=== PATIENT | female | born 1960 | race Caucasian/White ===

== ENCOUNTER 2016-09-15 13:14 | Inpatient (IN) ==
[2016-09-15] MEDS ORDERED: Ipratropium/Albuterol Neb 3 ML IH ONE (13:19)
[2016-09-15] MEDS ORDERED: predniSONE 20 MG TABLET PO ONE (13:19)
--- NOTE | 2016-09-15 13:26 | Emergency Department Note ---
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 Patient reports she started having shortness of breath last night. She reports a productive cough with yellow sputum. EMS reports when they arrived this morning she was 82% on 4 L nasal cannula. They gave her one DuoNeb in route with improvement in the high 90s. She reports getting pneumonia frequently. No fevers at home. Chest pain just with coughing. She is on multiple medications for her COPD but is unable to tell me which. No recent illnesses or antibiotic use. No other complaints. Pt Subjective Complaint: shortness of breath, cough Onset (ago): hour(s) Context: other (History of COPD) Severity: moderate Consistency/Duration: constant Improves with: nothing Worsens with: nothing Known history of: COPD Associated symptoms: Reports: chest pain (With coughing), cough, wheezing, sputum production. Denies: fever, orthopnea, lower extremity pain, nausea/ vomiting Treatment prior to arrival: oxygen, bronchodilator Cough present: Yes Cough Description: Involuntary Cough Frequency: Intermittent Sputum production: Yes Sputum Amount: Small Sputum Color: Yellow - Related Data Home oxygen amount: 3 liters Home Medications Medication Instructions Recorded Confirmed Albuterol Sulfate [Albuterol 2 puff IH Q6HR PRN #0 12/13/14 07/03/15 Inhaler] Aspirin Enteric Coated [Aspirin EC] 81 mg PO DAILY #0 12/13/14 07/03/15 Budesonide/Formoterol 160/4.5 2 puff IH BIDR #0 12/13/14 07/03/15 [Symbicort] Butalb/Acetaminophen/Caffeine 1 each PO Q6H #0 12/13/14 07/03/15 [Fioricet 50-300-40 mg Capsule] Ferrous Sulfate 325 mg PO TID #0 12/13/14 07/03/15 Folic Acid 1 mg PO DAILY #0 12/13/14 07/03/15 Furosemide [Lasix] 20 mg PO DAILY #0 12/13/14 07/03/15 GuaiFENesin/Pseudophedrine 1 each PO BID #0 12/13/14 07/03/15 [Mucinex D] Guaifenesin [Tussin] 10 ml PO Q4H #0 12/13/14 07/03/15 Ipratropium/Albuterol Neb [Duoneb] 3 ml IH Q6HR PRN #0 12/13/14 07/03/15 Isosorbide MONOnitrate (24 HR) 60 mg PO DAILY #0 12/13/14 07/03/15 [Imdur] Nitroglycerin 0.4 mg SL AD PRN #0 12/13/14 07/03/15 Omeprazole [PriLOSEC] 20 mg PO BID #0 12/13/14 07/03/15 Simvastatin [Zocor] 40 mg PO DAILY #0 12/13/14 07/03/15 Thiamine (B-1) [Vitamin B-1] 100 mg PO DAILY #0 12/13/14 07/03/15 Tiotropium [Spiriva] 18 mcg IH DAILY #0 12/13/14 07/03/15 Aclidinium [place] [Tudorza 400 mcg IH BID 01/17/15 07/03/15 Pressair] Fluticasone/Salmeterol [Advair 1 each IH BID 01/17/15 07/03/15 250-50 Diskus] Lisinopril [Zestril] 10 mg PO DAILY 01/17/15 07/03/15 Metoprolol XL (24 HR) Succ [Toprol 12.5 mg PO DAILY 01/17/15 07/03/15 XL] Multivitamin/Iron/Folic Acid 1 each PO DAILY 01/17/15 07/03/15 [Centrum Complete Multivit Tab] Roflumilast [Daliresp] 500 mcg PO DAILY 01/17/15 07/03/15 Previous Rx's Medication Instructions Recorded OxyCODONE/APAP 5/325 [Percocet 1 each PO Q6HR PRN #28 tablet 12/20/14 5/325] Levofloxacin [Levaquin] 500 mg PO DAILY #5 tablet 01/20/15 OxyCODONE Immed Rel [Roxicodone 5 5 mg PO Q6H PRN #28 tablet 01/20/15 MG] PredniSONE 10 mg PO DAILY #73 tablet 01/20/15 Levofloxacin [Levaquin] 750 mg PO DAILY #7 tablet 03/09/15 Alprazolam [Xanax] 0.5 mg PO TID 14 Days 03/10/15 Oxycodone HCl/Acetaminophen 1 each PO Q6H 7 Days 03/10/15 [Percocet 5-325 mg Tablet] predniSONE [PredniSONE] 60 mg PO DAILY 5 Days 07/30/15 Allergies Allergy/AdvReac Type Severity Reaction Status Date / Time No Known Allergies Allergy Verified 07/03/15 01:59 All systems ED: reviewed and negative except as stated. Constitutional: Denies: fever Cardiovascular: Reports: chest pain (With coughing) Respiratory: Reports: cough, dyspnea, wheezes Gastrointestinal: Denies: abdominal pain, nausea, vomiting, diarrhea Past Medical History - Past Medical History Attestation: Yes The following information was validated with the patient. Source: patient Medical history: Reports: CHF, COPD, hyperlipidemia, hypertension, myocardial infarction Surgical history: Reports: appendectomy, coronary bypass (CABG) Psychiatric history: Reports: anxiety - Social History Smoking Status: Current some day smoker Smokeless Tobacco Status: No Alcohol use: Reports: none Drug use: Reports: none Physical Exam - General Limitations: no limitations General appearance: alert, in no apparent distress - Head Head exam: atraumatic, normocephalic, normal inspection - Eye Eye exam: Present: normal appearance, EOMI - Neck Neck exam: Present: normal inspection - Chest Chest inspection: Present: normal inspection, symmetric chest wall rise - Respiratory Respiratory exam: Present: wheezes (Diffuse wheezing with diminished breath sounds in the left lower lung field.), accessory muscle use, prolonged expiratory phase - Cardiovascular Cardiovascular exam: Present: regular rate, normal rhythm, normal heart sounds - Abdominal Exam Abdominal exam: Present: soft, Non-Tender. Absent: tenderness - Extremities Exam Extremities exam: Present: normal inspection, full ROM - Expanded Upper Extremity Exam Shoulder exam: Present: normal inspection, full ROM Arm exam: Present: normal inspection, full ROM Elbow exam: Present: normal inspection, full ROM Forearm/Wrist exam: Present: normal inspection, full ROM Hand exam: Present: normal inspection, full ROM - Expanded Lower Extremity Exam Hip/Pelvis exam: Present: normal inspection, full ROM Upper leg exam: Present: normal inspection, full ROM Knee exam: Present: normal inspection, full ROM Lower leg exam: Present: normal inspection, full ROM Ankle exam: Present: normal inspection, full ROM Foot/toe exam: Present: normal inspection, full ROM - Neurological Exam Neurological exam: Present: alert - Psychiatric Psychiatric exam: Present: normal affect, normal mood - Skin Skin exam: Present: warm, dry, intact, normal color Course Course Narrative: Patient seen and examined at time of arrival. Vital signs reviewed. We will get an EKG, chest x-ray as well as labs including troponin. We will continue breathing treatments here and steroids. Disposition pending. - Reevaluation(s) Reevaluation #1: Discussed results of imaging and lab work with the patient. Vital Signs Temperature 98 F 09/15/16 13:18 Pulse Rate 114 09/15/16 13:18 Respiratory Rate 28 09/15/16 13:18 Blood Pressure 97/45 09/15/16 13:18 O2 Sat by Pulse Oximetry 86 09/15/16 13:18 Temperature 98 F 09/15/16 13:18 Pulse Rate 112 09/15/16 16:00 Respiratory Rate 24 09/15/16 16:00 Blood Pressure 120/62 09/15/16 16:00 O2 Sat by Pulse Oximetry 94 09/15/16 16:00 Oxygen Delivery Oxygen Delivery Nasal Cannula Shortness of Breath/Dyspnea - [facility] Narrative Medical decision making narrative: 56-year-old female presents to the ER via EMS due to shortness of breath and cough one day duration. Afebrile here with diffuse wheezing. EKG is sinus without ischemic changes. Chest x-ray with right lower lobe infiltrate. We pursued a CTA of the chest with no PE however patchy infiltrates of the right middle and lower lobe. Blood cultures obtained and patient will be started on Levaquin for community-acquired pneumonia and admitted to the hospitalist service for community-acquired pneumonia, hypoxia and COPD exacerbation. - Lab Data Lab results reviewed: Yes I reviewed the patient's lab results. Result diagrams: 09/15/16 13:54 09/15/16 13:54 Lab Results 09/15/16 09/15/16 09/15/16 Range/Units 13:54 13:54 13:54 WBC 12.1 H (4.3-11.1) K/mcL RBC 3.91 (3.82-4.97) M/mcL Hgb 10.7 L (11.5-15.4) g/dL Hct 36.8 (35.3-44.9) % MCV 94.1 (83.0-100.0) fL MCH 27.4 L (28.0-33.3) pg MCHC 29.1 L (31.6-35.5) g/dL RDW 13.6 (11.5-14.5) % Plt Count 380 (140-400) K/mcL MPV 10.7 (9.4-12.4) fL Immature Gran % 0.6 (0-4) % Seg Neutrophils % 82.0 % Lymphocytes % 10.0 % Monocytes % 5.4 % Eosinophils % 1.5 % Basophils % 0.5 % Neutrophils # 9.9 H (1.6-8.9) K/mcL Lymphocytes # 1.2 (0.6-4.6) K/mcL Monocytes # 0.7 (0.0-1.3) K/mcL Eosinophils # 0.2 (0.0-0.6) K/mcL Basophils # 0.1 (0.0-0.2) K/mcL Platelet Estimate Normal (Normal) Immature Plt Fraction 8.1 H (1.1-6.1) % Anisocytosis 2+ A (Not Present) Microcytosis Present A (Not Present) Sodium 141 (136-145) mEq/L Potassium 3.9 (3.5-4.5) mEq/L Chloride 98 (98-109) mEq/L Carbon Dioxide 31 H (19-29) mEq/L BUN 9 (7-20) mg/dL Creatinine 0.87 (0.57-1.11) mg/dL Est GFR ( Amer) > 60 (> 60) Est GFR (Non-Af Amer) > 60 (> 60) BUN/Creatinine Ratio 10 (6-26) Glucose 120 H (70-99) mg/dL Calculated Osmolality 292 (280-300) Calcium 10.5 (8.6-10.8) mg/dL Troponin I 0.00 (0-0.03) ng/mL B-Natriuretic Peptide (0-100) pg/mL 09/15/16 Range/Units 13:54 WBC (4.3-11.1) K/mcL RBC (3.82-4.97) M/mcL Hgb (11.5-15.4) g/dL Hct (35.3-44.9) % MCV (83.0-100.0) fL MCH (28.0-33.3) pg MCHC (31.6-35.5) g/dL RDW (11.5-14.5) % Plt Count (140-400) K/mcL MPV (9.4-12.4) fL Immature Gran % (0-4) % Seg Neutrophils % % Lymphocytes % % Monocytes % % Eosinophils % % Basophils % % Neutrophils # (1.6-8.9) K/mcL Lymphocytes # (0.6-4.6) K/mcL Monocytes # (0.0-1.3) K/mcL Eosinophils # (0.0-0.6) K/mcL Basophils # (0.0-0.2) K/mcL Platelet Estimate (Normal) Immature Plt Fraction (1.1-6.1) % Anisocytosis (Not Present) Microcytosis (Not Present) Sodium (136-145) mEq/L Potassium (3.5-4.5) mEq/L Chloride (98-109) mEq/L Carbon Dioxide (19-29) mEq/L BUN (7-20) mg/dL Creatinine (0.57-1.11) mg/dL Est GFR ( Amer) (> 60) Est GFR (Non-Af Amer) (> 60) BUN/Creatinine Ratio (6-26) Glucose (70-99) mg/dL Calculated Osmolality (280-300) Calcium (8.6-10.8) mg/dL Troponin I (0-0.03) ng/mL B-Natriuretic Peptide 106 H (0-100) pg/mL - Radiology Data Radiology results reviewed: Yes I reviewed the patient's radiology results. Chest X-Ray 09/15/16 13:19 IMPRESSION: 1. Findings consistent with COPD. 2. New patchy bilateral pulmonary nodular opacities. Given the interval change since the 08/22/2015 exam this likely represents acute pneumonia or possible septic emboli. Metastatic disease is less likely. D/ / 09/15/2016 13:42:35 John Phan MD / osmar Interpreting Provider: John Phan MD Chest CTA 09/15/16 14:18 IMPRESSION: No acute pulmonary embolus is identified Extensive right lower lobe airspace disease. Patchy airspace disease right middle lobe. Severe emphysema re- demonstrated with scarring changes within the posterior aspect of the right upper lung. D/ / Harshad Lin MD / Harshad Lin MD Interpreting Provider: Harshad Lin MD - EKG Data EKG attestation: Yes I reviewed and interpreted this EKG. EKG results narrative: EKG demonstrates normal sinus rhythm with a rate of 88 bpm. Normal axis. WI interval 139 QRS duration [address] elevations or depressions. No acute ischemic findings. Changes from previous EKG included improvement in rate. S.B.A.R. - S.B.A.RShawna Situation: Demographics, MOA Background: Presenting Complaint, Relevant PMH, Meds, & Allergies Assessment: Vital Signs, Course and respsone to treatment, Exam Concerns, Patient/Family Expectation, Pertinant Lab Results, Outstanding Labs Recommendation: Barrier(s) to disposition, Recommendation based on pending studies, treatments, or consults S.B.A.RShawna Report Given to: Dr. Benito Otto Repor Time: 16:28 Attestation Statement - Attestation Attestation: I examined this patient and my medical decision-making was reviewed with the SYNTHETIC CHEMIST/PA/Advanced Practice Nurse/Resident Physician. I agree with the documented findings, disposition and treatment plan as described except to the extent set forth below.
[2016-09-15 14:02] LABS: Basophils # 0.1 K/mcL (0.0-0.2); Basophils % 0.5 %; Eosinophils # 0.2 K/mcL (0.0-0.6); Eosinophils % 1.5 %; Hematocrit 36.8 % (35.3-44.9); Hemoglobin 10.7 g/dL (11.5-15.4); Immature Granulocytes % 0.6 % (0-4); Immature Platelets 8.1 % (1.1-6.1); Lymphocytes # 1.2 K/mcL (0.6-4.6); Mean Corpuscular HGB Conc 29.1 g/dL (31.6-35.5); Mean Corpuscular Hemoglobin 27.4 pg (28.0-33.3); Mean Corpuscular Volume 94.1 fL (83.0-100.0); Mean Platelet Volume 10.7 fL (9.4-12.4); Monocytes # 0.7 K/mcL (0.0-1.3); Monocytes % 5.4 %; Neutrophils # 9.9 K/mcL (1.6-8.9); Platelet Count 380 K/mcL (140-400); Red Blood Count 3.91 M/mcL (3.82-4.97); Red Cell Distribution Width 13.6 % (11.5-14.5)
[2016-09-15 14:13] LABS: BUN/Creatinine Ratio 10 (6-26); Blood Urea Nitrogen 9 mg/dL (7-20); Calcium 10.5 mg/dL (8.6-10.8); Carbon Dioxide 31 mEq/L (19-29); Chloride 98 mEq/L (98-109); Glucose 120 mg/dL (70-99); Osmolality,Calculated 292 (280-300); Potassium 3.9 mEq/L (3.5-4.5); Sodium 141 mEq/L (136-145); eGFR For African Americans > 60 (> 60); eGFR For Non-African Americans > 60 (> 60)
[2016-09-15 14:20] LABS: Anisocytosis 2+ (Not Present); Microcytosis Present (Not Present); Platelet Estimate Normal (Normal)
[2016-09-15] MEDS ORDERED: 0.9 % Sodium Chloride 500 ML IVC ONE (14:34)
[2016-09-15] MEDS ORDERED: Levofloxacin 750 MG/150 ML 750 MG/150 ML BAG IVPB ONE (16:09)
[2016-09-15] MEDS ORDERED: Sennosides/Docusate Sodium TABLET PO PRN (17:54)
--- NOTE | 2016-09-15 17:57 | Internal Med History&Physical ---
Date of Encounter: 09/15/16 Time of Encounter: 17:56 Assessment and Plan (1) COPD exacerbation Current visit: Yes Status: Acute We will keep the patient today on steroids and nebulizer treatment. (2) Community acquired pneumonia Current visit: Yes Status: Acute I will start the patient on levofloxacin intravenously. Because of hypotension on presentation with systolic running between 90 and 100 I will broaden coverage empirically to cover for Pseudomonas with Zosyn until cultures are back. (3) Acute respiratory failure with hypoxia Current visit: Yes Status: Acute Patient was saturating early 80s on our evidence to the emergency room. She has been requiring 4 L of oxygen to maintain her saturation above 90%. She is usually on 2.5 to 3 L of oxygen at home. Internal Medicine - H&P: HPI Chief complaint: sob History of present illness: Ms. Vaughn is a 56 year old female with history of COPD on 2.5-3 L of oxygen 25/11 presents to the emergency room today with the main complain of shortness of breath. For the past day or so patient started noticing progressive shortness of breath to the point where she is unable to breathe at rest associated with productive cough all yellowish and greenish sputum, chills, chest wheezing. She had called the paramedics and she was found to be saturating the early 80s. She denies any recent hospitalization within the past 3 months. No recent antibiotic use. She denies any concerns for aspiration. She has some chest pain only when she coughs or takes a deep breath. She denies any lower extremity swelling, orthopnea, paroxysmal nocturnal dyspnea. Past Med Surg Social Fam HX - Past Medical History Medical history: CHF, COPD, hyperlipidemia, hypertension, myocardial infarction Psychiatric history: anxiety - Past Surgical History Surgical History: appendectomy, coronary bypass (CABG) - Social History Smoking Status: Current some day smoker Smokeless Tobacco Status: No Alcohol use: none Drug use: none - Family History Father Living Status: Hx Family Cardiac Disorders: Yes (Father of ID) Internal Medicine - H&P: Meds Albuterol Sulfate [Albuterol Inhaler] 2 puff IH Q6HR PRN #0 12/13/14 [History] Aspirin Enteric Coated [Aspirin EC] 81 mg PO DAILY #0 12/13/14 [History] Ferrous Sulfate 325 mg PO TID #0 12/13/14 [History] Folic Acid 1 mg PO DAILY #0 12/13/14 [History] Nitroglycerin 0.4 mg SL AD PRN #0 12/13/14 [History] Omeprazole [PriLOSEC] 20 mg PO BID #0 12/13/14 [History] Thiamine (B-1) [Vitamin B-1] 100 mg PO DAILY #0 12/13/14 [History] Lisinopril [Zestril] 10 mg PO DAILY 01/17/15 [History] Metoprolol XL (24 HR) Succ [Toprol XL] 25 mg PO DAILY 01/17/15 [History] Multivitamin/Iron/Folic Acid [Centrum Complete Multivit Tab] 1 each PO DAILY [History] Cetirizine HCl [All Day Allergy] 10 mg PO DAILY PRN 09/15/16 [History] Fluticasone Propionate [Flovent Hfa] 1 puff IH BID PRN 09/15/16 [History] Ipratropium/Albuterol Sulfate [Combivent Respimat Inhal [place]] 1 puff IH QID PRN 09/15/16 [History] Sennosides/Docusate Sodium [Senna-S Tablet] 1 each PO DAILY PRN 09/15/16 [ History] Simvastatin [Zocor] 10 mg PO HS 09/15/16 [History] Zolpidem [Ambien] 10 mg PO HS PRN 09/15/16 [History] Allergies No Known Allergies Allergy (Verified 09/15/16 17:19) All Systems PM: A 10-system review of systems was performed and is negative for pertinent findings except as documented above in the HPI. Review of systems: 10 point review of systems is negative except for HPI - Constitutional Vitals: Temp Pulse Resp BP Pulse Ox 98 F 95 18 102/58 100 09/15/16 13:18 09/15/16 17:03 09/15/16 17:03 09/15/16 17:03 09/15/16 17:03 Exam: Gen.: patient is alert oriented times 3 not in distress. Cardiac: normal S1 S2 no additional sounds chest: Diminished air entry in the right base abdomen: soft nontender nondistended lower extremity: lax calf muscles. Neuro: No focal deficits. Internal Med - H&P Results - Labs CBC & Chem 7: 09/15/16 13:54 09/15/16 13:54 Labs: Short CBC 09/15/16 Range/Units 13:54 WBC 12.1 H (4.3-11.1) K/mcL Hgb 10.7 L (11.5-15.4) g/dL Hct 36.8 (35.3-44.9) % Plt Count 380 (140-400) K/mcL Neutrophils # 9.9 H (1.6-8.9) K/mcL BMP 09/15/16 13:54 Sodium 141 Potassium 3.9 Chloride 98 Carbon Dioxide 31 H BUN 9 Creatinine 0.87 Glucose 120 H Calcium 10.5 Cardiac Enzymes 09/15/16 Range/Units 13:54 Troponin I 0.00 (0-0.03) ng/mL - Impressions ITS Impressions Chest X-Ray 09/15/16 13:19 IMPRESSION: 1. Findings consistent with COPD. 2. New patchy bilateral pulmonary nodular opacities. Given the interval change since the 08/22/2015 exam this likely represents acute pneumonia or possible septic emboli. Metastatic disease is less likely. D/ / 09/15/2016 13:42:35 John Phan MD / osmar Interpreting Provider: John Phan MD Chest CTA 09/15/16 14:18 IMPRESSION: No acute pulmonary embolus is identified Extensive right lower lobe airspace disease. Patchy airspace disease right middle lobe. Severe emphysema re- demonstrated with scarring changes within the posterior aspect of the right upper lung. D/ / Harshad Lin MD / Harshad Lin MD Interpreting Provider: Harshad Lin MD
[2016-09-15] MEDS: Piperacillin/Tazobactam 3.375 GM in D5% in Water (Mini-Bag+) 100 ML IVPB SCH (18:48)
[2016-09-15] MEDS: MethylPREDNISolone 40 MG/ML VIAL IVP SCH ×2 (18:48→23:55)
[2016-09-15] MEDS ORDERED: Albuterol 2.5 MG/3 ML NEBULIZER IH PRN (19:52)
[2016-09-15] MEDS ORDERED: Ipratropium/Albuterol Neb 3 ML ONE (19:55)
[2016-09-15] MEDS: Ipratropium/Albuterol Neb 3 ML IH SCH (19:58)
[2016-09-15] MEDS ORDERED: Fluticasone Propionate Nasal 50 MCG/SPRAY BOTTLE NS PRN (22:00)
[2016-09-16] MEDS: Ipratropium/Albuterol Neb 3 ML IH SCH ×6 (00:01→20:00)
[2016-09-16] MEDS: Acetaminophen 325 MG TABLET PO PRN ×3 (00:20→19:29)
[2016-09-16] MEDS: Piperacillin/Tazobactam 3.375 GM in D5% in Water (Mini-Bag+) 100 ML IVPB SCH ×3 (02:15→17:08)
[2016-09-16] MEDS: MethylPREDNISolone 40 MG/ML VIAL IVP SCH ×3 (04:38→17:08)
[2016-09-16 08:26] LABS: Hematocrit 29.5 % (35.3-44.9); Hemoglobin 8.9 g/dL (11.5-15.4); Immature Granulocytes % 2.2 % (0-4); Lymphocytes # 0.4 K/mcL (0.6-4.6); Lymphocytes % 9.7 %; Mean Corpuscular HGB Conc 30.2 g/dL (31.6-35.5); Mean Corpuscular Hemoglobin 27.2 pg (28.0-33.3); Mean Corpuscular Volume 90.2 fL (83.0-100.0); Mean Platelet Volume 11.1 fL (9.4-12.4); Monocytes # 0.1 K/mcL (0.0-1.3); Monocytes % 1.7 %; Neutrophils # 3.5 K/mcL (1.6-8.9); Platelet Count 270 K/mcL (140-400); Red Blood Count 3.27 M/mcL (3.82-4.97); Red Cell Distribution Width 13.2 % (11.5-14.5); Segmented Neutrophils % 86.4 %
[2016-09-16] MEDS: Folic Acid 1 MG TABLET PO SCH (08:32)
[2016-09-16] MEDS: Aspirin Enteric Coated 81 MG Tablet PO SCH (08:32)
[2016-09-16] MEDS: Thiamine (B-1) 100 MG TABLET PO SCH (08:32)
[2016-09-16 08:37] LABS: BUN/Creatinine Ratio 13 (6-26); Blood Urea Nitrogen 11 mg/dL (7-20); Calcium 9.4 mg/dL (8.6-10.8); Carbon Dioxide 28 mEq/L (19-29); Chloride 97 mEq/L (98-109); Glucose 159 mg/dL (70-99); Osmolality,Calculated 291 (280-300); Potassium 3.8 mEq/L (3.5-4.5); Sodium 139 mEq/L (136-145); eGFR For African Americans > 60 (> 60); eGFR For Non-African Americans > 60 (> 60)
[2016-09-16] MEDS: ALPRAZolam 0.5 MG TABLET PO PRN ×2 (10:30→19:29)
--- NOTE | 2016-09-16 11:32 | Electrocardiograph Report ---
[place] [id number] Test Date: 2016-09-15 Pat Name: Amy Vaughn Department: 102 Room: 2A Gender: F Voice Teacher: : 1960 Requested By: Hira Tom Order Number: [id number] Reading MD: Dunia Gomez Measurements Intervals [place] Rate: 88 P: 85 MN: 139 QRS: 54 QRSD: 85 T: 75 QT: 358 QTc: 404 Interpretive Statements SINUS RHYTHM NONSPECIFIC ST ABNORMALITIES Electronically Signed On 09-16-2016 11:30:36 EDT by Dunia Gomez
--- NOTE | 2016-09-16 11:53 | Internal Med Progress Note ---
Date of Encounter: 09/16/16 Time of Encounter: 11:51 - Assessment and plan (1) Acute exacerbation of chronic obstructive airways disease Current Visit: No Status: Resolved Assessment and plan: clinically better, will taper the steroids, continue duonebs saturating well on 3l, at home she is on 2.5 l (2) CAD (coronary artery disease) Current Visit: No Status: Chronic Qualifiers: Coronary Disease-Associated Artery/Lesion type: redding artery [place] vs. transplanted heart: redding heart Associated angina: without angina Qualified Code(s): I25.10 - Atherosclerotic heart disease of redding coronary artery without angina pectoris (3) Hx of CABG Current Visit: No Status: Chronic (4) HTN (hypertension) Current Visit: No Status: Chronic Qualifiers: Hypertension type: essential hypertension Qualified Code(s): I10 - Essential (primary) hypertension (5) Community acquired pneumonia Current Visit: Yes Status: Acute Assessment and plan: CT shows extensive rt. lower airspace disease, started on zosyn and levaquin will continue IV antibiotics,send sputum for gram stain. will de escalate once cx results are back and once clinically imporving. (6) Acute respiratory failure with hypoxia Current Visit: Yes Status: Acute Assessment and plan: improved with breathing tx and IV antibiotics and steroids most likely 2/2 pneumonia and COPD exacerbation currently at 2 l and saturating 99%. - Subjective Interval history: patient admitted for COPD exacerbation and pneumonia, reports that the breathing is better than yesterday. c/o cough with productive sputum, denies chest pain or sob at this time. - Constitutional Vitals: Temp Pulse Resp BP Pulse Ox 98.0 F 99 16 98/61 99 09/16/16 11:33 09/16/16 11:33 09/16/16 11:33 09/16/16 11:33 09/16/16 11:33 General appearance: Present: A&O X 3 Exam: Gen.: patient is alert oriented times 3 not in distress. Cardiac: normal S1 S2 no additional sounds chest: b/l clear, no wheezing or creptns abdomen: soft nontender nondistended lower extremity: lax calf muscles. Neuro: No focal deficits. Internal Medicine: Result - Labs CBC & Chem 7: 09/16/16 08:19 09/16/16 08:19 Labs: Short CBC 09/16/16 Range/Units 08:19 WBC 4.1 L D (4.3-11.1) K/mcL Hgb 8.9 L D (11.5-15.4) g/dL Hct 29.5 L (35.3-44.9) % Plt Count 270 (140-400) K/mcL Neutrophils # 3.5 (1.6-8.9) K/mcL BMP 09/16/16 08:19 Sodium 139 Potassium 3.8 Chloride 97 L Carbon Dioxide 28 BUN 11 Creatinine 0.83 Glucose 159 H Calcium 9.4 Consult Discharge Plan - Plan Referrals: NO,PCP [Primary Care Provider] -
[2016-09-16] MEDS ORDERED: *HR* OxyCODONE/APAP 5/325 TABLET PO ONE (17:14)
[2016-09-17] MEDS: MethylPREDNISolone 40 MG/ML VIAL IVP SCH ×2 (00:07→05:11)
[2016-09-17] MEDS: Ipratropium/Albuterol Neb 3 ML IH SCH ×7 (00:10→23:14)
[2016-09-17] MEDS: Piperacillin/Tazobactam 3.375 GM in D5% in Water (Mini-Bag+) 100 ML IVPB SCH ×2 (02:39→10:19)
[2016-09-17] MEDS: Acetaminophen 325 MG TABLET PO PRN ×2 (05:10→16:31)
[2016-09-17] MEDS: Aspirin Enteric Coated 81 MG Tablet PO SCH (08:40)
[2016-09-17] MEDS: Folic Acid 1 MG TABLET PO SCH (08:40)
[2016-09-17] MEDS: Thiamine (B-1) 100 MG TABLET PO SCH (08:40)
[2016-09-17] MEDS ORDERED: Levofloxacin 750 MG/150 ML 750 MG/150 ML BAG IVPB SCH (09:00)
[2016-09-17 09:28] LABS: Hematocrit 28.2 % (35.3-44.9); Hemoglobin 8.5 g/dL (11.5-15.4); Immature Granulocytes % 1.5 % (0-4); Immature Platelets 9.3 % (1.1-6.1); Lymphocytes # 0.3 K/mcL (0.6-4.6); Lymphocytes % 4.4 %; Mean Corpuscular HGB Conc 30.1 g/dL (31.6-35.5); Mean Corpuscular Hemoglobin 27.8 pg (28.0-33.3); Mean Corpuscular Volume 92.2 fL (83.0-100.0); Mean Platelet Volume 11.2 fL (9.4-12.4); Monocytes # 0.1 K/mcL (0.0-1.3); Monocytes % 1.5 %; Neutrophils # 6.4 K/mcL (1.6-8.9); Platelet Count 266 K/mcL (140-400); Red Blood Count 3.06 M/mcL (3.82-4.97); Red Cell Distribution Width 13.4 % (11.5-14.5); Segmented Neutrophils % 92.6 %
[2016-09-17] MEDS: ALPRAZolam 0.5 MG TABLET PO PRN (09:33)
[2016-09-17 09:48] LABS: BUN/Creatinine Ratio 22 (6-26); Blood Urea Nitrogen 20 mg/dL (7-20); Calcium 9.1 mg/dL (8.6-10.8); Carbon Dioxide 34 mEq/L (19-29); Chloride 92 mEq/L (98-109); Glucose 235 mg/dL (70-99); Osmolality,Calculated 294 (280-300); Sodium 137 mEq/L (136-145); eGFR For African Americans > 60 (> 60); eGFR For Non-African Americans > 60 (> 60)
[2016-09-17] MEDS ORDERED: methylPREDNISolone 125 MG/2 ML VIAL IVP SCH (13:45)
--- NOTE | 2016-09-17 13:59 | Internal Med Progress Note ---
Date of Encounter: 09/17/16 Time of Encounter: 13:58 - Assessment and plan (1) Acute exacerbation of chronic obstructive airways disease Current Visit: No Status: Resolved Assessment and plan: clinically better, will taper the steroids, continue duonebs saturating well on 3l, at home she is on 2.5 l (2) CAD (coronary artery disease) Current Visit: No Status: Chronic Qualifiers: Coronary Disease-Associated Artery/Lesion type: eek artery [place] vs. transplanted heart: eek heart Associated angina: without angina Qualified Code(s): I25.10 - Atherosclerotic heart disease of eek coronary artery without angina pectoris (3) Hx of CABG Current Visit: No Status: Chronic (4) HTN (hypertension) Current Visit: No Status: Chronic Qualifiers: Hypertension type: essential hypertension Qualified Code(s): I10 - Essential (primary) hypertension (5) Community acquired pneumonia Current Visit: Yes Status: Acute Assessment and plan: CT shows extensive rt. lower airspace disease, started on zosyn and levaquin sputum for gram stain shows gram positive cocci. no leukocytosis or fever at this time. We will stop the Zosyn and continue levofloxacin for now. Possible discharge tomorrow if stable overnight. (6) Acute respiratory failure with hypoxia Current Visit: Yes Status: Acute Assessment and plan: improved with breathing tx and IV antibiotics and steroids most likely 2/2 pneumonia and COPD exacerbation currently at 2 l and saturating 99%. - Subjective Interval history: patient admitted for COPD exacerbation and pneumonia, reports that the breathing is better than yesterday. c/o cough with productive sputum, denies chest pain or sob at this time. - Constitutional Vitals: Temp Pulse Resp BP Pulse Ox 98.0 F 109 16 107/64 95 09/17/16 10:38 09/17/16 10:38 09/17/16 10:59 09/17/16 10:38 09/17/16 10:59 General appearance: Present: A&O X 3 Exam: Gen.: patient is alert oriented times 3 not in distress. Cardiac: normal S1 S2 no additional sounds chest: b/l clear, no wheezing or creptns abdomen: soft nontender nondistended lower extremity: lax calf muscles. Neuro: No focal deficits. Internal Medicine: Result - Labs CBC & Chem 7: 09/17/16 09:11 09/17/16 09:11 Labs: Short CBC 05/16/17 Range/Units 09:11 WBC 6.9 D (4.3-11.1) K/mcL Hgb 8.5 L (11.5-15.4) g/dL Hct 28.2 L (35.3-44.9) % Plt Count 266 (140-400) K/mcL Neutrophils # 6.4 (1.6-8.9) K/mcL BMP 09/17/16 09:11 Sodium 137 Potassium 4.0 Chloride 92 L Carbon Dioxide 34 H BUN 20 Creatinine 0.89 Glucose 235 H Calcium 9.1 Consult Discharge Plan - Plan Referrals: NO,PCP [Primary Care Provider] - (patient is unsure to have a PCP, stated she has no transportation)
[2016-09-17] MEDS ORDERED: Levalbuterol Neb 1.25 MG/3 ML IH PRN (20:06)
[2016-09-17] MEDS ORDERED: 0.9 % Sodium Chloride 250 ML IVC ONE (20:08)
[2016-09-17] MEDS ORDERED: Nitroglycerin 0.4 MG TAB.SUBL SL STA (21:52)
[2016-09-17] MEDS: Nitroglycerin 0.4 MG TAB.SUBL SL PRN (22:08)
[2016-09-17] MEDS ORDERED: *HR* Morphine 2 MG/ML SYRINGE IVP ONE (22:29)
[2016-09-17] MEDS ORDERED: 0.9 % Sodium Chloride 500 ML IVC ONE (22:31)
[2016-09-18] MEDS ORDERED: *HR* HYDROmorphone (PF) 1 MG/ML SYRINGE IVP ONE (00:03)
[2016-09-18] MEDS ORDERED: 0.9 % Sodium Chloride 500 ML IVC ONE (00:03)
[2016-09-18 00:47] LABS: Chol/HDL Ratio 3.5 (0-4.9)
[2016-09-18] MEDS ORDERED: *HR* OxyCODONE/APAP 5/325 TABLET PO ONE (01:26)
[2016-09-18] MEDS ORDERED: *HR* OxyCODONE Immed Rel 5 MG TABLET PO ONE (03:42)
[2016-09-18] MEDS: Ipratropium/Albuterol Neb 3 ML IH SCH ×6 (03:45→23:06)
[2016-09-18] MEDS: Acetaminophen 325 MG TABLET PO PRN ×2 (05:18→16:05)
[2016-09-18] MEDS: ALPRAZolam 0.5 MG TABLET PO PRN ×2 (05:18→16:05)
[2016-09-18 08:14] LABS: BUN/Creatinine Ratio 19 (6-26); Blood Urea Nitrogen 17 mg/dL (7-20); Calcium 8.7 mg/dL (8.6-10.8); Carbon Dioxide 32 mEq/L (19-29); Chloride 99 mEq/L (98-109); Glucose 106 mg/dL (70-99); Osmolality,Calculated 300 (280-300); Potassium 3.3 mEq/L (3.5-4.5); Sodium 144 mEq/L (136-145); eGFR For African Americans > 60 (> 60); eGFR For Non-African Americans > 60 (> 60)
[2016-09-18] MEDS: Aspirin Enteric Coated 81 MG Tablet PO SCH (08:39)
[2016-09-18] MEDS: Thiamine (B-1) 100 MG TABLET PO SCH (08:39)
[2016-09-18] MEDS: Folic Acid 1 MG TABLET PO SCH (08:39)
[2016-09-18] MEDS: predniSONE 20 MG TABLET PO SCH (08:39)
[2016-09-18] MEDS: Levofloxacin 750 MG/150 ML 750 MG/150 ML BAG IVPB SCH (08:40)
[2016-09-18 08:52] LABS: Basophils % 0.2 %; Eosinophils % 0.1 %; Hematocrit 28.7 % (35.3-44.9); Hemoglobin 8.5 g/dL (11.5-15.4); Immature Granulocytes % 2.8 % (0-4); Lymphocytes # 1.6 K/mcL (0.6-4.6); Mean Corpuscular HGB Conc 29.6 g/dL (31.6-35.5); Mean Corpuscular Volume 94.4 fL (83.0-100.0); Mean Platelet Volume 11.7 fL (9.4-12.4); Monocytes # 0.7 K/mcL (0.0-1.3); Monocytes % 8.6 %; Neutrophils # 6.1 K/mcL (1.6-8.9); Nucleated Red Blood Cells 0.2 /100 WBC (0); Platelet Count 274 K/mcL (140-400); Red Blood Count 3.04 M/mcL (3.82-4.97); Red Cell Distribution Width 13.7 % (11.5-14.5); Segmented Neutrophils % 70.3 %
[2016-09-18] MEDS ORDERED: Ondansetron 4 MG/2 ML VIAL IVP PRN (11:07)
--- NOTE | 2016-09-18 11:57 | Internal Med Progress Note ---
Date of Encounter: 09/18/16 Time of Encounter: 11:51 - Assessment and plan (1) Acute respiratory failure with hypoxia Current Visit: Yes Status: Acute Assessment and plan: improved with breathing tx and IV antibiotics and steroids most likely 2/2 pneumonia and COPD exacerbation currently at 2 l and saturating 99%. (2) Community acquired pneumonia Current Visit: Yes Status: Acute Assessment and plan: CT shows extensive rt. lower airspace disease, started on zosyn and levaquin initially sputum for gram stain shows gram positive cocci. no leukocytosis or fever at this time. continue levofloxacin for now. discharge tomorrow if stable overnight. (3) Acute exacerbation of chronic obstructive airways disease Current Visit: No Status: Resolved Assessment and plan: clinically better, steroids has been tapered and changed to oral/ saturating well on2l, at home she is on 2.5 l dc tomm am (4) CAD (coronary artery disease) Current Visit: No Status: Chronic Qualifiers: Coronary Disease-Associated Artery/Lesion type: [place] artery [place] vs. transplanted heart: [place] heart Associated angina: without angina Qualified Code(s): I25.10 - Atherosclerotic heart disease of [place] coronary artery without angina pectoris (5) Hx of CABG Current Visit: No Status: Chronic (6) HTN (hypertension) Current Visit: No Status: Chronic Qualifiers: Hypertension type: essential hypertension Qualified Code(s): I10 - Essential (primary) hypertension - Subjective Interval history: patient admitted for COPD exacerbation and pneumonia, reports that keke feels nauseated today and says that she is not ready to be discharged yet. c/o cough with productive sputum, denies chest pain or sob at this time. - Constitutional Vitals: Temp Pulse Resp BP Pulse Ox 98.3 F 110 16 97/63 100 09/18/16 07:24 09/18/16 07:24 09/18/16 11:14 09/18/16 07:24 09/18/16 11:14 General appearance: Present: A&O X 3 Exam: Gen.: patient is alert oriented times 3 not in distress. Cardiac: normal S1 S2 no additional sounds chest: b/l clear, no wheezing or creptns abdomen: soft nontender nondistended lower extremity: lax calf muscles. Neuro: No focal deficits. Internal Medicine: Result - Labs CBC & Chem 7: 09/18/16 05:14 09/18/16 05:14 Labs: Short CBC 09/18/16 Range/Units 05:14 WBC 8.6 (4.3-11.1) K/mcL Hgb 8.5 L (11.5-15.4) g/dL Hct 28.7 L (35.3-44.9) % Plt Count 274 (140-400) K/mcL Neutrophils # 6.1 (1.6-8.9) K/mcL BMP 09/18/16 05:14 Sodium 144 D Potassium 3.3 L Chloride 99 Carbon Dioxide 32 H BUN 17 Creatinine 0.90 Glucose 106 H Calcium 8.7 Cardiac Enzymes 09/18/16 09/18/16 09/18/16 Range/Units 00:18 05:14 10:33 Troponin I 0.01 0.02 0.01 (0-0.03) ng/mL Consult Discharge Plan - Plan Referrals: NO,PCP [Primary Care Provider] - (patient is unsure to have a PCP, stated she has no transportation)
--- NOTE | 2016-09-18 20:38 | Electrocardiograph Report ---
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
--- NOTE | 2016-09-18 20:42 | Electrocardiograph Report ---
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
[2016-09-18] MEDS: Nitroglycerin 0.4 MG TAB.SUBL SL PRN ×3 (21:23→21:37)
[2016-09-18] MEDS: *HR* OxyCODONE Immed Rel 5 MG TABLET PO PRN (22:04)
[2016-09-18] MEDS ORDERED: *HR* Morphine 2 MG/ML SYRINGE IVP ONE (22:59)
[2016-09-19] MEDS: ALPRAZolam 0.5 MG TABLET PO PRN (02:05)
[2016-09-19] MEDS: Ipratropium/Albuterol Neb 3 ML IH SCH ×4 (03:52→15:04)
[2016-09-19] MEDS: *HR* OxyCODONE Immed Rel 5 MG TABLET PO PRN (06:20)
[2016-09-19] MEDS: Aspirin Enteric Coated 81 MG Tablet PO SCH (08:43)
[2016-09-19] MEDS: Thiamine (B-1) 100 MG TABLET PO SCH (08:43)
[2016-09-19] MEDS: predniSONE 20 MG TABLET PO SCH (08:44)
[2016-09-19] MEDS: Levofloxacin 750 MG/150 ML 750 MG/150 ML BAG IVPB SCH (08:44)
[2016-09-19] MEDS: Folic Acid 1 MG TABLET PO SCH (08:44)
--- NOTE | 2016-09-19 08:45 | Discharge Summary ---
Date of Encounter: 09/19/16 Time of Encounter: 08:34 - Discharge Diagnosis (1) Acute respiratory failure with hypoxia Priority: Primary Status: Acute (2) Community acquired pneumonia Priority: Primary Status: Acute (3) Acute exacerbation of chronic obstructive airways disease Priority: Primary Status: Resolved (4) CAD (coronary artery disease) Priority: Secondary Status: Chronic Qualifiers: Coronary Disease-Associated Artery/Lesion type: [place] artery [place] vs. transplanted heart: [place] heart Associated angina: without angina Qualified Code(s): I25.10 - Atherosclerotic heart disease of [place] coronary artery without angina pectoris (5) Hx of CABG Priority: Secondary Status: Chronic (6) HTN (hypertension) Priority: Secondary Status: Chronic Qualifiers: Hypertension type: essential hypertension Qualified Code(s): I10 - Essential (primary) hypertension - Discharge Medications Prescriptions: Albuterol Sulfate [Albuterol Inhaler] 1 puff IH Q4H PRN #3 inhaler PRN Reason: sob GuaiFENesin ER [Mucinex] 600 mg PO BID 10 Days Levofloxacin [Levaquin] 750 mg PO DAILY #5 tablet predniSONE [PredniSONE] See Taper PO DAILY #65 tablet Home Medications: Albuterol Sulfate [Albuterol Inhaler] 2 puff IH Q6HR PRN #0 12/13/14 [History] Aspirin Enteric Coated [Aspirin EC] 81 mg PO DAILY #0 12/13/14 [History] Ferrous Sulfate 325 mg PO TID #0 12/13/14 [History] Folic Acid 1 mg PO DAILY #0 12/13/14 [History] Nitroglycerin 0.4 mg SL AD PRN #0 12/13/14 [History] Omeprazole [PriLOSEC] 20 mg PO BID #0 12/13/14 [History] Thiamine (B-1) [Vitamin B-1] 100 mg PO DAILY #0 12/13/14 [History] Lisinopril [Zestril] 10 mg PO DAILY 01/17/15 [History] Metoprolol XL (24 HR) Succ [Toprol XL] 25 mg PO DAILY 01/17/15 [History] Multivitamin/Iron/Folic Acid [Centrum Complete Multivit Tab] 1 each PO DAILY [History] Cetirizine HCl [All Day Allergy] 10 mg PO DAILY PRN 09/15/16 [History] Fluticasone Propionate [Flovent Hfa] 1 puff IH BID PRN 09/15/16 [History] Ipratropium/Albuterol Sulfate [Combivent Respimat Inhal [place]] 1 puff IH QID PRN 09/15/16 [History] Sennosides/Docusate Sodium [Senna-S Tablet] 1 each PO DAILY PRN 09/15/16 [ History] Simvastatin [Zocor] 10 mg PO HS 09/15/16 [History] Amlodipine Besylate 10 mg PO DAILY 09/16/16 [History] Magnesium Oxide [Mgo] 400 mg PO DAILY 09/16/16 [History] Albuterol Sulfate [Albuterol Inhaler] 1 puff IH Q4H PRN #3 inhaler 09/19/16 [Rx] GuaiFENesin ER [Mucinex] 600 mg PO BID 10 Days 09/19/16 [Rx] Levofloxacin [Levaquin] 750 mg PO DAILY #5 tablet 09/19/16 [Rx] predniSONE [PredniSONE] See Taper PO DAILY #65 tablet 09/19/16 [Rx] Allergies/Adverse Reactions: Allergies No Known Allergies Allergy (Verified 09/15/16 17:19) Procedures/tests Complete & Pending: Procedures Performed prior 72 hours Category Date Time Status ECG 12 lead ECG [ECG] Routine Y 09/17/16 19:05 Completed EKG [ECG 12 lead ECG] [ECG] Stat Y 09/17/16 21:46 Completed Date of admission: 09/15/16 17:57 Primary care physician: PCP NO Consults: 09/15/16 18:38 Consult to Car Body Designer [CONS] Routine Reason for SW Consult: Discharge planning Discharging clinician: Leeann Alberts Anticipated date of discharge: 09/19/16 - Patient Status Disposition: Home Health Service Condition: Fair Functional capacity at discharge: uses cane/walker Overall status at discharge: patient is back to baseline - Discharge Instructions Instructions: Heart Failure (DC), Chronic Obstructive Pulmonary Disease (DC), Pneumonia (DC) Follow Up With: NO,PCP [Primary Care Provider] - (Once you have obtained a home address where Ms. Vaughn will be residing please call [phone] to arrange a follow up appointment or call the [facility] So they can help arrange home health. If needs transportation to and from these appointments please call the number on the back of your insurance card with days in advance and they will provide you a way.) Additional Instructions: Once you have obtained a home address where Ms. Vaughn will be residing please call [phone] to arrange a follow up appointment or call the [facility] So they can help arrange home health. If needs transportation to and from these appointments please call the number on the back of your insurance card with days in advance and they will provide you a way. - Diet and Activity Activity: resume usual activities as tolerated Diet: advance to your usual diet Interval History: Ms. Vaughn is a 56 year old female with history of COPD on 2.5-3 L of oxygen 25/11 presents to the emergency room with the main complain of shortness of breath. she is unable to breathe at rest associated with productive cough all yellowish and greenish sputum, chills, chest wheezing. She had called the paramedics and she was found to be saturating the early 80s. She denies any recent hospitalization within the past 3 months. No recent antibiotic use. She denies any concerns for aspiration. CT shows extensive rt. lower airspace disease, started on zosyn and levaquin initially. She improved clinically, no fever and the leukocytosis resolved. She was also treated with IV steroids and DuoNeb nebs for concomitant COPD exacerbation, steroids were gradually tapered. At this time she is saturating 96% on 2 L, at her baseline, stable to be discharged. Bedside PT OT was consulted, recommended home health. She is being discharged to home with home health. Hospital course: Ms. Vaughn is a 56 year old female - Time Spent with Patient Total time spent providing and/or coordinating discharge services: - Constitutional Vitals: Temp Pulse Resp BP Pulse Ox 97.8 F 93 16 121/87 100 09/19/16 07:30 09/19/16 07:30 09/19/16 07:30 09/19/16 07:30 09/19/16 07:30 General appearance: Present: A&O X 3 Exam: Gen.: patient is alert oriented times 3 not in distress. Cardiac: normal S1 S2 no additional sounds chest: b/l clear, no wheezing or creptns abdomen: soft nontender nondistended lower extremity: lax calf muscles. Neuro: No focal deficits. - VTE Documentation of Mechanical Device: Intermittent pneumatic compression device
[2016-09-19] MEDS: Acetaminophen 325 MG TABLET PO PRN ×2 (08:49→15:51)
[2016-09-19 11:55] VITALS: BP 105/68
--- NOTE | 2016-09-19 18:43 | Electrocardiograph Report ---
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
[2016-09-20] MEDS ORDERED: levoFLOXacin 500 MG TABLET PO SCH (09:00)
== END 2016-09-19 16:28 | disposition home health service (06) | DRG 140 ==
LOC: EMEROO 13:14 → 2ANU 17:57
PROVIDERS: ADMIT Hospitalist; ATTEND Internal Medicine

== ENCOUNTER 2016-09-22 23:34 | Observation (INO) ==
--- NOTE | 2016-09-22 23:38 | Emergency Department Note ---
Disposition Clinical Impression: Pneumonia, Dyspnea Disposition: Admitted As Inpatient Condition: Good General Adult HPI - General Chief complaint: ED Chest Pain Stated complaint: CP/REA Time Seen by Provider: 09/22/16 23:36 - Related Data Home Medications Medication Instructions Recorded Confirmed Albuterol Sulfate [Albuterol 2 puff IH Q6HR PRN #0 12/13/14 09/23/16 Inhaler] Aspirin Enteric Coated [Aspirin EC] 81 mg PO DAILY #0 12/13/14 09/23/16 Ferrous Sulfate 325 mg PO TID #0 12/13/14 09/23/16 Folic Acid 1 mg PO DAILY #0 12/13/14 09/23/16 Nitroglycerin 0.4 mg SL AD PRN #0 12/13/14 09/23/16 Omeprazole [PriLOSEC] 20 mg PO BID #0 12/13/14 09/23/16 Thiamine (B-1) [Vitamin B-1] 100 mg PO DAILY #0 12/13/14 09/23/16 Lisinopril [Zestril] 10 mg PO DAILY 01/17/15 09/23/16 Metoprolol XL (24 HR) Succ [Toprol 25 mg PO DAILY 01/17/15 09/23/16 XL] Multivitamin/Iron/Folic Acid 1 each PO DAILY 01/17/15 09/23/16 [Centrum Complete Multivit Tab] Cetirizine HCl [All Day Allergy] 10 mg PO DAILY PRN 09/15/16 09/23/16 Fluticasone Propionate [Flovent 1 puff IH BID PRN 09/15/16 09/23/16 Hfa] Ipratropium/Albuterol Sulfate 1 puff IH QID PRN 09/15/16 09/23/16 [Combivent Respimat Inhal [place]] Sennosides/Docusate Sodium 1 each PO DAILY PRN 09/15/16 09/23/16 [Senna-S Tablet] Simvastatin [Zocor] 10 mg PO HS 09/15/16 09/23/16 Amlodipine Besylate 10 mg PO DAILY 09/16/16 09/23/16 Magnesium Oxide [Mgo] 400 mg PO DAILY 09/16/16 09/23/16 Previous Rx's Medication Instructions Recorded Albuterol Sulfate [Albuterol 1 puff IH Q4H PRN #3 inhaler 09/19/16 Inhaler] GuaiFENesin ER [Mucinex] 600 mg PO BID 10 Days 09/19/16 Levofloxacin [Levaquin] 750 mg PO DAILY #5 tablet 09/19/16 Allergies Allergy/AdvReac Type Severity Reaction Status Date / Time No Known Allergies Allergy Verified 09/15/16 17:19 Past Medical History - Past Medical History Medical history: Reports: CHF, COPD, hyperlipidemia, hypertension, myocardial infarction Surgical history: Reports: appendectomy, coronary bypass (CABG) Psychiatric history: Reports: anxiety - Social History Smoking Status: Former smoker Smokeless Tobacco Status: No Alcohol use: Reports: none Drug use: Reports: none Course Vital Signs Temperature 98.6 F 09/22/16 23:36 Pulse Rate 109 09/22/16 23:36 Respiratory Rate 22 09/22/16 23:36 Blood Pressure 97/79 09/22/16 23:36 O2 Sat by Pulse Oximetry 98 09/22/16 23:36 Temperature 98.3 F 09/23/16 02:37 Pulse Rate 105 09/23/16 02:37 Respiratory Rate 22 09/23/16 02:37 Blood Pressure 98/54 09/23/16 02:37 O2 Sat by Pulse Oximetry 94 09/23/16 02:37 Oxygen Delivery Oxygen Delivery Nasal Cannula Medical Decision Making - Lab Data Result diagrams: 09/23/16 04:03 09/23/16 04:03 Lab Results 09/22/16 09/22/16 09/22/16 Range/Units 23:42 23:42 23:42 WBC 12.9 H (4.3-11.1) K/mcL RBC 3.36 L (3.82-4.97) M/mcL Hgb 9.1 L (11.5-15.4) g/dL Hct 31.3 L (35.3-44.9) % MCV 93.2 (83.0-100.0) fL MCH 27.1 L (28.0-33.3) pg MCHC 29.1 L (31.6-35.5) g/dL RDW 14.6 H (11.5-14.5) % Plt Count 275 (140-400) K/mcL MPV 11.2 (9.4-12.4) fL Immature Gran % 4.1 H (0-4) % Seg Neutrophils % 63.8 % Lymphocytes % 18.1 % Monocytes % 11.0 % Eosinophils % 2.7 % Basophils % 0.3 % Neutrophils # 8.2 (1.6-8.9) K/mcL Lymphocytes # 2.3 (0.6-4.6) K/mcL Monocytes # 1.4 H (0.0-1.3) K/mcL Eosinophils # 0.4 (0.0-0.6) K/mcL Basophils # 0.0 (0.0-0.2) K/mcL Immature Plt Fraction 9.4 H (1.1-6.1) % Sodium 142 (136-145) mEq/L Potassium 5.4 H (3.5-4.5) mEq/L Chloride 96 L (98-109) mEq/L Carbon Dioxide 36 H (19-29) mEq/L BUN 26 H (7-20) mg/dL Creatinine 0.86 (0.57-1.11) mg/dL Est GFR ( Amer) > 60 (> 60) Est GFR (Non-Af Amer) > 60 (> 60) BUN/Creatinine Ratio 30 H (6-26) Glucose 98 (70-99) mg/dL Calculated Osmolality 299 (280-300) Lactic Acid (0.5-2.2) mmol/L Calcium 9.1 (8.6-10.8) mg/dL Troponin I 0.00 (0-0.03) ng/mL B-Natriuretic Peptide (0-100) pg/mL 09/22/16 09/23/16 Range/Units 23:42 01:08 WBC (4.3-11.1) K/mcL RBC (3.82-4.97) M/mcL Hgb (11.5-15.4) g/dL Hct (35.3-44.9) % MCV (83.0-100.0) fL MCH (28.0-33.3) pg MCHC (31.6-35.5) g/dL RDW (11.5-14.5) % Plt Count (140-400) K/mcL MPV (9.4-12.4) fL Immature Gran % (0-4) % Seg Neutrophils % % Lymphocytes % % Monocytes % % Eosinophils % % Basophils % % Neutrophils # (1.6-8.9) K/mcL Lymphocytes # (0.6-4.6) K/mcL Monocytes # (0.0-1.3) K/mcL Eosinophils # (0.0-0.6) K/mcL Basophils # (0.0-0.2) K/mcL Immature Plt Fraction (1.1-6.1) % Sodium (136-145) mEq/L Potassium (3.5-4.5) mEq/L Chloride (98-109) mEq/L Carbon Dioxide (19-29) mEq/L BUN (7-20) mg/dL Creatinine (0.57-1.11) mg/dL Est GFR ( Amer) (> 60) Est GFR (Non-Af Amer) (> 60) BUN/Creatinine Ratio (6-26) Glucose (70-99) mg/dL Calculated Osmolality (280-300) Lactic Acid 0.9 (0.5-2.2) mmol/L Calcium (8.6-10.8) mg/dL Troponin I (0-0.03) ng/mL B-Natriuretic Peptide 85 (0-100) pg/mL Attestation Statement - Attestation Attestation: I examined this patient and my medical decision-making was reviewed with the WATER QUALITY TESTER/PA/Advanced Practice Nurse/Resident Physician. I agree with the documented findings, disposition and treatment plan as described except to the extent set forth below. [id number] time provided Patient presents via EMS from home with complaints of chest pain and dyspnea. She has a history of oxygen-dependent COPD. She is tachypneic and dyspneic on exam but in no acute distress otherwise. Patient seen and evaluated in conjunction with the resident physician Dr. Lind
[2016-09-22] MEDS ORDERED: Ipratropium/Albuterol Neb 3 ML IH ONE (23:45)
[2016-09-23 00:08] LABS: Basophils % 0.3 %; Eosinophils # 0.4 K/mcL (0.0-0.6); Eosinophils % 2.7 %; Hematocrit 31.3 % (35.3-44.9); Hemoglobin 9.1 g/dL (11.5-15.4); Immature Granulocytes % 4.1 % (0-4); Immature Platelets 9.4 % (1.1-6.1); Lymphocytes # 2.3 K/mcL (0.6-4.6); Lymphocytes % 18.1 %; Mean Corpuscular HGB Conc 29.1 g/dL (31.6-35.5); Mean Corpuscular Hemoglobin 27.1 pg (28.0-33.3); Mean Corpuscular Volume 93.2 fL (83.0-100.0); Mean Platelet Volume 11.2 fL (9.4-12.4); Monocytes # 1.4 K/mcL (0.0-1.3); Neutrophils # 8.2 K/mcL (1.6-8.9); Platelet Count 275 K/mcL (140-400); Red Blood Count 3.36 M/mcL (3.82-4.97); Red Cell Distribution Width 14.6 % (11.5-14.5); Segmented Neutrophils % 63.8 %
--- NOTE | 2016-09-23 00:09 | Emergency Department Note ---
Disposition Clinical Impression: Pneumonia Qualifiers: Pneumonia type: due to unspecified organism Laterality: right Lung location: lower lobe of lung Qualified Code(s): J18.1 - Lobar pneumonia, unspecified organism Dyspnea Qualifiers: Dyspnea type: shortness of breath Qualified Code(s): R06.02 - Shortness of breath Disposition: Admitted As Inpatient Condition: Good SOB HPI - General Chief Complaint: ED Chest Pain Stated Complaint: CP/REA Time Seen by Provider: 09/22/16 23:36 Nursing Notes Reviewed: Yes Vital Signs Reviewed: Yes - History of Present Illness 56-year-old female with a history of oxygen-dependent COPD and previous bypass surgery presents to the emergency department with the chief complaint of shortness of breath. She reports over the last 24 hours her breathing has worsened. She was recently in the hospital due to pneumonia and thinks that she is still on antibiotics. She states this has been progressive and not abrupt in onset. She denies any history of DVT or PE and takes no anticoagulants. Denies any lower extremities swelling or pain in the calves. She denies any chest pain or pressure. She denies any nausea or vomiting. She has not had fevers or chills. Denies any lightheadedness or syncope. She reports exertional dyspnea. - Related Data Home Medications Medication Instructions Recorded Confirmed Albuterol Sulfate [Albuterol 2 puff IH Q6HR PRN #0 12/13/14 09/15/16 Inhaler] Aspirin Enteric Coated [Aspirin EC] 81 mg PO DAILY #0 12/13/14 09/15/16 Ferrous Sulfate 325 mg PO TID #0 12/13/14 09/15/16 Folic Acid 1 mg PO DAILY #0 12/13/14 09/15/16 Nitroglycerin 0.4 mg SL AD PRN #0 12/13/14 09/15/16 Omeprazole [PriLOSEC] 20 mg PO BID #0 12/13/14 09/15/16 Thiamine (B-1) [Vitamin B-1] 100 mg PO DAILY #0 12/13/14 09/15/16 Lisinopril [Zestril] 10 mg PO DAILY 01/17/15 09/15/16 Metoprolol XL (24 HR) Succ [Toprol 25 mg PO DAILY 01/17/15 09/15/16 XL] Multivitamin/Iron/Folic Acid 1 each PO DAILY 01/17/15 09/15/16 [Centrum Complete Multivit Tab] Cetirizine HCl [All Day Allergy] 10 mg PO DAILY PRN 09/15/16 09/15/16 Fluticasone Propionate [Flovent 1 puff IH BID PRN 09/15/16 09/15/16 Hfa] Ipratropium/Albuterol Sulfate 1 puff IH QID PRN 09/15/16 09/15/16 [Combivent Respimat Inhal [place]] Sennosides/Docusate Sodium 1 each PO DAILY PRN 09/15/16 09/15/16 [Senna-S Tablet] Simvastatin [Zocor] 10 mg PO HS 09/15/16 09/15/16 Amlodipine Besylate 10 mg PO DAILY 09/16/16 09/16/16 Magnesium Oxide [Mgo] 400 mg PO DAILY 09/16/16 09/16/16 Previous Rx's Medication Instructions Recorded Albuterol Sulfate [Albuterol 1 puff IH Q4H PRN #3 inhaler 09/19/16 Inhaler] GuaiFENesin ER [Mucinex] 600 mg PO BID 10 Days 09/19/16 Levofloxacin [Levaquin] 750 mg PO DAILY #5 tablet 09/19/16 predniSONE [PredniSONE] See Taper PO DAILY #65 tablet 09/19/16 Allergies Allergy/AdvReac Type Severity Reaction Status Date / Time No Known Allergies Allergy Verified 09/15/16 17:19 All systems ED: reviewed and negative except as stated. Constitutional: Denies: fever Cardiovascular: Reports: dyspnea on exertion. Denies: chest pain Respiratory: Reports: cough, dyspnea. Denies: hemoptysis Gastrointestinal: Denies: abdominal pain, nausea, vomiting Musculoskeletal: Denies: back pain, neck pain Integumentary: Denies: rash Neurological: Denies: headache, weakness, numbness Past Medical History - Past Medical History Medical history: Reports: CHF, COPD, hyperlipidemia, hypertension, myocardial infarction Surgical history: Reports: appendectomy, coronary bypass (CABG) Psychiatric history: Reports: anxiety - Social History Smoking Status: Former smoker Smokeless Tobacco Status: No Alcohol use: Reports: none Drug use: Reports: none Physical Exam General: Appears older than stated age, she is talkative and appropriate, alert and oriented Cardiovascular: Borderline tachycardia but regular S1, S2. No murmurs, rubs or gallops. No JVD Respiratory: Expiratory breath sounds bilaterally, diminished air movement bilaterally. Abdomen: Soft, nontender. No guarding, rebound or rigidity. Eyes: Conjunctiva clear HENT: Normocephalic, no signs of head injury. No oral mucosal lesions. Moist mucous membranes Neuro: Alert and oriented 3, no motor or sensory deficits Musculoskeletal: No joint tenderness or swelling. No lower extremity swelling or edema, no calf pain, no asymmetry. Skin: No lesions. No diaphoresis. Normal turgor. Normal color Psych: Appropriate - General General appearance: alert, in no apparent distress Course Course Narrative: Presents with progressive dyspnea. Patient recently admitted for cough. Chest x-ray shows ongoing right lower lobe pneumonia. She is developed white count without shift. She is afebrile. Patient states she does not feel comfortable going home and I feel that admission is important. She did have one blood pressure that was hypotensive so the septic workup was ordered. Clinically patient does not appear septic or acutely ill. She has a chronic anemia which is unchanged. Mild elevated potassium which might be homolysis. No EKG changes. Plan to admit for ongoing pneumonia and dyspnea. Vital Signs Temperature 98.6 F 09/22/16 23:36 Pulse Rate 109 09/22/16 23:36 Respiratory Rate 22 09/22/16 23:36 Blood Pressure 97/79 09/22/16 23:36 O2 Sat by Pulse Oximetry 98 09/22/16 23:36 Temperature 98.6 F 09/22/16 23:36 Pulse Rate 93 09/23/16 01:35 Respiratory Rate 24 09/23/16 01:35 Blood Pressure 90/53 09/23/16 01:35 O2 Sat by Pulse Oximetry 100 09/23/16 01:35 Oxygen Delivery Oxygen Delivery Nasal Cannula Shortness of Breath/Dyspnea - Lab Data Result diagrams: 09/22/16 23:42 09/22/16 23:42 Lab Results 09/22/16 09/22/16 09/22/16 Range/Units 23:42 23:42 23:42 WBC 12.9 H (4.3-11.1) K/mcL RBC 3.36 L (3.82-4.97) M/mcL Hgb 9.1 L (11.5-15.4) g/dL Hct 31.3 L (35.3-44.9) % MCV 93.2 (83.0-100.0) fL MCH 27.1 L (28.0-33.3) pg MCHC 29.1 L (31.6-35.5) g/dL RDW 14.6 H (11.5-14.5) % Plt Count 275 (140-400) K/mcL MPV 11.2 (9.4-12.4) fL Immature Gran % 4.1 H (0-4) % Seg Neutrophils % 63.8 % Lymphocytes % 18.1 % Monocytes % 11.0 % Eosinophils % 2.7 % Basophils % 0.3 % Neutrophils # 8.2 (1.6-8.9) K/mcL Lymphocytes # 2.3 (0.6-4.6) K/mcL Monocytes # 1.4 H (0.0-1.3) K/mcL Eosinophils # 0.4 (0.0-0.6) K/mcL Basophils # 0.0 (0.0-0.2) K/mcL Immature Plt Fraction 9.4 H (1.1-6.1) % Sodium 142 (136-145) mEq/L Potassium 5.4 H (3.5-4.5) mEq/L Chloride 96 L (98-109) mEq/L Carbon Dioxide 36 H (19-29) mEq/L BUN 26 H (7-20) mg/dL Creatinine 0.86 (0.57-1.11) mg/dL Est GFR ( Amer) > 60 (> 60) Est GFR (Non-Af Amer) > 60 (> 60) BUN/Creatinine Ratio 30 H (6-26) Glucose 98 (70-99) mg/dL Calculated Osmolality 299 (280-300) Lactic Acid (0.5-2.2) mmol/L Calcium 9.1 (8.6-10.8) mg/dL Troponin I 0.00 (0-0.03) ng/mL B-Natriuretic Peptide (0-100) pg/mL 09/22/16 09/23/16 Range/Units 23:42 01:08 WBC (4.3-11.1) K/mcL RBC (3.82-4.97) M/mcL Hgb (11.5-15.4) g/dL Hct (35.3-44.9) % MCV (83.0-100.0) fL MCH (28.0-33.3) pg MCHC (31.6-35.5) g/dL RDW (11.5-14.5) % Plt Count (140-400) K/mcL MPV (9.4-12.4) fL Immature Gran % (0-4) % Seg Neutrophils % % Lymphocytes % % Monocytes % % Eosinophils % % Basophils % % Neutrophils # (1.6-8.9) K/mcL Lymphocytes # (0.6-4.6) K/mcL Monocytes # (0.0-1.3) K/mcL Eosinophils # (0.0-0.6) K/mcL Basophils # (0.0-0.2) K/mcL Immature Plt Fraction (1.1-6.1) % Sodium (136-145) mEq/L Potassium (3.5-4.5) mEq/L Chloride (98-109) mEq/L Carbon Dioxide (19-29) mEq/L BUN (7-20) mg/dL Creatinine (0.57-1.11) mg/dL Est GFR ( Amer) (> 60) Est GFR (Non-Af Amer) (> 60) BUN/Creatinine Ratio (6-26) Glucose (70-99) mg/dL Calculated Osmolality (280-300) Lactic Acid 0.9 (0.5-2.2) mmol/L Calcium (8.6-10.8) mg/dL Troponin I (0-0.03) ng/mL B-Natriuretic Peptide 85 (0-100) pg/mL - EKG Data EKG results narrative: EKG shows a rate of 74 bpm without clearly defined P waves. There is some irregularity but not clear atrial fibrillation. No ST changes. No acute ischemic T-wave changes. Previous EKG on 09/18/16 shows a more regular rhythm with clearly defined P waves. Her EKG today may be limited due to artifact or might be a first-degree heart block or junctional rhythm.
[2016-09-23 00:23] LABS: BUN/Creatinine Ratio 30 (6-26); Blood Urea Nitrogen 26 mg/dL (7-20); Calcium 9.1 mg/dL (8.6-10.8); Carbon Dioxide 36 mEq/L (19-29); Chloride 96 mEq/L (98-109); Glucose 98 mg/dL (70-99); Osmolality,Calculated 299 (280-300); Potassium 5.4 mEq/L (3.5-4.5); Sodium 142 mEq/L (136-145); eGFR For African Americans > 60 (> 60); eGFR For Non-African Americans > 60 (> 60)
[2016-09-23] MEDS: 0.9 % Sodium Chloride 1,000 ML IVC SCH ×2 (01:00→01:48)
[2016-09-23] MEDS ORDERED: Azithromycin 500 MG in D5% in Water 250 ML IVPB ONE (01:47)
[2016-09-23] MEDS ORDERED: Ondansetron 4 MG/2 ML VIAL IVP PRN (05:21)
[2016-09-23] MEDS ORDERED: Naloxone 0.4 MG/ML INJ IVP PRN (05:21)
[2016-09-23] MEDS ORDERED: Acetaminophen 325 MG TABLET PO PRN (05:21)
[2016-09-23] MEDS ORDERED: *HR* Morphine 2 MG/ML SYRINGE IVP PRN (05:21)
[2016-09-23] MEDS ORDERED: Loratadine 10 MG TABLET PO PRN (05:25)
--- NOTE | 2016-09-23 05:40 | Internal Med History&Physical ---
Date of Encounter: 09/23/16 Time of Encounter: 04:40 Assessment and Plan (1) Chest pain Current visit: Yes Status: Acute Atypical chest pain, with h/o CABG; continue ASA, beta-braulio and statin. Telemetry monitoring, serial Troponin trending. PRN Nitroglycerine and Morphine for pain control. Nuclear stress test in am. Patient will need outpatient Cardiology f/up. Chest XRay shows right lower lobe infiltrates, which is from her recent admission; she did complete 5-day oral antibiotic course with Levaquin in addition to IV antibiotics during her previous hospitalization, and her blood cultures remained negative; will hold off on further antibiotics at this time. Qualifiers: Chest pain type: precordial pain Qualified Code(s): R07.2 - Precordial pain (2) Abdominal pain Current visit: Yes Status: Acute Did not mention this complaint as she is concerned about her chest pain, but noted to have tenderness on exam, with h/o- nausea/vomiting/diarrhea.; will obtain CT abdomen/pelvis with PO contrast; supportive care; PRN Zofran; Qualifiers: Abdominal location: left lower quadrant Qualified Code(s): R10.32 - Left lower quadrant pain (3) CAD (coronary artery disease) Current visit: Yes Status: Chronic Qualifiers: Coronary Disease-Associated Artery/Lesion type: bypass graft [place] vs. transplanted heart: [place] heart Associated angina: without angina Qualified Code(s): I25.810 - Atherosclerosis of coronary artery bypass graft(s) without angina pectoris (4) HTN (hypertension) Current visit: Yes Status: Chronic Qualifiers: Hypertension type: essential hypertension Qualified Code(s): I10 - Essential (primary) hypertension (5) COPD (chronic obstructive pulmonary disease) Current visit: Yes Status: Chronic continue PRN bronchodilators and supplemental O2; Qualifiers: COPD type: unspecified COPD Qualified Code(s): J44.9 - Chronic obstructive pulmonary disease, unspecified Internal Medicine - H&P: HPI Chief complaint: Chest pain, dyspnea Admitted From: Emergency Dept Plans for Post Hospital Care: Home History of present illness: Ms. Vaughn is a 56 year old female with h/o- COPD, CAD/CABG, presents with c/o- retrosternal chest pain and dyspnea. Patient was discharged from our hospital 4 days ago, after being treated for acute exacerbation of COPD and right lower lobe Pneumonia, on a 5-day course of Levaquin and tapering steroids. She repors completing her antibiotic course today, and initially felt better. She was watching TV this evening, when she developed a sudden onset of sharp 10/10 retrosternal chest pain, that was intermittent, lasting 6-10 minutes, each time , and she got scared as this pain is similar to her chest pain when she had [place] and CABG 15years ago. Her son called EMS. She reports associated shortness of breath and lingering cough from her recent Pneumonia. No fever/chills, palpitations, dizziness, diaphoresis or syncope. Past Med Surg Social Fam HX - Past Medical History Medical history: CHF, COPD, hyperlipidemia, hypertension, myocardial infarction Psychiatric history: anxiety - Past Surgical History Surgical History: appendectomy, coronary bypass (CABG) - Social History Smoking Status: Former smoker (quit smoking 5 months ago, has 40 pack years smoking history) Smokeless Tobacco Status: No Alcohol use: none Drug use: none Current living situation: Home, With Family Activity Level: Independent ambulation Recent Out of Country Travel Within the Last 8 Weeks: No - Family History Father Living Status: Hx Family Cardiac Disorders: Yes (Father of [place]) Internal Medicine - H&P: Meds Aspirin Enteric Coated [Aspirin EC] 81 mg PO DAILY #0 12/13/14 [History] Ferrous Sulfate 325 mg PO DAILY #0 12/13/14 [History] Folic Acid 1 mg PO DAILY #0 12/13/14 [History] Nitroglycerin 0.4 mg SL Q5M PRN #0 12/13/14 [History] Omeprazole [PriLOSEC] 20 mg PO BID #0 12/13/14 [History] Thiamine (B-1) [Vitamin B-1] 100 mg PO DAILY #0 12/13/14 [History] Lisinopril [Zestril] 10 mg PO DAILY 01/17/15 [History] Metoprolol XL (24 HR) Succ [Toprol XL] 25 mg PO DAILY 01/17/15 [History] Multivitamin/Iron/Folic Acid [Centrum Complete Multivit Tab] 1 each PO DAILY [History] Cetirizine HCl [All Day Allergy] 10 mg PO DAILY PRN 09/15/16 [History] Fluticasone Propionate [Flovent Hfa] 1 puff IH BID PRN 09/15/16 [History] Ipratropium/Albuterol Sulfate [Combivent Respimat Inhal [place]] 1 puff IH QID PRN 09/15/16 [History] Sennosides/Docusate Sodium [Senna-S Tablet] 1 each PO BID PRN 09/15/16 [History] Simvastatin [Zocor] 10 mg PO HS 09/15/16 [History] Amlodipine Besylate 10 mg PO DAILY 09/16/16 [History] Magnesium Oxide [Mgo] 400 mg PO DAILY 09/16/16 [History] Albuterol Sulfate [Albuterol Inhaler] 1 puff IH Q4H PRN #3 inhaler 09/19/16 [Rx] GuaiFENesin ER [Mucinex] 600 mg PO BID 10 Days 09/19/16 [Rx] Levofloxacin [Levaquin] 750 mg PO DAILY #5 tablet 09/19/16 [Rx] Allergies No Known Allergies Allergy (Verified 09/15/16 17:19) All Systems PM: A 10-system review of systems was performed and is negative for pertinent findings except as documented above in the HPI. - Constitutional Constitutional: no chills, no fever(s), no night sweats - EENT Eyes: no change in vision, no discharge, no pain, no photophobia Ears: no ear discharge, no ear pain, no tinnitus Nose, mouth and throat: no dysphagia, no nasal discharge, no neck pain, no sore throat - Cardiovascular Cardiovascular ROS IM: chest pain, dyspnea, dyspnea on exertion - Respiratory Respiratory: cough, no dyspnea, no wheezing, no excessive phlegm production - Gastrointestinal Gastrointestinal: abdominal pain, loose stools, nausea, vomiting - Genitourinary Genitourinary: no change in urinary stream, no dysuria, no flank pain, no hematuria - Musculoskeletal Musculoskeletal ROS IM: no numbness, no tingling - Integumentary Integumentary IM: no rash, no unusual bruising - Neurological Neurological ROS: no confusion, no convulsions, no focal weakness, no numbness, no tingling, no tremor(s) - Hematologic/Lymphatic Hematologic/Lymphatic: no easy bruising - Constitutional Vitals: Temp Pulse Resp BP Pulse Ox 98.3 F 105 22 98/54 94 09/23/16 02:37 09/23/16 02:37 09/23/16 02:37 09/23/16 02:37 09/23/16 02:37 General appearance: Present: mild distress, A&O X 3 - Respiratory Respiratory exam: Present: rales (crackles at right base). Absent: accessory muscle use, rhonchi, wheezes - Cardiovascular Cardiovascular exam: Present: RRR, +S1, +S2. Absent: diastolic murmur, gallop, rubs, systolic murmur - GI/Abdominal GI/Abdominal exam: Present: normal bowel sounds, soft (diffuse tenderness, most prominent in LLQ), no peritoneal signs. Absent: distended, tenderness - Extremities Exam Extremities exam: Present: full ROM, warm, radial pulses palpable and symetrical. Absent: calf tenderness, cyanotic, pedal edema - Neurological Exam Neurological exam: Present: CN II-XII intact, oriented X3, no focal deficits. Absent: pronater drift, facial droop, speech deficit - Skin Skin exam: Present: dry, intact Internal Med - H&P Results - Labs CBC & Chem 7: 09/23/16 04:03 09/23/16 04:03 - EKG Data -: EKG Interpreted by Myself EKG shows normal: sinus rhythm Rate: normal
[2016-09-23 05:48] LABS: BUN/Creatinine Ratio 30 (6-26); Blood Urea Nitrogen 24 mg/dL (7-20); Calcium 8.4 mg/dL (8.6-10.8); Carbon Dioxide 30 mEq/L (19-29); Chloride 101 mEq/L (98-109); Glucose 98 mg/dL (70-99); Osmolality,Calculated 292 (280-300); Potassium 4.9 mEq/L (3.5-4.5); Sodium 139 mEq/L (136-145); eGFR For African Americans > 60 (> 60); eGFR For Non-African Americans > 60 (> 60)
[2016-09-23 05:52] LABS: Basophils % 0.1 %; Eosinophils # 0.3 K/mcL (0.0-0.6); Eosinophils % 3.6 %; Hematocrit 24.6 % (35.3-44.9); Immature Granulocytes % 3.6 % (0-4); Lymphocytes # 1.9 K/mcL (0.6-4.6); Lymphocytes % 20.8 %; Mean Corpuscular HGB Conc 30.5 g/dL (31.6-35.5); Mean Corpuscular Hemoglobin 28.3 pg (28.0-33.3); Mean Corpuscular Volume 92.8 fL (83.0-100.0); Monocytes % 10.6 %; Neutrophils # 5.6 K/mcL (1.6-8.9); Platelet Count 187 K/mcL (140-400); Red Blood Count 2.65 M/mcL (3.82-4.97); Red Cell Distribution Width 14.7 % (11.5-14.5); Segmented Neutrophils % 61.3 %
[2016-09-23 05:56] LABS: Hemoglobin 7.5 g/dL (11.5-15.4)
[2016-09-23] MEDS ORDERED: *HR* Enoxaparin 40 MG/0.4 ML SYRINGE SQ ONE (08:05)
[2016-09-23] MEDS: Folic Acid 1 MG TABLET PO SCH (08:09)
[2016-09-23] MEDS: Aspirin Enteric Coated 81 MG Tablet PO SCH (08:09)
[2016-09-23] MEDS: Magnesium Oxide 400 MG TABLET PO SCH (08:09)
[2016-09-23] MEDS ORDERED: Regadenoson 0.4 MG/5 ML SYRINGE IVP ONE (08:09)
[2016-09-23] MEDS: amLODIPine 5 MG TABLET PO SCH (08:10)
[2016-09-23] MEDS: Metoprolol XL (24 HR) Succ 25 MG TAB.ER.24H PO SCH (08:10)
[2016-09-23] MEDS: Thiamine (B-1) 100 MG TABLET PO SCH (08:10)
[2016-09-23] MEDS: Multivit/Ca/Min/Fe/FA 1 TAB TABLET PO SCH (08:10)
[2016-09-23] MEDS ORDERED: Beclomethasone 80mcg MDI IH PRN (10:00)
--- NOTE | 2016-09-23 10:57 | Nuclear Medicine Stress Report ---
Regadenoson Nuclear Stress Name: Amy Vaughn Date of Study: 09/23/2016 Date: 1960 Ht: 57.0 in Medical Record#: [id number] Age: 56 Wt: 98.0 lb Gender: Female Order #: [id number] Location: [facility] OP Room: [facility] Supervising Provider: Senia Hernandez CNP Reading Physician: Dunia Gomez DO Ordering Physician: Blane Marroquin MD Primary Care Physician: None Stress Technologist: [place] MAIL CLERK, CCT Bilingual Interpreter: Bentley Moe Indications: Chest Pain Impression: Perfusion imaging was negative for ischemia or infarct. Pharmacologic ECG was negative for ischemia at the level of heart rate achieved. Patient had 7/10 chest pain prior to and during testing without change. Gated EF >70%. Recommend clinical correlation. History: Hypercholesteremia History of Smoking Stress Test Summary: Stress Test Type: Pharmacologic Regadenoson 0.4mg/5ml given IV Baseline Information: Initial Heart Rate: 97 Blood Pressure: 96/52 Stress Information: Test Terminated Due to (primary): As per protocol Maximum Blood Pressure: 90/54 Maximum Heart Rate: 108 Percent Maximum Heart Rate Achieved: 67 Double Product: 9720 METS Reached: 10 Symptoms: Chest pain, Shortness of breath Nuclear Summary: SPECT myocardial perfusion imaging using Tc99m Sestamibi given intravenously was performed at rest and following cardiac stress testing. The resting images were obtained following initial dose of 10.5 mCi. Following stress an additional dose of 31.3 mCi was given at peak exercise or 30 seconds post regadenoson infusion. Medication Given: Time Medication Dose Units Route Findings: Stress Note * Resting ECG demonstrated normal sinus rhythm/sinus tachycardia (HR 100's). * Pharmacologic stress ECG is negative for ischemia at level of heart rate achieved. * No arrhythmias were noted during stress. * Patient had 7/10 chest pain prior to start of study. Chest pain did not change during the study. Hemodynamic responses * Normal hemodynamic responses to pharmacologic stress. Study Quality * Study quality was fair. Gated EF > 70% * Gated EF > 70%. Left Ventricle * The left ventricle is not dilated. TID * No evidence of transient ischemic dilatation. Lung Uptake * There is no evidence of increase lung uptake. NORMALS * Normal wall motion. PERFUSION * There is a small sized, mild intensity fixed perfusion defect involving the distal anterior wall and apex. Wall motion is normal. Findings represent artifact. * Other segments demonstrate normal rest and stress perfusion. Updated by Dunia Gomez on 09/23/2016 10:51:08 AM electronically signed on 09/23/2016 10:52:41 AM with status of Final
[2016-09-23 11:07] LABS: Hematocrit 27.6 % (35.3-44.9); Hemoglobin 8.2 g/dL (11.5-15.4); Immature Reticulocyte % 21.3 % (11.0-38.0); Retculocyte # 0.08 M/mcL (0.05-0.10); Reticulocyte % 2.7 % (1.6-2.8)
[2016-09-23 11:34] LABS: % Iron Saturation 9 % (15-50); Iron 30 mcg/dL (50-170); Lactate Dehydrogenase 176 Units/L (159-327); Transferrin 246 mg/dL (180-382)
[2016-09-23 12:13] LABS: Folate 16.3 ng/mL (7.0-31.4)
--- NOTE | 2016-09-23 12:13 | Internal Med Progress Note ---
Date of Encounter: 09/23/16 Time of Encounter: 09:00 - Assessment and plan (1) Chest pain Current Visit: Yes Status: Acute Assessment and plan: Negative troponins, negative stress test for ischemia. The patient has tenderness upon palpation of the anterior thorax. She also has tenderness upon palpation of her interphalangeal and metacarpophalangeal joints. Multiple points of tenderness in lower back as well. I have requested and both ESR and CRP, the patient denies history of rheumatoid arthritis. We will follow clinically. She is also complaining of cough, she was discharged recently due to pneumonia. She did not complete the course of antibiotics recommended for her pneumonia. There is no leukocytosis, no fever, no evidence of worsening pneumonia in the chest x-ray, I will go ahead and give her broad-spectrum antibiotics and follow cultures. We will de-escalate according to clinical response. For her diffuse pain, could be a case of polymyalgia rheumatica, follow ESR and CRP, might not be unreasonable to start her on steroids. Qualifiers: Chest pain type: precordial pain Qualified Code(s): R07.2 - Precordial pain (2) Abdominal pain Current Visit: Yes Status: Acute Assessment and plan: The patient is complaining of right upper quadrant pain, a CT scan of the abdomen was done, essentially unremarkable, however there was evidence of gallstones. Will obtain a right upper quadrant ultrasound to look for any sonographic findings consistent with cholecystitis. Qualifiers: Abdominal location: right upper quadrant Qualified Code(s): R10.11 - Right upper quadrant pain (3) CAD (coronary artery disease) Current Visit: Yes Status: Chronic Qualifiers: Coronary Disease-Associated Artery/Lesion type: bypass graft [place] vs. transplanted heart: [place] heart Associated angina: without angina Qualified Code(s): I25.810 - Atherosclerosis of coronary artery bypass graft(s) without angina pectoris (4) Anemia Current Visit: No Status: Chronic Assessment and plan: Iron panel requested, follow results. B12 and folate requested as well. The patient was already on iron pills. Her initial hemoglobin was 9.1. Then upon repeat hemoglobin was 7.5. No explanation for drop in hemoglobin, I ordered a new hemoglobin which was 8.2, which was close to her baseline or at least when she was discharged a few days ago which was 8.5. We will continue monitoring her hemoglobin closely. Qualifiers: Anemia type: iron deficiency Qualified Code(s): D50.8 - Other iron deficiency anemias (5) Community acquired pneumonia Current Visit: No Status: Acute Assessment and plan: Patient recently discharged with diagnoses of pneumonia, initially on Rocephin and azithromycin. She did not finish the antibiotic course, she was discharged on by mouth Levaquin. We will broach than the antibiotic coverage, will treat as a failure of treatment of her pneumonia. Follow cultures, might de-escalate based on clinical response and culture results. (6) Abdominal pain Current Visit: Yes Status: Acute Assessment and plan: see above Qualifiers: Abdominal location: right upper quadrant Qualified Code(s): R10.11 - Right upper quadrant pain (7) DVT prophylaxis Current Visit: No Status: Acute Assessment and plan: lovenox - Subjective Interval history: The patient was seen and examined in rounds. She is states that he was complaining of severe chest pain, the pain was worse upon palpation of the ribs. She still has persistent cough, she was recently discharged after she had pneumonia. No fever. She is also complaining of right upper quadrant abdominal pain. - Constitutional Vitals: Temp Pulse Resp BP Pulse Ox 97.7 F 84 18 86/54 98 09/23/16 11:42 09/23/16 11:42 09/23/16 11:42 09/23/16 11:42 09/23/16 11:42 General appearance: Present: mild distress, A&O X 3 - Head Head exam: Present: atraumatic, normocephalic - Eye Eye exam: Present: PERRL, conjuntiva pink, sclera anicteric Pupils: Present: PERRL - Neck Neck exam general surgery: Present: supple, trachea midline. Absent: lymphadenopathy - Respiratory Respiratory exam: Present: CTAB. Absent: accessory muscle use, rales, rhonchi, wheezes - Cardiovascular Cardiovascular exam: Present: RRR, +S1, +S2. Absent: diastolic murmur, gallop, rubs, systolic murmur Additional comments: Pain upon palpation of ribs. - GI/Abdominal GI/Abdominal exam: Present: normal bowel sounds, soft. Absent: distended, tenderness Additional comments: Right upper quadrant tenderness. - Extremities Exam Extremities exam: Present: warm, radial pulses palpable and symetrical. Absent : calf tenderness, cyanotic, pedal edema - Neurological Exam Neurological exam: Present: CN II-XII intact, oriented X3, no focal deficits. Absent: pronater drift, facial droop, speech deficit - Skin Skin exam: Present: dry, intact Internal Medicine: Result - Labs CBC & Chem 7: 09/23/16 10:59 09/23/16 04:03 Labs: Short CBC 09/23/16 09/23/16 Range/Units 04:03 10:59 WBC 9.1 (4.3-11.1) K/mcL Hgb 7.5 L D 8.2 L (11.5-15.4) g/dL Hct 24.6 L 27.6 L (35.3-44.9) % Plt Count 187 (140-400) K/mcL Neutrophils # 5.6 (1.6-8.9) K/mcL BMP 09/23/16 04:03 Sodium 139 Potassium 4.9 H Chloride 101 Carbon Dioxide 30 H BUN 24 H Creatinine 0.80 Glucose 98 Calcium 8.4 L Cardiac Enzymes 09/23/16 Range/Units 04:03 Troponin I 0.00 (0-0.03) ng/mL - Impressions Impressions Abdomen/Pelvis CT 09/23/16 09:30 IMPRESSION: No acute abnormality in the abdomen or pelvis. Cholelithiasis. Right lower lobe consolidation, atelectasis versus pneumonia. D/ / Mitch Kessler MD / Mitch Kessler MD Interpreting Provider: Mitch Kessler MD Consult Discharge Plan - Plan Referrals: NO,PCP [Primary Care Provider] -
[2016-09-23 12:31] LABS: C-Reactive Protein 52 mg/L (Less than 5)
[2016-09-23] MEDS: Vancomycin 750 MG in D5% in Water 250 ML IVPB SCH (13:26)
[2016-09-23] MEDS: Cefepime HCl 1,000 MG in D5% in Water (Mini-Bag+) 100 ML IVPB SCH (13:26)
[2016-09-23] MEDS: Ipratropium/Albuterol Neb 3 ML IH PRN ×2 (14:05→20:56)
--- NOTE | 2016-09-23 17:01 | Electrocardiograph Report ---
[place] [id number] Test Date: 2016-09-21 Pat Name: Amy Vaughn Department: 105 Room: 2A12 Gender: F Insurance Follow Up Specialist: VIV : 1960 Requested By: Evan iMlton Order Number: [id number] Reading MD: Micheal Suarez Measurements Intervals [place] Rate: 74 P: 65 [place]: 331 QRS: 15 QRSD: 77 T: 32 QT: 385 QTc: 412 Interpretive Statements SINUS RHYTHM WITH MARKED SINUS ARRHYTHMIA WITH FIRST DEGREE AV BLOCK NONSPECIFIC T-WAVE ABNORMALITY Electronically Signed On 09-23-2016 16:59:28 EDT by Micheal Suarez
[2016-09-23] MEDS: *HR* OxyCODONE Immed Rel 5 MG TABLET PO PRN (17:24)
[2016-09-23] MEDS: Beclomethasone 80mcg MDI IH SCH (20:56)
[2016-09-24] MEDS: *HR* OxyCODONE Immed Rel 5 MG TABLET PO PRN ×3 (00:48→18:58)
[2016-09-24] MEDS: Vancomycin 750 MG in D5% in Water 250 ML IVPB SCH ×2 (00:49→12:39)
[2016-09-24] MEDS: Cefepime HCl 1,000 MG in D5% in Water (Mini-Bag+) 100 ML IVPB SCH ×3 (00:50→23:38)
[2016-09-24] MEDS: Ipratropium/Albuterol Neb 3 ML IH PRN ×4 (02:30→21:26)
[2016-09-24 05:44] LABS: Basophils % 0.3 %; Eosinophils # 0.6 K/mcL (0.0-0.6); Eosinophils % 5.9 %; Hematocrit 27.1 % (35.3-44.9); Hemoglobin 7.9 g/dL (11.5-15.4); Immature Granulocytes % 2.4 % (0-4); Lymphocytes # 1.5 K/mcL (0.6-4.6); Lymphocytes % 15.6 %; Mean Corpuscular HGB Conc 29.2 g/dL (31.6-35.5); Mean Corpuscular Volume 92.5 fL (83.0-100.0); Mean Platelet Volume 11.7 fL (9.4-12.4); Monocytes # 1.2 K/mcL (0.0-1.3); Monocytes % 12.6 %; Neutrophils # 5.9 K/mcL (1.6-8.9); Platelet Count 189 K/mcL (140-400); Red Blood Count 2.93 M/mcL (3.82-4.97); Red Cell Distribution Width 14.6 % (11.5-14.5); Segmented Neutrophils % 63.2 %
[2016-09-24] MEDS: *HR* Enoxaparin 40 MG/0.4 ML SYRINGE SQ SCH (05:47)
[2016-09-24 06:01] LABS: BUN/Creatinine Ratio 20 (6-26); Blood Urea Nitrogen 16 mg/dL (7-20); Calcium 8.9 mg/dL (8.6-10.8); Carbon Dioxide 33 mEq/L (19-29); Chloride 95 mEq/L (98-109); Glucose 109 mg/dL (70-99); Osmolality,Calculated 280 (280-300); Potassium 4.7 mEq/L (3.5-4.5); Sodium 134 mEq/L (136-145); eGFR For African Americans > 60 (> 60); eGFR For Non-African Americans > 60 (> 60)
[2016-09-24] MEDS: Beclomethasone 80mcg MDI IH SCH ×2 (07:53→21:27)
[2016-09-24] MEDS: amLODIPine 5 MG TABLET PO SCH (09:39)
[2016-09-24] MEDS: Metoprolol XL (24 HR) Succ 25 MG TAB.ER.24H PO SCH (09:39)
[2016-09-24] MEDS: Aspirin Enteric Coated 81 MG Tablet PO SCH (09:58)
[2016-09-24] MEDS: Artificial Tears SOLN 15 ML BOTTLE BOTH EYES SCH ×4 (09:58→21:01)
[2016-09-24] MEDS: Folic Acid 1 MG TABLET PO SCH (09:58)
[2016-09-24] MEDS: Thiamine (B-1) 100 MG TABLET PO SCH (09:59)
[2016-09-24] MEDS: Magnesium Oxide 400 MG TABLET PO SCH (09:59)
[2016-09-24] MEDS: predniSONE 20 MG TABLET PO SCH (09:59)
[2016-09-24] MEDS: Multivit/Ca/Min/Fe/FA 1 TAB TABLET PO SCH (09:59)
--- NOTE | 2016-09-24 10:16 | Internal Med Progress Note ---
Date of Encounter: 09/24/16 Time of Encounter: 09:00 - Assessment and plan (1) Community acquired pneumonia Current Visit: No Status: Acute Assessment and plan: Failed outpatient therapy, likely secondary to noncompliance will continue broad spectrum abx and de-escalate as per culture results Guaifenesin prn cough (2) COPD (chronic obstructive pulmonary disease) Current Visit: Yes Status: Chronic Assessment and plan: given clinical exam findings will start PO prednisone bronchodilator support as needed monitor O2 saturation O2 sat goal: 88-92% O2 supplementation as needed Qualifiers: COPD type: unspecified COPD Qualified Code(s): J44.9 - Chronic obstructive pulmonary disease, unspecified (3) Anemia Current Visit: No Status: Chronic Assessment and plan: Iron deficiency anemia will continue iron supplementation will obtain occult stool to rule any GI causes of anemia H&H low but acceptable no acute bleeding reported at this time Will continue to closely monitor and transfer as needed Qualifiers: Anemia type: iron deficiency Qualified Code(s): D50.8 - Other iron deficiency anemias (4) Chest pain Current Visit: Yes Status: Acute Assessment and plan: Cardiac work up negative for ischemia Diffuse tenderness persists and given elevated ESR and CRP and clinically presentation of her pain sites (enderness upon palpation of her interphalangeal and metacarpophalangeal joints. Multiple points of tenderness in lower back as well) Will start PO steroids and patient will benefit from outpatient follow up with rheumatology Qualifiers: Chest pain type: precordial pain Qualified Code(s): R07.2 - Precordial pain (5) Generalized weakness Current Visit: No Status: Chronic Assessment and plan: plan as listed above PT eval (6) HTN (hypertension) Current Visit: Yes Status: Chronic Assessment and plan: Noted to be hypotensive this morning will hold BP meds at this time closely monitor BP and will readjust medications as needed Qualifiers: Hypertension type: essential hypertension Qualified Code(s): I10 - Essential (primary) hypertension (7) CAD (coronary artery disease) Current Visit: Yes Status: Chronic Assessment and plan: no signs of angina present at this time continue home medications Qualifiers: Coronary Disease-Associated Artery/Lesion type: bypass graft [place] vs. transplanted heart: [place] heart Associated angina: without angina Qualified Code(s): I25.810 - Atherosclerosis of coronary artery bypass graft(s) without angina pectoris (8) DVT prophylaxis Current Visit: No Status: Acute Assessment and plan: Lovenox SQ - Subjective Interval history: Patient seen and examined at bedside. Resting in bed. Reports of diffuse shoulder and back pain. Reports of having extensive smoking history (smoking 1ppd x 30+years, quit 5 months ago) and is on home oxygen. Reports of persistent cough but denies any chest pain at this time. - Constitutional Vitals: Temp Pulse Resp BP Pulse Ox 98.2 F 83 18 96/64 95 09/24/16 08:47 09/24/16 08:47 09/24/16 08:47 09/24/16 08:47 09/24/16 08:47 General appearance: Present: A&O X 3, no acute distress - Head Head exam: Present: atraumatic, normocephalic - Eye Eye exam: Present: normal appearance, conjuntiva pink, sclera anicteric - Respiratory Respiratory exam: Absent: chest wall tenderness Additional comments: bilateral expiratory wheezing - Cardiovascular Cardiovascular exam: Present: RRR, +S1, +S2. Absent: diastolic murmur, gallop, rubs, systolic murmur - GI/Abdominal GI/Abdominal exam: Present: normal bowel sounds, soft, no peritoneal signs. Absent: distended, tenderness - Extremities Exam Extremities exam: Present: warm, radial pulses palpable and symetrical. Absent : calf tenderness, cyanotic, pedal edema - Neurological Exam Neurological exam: Present: alert, oriented X3 - Psychiatric Psychiatric exam: Present: normal affect, normal mood Internal Medicine: Result - Labs CBC & Chem 7: 09/24/16 05:20 09/24/16 05:20 Labs: Short CBC 09/23/16 09/24/16 Range/Units 10:59 05:20 WBC 9.3 (4.3-11.1) K/mcL Hgb 8.2 L 7.9 L (11.5-15.4) g/dL Hct 27.6 L 27.1 L (35.3-44.9) % Plt Count 189 (140-400) K/mcL Neutrophils # 5.9 (1.6-8.9) K/mcL BMP 09/24/16 05:20 Sodium 134 L Potassium 4.7 H Chloride 95 L Carbon Dioxide 33 H BUN 16 Creatinine 0.79 Glucose 109 H Calcium 8.9 - Impressions Impressions Abdomen/Pelvis CT 09/23/16 09:30 IMPRESSION: No acute abnormality in the abdomen or pelvis. Cholelithiasis. Right lower lobe consolidation, atelectasis versus pneumonia. D/ / Mitch Kessler MD / Mitch Kessler MD Interpreting Provider: Mitch Kessler MD Gallbladder Ultrasound 09/23/16 13:00 IMPRESSION: 1. Cholelithiasis without evidence of acute cholecystitis. 2. Hepatic cyst with thin septations. D/ / Markie Perkins MD / Markie Perkins MD Interpreting Provider: Markie Perkins MD Consult Discharge Plan - Plan Referrals: NO,PCP [Primary Care Provider] - (staff called [facility] and [facility]. due to patient no call no show, they will not accept the patient...)
[2016-09-24] MEDS ORDERED: GuaiFENesin Liq 200 MG/10 ML UDC PO PRN (10:20)
[2016-09-24 18:14] LABS: Adenovirus Not Detected (Not Detect); Bordetella Pertussis Not Detected (Not Detect); Chlamydophila pneumoniae Not Detected (Not Detect); Coronavirus 229E Not Detected (Not Detect); Coronavirus HKU1 Not Detected (Not Detect); Coronavirus NL63 Not Detected (Not Detect); Coronavirus OC43 Not Detected (Not Detect); Human Metapneumovirus Not Detected (Not Detect); Human Rhinovirus/Enterovirus Not Detected (Not Detect); Influenza A Subtype 2009 H1 Not Detected (Not Detect); Influenza A Untypeable Not Detected (Not Detect); Influenza B Not Detected (Not Detect); Mycoplasma pneumoniae Not Detected (Not Detect); Parainfluenza Virus 1 Not Detected (Not Detect); Parainfluenza Virus 2 Not Detected (Not Detect); Parainfluenza Virus 3 Not Detected (Not Detect); Parainfluenza Virus 4 Not Detected (Not Detect); Respiratory Syncytial Virus Not Detected (Not Detect)
[2016-09-25] MEDS: Vancomycin 750 MG in D5% in Water 250 ML IVPB SCH ×2 (00:26→12:14)
[2016-09-25] MEDS: *HR* OxyCODONE Immed Rel 5 MG TABLET PO PRN ×2 (01:01→22:05)
[2016-09-25] MEDS: Ipratropium/Albuterol Neb 3 ML IH PRN ×2 (02:07→08:24)
[2016-09-25 05:26] LABS: Basophils % 0.4 %; Eosinophils % 0.7 %; Hematocrit 25.8 % (35.3-44.9); Hemoglobin 7.8 g/dL (11.5-15.4); Immature Granulocytes % 4.6 % (0-4); Lymphocytes # 0.8 K/mcL (0.6-4.6); Lymphocytes % 15.6 %; Mean Corpuscular HGB Conc 30.2 g/dL (31.6-35.5); Mean Corpuscular Hemoglobin 27.7 pg (28.0-33.3); Mean Corpuscular Volume 91.5 fL (83.0-100.0); Mean Platelet Volume 11.7 fL (9.4-12.4); Monocytes # 0.7 K/mcL (0.0-1.3); Monocytes % 12.4 %; Neutrophils # 3.6 K/mcL (1.6-8.9); Platelet Count 145 K/mcL (140-400); Red Blood Count 2.82 M/mcL (3.82-4.97); Segmented Neutrophils % 66.3 %
[2016-09-25 05:38] LABS: BUN/Creatinine Ratio 22 (6-26); Blood Urea Nitrogen 15 mg/dL (7-20); Calcium 9.3 mg/dL (8.6-10.8); Carbon Dioxide 36 mEq/L (19-29); Chloride 95 mEq/L (98-109); Glucose 107 mg/dL (70-99); Magnesium 1.7 mg/dL (1.6-2.6); Osmolality,Calculated 285 (280-300); Phosphorous 2.8 mg/dL (2.3-4.7); Potassium 4.6 mEq/L (3.5-4.5); Sodium 137 mEq/L (136-145); eGFR For African Americans > 60 (> 60); eGFR For Non-African Americans > 60 (> 60)
[2016-09-25] MEDS: *HR* Enoxaparin 40 MG/0.4 ML SYRINGE SQ SCH (05:38)
[2016-09-25] MEDS ORDERED: Aminoglycoside Consult 1 EACH MC ONE (08:10)
[2016-09-25] MEDS: Beclomethasone 80mcg MDI IH SCH ×2 (08:23→20:15)
[2016-09-25] MEDS: Metoprolol XL (24 HR) Succ 25 MG TAB.ER.24H PO SCH (08:32)
[2016-09-25] MEDS: Magnesium Oxide 400 MG TABLET PO SCH (08:32)
[2016-09-25] MEDS: amLODIPine 5 MG TABLET PO SCH (08:32)
[2016-09-25] MEDS: Multivit/Ca/Min/Fe/FA 1 TAB TABLET PO SCH (08:32)
[2016-09-25] MEDS: Thiamine (B-1) 100 MG TABLET PO SCH (08:32)
[2016-09-25] MEDS: Folic Acid 1 MG TABLET PO SCH (08:33)
[2016-09-25] MEDS: Aspirin Enteric Coated 81 MG Tablet PO SCH (08:33)
[2016-09-25] MEDS: predniSONE 20 MG TABLET PO SCH (08:33)
[2016-09-25] MEDS: Artificial Tears SOLN 15 ML BOTTLE BOTH EYES SCH ×4 (08:34→21:19)
[2016-09-25] MEDS ORDERED: Metoprolol XL (24 HR) Succ 25 MG TAB.ER.24H PO SCH (09:28)
[2016-09-25] MEDS ORDERED: amLODIPine 5 MG TABLET PO SCH (09:28)
--- NOTE | 2016-09-25 09:29 | Internal Med Progress Note ---
Date of Encounter: 09/25/16 Time of Encounter: 09:25 - Assessment and plan (1) Community acquired pneumonia Current Visit: No Status: Acute Assessment and plan: Failed outpatient therapy, likely secondary to noncompliance will continue broad spectrum abx and de-escalate as per culture results Guaifenesin/Dextromorphan prn cough (2) COPD (chronic obstructive pulmonary disease) Current Visit: Yes Status: Chronic Assessment and plan: Pt clinically improving continue Prednisone for total of 7 days (Day 2/7) Bronchodilator support (LILIANA and PRN) monitor O2 saturation O2 sat goal: 88-92% O2 supplementation as needed Qualifiers: COPD type: unspecified COPD Qualified Code(s): J44.9 - Chronic obstructive pulmonary disease, unspecified (3) Anemia Current Visit: No Status: Chronic Assessment and plan: Iron deficiency anemia will continue iron supplementation Stool Occult Negative H&H low but acceptable no acute bleeding reported at this time Will continue to closely monitor and transfuse as needed Qualifiers: Anemia type: iron deficiency Qualified Code(s): D50.8 - Other iron deficiency anemias (4) Chest pain Current Visit: Yes Status: Acute Assessment and plan: Cardiac work up negative for ischemia Diffuse tenderness persists and given elevated ESR and CRP and clinically presentation of her pain sites (enderness upon palpation of her interphalangeal and metacarpophalangeal joints. Multiple points of tenderness in lower back as well): pt responding well to PO steroids. Will benefit from outpatient follow up with rheumatology Qualifiers: Chest pain type: precordial pain Qualified Code(s): R07.2 - Precordial pain (5) Generalized weakness Current Visit: No Status: Chronic Assessment and plan: plan as listed above PT eval recommended SNF placement Will obtain psychiatric social worker supervisor eval for placement (6) HTN (hypertension) Current Visit: Yes Status: Chronic Assessment and plan: BP within acceptable range will hold antihypertensive medications given current BP readings (hold antihypertensive meds if SBP<120 closely monitor BP and will readjust medications as needed Qualifiers: Hypertension type: essential hypertension Qualified Code(s): I10 - Essential (primary) hypertension (7) CAD (coronary artery disease) Current Visit: Yes Status: Chronic Assessment and plan: no signs of angina present at this time continue home medications Qualifiers: Coronary Disease-Associated Artery/Lesion type: bypass graft [place] vs. transplanted heart: [place] heart Associated angina: without angina Qualified Code(s): I25.810 - Atherosclerosis of coronary artery bypass graft(s) without angina pectoris (8) DVT prophylaxis Current Visit: No Status: Acute Assessment and plan: Lovenox SQ - Subjective Interval history: Patient seen and examined at bedside. Reports of improvement in pain but cough and difficulty with breathing persists. She is however noted to have decrease in O2 demand. Also reports of getting appropriate relief with the bronchodilator support, and requests to increase it's frequency. No overnight issues were reported. extensive smoking history (smoking 1ppd x 30+years, quit 5 months ago) and is on home oxygen. - Constitutional Vitals: Temp Pulse Resp BP Pulse Ox 97.7 F 85 16 106/63 99 09/25/16 06:44 09/25/16 06:44 09/25/16 08:24 09/25/16 06:44 09/25/16 08:24 General appearance: Present: A&O X 3, no acute distress - Head Head exam: Present: atraumatic, normocephalic - Eye Eye exam: Present: normal appearance, conjuntiva pink, sclera anicteric - Respiratory Respiratory exam: Present: decreased breath sounds. Absent: respiratory distress, wheezes - Cardiovascular Cardiovascular exam: Present: RRR, +S1, +S2. Absent: diastolic murmur, gallop, rubs, systolic murmur - GI/Abdominal GI/Abdominal exam: Present: normal bowel sounds, soft, no peritoneal signs. Absent: distended, tenderness - Extremities Exam Extremities exam: Present: warm, radial pulses palpable and symetrical. Absent : calf tenderness, cyanotic, pedal edema - Neurological Exam Neurological exam: Present: alert, oriented X3 - Psychiatric Psychiatric exam: Present: normal mood Internal Medicine: Result - Labs CBC & Chem 7: 09/25/16 04:29 09/25/16 04:29 Labs: Short CBC 09/25/16 Range/Units 04:29 WBC 5.4 (4.3-11.1) K/mcL Hgb 7.8 L (11.5-15.4) g/dL Hct 25.8 L (35.3-44.9) % Plt Count 145 (140-400) K/mcL Neutrophils # 3.6 (1.6-8.9) K/mcL BMP 09/25/16 04:29 Sodium 137 Potassium 4.6 H Chloride 95 L Carbon Dioxide 36 H BUN 15 Creatinine 0.69 Glucose 107 H Calcium 9.3 Consult Discharge Plan - Plan Referrals: NO,PCP [Primary Care Provider] - (staff called [facility] and [facility]. due to patient no call no show, they will not accept the patient... SW talked to pt. Son and patient has an appt. at [facility] in two months.)
[2016-09-25] MEDS: Ipratropium/Albuterol Neb 3 ML IH SCH ×4 (11:22→23:59)
[2016-09-25] MEDS: Cefepime HCl 1,000 MG in D5% in Water (Mini-Bag+) 100 ML IVPB SCH (12:09)
[2016-09-26] MEDS: Cefepime HCl 1,000 MG in D5% in Water (Mini-Bag+) 100 ML IVPB SCH (00:26)
[2016-09-26] MEDS: Vancomycin 750 MG in D5% in Water 250 ML IVPB SCH (00:29)
[2016-09-26] MEDS: Ipratropium/Albuterol Neb 3 ML IH SCH ×6 (04:10→23:27)
[2016-09-26] MEDS: *HR* OxyCODONE Immed Rel 5 MG TABLET PO PRN ×2 (04:14→22:03)
[2016-09-26 05:09] LABS: Basophils % 0.3 %; Eosinophils # 0.1 K/mcL (0.0-0.6); Eosinophils % 1.2 %; Hematocrit 26.7 % (35.3-44.9); Hemoglobin 7.8 g/dL (11.5-15.4); Immature Granulocytes % 3.3 % (0-4); Lymphocytes # 1.5 K/mcL (0.6-4.6); Lymphocytes % 20.1 %; Mean Corpuscular HGB Conc 29.2 g/dL (31.6-35.5); Mean Corpuscular Hemoglobin 26.6 pg (28.0-33.3); Mean Corpuscular Volume 91.1 fL (83.0-100.0); Mean Platelet Volume 11.9 fL (9.4-12.4); Monocytes # 0.9 K/mcL (0.0-1.3); Monocytes % 12.3 %; Neutrophils # 4.8 K/mcL (1.6-8.9); Platelet Count 177 K/mcL (140-400); Red Blood Count 2.93 M/mcL (3.82-4.97); Red Cell Distribution Width 14.1 % (11.5-14.5); Segmented Neutrophils % 62.8 %
[2016-09-26 05:18] LABS: BUN/Creatinine Ratio 30 (6-26); Blood Urea Nitrogen 20 mg/dL (7-20); Calcium 9.2 mg/dL (8.6-10.8); Carbon Dioxide 37 mEq/L (19-29); Chloride 96 mEq/L (98-109); Glucose 61 mg/dL (70-99); Magnesium 1.6 mg/dL (1.6-2.6); Osmolality,Calculated 289 (280-300); Phosphorous 1.8 mg/dL (2.3-4.7); Potassium 4.1 mEq/L (3.5-4.5); Sodium 139 mEq/L (136-145); eGFR For African Americans > 60 (> 60); eGFR For Non-African Americans > 60 (> 60)
[2016-09-26] MEDS: *HR* Enoxaparin 40 MG/0.4 ML SYRINGE SQ SCH (05:57)
[2016-09-26] MEDS: Beclomethasone 80mcg MDI IH SCH ×2 (07:38→20:20)
[2016-09-26] MEDS: Folic Acid 1 MG TABLET PO SCH (09:42)
[2016-09-26] MEDS: Magnesium Oxide 400 MG TABLET PO SCH (09:42)
[2016-09-26] MEDS: Aspirin Enteric Coated 81 MG Tablet PO SCH (09:42)
[2016-09-26] MEDS: levoFLOXacin 750 MG TABLET PO SCH (09:42)
[2016-09-26] MEDS: predniSONE 20 MG TABLET PO SCH (09:42)
[2016-09-26] MEDS: Thiamine (B-1) 100 MG TABLET PO SCH (09:43)
[2016-09-26] MEDS: Artificial Tears SOLN 15 ML BOTTLE BOTH EYES SCH ×4 (09:43→22:04)
[2016-09-26] MEDS: Multivit/Ca/Min/Fe/FA 1 TAB TABLET PO SCH (09:43)
--- NOTE | 2016-09-26 10:11 | Internal Med Progress Note ---
Date of Encounter: 09/26/16 Time of Encounter: 10:08 - Assessment and plan (1) Community acquired pneumonia Current Visit: No Status: Acute Assessment and plan: Failed outpatient therapy, likely secondary to noncompliance clinically improving Will switch to PO abx today to finish treatment for 7 days. Guaifenesin/Dextromorphan prn cough (2) COPD (chronic obstructive pulmonary disease) Current Visit: Yes Status: Chronic Assessment and plan: Pt clinically improving continue Prednisone for total of 7 days (Day 3/7) Bronchodilator support (LILIANA and PRN) monitor O2 saturation O2 sat goal: 88-92% O2 supplementation as needed Qualifiers: COPD type: unspecified COPD Qualified Code(s): J44.9 - Chronic obstructive pulmonary disease, unspecified (3) Anemia Current Visit: No Status: Chronic Assessment and plan: Iron deficiency anemia will continue iron supplementation Stool Occult Negative H&H low but acceptable no acute bleeding reported at this time Will continue to closely monitor and transfuse as needed Qualifiers: Anemia type: iron deficiency Qualified Code(s): D50.8 - Other iron deficiency anemias (4) Chest pain Current Visit: Yes Status: Acute Assessment and plan: Cardiac work up negative for ischemia Diffuse tenderness persists and given elevated ESR and CRP and clinically presentation of her pain sites (enderness upon palpation of her interphalangeal and metacarpophalangeal joints. Multiple points of tenderness in lower back as well): pt responding well to PO steroids. Will benefit from outpatient follow up with rheumatology Qualifiers: Chest pain type: precordial pain Qualified Code(s): R07.2 - Precordial pain (5) Generalized weakness Current Visit: No Status: Chronic Assessment and plan: plan as listed above PT eval recommended SNF placement funeral workers on board, awaiting SNF placement (6) HTN (hypertension) Current Visit: Yes Status: Chronic Assessment and plan: Noted to be hypotensive Will hold antihypertensive medications Decrease Lisinopril to 5mg PO qd, Amlodipine 5mg PO qd, and Metoprolol 12.5mg PO qd closely monitor BP and will readjust medications as needed Qualifiers: Hypertension type: essential hypertension Qualified Code(s): I10 - Essential (primary) hypertension (7) CAD (coronary artery disease) Current Visit: Yes Status: Chronic Assessment and plan: no signs of angina present at this time continue home medications Qualifiers: Coronary Disease-Associated Artery/Lesion type: bypass graft [place] vs. transplanted heart: [place] heart Associated angina: without angina Qualified Code(s): I25.810 - Atherosclerosis of coronary artery bypass graft(s) without angina pectoris (8) DVT prophylaxis Current Visit: No Status: Acute Assessment and plan: Lovenox SQ - Subjective Interval history: Patient seen and examined at bedside. Reports of feeling better compared to the previous day. Improvement in cough reported. No overnight issues reported. Pt eval recommended ENF placement funeral workers consultation on board for discharge Discharge pending ECF placement - Constitutional Vitals: Temp Pulse Resp BP Pulse Ox 98.5 F 69 16 90/57 92 09/26/16 08:49 09/26/16 08:49 09/26/16 08:49 09/26/16 08:49 09/26/16 09:53 General appearance: Present: cooperative, A&O X 3, no acute distress - Head Head exam: Present: atraumatic, normocephalic - Eye Eye exam: Present: normal appearance, conjuntiva pink, sclera anicteric - Respiratory Respiratory exam: Present: wheezes. Absent: respiratory distress - Cardiovascular Cardiovascular exam: Present: RRR, +S1, +S2. Absent: diastolic murmur, gallop, rubs, systolic murmur - GI/Abdominal GI/Abdominal exam: Present: normal bowel sounds, soft, no peritoneal signs. Absent: distended, tenderness - Extremities Exam Extremities exam: Present: warm, radial pulses palpable and symetrical. Absent : calf tenderness, cyanotic, pedal edema - Neurological Exam Neurological exam: Present: alert, oriented X3 - Psychiatric Psychiatric exam: Present: normal affect, normal mood Internal Medicine: Result - Labs CBC & Chem 7: 09/26/16 04:20 09/26/16 04:20 Labs: Short CBC 09/26/16 Range/Units 04:20 WBC 7.6 (4.3-11.1) K/mcL Hgb 7.8 L (11.5-15.4) g/dL Hct 26.7 L (35.3-44.9) % Plt Count 177 (140-400) K/mcL Neutrophils # 4.8 (1.6-8.9) K/mcL BMP 09/26/16 04:20 Sodium 139 Potassium 4.1 Chloride 96 L Carbon Dioxide 37 H BUN 20 Creatinine 0.66 Glucose 61 L Calcium 9.2 - VTE Documentation of Mechanical Device: Intermittent pneumatic compression device Consult Discharge Plan - Plan Referrals: NO,PCP [Primary Care Provider] - (staff called [facility] and [facility]. due to patient no call no show, they will not accept the patient... SW talked to pt. Son and patient has an appt. at [facility] in two months.)
[2016-09-26] MEDS ORDERED: Ipratropium/Albuterol Neb 3 ML IH ONE (17:03)
[2016-09-27] MEDS ORDERED: *HR* Morphine 2 MG/ML SYRINGE IVP STA (00:34)
[2016-09-27] MEDS ORDERED: *HR* Morphine 2 MG/ML SYRINGE IVP ONE (00:43)
[2016-09-27] MEDS ORDERED: *HR* HYDROmorphone (PF) 1 MG/ML SYRINGE IM ONE (01:43)
[2016-09-27] MEDS ORDERED: *HR* HYDROmorphone (PF) 1 MG/ML SYRINGE IVP STA (01:53)
[2016-09-27] MEDS: Ipratropium/Albuterol Neb 3 ML IH SCH ×6 (03:32→23:18)
[2016-09-27 04:31] LABS: Hematocrit 27.6 % (35.3-44.9); Hemoglobin 8.3 g/dL (11.5-15.4); Mean Corpuscular HGB Conc 30.1 g/dL (31.6-35.5); Mean Corpuscular Hemoglobin 27.4 pg (28.0-33.3); Mean Corpuscular Volume 91.1 fL (83.0-100.0); Mean Platelet Volume 11.8 fL (9.4-12.4); Platelet Count 197 K/mcL (140-400); Red Blood Count 3.03 M/mcL (3.82-4.97); Red Cell Distribution Width 14.4 % (11.5-14.5)
[2016-09-27] MEDS: *HR* OxyCODONE Immed Rel 5 MG TABLET PO PRN (04:39)
[2016-09-27] MEDS: *HR* Enoxaparin 40 MG/0.4 ML SYRINGE SQ SCH (04:39)
[2016-09-27 04:41] LABS: BUN/Creatinine Ratio 23 (6-26); Blood Urea Nitrogen 19 mg/dL (7-20); Calcium 9.5 mg/dL (8.6-10.8); Chloride 95 mEq/L (98-109); Glucose 84 mg/dL (70-99); Magnesium 1.7 mg/dL (1.6-2.6); Osmolality,Calculated 293 (280-300); Potassium 4.4 mEq/L (3.5-4.5); Sodium 141 mEq/L (136-145); eGFR For African Americans > 60 (> 60); eGFR For Non-African Americans > 60 (> 60)
[2016-09-27 04:42] LABS: Phosphorous 3.3 mg/dL (2.3-4.7)
[2016-09-27 04:45] LABS: Carbon Dioxide 40 mEq/L (19-29)
[2016-09-27 04:56] LABS: Lymphocytes # 1.5 K/mcL (0.6-4.6); Monocytes # 0.6 K/mcL (0.0-1.3); Neutrophils # 5.3 K/mcL (1.6-8.9); Platelet Estimate Normal (Normal)
[2016-09-27] MEDS: Beclomethasone 80mcg MDI IH SCH ×2 (07:36→20:14)
[2016-09-27 07:55] LABS: ABG Base Excess 16.4 mEq/L (-2.0 to 3.0); ABG HCO3 44.7 mEQ/L (21-27); ABG Oxygen Saturation 98 % (95-98); ABG PH 7.35 pH Units (7.32-7.45); ABG PO2 101 mmHg (85-104); ABG TCO2 47.2 mEq/L (20-26)
[2016-09-27 07:56] LABS: Blood Gas FiO2 30 %; Blood Gas Liter Flow 2.5 L/MIN
[2016-09-27 07:58] LABS: ABG PCO2 81 mmHg (35-45)
--- NOTE | 2016-09-27 08:19 | Internal Med Progress Note ---
Date of Encounter: 09/27/16 Time of Encounter: 08:16 - Assessment and plan (1) Acute and chronic respiratory failure with hypercapnia Current Visit: Yes Status: Acute Assessment and plan: Pt has chronic history of hypercapnia and reports of not using her bipap at home Noted to have worsening hypercapnia this morning ABG noted will continue bipap support today with breaks for meals continue systemic steroids bronchodilator support repeat ABG later today and serial ABGs as needed monitor O2 sat goal O2 sat: 89-92% continue abx for a total of 7 days (2) Community acquired pneumonia Current Visit: No Status: Acute Assessment and plan: Failed outpatient therapy, likely secondary to noncompliance clinically improving plan as listed above (3) COPD (chronic obstructive pulmonary disease) Current Visit: Yes Status: Chronic Assessment and plan: as listed above Qualifiers: COPD type: unspecified COPD Qualified Code(s): J44.9 - Chronic obstructive pulmonary disease, unspecified (4) Anemia Current Visit: No Status: Chronic Assessment and plan: Iron deficiency anemia will continue iron supplementation Stool Occult Negative H&H low but acceptable no acute bleeding reported at this time Will continue to closely monitor and transfuse as needed Qualifiers: Anemia type: iron deficiency Qualified Code(s): D50.8 - Other iron deficiency anemias (5) Chest pain Current Visit: Yes Status: Acute Assessment and plan: Cardiac work up negative for ischemia Diffuse tenderness persists and given elevated ESR and CRP and clinically presentation of her pain sites (tenderness upon palpation of her interphalangeal and metacarpophalangeal joints. Multiple points of tenderness in lower back as well): pt responding well to PO steroids. Will benefit from outpatient follow up with rheumatology Will use Oxycodone 7.5/325 PO q6h prn moderate to severe pain Qualifiers: Chest pain type: precordial pain Qualified Code(s): R07.2 - Precordial pain (6) Generalized weakness Current Visit: No Status: Chronic Assessment and plan: plan as listed above PT eval recommended SNF placement dust box worker on board, awaiting SNF placement (7) HTN (hypertension) Current Visit: Yes Status: Chronic Assessment and plan: BP within acceptable range continue current management Will closely monitor BP and hold antihypertensives if SBP<120 Qualifiers: Hypertension type: essential hypertension Qualified Code(s): I10 - Essential (primary) hypertension (8) CAD (coronary artery disease) Current Visit: Yes Status: Chronic Assessment and plan: no signs of angina present at this time continue home medications Qualifiers: Coronary Disease-Associated Artery/Lesion type: bypass graft [place] vs. 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 Pt reported of diffuse body pain (b/l shoulders, back) overnight and received Dilaudid and morphine and was noted to be hypercapneic this morning. She reports of having bipap at home but does not use it often. Currently saturating well on room air but states she is having difficulty breathing. Noted to have diffuse wheezing on auscultation. Pt's chronic pain may be related to an underlying rheumatological illness. At this time, denies any pain. Will place on bipap support today Discharge planning initiated and pending placement to ECF. - Constitutional Vitals: Temp Pulse Resp BP Pulse Ox 98.0 F 84 19 121/54 100 09/27/16 04:26 09/27/16 04:26 09/27/16 04:26 09/27/16 04:26 09/27/16 04:26 General appearance: Present: cooperative, A&O X 3, no acute distress - Head Head exam: Present: atraumatic, normocephalic - Eye Eye exam: Present: normal appearance, conjuntiva pink, sclera anicteric - Respiratory Respiratory exam: Present: wheezes. Absent: respiratory distress, rhonchi - Cardiovascular Cardiovascular exam: Present: RRR, +S1, +S2. Absent: diastolic murmur, gallop, rubs, systolic murmur - GI/Abdominal GI/Abdominal exam: Present: normal bowel sounds, soft, no peritoneal signs. Absent: distended, tenderness - Extremities Exam Extremities exam: Present: warm, radial pulses palpable and symetrical. Absent : calf tenderness, cyanotic, pedal edema - Neurological Exam Neurological exam: Present: alert, oriented X3 - Psychiatric Psychiatric exam: Present: normal affect, normal mood Internal Medicine: Result - Labs CBC & Chem 7: 09/27/16 04:14 09/27/16 04:14 Labs: Short CBC 09/27/16 Range/Units 04:14 WBC 7.3 (4.3-11.1) K/mcL Hgb 8.3 L (11.5-15.4) g/dL Hct 27.6 L (35.3-44.9) % Plt Count 197 (140-400) K/mcL Neutrophils # 5.3 (1.6-8.9) K/mcL BMP 09/27/16 04:14 Sodium 141 Potassium 4.4 Chloride 95 L Carbon Dioxide 40 H* BUN 19 Creatinine 0.83 Glucose 84 Calcium 9.5 - ABG Interpretation ABG results: ABG ABG pH 7.35 pH Units (7.32-7.45) 09/27/16 07:47 ABG pCO2 81 mmHg (35-45) H* 09/27/16 07:47 ABG pO2 101 mmHg (85-104) 09/27/16 07:47 ABG O2 Saturation 98 % (95-98) 09/27/16 07:47 - VTE Documentation of Mechanical Device: Intermittent pneumatic compression device Consult Discharge Plan - Plan Referrals: NO,PCP [Primary Care Provider] - (staff called [facility] and [facility]. due to patient no call no show, they will not accept the patient... SW talked to pt. Son and patient has an appt. at [facility] in two months.)
[2016-09-27] MEDS ORDERED: *HR* OxyCODONE/APAP 7.5/325 TABLET PO PRN (08:20)
[2016-09-27] MEDS: amLODIPine 5 MG TABLET PO SCH (09:18)
[2016-09-27] MEDS: Metoprolol XL (24 HR) Succ 25 MG TAB.ER.24H PO SCH (09:19)
[2016-09-27] MEDS: Magnesium Oxide 400 MG TABLET PO SCH (09:22)
[2016-09-27] MEDS: Aspirin Enteric Coated 81 MG Tablet PO SCH (09:22)
[2016-09-27] MEDS: Multivit/Ca/Min/Fe/FA 1 TAB TABLET PO SCH (09:22)
[2016-09-27] MEDS: predniSONE 20 MG TABLET PO SCH (09:22)
[2016-09-27] MEDS: Folic Acid 1 MG TABLET PO SCH (09:23)
[2016-09-27] MEDS: Thiamine (B-1) 100 MG TABLET PO SCH (09:23)
[2016-09-27] MEDS: Artificial Tears SOLN 15 ML BOTTLE BOTH EYES SCH ×4 (09:23→21:14)
[2016-09-27] MEDS: levoFLOXacin 750 MG TABLET PO SCH (09:23)
[2016-09-27] MEDS ORDERED: Ketorolac 30 MG/ML VIAL IVP ONE (15:03)
[2016-09-28] MEDS: Ipratropium/Albuterol Neb 3 ML IH SCH ×3 (04:32→10:51)
[2016-09-28 04:49] LABS: Basophils % 0.5 %; Eosinophils % 0.5 %; Hematocrit 29.7 % (35.3-44.9); Hemoglobin 8.8 g/dL (11.5-15.4); Immature Granulocytes % 3.8 % (0-4); Lymphocytes # 1.7 K/mcL (0.6-4.6); Lymphocytes % 19.2 %; Mean Corpuscular HGB Conc 29.6 g/dL (31.6-35.5); Mean Corpuscular Hemoglobin 27.1 pg (28.0-33.3); Mean Corpuscular Volume 91.4 fL (83.0-100.0); Mean Platelet Volume 11.4 fL (9.4-12.4); Monocytes # 0.9 K/mcL (0.0-1.3); Neutrophils # 5.7 K/mcL (1.6-8.9); Nucleated Red Blood Cells 0.2 /100 WBC (0); Platelet Count 211 K/mcL (140-400); Red Blood Count 3.25 M/mcL (3.82-4.97); Red Cell Distribution Width 14.4 % (11.5-14.5)
[2016-09-28 05:16] LABS: BUN/Creatinine Ratio 26 (6-26); Blood Urea Nitrogen 21 mg/dL (7-20); Calcium 9.7 mg/dL (8.6-10.8); Carbon Dioxide 36 mEq/L (19-29); Chloride 96 mEq/L (98-109); Glucose 87 mg/dL (70-99); Osmolality,Calculated 288 (280-300); Phosphorous 2.6 mg/dL (2.3-4.7); Potassium 4.6 mEq/L (3.5-4.5); Sodium 138 mEq/L (136-145); eGFR For African Americans > 60 (> 60); eGFR For Non-African Americans > 60 (> 60)
[2016-09-28] MEDS: *HR* Enoxaparin 40 MG/0.4 ML SYRINGE SQ SCH (06:15)
[2016-09-28 06:39] VITALS: BP 124/70
[2016-09-28] MEDS: Beclomethasone 80mcg MDI IH SCH (07:49)
[2016-09-28] MEDS: predniSONE 20 MG TABLET PO SCH (09:21)
[2016-09-28] MEDS: levoFLOXacin 750 MG TABLET PO SCH (09:21)
[2016-09-28] MEDS: Aspirin Enteric Coated 81 MG Tablet PO SCH (09:21)
[2016-09-28] MEDS: Multivit/Ca/Min/Fe/FA 1 TAB TABLET PO SCH (09:21)
[2016-09-28] MEDS: Folic Acid 1 MG TABLET PO SCH (09:23)
[2016-09-28] MEDS: Thiamine (B-1) 100 MG TABLET PO SCH (09:23)
[2016-09-28] MEDS: Metoprolol XL (24 HR) Succ 25 MG TAB.ER.24H PO SCH (09:23)
[2016-09-28] MEDS: amLODIPine 5 MG TABLET PO SCH (09:24)
[2016-09-28] MEDS: Magnesium Oxide 400 MG TABLET PO SCH (09:24)
[2016-09-28] MEDS: Artificial Tears SOLN 15 ML BOTTLE BOTH EYES SCH ×2 (09:24→12:38)
--- NOTE | 2016-09-28 10:18 | Discharge Summary ---
Date of Encounter: 09/28/16 Time of Encounter: 09:55 - Discharge Diagnosis (1) Acute and chronic respiratory failure with hypercapnia Priority: Secondary Status: Chronic (2) Community acquired pneumonia Priority: Primary Status: Acute (3) COPD (chronic obstructive pulmonary disease) Priority: Primary Status: Chronic Qualifiers: COPD type: unspecified COPD Qualified Code(s): J44.9 - Chronic obstructive pulmonary disease, unspecified (4) Anemia Priority: Secondary Status: Chronic Qualifiers: Anemia type: iron deficiency Qualified Code(s): D50.8 - Other iron deficiency anemias (5) Chest pain Priority: Secondary Status: Resolved Qualifiers: Chest pain type: precordial pain Qualified Code(s): R07.2 - Precordial pain (6) Generalized weakness Priority: Secondary Status: Chronic (7) HTN (hypertension) Priority: Secondary Status: Chronic Qualifiers: Hypertension type: essential hypertension Qualified Code(s): I10 - Essential (primary) hypertension (8) CAD (coronary artery disease) Priority: Secondary Status: Chronic Qualifiers: Coronary Disease-Associated Artery/Lesion type: bypass graft [place] vs. transplanted heart: [place] heart Associated angina: without angina Qualified Code(s): I25.810 - Atherosclerosis of coronary artery bypass graft(s) without angina pectoris (9) DVT prophylaxis Priority: Secondary Status: Acute - Discharge Medications Prescriptions: OxyCODONE/APAP 7.5/325 [Percocet 7.5/325 MG] 1 each PO Q6HR PRN #20 tablet PRN Reason: moderate to severe pain Levofloxacin [Levaquin] 750 mg PO DAILY #4 tablet predniSONE [PredniSONE] 40 mg PO DAILY #2 tablet Home Medications: Aspirin Enteric Coated [Aspirin EC] 81 mg PO DAILY #0 12/13/14 [History] Ferrous Sulfate 325 mg PO DAILY #0 12/13/14 [History] Folic Acid 1 mg PO DAILY #0 12/13/14 [History] Nitroglycerin 0.4 mg SL Q5M PRN #0 12/13/14 [History] Omeprazole [PriLOSEC] 20 mg PO BID #0 12/13/14 [History] Thiamine (B-1) [Vitamin B-1] 100 mg PO DAILY #0 12/13/14 [History] Metoprolol XL (24 HR) Succ [Toprol XL] 25 mg PO DAILY 01/17/15 [History] Multivitamin/Iron/Folic Acid [Centrum Complete Multivit Tab] 1 each PO DAILY [History] Cetirizine HCl [All Day Allergy] 10 mg PO DAILY PRN 09/15/16 [History] Fluticasone Propionate [Flovent Hfa] 1 puff IH BID PRN 09/15/16 [History] Ipratropium/Albuterol Sulfate [Combivent Respimat Inhal [place]] 1 puff IH QID PRN 09/15/16 [History] Sennosides/Docusate Sodium [Senna-S Tablet] 1 each PO BID PRN 09/15/16 [History] Simvastatin [Zocor] 10 mg PO HS 09/15/16 [History] Magnesium Oxide [Mgo] 400 mg PO DAILY 09/16/16 [History] Albuterol Sulfate [Albuterol Inhaler] 1 puff IH Q4H PRN #3 inhaler 09/19/16 [Rx] GuaiFENesin ER [Mucinex] 600 mg PO BID 10 Days 09/19/16 [Rx] Ferrous Sulfate 325 mg PO TIDWM tablet 09/28/16 [Rx] Ipratropium/Albuterol Neb [Duoneb] 3 ml IH [id number] PRN #0 inhsol 09/28/16 [Rx] Levofloxacin [Levaquin] 750 mg PO DAILY #4 tablet 09/28/16 [Rx] Lisinopril [Zestril] 5 mg PO DAILY tablet 09/28/16 [Rx] OxyCODONE/APAP 7.5/325 [Percocet 7.5/325 MG] 1 each PO Q6HR PRN #20 tablet 09/28 [Rx] amLODIPine [Norvasc] 5 mg PO DAILY tablet 09/28/16 [Rx] predniSONE [PredniSONE] 40 mg PO DAILY #2 tablet 09/28/16 [Rx] Allergies/Adverse Reactions: Allergies No Known Allergies Allergy (Verified 09/15/16 17:19) Date of admission: 09/23/16 01:44 Primary care physician: PCP NO Consults: 09/23/16 05:27 Consult to High Pressure Boiler Operator [CONS] Routine Reason for SW Consult: No medical f/up, no PCP 09/24/16 08:56 Consult to Occupational Therapy [CONS] Routine Comment: Evaluate, develop and implement POC Reason for Consult: needs eval for ecf Consult to Physical Therapy [CONS] Routine Comment: Evaluate, develop and implement POC Reason for Consult: needs eval for ecf Discharging clinician: Kathy Browne Anticipated date of discharge: 09/28/16 - Patient Status Disposition: Transfer SNF Condition: Good Functional capacity at discharge: uses cane/walker Overall status at discharge: patient is back to baseline - Discharge Instructions Follow Up With: NO,PCP [Primary Care Provider] - (staff called [facility] and [facility] clinic. due to patient no call no show, they will not accept the patient... SW talked to pt. Son and patient has an appt. at [facility] in two months.) Additional Instructions: Please follow-up with your primary care physician within one week after discharge from the hospital. Please ask your primary care physician about a referral to a filter tank tender helper head. Please continue your oral antibiotics and steroids as prescribed. Please continue BiPAP support at bedtime. Please resume all your other home medications as prescribed by her primary care physician. Please closely monitor blood pressure as you were noted to have low blood pressure readings during your hospitalization. Your home dose of lisinopril, amlodipine have been reduced. Please take these medications as prescribed. Closely monitor blood pressure and hold your blood pressure medication if your systolic blood pressures is less than 120. - Diet and Activity Activity: as per physical therapy, wear oxygen at all times Diet: low salt diet Hospital course: Ms. Vaughn is a 56 year old female with past medical history of COPD on long-term oxygen therapy, CAD, hyperlipidemia, hypertension, anxiety who was admitted for management of chest pain and pneumonia. Patient underwent cardiac workup including stress test which was all negative for any cardiac etiology in her chest pain was secondary to the pneumonia. Patient was started on IV antibiotics. She also had multiple joint pain concerning for a rheumatological illness along with worsening of shortness of breath secondary to COPD exacerbation. Patient was started on systemic steroids to which she responded appropriately. Patient also reports of being noncompliant with her BiPAP support contributing to her chronic respiratory failure with hypercapnia. She continued to refuse BiPAP support throughout the course of her hospitalization. She continued to also explicit drug-seeking behavior. She was evaluated by physical therapy and short-term rehabilitation was recommended. At this time patient is hemodynamically stable, saturating well on her home oxygen level. She continues to refuse BiPAP support. She will be discharged to rehabilitation with follow-up with primary care physician and filter tank tender helper head. She is to continue oral antibiotics and steroids at the rehabilitation facility. Patient demonstrates understanding of her diagnosis and agrees with the discharge plan. - Time Spent with Patient Total time spent providing and/or coordinating discharge services: Less than 30 minutes - Constitutional Vitals: Temp Pulse Resp BP Pulse Ox 98.7 F 84 16 124/70 93 09/28/16 06:38 09/28/16 06:38 09/28/16 07:49 09/28/16 06:38 09/28/16 09:33 General appearance: Present: cooperative, A&O X 3, no acute distress - Head Head exam: Present: atraumatic, normocephalic - Eye Eye exam: Present: normal appearance, conjuntiva pink, sclera anicteric - Respiratory Respiratory exam: Present: CTAB. Absent: accessory muscle use, rales, rhonchi, wheezes - Cardiovascular Cardiovascular exam: Present: RRR, +S1, +S2. Absent: diastolic murmur, gallop, rubs, systolic murmur - GI/Abdominal GI/Abdominal exam: Present: normal bowel sounds, soft, no peritoneal signs. Absent: distended, tenderness - Extremities Exam Extremities exam: Present: warm, radial pulses palpable and symetrical. Absent : calf tenderness, cyanotic, pedal edema - Neurological Exam Neurological exam: Present: alert, oriented X3 - Psychiatric Psychiatric exam: Present: normal affect, normal mood - VTE Documentation of Mechanical Device: Intermittent pneumatic compression device
--- NOTE | 2016-09-28 10:24 | Physician Discharge Referral ---
ExtendedCare Referral Info Transfer To: [facility] Provider in Charge after Transfer: PCP - Diagnosis (1) Acute and chronic respiratory failure with hypercapnia Priority: Secondary Status: Chronic (2) Community acquired pneumonia Priority: Primary Status: Acute (3) COPD (chronic obstructive pulmonary disease) Priority: Secondary Status: Chronic (4) Anemia Priority: Secondary Status: Chronic (5) Chest pain Priority: Primary Status: Resolved (6) Generalized weakness Priority: Secondary Status: Chronic (7) HTN (hypertension) Priority: Secondary Status: Chronic (8) CAD (coronary artery disease) Priority: Secondary Status: Chronic (9) DVT prophylaxis Priority: Secondary Status: Acute - Transfer Medications Prescriptions: OxyCODONE/APAP 7.5/325 [Percocet 7.5/325 MG] 1 each PO Q6HR PRN #20 tablet PRN Reason: moderate to severe pain Levofloxacin [Levaquin] 750 mg PO DAILY #4 tablet predniSONE [PredniSONE] 40 mg PO DAILY #2 tablet Home Medications: Aspirin Enteric Coated [Aspirin EC] 81 mg PO DAILY #0 12/13/14 [History] Ferrous Sulfate 325 mg PO DAILY #0 12/13/14 [History] Folic Acid 1 mg PO DAILY #0 12/13/14 [History] Nitroglycerin 0.4 mg SL Q5M PRN #0 12/13/14 [History] Omeprazole [PriLOSEC] 20 mg PO BID #0 12/13/14 [History] Thiamine (B-1) [Vitamin B-1] 100 mg PO DAILY #0 12/13/14 [History] Metoprolol XL (24 HR) Succ [Toprol XL] 25 mg PO DAILY 01/17/15 [History] Multivitamin/Iron/Folic Acid [Centrum Complete Multivit Tab] 1 each PO DAILY [History] Cetirizine HCl [All Day Allergy] 10 mg PO DAILY PRN 09/15/16 [History] Fluticasone Propionate [Flovent Hfa] 1 puff IH BID PRN 09/15/16 [History] Ipratropium/Albuterol Sulfate [Combivent Respimat Inhal [place]] 1 puff IH QID PRN 09/15/16 [History] Sennosides/Docusate Sodium [Senna-S Tablet] 1 each PO BID PRN 09/15/16 [History] Simvastatin [Zocor] 10 mg PO HS 09/15/16 [History] Magnesium Oxide [Mgo] 400 mg PO DAILY 09/16/16 [History] Albuterol Sulfate [Albuterol Inhaler] 1 puff IH Q4H PRN #3 inhaler 09/19/16 [Rx] GuaiFENesin ER [Mucinex] 600 mg PO BID 10 Days 09/19/16 [Rx] Ferrous Sulfate 325 mg PO TIDWM tablet 09/28/16 [Rx] Ipratropium/Albuterol Neb [Duoneb] 3 ml IH [id number] PRN #0 inhsol 09/28/16 [Rx] Levofloxacin [Levaquin] 750 mg PO DAILY #4 tablet 09/28/16 [Rx] Lisinopril [Zestril] 5 mg PO DAILY tablet 09/28/16 [Rx] OxyCODONE/APAP 7.5/325 [Percocet 7.5/325 MG] 1 each PO Q6HR PRN #20 tablet 09/28 [Rx] amLODIPine [Norvasc] 5 mg PO DAILY tablet 09/28/16 [Rx] predniSONE [PredniSONE] 40 mg PO DAILY #2 tablet 09/28/16 [Rx] Allergies/Adverse Reactions: Allergies No Known Allergies Allergy (Verified 09/15/16 17:19) - Respiratory Orders Smoking Cessation: Smoking cessation has been advised. For more information, call the [place] Tobacco Quit Line at 9-340-OWAK-NOW. - Rehabiliation Orders Other: Please follow-up with your primary care physician within one week after discharge from the hospital. Please ask your primary care physician about a referral to a classification and treatment director. Please continue your oral antibiotics and steroids as prescribed. Please continue BiPAP support at bedtime. Please resume all your other home medications as prescribed by her primary care physician. Please closely monitor blood pressure as you were noted to have low blood pressure readings during your hospitalization. Your home dose of lisinopril, amlodipine have been reduced. Please take these medications as prescribed. Closely monitor blood pressure and hold your blood pressure medication if your systolic blood pressures is less than 120. CERTIFICATION: I certify that the transfer of the above named patient to an Extended Care Facility is necessary for the continuing treatment of the diagnosis listed. The above information is true and accurate reflection of patient's current condition. Confidential - Redisclosure prohibited without a patient's written consent.
== END 2016-09-28 13:29 ==
LOC: EMEROO 23:34 → 2ANU 23:34 → SUATTDRO 09-23 01:44 → 2ANU 09-23 02:08
PROVIDERS: ADMIT Internal Medicine; ATTEND Internal Medicine

== ENCOUNTER 2017-02-21 16:41 | Inpatient (IN) ==
[2017-02-21] MEDS ORDERED: Ipratropium/Albuterol Neb 3 ML IH ONE (16:42)
[2017-02-21] MEDS ORDERED: methylPREDNISolone 125 MG/2 ML VIAL IVP ONE (16:43)
[2017-02-21] MEDS ORDERED: Levofloxacin 750 MG/150 ML 750 MG/150 ML BAG IVPB ONE (16:49)
[2017-02-21] MEDS ORDERED: 0.9 % Sodium Chloride 1,000 ML IVC ONE (16:50)
--- NOTE | 2017-02-21 16:53 | Emergency Department Note ---
Disposition Clinical Impression: Acute exacerbation of chronic obstructive airways disease, Acute respiratory failure with hypoxia and hypercapnia Disposition: Admitted As Inpatient Condition: Critical Time of Disposition: 18:59 General Adult HPI - General Chief complaint: ED Shortness of Breath/Dyspnea Stated complaint: REA Time Seen by Provider: 02/21/17 16:44 Nursing Notes Reviewed: Yes Vital Signs Reviewed: Yes - History of Present Illness HPI Narrative: 57-year-old female presents to the emergency department with what she feels like is a COPD exacerbation. She was said by her son to have just passed out in the car. He called EMS to the scene. Patient's respiration was in the 60s and 70s on the ambulance. They placed CPAP on the patient. Got her saturation into the 80s. Patient says that she is currently feeling like she is improved a lot as far as her breathing status from where she was before she arrived. And is having shortness of breath. Patient denies any chest pain. - Related Data Home Medications Medication Instructions Recorded Confirmed Aspirin Enteric Coated [Aspirin EC] 81 mg PO DAILY #0 12/13/14 09/23/16 Ferrous Sulfate 325 mg PO DAILY #0 12/13/14 09/23/16 Folic Acid 1 mg PO DAILY #0 12/13/14 09/23/16 Nitroglycerin 0.4 mg SL Q5M PRN #0 12/13/14 09/23/16 Omeprazole [PriLOSEC] 20 mg PO BID #0 12/13/14 09/23/16 Thiamine (B-1) [Vitamin B-1] 100 mg PO DAILY #0 12/13/14 09/23/16 Metoprolol XL (24 HR) Succ [Toprol 25 mg PO DAILY 01/17/15 09/23/16 XL] Multivitamin/Iron/Folic Acid 1 each PO DAILY 01/17/15 09/23/16 [Centrum Complete Multivit Tab] Cetirizine HCl [All Day Allergy] 10 mg PO DAILY PRN 09/15/16 09/23/16 Fluticasone Propionate [Flovent 1 puff IH BID PRN 09/15/16 09/23/16 Hfa] Ipratropium/Albuterol Sulfate 1 puff IH QID PRN 09/15/16 09/23/16 [Combivent Respimat Inhal [place]] Sennosides/Docusate Sodium 1 each PO BID PRN 09/15/16 09/23/16 [Senna-S Tablet] Simvastatin [Zocor] 10 mg PO HS 09/15/16 09/23/16 Magnesium Oxide [Mgo] 400 mg PO DAILY 09/16/16 09/23/16 Previous Rx's Medication Instructions Recorded Albuterol Sulfate [Albuterol 1 puff IH Q4H PRN #3 inhaler 09/19/16 Inhaler] GuaiFENesin ER [Mucinex] 600 mg PO BID 10 Days tbbp.12hr 09/19/16 Ferrous Sulfate 325 mg PO TIDWM tablet 09/28/16 Ipratropium/Albuterol Neb [Duoneb] 3 ml IH [id number] PRN #0 inhsol 09/28/16 Levofloxacin [Levaquin] 750 mg PO DAILY #4 tablet 09/28/16 Lisinopril [Zestril] 5 mg PO DAILY tablet 09/28/16 OxyCODONE/APAP 7.5/325 [Percocet 1 each PO Q6HR PRN #20 tablet 09/28/16 7.5/325 MG] amLODIPine [Norvasc] 5 mg PO DAILY tablet 09/28/16 predniSONE [PredniSONE] 40 mg PO DAILY #2 tablet 09/28/16 Allergies Allergy/AdvReac Type Severity Reaction Status Date / Time No Known Allergies Allergy Verified 09/15/16 17:19 All systems ED: reviewed and negative except as stated. Review of Systems: As Per HPI Constitutional: Denies: fever, chills Cardiovascular: Denies: chest pain Respiratory: Reports: cough, dyspnea, wheezes Gastrointestinal: Denies: abdominal pain, nausea, vomiting Genitourinary: Denies: urgency Musculoskeletal: Denies: back pain Integumentary: Denies: rash Neurological: Denies: headache Endocrine: Reports: fatigue Past Medical History - Past Medical History Medical history: Reports: CHF, COPD, hyperlipidemia, hypertension, myocardial infarction Surgical history: Reports: appendectomy, coronary bypass (CABG) Psychiatric history: Reports: anxiety - Social History Smoking Status: Former smoker (quit smoking 5 months ago, has 40 pack years smoking history) Smokeless Tobacco Status: No Alcohol use: Reports: none Drug use: Reports: none Physical Exam General: 57-year-old female appearing to be in acute respiratory distress, CPAP mask on, leaning forward Head: autraumatic, EOMI, no conjuncitval pallor, no scleral icterus, Mouth: oral mucous membranes moist Neck: neck soft, trachea midline Chest:: Equal chest wall rise Lungs: Respiratory distress, accessory muscle use, wheezes throughout bilaterally Heart: normal heart sounds, tachycardic and normal rhythm, Abdomen: soft, non-tender, no rigidity, no guarding, no rebdound tenderness Lower Extremities: no pedal edema, calves non-tender Integumentary: Skin warm, dry, and intact Neuro: Alert Psych: Anxious Course Vital Signs Respiratory Rate 26 02/21/17 16:41 O2 Sat by Pulse Oximetry 88 02/21/17 16:41 Temperature 97.9 F 02/21/17 16:42 Pulse Rate 130 02/21/17 17:28 Respiratory Rate 16 02/21/17 17:28 Blood Pressure 98/50 02/21/17 17:28 O2 Sat by Pulse Oximetry 96 02/21/17 17:28 Oxygen Delivery Oxygen Delivery Bipap Medical Decision Making - [facility] Narrative Medical decision making narrative: 57-year-old female presented to the emergency department via EMS with respiratory distress and concern for COPD exacerbation. Patient was satting in the low 80s on CPAP. Patient was immediately placed on BiPAP, and appeared to be resting a lot more comfort with. Chest x-ray reveals a known right opacity in the right upper lobe of the lung. Patient's initial ABG showed a pH of 7.08. And a PCO2 of 135. Due to the patient appears if she is responding well on the BiPAP, I do not think it is necessary to intubate this patient this time. The patient had a pulse of 130 and a blood pressure of 98/50. I have given this patient 1 L of fluids to address this. Repeat ABG revealed improving respiratory status as for the pH is 7.13 and PCO2 is now 113. Currently on BiPAP at time of admission. We have given her duonebs, Solu-Medrol , we have also given her antimicrobial treatment with Levaquin. I discussed this with the patient and she was in agreement as well. I spoke to the hospitalist and he agreed to accept her. Chest X-Ray 02/21/17 16:42 IMPRESSION: No radiographic evidence of acute cardiopulmonary disease. Unchanged right upper lobe opacity. Please see previous chest CT report from 09/15/2016. D/ / Roberto Daugherty MD / Roberto Daugherty MD Interpreting Provider: Roberto Daugherty MD Vital Signs Respiratory Rate 26 02/21/17 16:41 O2 Sat by Pulse Oximetry 88 02/21/17 16:41 Temperature 97.9 F 02/21/17 16:42 Pulse Rate 130 02/21/17 17:28 Respiratory Rate 16 02/21/17 17:28 Blood Pressure 98/50 02/21/17 17:28 O2 Sat by Pulse Oximetry 96 02/21/17 17:28 Oxygen Delivery Oxygen Delivery Bipap - Medical Records Medical records reviewed: Yes I reviewed the patient's medical records. - Lab Data Lab results reviewed: Yes I reviewed the patient's lab results. Result diagrams: 02/21/17 17:13 02/21/17 17:13 Lab Results 02/21/17 02/21/17 02/21/17 Range/Units 17:11 17:13 17:13 WBC 17.6 H (4.3-11.1) K/mcL RBC 3.74 L (3.82-4.97) M/mcL Hgb 10.8 L (11.5-15.4) g/dL Hct 36.1 (35.3-44.9) % MCV 96.5 (83.0-100.0) fL MCH 28.9 (28.0-33.3) pg MCHC 29.9 L (31.6-35.5) g/dL RDW 12.7 (11.5-14.5) % Plt Count 186 (140-400) K/mcL MPV 11.6 (9.4-12.4) fL Immature Gran % 0.7 (0-4) % Seg Neutrophils % 82.6 % Lymphocytes % 6.3 % Monocytes % 8.2 % Eosinophils % 1.9 % Basophils % 0.3 % Neutrophils # 14.6 H (1.6-8.9) K/mcL Lymphocytes # 1.1 (0.6-4.6) K/mcL Monocytes # 1.4 H (0.0-1.3) K/mcL Eosinophils # 0.3 (0.0-0.6) K/mcL Basophils # 0.1 (0.0-0.2) K/mcL Sample Site R Radial ABG pH 7.08 L* (7.32-7.45) pH Units ABG pCO2 135 H* (35-45) mmHg ABG pO2 202 H (85-104) mmHg ABG HCO3 40 H (21-27) mEq/L ABG Total CO2 44 H (20-26) mEq/L ABG O2 Saturation 99 H (95-98) % ABG Base Excess 5 H (-2 to 3) mEq/L David Test Positive O2 Delivery Device BiPAP Blood Gas Modality PS Inspired O2 50.0 (1-15=lpm [id number]=%) PEEP 6 cm H2O Pressure Support 12 cm H2O Sodium 137 (136-145) mEq/L Potassium 3.8 (3.5-4.5) mEq/L Chloride 92 L (98-109) mEq/L Carbon Dioxide 36 H (19-29) mEq/L BUN 10 (7-20) mg/dL Creatinine 0.93 (0.57-1.11) mg/dL Est GFR ( Amer) > 60 (> 60) Est GFR (Non-Af Amer) > 60 (> 60) BUN/Creatinine Ratio 11 (6-26) Glucose 186 H (70-99) mg/dL Calculated Osmolality 288 (280-300) Lactic Acid (0.5-2.2) mmol/L Calcium 9.9 (8.6-10.8) mg/dL Troponin I (0-0.03) ng/mL B-Natriuretic Peptide (0-100) pg/mL Urine Color (Yellow) Urine Clarity (Clear) Urine pH (5.0-8.0) pH Units Ur Specific [place] (1.010-1.025) Urine Protein (Neg-Trace) mg/dL Urine Glucose (UA) (Normal) mg/dL Urine Ketones (Negative) mg/dL Urine Blood (Negative) Urine Nitrite (Negative) Urine Bilirubin (Negative) Urine Urobilinogen (Normal) mg/dL Ur Leukocyte Esterase (Negative) Urine Microscopic RBC (0-3) per hpf Urine Microscopic WBC (0-3) per hpf Ur Squamous Epith Cells (None-Few) per lpf Urine Bacteria (None-Few) per hpf Ur Culture Indicated? (NO) 02/21/17 02/21/17 02/21/17 Range/Units 17:13 17:13 17:24 WBC (4.3-11.1) K/mcL RBC (3.82-4.97) M/mcL Hgb (11.5-15.4) g/dL Hct (35.3-44.9) % MCV (83.0-100.0) fL MCH (28.0-33.3) pg MCHC (31.6-35.5) g/dL RDW (11.5-14.5) % Plt Count (140-400) K/mcL MPV (9.4-12.4) fL Immature Gran % (0-4) % Seg Neutrophils % % Lymphocytes % % Monocytes % % Eosinophils % % Basophils % % Neutrophils # (1.6-8.9) K/mcL Lymphocytes # (0.6-4.6) K/mcL Monocytes # (0.0-1.3) K/mcL Eosinophils # (0.0-0.6) K/mcL Basophils # (0.0-0.2) K/mcL Sample Site ABG pH (7.32-7.45) pH Units ABG pCO2 (35-45) mmHg ABG pO2 (85-104) mmHg ABG HCO3 (21-27) mEq/L ABG Total CO2 (20-26) mEq/L ABG O2 Saturation (95-98) % ABG Base Excess (-2 to 3) mEq/L David Test O2 Delivery Device Blood Gas Modality Inspired O2 (1-15=lpm [id number]=%) PEEP cm H2O Pressure Support cm H2O Sodium (136-145) mEq/L Potassium (3.5-4.5) mEq/L Chloride (98-109) mEq/L Carbon Dioxide (19-29) mEq/L BUN (7-20) mg/dL Creatinine (0.57-1.11) mg/dL Est GFR ( Amer) (> 60) Est GFR (Non-Af Amer) (> 60) BUN/Creatinine Ratio (6-26) Glucose (70-99) mg/dL Calculated Osmolality (280-300) Lactic Acid (0.5-2.2) mmol/L Calcium (8.6-10.8) mg/dL Troponin I 0.00 (0-0.03) ng/mL B-Natriuretic Peptide 327 H (0-100) pg/mL Urine Color Yellow (Yellow) Urine Clarity Cloudy A (Clear) Urine pH 6.5 (5.0-8.0) pH Units Ur Specific [place] 1.017 (1.010-1.025) Urine Protein 100 H (Neg-Trace) mg/dL Urine Glucose (UA) 250 H (Normal) mg/dL Urine Ketones Negative (Negative) mg/dL Urine Blood Trace H (Negative) Urine Nitrite Negative (Negative) Urine Bilirubin Negative (Negative) Urine Urobilinogen Normal (Normal) mg/dL Ur Leukocyte Esterase Negative (Negative) Urine Microscopic RBC 3-5 H (0-3) per hpf Urine Microscopic WBC 3-5 H (0-3) per hpf Ur Squamous Epith Cells Many H (None-Few) per lpf Urine Bacteria None Seen (None-Few) per hpf Ur Culture Indicated? NO (NO) 02/21/17 Range/Units 17:42 WBC (4.3-11.1) K/mcL RBC (3.82-4.97) M/mcL Hgb (11.5-15.4) g/dL Hct (35.3-44.9) % MCV (83.0-100.0) fL MCH (28.0-33.3) pg MCHC (31.6-35.5) g/dL RDW (11.5-14.5) % Plt Count (140-400) K/mcL MPV (9.4-12.4) fL Immature Gran % (0-4) % Seg Neutrophils % % Lymphocytes % % Monocytes % % Eosinophils % % Basophils % % Neutrophils # (1.6-8.9) K/mcL Lymphocytes # (0.6-4.6) K/mcL Monocytes # (0.0-1.3) K/mcL Eosinophils # (0.0-0.6) K/mcL Basophils # (0.0-0.2) K/mcL Sample Site ABG pH (7.32-7.45) pH Units ABG pCO2 (35-45) mmHg ABG pO2 (85-104) mmHg ABG HCO3 (21-27) mEq/L ABG Total CO2 (20-26) mEq/L ABG O2 Saturation (95-98) % ABG Base Excess (-2 to 3) mEq/L David Test O2 Delivery Device Blood Gas Modality Inspired O2 (1-15=lpm [id number]=%) PEEP cm H2O Pressure Support cm H2O Sodium (136-145) mEq/L Potassium (3.5-4.5) mEq/L Chloride (98-109) mEq/L Carbon Dioxide (19-29) mEq/L BUN (7-20) mg/dL Creatinine (0.57-1.11) mg/dL Est GFR ( Amer) (> 60) Est GFR (Non-Af Amer) (> 60) BUN/Creatinine Ratio (6-26) Glucose (70-99) mg/dL Calculated Osmolality (280-300) Lactic Acid 1.0 (0.5-2.2) mmol/L Calcium (8.6-10.8) mg/dL Troponin I (0-0.03) ng/mL B-Natriuretic Peptide (0-100) pg/mL Urine Color (Yellow) Urine Clarity (Clear) Urine pH (5.0-8.0) pH Units Ur Specific [place] (1.010-1.025) Urine Protein (Neg-Trace) mg/dL Urine Glucose (UA) (Normal) mg/dL Urine Ketones (Negative) mg/dL Urine Blood (Negative) Urine Nitrite (Negative) Urine Bilirubin (Negative) Urine Urobilinogen (Normal) mg/dL Ur Leukocyte Esterase (Negative) Urine Microscopic RBC (0-3) per hpf Urine Microscopic WBC (0-3) per hpf Ur Squamous Epith Cells (None-Few) per lpf Urine Bacteria (None-Few) per hpf Ur Culture Indicated? (NO) - Radiology Data Radiology results reviewed: Yes I reviewed the patient's radiology results. - EKG Data EKG #1 EKG attestation: Yes I reviewed and interpreted this EKG. EKG results narrative: 17:13 Ventricular rate 119 bpm, MI interval 141 ms, QRS duration 99 ms, QT 338 seconds , QTC 409 ms, normal axis. Sinus tachycardia with a ventricular rate of 119 bpm. There are no new ischemic ST changes noted on this electrocardiogram. This EKG is compared to a previous one performed on 09/21/2016. Critical Care Time Critical Care Time: Yes Total Critical Care Time: 35 Attestation: Critical care performed: Time is exclusive of separately billable procedures. Time includes: direct patient care, patient reassessment, coordination of patient care, interpretation of data (laboratory data, radiology data, and respiratory data), review of patient's medical records, medical consultation and documentation of patient care. Procedures included in critical care time: Procedures excluded from critical care time: Attestation Statement - Attestation Attestation: I, Tanner Romero DO, examined this patient [id number] and my medical decision-making was reviewed with Dr. Tarik Justice, Resident Physician. I agree with the documented findings, disposition and treatment plan as described except to the extent set forth below. Please see my progress notes for details. 57-year-old female very well-known to EMS as well as ourselves presents to emergency room for shortness of breath. She has long-standing COPD emphysema and hypoxia. She is oxygen dependent. She saw that a pulse ox of 60% immediately placed on CPAP. EMS transported with difficulty getting a pulse ox greater than 80. Patient was mentating on arrival. She is able answer questions. She is still acutely short of breath with very diminished breath sounds bilaterally. Heart is tachycardic. Abdomen is soft nontender distended no signs of pitting edema or swelling. Patient will have breathing treatments steroids antibiotic regimen CBC chemistry troponin BNP and then most of admission for what appears to be outpatient failure treatment and COPD exacerbation. See detailed documentation of the physical exam, medical intervention, medical decision-making and disposition. Critical-care vital this patient. ABG is resolving with medications. Antibiotic regimen started on here. Patient admitted to hospitals. No other concerns or issues this time mentation and vital signs stabilizing.
[2017-02-21 17:15] LABS: ABG Base Excess 5 mEq/L (-2 to 3); ABG HCO3 40 mEq/L (21-27); ABG Oxygen Saturation 99 % (95-98); ABG PCO2 135 mmHg (35-45); ABG PH 7.08 pH Units (7.32-7.45); ABG PO2 202 mmHg (85-104); ABG TCO2 44 mEq/L (20-26); Blood Gas Modality PS; Blood Gas PEEP 6 cm H2O; Blood Gas Pressure Support 12 cm H2O
[2017-02-21 17:23] LABS: Basophils # 0.1 K/mcL (0.0-0.2); Basophils % 0.3 %; Eosinophils # 0.3 K/mcL (0.0-0.6); Eosinophils % 1.9 %; Hematocrit 36.1 % (35.3-44.9); Hemoglobin 10.8 g/dL (11.5-15.4); Immature Granulocytes % 0.7 % (0-4); Lymphocytes # 1.1 K/mcL (0.6-4.6); Lymphocytes % 6.3 %; Mean Corpuscular HGB Conc 29.9 g/dL (31.6-35.5); Mean Corpuscular Hemoglobin 28.9 pg (28.0-33.3); Mean Corpuscular Volume 96.5 fL (83.0-100.0); Mean Platelet Volume 11.6 fL (9.4-12.4); Monocytes # 1.4 K/mcL (0.0-1.3); Monocytes % 8.2 %; Neutrophils # 14.6 K/mcL (1.6-8.9); Platelet Count 186 K/mcL (140-400); Red Blood Count 3.74 M/mcL (3.82-4.97); Red Cell Distribution Width 12.7 % (11.5-14.5); Segmented Neutrophils % 82.6 %
[2017-02-21 17:39] LABS: BUN/Creatinine Ratio 11 (6-26); Blood Urea Nitrogen 10 mg/dL (7-20); Calcium 9.9 mg/dL (8.6-10.8); Carbon Dioxide 36 mEq/L (19-29); Chloride 92 mEq/L (98-109); Glucose 186 mg/dL (70-99); Osmolality,Calculated 288 (280-300); Potassium 3.8 mEq/L (3.5-4.5); Sodium 137 mEq/L (136-145); eGFR For African Americans > 60 (> 60); eGFR For Non-African Americans > 60 (> 60)
[2017-02-21 17:55] LABS: Bilirubin,Urine Negative (Negative); Blood,Urine Trace (Negative); Clarity,Urine Cloudy (Clear); Color,Urine Yellow (Yellow); Glucose,Urine (UA) 250 mg/dL (Normal); Ketones,Urine Negative (Negative); Leukocyte Esterase,Urine Negative (Negative); Nitrite,Urine Negative (Negative); PH,Urine 6.5 pH Units (5.0-8.0); Protein,Urine 100 mg/dL (Neg-Trace); Specific Gravity,Urine 1.017 (1.010-1.025); Urobilinogen,Urine Normal (Normal)
[2017-02-21 17:56] LABS: Bacteria,Urine None Seen per hpf (None-Few); Squamous Epithelial Cell,Urine Many per lpf (None-Few)
[2017-02-21 18:53] LABS: ABG Base Excess 6 mEq/L (-2 to 3); ABG HCO3 39 mEq/L (21-27); ABG Oxygen Saturation 96 % (95-98); ABG PCO2 115 mmHg (35-45); ABG PH 7.13 pH Units (7.32-7.45); ABG PO2 110 mmHg (85-104); ABG TCO2 42 mEq/L (20-26); Blood Gas PEEP 4 cm H2O; Blood Gas Pressure Support 18 cm H2O; Blood Gas Respiration Rate 8
[2017-02-21] MEDS ORDERED: Sennosides/Docusate Sodium TABLET PO PRN (20:43)
[2017-02-21] MEDS ORDERED: Loratadine 10 MG TABLET PO PRN (20:43)
[2017-02-21] MEDS ORDERED: NON-FORMULARY MEDICATION 1 EACH EACH (Fluticasone Propionate [Flovent Hfa] 1 PUFF) IH PRN (20:43)
[2017-02-21 20:57] LABS: Creatine Kinase 55 Units/L (29-168)
--- NOTE | 2017-02-21 21:29 | Internal Med History&Physical ---
Date of Encounter: 02/21/17 Time of Encounter: 21:26 Assessment and Plan (1) Acute respiratory failure with hypoxia and hypercapnia Current visit: Yes Status: Acute h/o chronic respiratory failure with hypoxia and hypercapnia. Non-compliant with bipap at home. Extremely hypercapneic upon admission with a CO2 135. Transfer to higher acuity floor 2N Continue bipap support redraw ABG at 1000 start solumedrol 60mg IV Q6hrs bronchodilator support; duonebs q4hr tory, albuterol q1hr prn Monitor spo2, goal for spo2 greater than 90%, continuous tele Start levaquin 750mg QD CBC, BMP in the morning. (2) COPD exacerbation Current visit: Yes Status: Acute see plan above (3) HTN (hypertension) Current visit: Yes Status: Chronic h/o HTN, continue norvasc, lisinopril, and BB. Hemodynamically stable at this time. Qualifiers: Hypertension type: essential hypertension Qualified Code(s): I10 - Essential (primary) hypertension (4) Hyperlipemia Current visit: Yes Status: Chronic H/o, continue statin Qualifiers: Hyperlipidemia type: unspecified Qualified Code(s): E78.5 - Hyperlipidemia , unspecified (5) Anemia Current visit: Yes Status: Chronic H/O chronic anemia, improved from prior admission. Continue Home dose of iron, b vitamin and folate. CBC in the morning Qualifiers: Anemia type: iron deficiency Iron deficiency anemia type: unspecified iron deficiency Qualified Code(s): D50.9 - Iron deficiency anemia, unspecified (6) Altered mental status Current visit: Yes Status: Acute AMS in the setting of hypercapnia, and hypoxia, alert to self, situation and place. Continue to monitor mental status. Mental status should improve with correction of acidosis, hypoxia, and hypercapnia. Qualifiers: Coma depth: unspecified coma depth Coma timing: unspecified coma timing Qualified Code(s): R40.20 - Unspecified coma (7) CHF (congestive heart failure) Current visit: Yes Status: Acute h/o chf, does not appear to be fluid overloaded at this time. Qualifiers: Congestive heart failure type: unspecified congestive heart failure type Congestive heart failure chronicity: chronic Qualified Code(s): I50.9 - Heart failure, unspecified (8) DVT prophylaxis Current visit: Yes Status: Acute lovenox 40mg SC DAILY Internal Medicine - H&P: HPI Chief complaint: RESPIRATORY FAILURE Admitted From: Home Plans for Post Hospital Care: Home History of present illness: Ms. Vaughn is a 57 year old female with a PMH of [facility] today and respiratory failure. Son mentions that the patient was having difficulty breathing and just passed out of the car. He called EMS and upon arrival to the scene the patients as PO2. Patient was immediately placed on BiPAP where saturations improved to the 80s. She has had multiple admissions for acute on chronic respiratory failure with hypercapnia and was also being treated for pneumonia during her last admission. Patient has leukocytosis and respiratory acidosis. Chest x-ray reveals right upper lobe opacity which is seen on prior imaging that is somewhat improved. Past Med Surg Social Fam HX - Past Medical History Medical history: CHF, COPD, hyperlipidemia, hypertension, myocardial infarction Psychiatric history: anxiety - Past Surgical History Surgical History: appendectomy, coronary bypass (CABG) - Social History Smoking Status: Former smoker Smokeless Tobacco Status: No Alcohol use: none Drug use: none - Family History Father Living Status: Hx Family Cardiac Disorders: Yes (Father of ID) Internal Medicine - H&P: Meds Aspirin Enteric Coated [Aspirin EC] 81 mg PO DAILY #0 12/13/14 [History] Ferrous Sulfate 325 mg PO DAILY #0 12/13/14 [History] Folic Acid 1 mg PO DAILY #0 12/13/14 [History] Nitroglycerin 0.4 mg SL Q5M PRN #0 12/13/14 [History] Omeprazole [PriLOSEC] 20 mg PO BID #0 12/13/14 [History] Thiamine (B-1) [Vitamin B-1] 100 mg PO DAILY #0 12/13/14 [History] Metoprolol XL (24 HR) Succ [Toprol XL] 25 mg PO DAILY 01/17/15 [History] Multivitamin/Iron/Folic Acid [Centrum Complete Multivit Tab] 1 each PO DAILY [History] Cetirizine HCl [All Day Allergy] 10 mg PO DAILY PRN 09/15/16 [History] Fluticasone Propionate [Flovent Hfa] 1 puff IH BID PRN 09/15/16 [History] Ipratropium/Albuterol Sulfate [Combivent Respimat Inhal [place]] 1 puff IH QID PRN 05/14/17 [History] Sennosides/Docusate Sodium [Senna-S Tablet] 1 each PO BID PRN 09/15/16 [History] Simvastatin [Zocor] 10 mg PO HS 09/15/16 [History] Magnesium Oxide [Mgo] 400 mg PO DAILY 09/16/16 [History] Albuterol Sulfate [Albuterol Inhaler] 1 puff IH Q4H PRN #3 inhaler 09/19/16 [Rx] GuaiFENesin ER [Mucinex] 600 mg PO BID 10 Days tbbp.12hr 09/19/16 [Rx] Ferrous Sulfate 325 mg PO TIDWM tablet 09/28/16 [Rx] Ipratropium/Albuterol Neb [Duoneb] 3 ml IH [id number] PRN #0 inhsol 09/28/16 [Rx] Levofloxacin [Levaquin] 750 mg PO DAILY #4 tablet 09/28/16 [Rx] Lisinopril [Zestril] 5 mg PO DAILY tablet 09/28/16 [Rx] OxyCODONE/APAP 7.5/325 [Percocet 7.5/325 MG] 1 each PO Q6HR PRN #20 tablet 09/28 [Rx] amLODIPine [Norvasc] 5 mg PO DAILY tablet 09/28/16 [Rx] predniSONE [PredniSONE] 40 mg PO DAILY #2 tablet 09/28/16 [Rx] 3 Allergy/AdvReac Type Severity Reaction Status Date / Time No Known Allergies Allergy Verified 09/15/16 17:19 ROS unobtainable: due to mental status All Systems PM: A 10-system review of systems was performed and is negative for pertinent findings except as documented above in the HPI. - Constitutional Vitals: Temp Pulse Resp BP Pulse Ox 98.3 F 114 24 111/77 95 02/21/17 20:27 02/21/17 20:27 02/21/17 20:27 02/21/17 20:27 02/21/17 20:27 General appearance: Present: A&O X 2 Exam: The patient is alert to verbal stimuli, oriented to self and place and situation but unable to answer any additional questions. She remains fairly lethargic arousable for only a minute or so at a time, is on BiPAP - Head Head exam: Present: atraumatic, normocephalic - Neck Neck exam general surgery: Present: supple, trachea midline. Absent: lymphadenopathy - Respiratory Respiratory exam: Present: decreased breath sounds, respiratory distress, wheezes (Bilateral posterior bases), tachypnea. Absent: chest wall tenderness, rales, rhonchi - Cardiovascular Cardiovascular exam: Present: RRR, +S1, +S2, tachycardia. Absent: diastolic murmur, gallop, rubs, systolic murmur - GI/Abdominal GI/Abdominal exam: Present: normal bowel sounds, soft, no peritoneal signs. Absent: distended, tenderness - Extremities Exam Extremities exam: Present: warm, radial pulses palpable and symmetrical. Absent : calf tenderness, cyanotic, pedal edema - Neurological Exam Neurological exam: Present: altered - Psychiatric Additional comments: confused, and lethargic Internal Med - H&P Results - Labs CBC & Chem 7: 02/21/17 17:13 02/21/17 17:13 - ABG Interpretation ABG results: 02/21/17 18:51 ABG pH 7.13 L* ABG pCO2 115 H* D ABG pO2 110 H D ABG HCO3 39 H ABG Total CO2 42 H ABG O2 Saturation 96 ABG Base Excess 6 H - Diagnostic Studies Chest x-ray Status: image reviewed by me Additional comments: No radiographic evidence of acute cardiopulmonary disease. Unchanged right upper lobe opacity. Please see previous chest CT report from
[2017-02-21] MEDS ORDERED: Naloxone 0.4 MG/ML INJ IVP PRN ×2 (21:53→22:39)
[2017-02-21] MEDS: Ipratropium/Albuterol Neb 3 ML IH SCH (22:48)
[2017-02-21 23:09] LABS: ABG Base Excess 5 mEq/L (-2 to 3); ABG HCO3 36 mEq/L (21-27); ABG Oxygen Saturation 99 % (95-98); ABG PCO2 95 mmHg (35-45); ABG PH 7.19 pH Units (7.32-7.45); ABG PO2 177 mmHg (85-104); ABG TCO2 39 mEq/L (20-26)
[2017-02-21] MEDS: Piperacillin/Tazobactam 3.375 GM in D5% in Water (Mini-Bag+) 100 ML IVPB SCH (23:33)
[2017-02-21] MEDS: methylPREDNISolone 125 MG/2 ML VIAL IVP SCH (23:33)
[2017-02-22] MEDS ORDERED: Ipratropium/Albuterol Neb 3 ML IH SCH
[2017-02-22] MEDS ORDERED: *HR* LORazepam 2 MG/ML VIAL IVP ONE (00:17)
[2017-02-22] MEDS: Ipratropium/Albuterol Neb 3 ML IH SCH ×7 (00:50→20:21)
[2017-02-22] MEDS: Acetaminophen 325 MG TABLET PO PRN ×2 (01:15→08:33)
--- NOTE | 2017-02-22 04:22 | Event Note ---
Date of Encounter: 02/22/17 Time of Encounter: 04:21 Patient seen and examined with nurse practitioner. Hyper Respiratory failure and acute COPD exacerbation. Repeat blood gas. continue BiPAP support. This encounter occurred on 02/21/2017
[2017-02-22] MEDS: methylPREDNISolone 125 MG/2 ML VIAL IVP SCH ×4 (06:27→23:32)
[2017-02-22] MEDS: *HR* Enoxaparin 40 MG/0.4 ML SYRINGE SQ SCH (06:27)
[2017-02-22 06:28] LABS: Basophils % 0.2 %; Hematocrit 29.1 % (35.3-44.9); Immature Granulocytes % 0.8 % (0-4); Lymphocytes # 0.4 K/mcL (0.6-4.6); Lymphocytes % 8.5 %; Mean Corpuscular HGB Conc 30.2 g/dL (31.6-35.5); Mean Corpuscular Hemoglobin 28.7 pg (28.0-33.3); Mean Corpuscular Volume 94.8 fL (83.0-100.0); Mean Platelet Volume 12.1 fL (9.4-12.4); Monocytes # 0.1 K/mcL (0.0-1.3); Monocytes % 1.8 %; Neutrophils # 4.4 K/mcL (1.6-8.9); Platelet Count 130 K/mcL (140-400); Red Blood Count 3.07 M/mcL (3.82-4.97); Red Cell Distribution Width 12.6 % (11.5-14.5); Segmented Neutrophils % 88.7 %
[2017-02-22 06:29] LABS: Hemoglobin 8.8 g/dL (11.5-15.4)
[2017-02-22 06:46] LABS: BUN/Creatinine Ratio 15 (6-26); Blood Urea Nitrogen 11 mg/dL (7-20); Calcium 9.3 mg/dL (8.6-10.8); Carbon Dioxide 33 mEq/L (19-29); Chloride 96 mEq/L (98-109); Glucose 112 mg/dL (70-99); Magnesium 1.4 mg/dL (1.6-2.6); Osmolality,Calculated 284 (280-300); Potassium 4.3 mEq/L (3.5-4.5); Sodium 137 mEq/L (136-145); eGFR For African Americans > 60 (> 60); eGFR For Non-African Americans > 60 (> 60)
[2017-02-22] MEDS: Beclomethasone 80mcg MDI IH SCH ×2 (07:48→20:21)
[2017-02-22] MEDS ORDERED: Magnesium Sulfate 2 GM in D5% in Water 100 ML IVPB ONE (08:13)
[2017-02-22] MEDS: Aspirin Enteric Coated 81 MG Tablet PO SCH (08:21)
[2017-02-22] MEDS: Folic Acid 1 MG TABLET PO SCH (08:21)
[2017-02-22] MEDS: Thiamine (B-1) 100 MG TABLET PO SCH (08:21)
[2017-02-22] MEDS: amLODIPine 5 MG TABLET PO SCH (08:21)
[2017-02-22] MEDS: Magnesium Oxide 400 MG TABLET PO SCH (08:21)
[2017-02-22] MEDS: Piperacillin/Tazobactam 3.375 GM in D5% in Water (Mini-Bag+) 100 ML IVPB SCH ×3 (08:23→23:32)
[2017-02-22] MEDS ORDERED: predniSONE 20 MG TABLET PO SCH (09:00)
[2017-02-22] MEDS ORDERED: Metoprolol XL (24 HR) Succ 25 MG TAB.ER.24H PO SCH (09:00)
--- NOTE | 2017-02-22 10:27 | Internal Med Progress Note ---
Date of Encounter: 02/22/17 Time of Encounter: 10:23 - Assessment and plan (1) Acute respiratory failure with hypoxia and hypercapnia Current Visit: Yes Status: Acute Assessment and plan: h/o chronic respiratory failure with hypoxia and hypercapnia. Non-compliant with bipap at home. Extremely hypercapneic upon admission with a CO2 135. ABG done at 1000 this a., showed improvement, PCO2 now 73. PH 7.3 patient is clinically improved and chest is clear Continue solumedrol for the next 24 hrs Change to prednisone po from a.m Continue zosyn for the next 24 hrs and switch to doxycycline a.m, patient was taking levquin at home Educated about complaince Patient may be fed (2) Acute exacerbation of chronic obstructive airways disease Current Visit: Yes Status: Acute Assessment and plan: As above (3) Encephalopathy Current Visit: Yes Status: Resolved Assessment and plan: Awake, alert, and oriented X2 Possibly secondary to CO2 narcosis (4) HTN (hypertension) Current Visit: Yes Status: Chronic Assessment and plan: Continue home meds Qualifiers: Hypertension type: essential hypertension Qualified Code(s): I10 - Essential (primary) hypertension (5) Hyperlipemia Current Visit: Yes Status: Chronic Assessment and plan: Continue home meds Qualifiers: Hyperlipidemia type: unspecified Qualified Code(s): E78.5 - Hyperlipidemia , unspecified (6) CHF (congestive heart failure) Current Visit: Yes Status: Chronic Assessment and plan: Stress test from 09/2016 showed EF of 70% Euvolemic at this time Qualifiers: Congestive heart failure type: diastolic Congestive heart failure chronicity: chronic Qualified Code(s): I50.32 - Chronic diastolic (congestive ) heart failure (7) Hypomagnesemia Current Visit: Yes Status: Acute Assessment and plan: Replaced, repeat Mag level with a.m labs (8) Metabolic alkalosis with respiratory acidosis Current Visit: Yes Status: Chronic Assessment and plan: Chronic, secodnary to resp acidosis (9) Anemia Current Visit: Yes Status: Chronic Assessment and plan: H/O chronic anemia, improved from prior admission. Continue Home dose of iron, b vitamin and folate Qualifiers: Anemia type: iron deficiency Iron deficiency anemia type: unspecified iron deficiency Qualified Code(s): D50.9 - Iron deficiency anemia, unspecified - Subjective Interval history: Seen and evaluated at bedside 57 YO F with COPD, O2 and BIPAP dependent, admitted for altered mental status possibly secondary to acute on chronic hyperapneic respiratory failure and respiratory acidosis She is full code Her chief complain is pain in her R foot which she sprained - Constitutional Vitals: Temp Pulse Resp BP Pulse Ox 98.0 F 85 18 129/83 94 02/22/17 07:33 02/22/17 07:33 02/22/17 07:45 02/22/17 07:45 02/22/17 07:45 General appearance: Present: disheveled, A&O X 2 - Head Head exam: Present: atraumatic, normocephalic - Eye Eye exam: Present: PERRL, conjuntiva pink, sclera anicteric Pupils: Present: PERRL - Neck Neck exam general surgery: Present: supple, trachea midline. Absent: lymphadenopathy - Respiratory Respiratory exam: Present: CTAB. Absent: accessory muscle use, rales, rhonchi, wheezes - Cardiovascular Cardiovascular exam: Present: RRR, +S1, +S2. Absent: diastolic murmur, gallop, rubs, systolic murmur - GI/Abdominal GI/Abdominal exam: Present: normal bowel sounds, soft, no peritoneal signs. Absent: distended, tenderness - Extremities Exam Extremities exam: Present: warm, radial pulses palpable and symmetrical. Absent : calf tenderness, cyanotic, pedal edema Additional comments: R foot swollen and tender, with some bruising, distal circulation on toes is intact - Neurological Exam Neurological exam: Present: alert, CN II-XII intact, no focal deficits. Absent : oriented X3, pronater drift, facial droop, speech deficit - Skin Skin exam: Present: dry, intact Internal Medicine: Result - Labs CBC & Chem 7: 02/22/17 06:01 02/22/17 06:01 Labs: Short CBC 02/22/17 Range/Units 06:01 WBC 5.0 D (4.3-11.1) K/mcL Hgb 8.8 L D (11.5-15.4) g/dL Hct 29.1 L (35.3-44.9) % Plt Count 130 L (140-400) K/mcL Neutrophils # 4.4 (1.6-8.9) K/mcL BMP 02/22/17 06:01 Sodium 137 Potassium 4.3 Chloride 96 L Carbon Dioxide 33 H BUN 11 Creatinine 0.71 Glucose 112 H Calcium 9.3 - ABG Interpretation ABG results: ABG ABG pH 7.19 pH Units (7.32-7.45) L* 02/21/17 23:03 ABG pCO2 95 mmHg (35-45) H* D 02/21/17 23:03 ABG pO2 177 mmHg (85-104) H D 02/21/17 23:03 ABG O2 Saturation 99 % (95-98) H 02/21/17 23:03 Consult Discharge Plan - Plan Referrals: NONE,PCP [Primary Care Provider] -
[2017-02-22 10:59] LABS: ABG Base Excess 9 mEq/L (-2 to 3); ABG HCO3 37 mEq/L (21-27); ABG Oxygen Saturation 100 % (95-98); ABG PCO2 73 mmHg (35-45); ABG PH 7.32 pH Units (7.32-7.45); ABG PO2 194 mmHg (85-104); ABG TCO2 39 mEq/L (20-26); Blood Gas Modality NCPAP
[2017-02-22] MEDS ORDERED: Acetaminophen 325 MG TABLET PO PRN (11:24)
[2017-02-22] MEDS: *HR* OxyCODONE/APAP 5/325 TABLET PO PRN ×2 (12:24→21:01)
[2017-02-23] MEDS: Ipratropium/Albuterol Neb 3 ML IH SCH ×7 (00:09→23:28)
[2017-02-23] MEDS: *HR* OxyCODONE/APAP 5/325 TABLET PO PRN ×3 (05:01→21:15)
[2017-02-23] MEDS: *HR* Enoxaparin 40 MG/0.4 ML SYRINGE SQ SCH (05:02)
[2017-02-23 06:13] LABS: Hematocrit 27.8 % (35.3-44.9); Hemoglobin 8.7 g/dL (11.5-15.4); Immature Granulocytes % 0.4 % (0-4); Lymphocytes # 0.3 K/mcL (0.6-4.6); Lymphocytes % 5.7 %; Mean Corpuscular HGB Conc 31.3 g/dL (31.6-35.5); Mean Corpuscular Hemoglobin 29.2 pg (28.0-33.3); Mean Corpuscular Volume 93.3 fL (83.0-100.0); Mean Platelet Volume 12.3 fL (9.4-12.4); Monocytes # 0.2 K/mcL (0.0-1.3); Monocytes % 4.5 %; Neutrophils # 4.7 K/mcL (1.6-8.9); Platelet Count 142 K/mcL (140-400); Red Blood Count 2.98 M/mcL (3.82-4.97); Red Cell Distribution Width 12.4 % (11.5-14.5); Segmented Neutrophils % 89.4 %
[2017-02-23 06:18] LABS: VBG HCO3 43 mEq/L (21-27); VBG PCO2 69 mmHg (41-51); VBG PH 7.41 pH Units (7.32-7.42); VBG PO2 198 mmHg (25-50)
[2017-02-23 06:25] LABS: BUN/Creatinine Ratio 20 (6-26); Blood Urea Nitrogen 16 mg/dL (7-20); Calcium 9.3 mg/dL (8.6-10.8); Chloride 90 mEq/L (98-109); Glucose 155 mg/dL (70-99); Magnesium 1.9 mg/dL (1.6-2.6); Osmolality,Calculated 290 (280-300); Potassium 3.6 mEq/L (3.5-4.5); Sodium 138 mEq/L (136-145); eGFR For African Americans > 60 (> 60); eGFR For Non-African Americans > 60 (> 60)
[2017-02-23 06:31] LABS: Carbon Dioxide 40 mEq/L (19-29)
[2017-02-23] MEDS: Beclomethasone 80mcg MDI IH SCH ×2 (07:43→20:11)
[2017-02-23] MEDS: predniSONE 20 MG TABLET PO SCH (08:17)
[2017-02-23] MEDS: Doxycycline 100 MG CAPSULE PO SCH ×2 (08:17→21:16)
[2017-02-23] MEDS: Thiamine (B-1) 100 MG TABLET PO SCH (08:18)
[2017-02-23] MEDS: Folic Acid 1 MG TABLET PO SCH (08:18)
[2017-02-23] MEDS: Magnesium Oxide 400 MG TABLET PO SCH (08:18)
[2017-02-23] MEDS: Aspirin Enteric Coated 81 MG Tablet PO SCH (08:18)
[2017-02-23] MEDS: amLODIPine 5 MG TABLET PO SCH (08:18)
--- NOTE | 2017-02-23 08:35 | Internal Med Progress Note ---
Date of Encounter: 02/23/17 Time of Encounter: 08:34 - Assessment and plan (1) Acute respiratory failure with hypoxia and hypercapnia Current Visit: Yes Status: Acute Assessment and plan: h/o chronic respiratory failure with hypoxia and hypercapnia. Non-compliant with bipap at home. Extremely hypercapneic upon admission with a CO2 135. ABG and VBG shows improvement patient is clinically improved and chest is clear Continue prednsione, nebs, docycycline (2) Acute exacerbation of chronic obstructive airways disease Current Visit: Yes Status: Acute Assessment and plan: As above (3) Encephalopathy Current Visit: Yes Status: Resolved Assessment and plan: Awake, alert, and oriented X2 Possibly secondary to CO2 narcosis (4) HTN (hypertension) Current Visit: Yes Status: Chronic Assessment and plan: Continue home meds Qualifiers: Hypertension type: essential hypertension Qualified Code(s): I10 - Essential (primary) hypertension (5) Hyperlipemia Current Visit: Yes Status: Chronic Assessment and plan: Continue home meds Qualifiers: Hyperlipidemia type: unspecified Qualified Code(s): E78.5 - Hyperlipidemia , unspecified (6) CHF (congestive heart failure) Current Visit: Yes Status: Chronic Assessment and plan: Stress test from 09/2016 showed EF of 70% Euvolemic at this time Qualifiers: Congestive heart failure type: diastolic Congestive heart failure chronicity: chronic Qualified Code(s): I50.32 - Chronic diastolic (congestive ) heart failure (7) Hypomagnesemia Current Visit: Yes Status: Resolved Assessment and plan: Replaced, Mag WNL this am (8) Metabolic alkalosis with respiratory acidosis Current Visit: Yes Status: Chronic Assessment and plan: Chronic, secodnary to resp acidosis (9) Anemia Current Visit: Yes Status: Chronic Assessment and plan: H/O chronic anemia, improved from prior admission. Continue Home dose of iron, b vitamin and folate Qualifiers: Anemia type: iron deficiency Iron deficiency anemia type: unspecified iron deficiency Qualified Code(s): D50.9 - Iron deficiency anemia, unspecified (10) Foot pain, right Current Visit: Yes Status: Acute Assessment and plan: trauma related R foot with some echymoses and swelling Xray showed no fractures, continue NSAIDS/Tylenol - Subjective Interval history: Seen and evaluated at bedside 57 YO F with COPD, O2 and BIPAP dependent, admitted for altered mental status possibly secondary to acute on chronic hyperapneic respiratory failure and respiratory acidosis Today she denies new complains, she is improving on BIPAP HS - Constitutional Vitals: Temp Pulse Resp BP Pulse Ox 98.4 F 96 16 125/73 100 02/23/17 06:48 02/23/17 06:48 02/23/17 07:46 02/23/17 06:48 02/23/17 07:46 General appearance: Present: A&O X 2, pleasant, no acute distress - Head Head exam: Present: atraumatic, normocephalic - Eye Eye exam: Present: PERRL, conjuntiva pink, sclera anicteric Pupils: Present: PERRL - Neck Neck exam general surgery: Present: supple, trachea midline. Absent: lymphadenopathy - Respiratory Respiratory exam: Present: CTAB. Absent: accessory muscle use, rales, rhonchi, wheezes - Cardiovascular Cardiovascular exam: Present: RRR, +S1, +S2. Absent: diastolic murmur, gallop, rubs, systolic murmur - GI/Abdominal GI/Abdominal exam: Present: normal bowel sounds, soft, no peritoneal signs. Absent: distended, tenderness - Extremities Exam Extremities exam: Present: warm, radial pulses palpable and symmetrical. Absent : calf tenderness, cyanotic, pedal edema Additional comments: R foot swollen and tender, with some bruising, distal circulation on toes is intact - Neurological Exam Neurological exam: Present: alert, CN II-XII intact, no focal deficits. Absent : oriented X3, pronater drift, facial droop, speech deficit - Skin Skin exam: Present: dry, intact Internal Medicine: Result - Labs CBC & Chem 7: 02/23/17 05:26 02/23/17 05:26 Labs: Short CBC 02/23/17 Range/Units 05:26 WBC 5.3 (4.3-11.1) K/mcL Hgb 8.7 L (11.5-15.4) g/dL Hct 27.8 L (35.3-44.9) % Plt Count 142 (140-400) K/mcL Neutrophils # 4.7 (1.6-8.9) K/mcL BMP 02/23/17 05:26 Sodium 138 Potassium 3.6 Chloride 90 L Carbon Dioxide 40 H* BUN 16 Creatinine 0.80 Glucose 155 H Calcium 9.3 - ABG Interpretation ABG results: ABG ABG pH 7.32 pH Units (7.32-7.45) 02/22/17 10:48 ABG pCO2 73 mmHg (35-45) H* 02/22/17 10:48 ABG pO2 194 mmHg (85-104) H 02/22/17 10:48 ABG O2 Saturation 100 % (95-98) H 02/22/17 10:48 Consult Discharge Plan - Plan Referrals: NONE,PCP [Primary Care Provider] -
[2017-02-23] MEDS: Ibuprofen 400 MG TABLET PO PRN ×2 (09:12→17:42)
[2017-02-23] MEDS ORDERED: Levofloxacin 750 MG/150 ML 750 MG/150 ML BAG IVPB SCH (17:00)
--- NOTE | 2017-02-23 18:24 | Electrocardiograph Report ---
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
[2017-02-24 01:30] LABS: Hematocrit 29.4 % (35.3-44.9); Hemoglobin 9.2 g/dL (11.5-15.4); Immature Granulocytes % 0.1 % (0-4); Lymphocytes # 0.9 K/mcL (0.6-4.6); Lymphocytes % 12.2 %; Mean Corpuscular HGB Conc 31.3 g/dL (31.6-35.5); Mean Corpuscular Hemoglobin 29.2 pg (28.0-33.3); Mean Corpuscular Volume 93.3 fL (83.0-100.0); Mean Platelet Volume 11.5 fL (9.4-12.4); Monocytes # 0.7 K/mcL (0.0-1.3); Neutrophils # 5.7 K/mcL (1.6-8.9); Platelet Count 167 K/mcL (140-400); Red Blood Count 3.15 M/mcL (3.82-4.97); Red Cell Distribution Width 12.6 % (11.5-14.5); Segmented Neutrophils % 78.7 %
[2017-02-24 01:41] LABS: BUN/Creatinine Ratio 22 (6-26); Blood Urea Nitrogen 21 mg/dL (7-20); Calcium 9.2 mg/dL (8.6-10.8); Carbon Dioxide 38 mEq/L (19-29); Chloride 93 mEq/L (98-109); Glucose 170 mg/dL (70-99); Osmolality,Calculated 297 (280-300); Potassium 3.2 mEq/L (3.5-4.5); Sodium 140 mEq/L (136-145); eGFR For African Americans > 60 (> 60); eGFR For Non-African Americans > 60 (> 60)
[2017-02-24] MEDS: Ipratropium/Albuterol Neb 3 ML IH SCH ×4 (04:20→16:03)
[2017-02-24] MEDS: *HR* OxyCODONE/APAP 5/325 TABLET PO PRN ×2 (05:17→13:31)
[2017-02-24] MEDS: *HR* Enoxaparin 40 MG/0.4 ML SYRINGE SQ SCH (05:18)
[2017-02-24] MEDS: Beclomethasone 80mcg MDI IH SCH (07:42)
[2017-02-24] MEDS: Aspirin Enteric Coated 81 MG Tablet PO SCH (09:21)
[2017-02-24] MEDS: Magnesium Oxide 400 MG TABLET PO SCH (09:21)
[2017-02-24] MEDS: predniSONE 20 MG TABLET PO SCH (09:21)
[2017-02-24] MEDS: Thiamine (B-1) 100 MG TABLET PO SCH (09:21)
[2017-02-24] MEDS: Doxycycline 100 MG CAPSULE PO SCH (09:21)
[2017-02-24] MEDS: amLODIPine 5 MG TABLET PO SCH (09:21)
[2017-02-24] MEDS: Ibuprofen 400 MG TABLET PO PRN (09:22)
[2017-02-24] MEDS: Folic Acid 1 MG TABLET PO SCH (09:22)
--- NOTE | 2017-02-24 09:36 | Internal Med Progress Note ---
Date of Encounter: 02/24/17 Time of Encounter: 09:36 - Assessment and plan (1) Acute respiratory failure with hypoxia and hypercapnia Current Visit: Yes Status: Acute (2) Acute exacerbation of chronic obstructive airways disease Current Visit: Yes Status: Acute (3) Encephalopathy Current Visit: Yes Status: Resolved (4) HTN (hypertension) Current Visit: Yes Status: Chronic Qualifiers: Hypertension type: essential hypertension Qualified Code(s): I10 - Essential (primary) hypertension (5) Hyperlipemia Current Visit: Yes Status: Chronic Qualifiers: Hyperlipidemia type: unspecified Qualified Code(s): E78.5 - Hyperlipidemia , unspecified (6) CHF (congestive heart failure) Current Visit: Yes Status: Chronic Qualifiers: Congestive heart failure type: diastolic Congestive heart failure chronicity: chronic Qualified Code(s): I50.32 - Chronic diastolic (congestive ) heart failure (7) Hypomagnesemia Current Visit: Yes Status: Resolved (8) Metabolic alkalosis with respiratory acidosis Current Visit: Yes Status: Chronic (9) Anemia Current Visit: Yes Status: Chronic Qualifiers: Anemia type: iron deficiency Iron deficiency anemia type: unspecified iron deficiency Qualified Code(s): D50.9 - Iron deficiency anemia, unspecified (10) Foot pain, right Current Visit: Yes Status: Acute Assessment and plan: trauma related R foot with some echymoses and swelling Initial Xray showed no fractures patient continues to complain of pain and is unable to bear weight on that limb D.C Motrin, continue tylenol repeat Foot Xray, 2 views (11) Hypokalemia Current Visit: Yes Status: Acute Assessment and plan: Replaced, continue to monitor - Subjective Interval history: Seen and evaluated at bedside 57 YO F with COPD, O2 and BIPAP dependent, admitted for altered mental status possibly secondary to acute on chronic hyperapneic respiratory failure and respiratory acidosis In the early hours of the day, she had an episode of tachycardia with chest pain , HR said to be in the 140s, responded to lopressor IV. Initial troponin negative, repeat is pending EKG reviewed this a.m, done during thr episode, VR was 98/min, no ST segment or T wave changes Patient seen at bedside this morning, continue to complain of chest soreness, denies pressure like pain. She is on telemetry - Constitutional Vitals: Temp Pulse Resp BP Pulse Ox 97.9 F 81 16 109/73 100 02/24/17 07:42 02/24/17 07:42 02/24/17 07:44 02/24/17 07:42 02/24/17 07:44 General appearance: Present: A&O X 2, pleasant, no acute distress - Head Head exam: Present: atraumatic, normocephalic - Eye Eye exam: Present: PERRL, conjuntiva pink, sclera anicteric Pupils: Present: PERRL - Neck Neck exam general surgery: Present: supple, trachea midline. Absent: lymphadenopathy - Respiratory Respiratory exam: Present: CTAB. Absent: accessory muscle use, rales, rhonchi, wheezes - Cardiovascular Cardiovascular exam: Present: RRR, +S1, +S2. Absent: diastolic murmur, gallop, rubs, systolic murmur - GI/Abdominal GI/Abdominal exam: Present: normal bowel sounds, soft, no peritoneal signs. Absent: distended, tenderness - Extremities Exam Extremities exam: Present: warm, radial pulses palpable and symmetrical. Absent : calf tenderness, cyanotic, pedal edema - Neurological Exam Neurological exam: Present: alert, CN II-XII intact, oriented X3, no focal deficits. Absent: pronater drift, facial droop, speech deficit - Skin Skin exam: Present: dry, intact Internal Medicine: Result - Labs CBC & Chem 7: 02/24/17 01:21 02/24/17 01:21 Labs: Short CBC 02/24/17 Range/Units 01:21 WBC 7.2 (4.3-11.1) K/mcL Hgb 9.2 L (11.5-15.4) g/dL Hct 29.4 L (35.3-44.9) % Plt Count 167 (140-400) K/mcL Neutrophils # 5.7 (1.6-8.9) K/mcL BMP 02/24/17 01:21 Sodium 140 Potassium 3.2 L Chloride 93 L Carbon Dioxide 38 H BUN 21 H Creatinine 0.94 Glucose 170 H Calcium 9.2 Cardiac Enzymes 02/24/17 02/24/17 Range/Units 01:21 06:58 Troponin I 0.02 0.01 (0-0.03) ng/mL - ABG Interpretation ABG results: ABG ABG pH 7.32 pH Units (7.32-7.45) 02/22/17 10:48 ABG pCO2 73 mmHg (35-45) H* 02/22/17 10:48 ABG pO2 194 mmHg (85-104) H 02/22/17 10:48 ABG O2 Saturation 100 % (95-98) H 02/22/17 10:48 Consult Discharge Plan - Plan Referrals: NONE,PCP [Primary Care Provider] -
[2017-02-24] MEDS ORDERED: Acetaminophen 325 MG TABLET PO PRN (09:37)
--- NOTE | 2017-02-24 12:53 | Discharge Summary ---
Date of Encounter: 02/24/17 Time of Encounter: 09:36 - Discharge Diagnosis (1) Acute respiratory failure with hypoxia and hypercapnia Priority: Primary Status: Resolved (2) Acute exacerbation of chronic obstructive airways disease Priority: Primary Status: Acute (3) Encephalopathy Priority: Primary Status: Resolved (4) HTN (hypertension) Priority: Secondary Status: Chronic Qualifiers: Hypertension type: essential hypertension Qualified Code(s): I10 - Essential (primary) hypertension (5) Hyperlipemia Priority: Secondary Status: Chronic Qualifiers: Hyperlipidemia type: unspecified Qualified Code(s): E78.5 - Hyperlipidemia , unspecified (6) CHF (congestive heart failure) Priority: Secondary Status: Chronic Qualifiers: Congestive heart failure type: diastolic Congestive heart failure chronicity: chronic Qualified Code(s): I50.32 - Chronic diastolic (congestive ) heart failure (7) Hypomagnesemia Priority: Primary Status: Resolved (8) Metabolic alkalosis with respiratory acidosis Priority: Secondary Status: Chronic (9) Anemia Priority: Secondary Status: Chronic Qualifiers: Anemia type: iron deficiency Iron deficiency anemia type: unspecified iron deficiency Qualified Code(s): D50.9 - Iron deficiency anemia, unspecified (10) Foot pain, right Priority: Primary Status: Acute (11) Hypokalemia Priority: Primary Status: Acute - Discharge Medications Home Medications: Aspirin Enteric Coated [Aspirin EC] 81 mg PO DAILY #0 12/13/14 [History] Folic Acid 1 mg PO DAILY #0 12/13/14 [History] Nitroglycerin 0.4 mg SL Q5M PRN #0 12/13/14 [History] Omeprazole [PriLOSEC] 20 mg PO BID #0 12/13/14 [History] Thiamine (B-1) [Vitamin B-1] 100 mg PO DAILY #0 12/13/14 [History] Multivitamin/Iron/Folic Acid [Centrum Complete Multivit Tab] 1 each PO DAILY [History] Cetirizine HCl [All Day Allergy] 10 mg PO DAILY PRN 09/15/16 [History] Fluticasone Propionate [Flovent Hfa] 1 puff IH BID PRN 09/15/16 [History] Ipratropium/Albuterol Sulfate [Combivent Respimat Inhal [place]] 1 puff IH QID PRN 09/15/16 [History] Sennosides/Docusate Sodium [Senna-S Tablet] 1 tab PO BID PRN 09/15/16 [History] Simvastatin [Zocor] 10 mg PO HS 09/15/16 [History] Magnesium Oxide [Mgo] 400 mg PO DAILY 09/16/16 [History] Albuterol Sulfate [Albuterol Inhaler] 1 puff IH Q4H PRN #3 inhaler 09/19/16 [Rx] Ferrous Sulfate 325 mg PO TIDWM tablet 09/28/16 [Rx] Ipratropium/Albuterol Neb [Duoneb] 3 ml IH [id number] PRN #0 inhsol 09/28/16 [Rx] Lisinopril [Zestril] 5 mg PO DAILY tablet 09/28/16 [Rx] amLODIPine [Norvasc] 5 mg PO DAILY tablet 09/28/16 [Rx] Budesonide/Formoterol 160/4.5 [Symbicort 160/4.5] 1 puff IH BIDR 02/22/17 [ History] Buspirone HCl [Buspar] 5 mg PO TID 02/22/17 [History] Umeclidinium [place] [Incruse Ellipta] 62.5 mcg IH DAILY 02/22/17 [History] Doxycycline 100 mg PO BID capsule 02/24/17 [Rx] Ipratropium/Albuterol Neb [Duoneb] 3 ml IH [id number] inhsol 02/24/17 [Rx] Metoprolol [Lopressor] 25 mg PO BID tablet 02/24/17 [Rx] predniSONE [PredniSONE] 40 mg PO DAILY tablet 02/24/17 [Rx] Allergies/Adverse Reactions: 3 Allergy/AdvReac Type Severity Reaction Status Date / Time No Known Allergies Allergy Verified 09/15/16 17:19 Procedures/tests Complete & Pending: Procedures Performed prior 72 hours Category Date Time Status EKG [ECG 12 lead ECG] [ECG] Stat Y 02/24/17 00:59 Completed Date of admission: 02/21/17 22:00 Primary care physician: PCP NONE Consults: 02/24/17 12:06 Consult to Classroom Instructional Aide [CONS] Routine Reason for SW Consult: rtn wmp Discharging clinician: Seamus Padilla Anticipated date of discharge: 02/24/17 - Patient Status Disposition: Transfer SNF Condition: Good Functional capacity at discharge: independent ambulation Overall status at discharge: patient is progressing back to baseline - Discharge Instructions Instructions: Heart Failure (DC), Chronic Obstructive Pulmonary Disease (DC) Follow Up With: NONE,PCP [Primary Care Provider] - (patient will follow up with PCP at the [facility]) - Diet and Activity Activity: resume usual activities as tolerated, wear oxygen at all times, other (WEAR BIPAP AT ALL TIMES DURING NAPS AND WHEN ASLEEP) Diet: low fat, low cholesterol, low salt diet Interval History: See below Hospital course: Ms. Vaughn is a 57 year old female admitted from the SNF that they found with altered mental status in the setting of hypercapnia, and hypoxia. Evaluation on admission reveals acute on chronic hypercapnic and hypoxic respiratory failure. The patient has no significant improvement with BiPAP,nebs and steroids. She also received antibiotics. She has a past medical history of COPD, hypertension, CHF. Patient did report a history of right foot trauma, and continues to requests pain medications for same. X-ray done 2 years reveals no acute distress abnormality. Had a stress test in September 2016 that showed an ejection fraction of 70%. She remained euvolemic throughout admission. Is clinically stable to be strands. After the nursing facility to complete at least 7 days of doxycycline already. Home medications have been resumed, except for periods due to the fact that the patient had CO2 narcosis. Plan of care discussed, verbalized understanding. - Time Spent with Patient Total time spent providing and/or coordinating discharge services: Greater than 30 minutes - Constitutional Vitals: Temp Pulse Resp BP Pulse Ox 98.3 F 94 18 106/65 98 02/24/17 11:04 02/24/17 11:04 02/24/17 11:16 02/24/17 11:04 02/24/17 11:16 General appearance: Present: A&O X 2, pleasant, no acute distress - Head Head exam: Present: atraumatic, normocephalic - Eye Eye exam: Present: PERRL, conjuntiva pink, sclera anicteric Pupils: Present: PERRL - Neck Neck exam general surgery: Present: supple, trachea midline. Absent: lymphadenopathy - Respiratory Respiratory exam: Present: CTAB. Absent: accessory muscle use, rales, rhonchi, wheezes - Cardiovascular Cardiovascular exam: Present: RRR, +S1, +S2. Absent: diastolic murmur, gallop, rubs, systolic murmur - GI/Abdominal GI/Abdominal exam: Present: normal bowel sounds, soft, no peritoneal signs. Absent: distended, tenderness - Extremities Exam Extremities exam: Present: warm, radial pulses palpable and symmetrical. Absent : calf tenderness, cyanotic, pedal edema - Neurological Exam Neurological exam: Present: alert, CN II-XII intact, no focal deficits. Absent : pronater drift, facial droop, speech deficit - Skin Skin exam: Present: dry, intact
--- NOTE | 2017-02-24 12:54 | Physician Discharge Referral ---
ExtendedCare Referral Info Transfer To: SNF Provider in Charge: Valerie Provider in Charge after Transfer: PCP Institutional Level of Care: Skilled - Diagnosis (1) Acute respiratory failure with hypoxia and hypercapnia Priority: Primary Status: Resolved (2) Acute exacerbation of chronic obstructive airways disease Priority: Primary Status: Acute (3) Encephalopathy Priority: Primary Status: Resolved (4) HTN (hypertension) Priority: Secondary Status: Chronic (5) Hyperlipemia Priority: Secondary Status: Chronic (6) CHF (congestive heart failure) Priority: Secondary Status: Chronic (7) Hypomagnesemia Priority: Primary Status: Resolved (8) Metabolic alkalosis with respiratory acidosis Priority: Secondary Status: Chronic (9) Anemia Priority: Secondary Status: Chronic (10) Foot pain, right Priority: Secondary Status: Acute (11) Hypokalemia Priority: Secondary Status: Acute Prognosis: Fair Aware of Diagnosis: Patient Aware of Prognosis: Patient - Transfer Medications Home Medications: Aspirin Enteric Coated [Aspirin EC] 81 mg PO DAILY #0 12/13/14 [History] Folic Acid 1 mg PO DAILY #0 12/13/14 [History] Nitroglycerin 0.4 mg SL Q5M PRN #0 12/13/14 [History] Omeprazole [PriLOSEC] 20 mg PO BID #0 12/13/14 [History] Thiamine (B-1) [Vitamin B-1] 100 mg PO DAILY #0 12/13/14 [History] Metoprolol XL (24 HR) Succ [Toprol XL] 25 mg PO DAILY 01/17/15 [History] Multivitamin/Iron/Folic Acid [Centrum Complete Multivit Tab] 1 each PO DAILY [History] Cetirizine HCl [All Day Allergy] 10 mg PO DAILY PRN 09/15/16 [History] Fluticasone Propionate [Flovent Hfa] 1 puff IH BID PRN 09/15/16 [History] Ipratropium/Albuterol Sulfate [Combivent Respimat Inhal [place]] 1 puff IH QID PRN 09/15/16 [History] Sennosides/Docusate Sodium [Senna-S Tablet] 1 tab PO BID PRN 09/15/16 [History] Simvastatin [Zocor] 10 mg PO HS 09/15/16 [History] Magnesium Oxide [Mgo] 400 mg PO DAILY 09/16/16 [History] Albuterol Sulfate [Albuterol Inhaler] 1 puff IH Q4H PRN #3 inhaler 09/19/16 [Rx] Ferrous Sulfate 325 mg PO TIDWM tablet 09/28/16 [Rx] Ipratropium/Albuterol Neb [Duoneb] 3 ml IH [id number] PRN #0 inhsol 09/28/16 [Rx] Lisinopril [Zestril] 5 mg PO DAILY tablet 09/28/16 [Rx] OxyCODONE/APAP 7.5/325 [Percocet 7.5/325 MG] 1 each PO Q6HR PRN #20 tablet 09/28 [Rx] amLODIPine [Norvasc] 5 mg PO DAILY tablet 09/28/16 [Rx] Budesonide/Formoterol 160/4.5 [Symbicort 160/4.5] 1 puff IH BIDR 02/22/17 [ History] Buspirone HCl [Buspar] 5 mg PO TID 02/22/17 [History] Umeclidinium [place] [Incruse Ellipta] 62.5 mcg IH DAILY 02/22/17 [History] Allergies/Adverse Reactions: 3 Allergy/AdvReac Type Severity Reaction Status Date / Time No Known Allergies Allergy Verified 09/15/16 17:19 - Respiratory Orders Oxygen / L per min (2-3L per minute) Smoking Cessation: Smoking cessation has been advised. For more information, call the [place] Tobacco Quit Line at 9-962-PNRP-NOW. - Advance Directives Code Status: Full Code - Diet Orders No Added Salt (RAYMON), Renal, Cardiac CERTIFICATION: I certify that the transfer of the above named patient to an Extended Care Facility is necessary for the continuing treatment of the diagnosis listed. The above information is true and accurate reflection of patient's current condition. Confidential - Redisclosure prohibited without a patient's written consent.
--- NOTE | 2017-02-24 13:53 | Electrocardiograph Report ---
[place] [id number] Test Date: 2017-02-24 Pat Name: Amy Vaughn Department: 112 Room: 2A26 Gender: F Marble Helper: MELISSA : 1960 Requested By: Pasquale Garcia Order Number: [id number] Reading MD: Dunia Gomez Measurements Intervals [place] Rate: 98 P: 80 WV: 173 QRS: 61 QRSD: 106 T: 72 QT: 354 QTc: 409 Interpretive Statements SINUS RHYTHM LEFT ATRIAL ENLARGEMENT Electronically Signed On 02-24-2017 13:52:18 EDT by Dunia Gomez
[2017-02-24 14:43] VITALS: BP 125/75
[2017-02-24] MEDS ORDERED: FLUARIX QUAD 2017-18 36MOS UP/PF 0.5 ML SYRINGE IM ONE (15:37)
--- NOTE | 2017-02-25 16:03 | Electrocardiograph Report ---
[place] [id number] Test Date: 2017-02-24 Pat Name: Amy Vaughn Department: 112 Room: 2A26 Gender: F Division Director: JOMAR : 1960 Requested By: Seamus Padilla Order Number: [id number] Reading MD: Micheal Suarez Measurements Intervals [place] Rate: 96 P: 84 TN: 121 QRS: 56 QRSD: 100 T: 71 QT: 324 QTc: 377 Interpretive Statements SINUS RHYTHM Electronically Signed On 02-25-2017 16:01:57 EDT by Micheal Suarez
== END 2017-02-24 16:12 | DRG 190 ==
LOC: EMEROO 16:41 → 2ANU 16:41 → 2NNU 21:59 → SUATTDRO 22:00 → 2ANU 02-23 13:31
PROVIDERS: ADMIT Internal Medicine; ATTEND Internal Medicine

== ENCOUNTER 2017-03-08 01:44 | Observation (INO) ==
[2017-03-08] MEDS ORDERED: methylPREDNISolone 125 MG/2 ML VIAL IVP ONE (02:06)
[2017-03-08] MEDS ORDERED: Ipratropium/Albuterol Neb 3 ML IH ONE (02:06)
[2017-03-08] MEDS ORDERED: Aspirin 81 MG TAB.CHEW PO ONE (02:11)
--- NOTE | 2017-03-08 02:17 | Emergency Department Note ---
Disposition Clinical Impression: Acute exacerbation of chronic obstructive airways disease Disposition: Admitted As Inpatient Time of Disposition: 03:40 General Adult HPI - General Chief complaint: ED Shortness of Breath/Dyspnea Stated complaint: REA Time Seen by Provider: 03/08/17 01:47 Source: patient, EMS Mode of arrival: EMS Limitations: no limitations Nursing Notes Reviewed: Yes Vital Signs Reviewed: Yes - History of Present Illness HPI Narrative: 57-year-old female presented to the ED complaining of chest pain and difficulty in breathing. She does have a history of cardiac bypass as well as COPD she is on 3 L nasal cannula all the time at home. She does not have a CPAP machine. She said the difficulty in breathing began this morning and has progressed to now where she is having chest pain that began approximately 4-5 hours ago. She says the chest pain is located just in her chest nonradiating. She has had no nausea or vomiting. No abdominal pain, no pain with urination or changes in bowel movements. She is having no pain or tingling going down the arms or legs. She is never had this kind of pain before. She states is a new chest pain. She feels like she is having a hard time catching her breath. She has no other complaints at this time. She states that she has had be intubated one time before. Pain Scale: 10 - Related Data Home Medications Medication Instructions Recorded Confirmed Aspirin Enteric Coated [Aspirin EC] 81 mg PO DAILY #0 12/13/14 02/22/17 Folic Acid 1 mg PO DAILY #0 12/13/14 02/22/17 Nitroglycerin 0.4 mg SL Q5M PRN #0 12/13/14 02/22/17 Omeprazole [PriLOSEC] 20 mg PO BID #0 12/13/14 02/22/17 Thiamine (B-1) [Vitamin B-1] 100 mg PO DAILY #0 12/13/14 02/22/17 Multivitamin/Iron/Folic Acid 1 each PO DAILY 01/17/15 02/22/17 [Centrum Complete Multivit Tab] Cetirizine HCl [All Day Allergy] 10 mg PO DAILY PRN 09/15/16 02/22/17 Fluticasone Propionate [Flovent 1 puff IH BID PRN 09/15/16 02/22/17 Hfa] Ipratropium/Albuterol Sulfate 1 puff IH QID PRN 09/15/16 02/22/17 [Combivent Respimat Inhal [place]] Sennosides/Docusate Sodium 1 tab PO BID PRN 09/15/16 02/22/17 [Senna-S Tablet] Simvastatin [Zocor] 10 mg PO HS 09/15/16 02/22/17 Magnesium Oxide [Mgo] 400 mg PO DAILY 09/16/16 02/22/17 Budesonide/Formoterol 160/4.5 1 puff IH BIDR 02/22/17 02/22/17 [Symbicort 160/4.5] Buspirone HCl [Buspar] 5 mg PO TID 02/22/17 02/22/17 Umeclidinium [place] [Incruse 62.5 mcg IH DAILY 02/22/17 02/22/17 Ellipta] Previous Rx's Medication Instructions Recorded Albuterol Sulfate [Albuterol 1 puff IH Q4H PRN #3 inhaler 09/19/16 Inhaler] Ferrous Sulfate 325 mg PO TIDWM tablet 09/28/16 Ipratropium/Albuterol Neb [Duoneb] 3 ml IH [id number] PRN #0 inhsol 09/28/16 Lisinopril [Zestril] 5 mg PO DAILY tablet 09/28/16 amLODIPine [Norvasc] 5 mg PO DAILY tablet 09/28/16 Doxycycline 100 mg PO BID capsule 02/24/17 Ipratropium/Albuterol Neb [Duoneb] 3 ml IH [id number] inhsol 02/24/17 Metoprolol [Lopressor] 25 mg PO BID tablet 02/24/17 predniSONE [PredniSONE] 40 mg PO DAILY tablet 02/24/17 Allergies Allergy/AdvReac Type Severity Reaction Status Date / Time No Known Allergies Allergy Verified 03/08/17 01:46 Review of Systems: 10 point review of systems done and negative unless otherwise stated in history of present illness. All systems ED: reviewed and negative except as stated. Review of Systems: As Per HPI Past Medical History - Past Medical History Medical history: Reports: CHF, COPD, hyperlipidemia, hypertension, myocardial infarction Surgical history: Reports: appendectomy, coronary bypass (CABG) Psychiatric history: Reports: anxiety [employer] ATTENDANT history: Reports: non-contributory - Social History Smoking Status: Former smoker Smokeless Tobacco Status: No Alcohol use: Reports: none Drug use: Reports: none Physical Exam - General Limitations: no limitations General appearance: alert, in no apparent distress - Head Head exam: atraumatic, normocephalic, normal inspection - Eye Eye exam: Present: normal appearance, PERRL, EOMI - ENT ENT exam: normal exam, normal oropharynx, mucous membranes moist - Neck Neck exam: Present: normal inspection, full ROM, trachea midline - Chest Chest inspection: Present: normal inspection, symmetric chest wall rise - Respiratory Respiratory exam: Present: accessory muscle use, prolonged expiratory phase. Absent: respiratory distress, wheezes, stridor - Cardiovascular Cardiovascular exam: Present: regular rate, normal rhythm, normal heart sounds - Abdominal Exam Abdominal exam: Present: soft, normal bowel sounds. Absent: Non-Tender, distention, guarding, rebound, rigidity - Extremities Exam Extremities exam: Present: normal inspection, full ROM. Absent: tenderness, pedal edema - Back Exam Back exam: Present: normal inspection, full ROM. Absent: tenderness, CVA tenderness (R), CVA tenderness (L) - Neurological Exam Neurological exam: Present: alert, oriented X3 - Skin Skin exam: Present: warm, dry, intact, normal color Course Course Narrative: Treatment erythema or difficult in breathing and chest pain. We will treat this as difficulty breathing also check for ACS. We will do chest x-ray, EKG, CBC, lactate, CMP. We will also give her triple DuoNeb treatment as well as Solu-Medrol. We will give her aspirin. Patient is still on oxygen. Patient's okay with this plan. We will start her on Levaquin. We will also start her on Levaquin. Patient is most likely to be admitted. Vital Signs Temperature 97.9 F 03/08/17 01:46 Pulse Rate 94 03/08/17 01:46 Respiratory Rate 26 03/08/17 01:46 Blood Pressure 97/75 03/08/17 01:46 O2 Sat by Pulse Oximetry 97 03/08/17 01:46 Temperature 97.9 F 03/08/17 01:46 Pulse Rate 99 03/08/17 03:36 Respiratory Rate 24 03/08/17 03:36 Blood Pressure 112/79 03/08/17 03:36 O2 Sat by Pulse Oximetry 97 03/08/17 03:36 Oxygen Delivery Oxygen Delivery Nasal Cannula Medical Decision Making - MDM Narrative Medical decision making narrative: 57-year-old female presents the ED with history of COPD and ACS issues. She came with chest pain and shortness of breath occurring today. She on examination had very little air movement in her lungs bilaterally. We started giving her trouble tonight treatment and Solu-Medrol. She did have pleural effusions. On chest x-ray her EKG was normal. Due to COPD exacerbation she was started on Levaquin. Blood cultures were drawn. She had an elevated BNP but this is normal for her. All other labs were normal she has slight leukocytosis. Troponin was negative. At this time most likely is a COPD exacerbation. She is always on oxygen. She is still on action. She seems to be doing better after the DuoNeb treatment was given. Patient is admitted to the hospitalist service for a telemetry bed. Spoke with Dr. Carpio the hospitalist who agreed to accept the patient. Patient is admitted in stable condition Chest X-Ray 03/08/17 02:06 IMPRESSION: Changes of COPD. Small bilateral pleural effusions, new. D/ / Mirian Marie MD / Mirian Marie MD Interpreting Provider: Mirian Marie MD - Medical Records Medical records reviewed: Yes I reviewed the patient's medical records. - Lab Data Lab results reviewed: Yes I reviewed the patient's lab results. Result diagrams: 03/08/17 02:00 03/08/17 02:00 Lab Results 03/08/17 03/08/17 03/08/17 Range/Units 02:00 02:00 02:00 WBC 15.8 H (4.3-11.1) K/mcL RBC 3.39 L (3.82-4.97) M/mcL Hgb 10.0 L (11.5-15.4) g/dL Hct 32.6 L (35.3-44.9) % MCV 96.2 (83.0-100.0) fL MCH 29.5 (28.0-33.3) pg MCHC 30.7 L (31.6-35.5) g/dL RDW 13.3 (11.5-14.5) % Plt Count 265 (140-400) K/mcL MPV 11.6 (9.4-12.4) fL Immature Gran % 0.4 (0-4) % Seg Neutrophils % 82.9 % Lymphocytes % 7.2 % Monocytes % 8.6 % Eosinophils % 0.6 % Basophils % 0.3 % Neutrophils # 13.1 H (1.6-8.9) K/mcL Lymphocytes # 1.1 (0.6-4.6) K/mcL Monocytes # 1.4 H (0.0-1.3) K/mcL Eosinophils # 0.1 (0.0-0.6) K/mcL Basophils # 0.0 (0.0-0.2) K/mcL Sodium 139 (136-145) mEq/L Potassium 4.8 H (3.5-4.5) mEq/L Chloride 99 (98-109) mEq/L Carbon Dioxide 27 (19-29) mEq/L BUN 24 H (7-20) mg/dL Creatinine 0.86 (0.57-1.11) mg/dL Est GFR ( Amer) > 60 (> 60) Est GFR (Non-Af Amer) > 60 (> 60) BUN/Creatinine Ratio 28 H (6-26) Glucose 114 H (70-99) mg/dL Calculated Osmolality 293 (280-300) Lactic Acid 0.5 (0.5-2.2) mmol/L Calcium 10.4 (8.6-10.8) mg/dL Troponin I (0-0.03) ng/mL B-Natriuretic Peptide (0-100) pg/mL 03/08/17 03/08/17 Range/Units 02:00 02:00 WBC (4.3-11.1) K/mcL RBC (3.82-4.97) M/mcL Hgb (11.5-15.4) g/dL Hct (35.3-44.9) % MCV (83.0-100.0) fL MCH (28.0-33.3) pg MCHC (31.6-35.5) g/dL RDW (11.5-14.5) % Plt Count (140-400) K/mcL MPV (9.4-12.4) fL Immature Gran % (0-4) % Seg Neutrophils % % Lymphocytes % % Monocytes % % Eosinophils % % Basophils % % Neutrophils # (1.6-8.9) K/mcL Lymphocytes # (0.6-4.6) K/mcL Monocytes # (0.0-1.3) K/mcL Eosinophils # (0.0-0.6) K/mcL Basophils # (0.0-0.2) K/mcL Sodium (136-145) mEq/L Potassium (3.5-4.5) mEq/L Chloride (98-109) mEq/L Carbon Dioxide (19-29) mEq/L BUN (7-20) mg/dL Creatinine (0.57-1.11) mg/dL Est GFR ( Amer) (> 60) Est GFR (Non-Af Amer) (> 60) BUN/Creatinine Ratio (6-26) Glucose (70-99) mg/dL Calculated Osmolality (280-300) Lactic Acid (0.5-2.2) mmol/L Calcium (8.6-10.8) mg/dL Troponin I 0.01 (0-0.03) ng/mL B-Natriuretic Peptide 388 H (0-100) pg/mL - Radiology Data Radiology results reviewed: Yes I reviewed the patient's radiology results. - EKG Data EKG #1 EKG attestation: Yes I reviewed and interpreted this EKG. EKG results narrative: EKG done at 0202 review by myself and the attending shows normal sinus rhythm with no acute changes at a rate of 94, MO interval 122, QRS 89, QTc 398 with a normal axis. No acute ST changes. No acute T-wave changes. No signs of any heart strain or hypertrophy. No heart blocks. No signs of WPW/Brugada syndrome. Compared with old EKG done 02/24/17 shows normal sinus rhythm with no acute changes. Critical Care Time Critical Care Time: Yes Total Critical Care Time: 35 Attestation: Critical care performed: Time is exclusive of separately billable procedures. Time includes: direct patient care, patient reassessment, coordination of patient care, interpretation of data (laboratory data, radiology data, and respiratory data), review of patient's medical records, medical consultation and documentation of patient care. Procedures included in critical care time: Procedures excluded from critical care time: Attestation Statement - Attestation Attestation: I, Tanner Romero DO, examined this patient [id number] and my medical decision-making was reviewed with Dr. Donato Kim, Resident Physician. I agree with the documented findings, disposition and treatment plan as described except to the extent set forth below. Please see my progress notes for details. 57-year-old female well known to our facility for COPD exacerbations presents here today with similar. She denies any chest pain fevers chills nausea vomiting or diarrhea. She has had a productive cough with sputum as well as increased work of breathing and shortness of breath. Patient denies any other complaints or issues. No new medications or medication changes. She has not traveled outside the country and denies any trauma or injury. Vital signs reviewed and she is to Borderline hypoxic on her home oxygen. She has diminished breath sounds diffusely throughout the lung [place]. She was started on steroids with breathing treatments here in the emergency room chest x-ray labs including BNP and troponin ordered. Patient will most likely need admission for what appears to be clinical evaluation for COPD exacerbation along with possible bronchitis. Patient is comfortable with this plan. See detailed documentation of physical exam, medical intervention, medical decision- making and disposition in the resident physician's note. 0300 Patient found to have clinical COPD with bilateral pleural effusions. BNP is chronically elevated at this point. No other concerning findings at this time. Patient will be admitted to the hospital for definitive evaluation treatment
[2017-03-08 02:18] LABS: Basophils % 0.3 %; Eosinophils # 0.1 K/mcL (0.0-0.6); Eosinophils % 0.6 %; Hematocrit 32.6 % (35.3-44.9); Immature Granulocytes % 0.4 % (0-4); Lymphocytes # 1.1 K/mcL (0.6-4.6); Lymphocytes % 7.2 %; Mean Corpuscular HGB Conc 30.7 g/dL (31.6-35.5); Mean Corpuscular Hemoglobin 29.5 pg (28.0-33.3); Mean Corpuscular Volume 96.2 fL (83.0-100.0); Mean Platelet Volume 11.6 fL (9.4-12.4); Monocytes # 1.4 K/mcL (0.0-1.3); Monocytes % 8.6 %; Neutrophils # 13.1 K/mcL (1.6-8.9); Platelet Count 265 K/mcL (140-400); Red Blood Count 3.39 M/mcL (3.82-4.97); Red Cell Distribution Width 13.3 % (11.5-14.5); Segmented Neutrophils % 82.9 %
[2017-03-08] MEDS ORDERED: Levofloxacin 750 MG/150 ML 750 MG/150 ML BAG IVPB ONE (02:20)
[2017-03-08] MEDS ORDERED: 0.9 % Sodium Chloride 1,000 ML IVC ONE (02:21)
[2017-03-08 02:29] LABS: BUN/Creatinine Ratio 28 (6-26); Blood Urea Nitrogen 24 mg/dL (7-20); Calcium 10.4 mg/dL (8.6-10.8); Carbon Dioxide 27 mEq/L (19-29); Chloride 99 mEq/L (98-109); Glucose 114 mg/dL (70-99); Osmolality,Calculated 293 (280-300); Potassium 4.8 mEq/L (3.5-4.5); Sodium 139 mEq/L (136-145); eGFR For African Americans > 60 (> 60); eGFR For Non-African Americans > 60 (> 60)
[2017-03-08] MEDS ORDERED: Furosemide 20 MG/2 ML VIAL IVP SCH (04:30)
[2017-03-08] MEDS ORDERED: Ondansetron 4 MG/2 ML VIAL IVP PRN (04:34)
[2017-03-08] MEDS ORDERED: *HR* Morphine 2 MG/ML SYRINGE IVP PRN (04:34)
[2017-03-08] MEDS ORDERED: Naloxone 0.4 MG/ML INJ IVP PRN (04:34)
--- NOTE | 2017-03-08 04:41 | Internal Med History&Physical ---
Date of Encounter: 03/08/17 Time of Encounter: 04:39 Assessment and Plan (1) Acute respiratory failure with hypoxia Current visit: No Status: Acute Acute on chronic hypoxic respiratory failure secondary to acute diastolic CHF exacerbation with bilateral pleural effusions Strict I's and O's, daily weight Start Lasix, fluid restriction Omeprazole for GI prophylaxis and subcutaneous heparin for DVT prophylaxis. The patient will be admitted for observation. Full code. Time spent on this admission 40 minutes (2) CHF (congestive heart failure) Current visit: No Status: Chronic Qualifiers: Congestive heart failure type: diastolic Congestive heart failure chronicity: acute on chronic Qualified Code(s): I50.33 - Acute on chronic diastolic (congestive) heart failure (3) COPD exacerbation Current visit: No Status: Acute Mild acute COPD exacerbation secondary to acute bronchitis, likely bacterial Continue Solu-Medrol, may switch to prednisone Continue Levaquin, DuoNeb nebs and oxygen therapy (4) Hyperkalemia Current visit: No Status: Acute Monitor potassium (5) SIRS (systemic inflammatory response syndrome) Current visit: No Status: Acute Possible sepsis secondary to acute bacterial bronchitis Continue Levaquin (6) Anxiety Current visit: No Status: Chronic (7) CAD (coronary artery disease) Current visit: No Status: Chronic Continue aspirin and metoprolol Qualifiers: Coronary Disease-Associated Artery/Lesion type: bypass graft [place] vs. transplanted heart: [place] heart Associated angina: without angina Qualified Code(s): I25.810 - Atherosclerosis of coronary artery bypass graft(s) without angina pectoris Internal Medicine - H&P: HPI Chief complaint: Shortness of breath Admitted From: Emergency Dept History of present illness: Ms. Vaughn is a 57 year old female with a past medical history of COPD oxygen dependent, hyperlipidemia, hypertension, diastolic CHF was recently discharged from this hospital on 04/26/2017 where she was treated for COPD exacerbation. Patient was transferred to the emergency room she has become more short of breath for the past couple of days having severe difficulty breathing. Cannot lay flat, chest x-ray shows bilateral pleural effusions more on the right than the left, BNP is 388, white blood cell count is 15.8, potassium 4.8. Has been bringing up yellowish phlegm, heart rate was 99 blood pressure 97/75. Complaining of some chest discomfort mainly when she coughs. Past Med Surg Social Fam HX - Past Medical History Medical history: CHF (Diastolic), COPD (Oxygen dependent on 3 L continuously), coronary artery disease, hyperlipidemia, hypertension, myocardial infarction, other (Intubated in the past, depression, chronic respiratory failure) Psychiatric history: anxiety - Past Surgical History Surgical History: appendectomy, coronary bypass (CABG) - Social History Smoking Status: Former smoker Smokeless Tobacco Status: No Alcohol use: none Drug use: none - Family History Father Living Status: Hx Family Cardiac Disorders: Yes (Father of OR) - Additional Family History Additional family history: Father with myocardial infarction Internal Medicine - H&P: Meds Aspirin Enteric Coated [Aspirin EC] 81 mg PO DAILY #0 12/13/14 [History] Folic Acid 1 mg PO DAILY #0 12/13/14 [History] Nitroglycerin 0.4 mg SL Q5M PRN #0 12/13/14 [History] Omeprazole [PriLOSEC] 20 mg PO BID #0 12/13/14 [History] Thiamine (B-1) [Vitamin B-1] 100 mg PO DAILY #0 12/13/14 [History] Multivitamin/Iron/Folic Acid [Centrum Complete Multivit Tab] 1 each PO DAILY [History] Cetirizine HCl [All Day Allergy] 10 mg PO DAILY PRN 09/15/16 [History] Fluticasone Propionate [Flovent [place]fa] 1 puff IH BID PRN 09/15/16 [History] Ipratropium/Albuterol Sulfate [Combivent Respimat Inhal [place]] 1 puff IH QID PRN 09/15/16 [History] Sennosides/Docusate Sodium [Senna-S Tablet] 1 tab PO BID PRN 09/15/16 [History] Simvastatin [Zocor] 10 mg PO HS 09/15/16 [History] Magnesium Oxide [Mgo] 400 mg PO DAILY 09/16/16 [History] Albuterol Sulfate [Albuterol Inhaler] 1 puff IH Q4H PRN #3 inhaler 09/19/16 [Rx] Ferrous Sulfate 325 mg PO TIDWM tablet 09/28/16 [Rx] Ipratropium/Albuterol Neb [Duoneb] 3 ml IH [id number] PRN #0 inhsol 09/28/16 [Rx] Lisinopril [Zestril] 5 mg PO DAILY tablet 09/28/16 [Rx] amLODIPine [Norvasc] 5 mg PO DAILY tablet 09/28/16 [Rx] Budesonide/Formoterol 160/4.5 [Symbicort 160/4.5] 1 puff IH BIDR 02/22/17 [ History] Buspirone HCl [Buspar] 5 mg PO TID 02/22/17 [History] Umeclidinium [place] [Incruse [place]] 62.5 mcg IH DAILY 02/22/17 [History] Doxycycline 100 mg PO BID capsule 02/24/17 [Rx] Ipratropium/Albuterol Neb [Duoneb] 3 ml IH [id number] inhsol 02/24/17 [Rx] Metoprolol [Lopressor] 25 mg PO BID tablet 02/24/17 [Rx] predniSONE [PredniSONE] 40 mg PO DAILY tablet 02/24/17 [Rx] 3 Allergy/AdvReac Type Severity Reaction Status Date / Time No Known Allergies Allergy Verified 03/08/17 01:46 All Systems PM: A 10-system review of systems was performed and is negative for pertinent findings except as documented above in the HPI. Review of systems: No fevers, no abdominal pain, no dysuria. Other systems out of the 10 reviewed were negative - Constitutional Vitals: Temp Pulse Resp BP Pulse Ox 98.1 F 73 16 126/89 98 03/08/17 04:15 03/08/17 04:15 03/08/17 04:15 03/08/17 04:15 03/08/17 04:15 General appearance: Present: A&O X 3 - Head Head exam: Present: atraumatic, normocephalic - Eye Eye exam: Present: PERRL, conjuntiva pink, sclera anicteric Pupils: Present: PERRL - Neck Neck exam general surgery: Present: supple, trachea midline. Absent: lymphadenopathy - Respiratory Respiratory exam: Present: decreased breath sounds (Bilateral blunted breath sounds, minimal wheezing), CTAB. Absent: accessory muscle use, rales, rhonchi, wheezes - Cardiovascular Cardiovascular exam: Present: RRR, +S1, +S2. Absent: diastolic murmur, gallop, rubs, systolic murmur - GI/Abdominal GI/Abdominal exam: Present: normal bowel sounds, soft, no peritoneal signs. Absent: distended, tenderness - Extremities Exam Extremities exam: Present: warm, radial pulses palpable and symmetrical. Absent : calf tenderness, cyanotic, pedal edema - Neurological Exam Neurological exam: Present: CN II-XII intact, oriented X3, no focal deficits. Absent: pronater drift, facial droop, speech deficit - Skin Skin exam: Present: dry, intact Internal Med - H&P Results - Labs CBC & Chem 7: 03/08/17 02:00 03/08/17 02:00
[2017-03-08] MEDS: Ipratropium/Albuterol Neb 3 ML IH SCH ×7 (04:52→21:52)
[2017-03-08] MEDS: Furosemide 20 MG/2 ML VIAL IVP SCH ×3 (05:10→16:48)
[2017-03-08] MEDS: *HR* Heparin 5,000 UNIT/ML VIAL SQ SCH ×3 (05:10→21:26)
[2017-03-08] MEDS ORDERED: Albuterol 2.5 MG/3 ML NEBULIZER IH PRN (07:49)
[2017-03-08] MEDS: amLODIPine 5 MG TABLET PO SCH (08:42)
[2017-03-08] MEDS: Aspirin Enteric Coated 81 MG Tablet PO SCH (08:43)
[2017-03-08] MEDS: MethylPREDNISolone 40 MG/ML VIAL IVP SCH ×3 (08:43→23:26)
[2017-03-08] MEDS ORDERED: Furosemide 40 MG/4 ML VIAL IVP ONE (12:36)
--- NOTE | 2017-03-08 12:39 | Event Note ---
Date of Encounter: 03/08/17 Time of Encounter: 12:39 Seen and evaluated at bedside On admission for acute on chronic hypoxic resp failure, CHFE, COPDE She is complaining of shortness of breath during my evaluation She is tachypneic and has widespread crackles IV lasix 40mg push given Increase duonebs to q2h BiPAP prn Continue to monitor closely
[2017-03-08] MEDS: Benzonatate 100 MG CAPSULE PO PRN (21:25)
[2017-03-09] MEDS: *HR* LORazepam 0.5 MG TABLET PO PRN ×3 (00:52→19:51)
[2017-03-09 03:37] LABS: Hematocrit 32.6 % (35.3-44.9); Hemoglobin 9.8 g/dL (11.5-15.4); Mean Corpuscular HGB Conc 30.1 g/dL (31.6-35.5); Mean Corpuscular Hemoglobin 28.3 pg (28.0-33.3); Mean Corpuscular Volume 94.2 fL (83.0-100.0); Mean Platelet Volume 11.5 fL (9.4-12.4); Platelet Count 249 K/mcL (140-400); Red Blood Count 3.46 M/mcL (3.82-4.97)
[2017-03-09] MEDS: Ipratropium/Albuterol Neb 3 ML IH SCH ×7 (03:41→23:55)
[2017-03-09 03:48] LABS: BUN/Creatinine Ratio 29 (6-26); Blood Urea Nitrogen 33 mg/dL (7-20); Calcium 10.6 mg/dL (8.6-10.8); Carbon Dioxide 35 mEq/L (19-29); Chloride 91 mEq/L (98-109); Glucose 145 mg/dL (70-99); Osmolality,Calculated 294 (280-300); Potassium 4.1 mEq/L (3.5-4.5); Sodium 137 mEq/L (136-145); eGFR For African Americans > 60 (> 60); eGFR For Non-African Americans 50 (> 60)
[2017-03-09] MEDS ORDERED: Levofloxacin 750 MG/150 ML 750 MG/150 ML BAG IVPB SCH (05:00)
[2017-03-09] MEDS: *HR* Heparin 5,000 UNIT/ML VIAL SQ SCH ×3 (05:41→21:08)
[2017-03-09] MEDS: Furosemide 20 MG/2 ML VIAL IVP SCH (08:27)
[2017-03-09] MEDS: MethylPREDNISolone 40 MG/ML VIAL IVP SCH ×3 (08:27→23:44)
[2017-03-09] MEDS: amLODIPine 5 MG TABLET PO SCH (08:30)
[2017-03-09] MEDS: Aspirin Enteric Coated 81 MG Tablet PO SCH (08:30)
--- NOTE | 2017-03-09 08:49 | Internal Med Progress Note ---
Date of Encounter: 03/09/17 Time of Encounter: 08:47 - Assessment and plan (1) Acute respiratory failure with hypoxia Current Visit: Yes Status: Acute Assessment and plan: Acute on chronic, secondary to CHFE and COPDE Improving clinically Continue O2 supplements Improved with BIpap 03/08 Continue prn (2) CHF (congestive heart failure) Current Visit: Yes Status: Acute Assessment and plan: Acute on Chronic I/O -340 Continue daily I/Os Weight check Fluid restriction Hold lasix for today, creatinine is elevated Qualifiers: Congestive heart failure type: diastolic Congestive heart failure chronicity: acute on chronic Qualified Code(s): I50.33 - Acute on chronic diastolic (congestive) heart failure (3) Acute exacerbation of chronic obstructive airways disease Current Visit: Yes Status: Acute Assessment and plan: Continue duonebs, prednisone and levaquin Change to prednisone a.m (4) CAD (coronary artery disease) Current Visit: Yes Status: Chronic Assessment and plan: continue home meds Qualifiers: Coronary Disease-Associated Artery/Lesion type: bypass graft [place] vs. transplanted heart: [place] heart Associated angina: without angina Qualified Code(s): I25.810 - Atherosclerosis of coronary artery bypass graft(s) without angina pectoris (5) HTN (hypertension) Current Visit: Yes Status: Chronic Assessment and plan: Continue home meds Qualifiers: Hypertension type: essential hypertension Qualified Code(s): I10 - Essential (primary) hypertension (6) Hyperlipemia Current Visit: Yes Status: Chronic Assessment and plan: Continue home meds Qualifiers: Hyperlipidemia type: unspecified Qualified Code(s): E78.5 - Hyperlipidemia , unspecified (7) Hyperkalemia Current Visit: Yes Status: Resolved Assessment and plan: Resolved (8) SIRS (systemic inflammatory response syndrome) Current Visit: Yes Status: Acute Assessment and plan: Multifactorial: Stress, steroids, bronchitis No sepsis evidence WBC normalized, no fever - Subjective Interval history: Seen and evaluated at bedside Patient reports that her shortness of breath has improved She however continues to complain of cough that is productive Her O2 sat is improving Her chest exam this morning revealed resolution of the crackles, she is still wheezing diffusely Cr slighlty elevated tody due to lasix Will hold lasix for today and repeat chem tomorrow - Constitutional Vitals: Temp Pulse Resp BP Pulse Ox 98.6 F 84 16 139/85 96 03/09/17 07:11 03/09/17 07:11 03/09/17 07:11 03/09/17 07:11 03/09/17 08:33 General appearance: Present: cachectic, disheveled, A&O X 3, pleasant - Head Head exam: Present: atraumatic, normocephalic - Eye Eye exam: Present: PERRL, conjuntiva pink, sclera anicteric Pupils: Present: PERRL - Neck Neck exam general surgery: Present: supple, trachea midline. Absent: lymphadenopathy - Respiratory Respiratory exam: Present: wheezes. Absent: rales, rhonchi, stridor - Cardiovascular Cardiovascular exam: Present: RRR, +S1, +S2. Absent: diastolic murmur, gallop, rubs, systolic murmur - GI/Abdominal GI/Abdominal exam: Present: normal bowel sounds, soft, no peritoneal signs. Absent: distended, tenderness - Extremities Exam Extremities exam: Present: warm, radial pulses palpable and symmetrical. Absent : calf tenderness, cyanotic, pedal edema - Neurological Exam Neurological exam: Present: alert, CN II-XII intact, oriented X3, no focal deficits. Absent: pronater drift, facial droop, speech deficit - Skin Skin exam: Present: dry, intact Internal Medicine: Result - Labs CBC & Chem 7: 03/09/17 03:22 03/09/17 03:22 Labs: Short CBC 03/09/17 Range/Units 03:22 WBC 6.2 D (4.3-11.1) K/mcL Hgb 9.8 L (11.5-15.4) g/dL Hct 32.6 L (35.3-44.9) % Plt Count 249 (140-400) K/mcL BMP 03/09/17 03:22 Sodium 137 Potassium 4.1 Chloride 91 L Carbon Dioxide 35 H BUN 33 H Creatinine 1.12 H Glucose 145 H Calcium 10.6 - VTE Documentation of Mechanical Device: Intermittent pneumatic compression device Consult Discharge Plan - Plan Referrals: NONE,PCP [Primary Care Provider] -
[2017-03-09] MEDS: Acetaminophen 325 MG TABLET PO PRN (18:27)
[2017-03-09] MEDS: Benzonatate 100 MG CAPSULE PO PRN (21:58)
[2017-03-10 04:04] LABS: Basophils % 0.1 %; Hematocrit 34.8 % (35.3-44.9); Hemoglobin 10.7 g/dL (11.5-15.4); Immature Granulocytes % 1.8 % (0-4); Lymphocytes # 0.7 K/mcL (0.6-4.6); Lymphocytes % 9.4 %; Mean Corpuscular HGB Conc 30.7 g/dL (31.6-35.5); Mean Corpuscular Hemoglobin 28.5 pg (28.0-33.3); Mean Corpuscular Volume 92.6 fL (83.0-100.0); Monocytes # 0.2 K/mcL (0.0-1.3); Neutrophils # 6.7 K/mcL (1.6-8.9); Nucleated Red Blood Cells 0.3 /100 WBC (0); Platelet Count 298 K/mcL (140-400); Red Blood Count 3.76 M/mcL (3.82-4.97); Red Cell Distribution Width 12.8 % (11.5-14.5); Segmented Neutrophils % 85.7 %
[2017-03-10 04:21] LABS: BUN/Creatinine Ratio 37 (6-26); Blood Urea Nitrogen 39 mg/dL (7-20); Calcium 10.3 mg/dL (8.6-10.8); Carbon Dioxide 34 mEq/L (19-29); Chloride 89 mEq/L (98-109); Glucose 150 mg/dL (70-99); Osmolality,Calculated 292 (280-300); Potassium 4.1 mEq/L (3.5-4.5); Sodium 135 mEq/L (136-145); eGFR For African Americans > 60 (> 60); eGFR For Non-African Americans 53 (> 60)
[2017-03-10] MEDS ORDERED: Levofloxacin 750 MG/150 ML 750 MG/150 ML BAG IVPB SCH (05:00)
[2017-03-10] MEDS: *HR* Heparin 5,000 UNIT/ML VIAL SQ SCH ×3 (05:53→21:10)
[2017-03-10] MEDS: Ipratropium/Albuterol Neb 3 ML IH SCH ×6 (05:53→23:49)
--- NOTE | 2017-03-10 07:12 | Electrocardiograph Report ---
[place] [id number] Test Date: 2017-03-08 Pat Name: Amy Vaughn Department: 103 Room: 3B Gender: F [employer] Production: VIV : 1960 Requested By: Donato Kim Order Number: [id number] Reading MD: Tenzin Deal DO Measurements Intervals [place] Rate: 94 P: 86 GA: 122 QRS: 57 QRSD: 89 T: 77 QT: 346 QTc: 398 Interpretive Statements SINUS RHYTHM WITH OCCASIONAL SUPRAVENTRICULAR PREMATURE COMPLEXES Electronically Signed On 03-10-2017 7:10:10 EST by Tenzin Deal DO
[2017-03-10] MEDS: Aspirin Enteric Coated 81 MG Tablet PO SCH (08:28)
[2017-03-10] MEDS: predniSONE 20 MG TABLET PO SCH (08:28)
[2017-03-10] MEDS: amLODIPine 5 MG TABLET PO SCH (08:28)
[2017-03-10] MEDS: Furosemide 20 MG TABLET PO SCH (08:28)
--- NOTE | 2017-03-10 09:25 | Internal Med Progress Note ---
Date of Encounter: 03/10/17 Time of Encounter: 09:24 - Assessment and plan (1) Acute respiratory failure with hypoxia Current Visit: Yes Status: Acute Assessment and plan: Acute on chronic, secondary to CHFE and COPDE Improving clinically Continue O2 supplements Improved with BIpap 03/08 Continue prn (2) CHF (congestive heart failure) Current Visit: Yes Status: Acute Assessment and plan: Acute on Chronic I/O -1140 Continue daily I/Os Weight check Fluid restriction LAsix po. Qualifiers: Congestive heart failure type: diastolic Congestive heart failure chronicity: acute on chronic Qualified Code(s): I50.33 - Acute on chronic diastolic (congestive) heart failure (3) Acute exacerbation of chronic obstructive airways disease Current Visit: Yes Status: Acute Assessment and plan: Continue duonebs, prednisone and levaquin (4) CAD (coronary artery disease) Current Visit: Yes Status: Chronic Assessment and plan: continue home meds Qualifiers: Coronary Disease-Associated Artery/Lesion type: bypass graft [place] vs. transplanted heart: [place] heart Associated angina: without angina Qualified Code(s): I25.810 - Atherosclerosis of coronary artery bypass graft(s) without angina pectoris (5) HTN (hypertension) Current Visit: Yes Status: Chronic Assessment and plan: Continue home meds Qualifiers: Hypertension type: essential hypertension Qualified Code(s): I10 - Essential (primary) hypertension (6) Hyperlipemia Current Visit: Yes Status: Chronic Assessment and plan: Continue home meds Qualifiers: Hyperlipidemia type: unspecified Qualified Code(s): E78.5 - Hyperlipidemia , unspecified (7) Hyperkalemia Current Visit: Yes Status: Resolved (8) SIRS (systemic inflammatory response syndrome) Current Visit: Yes Status: Acute Assessment and plan: Multifactorial: Stress, steroids, bronchitis No sepsis evidence WBC normalized, no fever - Subjective Interval history: Seen and evaluated at bedside Patient reports that her shortness of breath and cough has improved She has a headache this morning, otherwise denies any symptoms - Constitutional Vitals: Temp Pulse Resp BP Pulse Ox 98.1 F 93 18 117/75 100 03/10/17 06:58 03/10/17 06:58 03/10/17 08:19 03/10/17 06:58 03/10/17 08:19 General appearance: Present: cachectic, disheveled, A&O X 3, pleasant - Head Head exam: Present: atraumatic, normocephalic - Eye Eye exam: Present: PERRL, conjuntiva pink, sclera anicteric Pupils: Present: PERRL - Neck Neck exam general surgery: Present: supple, trachea midline. Absent: lymphadenopathy - Respiratory Respiratory exam: Present: CTAB. Absent: accessory muscle use, rales, rhonchi, wheezes - Cardiovascular Cardiovascular exam: Present: RRR, +S1, +S2. Absent: diastolic murmur, gallop, rubs, systolic murmur - GI/Abdominal GI/Abdominal exam: Present: normal bowel sounds, soft, no peritoneal signs. Absent: distended, tenderness - Extremities Exam Extremities exam: Present: warm, radial pulses palpable and symmetrical. Absent : calf tenderness, cyanotic, pedal edema - Neurological Exam Neurological exam: Present: alert, CN II-XII intact, oriented X3, no focal deficits. Absent: pronater drift, facial droop, speech deficit - Skin Skin exam: Present: dry, intact Internal Medicine: Result - Labs CBC & Chem 7: 03/10/17 03:29 03/10/17 03:29 Labs: Short CBC 03/10/17 Range/Units 03:29 WBC 7.8 (4.3-11.1) K/mcL Hgb 10.7 L (11.5-15.4) g/dL Hct 34.8 L (35.3-44.9) % Plt Count 298 (140-400) K/mcL Neutrophils # 6.7 (1.6-8.9) K/mcL BMP 03/10/17 03:29 Sodium 135 L Potassium 4.1 Chloride 89 L Carbon Dioxide 34 H BUN 39 H Creatinine 1.06 Glucose 150 H Calcium 10.3 - VTE Documentation of Mechanical Device: Intermittent pneumatic compression device Consult Discharge Plan - Plan Referrals: NONE,PCP [Primary Care Provider] -
[2017-03-10] MEDS: *HR* OxyCODONE/APAP 5/325 TABLET PO PRN ×2 (11:35→21:09)
[2017-03-10] MEDS: Acetaminophen 325 MG TABLET PO PRN (16:37)
[2017-03-10] MEDS: *HR* LORazepam 0.5 MG TABLET PO PRN (19:16)
[2017-03-11] MEDS: Ipratropium/Albuterol Neb 3 ML IH SCH ×4 (03:55→16:13)
[2017-03-11] MEDS: Benzonatate 100 MG CAPSULE PO PRN (04:10)
[2017-03-11] MEDS: *HR* Heparin 5,000 UNIT/ML VIAL SQ SCH ×2 (05:44→13:31)
[2017-03-11] MEDS: *HR* OxyCODONE/APAP 5/325 TABLET PO PRN ×2 (05:47→11:51)
[2017-03-11] MEDS: Aspirin Enteric Coated 81 MG Tablet PO SCH (08:55)
[2017-03-11] MEDS: predniSONE 20 MG TABLET PO SCH (08:56)
[2017-03-11] MEDS: Furosemide 20 MG TABLET PO SCH (08:56)
[2017-03-11] MEDS: amLODIPine 5 MG TABLET PO SCH (08:56)
[2017-03-11] MEDS ORDERED: *HR* OxyCODONE/APAP 5/325 TABLET PO PRN (12:12)
--- NOTE | 2017-03-11 12:35 | Discharge Summary ---
Date of Encounter: 03/11/17 Time of Encounter: 12:32 - Discharge Diagnosis (1) Acute respiratory failure with hypoxia Priority: Primary Status: Acute (2) Diastolic heart failure Priority: Secondary Status: Acute Qualifiers: Heart failure chronicity: acute on chronic Qualified Code(s): I50.33 - Acute on chronic diastolic (congestive) heart failure (3) CAD (coronary artery disease) Priority: Secondary Status: Chronic Qualifiers: Coronary Disease-Associated Artery/Lesion type: bypass graft [place] vs. transplanted heart: [place] heart Associated angina: without angina Qualified Code(s): I25.810 - Atherosclerosis of coronary artery bypass graft(s) without angina pectoris (4) COPD exacerbation Priority: Secondary Status: Acute (5) Hypokalemia Priority: Secondary Status: Resolved - Discharge Medications Prescriptions: Albuterol Neb [Proventil Neb] 2.5 mg IH [id number] PRN #120 vial PRN Reason: Shortness Of Breath/Wheezing levoFLOXacin [Levaquin] 750 mg PO Q48H #7 tablet Home Medications: Aspirin Enteric Coated [Aspirin EC] 81 mg PO DAILY #0 12/13/14 [History] Folic Acid 1 mg PO DAILY #0 12/13/14 [History] Nitroglycerin 0.4 mg SL Q5M PRN #0 12/13/14 [History] Omeprazole [PriLOSEC] 20 mg PO BID #0 12/13/14 [History] Thiamine (B-1) [Vitamin B-1] 100 mg PO DAILY #0 12/13/14 [History] Multivitamin/Iron/Folic Acid [Centrum Complete Multivit Tab] 1 tab PO DAILY [History] Cetirizine HCl [All Day Allergy] 10 mg PO DAILY PRN 09/15/16 [History] Fluticasone Propionate [Flovent Hfa] 1 puff IH BID PRN 09/15/16 [History] Ipratropium/Albuterol Sulfate [Combivent Respimat Inhal [place]] 1 puff IH QID PRN 09/15/16 [History] Sennosides/Docusate Sodium [Senna-S Tablet] 1 tab PO BID PRN 09/15/16 [History] Simvastatin [Zocor] 10 mg PO HS 09/15/16 [History] Magnesium Oxide [[place]] 400 mg PO DAILY 09/16/16 [History] Albuterol Sulfate [Albuterol Inhaler] 1 puff IH Q4H PRN #3 inhaler 09/19/16 [Rx] Ferrous Sulfate 325 mg PO TIDWM tablet 09/28/16 [Rx] Ipratropium/Albuterol Neb [Duoneb] 3 ml IH [id number] PRN #0 inhsol 09/28/16 [Rx] Lisinopril [Zestril] 5 mg PO DAILY tablet 09/28/16 [Rx] amLODIPine [Norvasc] 5 mg PO DAILY tablet 09/28/16 [Rx] Budesonide/Formoterol 160/4.5 [Symbicort 160/4.5] 1 puff IH BIDR 02/22/17 [ History] Umeclidinium [place] [Incruse Ellipta] 62.5 mcg IH DAILY 02/22/17 [History] Guaifenesin [Mucus Relief] 400 mg PO BID 03/08/17 [History] Metoprolol [Lopressor] 25 mg PO DAILY 03/08/17 [History] Paroxetine [Paxil] 30 mg PO DAILY 03/08/17 [History] Albuterol Neb [Proventil Neb] 2.5 mg IH [id number] PRN #120 vial 03/11/17 [Rx] Furosemide [Lasix] 40 mg PO DAILY #30 tablet 03/11/17 [Rx] levoFLOXacin [Levaquin] 750 mg PO Q48H #7 tablet 03/11/17 [Rx] Allergies/Adverse Reactions: 3 Allergy/AdvReac Type Severity Reaction Status Date / Time No Known Allergies Allergy Verified 03/08/17 01:46 Date of admission: 03/08/17 03:34 Primary care physician: PCP NONE Consults: 03/09/17 08:33 Consult to Paid Search Manager [CONS] Routine Reason for SW Consult: came from [facility] Discharging clinician: Shelia Samuels - Patient Status Disposition: Transfer SNF Condition: Fair Functional capacity at discharge: independent ambulation - Discharge Instructions Follow Up With: NONE,PCP [Primary Care Provider] - - Diet and Activity Activity: increase activity as tolerated Diet: low fat, low cholesterol, low salt diet Hospital course: Ms. Vaughn is a 57 year old female with a past medical history of COPD oxygen dependent, hyperlipidemia, hypertension, diastolic CHF was recently discharged from this hospital on 02/24/2017 where she was treated for COPD exacerbation. Patient was transferred to the emergency room she has become more short of breath for the past couple of days having severe difficulty breathing. Cannot lay flat, chest x-ray shows bilateral pleural effusions more on the right than the left, BNP is 388, white blood cell count is 15.8, potassium 4.8. Has been bringing up yellowish phlegm, heart rate was 99 blood pressure 97/75. Placed on strict I's and O's started on Lasix and fluid restricted. She appeared to have a acute COPD exacerbation as well and so Solu-Medrol was given and switched to prednisone. She was started on Levaquin and DuoNeb therapy was given. Patient respiratory-barker improved significantly. He was discharged home with prescription for Levaquin and prednisone. She also needs a refill on albuterol nebulizer solution she takes at home and that was refilled for her as well. She was discharged home in stable condition at her baseline respiratory status. - Time Spent with Patient Total time spent providing and/or coordinating discharge services: - Constitutional Vitals: Temp Pulse Resp BP Pulse Ox 97.8 F 92 18 115/72 94 03/11/17 10:32 03/11/17 10:32 03/11/17 11:07 03/11/17 10:32 03/11/17 11:07 General appearance: Present: cachectic, disheveled, A&O X 3, pleasant Exam: - Head Head exam: Present: atraumatic, normocephalic - Eye Eye exam: Present: PERRL, conjuntiva pink, sclera anicteric Pupils: Present: PERRL - Neck Neck exam general surgery: Present: supple, trachea midline. Absent: lymphadenopathy - Respiratory Respiratory exam: Present: CTAB. Absent: accessory muscle use, rales, rhonchi, wheezes - Cardiovascular Cardiovascular exam: Present: RRR, +S1, +S2. Absent: diastolic murmur, gallop, rubs, systolic murmur - GI/Abdominal GI/Abdominal exam: Present: normal bowel sounds, soft, no peritoneal signs. Absent: distended, tenderness - Extremities Exam Extremities exam: Present: warm, radial pulses palpable and symmetrical. Absent : calf tenderness, cyanotic, pedal edema - Neurological Exam Neurological exam: Present: alert, CN II-XII intact, oriented X3, no focal deficits. Absent: pronater drift, facial droop, speech deficit - Skin Skin exam: Present: dry, intact - VTE Documentation of Mechanical Device: Intermittent pneumatic compression device
--- NOTE | 2017-03-11 13:00 | Physician Discharge Referral ---
ExtendedCare Referral Info Transfer To: F Provider in Charge after Transfer: PCP Institutional Level of Care: Skilled - Diagnosis (1) Acute respiratory failure with hypoxia Priority: Primary Status: Acute (2) Diastolic heart failure Priority: Secondary Status: Acute (3) CAD (coronary artery disease) Priority: Secondary Status: Chronic (4) COPD exacerbation Priority: Secondary Status: Acute (5) Hypokalemia Priority: Secondary Status: Resolved Prognosis: Fair - Transfer Medications Prescriptions: Albuterol Neb [Proventil Neb] 2.5 mg IH [id number] PRN #120 vial PRN Reason: Shortness Of Breath/Wheezing Furosemide [Lasix] 40 mg PO DAILY #30 tablet levoFLOXacin [Levaquin] 750 mg PO Q48H #7 tablet Home Medications: Aspirin Enteric Coated [Aspirin EC] 81 mg PO DAILY #0 12/13/14 [History] Folic Acid 1 mg PO DAILY #0 12/13/14 [History] Nitroglycerin 0.4 mg SL Q5M PRN #0 12/13/14 [History] Omeprazole [PriLOSEC] 20 mg PO BID #0 12/13/14 [History] Thiamine (B-1) [Vitamin B-1] 100 mg PO DAILY #0 12/13/14 [History] Multivitamin/Iron/Folic Acid [Centrum Complete Multivit Tab] 1 tab PO DAILY [History] Cetirizine HCl [All Day Allergy] 10 mg PO DAILY PRN 09/15/16 [History] Fluticasone Propionate [Flovent Hfa] 1 puff IH BID PRN 09/15/16 [History] Ipratropium/Albuterol Sulfate [Combivent Respimat Inhal [place]] 1 puff IH QID PRN 09/15/16 [History] Sennosides/Docusate Sodium [Senna-S Tablet] 1 tab PO BID PRN 09/15/16 [History] Simvastatin [Zocor] 10 mg PO HS 09/15/16 [History] Magnesium Oxide [[place]] 400 mg PO DAILY 09/16/16 [History] Albuterol Sulfate [Albuterol Inhaler] 1 puff IH Q4H PRN #3 inhaler 09/19/16 [Rx] Ferrous Sulfate 325 mg PO TIDWM tablet 09/28/16 [Rx] Ipratropium/Albuterol Neb [Duoneb] 3 ml IH [id number] PRN #0 inhsol 09/28/16 [Rx] Lisinopril [Zestril] 5 mg PO DAILY tablet 09/28/16 [Rx] amLODIPine [Norvasc] 5 mg PO DAILY tablet 09/28/16 [Rx] Budesonide/Formoterol 160/4.5 [Symbicort 160/4.5] 1 puff IH BIDR 02/22/17 [ History] Umeclidinium [place] [Incruse Ellipta] 62.5 mcg IH DAILY 02/22/17 [History] Guaifenesin [Mucus Relief] 400 mg PO BID 03/08/17 [History] Metoprolol [Lopressor] 25 mg PO DAILY 03/08/17 [History] Paroxetine [Paxil] 30 mg PO DAILY 03/08/17 [History] Albuterol Neb [Proventil Neb] 2.5 mg IH [id number] PRN #120 vial 03/11/17 [Rx] Furosemide [Lasix] 40 mg PO DAILY #30 tablet 03/11/17 [Rx] levoFLOXacin [Levaquin] 750 mg PO Q48H #7 tablet 03/11/17 [Rx] Allergies/Adverse Reactions: 3 Allergy/AdvReac Type Severity Reaction Status Date / Time No Known Allergies Allergy Verified 03/08/17 01:46 - Respiratory Orders Oxygen / L per min (3 L) Smoking Cessation: Smoking cessation has been advised. For more information, call the [place] Tobacco Quit Line at 8-358-DAQC-NOW. - Mobility Orders Ambulate - Diet Orders No Added Salt (RAYMON), Cardiac CERTIFICATION: I certify that the transfer of the above named patient to an Extended Care Facility is necessary for the continuing treatment of the diagnosis listed. The above information is true and accurate reflection of patient's current condition. Confidential - Redisclosure prohibited without a patient's written consent.
[2017-03-11 15:45] VITALS: BP 108/74
[2017-03-12] MEDS ORDERED: levoFLOXacin 750 MG TABLET PO SCH (09:00)
== END 2017-03-11 16:11 ==
LOC: EMEROO 01:44 → 3BNU 01:44 → SUATTDRO 03:34 → 3BNU 03:46 → 3ANU 03-10 23:58
PROVIDERS: ADMIT Internal Medicine; ATTEND Student in an Organized Health Care Education/Training Program

== ENCOUNTER 2017-07-17 03:19 | Inpatient (IN) ==
--- NOTE | 2017-07-17 03:27 | Emergency Department Note ---
Disposition Clinical Impression: COPD exacerbation, Respiratory acidosis Respiratory failure Qualifiers: Chronicity: acute Respiratory failure complication: hypercapnia Qualified Code( s): J96.02 - Acute respiratory failure with hypercapnia Chest pain Qualifiers: Chest pain type: unspecified Qualified Code(s): R07.9 - Chest pain, unspecified Disposition: Admitted As Inpatient Condition: Critical Time of Disposition: 07:10 Chest Pain HPI - General Chief Complaint: ED Chest Pain Stated Complaint: Chest Pain Time Seen by Provider: 07/17/17 03:26 Source: patient, EMS Mode of arrival: EMS Limitations: no limitations Vital Signs Reviewed: Yes Nursing Notes Reviewed: Yes - History of Present Illness HPI Narrative: Patient is a 57 yo F with PMHX of COPD, quadruple bypass., HTN. She presents via EMS from nursing facility due to chest pain, dyspnea. Patient states that she has been having chest discomfort and increased work of breathing, increased O2 requirement over the past 2 weeks. She usually wears 2 L NC but has increased recently to 4L NC. She also reports cough above baselines. She uses daily albuterol and steroid inhalers. She says that she is having centered chest discomfort, described as a dull ache, no radiation to extremities or jaw, comes and goes, worse with exertion. She Reports being given nitroglycerin multiple times a day over the past 2 weeks. Currently, she feel short of breath with mild chest discomfort. Denies nausea, vomiting, diarrhea, abdominal pain, light headedness, dizziness, dysuria, hematuria. - Related Data Home Medications Medication Instructions Recorded Confirmed Aspirin Enteric Coated [Aspirin EC] 81 mg PO DAILY #0 12/13/14 07/17/17 Nitroglycerin 0.4 mg SL Q5M PRN #0 12/13/14 07/17/17 Omeprazole [PriLOSEC] 20 mg PO BID #0 12/13/14 07/17/17 Thiamine (B-1) [Vitamin B-1] 100 mg PO DAILY #0 12/13/14 07/17/17 Multivitamin/Iron/Folic Acid 1 tab PO DAILY 01/17/15 07/17/17 [Centrum Complete Multivit Tab] Cetirizine HCl [All Day Allergy] 10 mg PO DAILY PRN 09/15/16 07/17/17 Sennosides/Docusate Sodium 1 tab PO BID PRN 09/15/16 07/17/17 [Senna-S Tablet] Simvastatin [Zocor] 10 mg PO HS 09/15/16 07/17/17 Magnesium Oxide [Mgo] 400 mg PO DAILY 09/16/16 07/17/17 Budesonide/Formoterol 160/4.5 1 puff IH BIDR 02/22/17 07/17/17 [Symbicort 160/4.5] Umeclidinium [place] [Incruse 62.5 mcg IH DAILY 02/22/17 07/17/17 Ellipta] Guaifenesin [Mucus Relief] 400 mg PO BID 03/08/17 07/17/17 Metoprolol [Lopressor] 25 mg PO DAILY 03/08/17 07/17/17 Acetaminophen [Non-Aspirin] 1 - 2 tab PO Q4H PRN 07/17/17 07/17/17 Furosemide [Lasix] 20 mg PO DAILY 07/17/17 07/17/17 Melatonin [Melatin] 3 mg PO HS 07/17/17 07/17/17 PARoxetine HCl [Paroxetine HCl] 40 mg PO DAILY 07/17/17 07/17/17 acetaZOLAMIDE [Diamox] 250 mg PO DAILY 07/17/17 07/17/17 Previous Rx's Medication Instructions Recorded Albuterol Sulfate [Albuterol 1 puff IH Q4H PRN #3 inhaler 09/19/16 Inhaler] Ferrous Sulfate 325 mg PO TIDWM tablet 09/28/16 amLODIPine [Norvasc] 5 mg PO DAILY tablet 09/28/16 Albuterol Neb [Proventil Neb] 2.5 mg IH [id number] PRN #120 vial 03/11/17 Allergies Allergy/AdvReac Type Severity Reaction Status Date / Time No Known Allergies Allergy Verified 03/08/17 01:46 All systems ED: reviewed and negative except as stated. Constitutional: Denies: fever Cardiovascular: Reports: chest pain, dyspnea on exertion Respiratory: Reports: cough, dyspnea, wheezes Gastrointestinal: Denies: abdominal pain, nausea, vomiting, diarrhea Genitourinary: Denies: urgency, dysuria, frequency Neurological: Denies: headache, weakness, numbness Chest Pain PMH - Past Medical History Medical history: Reports: CHF (Diastolic), COPD (Oxygen dependent on 3 L continuously), coronary artery disease, hyperlipidemia, hypertension, myocardial infarction, other (Intubated in the past, depression, chronic respiratory failure) Surgical history: Reports: appendectomy, coronary bypass (CABG) Psychiatric history: Reports: anxiety [employer]IDENT [employer] history: Reports: non-contributory - Social History Smoking Status: Former smoker Alcohol use: Reports: none Drug use: Reports: none Physical Exam - General Limitations: no limitations General appearance: alert, in no apparent distress - Head Head exam: atraumatic, normocephalic, normal inspection - Eye Eye exam: Present: PERRL, EOMI - ENT ENT exam: normal exam, normal oropharynx, mucous membranes moist - Neck Neck exam: Present: normal inspection, full ROM, trachea midline - Chest Chest inspection: Present: normal inspection, symmetric chest wall rise - Respiratory Respiratory exam: Present: other (decreased aeration throughout, tight sounding ; no major wheeze or rhonchi) - Cardiovascular Cardiovascular exam: Present: normal rhythm, tachycardia, normal heart sounds - Abdominal Exam Abdominal exam: Present: soft, Non-Tender. Absent: tenderness, distention, guarding, rebound, rigidity - Extremities Exam Extremities exam: Present: normal inspection, full ROM. Absent: tenderness, pedal edema - Neurological Exam Neurological exam: Present: alert, oriented X3 - Psychiatric Psychiatric exam: Present: normal affect, normal mood - Skin Skin exam: Present: warm, dry, intact, normal color. Absent: cyanosis, diaphoresis Course Course Narrative: Patient was tachycardic and febrile on presentation. Otherwise, she had saturation in mid 90s on 4L NC O2. She had increased work of breathing, mild tripoding, decreased breath sounds throughout. The rest of her exam was fairly benign. patien was given 3 duoneb and solumedrol. She had improvement in subjective dyspnea and in wheezing on exam after treatments. CBC showed no elevation in WBC, BMP showed no major abnormalities, troponin negative. Initial EKG showed sinus tach with some acute ST depression in V4-V6. No other acute ST elevations. D-dimer was ordered and elevated, CTA ordered and negative for PE. It did show some mucous plugging and bronchial wall thickening. Upon return from CT, patient had return of chest pain, increased work of breathing, and went into resp distress. She then went into SVT in 150s to 160s. Blood pressures became soft. Adenosine 6mg and then 12mg was pushed with brief change and then return to 150s. Patient continued to decompensate resp barker with sats dropping to 80s. Patient was subsequently intubated using monse 70mg and etomidate 20mg. After intubation, patient was given lopressor 5mg and HR dropped to 100s, blood pressure dropped to 70-80s systolic with a MAP of 65. Patient was given 2L NS bolus and pressures ana to 100s systolic. She was started empirically on levaquin 500mg. Aspirin 325 mg given on initial presentation, and tylenol ordered rectally for increased temp. Patient placed on Precedex drip for sedation (did not use propofol or versed due to fear of dropping pressures). Patient presented to [facility] including presentation, vitals, workup, and patient was accepted to ICU. pH after intubation was 7.18 and CO 2 in 80s. Peanut Vendor recommended increasing tidal volume to compensate for this change. Stable prior to admission. Vital Signs Temperature 101.4 F H 07/17/17 03:21 Pulse Rate 124 07/17/17 03:21 Respiratory Rate 28 07/17/17 03:21 Blood Pressure 145/80 07/17/17 03:21 O2 Sat by Pulse Oximetry 98 07/17/17 03:21 Temperature 101.4 F H 07/17/17 03:21 Pulse Rate 102 07/17/17 07:01 Respiratory Rate 10 07/17/17 07:39 Blood Pressure 83/67 07/17/17 07:39 O2 Sat by Pulse Oximetry 100 07/17/17 07:35 Oxygen Delivery Oxygen Delivery Ventilator Procedures - Intubation Time out performed: Yes sedative: Etomidate Mg Given: 20 paralytic: Rocuronium Mg Given: 70 Laryngoscope: Ricarda ET Tube Size: 7.5 ET Tube Uncuffed: Yes Tube Secured Depth (cm): 24 Tube Secured Location: lips Tube Placement Confirmation: visualized tube passing through cords, equal breath sounds bilaterally, no breath sounds over epigastrium, confirmation by capnometry Patient Tolerated Procedure: well Intubation Complications: none Chest Pain - MDM Narrative Medical decision making narrative: Patient was tachycardic and febrile on presentation. Otherwise, she had saturation in mid 90s on 4L NC O2. She had increased work of breathing, mild tripoding, decreased breath sounds throughout. The rest of her exam was fairly benign. patien was given 3 duoneb and solumedrol. She had improvement in subjective dyspnea and in wheezing on exam after treatments. CBC showed no elevation in WBC, BMP showed no major abnormalities, troponin negative. Initial EKG showed sinus tach with some acute ST depression in V4-V6. No other acute ST elevations. D-dimer was ordered and elevated, CTA ordered and negative for PE. It did show some mucous plugging and bronchial wall thickening. Upon return from CT, patient had return of chest pain, increased work of breathing, and went into resp distress. She then went into SVT in 150s to 160s. Blood pressures became soft. Adenosine 6mg and then 12mg was pushed with brief change and then return to 150s. Patient continued to decompensate resp barker with sats dropping to 80s. Patient was subsequently intubated using monse 70mg and etomidate 20mg. After intubation, patient was given lopressor 5mg and HR dropped to 100s, blood pressure dropped to 70-80s systolic with a MAP of 65. Patient was given 2L NS bolus and pressures ana to 100s systolic. She was started empirically on levaquin 500mg. Aspirin 325 mg given on initial presentation, and tylenol ordered rectally for increased temp. Patient placed on Precedex drip for sedation (did not use propofol or versed due to fear of dropping pressures). Patient presented to [facility] including presentation, vitals, workup, and patient was accepted to ICU. pH after intubation was 7.18 and CO 2 in 80s. Peanut Vendor recommended increasing tidal volume to compensate for this change. Stable prior to admission. - Medical Records Medical records reviewed: Yes I reviewed the patient's medical records. - Lab Data Lab results reviewed: Yes I reviewed the patient's lab results. Result diagrams: 07/17/17 03:46 07/17/17 03:46 Lab Results 07/17/17 07/17/17 07/17/17 Range/Units 03:46 03:46 03:46 WBC 8.7 (4.3-11.1) K/mcL RBC 4.35 (3.82-4.97) M/mcL Hgb 11.9 (11.5-15.4) g/dL Hct 38.8 (35.3-44.9) % MCV 89.2 (83.0-100.0) fL MCH 27.4 L (28.0-33.3) pg MCHC 30.7 L (31.6-35.5) g/dL RDW 13.4 (11.5-14.5) % Plt Count 159 (140-400) K/mcL MPV 12.1 (9.4-12.4) fL Immature Gran % 0.3 (0-4) % Seg Neutrophils % 82.8 % Lymphocytes % 7.5 % Monocytes % 8.6 % Eosinophils % 0.7 % Basophils % 0.1 % Neutrophils # 7.2 (1.6-8.9) K/mcL Lymphocytes # 0.7 (0.6-4.6) K/mcL Monocytes # 0.8 (0.0-1.3) K/mcL Eosinophils # 0.1 (0.0-0.6) K/mcL Basophils # 0.0 (0.0-0.2) K/mcL PT 11.9 (9.4-12.1) Seconds INR 1.1 APTT 32.8 (26.0-36.0) Seconds D-Dimer 565 H (0-500) ng/mLFEU Sample Site ABG pH (7.32-7.45) pH Units ABG pCO2 (35-45) mmHg ABG pO2 (85-104) mmHg ABG HCO3 (21-27) mEq/L ABG Total CO2 (20-26) mEq/L ABG O2 Saturation (95-98) % ABG Base Excess (-2 to 3) mEq/L David Test Respiration Rate O2 Delivery Device Blood Gas Modality Inspired O2 (1-15=lpm [id number]=%) Tidal Volume cc PEEP cm H2O Sodium 133 L (136-145) mEq/L Potassium 4.0 (3.5-5.1) mEq/L Chloride 95 L (98-107) mEq/L Carbon Dioxide 31 H (23-29) mEq/L BUN 21 H (6-20) mg/dL Creatinine 0.62 (0.60-1.20) mg/dL Est GFR ( Amer) > 60 (> 60) Est GFR (Non-Af Amer) > 60 (> 60) BUN/Creatinine Ratio 34 H (6-26) Glucose 126 H (70-105) mg/dL Calculated Osmolality 281 (280-300) Lactic Acid (0.5-2.2) mmol/L Calcium 9.2 (8.6-10.3) mg/dL Troponin I < 0.03 (< 0.04) ng/mL 07/17/17 07/17/17 Range/Units 03:46 06:23 WBC (4.3-11.1) K/mcL RBC (3.82-4.97) M/mcL Hgb (11.5-15.4) g/dL Hct (35.3-44.9) % MCV (83.0-100.0) fL MCH (28.0-33.3) pg MCHC (31.6-35.5) g/dL RDW (11.5-14.5) % Plt Count (140-400) K/mcL MPV (9.4-12.4) fL Immature Gran % (0-4) % Seg Neutrophils % % Lymphocytes % % Monocytes % % Eosinophils % % Basophils % % Neutrophils # (1.6-8.9) K/mcL Lymphocytes # (0.6-4.6) K/mcL Monocytes # (0.0-1.3) K/mcL Eosinophils # (0.0-0.6) K/mcL Basophils # (0.0-0.2) K/mcL PT (9.4-12.1) Seconds INR APTT (26.0-36.0) Seconds D-Dimer (0-500) ng/mLFEU Sample Site R Radial ABG pH 7.18 L* (7.32-7.45) pH Units ABG pCO2 82 H* (35-45) mmHg ABG pO2 115 H (85-104) mmHg ABG HCO3 31 H (21-27) mEq/L ABG Total CO2 33 H (20-26) mEq/L ABG O2 Saturation 97 (95-98) % ABG Base Excess 0 (-2 to 3) mEq/L David Test N/A Respiration Rate 14 O2 Delivery Device Adult Vent Blood Gas Modality PRVC Inspired O2 60.0 (1-15=lpm [id number]=%) Tidal Volume 350 cc PEEP 5 cm H2O Sodium (136-145) mEq/L Potassium (3.5-5.1) mEq/L Chloride (98-107) mEq/L Carbon Dioxide (23-29) mEq/L BUN (6-20) mg/dL Creatinine (0.60-1.20) mg/dL Est GFR ( Amer) (> 60) Est GFR (Non-Af Amer) (> 60) BUN/Creatinine Ratio (6-26) Glucose (70-105) mg/dL Calculated Osmolality (280-300) Lactic Acid 0.3 L (0.5-2.2) mmol/L Calcium (8.6-10.3) mg/dL Troponin I (< 0.04) ng/mL - Radiology Data Radiology results reviewed: Yes I reviewed the patient's radiology results. Chest CTA 07/17/17 04:38 IMPRESSION: No evidence of acute pulmonary embolism. Bronchial wall thickening and mucous plugging, possibly related to bronchitis. Severe emphysema and scarring in the posterior aspect of the right upper lobe, unchanged. D/ / Noe Casanova MD / Noe Casanova MD Interpreting Provider: Noe Casanova MD Chest X-Ray 07/17/17 05:50 IMPRESSION: Endotracheal tube tip is low lying, terminating approximately 1.5 cm above the maryam. D/ / Noe Casanova MD / Noe Casanova MD Interpreting Provider: Noe Casanova MD - EKG Data EKG attestation: Yes I reviewed and interpreted this EKG. EKG results narrative: 07/17/2017 at 03:24. Sinus tachycardia. Rate 122. [place] 133. QRS 98. QTC 410. Normal axis. ST depression in V4 through V6 that is new from previous EKG. Critical Care Time Critical Care Time: Yes Total Critical Care Time: 90 Attestation: Critical care performed: Time is exclusive of separately billable procedures. Time includes: direct patient care, patient reassessment, coordination of patient care, interpretation of data (laboratory data, radiology data, and respiratory data), review of patient's medical records, medical consultation and documentation of patient care. Procedures included in critical care time: Procedures excluded from critical care time: Endotracheal intubation S.B.A.R. - S.B.A.R. Situation: Demographics, MOA Background: Presenting Complaint, Relevant PMH, Meds, & Allergies Assessment: Vital Signs, Course and respsone to treatment, Exam Concerns, Patient/Family Expectation, Pertinant Lab Results, Outstanding Labs Recommendation: Barrier(s) to disposition, Recommendation based on pending studies, treatments, or consults Clarita Report Given to: Dr. Michelle Otto Repor Time: 07:00 Attestation Statement - Attestation Attestation: I, Tahir Barrett MD, personally evaluated this patient and discussed their management with the resident physician. I reviewed the resident's note and agree with the documented findings, medical decision making, and plan of care. 57-year-old female presents to the emergency department from a local retirement for complaint of chest pain and shortness of breath. Patient has been having intermittent chest pains for the past 2 weeks. They have been giving her nitroglycerin frequently at the retirement. A complaint tonight there was increased shortness of breath. She states that for several weeks she has had increased shortness of breath with increased cough. Some sputum production which is usually clear but occasionally green. She has not noticed any fever. She has required increasing her oxygen. On examination patient is a well-developed thin small female in mild respiratory distress. She is alert and oriented 3. There is no cyanosis or diaphoresis. Breath sounds are decreased bilaterally. There are a few rales in the right mid to lower lung. Some scattered expiratory wheezes. Heart regular with a mild tachycardia. Abdomen soft and nontender with normal bowel sounds. No pedal edema. Labs reviewed. Mildly elevated d-dimer. Chest x-ray negative. EKG showed a sinus tachycardia with some ST segment depressions in V4 and V5 and V6. CTA of the chest was obtained and showed: No evidence of acute pulmonary embolism. Bronchial wall thickening and mucus plugging, possibly related to bronchitis. Severe emphysema and scarring in the posterior aspect of the right upper lobe, unchanged. After patient returned from her CTA she began complaining of some increased pain in her upper chest and increased shortness of breath. She then developed SVT with a heart rate up into the 150-160 range. She became markedly more short of breath with tight diffuse bilateral inspiratory and expiratory wheezes. She became lethargic and mottled. Patient received adenosine 6 mg followed by 12 mg with no conversion and her SVT. She was then intubated orally by Dr. Segura due to her rapidly decreasing respiratory status. She was placed on a ventilator and received a DuoNeb treatment with improvement in her respiratory status. She also received Lopressor 5 mg for her tachycardia. This did improve her heart rate down to the about 100-110 range however it also dropped her blood pressure. Blood pressure improved with IV fluids. The [facility] infrastructure architect, Dr. Martinez, was consulted and accepted admission of the patient to ICU.
[2017-07-17] MEDS ORDERED: methylPREDNISolone 125 MG/2 ML VIAL IVP ONE (03:28)
[2017-07-17] MEDS ORDERED: Ipratropium/Albuterol Neb 3 ML IH ONE ×2 (03:28→06:38)
[2017-07-17 03:57] LABS: Basophils % 0.1 %; Eosinophils # 0.1 K/mcL (0.0-0.6); Eosinophils % 0.7 %; Hematocrit 38.8 % (35.3-44.9); Hemoglobin 11.9 g/dL (11.5-15.4); Immature Granulocytes % 0.3 % (0-4); Lymphocytes # 0.7 K/mcL (0.6-4.6); Lymphocytes % 7.5 %; Mean Corpuscular HGB Conc 30.7 g/dL (31.6-35.5); Mean Corpuscular Hemoglobin 27.4 pg (28.0-33.3); Mean Corpuscular Volume 89.2 fL (83.0-100.0); Mean Platelet Volume 12.1 fL (9.4-12.4); Monocytes # 0.8 K/mcL (0.0-1.3); Monocytes % 8.6 %; Neutrophils # 7.2 K/mcL (1.6-8.9); Platelet Count 159 K/mcL (140-400); Red Blood Count 4.35 M/mcL (3.82-4.97); Red Cell Distribution Width 13.4 % (11.5-14.5); Segmented Neutrophils % 82.8 %
[2017-07-17 04:10] LABS: INR 1.1; Prothrombin Time 11.9 Seconds (9.4-12.1)
[2017-07-17 04:13] LABS: Activated Partial Thrombo Time 32.8 Seconds (26.0-36.0)
[2017-07-17 04:21] LABS: BUN/Creatinine Ratio 34 (6-26); Blood Urea Nitrogen 21 mg/dL (6-20); Calcium 9.2 mg/dL (8.6-10.3); Carbon Dioxide 31 mEq/L (23-29); Chloride 95 mEq/L (98-107); Glucose 126 mg/dL (70-105); Osmolality,Calculated 281 (280-300); Sodium 133 mEq/L (136-145); eGFR For African Americans > 60 (> 60); eGFR For Non-African Americans > 60 (> 60)
[2017-07-17 04:22] LABS: Troponin I < 0.03 ng/mL (< 0.04)
[2017-07-17] MEDS ORDERED: Acetaminophen 325 MG TABLET PO ONE (04:35)
[2017-07-17] MEDS ORDERED: Aspirin 325 MG TABLET PO ONE ×2 (05:08→13:18)
[2017-07-17] MEDS ORDERED: *HR* FentaNYL (PF) 100 MCG/2 ML VIAL IVP ONE (05:08)
[2017-07-17] MEDS ORDERED: *HR* Adenosine 6 MG/2 ML VIAL IVP ONE ×2 (05:20→05:39)
[2017-07-17] MEDS ORDERED: *HR* Adenosine 6 MG/2 ML SYRINGE IVP ONE ×2 (05:21→12:29)
[2017-07-17] MEDS ORDERED: 0.9 % Sodium Chloride 1,000 ML ONE (05:22)
[2017-07-17] MEDS ORDERED: *HR* Metoprolol 5 MG/5 ML VIAL IVP ONE ×2 (05:39→05:47)
[2017-07-17] MEDS ORDERED: *HR* Rocuronium Bromide 50 MG/5 ML VIAL IVP ONE (05:39)
[2017-07-17] MEDS ORDERED: *HR* Etomidate 40 MG/20 ML VIAL IVP ONE (05:39)
[2017-07-17] MEDS ORDERED: Lacri-Lube 3.5 GM TUBE BOTH EYES PRN (05:51)
[2017-07-17] MEDS ORDERED: 0.9 % Sodium Chloride 1,000 ML IVC ONE ×2 (05:59→06:36)
[2017-07-17] MEDS: Dexmedetomidine HCl 400 MCG/100 ML MLS IVC SCH (06:10)
[2017-07-17 06:28] LABS: ABG Base Excess 0 mEq/L (-2 to 3); ABG HCO3 31 mEq/L (21-27); ABG Oxygen Saturation 97 % (95-98); ABG PCO2 82 mmHg (35-45); ABG PH 7.18 pH Units (7.32-7.45); ABG PO2 115 mmHg (85-104); ABG TCO2 33 mEq/L (20-26); Blood Gas Modality PRVC; Blood Gas PEEP 5 cm H2O; Blood Gas Respiration Rate 14; Blood Gas VT 350 cc
[2017-07-17] MEDS ORDERED: Ipratropium/Albuterol Neb 3 ML ONE (06:35)
[2017-07-17] MEDS ORDERED: Levofloxacin 500 MG/100 ML 500 MG/100 ML BAG IVPB ONE (06:49)
[2017-07-17] MEDS ORDERED: Acetaminophen 650 MG RECTAL SUPP RC ONE (07:30)
[2017-07-17 08:08] LABS: ABG Base Excess -1 mEq/L (-2 to 3); ABG HCO3 24 mEq/L (21-27); ABG Oxygen Saturation 99 % (95-98); ABG PCO2 43 mmHg (35-45); ABG PH 7.37 pH Units (7.32-7.45); ABG PO2 159 mmHg (85-104); ABG TCO2 26 mEq/L (20-26); Blood Gas Modality VC; Blood Gas PEEP 5 cm H2O; Blood Gas Respiration Rate 10; Blood Gas VT 550 cc
--- NOTE | 2017-07-17 08:13 | Pulmonology History & Physical ---
<Mann Martinez M - Last Filed: 07/17/17 10:29> Date of Encounter: 07/17/17 History of Present Illness HPI: Ms. Vaughn is a 57 year old female Medications and Allergies Aspirin Enteric Coated [Aspirin EC] 81 mg PO DAILY #0 12/13/14 [History] Nitroglycerin 0.4 mg SL Q5M PRN #0 12/13/14 [History] Omeprazole [PriLOSEC] 20 mg PO BID #0 12/13/14 [History] Thiamine (B-1) [Vitamin B-1] 100 mg PO DAILY #0 12/13/14 [History] Multivitamin/Iron/Folic Acid [Centrum Complete Multivit Tab] 1 tab PO DAILY [History] Cetirizine HCl [All Day Allergy] 10 mg PO DAILY PRN 09/15/16 [History] Sennosides/Docusate Sodium [Senna-S Tablet] 1 tab PO BID PRN 09/15/16 [History] Simvastatin [Zocor] 10 mg PO HS 09/15/16 [History] Magnesium Oxide [Mgo] 400 mg PO DAILY 09/16/16 [History] Albuterol Sulfate [Albuterol Inhaler] 1 puff IH Q4H PRN #3 inhaler 09/19/16 [Rx] Ferrous Sulfate 325 mg PO TIDWM tablet 09/28/16 [Rx] amLODIPine [Norvasc] 5 mg PO DAILY tablet 09/28/16 [Rx] Budesonide/Formoterol 160/4.5 [Symbicort 160/4.5] 1 puff IH BIDR 02/22/17 [ History] Umeclidinium [place] [Incruse Ellipta] 62.5 mcg IH DAILY 02/22/17 [History] Guaifenesin [Mucus Relief] 400 mg PO BID 03/08/17 [History] Metoprolol [Lopressor] 25 mg PO DAILY 03/08/17 [History] Albuterol Neb [Proventil Neb] 2.5 mg IH [id number] PRN #120 vial 03/11/17 [Rx] Acetaminophen [Non-Aspirin] 1 - 2 tab PO Q4H PRN 07/17/17 [History] Furosemide [Lasix] 20 mg PO DAILY 07/17/17 [History] Melatonin [Melatin] 3 mg PO HS 07/17/17 [History] PARoxetine HCl [Paroxetine HCl] 40 mg PO DAILY 07/17/17 [History] acetaZOLAMIDE [Diamox] 250 mg PO DAILY 07/17/17 [History] 3 Allergy/AdvReac Type Severity Reaction Status Date / Time No Known Allergies Allergy Verified 03/08/17 01:46 All Systems: The remainder of the systems were reviewed and are negative Physical Examination Vital Signs: Vital Signs, Last 4 Hours Temp Pulse Resp BP Pulse Ox 07/17/17 10:00 90 10 79/62 100 07/17/17 08:45 98 F 105 10 79/55 100 07/17/17 08:22 10 90/64 100 07/17/17 08:15 98 F 105 10 90/64 100 07/17/17 07:39 10 83/67 07/17/17 07:35 10 83/67 100 Results - Laboratory Findings CBC and BMP: 07/17/17 03:46 07/17/17 03:46 ABG ABG pH 7.37 pH Units (7.32-7.45) D 07/17/17 08:05 ABG pCO2 43 mmHg (35-45) D 07/17/17 08:05 ABG pO2 159 mmHg (85-104) H D 07/17/17 08:05 ABG O2 Saturation 99 % (95-98) H 07/17/17 08:05 PT/INR, D-dimer PT 11.9 Seconds (9.4-12.1) 07/17/17 03:46 D-Dimer 565 ng/mLFEU (0-500) H 07/17/17 03:46 Abnormal lab findings: Abnormal lab results MCH 27.4 pg (28.0-33.3) L 07/17/17 03:46 MCHC 30.7 g/dL (31.6-35.5) L 07/17/17 03:46 D-Dimer 565 ng/mLFEU (0-500) H 07/17/17 03:46 ABG pO2 159 mmHg (85-104) H D 07/17/17 08:05 ABG O2 Saturation 99 % (95-98) H 07/17/17 08:05 Sodium 133 mEq/L (136-145) L 07/17/17 03:46 Chloride 95 mEq/L (98-107) L 07/17/17 03:46 Carbon Dioxide 31 mEq/L (23-29) H 07/17/17 03:46 BUN 21 mg/dL (6-20) H 07/17/17 03:46 BUN/Creatinine Ratio 34 (6-26) H 07/17/17 03:46 Glucose 126 mg/dL (70-105) H 07/17/17 03:46 POC Glucose 185 (58-89) H 07/17/17 08:32 Lactic Acid 0.3 mmol/L (0.5-2.2) L 07/17/17 03:46 - Attending Attestation I examined this patient and my medical decision-making was reviewed with the Resident Physician. I agree with the documented findings, disposition and treatment plan as described except to the extent set forth below. Patient seen and examined. I was called by the emergency room physician to see this patient for the acute on chronic respiratory failure and presenting with COPD exacerbation. I've personally examined patient in the emergency room and in the ICU. Labs, radiology, chart personally reviewed. Agree with resident's history and physical, assessment, plan with following comments: CLEANER AND PRESSER: Patient does not follows commands, this could be from post intubation medications Pulmonary: Patient has been hospitalized multiple times and her CODE STATUS needs to be clarified from the longterm. I have made changes on the ventilator due to significant intrinsic PEEP and changed her respiratory rate so she can exhale for longer period of time and also increased her tidal volume with partial respond to that maneuver. Overall prognosis is very poor for this patient. Cardiovascular: Borderline hypertensive to treat her with fluid. GI: Nutrition per dietary and GI prophylaxis per routine Heme: DVT prophylaxis per routine ID: Continue antibiotics and plan to de-escalation Renal; urine out put and renal funtion reviewed Endorcine: blood glucose is monitored Lines: all lines checked and no evidence of infections Skin: skin care to prevent pressure ulcers per nursing routine care I spent 40 min of Critical Care time with this patient. It involved decision making of high complexity to assess, manipulate, and support vital organ system failure and/or to prevent further life threatening deterioration of the patient' s condition. The time involved in the performance of separately reportable procedures was not counted toward critical care time. <Herlinda Yee - Last Filed: 07/17/17 14:18> Date of Encounter: 07/17/17 Time of Encounter: 07:45 Assessment and Plan (1) Acute respiratory failure with hypoxia Current visit: No Status: Acute Patient began satting in the 80s while in SVT. Patient intubated on 07/17/17 and sedated. CXR negative. CTA negative for PE but did show bronchial wall thickening and mucous plugging with severe emphysematous changes. Troponin negative x1. plan: - Solumedrol 40mg IV Q8hrs - Duonebs scheduled Q4hrs, prn Q2hrs - Symbicort - antibiotics: Levoquin (day 1) - sedation: Precedex and Fentanyl - BNP in AM - BC pending - sputum culture ordered (2) NSTEMI (non-ST elevated myocardial infarction) Current visit: Yes Status: Acute Patient's initial troponin negative with an initial EKG showing ST depression in V3-V6. Patient went into SVT resolved with adenosine and lopressor. Patient' s repeat Troponin = 0.56. Repeat EKG showed inversion of T-waves in V2-V5. Cardiology was consulted, echo ordered, and low dose heparin drip started. Last nuclear stress test 2016, showed EF 70%, no ischemia. No echo found in [facility]. Plan: - Heparin drip - echo ordered - trend troponins - cardiology consulted (3) Acute exacerbation of chronic obstructive airways disease Current visit: No Status: Acute Hx of COPD with home meds of Incruse Ellipta, Symbicort, albuterol. Patient initially did have fever of 101.4F upon arrival. See plan above. (4) Hypotension Current visit: Yes Status: Acute Possibly 2/2 to cardiogenic shock. Currently responding to fluid bolus. Pt has powerglider. Will consider getting central line soon if BP doesn't continue to trend in the right direction with fluid boluses. Qualifiers: Hypotension type: unspecified hypotension type Qualified Code(s): I95.9 - Hypotension, unspecified (5) Diastolic heart failure Current visit: No Status: Acute Hx of diastolic CHF. Nuclear stress 09/23/16 showed EF>70%, negative for ischemia. Plan: - BNP in the AM - echo today - cardiology following Qualifiers: Heart failure chronicity: acute on chronic Qualified Code(s): I50.33 - Acute on chronic diastolic (congestive) heart failure History of Present Illness Chief complaint: SOB and CP HPI: Ms. Vaughn is a 57 year old female with a pmh of COPD on 2L, CAD s/p CABG, HTN and diastolic CHF presented to the ED from an ECF with CP and SOB worsening over the last 2 weeks. Per ED note, patient has increased oxygen requirement from 2 L nasal cannula to 4 L. Before intubation, patient was describing chest pain as dull achy, not radiating into the extremities or jaw, intermittent and worse with exertion. Patient was initially placed on 4 L nasal cannula while in the ED. EKG showed ST depression in V4-V6. CTA showed no PE. After CTA went into SVT and respiratory sats decreased to 80%. Patient was intubated and heart rate dropped into the 100s after adenosine and Lopressor were given. Patient was admitted to the ICU and placed on a precedex drip and Fentanyl for sedation. Past Med Surg Social Fam HX - Past Medical History Medical history: CHF (Diastolic), COPD (Oxygen dependent on 3 L continuously), coronary artery disease, hyperlipidemia, hypertension, myocardial infarction, other (Intubated in the past, depression, chronic respiratory failure) Psychiatric history: anxiety - Past Surgical History Surgical History: appendectomy, coronary bypass (CABG) - Social History Smoking Status: Former smoker Smokeless Tobacco Status: No Alcohol use: none Drug use: none - Family History Mother Living Status: Still Living Father Living Status: Hx Family Cardiac Disorders: Yes (Father of [place]) ROS unobtainable: due to endotracheal tube All Systems: The remainder of the systems were reviewed and are negative Physical Examination Vital Signs: Vital Signs, Last 4 Hours Resp BP Pulse Ox 07/17/17 07:39 10 83/67 07/17/17 07:35 10 83/ 100 Constitutional: intubated, OG tube present, comfortably sleeping arousable when pressing on abdomen Head: Normocephalic, atraumatic Heart: Normal, regular rate and rhythm, no murmurs Lungs: + wheezing Abdomen: Soft, nondistended, nontender, and no masses palpable, bowel sounds present and normal Extremities: No clubbing, cyanosis, or edema, capillary refill <2sec. Skin: Skin warm and dry, no lesions, no rashes, no jaundice Neurologic: GCS= 10 lines: powerglide, without signs of infeciton Results - Laboratory Findings CBC and BMP: 07/17/17 03:46 07/17/17 03:46 ABG ABG pH 7.37 pH Units (7.32-7.45) D 07/17/17 08:05 ABG pCO2 43 mmHg (35-45) D 07/17/17 08:05 ABG pO2 159 mmHg (85-104) H D 07/17/17 08:05 ABG O2 Saturation 99 % (95-98) H 07/17/17 08:05 PT/INR, D-dimer PT 11.9 Seconds (9.4-12.1) 07/17/17 03:46 D-Dimer 565 ng/mLFEU (0-500) H 07/17/17 03:46 Abnormal lab findings: Abnormal lab results MCH 27.4 pg (28.0-33.3) L 07/17/17 03:46 MCHC 30.7 g/dL (31.6-35.5) L 07/17/17 03:46 D-Dimer 565 ng/mLFEU (0-500) H 07/17/17 03:46 ABG pO2 159 mmHg (85-104) H D 07/17/17 08:05 ABG O2 Saturation 99 % (95-98) H 07/17/17 08:05 Sodium 133 mEq/L (136-145) L 07/17/17 03:46 Chloride 95 mEq/L (98-107) L 07/17/17 03:46 Carbon Dioxide 31 mEq/L (23-29) H 07/17/17 03:46 BUN 21 mg/dL (6-20) H 07/17/17 03:46 BUN/Creatinine Ratio 34 (6-26) H 07/17/17 03:46 Glucose 126 mg/dL (70-105) H 07/17/17 03:46 Lactic Acid 0.3 mmol/L (0.5-2.2) L 07/17/17 03:46
[2017-07-17] MEDS: Ipratropium/Albuterol Neb 3 ML IH SCH ×5 (08:22→23:44)
[2017-07-17] MEDS ORDERED: Ipratropium/Albuterol Neb 3 ML IH PRN (08:29)
[2017-07-17] MEDS ORDERED: Naloxone 0.4 MG/ML INJ IVP PRN (08:38)
[2017-07-17] MEDS ORDERED: Potassium Phosphate 44 MEQ in 0.9 % Sodium Chloride 250 ML IVPB PRN (09:01)
[2017-07-17] MEDS: Levofloxacin 750 MG/150 ML 750 MG/150 ML BAG IVPB SCH (09:03)
[2017-07-17] MEDS: Lacri-Lube 3.5 GM TUBE BOTH EYES SCH ×4 (09:05→21:33)
[2017-07-17] MEDS: Pantoprazole 40 MG VIAL IVP SCH (09:10)
[2017-07-17] MEDS: Chlorhexidine Rinse 15 ML MOUTHWASH MM SCH ×2 (09:10→21:33)
[2017-07-17] MEDS ORDERED: *HR* Rocuronium Bromide 100 MG/10 ML VIAL IVC ONE (09:44)
[2017-07-17] MEDS ORDERED: *HR* Etomidate 20 MG/10 ML AMPUL IVP ONE (09:44)
[2017-07-17] MEDS: FentaNYL (PF) 1,000 MCG in 0.9 % Sodium Chloride 80 ML IVC SCH (09:44)
[2017-07-17] MEDS ORDERED: D5% in Water 1,000 ML IVC PRN (10:41)
[2017-07-17] MEDS ORDERED: *HR* Dextrose 50 % in Water (Syg) 50 ML SYRINGE IVP PRN (10:41)
[2017-07-17] MEDS ORDERED: Dextrose Gel 15 GM/37.5 ML TUBE PO PRN ×2 (10:41)
[2017-07-17] MEDS ORDERED: *HR* Heparin 5,000 UNIT/ML VIAL SQ SCH (10:45)
[2017-07-17] MEDS: Budesonide/Formoterol 160/4.5 MDI IH SCH ×2 (11:06→19:48)
[2017-07-17 11:17] LABS: Bilirubin,Urine Negative (Negative); Blood,Urine Negative (Negative); Clarity,Urine Clear (Clear); Color,Urine Yellow (Yellow); Glucose,Urine (UA) Normal (Normal); Ketones,Urine Negative (Negative); Leukocyte Esterase,Urine Negative (Negative); Nitrite,Urine Negative (Negative); PH,Urine 6.5 pH Units (5.0-8.0); Protein,Urine Trace mg/dL (Neg-Trace); Specific Gravity,Urine 1.029 (1.010-1.025); Urobilinogen,Urine Normal (Normal)
[2017-07-17 11:19] LABS: Bacteria,Urine None Seen per hpf (None-Few); Hyaline Casts,Urine None Seen per lpf (None-Few); RBC,Urine 0-3 per hpf (0-3); Squamous Epithelial Cell,Urine None Seen per lpf (None-Few); WBC,Urine 0-3 per hpf (0-3)
[2017-07-17] MEDS: Insulin LISPRO 300 UNITS/3 ML VIAL SQ SCH ×3 (11:29→21:33)
--- NOTE | 2017-07-17 12:09 | Palliative - Consult Note ---
Date of Encounter: 07/17/17 Time of Encounter: 12:00 - Assessment and Plan (1) Generalized pain Current Visit: Yes Status: Acute Assessment and plan: Continues with Fentanyl drip per ICU protocol. MOnitor. She denies pain at this time. (2) Anxiety Current Visit: No Status: Chronic Assessment and plan: Currently on Precedex. Appears calm - awake and alert. Indicating she wants ET tube out soon (3) Goals of care, counseling/discussion Current Visit: Yes Status: Acute Assessment and plan: Patient is awake and alert, nods head yes/no. Palliative team familiar with this pt from years past visits, but the last time we had consult was in October 2014. Patient at one time had completed a DNR form, BUT RESCINDED THIS and after reviewing records over several recent admissions, she has maintained FULL CODE status. 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 She has 2 sons - I believe one is incarcerated, other son Kiet is her medical power of silver service waiter, the last we knew. I printed a copy of this from [employer] and placed in his record in ICU. Phone numbers on this no longer are accurate and numbers for Kiet now listed are [phone] and [phone]. Patient at this time is nodding head "yes" when asked if she is still full code. She has consistently stated that she was ok with short term intubation, but if it decision needed made regarding trach, she would want to decide with her sons. Palliative will continue to follow - hopefully have a conversation with the patient once extubated. (4) Acute exacerbation of chronic obstructive airways disease Current Visit: No Status: Acute (5) Acute and chronic respiratory failure with hypercapnia Current Visit: No Status: Resolved Palliative-CN HPI - Data of Consult Consult date: 07/17/17 Requesting Physician: Pasquale Garcia MD Primary Care Provider: PCP NONE - Consult Narrative History of present illness: Ms. Vaughn is a 57 year old female with a long standing history of COPD, known to the palliative care team from past visits, although it appears we have not seen her since 10/24/2014. Other past medical history includes: CAD s/p CABG. HTN, CHF. She was brought to ER from [facility], where she is resident, with increasing shortness of breath that had worsened over the past 2 weeks. Patient is intubated and there is no family at the bedside, HPI pulled mostly from chart review. Patient was in the ED on 4L nasal cannula, and after CTA performed, became further hypoxic with sats in 80's and went into SVT. She was intubated and gives Adenosine and lopressor. CO2 was 82 on admission. She was admitted to ICU. Currently being treated with IV steroid/atb therapy/ bronchodilators/vent support. She is quite hypotensive today as well. Upon my visit, no family is present. She is awake and alert, and can nod head Yes/No appropriately. Indicates wants ET tube out soon. Denies any pain. Follows commands - remains restrained but can squeeze hands, moves bilateral lower extremities on command. CC: Pasquale Garcia MD Past Med Surg Social Fam HX - Past Medical History Medical history: CHF (Diastolic), COPD (Oxygen dependent on 3 L continuously), coronary artery disease, hyperlipidemia, hypertension, myocardial infarction, other (Intubated in the past, depression, chronic respiratory failure) Psychiatric history: anxiety - Past Surgical History Surgical History: appendectomy, coronary bypass (CABG) - Social History Smoking Status: Former smoker Smokeless Tobacco Status: No Alcohol use: none Drug use: none - Family History Mother History Unknown: Yes Living Status: Still Living Father History Unknown: Yes Living Status: Hx Family Cardiac Disorders: Yes (Father of [place]) Medications and Allergies Aspirin Enteric Coated [Aspirin EC] 81 mg PO DAILY #0 12/13/14 [History] Nitroglycerin 0.4 mg SL Q5M PRN #0 12/13/14 [History] Omeprazole [PriLOSEC] 20 mg PO BID #0 12/13/14 [History] Thiamine (B-1) [Vitamin B-1] 100 mg PO DAILY #0 12/13/14 [History] Multivitamin/Iron/Folic Acid [Centrum Complete Multivit Tab] 1 tab PO DAILY [History] Cetirizine HCl [All Day Allergy] 10 mg PO DAILY PRN 09/15/16 [History] Sennosides/Docusate Sodium [Senna-S Tablet] 1 tab PO BID PRN 09/15/16 [History] Simvastatin [Zocor] 10 mg PO HS 09/15/16 [History] Magnesium Oxide [Mgo] 400 mg PO DAILY 09/16/16 [History] Albuterol Sulfate [Albuterol Inhaler] 1 puff IH Q4H PRN #3 inhaler 09/19/16 [Rx] Ferrous Sulfate 325 mg PO TIDWM tablet 09/28/16 [Rx] amLODIPine [Norvasc] 5 mg PO DAILY tablet 09/28/16 [Rx] Budesonide/Formoterol 160/4.5 [Symbicort 160/4.5] 1 puff IH BIDR 02/22/17 [ History] Umeclidinium [place] [Incruse Ellipta] 62.5 mcg IH DAILY 02/22/17 [History] Guaifenesin [Mucus Relief] 400 mg PO BID 03/08/17 [History] Metoprolol [Lopressor] 25 mg PO DAILY 03/08/17 [History] Albuterol Neb [Proventil Neb] 2.5 mg IH [id number] PRN #120 vial 03/11/17 [Rx] Acetaminophen [Non-Aspirin] 1 - 2 tab PO Q4H PRN 07/17/17 [History] Furosemide [Lasix] 20 mg PO DAILY 07/17/17 [History] Melatonin [Melatin] 3 mg PO HS 07/17/17 [History] PARoxetine HCl [Paroxetine HCl] 40 mg PO DAILY 07/17/17 [History] acetaZOLAMIDE [Diamox] 250 mg PO DAILY 07/17/17 [History] 3 Allergy/AdvReac Type Severity Reaction Status Date / Time No Known Allergies Allergy Verified 03/08/17 01:46 ROS unobtainable: due to endotracheal tube Palliative Care-Exam - Constitutional Vitals: Temp Pulse Resp BP Pulse Ox 97.9 F 85 10 99/60 93 07/17/17 11:00 07/17/17 11:00 07/17/17 11:01 07/17/17 11:01 07/17/17 11:01 General appearance: Present: no acute distress - Head Head Exam: Present: normal inspection, normocephalic - Eye Eye exam: Present: normal appearance, PERRL - Respiratory Additional comments: Course wheezes throughout all lung troncoso. Remains intubated FIO2-40%, PEEP 5 - Cardiovascular Cardiovascular exam: Present: +S1 - GI/Abdominal Exam GI/Abdominal exam: Present: distended, soft - Extremities Exam Extremities exam: Present: normal capillary refill, normal inspection - Neurological Exam Neurological exam: Present: alert Additional comments: Can nod head appropriately to questions. Follows commands. FIGUEROA - Skin Skin exam: Present: dry, pallor, warm Internal Medicine - CN: Reslt - Labs CBC & Chem 7: 07/17/17 03:46 07/17/17 03:46 - ABG Interpretation ABG results: ABG ABG pH 7.37 pH Units (7.32-7.45) D 07/17/17 08:05 ABG pCO2 43 mmHg (35-45) D 07/17/17 08:05 ABG pO2 159 mmHg (85-104) H D 07/17/17 08:05 ABG O2 Saturation 99 % (95-98) H 07/17/17 08:05 PT/INR, D-dimer PT 11.9 Seconds (9.4-12.1) 07/17/17 03:46 D-Dimer 565 ng/mLFEU (0-500) H 07/17/17 03:46 - Impressions Impressions KUB X-Ray 07/17/17 08:38 IMPRESSION: OG tube tip projects over the body of the stomach. The side hole is near the expected location of the esophagogastric junction. Consider advancing by at least 6 cm. D/ / Markie Perkins MD / Markie Perkins MD Interpreting Provider: Markie Perkins MD X-Ray 07/17/17 10:21 IMPRESSION: OG tube tip projects over the distal stomach. D/ / Markie Perkins MD / Markie Perkins MD Interpreting Provider: Markie Perkins MD X-Ray 07/17/17 10:31 IMPRESSION: OG tube tip projects over the distal body of the stomach. D/ / Markie Perkins MD / Markie Perkins MD Interpreting Provider: Markie Perkins MD Consult Discharge Plan - Plan Referrals: NONE,PCP [Primary Care Provider] - Palliative Quality Palliative Quality: Screen for Code Status: Yes, Screen for Goals of Care: NA, Screen for Pain: Yes, If Pain Regimen Started, Initiate Bowel Regimen: NA, Screen for Nausea/Vomitting: NA Code Status: 07/17/17 11:52 FULL [Resuscitation Status: Active] [RES] Routine Comment: Resuscitation Status: Full Code
[2017-07-17] MEDS ORDERED: *HR* Adenosine 12 MG/4 ML VIAL IV ONE (12:29)
[2017-07-17] MEDS ORDERED: 0.9 % Sodium Chloride 500 ML ONE (12:42)
[2017-07-17] MEDS ORDERED: 0.9 % Sodium Chloride 500 ML IVC ONE (12:45)
[2017-07-17] MEDS ORDERED: Aspirin 81 MG TAB.CHEW ONE (13:20)
[2017-07-17] MEDS ORDERED: *HR* Heparin 5,000 UNIT/ML VIAL IVP ONE (13:50)
[2017-07-17] MEDS ORDERED: *HR* Heparin 5,000 UNIT/ML VIAL IVP PRN ×2 (13:50)
--- NOTE | 2017-07-17 13:57 | Cardiology Consult Note ---
<Leyda Guerra - Last Filed: 07/17/17 15:14> Date of Encounter: 07/17/17 Time of Encounter: 13:56 Assessment and Plan (1) Elevated troponin Current Visit: Yes Status: Acute Most likely demand ischemia. -troponin initially negative. Now 0.56 -Initial EKG prior to SVT was sinus tachycardia, ST depression in leads V3-V6. -Repeat EKG: NSR with non specific ST changes with T wave inversions. -LHC 01/2014: CABG 3 of 4 patent bypass grafts (SIMS LAD occluded but LAD filled from diagonal), severe [place] coronary artery disease. -Echo 09/2014: EF 55-60%, normal left ventricle structure and function plan: Echo pending, trend troponin, order BNP, continue heparin (2) Chest pain Current Visit: Yes Status: Acute Intermittent dull achy chest pain without radiation and relieved with nitro. Nuclear stress 09/23/16 showed EF>70%, negative for ischemia. CTA demonstrated severe emphysema and scarring, bronchial wall thickening and mucus plugging. No PE. EKG: NSR with non specific ST changes with T wave inversions. see plan above Qualifiers: Chest pain type: unspecified Qualified Code(s): R07.9 - Chest pain, unspecified (3) SVT (supraventricular tachycardia) Current Visit: Yes Status: Acute Acute SVT that converted back to NSR after adenosine and labetolol. (4) Diastolic heart failure Current Visit: No Status: Acute Hx of diastolic CHF Qualifiers: Heart failure chronicity: acute on chronic Qualified Code(s): I50.33 - Acute on chronic diastolic (congestive) heart failure Discussion w patient/family: The assessment and plan as outlined above was discussed with the patient and/or family members who expressed understanding and agreement. All questions were answered. Thank you for involving us in the care of your patient. Please call with any questions. History of Present Illness Consult date: 07/17/17 Requesting physician: Herlinda Yee Consult reason: SVT, possible NSTEMI Chief complaint: chest pain History of present illness: Ms. Vaughn is a 57 year old female with PMH COPD on 2L, CAD s/p CABG, HTN and diastolic CHF who presented to the ED from an ECF complaining of chest pain and shortness of breath for 2 weeks. Upon my examination the patient is intubated so history is taken from progress notes. She was given multiple doses of nitroglycerin at [facility]. In ED she was taken for a CTA and afterwards she developed increased shortness of breath and went into SVT and was given adenosine and lopressor and was converted back to NSR. Her SPO2 went to 80s and was in respiratory distress so she was intubated and then transfered to the ICU. Per ED note, prior to intubation she reported chest pain that was dull achy , not radiating into the extremities or jaw, intermittent and worse with exertion. Initial troponins were negative however after SVT they were 0.56. Initial EKG prior to SVT was sinus tachycardia, ST depression in leads V3-V6. She was started on heparin drip and and echo was ordered. Past Med Surg Social Fam HX - Past Medical History Medical history: CHF (Diastolic), COPD (Oxygen dependent on 3 L continuously), coronary artery disease, hyperlipidemia, hypertension, myocardial infarction, other (Intubated in the past, depression, chronic respiratory failure) Psychiatric history: anxiety - Past Surgical History Surgical History: appendectomy, coronary bypass (CABG) - Social History Smoking Status: Former smoker Smokeless Tobacco Status: No Alcohol use: none Drug use: none - Family History Mother History Unknown: Yes Living Status: Still Living Father History Unknown: Yes Living Status: Hx Family Cardiac Disorders: Yes (Father of [place]) Medications and Allergies Aspirin Enteric Coated [Aspirin EC] 81 mg PO DAILY #0 12/13/14 [History] Nitroglycerin 0.4 mg SL Q5M PRN #0 12/13/14 [History] Omeprazole [PriLOSEC] 20 mg PO BID #0 12/13/14 [History] Thiamine (B-1) [Vitamin B-1] 100 mg PO DAILY #0 12/13/14 [History] Multivitamin/Iron/Folic Acid [Centrum Complete Multivit Tab] 1 tab PO DAILY [History] Cetirizine HCl [All Day Allergy] 10 mg PO DAILY PRN 09/15/16 [History] Sennosides/Docusate Sodium [Senna-S Tablet] 1 tab PO BID PRN 09/15/16 [History] Simvastatin [Zocor] 10 mg PO HS 09/15/16 [History] Magnesium Oxide [Mgo] 400 mg PO DAILY 09/16/16 [History] Albuterol Sulfate [Albuterol Inhaler] 1 puff IH Q4H PRN #3 inhaler 09/19/16 [Rx] Ferrous Sulfate 325 mg PO TIDWM tablet 09/28/16 [Rx] amLODIPine [Norvasc] 5 mg PO DAILY tablet 09/28/16 [Rx] Budesonide/Formoterol 160/4.5 [Symbicort 160/4.5] 1 puff IH BIDR 02/22/17 [ History] Umeclidinium [place] [Incruse Ellipta] 62.5 mcg IH DAILY 02/22/17 [History] Guaifenesin [Mucus Relief] 400 mg PO BID 03/08/17 [History] Metoprolol [Lopressor] 25 mg PO DAILY 03/08/17 [History] Albuterol Neb [Proventil Neb] 2.5 mg IH [id number] PRN #120 vial 03/11/17 [Rx] Acetaminophen [Non-Aspirin] 1 - 2 tab PO Q4H PRN 07/17/17 [History] Furosemide [Lasix] 20 mg PO DAILY 07/17/17 [History] Melatonin [Melatin] 3 mg PO HS 07/17/17 [History] PARoxetine HCl [Paroxetine HCl] 40 mg PO DAILY 07/17/17 [History] acetaZOLAMIDE [Diamox] 250 mg PO DAILY 07/17/17 [History] 3 Allergy/AdvReac Type Severity Reaction Status Date / Time No Known Allergies Allergy Verified 03/08/17 01:46 ROS unobtainable: due to endotracheal tube All Systems Review: The remainder of the systems were reviewed and are negative Physical Examination Vital Signs, Last 4 Hours Temp Pulse Resp BP Pulse Ox 07/17/17 13:28 10 89/65 99 07/17/17 13:00 75 10 93/76 99 07/17/17 12:00 84 10 66/50 98 07/17/17 11:01 10 99/60 93 07/17/17 11:00 97.9 F 85 10 99/60 99 07/17/17 10:00 90 10 79/62 100 General: No Apparent Distress, Other (intubated) HEENT: Atraumatic Neck: No JVD Cardiac: Reg Rate and Rhythm, Normal S1 and S2 Lungs: Other (wheezing) Neuro: Other (intubated) Abdomen: Soft Skin: No rashes noted on visualized skin Extremities: No Edema Results 07/17/17 03:46 07/17/17 03:46 Lab Results 07/17/17 12:30 Troponin I 0.56 H* Consult Discharge Plan - Plan Referrals: NONE,PCP [Primary Care Provider] - <Ryan Rothman - Last Filed: 07/18/17 12:10> Date of Encounter: 07/18/17 - Attending Attestation I examined this patient and my medical decision-making was reviewed with the Resident Physician. I agree with the documented findings, disposition and treatment plan as described except to the extent set forth below. 57 YOF with COPD exacerbation, SVT, resp failure s/p intubation with elevated trops. Previous LHC occluded SIMS to LAD filling from DIAG. Recent stress test negative 09/2016. ECHO preserved EF also with down trending CE's. Continue medical management with IV heparin until extubated. No current plans for ischemic work up at this time. This likely is demand ischemia with a known occluded SIMS. Assessment and Plan Discussion w patient/family: The assessment and plan as outlined above was discussed with the patient and/or family members who expressed understanding and agreement. All questions were answered. Thank you for involving us in the care of your patient. Please call with any questions. History of Present Illness History of present illness: Ms. Vaughn is a 57 year old female All Systems Review: The remainder of the systems were reviewed and are negative Physical Examination Vital Signs, Last 4 Hours Pulse Resp BP Pulse Ox 07/18/17 11:56 95 10 77/62 98 07/18/17 11:52 99 07/18/17 11:34 10 100 07/18/17 11:00 102 10 88/71 99 07/18/17 10:45 103 10 97/84 100 07/18/17 09:00 113 25 118/78 97 Results 07/18/17 04:00 07/18/17 04:00 Lab Results 07/17/17 07/17/17 07/17/17 12:30 15:27 15:27 WBC Hgb Hct Plt Count APTT Sodium Potassium Chloride Carbon Dioxide BUN Creatinine Glucose Calcium Magnesium Troponin I 0.56 H* 0.80 H* B-Natriuretic Peptide 207 H 07/17/17 07/17/17 07/17/17 18:20 21:30 22:20 WBC Hgb Hct Plt Count APTT 230.7 H* D Sodium Potassium Chloride Carbon Dioxide BUN Creatinine Glucose Calcium Magnesium Troponin I 1.06 H* 1.03 H* B-Natriuretic Peptide 07/18/17 07/18/17 07/18/17 04:00 04:00 04:00 WBC 6.8 Hgb 9.5 L D Hct 31.5 L Plt Count 115 L APTT Sodium 138 Potassium 4.1 Chloride 107 Carbon Dioxide 26 BUN 24 H Creatinine 0.68 Glucose 211 H Calcium 8.6 Magnesium 1.8 Troponin I 0.69 H* B-Natriuretic Peptide 07/18/17 06:00 WBC Hgb Hct Plt Count APTT 111.9 H* D Sodium Potassium Chloride Carbon Dioxide BUN Creatinine Glucose Calcium Magnesium Troponin I B-Natriuretic Peptide
[2017-07-17] MEDS: Heparin 25,000 UNIT/500 ML D5W 25,000 UNIT/500 ML BAG IVC SCH (14:23)
[2017-07-17] MEDS: MethylPREDNISolone 40 MG/ML VIAL IVP SCH (15:39)
[2017-07-17] MEDS ORDERED: Perflutren Lipid Microsphere 1.3 ML in 0.9 % Sodium Chloride 8.7 ML IVP ONE (15:40)
[2017-07-17 22:53] LABS: Activated Partial Thrombo Time 230.7 Seconds (26.0-36.0)
[2017-07-17 23:32] LABS: Heparin anti-factor XA UFH 1.36 IU/mL (0.30-0.70)
[2017-07-18] MEDS: MethylPREDNISolone 40 MG/ML VIAL IVP SCH ×3 (00:02→15:04)
[2017-07-18] MEDS: Lacri-Lube 3.5 GM TUBE BOTH EYES SCH ×6 (00:02→19:32)
[2017-07-18] MEDS: Insulin LISPRO 300 UNITS/3 ML VIAL SQ SCH ×6 (00:03→19:33)
[2017-07-18] MEDS: FentaNYL (PF) 1,000 MCG in 0.9 % Sodium Chloride 80 ML IVC SCH ×2 (01:59→21:50)
[2017-07-18] MEDS ORDERED: Permethrin Cream Rinse 60 ML LIQUID TP ONE (02:37)
[2017-07-18] MEDS: Ipratropium/Albuterol Neb 3 ML IH SCH ×5 (03:31→20:07)
[2017-07-18 05:20] LABS: Hematocrit 31.5 % (35.3-44.9); Hemoglobin 9.5 g/dL (11.5-15.4); Immature Granulocytes % 0.3 % (0-4); Lymphocytes # 0.3 K/mcL (0.6-4.6); Lymphocytes % 4.6 %; Mean Corpuscular HGB Conc 30.2 g/dL (31.6-35.5); Mean Corpuscular Hemoglobin 27.1 pg (28.0-33.3); Mean Platelet Volume 12.5 fL (9.4-12.4); Monocytes # 0.4 K/mcL (0.0-1.3); Monocytes % 5.8 %; Neutrophils # 6.1 K/mcL (1.6-8.9); Nucleated Red Blood Cells 0.3 /100 WBC (0); Platelet Count 115 K/mcL (140-400); Segmented Neutrophils % 89.3 %
[2017-07-18 05:21] LABS: BUN/Creatinine Ratio 35 (6-26); Blood Urea Nitrogen 24 mg/dL (6-20); Calcium 8.6 mg/dL (8.6-10.3); Carbon Dioxide 26 mEq/L (23-29); Chloride 107 mEq/L (98-107); Glucose 211 mg/dL (70-105); Magnesium 1.8 mg/dL (1.6-2.6); Osmolality,Calculated 296 (280-300); Potassium 4.1 mEq/L (3.5-5.1); Sodium 138 mEq/L (136-145); eGFR For African Americans > 60 (> 60); eGFR For Non-African Americans > 60 (> 60)
[2017-07-18 05:36] LABS: ABG Base Excess 0 mEq/L (-2 to 3); ABG HCO3 27 mEq/L (21-27); ABG Oxygen Saturation 97 % (95-98); ABG PCO2 55 mmHg (35-45); ABG PH 7.31 pH Units (7.32-7.45); ABG PO2 98 mmHg (85-104); ABG TCO2 29 mEq/L (20-26); Blood Gas Modality PRVC; Blood Gas PEEP 5 cm H2O; Blood Gas Respiration Rate 10; Blood Gas VT 550 cc
[2017-07-18 06:19] LABS: Phosphorous 1.6 mg/dL (2.7-4.5)
[2017-07-18 06:26] LABS: VBG HCO3 27 mEq/L (21-27); VBG PCO2 60 mmHg (41-51); VBG PH 7.27 pH Units (7.32-7.42); VBG PO2 126 mmHg (25-50)
[2017-07-18 06:32] LABS: VBG HCO3 26 mEq/L (21-27); VBG Ionized Calcium 1.15 mmol/L (1.15-1.35); VBG PCO2 54 mmHg (41-51); VBG PH 7.29 pH Units (7.32-7.42); VBG PO2 164 mmHg (25-50)
[2017-07-18 07:01] LABS: Activated Partial Thrombo Time 111.9 Seconds (26.0-36.0)
[2017-07-18] MEDS: Budesonide/Formoterol 160/4.5 MDI IH SCH ×2 (07:33→20:06)
[2017-07-18 07:40] LABS: Heparin anti-factor XA UFH 0.99 IU/mL (0.30-0.70)
[2017-07-18] MEDS: Levofloxacin 750 MG/150 ML 750 MG/150 ML BAG IVPB SCH (08:38)
[2017-07-18] MEDS: Pantoprazole 40 MG VIAL IVP SCH (08:38)
[2017-07-18] MEDS: Chlorhexidine Rinse 15 ML MOUTHWASH MM SCH ×2 (08:38→19:36)
--- NOTE | 2017-07-18 09:16 | Pulmonology Progress Note ---
<Herlinda Yee - Last Filed: 07/18/17 11:52> Date of Encounter: 07/18/17 Time of Encounter: 08:30 Assessment and Plan (1) Acute respiratory failure with hypoxia Current Visit: No Status: Acute Patient began satting in the 80s while in SVT. Patient intubated on 07/17/17 and sedated. CXR negative. CTA negative for PE but did show bronchial wall thickening and mucous plugging with severe emphysematous changes. Troponin negative x1 then increased to a max of 1.06 but now trending down to 0.69. Patient extubated this morning and was on BIPAP FiO2 35%. Update: Patient reintubated at 10:15AM as patient went into SVT and worsening respiratory failure. See event note for details. plan: - Solumedrol 40mg IV Q8hrs - Duonebs scheduled Q4hrs, prn Q2hrs - Symbicort - antibiotics: Levoquin (day 2) - sedation: Precedex, Fentyanl - BNP= 207 - BC prelim no growth - sputum culture few gram + cocci (2) NSTEMI (non-ST elevated myocardial infarction) Current Visit: Yes Status: Acute Patient's initial troponin negative with an initial EKG showing ST depression in V3-V6. Patient went into SVT resolved with adenosine and lopressor. Patient' s repeat Troponin = 0.56. Repeat EKG showed inversion of T-waves in V2-V5. Cardiology was consulted, echo ordered, and low dose heparin drip started. Last nuclear stress test 2017, showed EF 70%, no ischemia. No echo found in [facility]. Plan: - Heparin drip - echo pending - cardiology consulted and believe possibly due to demand ischemia but recommend continuing heparin drip for now (3) Acute exacerbation of chronic obstructive airways disease Current Visit: No Status: Acute Hx of COPD with home meds of Incruse Ellipta, Symbicort, albuterol. Patient initially did have fever of 101.4F upon arrival but temp wnl since. See plan above. (4) Hypotension Current Visit: Yes Status: Acute Possibly 2/2 to cardiogenic shock. Pt has powerglider. Will give fluid bolus if needed. Qualifiers: Hypotension type: unspecified hypotension type Qualified Code(s): I95.9 - Hypotension, unspecified (5) Diastolic heart failure Current Visit: No Status: Acute Hx of diastolic CHF. Nuclear stress 09/23/16 showed EF>70%, negative for ischemia. Echo is pending. BNP= 207. Patient is on Lasix at home but due to low normal BP and no rales will hold Lasix for now. Plan: - echo pending - cardiology following, awaiting recommendations Qualifiers: Heart failure chronicity: acute on chronic Qualified Code(s): I50.33 - Acute on chronic diastolic (congestive) heart failure Subjective Principal diagnosis: acute respiratory failure with hypoxia Interval history: Ms. Scott is a 57-year-old female past medical history of COPD on 2 L, CAD status post CABG, and diastolic congestive heart failure found have acute respiratory failure secondary to COPD versus end STEMI. Overnight no acute events. This morning patient was extubated and is on BiPAP FiO2 35% and satting in the 90s. Patient states that this morning she is having a headache that she states that she takes Percocet for but Percocet was not found on her med list. Patient denies chest pain, dizziness, abdominal pain, nausea. Patient states that she is not hungry this morning. Patient does admit to thirst. Last BM was yesterday. Update: After extubation, patient had moderate respiratory distress with tachycardia and tachypnea on BiPAP FiO2 35%. Patient proceeded to go into SVT and was given Cardizem 5 mg. Patient had short run of V. tach and was given another 5 mg of Cardizem IVP. Patient's heart rate began to respond but patient continued increase work of breathing and decision was made to reintubate. Patient was given Etomidate 20 mg and Versed 5 mg for sedation and 7.5 tube was placed without complications. Patient's HR returned to normal range. Objective PUL Vital signs: Last Vital Signs Temp 98.1 F 07/18/17 08:00 Pulse 87 07/18/17 08:00 Resp 23 07/18/17 08:00 BP 97/65 07/18/17 08:00 Pulse Ox 97 07/18/17 08:00 Constitutional: Alert, moderate respiratory failure, well nourished, well developed. Head: Normocephalic, atraumatic Heart: Normal, regular rate and rhythm, no murmurs Lungs: + wheezing on BIPAP at 35%, tachypneic, Abdomen: Soft, mild distended, nontender, no guarding or rigidity. Extremities: No clubbing, cyanosis, or edema, radial pulse +2/4, capillary refill <2sec. Skin: Skin warm and dry, no lesions, no rashes, no jaundice Neurologic: Cranial nerves II through XII grossly intact, no focal deficits, strength 5/5 in all extremitites Psych: Cooperative with exam, answering questions appropriately Ventilator Settings Ventilator Settings: Ventilator Settings, Last 8 Hours Ventilator Mode CPAP Ventilator Mode VC+ Ventilator Mode VC+ Ventilator Mode VC+ Ventilator Mode VC+ Ventilator Mode VC+ Ventilator Mode VC+ Ventilator Mode VC+ Ventilator Mode VC+ Ventilator Mode VC+ Ventilator Tidal Volume 550 Setting Ventilator Tidal Volume 550 Setting Ventilator Tidal Volume 550 Setting Ventilator Tidal Volume 550 Setting Ventilator Tidal Volume 550 Setting Ventilator Tidal Volume 550 Setting Ventilator Tidal Volume 550 Setting Ventilator Tidal Volume 550 Setting Ventilator Tidal Volume 550 Setting Ventilator Respiratory Rate 10 Setting Ventilator Respiratory Rate 10 Setting Ventilator Respiratory Rate 10 Setting Ventilator Respiratory Rate 10 Setting Ventilator Respiratory Rate 10 Setting Ventilator Respiratory Rate 10 Setting Ventilator Respiratory Rate 10 Setting Ventilator Respiratory Rate 10 Setting Ventilator Respiratory Rate 10 Setting Actual Respiratory Rate 14 Actual Respiratory Rate 14 Actual Respiratory Rate 11 Actual Respiratory Rate 10 Actual Respiratory Rate 12 Actual Respiratory Rate 11 Actual Respiratory Rate 12 Actual Respiratory Rate 10 Actual Respiratory Rate 11 Positive End Expiratory 5 Pressure Positive End Expiratory 5 Pressure Positive End Expiratory 5 Pressure Positive End Expiratory 5 Pressure Positive End Expiratory 5 Pressure Positive End Expiratory 5 Pressure Positive End Expiratory 5 Pressure Positive End Expiratory 5 Pressure Positive End Expiratory 5 Pressure Positive End Expiratory 5 Pressure Peak Inspiratory Airway 17 Pressure Peak Inspiratory Airway 38 Pressure Peak Inspiratory Airway 35 Pressure Peak Inspiratory Airway 37 Pressure Peak Inspiratory Airway 36 Pressure Peak Inspiratory Airway 39 Pressure Peak Inspiratory Airway 38 Pressure Peak Inspiratory Airway 37 Pressure Peak Inspiratory Airway 33 Pressure Results - Laboratory Findings CBC and BMP: 07/18/17 04:00 07/18/17 04:00 ABG ABG pH 7.31 pH Units (7.32-7.45) L 07/18/17 05:33 ABG pCO2 55 mmHg (35-45) H 07/18/17 05:33 ABG pO2 98 mmHg (85-104) 07/18/17 05:33 ABG O2 Saturation 97 % (95-98) 07/18/17 05:33 PT/INR, D-dimer PT 11.9 Seconds (9.4-12.1) 07/17/17 03:46 D-Dimer 565 ng/mLFEU (0-500) H 07/17/17 03:46 Abnormal lab findings: Abnormal lab results RBC 3.50 M/mcL (3.82-4.97) L 07/18/17 04:00 Hgb 9.5 g/dL (11.5-15.4) L D 07/18/17 04:00 Hct 31.5 % (35.3-44.9) L 07/18/17 04:00 MCH 27.1 pg (28.0-33.3) L 07/18/17 04:00 MCHC 30.2 g/dL (31.6-35.5) L 07/18/17 04:00 Plt Count 115 K/mcL (140-400) L 07/18/17 04:00 MPV 12.5 fL (9.4-12.4) H 07/18/17 04:00 Lymphocytes # 0.3 K/mcL (0.6-4.6) L 07/18/17 04:00 Nucleated RBCs/100 WBC 0.3 /100 WBC (0) H 07/18/17 04:00 APTT 111.9 Seconds (26.0-36.0) H* D 07/18/17 06:00 D-Dimer 565 ng/mLFEU (0-500) H 07/17/17 03:46 Heparin Anti-Xa, Unfract 0.99 IU/mL (0.30-0.70) H 07/18/17 06:00 ABG pH 7.31 pH Units (7.32-7.45) L 07/18/17 05:33 ABG pCO2 55 mmHg (35-45) H 07/18/17 05:33 ABG Total CO2 29 mEq/L (20-26) H 07/18/17 05:33 VBG pH 7.29 pH Units (7.32-7.42) L 07/18/17 06:29 VBG pCO2 54 mmHg (41-51) H 07/18/17 06:29 VBG pO2 164 mmHg (25-50) H 07/18/17 06:29 BUN 24 mg/dL (6-20) H 07/18/17 04:00 BUN/Creatinine Ratio 35 (6-26) H 07/18/17 04:00 Glucose 211 mg/dL (70-105) H 07/18/17 04:00 POC Glucose 123 (58-89) H 07/18/17 08:24 Phosphorus 1.6 mg/dL (2.7-4.5) L 07/18/17 04:00 Troponin I 0.69 ng/mL (< 0.04) H* 07/18/17 04:00 B-Natriuretic Peptide 207 pg/mL (Less than 100) H 07/17/17 15:27 Ur Specific [place] 1.029 (1.010-1.025) H 07/17/17 05:45 - Microbiology Findings Microbiology Findings: Microbiology, Last 48 Hours 07/17/17 15:27 Sputum Culture - Preliminary Sputum - Clinical Findings Intake & Output: Intake & Output 07/17/17 07/18/17 07/18/17 23:59 07:59 15:59 Intake Total 327 / 327 630 / 630 0 / 0 Output Total 375 / 375 425 / 425 180 / 180 Balance -48 / -48 205 / 205 -180 / -180 Pulmonary Procedures - Intubation Time out performed: Yes Sedative: Versed (5mg) Mg given: 20 Laryngoscope: video scope ET tube size: 7.5 ET tube uncuffed: No Tube secured depth (cm): 22 Tube secured location: lips Tube placement confirmation: visualized tube passing through cords, equal breath sounds bilaterally, no breath sounds over epigastrium, confirmation by capnometry Patient tolerated procedure: well Intubation complications: none - VTE Documentation of Mechanical Device: Intermittent pneumatic compression device Consult Discharge Plan - Plan Referrals: NONE,PCP [Primary Care Provider] - <Mann Martinez - Last Filed: 07/18/17 11:59> Date of Encounter: 07/18/17 Objective PUL Vital signs: Last Vital Signs Temp 98.1 F 07/18/17 08:00 Pulse 102 07/18/17 11:00 Resp 10 07/18/17 11:34 BP 88/71 07/18/17 11:00 Pulse Ox 100 07/18/17 11:34 Ventilator Settings Ventilator Settings: Ventilator Settings, Last 8 Hours Ventilator Mode VC+ Ventilator Mode VC+ Ventilator Mode CPAP Ventilator Mode VC+ Ventilator Mode VC+ Ventilator Mode VC+ Ventilator Mode VC+ Ventilator Mode VC+ Ventilator Tidal Volume 550 Setting Ventilator Tidal Volume 550 Setting Ventilator Tidal Volume 550 Setting Ventilator Tidal Volume 550 Setting Ventilator Tidal Volume 550 Setting Ventilator Tidal Volume 550 Setting Ventilator Tidal Volume 550 Setting Ventilator Respiratory Rate 10 Setting Ventilator Respiratory Rate 10 Setting Ventilator Respiratory Rate 10 Setting Ventilator Respiratory Rate 10 Setting Ventilator Respiratory Rate 10 Setting Ventilator Respiratory Rate 10 Setting Ventilator Respiratory Rate 10 Setting Actual Respiratory Rate 10 Actual Respiratory Rate 10 Actual Respiratory Rate 14 Actual Respiratory Rate 14 Actual Respiratory Rate 11 Actual Respiratory Rate 10 Actual Respiratory Rate 12 Positive End Expiratory 5 Pressure Positive End Expiratory 5 Pressure Positive End Expiratory 5 Pressure Positive End Expiratory 5 Pressure Positive End Expiratory 5 Pressure Positive End Expiratory 5 Pressure Positive End Expiratory 5 Pressure Positive End Expiratory 5 Pressure Peak Inspiratory Airway 48 Pressure Peak Inspiratory Airway 46 Pressure Peak Inspiratory Airway 17 Pressure Peak Inspiratory Airway 38 Pressure Peak Inspiratory Airway 35 Pressure Peak Inspiratory Airway 37 Pressure Peak Inspiratory Airway 36 Pressure Results - Laboratory Findings CBC and BMP: 07/18/17 04:00 07/18/17 04:00 ABG ABG pH 7.31 pH Units (7.32-7.45) L 07/18/17 05:33 ABG pCO2 55 mmHg (35-45) H 07/18/17 05:33 ABG pO2 98 mmHg (85-104) 07/18/17 05:33 ABG O2 Saturation 97 % (95-98) 07/18/17 05:33 PT/INR, D-dimer PT 11.9 Seconds (9.4-12.1) 07/17/17 03:46 D-Dimer 565 ng/mLFEU (0-500) H 07/17/17 03:46 Abnormal lab findings: Abnormal lab results RBC 3.50 M/mcL (3.82-4.97) L 07/18/17 04:00 Hgb 9.5 g/dL (11.5-15.4) L D 07/18/17 04:00 Hct 31.5 % (35.3-44.9) L 07/18/17 04:00 MCH 27.1 pg (28.0-33.3) L 07/18/17 04:00 MCHC 30.2 g/dL (31.6-35.5) L 07/18/17 04:00 Plt Count 115 K/mcL (140-400) L 07/18/17 04:00 MPV 12.5 fL (9.4-12.4) H 07/18/17 04:00 Lymphocytes # 0.3 K/mcL (0.6-4.6) L 07/18/17 04:00 Nucleated RBCs/100 WBC 0.3 /100 WBC (0) H 07/18/17 04:00 APTT 111.9 Seconds (26.0-36.0) H* D 07/18/17 06:00 D-Dimer 565 ng/mLFEU (0-500) H 07/17/17 03:46 Heparin Anti-Xa, Unfract 0.99 IU/mL (0.30-0.70) H 07/18/17 06:00 ABG pH 7.31 pH Units (7.32-7.45) L 07/18/17 05:33 ABG pCO2 55 mmHg (35-45) H 07/18/17 05:33 ABG Total CO2 29 mEq/L (20-26) H 07/18/17 05:33 VBG pH 7.29 pH Units (7.32-7.42) L 07/18/17 06:29 VBG pCO2 54 mmHg (41-51) H 07/18/17 06:29 VBG pO2 164 mmHg (25-50) H 07/18/17 06:29 BUN 24 mg/dL (6-20) H 07/18/17 04:00 BUN/Creatinine Ratio 35 (6-26) H 07/18/17 04:00 Glucose 211 mg/dL (70-105) H 07/18/17 04:00 POC Glucose 123 (58-89) H 07/18/17 08:24 Phosphorus 1.6 mg/dL (2.7-4.5) L 07/18/17 04:00 Troponin I 0.69 ng/mL (< 0.04) H* 07/18/17 04:00 B-Natriuretic Peptide 207 pg/mL (Less than 100) H 07/17/17 15:27 Ur Specific [place] 1.029 (1.010-1.025) H 07/17/17 05:45 - Microbiology Findings Microbiology Findings: Microbiology, Last 48 Hours 07/17/17 15:27 Sputum Culture - Preliminary Sputum - Clinical Findings Intake & Output: Intake & Output 07/17/17 07/18/17 07/18/17 23:59 07:59 15:59 Intake Total 327 / 327 665 / 665 171 / 171 Output Total 375 / 375 425 / 425 360 / 360 Balance -48 / -48 240 / 240 -189 / -189 - Attending Attestation I examined this patient and my medical decision-making was reviewed with the Resident Physician. I agree with the documented findings, disposition and treatment plan as described except to the extent set forth below. Patient seen and examined. Labs, radiology, chart personally reviewed. Agree with resident's history and physical, assessment, plan with following comments: PERFORMANCE REPORTER: Patient follows commands before extubation and after that, however when her condition deteriorated and she was not oriented, however she has expressed she wanted to be full code, Pulmonary: Acceptable oxygenation and ventilation on a spontaneous breathing trial, however after extubation she was relatively stable and fortunately her condition suddenly deteriorated from the cardiopulmonary standpoint and she was very tachypneic with a small tidal volume on that noninvasive ventilation which was a failure for that reason she was placed on invasive mechanical ventilation after that. Patient has poor prognosis and it might be difficult to get her off the ventilator. Cardiovascular: Patient become hemodynamically unstable with SVT and also wide complex tachycardia and she was treated with Cardizem and most importantly she needed to be reintubated urgently which relatively stabilized her condition. Cardiology to see patient. GI: Nutrition per dietary and GI prophylaxis per routine Heme: DVT prophylaxis per routine ID: Continue antibiotics and plan to de-escalation Renal; urine out put and renal funtion reviewed Endorcine: blood glucose is monitored Lines: all lines checked and no evidence of infections Skin: skin care to prevent pressure ulcers per nursing routine care I spent 40 min of Critical Care time with this patient. It involved decision making of high complexity to assess, manipulate, and support vital organ system failure and/or to prevent further life threatening deterioration of the patient' s condition. The time involved in the performance of separately reportable procedures was not counted toward critical care time.
[2017-07-18] MEDS ORDERED: *HR* Etomidate 20 MG/10 ML AMPUL IVP ONE ×2 (09:48→10:39)
[2017-07-18] MEDS ORDERED: *HR* Midazolam HCl 5 MG/5 ML VIAL IVP ONE ×2 (09:48→10:39)
--- NOTE | 2017-07-18 09:58 | Cardiology Progress Note ---
<Leyda Guerra - Last Filed: 07/18/17 10:41> Date of Encounter: 07/18/17 Time of Encounter: 09:30 Assessment and Plan (1) Elevated troponin Current Visit: Yes Status: Acute Most likely demand ischemia. -troponins 0.56, 0.80, 1.06, 1.03, 0.69 BNP 207 -Initial EKG prior to SVT was sinus tachycardia, ST depression in leads V3-V6. -Repeat EKG: NSR with non specific ST changes with T wave inversions. -C 01/2014: CABG 3 of 4 patent bypass grafts (SIMS LAD occluded but LAD filled from diagonal), severe [place] coronary artery disease. -Echo 09/2014: EF 55-60%, normal left ventricle structure and function plan: Awaiting Echo results, continue heparin and amlodipine (2) Chest pain Current Visit: Yes Status: Acute Denies chest pain at this time. Upon admission had intermittent dull achy chest pain without radiation and relieved with nitro. Nuclear stress 09/23/16 showed EF>70%, negative for ischemia. CTA demonstrated severe emphysema and scarring, bronchial wall thickening and mucus plugging. No PE. EKG: NSR with non specific ST changes with T wave inversions. see plan above Qualifiers: Chest pain type: unspecified Qualified Code(s): R07.9 - Chest pain, unspecified (3) SVT (supraventricular tachycardia) Current Visit: Yes Status: Acute Acute SVT that converted back to NSR after adenosine and labetolol. -continue cardizem drip (4) Diastolic heart failure Current Visit: No Status: Acute Hx of diastolic CHF Qualifiers: Heart failure chronicity: acute on chronic Qualified Code(s): I50.33 - Acute on chronic diastolic (congestive) heart failure Discussion w patient/family: The assessment and plan as outlined above was discussed with the patient and/or family members who expressed understanding and agreement. All questions were answered. Thank you for involving us in the care of your patient. Please call with any questions. Subjective Principal diagnosis: acute respiratory failure with hypoxia Interval history: Patient denies chest pain or palpitations. Troponin trending (0.56, 0.8, 1.03, 0.69) Awaiting Echo results. Objective Vital Signs, Last 4 Hours Temp Pulse Resp BP Pulse Ox 07/18/17 09:00 113 25 118/78 97 07/18/17 08:00 98.1 F 90 23 97/65 97 07/18/17 07:30 23 99 07/18/17 07:27 21 99 07/18/17 07:00 105 14 110/67 97 07/18/17 06:00 85 11 106/72 97 General: Conversant, No Apparent Distress HEENT: Mucus Membranes Moist Neck: No JVD Cardiac: Normal S1 and S2, No Murmur Lungs: Normal Breath Sounds, Other (wheezing) Neuro: Alert and responsive Abdomen: Soft Skin: No rashes noted on visualized skin Musculoskeletal: No Chest Wall Tenderness Extremities: No Edema Results 07/18/17 04:00 07/18/17 04:00 Lab Results 07/17/17 07/17/17 07/17/17 12:30 15:27 15:27 WBC Hgb Hct Plt Count APTT Sodium Potassium Chloride Carbon Dioxide BUN Creatinine Glucose Calcium Magnesium Troponin I 0.56 H* 0.80 H* B-Natriuretic Peptide 207 H 07/17/17 07/17/17 07/17/17 18:20 21:30 22:20 WBC Hgb Hct Plt Count APTT 230.7 H* D Sodium Potassium Chloride Carbon Dioxide BUN Creatinine Glucose Calcium Magnesium Troponin I 1.06 H* 1.03 H* B-Natriuretic Peptide 07/18/17 07/18/17 07/18/17 04:00 04:00 04:00 WBC 6.8 Hgb 9.5 L D Hct 31.5 L Plt Count 115 L APTT Sodium 138 Potassium 4.1 Chloride 107 Carbon Dioxide 26 BUN 24 H Creatinine 0.68 Glucose 211 H Calcium 8.6 Magnesium 1.8 Troponin I 0.69 H* B-Natriuretic Peptide 07/18/17 06:00 WBC Hgb Hct Plt Count APTT 111.9 H* D Sodium Potassium Chloride Carbon Dioxide BUN Creatinine Glucose Calcium Magnesium Troponin I B-Natriuretic Peptide - VTE Documentation of Mechanical Device: Intermittent pneumatic compression device Consult Discharge Plan - Plan Referrals: NONE,PCP [Primary Care Provider] - <Ryan Rothman - Last Filed: 07/18/17 12:17> Date of Encounter: 07/18/17 Assessment and Plan (1) NSTEMI (non-ST elevated myocardial infarction) Current Visit: Yes Status: Acute I examined this patient and my medical decision-making was reviewed with the Resident Physician. I agree with the documented findings, disposition and treatment plan as described except to the extent set forth below. 57 YOF reintubated after worsening resp distress this am. Run of NSVT, with known hx of CAD. Will continue to trend CE's likely will bump. ECHO pending to help risk stratify Discussion w patient/family: The assessment and plan as outlined above was discussed with the patient and/or family members who expressed understanding and agreement. All questions were answered. Thank you for involving us in the care of your patient. Please call with any questions. Objective Vital Signs, Last 4 Hours Temp Pulse Resp BP Pulse Ox 07/18/17 12:00 98.2 F 92 10 79/65 98 07/18/17 11:56 95 10 77/62 98 07/18/17 11:52 99 07/18/17 11:34 10 100 07/18/17 11:00 102 10 88/71 99 07/18/17 10:45 103 10 97/84 100 07/18/17 09:00 113 25 118/78 97 Results 07/18/17 04:00 07/18/17 04:00 Lab Results 07/17/17 07/17/17 07/17/17 12:30 15:27 15:27 WBC Hgb Hct Plt Count APTT Sodium Potassium Chloride Carbon Dioxide BUN Creatinine Glucose Calcium Magnesium Troponin I 0.56 H* 0.80 H* B-Natriuretic Peptide 207 H 07/17/17 07/17/17 07/17/17 18:20 21:30 22:20 WBC Hgb Hct Plt Count APTT 230.7 H* D Sodium Potassium Chloride Carbon Dioxide BUN Creatinine Glucose Calcium Magnesium Troponin I 1.06 H* 1.03 H* B-Natriuretic Peptide 07/18/17 07/18/17 07/18/17 04:00 04:00 04:00 WBC 6.8 Hgb 9.5 L D Hct 31.5 L Plt Count 115 L APTT Sodium 138 Potassium 4.1 Chloride 107 Carbon Dioxide 26 BUN 24 H Creatinine 0.68 Glucose 211 H Calcium 8.6 Magnesium 1.8 Troponin I 0.69 H* B-Natriuretic Peptide 07/18/17 06:00 WBC Hgb Hct Plt Count APTT 111.9 H* D Sodium Potassium Chloride Carbon Dioxide BUN Creatinine Glucose Calcium Magnesium Troponin I B-Natriuretic Peptide
--- NOTE | 2017-07-18 10:40 | Event Note ---
<Yousuf Raza - Last Filed: 07/18/17 10:52> Date of Encounter: 07/18/17 Time of Encounter: 10:00 Prior to morning ICU rounds notified by RN elevated heart rate 150s. On the monitor it appeared to be SVT. Patient had a pulse and was alert and oriented. Her blood pressure was stable systolic 110. 5 mg Cardizem ordered and given. Patient's heart rate came down to 130s and appeared sinus tachycardia. She denied any chest pain or increase shortness of breath during this time. She remained on the BiPAP. On the monitor she had multiple intermittent runs of monomorphic ventricular tachycardia. Immediately alert team was called to the room with code cart at bedside. Pads were placed on the patient. Patient continued to have a palpable radial pulse. She was stable tachycardia. Patient given additional 5 mg Cardizem. She remained in sinus tachycardia. She appeared in more respiratory distress on the BiPAP with some belly breathing. Her oxygen saturation however remained 100%. At this time a Cardizem drip was ordered. Given her respiratory distress and tachypnea we elected to emergently intubate. Please see procedure note for further details on into patient. <Mann Martinez - Last Filed: 07/18/17 11:08> Date of Encounter: 07/18/17 I examined this patient and my medical decision-making was reviewed with the Resident Physician. I agree with the documented findings, disposition and treatment plan as described except to the extent set forth below. This was discussed with the resident and I was present during this time.
--- NOTE | 2017-07-18 10:49 | Procedure Note ---
<Herlinda Yee - Last Filed: 07/18/17 10:47> Date of procedure: 07/18/17 Pre-op diagnosis: acute respiratory failure Post-op diagnosis: same Procedure: Patient was in respiratory failure requiring intubation. This was an emergency proceedure. Palliative care and ICU team discussed with patient prior to intubation and patient agreed that she understood the possibility of reintubation and desired to still be intubated. Time out performed: Yes Sedative: Etomidate 20 mg IVP, Versed 5 mg IVP Laryngoscope: video scope ET tube size: 7.5 ET tube uncuffed: No Tube secured depth (cm): 22 cm Tube secured location: lips Tube placement confirmation: visualized tube passing through cords, equal breath sounds bilaterally, no breath sounds over epigastrium, confirmation by capnometry Patient tolerated procedure: well Intubation complications: none Resident physician: Herlinda Yee DO Attending physician: Mann Martinez DO Anesthesia: IV sedation (Etomidate 20mg IVP and Versed 5mg IVP) Was there an bookkeeping assistant present: No Estimated blood loss (cc): 0 Specimen: none Condition: critical Disposition: ICU <Mann Martinez M - Last Filed: 07/18/17 11:07> Procedure: I examined this patient and my medical decision-making was reviewed with the Resident Physician. I agree with the documented findings, disposition and treatment plan as described except to the extent set forth below. I have personally supervised the resident intubating this patient without immediate complications.
[2017-07-18 12:20] LABS: ABG Base Excess -1 mEq/L (-2 to 3); ABG HCO3 25 mEq/L (21-27); ABG Oxygen Saturation 95 % (95-98); ABG PCO2 49 mmHg (35-45); ABG PH 7.32 pH Units (7.32-7.45); ABG PO2 84 mmHg (85-104); ABG TCO2 27 mEq/L (20-26); Blood Gas Modality ASSIST CONTROL; Blood Gas PEEP 5 cm H2O; Blood Gas Respiration Rate 10; Blood Gas VT 550 cc
[2017-07-18] MEDS: amLODIPine 5 MG TABLET PO SCH (13:33)
--- NOTE | 2017-07-18 14:25 | Event Note ---
Date of Encounter: 07/18/17 Time of Encounter: 12:30 Patient was extubated this am and placed on bipap, but went into Vtach and was re-intubated within a few hours. According to primary nurse, pt did state she desired reintubation if necessary, which appears to be in alignment with her previous known wish. From past conversations, patient wanted full code, but was uncertain if she would desire tracheostomy and would want sons involved in this discussion. Palliative will f/u with pt clinical course on Friday.
[2017-07-18] MEDS: Dexmedetomidine HCl 400 MCG/100 ML MLS IVC SCH ×2 (14:47)
--- NOTE | 2017-07-18 15:19 | Event Note ---
Date of Encounter: 07/18/17 Time of Encounter: 15:20 - Cardiology Event Note Echo showed EF preserved at 60-65%, mild diastolic dysfunction, no significant valvular dysfunction, NSWMA. Per discussion with Dr. Rothman, cardiology will sign off, no further ischemic evaluation warranted, re-consult as needed, follow -up arranged. Palliative care following patient.
[2017-07-18] MEDS: Heparin 25,000 UNIT/500 ML D5W 25,000 UNIT/500 ML BAG IVC SCH (15:48)
[2017-07-19] MEDS: Ipratropium/Albuterol Neb 3 ML IH SCH ×6 (00:10→20:14)
[2017-07-19] MEDS: Insulin LISPRO 300 UNITS/3 ML VIAL SQ SCH ×7 (00:35→23:59)
[2017-07-19] MEDS: MethylPREDNISolone 40 MG/ML VIAL IVP SCH ×3 (00:35→15:58)
[2017-07-19] MEDS: Lacri-Lube 3.5 GM TUBE BOTH EYES SCH ×7 (00:35→23:55)
[2017-07-19] MEDS: Dexmedetomidine HCl 400 MCG/100 ML MLS IVC SCH ×2 (03:03→15:57)
[2017-07-19 04:55] LABS: VBG Ionized Calcium 1.08 mmol/L (1.15-1.35)
[2017-07-19 04:56] LABS: Hemoglobin 9.4 g/dL (11.5-15.4); Mean Corpuscular HGB Conc 30.3 g/dL (31.6-35.5); Mean Corpuscular Hemoglobin 27.3 pg (28.0-33.3); Mean Corpuscular Volume 90.1 fL (83.0-100.0); Mean Platelet Volume 12.9 fL (9.4-12.4); Platelet Count 106 K/mcL (140-400); Red Blood Count 3.44 M/mcL (3.82-4.97); Red Cell Distribution Width 14.3 % (11.5-14.5)
[2017-07-19 05:17] LABS: BUN/Creatinine Ratio 32 (6-26); Blood Urea Nitrogen 21 mg/dL (6-20); Calcium 8.8 mg/dL (8.6-10.3); Carbon Dioxide 27 mEq/L (23-29); Chloride 105 mEq/L (98-107); Glucose 135 mg/dL (70-105); Magnesium 2.1 mg/dL (1.6-2.6); Osmolality,Calculated 295 (280-300); Phosphorous 2.3 mg/dL (2.7-4.5); Potassium 4.6 mEq/L (3.5-5.1); Sodium 140 mEq/L (136-145); eGFR For African Americans > 60 (> 60); eGFR For Non-African Americans > 60 (> 60)
[2017-07-19 05:19] LABS: ABG Base Excess 6 mEq/L (-2 to 3); ABG HCO3 31 mEq/L (21-27); ABG Oxygen Saturation 98 % (95-98); ABG PCO2 44 mmHg (35-45); ABG PH 7.45 pH Units (7.32-7.45); ABG PO2 100 mmHg (85-104); ABG TCO2 32 mEq/L (20-26); Blood Gas Modality PRVC; Blood Gas PEEP 5 cm H2O; Blood Gas Respiration Rate 10; Blood Gas VT 550 cc
[2017-07-19] MEDS: FentaNYL (PF) 1,000 MCG in 0.9 % Sodium Chloride 80 ML IVC SCH ×3 (05:24→20:39)
[2017-07-19] MEDS: Budesonide/Formoterol 160/4.5 MDI IH SCH ×2 (07:17→20:13)
[2017-07-19] MEDS: Chlorhexidine Rinse 15 ML MOUTHWASH MM SCH ×2 (07:53→20:34)
[2017-07-19] MEDS: Pantoprazole 40 MG VIAL IVP SCH (07:54)
[2017-07-19] MEDS: Levofloxacin 750 MG/150 ML 750 MG/150 ML BAG IVPB SCH (07:59)
[2017-07-19] MEDS: *HR* Midazolam HCl 2 MG/2 ML VIAL IVP PRN ×2 (08:54→13:07)
--- NOTE | 2017-07-19 09:30 | Pulmonology Progress Note ---
Date of Encounter: 07/19/17 Time of Encounter: 07:50 Assessment and Plan (1) Acute exacerbation of chronic obstructive airways disease Current Visit: No Status: Acute Patient with advanced lung disease and she failed her spontaneous breathing trial which is most likely due to her underlying COPD exacerbation and poor prognosis. Continue vent support and bronchodilators with empiric antibiotics and steroid and hoping she will respond to the treatment. I suspect her condition may not improve and she asked her CODE STATUS to remain full and she may need tracheostomy. (2) Acute and chronic respiratory failure with hypercapnia Current Visit: No Status: Resolved Subjective Principal diagnosis: acute respiratory failure with hypoxia Interval history: Patient failed her spontaneous breathing trial and she still having tremor. Objective PUL Vital signs: Last Vital Signs Temp 98.5 F 07/19/17 08:15 Pulse 84 07/19/17 09:00 Resp 10 07/19/17 09:00 BP 121/90 07/19/17 09:00 Pulse Ox 96 07/19/17 09:00 General appearance: appears uncomfortable Eyes: nonicteric Neck: supple Effort: mildly labored Auscultation: bilateral: diminished breath sounds Percussion: bilateral: not dull Cardiovascular: irregular rhythm Gastrointestinal: normoactive bowel sounds, non-distended Extremities: no cyanosis unable to assess due to mental status Ventilator Settings Ventilator Settings: Ventilator Settings, Last 8 Hours Ventilator Mode VC+ Ventilator Mode VC+ Ventilator Mode VC+ Ventilator Mode VC+ Ventilator Mode VC+ Ventilator Mode VC+ Ventilator Mode VC+ Ventilator Mode VC+ Ventilator Mode VC+ Ventilator Mode VC+ Ventilator Mode VC+ Ventilator Mode VC+ Ventilator Mode VC+ Ventilator Tidal Volume 500 Setting Ventilator Tidal Volume 550 Setting Ventilator Tidal Volume 550 Setting Ventilator Tidal Volume 550 Setting Ventilator Tidal Volume 550 Setting Ventilator Tidal Volume 550 Setting Ventilator Tidal Volume 550 Setting Ventilator Tidal Volume 550 Setting Ventilator Tidal Volume 550 Setting Ventilator Tidal Volume 550 Setting Ventilator Tidal Volume 550 Setting Ventilator Tidal Volume 550 Setting Ventilator Tidal Volume 550 Setting Ventilator Respiratory Rate 10 Setting Ventilator Respiratory Rate 10 Setting Ventilator Respiratory Rate 10 Setting Ventilator Respiratory Rate 10 Setting Ventilator Respiratory Rate 10 Setting Ventilator Respiratory Rate 10 Setting Ventilator Respiratory Rate 10 Setting Ventilator Respiratory Rate 10 Setting Ventilator Respiratory Rate 10 Setting Ventilator Respiratory Rate 10 Setting Ventilator Respiratory Rate 10 Setting Ventilator Respiratory Rate 10 Setting Ventilator Respiratory Rate 10 Setting Actual Respiratory Rate 10 Actual Respiratory Rate 10 Actual Respiratory Rate 10 Actual Respiratory Rate 10 Actual Respiratory Rate 10 Actual Respiratory Rate 10 Actual Respiratory Rate 10 Actual Respiratory Rate 10 Actual Respiratory Rate 10 Actual Respiratory Rate 10 Actual Respiratory Rate 10 Actual Respiratory Rate 10 Positive End Expiratory 5 Pressure Positive End Expiratory 5 Pressure Positive End Expiratory 5 Pressure Positive End Expiratory 5 Pressure Positive End Expiratory 5 Pressure Positive End Expiratory 5 Pressure Positive End Expiratory 5 Pressure Positive End Expiratory 5 Pressure Positive End Expiratory 5 Pressure Positive End Expiratory 5 Pressure Positive End Expiratory 5 Pressure Positive End Expiratory 5 Pressure Positive End Expiratory 5 Pressure Peak Inspiratory Airway 42 Pressure Peak Inspiratory Airway 47 Pressure Peak Inspiratory Airway 46 Pressure Peak Inspiratory Airway 49 Pressure Peak Inspiratory Airway 50 Pressure Peak Inspiratory Airway 50 Pressure Peak Inspiratory Airway 43 Pressure Peak Inspiratory Airway 44 Pressure Peak Inspiratory Airway 45 Pressure Peak Inspiratory Airway 51 Pressure Peak Inspiratory Airway 44 Pressure Peak Inspiratory Airway 46 Pressure Results - Laboratory Findings CBC and BMP: 07/19/17 04:25 07/19/17 04:25 ABG ABG pH 7.45 pH Units (7.32-7.45) 07/19/17 05:15 ABG pCO2 44 mmHg (35-45) 07/19/17 05:15 ABG pO2 100 mmHg (85-104) 07/19/17 05:15 ABG O2 Saturation 98 % (95-98) 07/19/17 05:15 PT/INR, D-dimer PT 11.9 Seconds (9.4-12.1) 07/17/17 03:46 D-Dimer 565 ng/mLFEU (0-500) H 07/17/17 03:46 Abnormal lab findings: Abnormal lab results RBC 3.44 M/mcL (3.82-4.97) L 07/19/17 04:25 Hgb 9.4 g/dL (11.5-15.4) L 07/19/17 04:25 Hct 31.0 % (35.3-44.9) L 07/19/17 04:25 MCH 27.3 pg (28.0-33.3) L 07/19/17 04:25 MCHC 30.3 g/dL (31.6-35.5) L 07/19/17 04:25 Plt Count 106 K/mcL (140-400) L 07/19/17 04:25 MPV 12.9 fL (9.4-12.4) H 07/19/17 04:25 Lymphocytes # 0.3 K/mcL (0.6-4.6) L 07/18/17 04:00 Nucleated RBCs/100 WBC 0.3 /100 WBC (0) H 07/18/17 04:00 APTT 54.7 Seconds (26.0-36.0) H 07/19/17 04:33 D-Dimer 565 ng/mLFEU (0-500) H 07/17/17 03:46 Heparin Anti-Xa, Unfract 0.99 IU/mL (0.30-0.70) H 07/18/17 06:00 ABG HCO3 31 mEq/L (21-27) H 07/19/17 05:15 ABG Total CO2 32 mEq/L (20-26) H 07/19/17 05:15 ABG Base Excess 6 mEq/L (-2 to 3) H 07/19/17 05:15 VBG pH 7.29 pH Units (7.32-7.42) L 07/18/17 06:29 VBG pCO2 54 mmHg (41-51) H 07/18/17 06:29 VBG pO2 164 mmHg (25-50) H 07/18/17 06:29 BUN 21 mg/dL (6-20) H 07/19/17 04:25 BUN/Creatinine Ratio 32 (6-26) H 07/19/17 04:25 Glucose 135 mg/dL (70-105) H 07/19/17 04:25 POC Glucose 131 (58-89) H 07/19/17 07:38 Venous Ioniz Calcium 1.08 mmol/L (1.15-1.35) L 07/19/17 04:39 Phosphorus 2.3 mg/dL (2.7-4.5) L 07/19/17 04:25 Troponin I 0.69 ng/mL (< 0.04) H* 07/18/17 04:00 B-Natriuretic Peptide 207 pg/mL (Less than 100) H 07/17/17 15:27 Ur Specific [place] 1.029 (1.010-1.025) H 07/17/17 05:45 - Microbiology Findings Microbiology Findings: Microbiology, Last 48 Hours 07/17/17 15:27 Sputum Culture - Preliminary Sputum - Clinical Findings Intake & Output: Intake & Output 07/18/17 07/19/17 07/19/17 23:59 07:59 15:59 Intake Total 83 / 83 709 / 709 Output Total 150 / 150 250 / 250 150 / 150 Balance -67 / -67 459 / 459 -150 / -150 - VTE Documentation of Mechanical Device: Intermittent pneumatic compression device Consult Discharge Plan - Plan Referrals: NONE,PCP [Primary Care Provider] -
[2017-07-19 12:08] LABS: VBG Ionized Calcium 1.14 mmol/L (1.15-1.35)
[2017-07-19] MEDS: Heparin 25,000 UNIT/500 ML D5W 25,000 UNIT/500 ML BAG IVC SCH (17:51)
[2017-07-20] MEDS: MethylPREDNISolone 40 MG/ML VIAL IVP SCH ×3 (00:01→15:33)
[2017-07-20] MEDS: Ipratropium/Albuterol Neb 3 ML IH SCH ×7 (00:26→23:45)
[2017-07-20 03:50] LABS: Hematocrit 31.1 % (35.3-44.9); Hemoglobin 9.3 g/dL (11.5-15.4); Mean Corpuscular HGB Conc 29.9 g/dL (31.6-35.5); Mean Corpuscular Volume 90.1 fL (83.0-100.0); Mean Platelet Volume 12.4 fL (9.4-12.4); Platelet Count 108 K/mcL (140-400); Red Blood Count 3.45 M/mcL (3.82-4.97); Red Cell Distribution Width 14.4 % (11.5-14.5)
[2017-07-20 04:07] LABS: BUN/Creatinine Ratio 38 (6-26); Blood Urea Nitrogen 26 mg/dL (6-20); Carbon Dioxide 29 mEq/L (23-29); Chloride 104 mEq/L (98-107); Glucose 123 mg/dL (70-105); Osmolality,Calculated 298 (280-300); Potassium 4.2 mEq/L (3.5-5.1); Sodium 141 mEq/L (136-145); eGFR For African Americans > 60 (> 60); eGFR For Non-African Americans > 60 (> 60)
[2017-07-20] MEDS: Insulin LISPRO 300 UNITS/3 ML VIAL SQ SCH ×5 (04:16→22:29)
[2017-07-20] MEDS: Lacri-Lube 3.5 GM TUBE BOTH EYES SCH ×5 (04:17→20:00)
[2017-07-20] MEDS: FentaNYL (PF) 1,000 MCG in 0.9 % Sodium Chloride 80 ML IVC SCH ×4 (04:22→22:31)
[2017-07-20 04:31] LABS: Magnesium 2.1 mg/dL (1.6-2.6); Phosphorous 3.5 mg/dL (2.7-4.5)
[2017-07-20 05:06] LABS: ABG Base Excess 6 mEq/L (-2 to 3); ABG HCO3 32 mEq/L (21-27); ABG Oxygen Saturation 96 % (95-98); ABG PCO2 52 mmHg (35-45); ABG PO2 87 mmHg (85-104); ABG TCO2 34 mEq/L (20-26); Blood Gas Modality VC; Blood Gas PEEP 5 cm H2O; Blood Gas Respiration Rate 10; Blood Gas VT 500 cc
[2017-07-20] MEDS: Budesonide/Formoterol 160/4.5 MDI IH SCH ×2 (07:10→19:52)
--- NOTE | 2017-07-20 08:08 | Pulmonology Progress Note ---
<Mann Martinez M - Last Filed: 07/20/17 09:01> Date of Encounter: 07/20/17 Assessment and Plan (1) Acute exacerbation of chronic obstructive airways disease Current Visit: No Status: Acute (2) Acute and chronic respiratory failure with hypercapnia Current Visit: No Status: Resolved Objective PUL Vital signs: Last Vital Signs Temp 97.9 F 07/20/17 08:25 Pulse 116 07/20/17 08:00 Resp 10 07/20/17 08:00 BP 116/86 07/20/17 08:00 Pulse Ox 94 07/20/17 08:00 Ventilator Settings Ventilator Settings: Ventilator Settings, Last 8 Hours Ventilator Mode VC+ Ventilator Mode VC+ Ventilator Mode VC+ Ventilator Mode VC+ Ventilator Mode VC+ Ventilator Mode VC+ Ventilator Mode VC+ Ventilator Mode VC+ Ventilator Mode VC+ Ventilator Mode VC+ Ventilator Mode VC+ Ventilator Tidal Volume 500 Setting Ventilator Tidal Volume 500 Setting Ventilator Tidal Volume 500 Setting Ventilator Tidal Volume 500 Setting Ventilator Tidal Volume 500 Setting Ventilator Tidal Volume 500 Setting Ventilator Tidal Volume 500 Setting Ventilator Tidal Volume 500 Setting Ventilator Tidal Volume 500 Setting Ventilator Tidal Volume 500 Setting Ventilator Tidal Volume 500 Setting Ventilator Respiratory Rate 10 Setting Ventilator Respiratory Rate 10 Setting Ventilator Respiratory Rate 10 Setting Ventilator Respiratory Rate 10 Setting Ventilator Respiratory Rate 10 Setting Ventilator Respiratory Rate 10 Setting Ventilator Respiratory Rate 10 Setting Ventilator Respiratory Rate 10 Setting Ventilator Respiratory Rate 10 Setting Ventilator Respiratory Rate 10 Setting Ventilator Respiratory Rate 10 Setting Actual Respiratory Rate 10 Actual Respiratory Rate 10 Actual Respiratory Rate 10 Actual Respiratory Rate 10 Actual Respiratory Rate 10 Actual Respiratory Rate 10 Actual Respiratory Rate 10 Actual Respiratory Rate 10 Actual Respiratory Rate 10 Actual Respiratory Rate 10 Positive End Expiratory 5 Pressure Positive End Expiratory 5 Pressure Positive End Expiratory 5 Pressure Positive End Expiratory 5 Pressure Positive End Expiratory 5 Pressure Positive End Expiratory 5 Pressure Positive End Expiratory 5 Pressure Positive End Expiratory 5 Pressure Positive End Expiratory 5 Pressure Positive End Expiratory 5 Pressure Positive End Expiratory 5 Pressure Peak Inspiratory Airway 55 Pressure Peak Inspiratory Airway 49 Pressure Peak Inspiratory Airway 51 Pressure Peak Inspiratory Airway 51 Pressure Peak Inspiratory Airway 57 Pressure Peak Inspiratory Airway 57 Pressure Peak Inspiratory Airway 53 Pressure Peak Inspiratory Airway 55 Pressure Peak Inspiratory Airway 53 Pressure Peak Inspiratory Airway 53 Pressure Results - Laboratory Findings CBC and BMP: 07/20/17 03:41 07/20/17 03:41 ABG ABG pH 7.40 pH Units (7.32-7.45) 07/20/17 05:01 ABG pCO2 52 mmHg (35-45) H 07/20/17 05:01 ABG pO2 87 mmHg (85-104) 07/20/17 05:01 ABG O2 Saturation 96 % (95-98) 07/20/17 05:01 PT/INR, D-dimer PT 11.9 Seconds (9.4-12.1) 07/17/17 03:46 D-Dimer 565 ng/mLFEU (0-500) H 07/17/17 03:46 Abnormal lab findings: Abnormal lab results RBC 3.45 M/mcL (3.82-4.97) L 07/20/17 03:41 Hgb 9.3 g/dL (11.5-15.4) L 07/20/17 03:41 Hct 31.1 % (35.3-44.9) L 07/20/17 03:41 MCH 27.0 pg (28.0-33.3) L 07/20/17 03:41 MCHC 29.9 g/dL (31.6-35.5) L 07/20/17 03:41 Plt Count 108 K/mcL (140-400) L 07/20/17 03:41 Lymphocytes # 0.3 K/mcL (0.6-4.6) L 07/18/17 04:00 Nucleated RBCs/100 WBC 0.3 /100 WBC (0) H 07/18/17 04:00 APTT 66.6 Seconds (26.0-36.0) H 07/20/17 03:41 D-Dimer 565 ng/mLFEU (0-500) H 07/17/17 03:46 Heparin Anti-Xa, Unfract 0.99 IU/mL (0.30-0.70) H 07/18/17 06:00 ABG pCO2 52 mmHg (35-45) H 07/20/17 05:01 ABG HCO3 32 mEq/L (21-27) H 07/20/17 05:01 ABG Total CO2 34 mEq/L (20-26) H 07/20/17 05:01 ABG Base Excess 6 mEq/L (-2 to 3) H 07/20/17 05:01 VBG pH 7.29 pH Units (7.32-7.42) L 07/18/17 06:29 VBG pCO2 54 mmHg (41-51) H 07/18/17 06:29 VBG pO2 164 mmHg (25-50) H 07/18/17 06:29 BUN 26 mg/dL (6-20) H 07/20/17 03:41 BUN/Creatinine Ratio 38 (6-26) H 07/20/17 03:41 Glucose 123 mg/dL (70-105) H 07/20/17 03:41 POC Glucose 107 (58-89) H 07/20/17 07:48 Venous Ioniz Calcium 1.14 mmol/L (1.15-1.35) L 07/19/17 12:01 Troponin I 0.69 ng/mL (< 0.04) H* 07/18/17 04:00 B-Natriuretic Peptide 207 pg/mL (Less than 100) H 07/17/17 15:27 Ur Specific [place] 1.029 (1.010-1.025) H 07/17/17 05:45 - Microbiology Findings Microbiology Findings: Microbiology, Last 48 Hours 07/17/17 15:27 Sputum Culture - Final Sputum 07/19/17 16:12 Sputum Culture - Preliminary Sputum - Clinical Findings Intake & Output: Intake & Output 07/19/17 07/20/17 07/20/17 23:59 07:59 15:59 Intake Total 253 / 253 292 / 292 Output Total 425 / 425 100 / 100 150 / 150 Balance -172 / -172 192 / 192 -150 / -150 Weight 49.5 kg Consult Discharge Plan - Plan Referrals: NONE,PCP [Primary Care Provider] - - Attending Attestation I examined this patient and my medical decision-making was reviewed with the Resident Physician. I agree with the documented findings, disposition and treatment plan as described except to the extent set forth below. Patient seen and examined. Labs, radiology, chart personally reviewed. Agree with resident's history and physical, assessment, plan with following comments: TEACHERS ASSISTANT: Patient does not follows commands, even though percent is not ideal for sedation in ICU, this one is working better for her. Pulmonary: Acceptable oxygenation and ventilation on the patient, unfortunately she is not tolerating spontaneous breathing trial and I have the feeling it will be difficult to get her off the vent and may need tracheostomy if she remained full code. Vent changes made mainly with lowering tidal volume based on her ABG result and also to keep her comfortable with the vent synchrony. There is some evidence of intrinsic PEEP, however it is not significant. Cardiovascular: stable and follow-up with cardiology regarding heparin drip GI: Nutrition per dietary and GI prophylaxis per routine Heme: DVT prophylaxis per routine ID: Continue antibiotics and plan to de-escalation Renal; urine out put and renal funtion reviewed Endorcine: blood glucose is monitored Lines: all lines checked and no evidence of infections Skin: skin care to prevent pressure ulcers per nursing routine care Overall prognosis is very poor I spent 32 min of Critical Care time with this patient. It involved decision making of high complexity to assess, manipulate, and support vital organ system failure and/or to prevent further life threatening deterioration of the patient' s condition. The time involved in the performance of separately reportable procedures was not counted toward critical care time. <Herlinda Yee - Last Filed: 07/20/17 14:58> Date of Encounter: 07/20/17 Time of Encounter: 08:50 Assessment and Plan (1) Acute respiratory failure with hypoxia Current Visit: No Status: Acute Patient began satting in the 80s while in SVT. Patient intubated on 07/17/17 and sedated. CXR negative. CTA negative for PE but did show bronchial wall thickening and mucous plugging with severe emphysematous changes. Troponin negative x1 then increased to a max of 1.06 but now trending down to 0.69. Patient extubated 07/18 and was on BIPAP FiO2 35%. Patient reintubated later that morning as patient went into SVT and worsening respiratory failure. See event note for details. Concern for her condition may not improve. She is still full code and may need tracheostomy. plan: - Solumedrol 40mg IV Q8hrs - Duonebs scheduled Q4hrs, prn Q2hrs - Symbicort - antibiotics: Levoquin (day 4) - sedation: Precedex, Fentanyl - BNP= 207 - BC prelim no growth - sputum culture 07/17 normal resp shefali. Sputum culture 07/19 few gram + cocci, + rods (2) Acute exacerbation of chronic obstructive airways disease Current Visit: No Status: Acute Hx of COPD with home meds of Incruse Ellipta, Symbicort, albuterol. Patient initially did have fever of 101.4F upon arrival but temp wnl since. See plan above. (3) Elevated troponin Current Visit: Yes Status: Acute Patient's initial troponin negative with an initial EKG showing ST depression in V3-V6. Patient went into SVT resolved with adenosine and lopressor. Patient' s repeat Troponin = 0.56. Repeat EKG showed inversion of T-waves in V2-V5. Cardiology was consulted, echo ordered, and low dose heparin drip started. Last nuclear stress test 2016, showed EF 70%, no ischemia. Echo 07/17/17: LVEF 60-65%, mild LV diastolic dysfunction, atypical septal motion consistent with post-op status. No valvular dysfunction. Plan: - Heparin drip stopped - cardiology consulted and believe due to demand ischemia no further cardiac work-up needed. signed off. (4) Hypotension Current Visit: Yes Status: Acute Pt has powerglider. Currently low range of normal BP. Will give fluid bolus if needed. Qualifiers: Hypotension type: unspecified hypotension type Qualified Code(s): I95.9 - Hypotension, unspecified (5) Diastolic heart failure Current Visit: No Status: Acute Hx of diastolic CHF. Nuclear stress 09/23/16 showed EF>70%, negative for ischemia. Echo is pending. BNP= 207. Patient is on Lasix at home but due to low normal BP and no rales will hold Lasix for now. Echo showed preserve EF mild LV diastolic dysfunction. Qualifiers: Heart failure chronicity: acute on chronic Qualified Code(s): I50.33 - Acute on chronic diastolic (congestive) heart failure Subjective Principal diagnosis: acute respiratory failure with hypoxia Interval history: Ms. Scott is a 57-year-old female past medical history of COPD on 2 L, CAD status post CABG, and diastolic congestive heart failure found have acute respiratory failure secondary to COPD. 07/18, patient was extubated and is on BiPAP FiO2 35% and satting in the 90s. After extubation, patient had moderate respiratory distress with tachycardia and tachypnea on BiPAP FiO2 35%. Patient proceeded to go into SVT and was given Cardizem 5 mg. Patient had short run of V. tach and was given another 5 mg of Cardizem IVP. Patient's heart rate began to respond but patient continued increase work of breathing and decision was made to reintubate. Patient's HR returned to normal range. Today, Patient has been tachycardic and failed trial CPAP satting in the 60s. Patient has been requiring increase levels of FiO2. Objective PUL Vital signs: Last Vital Signs Temp 99.5 F 07/20/17 04:00 Pulse 98 07/20/17 07:00 Resp 10 07/20/17 07:11 BP 118/83 07/20/17 07:11 Pulse Ox 97 07/20/17 07:11 Constitutional: intubated, resting with diffuse intermittent tremors Head: Normocephalic, atraumatic Heart: tachycardic regular rate, no murmurs Lungs: + wheezing on mech ventilator at 40%, Abdomen: Soft, mild distended, nontender, no guarding or rigidity. Extremities: No clubbing, cyanosis, or edema, radial pulse +2/4, capillary refill <2sec. Skin: Skin warm and dry, no lesions, no rashes, no jaundice Neurologic: Cranial nerves II through XII grossly intact, no focal deficits, strength 5/5 in all extremitites Psych: Cooperative with exam, answering questions appropriately line: powerglider Ventilator Settings Ventilator Settings: Ventilator Settings, Last 8 Hours Ventilator Mode VC+ Ventilator Mode VC+ Ventilator Mode VC+ Ventilator Mode VC+ Ventilator Mode VC+ Ventilator Mode VC+ Ventilator Mode VC+ Ventilator Mode VC+ Ventilator Mode VC+ Ventilator Mode VC+ Ventilator Mode VC+ Ventilator Mode VC+ Ventilator Tidal Volume 500 Setting Ventilator Tidal Volume 500 Setting Ventilator Tidal Volume 500 Setting Ventilator Tidal Volume 500 Setting Ventilator Tidal Volume 500 Setting Ventilator Tidal Volume 500 Setting Ventilator Tidal Volume 500 Setting Ventilator Tidal Volume 500 Setting Ventilator Tidal Volume 500 Setting Ventilator Tidal Volume 500 Setting Ventilator Tidal Volume 500 Setting Ventilator Tidal Volume 500 Setting Ventilator Respiratory Rate 10 Setting Ventilator Respiratory Rate 10 Setting Ventilator Respiratory Rate 10 Setting Ventilator Respiratory Rate 10 Setting Ventilator Respiratory Rate 10 Setting Ventilator Respiratory Rate 10 Setting Ventilator Respiratory Rate 10 Setting Ventilator Respiratory Rate 10 Setting Ventilator Respiratory Rate 10 Setting Ventilator Respiratory Rate 10 Setting Ventilator Respiratory Rate 10 Setting Ventilator Respiratory Rate 10 Setting Actual Respiratory Rate 10 Actual Respiratory Rate 10 Actual Respiratory Rate 10 Actual Respiratory Rate 10 Actual Respiratory Rate 10 Actual Respiratory Rate 10 Actual Respiratory Rate 10 Actual Respiratory Rate 10 Actual Respiratory Rate 10 Actual Respiratory Rate 10 Actual Respiratory Rate 10 Positive End Expiratory 5 Pressure Positive End Expiratory 5 Pressure Positive End Expiratory 5 Pressure Positive End Expiratory 5 Pressure Positive End Expiratory 5 Pressure Positive End Expiratory 5 Pressure Positive End Expiratory 5 Pressure Positive End Expiratory 5 Pressure Positive End Expiratory 5 Pressure Positive End Expiratory 5 Pressure Positive End Expiratory 5 Pressure Positive End Expiratory 5 Pressure Peak Inspiratory Airway 49 Pressure Peak Inspiratory Airway 51 Pressure Peak Inspiratory Airway 51 Pressure Peak Inspiratory Airway 57 Pressure Peak Inspiratory Airway 57 Pressure Peak Inspiratory Airway 53 Pressure Peak Inspiratory Airway 55 Pressure Peak Inspiratory Airway 53 Pressure Peak Inspiratory Airway 53 Pressure Peak Inspiratory Airway 52 Pressure Peak Inspiratory Airway 49 Pressure Results - Laboratory Findings CBC and BMP: 07/20/17 03:41 07/20/17 03:41 ABG ABG pH 7.40 pH Units (7.32-7.45) 07/20/17 05:01 ABG pCO2 52 mmHg (35-45) H 07/20/17 05:01 ABG pO2 87 mmHg (85-104) 07/20/17 05:01 ABG O2 Saturation 96 % (95-98) 07/20/17 05:01 PT/INR, D-dimer PT 11.9 Seconds (9.4-12.1) 07/17/17 03:46 D-Dimer 565 ng/mLFEU (0-500) H 07/17/17 03:46 Abnormal lab findings: Abnormal lab results RBC 3.45 M/mcL (3.82-4.97) L 07/20/17 03:41 Hgb 9.3 g/dL (11.5-15.4) L 07/20/17 03:41 Hct 31.1 % (35.3-44.9) L 07/20/17 03:41 MCH 27.0 pg (28.0-33.3) L 07/20/17 03:41 MCHC 29.9 g/dL (31.6-35.5) L 07/20/17 03:41 Plt Count 108 K/mcL (140-400) L 07/20/17 03:41 Lymphocytes # 0.3 K/mcL (0.6-4.6) L 07/18/17 04:00 Nucleated RBCs/100 WBC 0.3 /100 WBC (0) H 07/18/17 04:00 APTT 66.6 Seconds (26.0-36.0) H 07/20/17 03:41 D-Dimer 565 ng/mLFEU (0-500) H 07/17/17 03:46 Heparin Anti-Xa, Unfract 0.99 IU/mL (0.30-0.70) H 07/18/17 06:00 ABG pCO2 52 mmHg (35-45) H 07/20/17 05:01 ABG HCO3 32 mEq/L (21-27) H 07/20/17 05:01 ABG Total CO2 34 mEq/L (20-26) H 07/20/17 05:01 ABG Base Excess 6 mEq/L (-2 to 3) H 07/20/17 05:01 VBG pH 7.29 pH Units (7.32-7.42) L 07/18/17 06:29 VBG pCO2 54 mmHg (41-51) H 07/18/17 06:29 VBG pO2 164 mmHg (25-50) H 07/18/17 06:29 BUN 26 mg/dL (6-20) H 07/20/17 03:41 BUN/Creatinine Ratio 38 (6-26) H 07/20/17 03:41 Glucose 123 mg/dL (70-105) H 07/20/17 03:41 POC Glucose 107 (58-89) H 07/20/17 07:48 Venous Ioniz Calcium 1.14 mmol/L (1.15-1.35) L 07/19/17 12:01 Troponin I 0.69 ng/mL (< 0.04) H* 07/18/17 04:00 B-Natriuretic Peptide 207 pg/mL (Less than 100) H 07/17/17 15:27 Ur Specific [place] 1.029 (1.010-1.025) H 07/17/17 05:45 - Microbiology Findings Microbiology Findings: Microbiology, Last 48 Hours 07/17/17 15:27 Sputum Culture - Final Sputum 07/19/17 16:12 Sputum Culture - Preliminary Sputum - Clinical Findings Intake & Output: Intake & Output 07/19/17 07/20/17 07/20/17 23:59 07:59 15:59 Intake Total 253 / 253 292 / 292 Output Total 425 / 425 100 / 100 Balance -172 / -172 192 / 192 Weight 49.5 kg - VTE Documentation of Mechanical Device: Intermittent pneumatic compression device
[2017-07-20] MEDS: Levofloxacin 750 MG/150 ML 750 MG/150 ML BAG IVPB SCH (08:54)
[2017-07-20] MEDS: Pantoprazole 40 MG VIAL IVP SCH (08:54)
[2017-07-20] MEDS: Chlorhexidine Rinse 15 ML MOUTHWASH MM SCH ×2 (08:54→21:00)
[2017-07-20] MEDS ORDERED: 0.9 % Sodium Chloride 1,000 ML ONE (10:35)
[2017-07-20] MEDS ORDERED: 0.9 % Sodium Chloride 500 ML IVC ONE (14:09)
[2017-07-20] MEDS: *HR* Heparin 5,000 UNIT/ML VIAL SQ SCH (17:19)
[2017-07-20] MEDS ORDERED: Ringers Solution, Lactated 500 ML IVC ONE ×2 (17:33→18:00)
[2017-07-21] MEDS: Insulin LISPRO 300 UNITS/3 ML VIAL SQ SCH ×6 (01:11→20:23)
[2017-07-21] MEDS: Lacri-Lube 3.5 GM TUBE BOTH EYES SCH ×6 (01:11→20:24)
[2017-07-21] MEDS: MethylPREDNISolone 40 MG/ML VIAL IVP SCH ×3 (01:14→16:52)
[2017-07-21] MEDS: Ipratropium/Albuterol Neb 3 ML IH SCH ×6 (03:15→22:54)
[2017-07-21 03:58] LABS: Hematocrit 29.2 % (35.3-44.9); Hemoglobin 8.9 g/dL (11.5-15.4); Immature Platelets 15.4 % (1.1-6.1); Mean Corpuscular HGB Conc 30.5 g/dL (31.6-35.5); Mean Corpuscular Hemoglobin 27.6 pg (28.0-33.3); Mean Corpuscular Volume 90.7 fL (83.0-100.0); Mean Platelet Volume 12.5 fL (9.4-12.4); Red Blood Count 3.22 M/mcL (3.82-4.97); Red Cell Distribution Width 14.6 % (11.5-14.5)
[2017-07-21 04:06] LABS: VBG Ionized Calcium 1.09 mmol/L (1.15-1.35)
[2017-07-21 04:23] LABS: BUN/Creatinine Ratio 29 (6-26); Blood Urea Nitrogen 31 mg/dL (6-20); Calcium 8.9 mg/dL (8.6-10.3); Carbon Dioxide 27 mEq/L (23-29); Chloride 106 mEq/L (98-107); Glucose 116 mg/dL (70-105); Osmolality,Calculated 306 (280-300); Potassium 4.3 mEq/L (3.5-5.1); Sodium 144 mEq/L (136-145); eGFR For African Americans > 60 (> 60); eGFR For Non-African Americans 52 (> 60)
[2017-07-21 04:38] LABS: Magnesium 1.9 mg/dL (1.6-2.6); Phosphorous 3.6 mg/dL (2.7-4.5)
[2017-07-21 05:27] LABS: ABG Base Excess 3 mEq/L (-2 to 3); ABG HCO3 29 mEq/L (21-27); ABG Oxygen Saturation 98 % (95-98); ABG PCO2 51 mmHg (35-45); ABG PH 7.36 pH Units (7.32-7.45); ABG PO2 119 mmHg (85-104); ABG TCO2 30 mEq/L (20-26); Blood Gas Modality VC; Blood Gas PEEP 5 cm H2O; Blood Gas Respiration Rate 10; Blood Gas VT 450 cc
[2017-07-21] MEDS: *HR* Heparin 5,000 UNIT/ML VIAL SQ SCH ×2 (05:43→18:15)
[2017-07-21] MEDS: FentaNYL (PF) 1,000 MCG in 0.9 % Sodium Chloride 80 ML IVC SCH ×3 (05:43→19:20)
[2017-07-21] MEDS ORDERED: Aminoglycoside Consult 1 EACH MC ONE (07:30)
[2017-07-21] MEDS: Budesonide/Formoterol 160/4.5 MDI IH SCH ×2 (07:33→19:30)
[2017-07-21] MEDS: Chlorhexidine Rinse 15 ML MOUTHWASH MM SCH ×2 (08:26→20:24)
[2017-07-21] MEDS: Pantoprazole 40 MG VIAL IVP SCH (08:27)
[2017-07-21] MEDS ORDERED: Ringers Solution, Lactated 500 ML IVC ONE (08:57)
--- NOTE | 2017-07-21 09:26 | Pulmonology Progress Note ---
<EdilGolden W - Last Filed: 07/21/17 10:33> Date of Encounter: 07/21/17 Objective PUL Vital signs: Last Vital Signs Temp 98.0 F 07/21/17 08:00 Pulse 101 07/21/17 09:00 Resp 10 07/21/17 09:00 BP 100/65 07/21/17 09:00 Pulse Ox 98 07/21/17 09:00 Ventilator Settings Ventilator Settings: Ventilator Settings, Last 8 Hours Ventilator Mode VC+ Ventilator Mode VC+ Ventilator Mode VC+ Ventilator Mode VC+ Ventilator Mode VC+ Ventilator Mode VC+ Ventilator Mode VC+ Ventilator Mode VC+ Ventilator Mode VC+ Ventilator Mode VC+ Ventilator Mode VC+ Ventilator Mode VC+ Ventilator Tidal Volume 450 Setting Ventilator Tidal Volume 450 Setting Ventilator Tidal Volume 450 Setting Ventilator Tidal Volume 450 Setting Ventilator Tidal Volume 450 Setting Ventilator Tidal Volume 450 Setting Ventilator Tidal Volume 450 Setting Ventilator Tidal Volume 450 Setting Ventilator Tidal Volume 450 Setting Ventilator Tidal Volume 450 Setting Ventilator Tidal Volume 450 Setting Ventilator Tidal Volume 450 Setting Ventilator Respiratory Rate 10 Setting Ventilator Respiratory Rate 10 Setting Ventilator Respiratory Rate 10 Setting Ventilator Respiratory Rate 10 Setting Ventilator Respiratory Rate 10 Setting Ventilator Respiratory Rate 10 Setting Ventilator Respiratory Rate 10 Setting Ventilator Respiratory Rate 10 Setting Ventilator Respiratory Rate 10 Setting Ventilator Respiratory Rate 10 Setting Ventilator Respiratory Rate 10 Setting Ventilator Respiratory Rate 10 Setting Actual Respiratory Rate 10 Actual Respiratory Rate 10 Actual Respiratory Rate 10 Actual Respiratory Rate 10 Actual Respiratory Rate 10 Actual Respiratory Rate 10 Actual Respiratory Rate 10 Actual Respiratory Rate 10 Actual Respiratory Rate 10 Actual Respiratory Rate 10 Actual Respiratory Rate 10 Positive End Expiratory 5 Pressure Positive End Expiratory 5 Pressure Positive End Expiratory 5 Pressure Positive End Expiratory 5 Pressure Positive End Expiratory 5 Pressure Positive End Expiratory 5 Pressure Positive End Expiratory 5 Pressure Positive End Expiratory 5 Pressure Positive End Expiratory 5 Pressure Positive End Expiratory 5 Pressure Positive End Expiratory 5 Pressure Positive End Expiratory 5 Pressure Peak Inspiratory Airway 40 Pressure Peak Inspiratory Airway 42 Pressure Peak Inspiratory Airway 42 Pressure Peak Inspiratory Airway 42 Pressure Peak Inspiratory Airway 41 Pressure Peak Inspiratory Airway 42 Pressure Peak Inspiratory Airway 42 Pressure Peak Inspiratory Airway 42 Pressure Peak Inspiratory Airway 43 Pressure Peak Inspiratory Airway 40 Pressure Peak Inspiratory Airway 43 Pressure Results - Laboratory Findings CBC and BMP: 07/21/17 03:40 07/21/17 03:40 ABG ABG pH 7.36 pH Units (7.32-7.45) 07/21/17 05:23 ABG pCO2 51 mmHg (35-45) H 07/21/17 05:23 ABG pO2 119 mmHg (85-104) H 07/21/17 05:23 ABG O2 Saturation 98 % (95-98) 07/21/17 05:23 PT/INR, D-dimer PT 11.9 Seconds (9.4-12.1) 07/17/17 03:46 D-Dimer 565 ng/mLFEU (0-500) H 07/17/17 03:46 Abnormal lab findings: Abnormal lab results RBC 3.22 M/mcL (3.82-4.97) L 07/21/17 03:40 Hgb 8.9 g/dL (11.5-15.4) L 07/21/17 03:40 Hct 29.2 % (35.3-44.9) L 07/21/17 03:40 MCH 27.6 pg (28.0-33.3) L 07/21/17 03:40 MCHC 30.5 g/dL (31.6-35.5) L 07/21/17 03:40 RDW 14.6 % (11.5-14.5) H 07/21/17 03:40 Plt Count 104 K/mcL (140-400) L 07/21/17 03:40 MPV 12.5 fL (9.4-12.4) H 07/21/17 03:40 Lymphocytes # 0.3 K/mcL (0.6-4.6) L 07/18/17 04:00 Nucleated RBCs/100 WBC 0.3 /100 WBC (0) H 07/18/17 04:00 Immature Plt Fraction 15.4 % (1.1-6.1) H 07/21/17 03:40 APTT 66.6 Seconds (26.0-36.0) H 07/20/17 03:41 D-Dimer 565 ng/mLFEU (0-500) H 07/17/17 03:46 Heparin Anti-Xa, Unfract 0.99 IU/mL (0.30-0.70) H 07/18/17 06:00 ABG pCO2 51 mmHg (35-45) H 07/21/17 05:23 ABG pO2 119 mmHg (85-104) H 07/21/17 05:23 ABG HCO3 29 mEq/L (21-27) H 07/21/17 05:23 ABG Total CO2 30 mEq/L (20-26) H 07/21/17 05:23 VBG pH 7.29 pH Units (7.32-7.42) L 07/18/17 06:29 VBG pCO2 54 mmHg (41-51) H 07/18/17 06:29 VBG pO2 164 mmHg (25-50) H 07/18/17 06:29 BUN 31 mg/dL (6-20) H 07/21/17 03:40 Est GFR (Non-Af Amer) 52 (> 60) L 07/21/17 03:40 BUN/Creatinine Ratio 29 (6-26) H 07/21/17 03:40 Glucose 116 mg/dL (70-105) H 07/21/17 03:40 POC Glucose 107 (58-89) H 07/21/17 08:13 Calculated Osmolality 306 (280-300) H 07/21/17 03:40 Venous Ioniz Calcium 1.09 mmol/L (1.15-1.35) L 07/21/17 04:04 Troponin I 0.69 ng/mL (< 0.04) H* 07/18/17 04:00 B-Natriuretic Peptide 207 pg/mL (Less than 100) H 07/17/17 15:27 Ur Specific [place] 1.029 (1.010-1.025) H 07/17/17 05:45 - Microbiology Findings Microbiology Findings: Microbiology, Last 48 Hours 07/19/17 16:12 Sputum Culture - Preliminary Sputum Staphylococcus aureus 07/17/17 15:27 Sputum Culture - Final Sputum - Clinical Findings Intake & Output: Intake & Output 07/20/17 07/21/17 07/21/17 23:59 07:59 15:59 Intake Total 200 / 200 200 / 200 0 / 0 Output Total 50 / 50 300 / 300 25 / 25 Balance 150 / 150 -100 / -100 -25 / -25 Weight 52.2 kg Consult Discharge Plan - Plan Referrals: NONE,PCP [Primary Care Provider] - - Attending Attestation I examined this patient and my medical decision-making was reviewed with the Resident Physician. I agree with the documented findings, disposition and treatment plan as described except to the extent set forth below. We independently had [id number] contact with the patient Patient seen and examined at bedside Labs, radiology, chart personally reviewed. Management was reviewed during multidisciplinary critical care rounds. 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 Stable gas exchange on Vent.with satisfactory mechanics Cards:Tachy respnded to fluids cont to monitor FEN-GI:PPI prophylaxis given Renal: UOP monitored ID: MRSA PNA on ABx with plan to treat for 7-10 days based upon clinical course. Heme/Onc: DVT prophylaxis given Endo: Glucose Monitored Integ/MSK: Skin Care per routine ICU Nursing Protocol to prevent ulcers. Lines: All lines examined without evidence of infection : Dispo: Remain in ICU CODE: Full Code. Prognosis poor <Herlinda Yee - Last Filed: 07/21/17 13:40> Date of Encounter: 07/21/17 Time of Encounter: 08:30 Assessment and Plan (1) Acute respiratory failure with hypoxia Current Visit: No Status: Acute Patient began satting in the 80s while in SVT. Patient intubated on 07/17/17 and sedated. CXR negative. CTA negative for PE but did show bronchial wall thickening and mucous plugging with severe emphysematous changes. Troponin negative x1 then increased to a max of 1.06 but now trending down to 0.69. Patient extubated 07/18 and was on BIPAP FiO2 35%. Patient reintubated later that morning as patient went into SVT and worsening respiratory failure. See event note for details. Concern for her condition may not improve. She is still full code and may need tracheostomy. plan: - Solumedrol 40mg IV Q8hrs - Duonebs scheduled Q4hrs, prn Q2hrs - Symbicort - antibiotics: Added Vancomycin (day 1) Levoquin (day 5) - sedation: Precedex, Fentanyl - BNP= 207 - BC prelim no growth - sputum culture 07/19 growing MRSA<, / normal resp shefali. Sputum culture few gram + cocci, + rods - restarted tube feeds today (2) Acute exacerbation of chronic obstructive airways disease Current Visit: No Status: Acute Hx of COPD with home meds of Incruse Ellipta, Symbicort, albuterol. Patient initially did have fever of 101.4F upon arrival but temp wnl since. See plan above. (3) Elevated troponin Current Visit: Yes Status: Acute Patient's initial troponin negative with an initial EKG showing ST depression in V3-V6. Patient went into SVT resolved with adenosine and lopressor. Patient' s repeat Troponin = 0.56. Repeat EKG showed inversion of T-waves in V2-V5. Cardiology was consulted, echo ordered, and low dose heparin drip started. Last nuclear stress test 2016, showed EF 70%, no ischemia. Echo 07/17/17: LVEF 60-65%, mild LV diastolic dysfunction, atypical septal motion consistent with post-op status. No valvular dysfunction. Plan: - Heparin drip stopped - cardiology consulted and believe due to demand ischemia no further cardiac work-up needed. signed off. (4) Hypotension Current Visit: Yes Status: Acute Pt has powerglider. Currently low range of normal BP. Will give fluid bolus if needed as patient has been tachycardic also. Qualifiers: Hypotension type: unspecified hypotension type Qualified Code(s): I95.9 - Hypotension, unspecified (5) Diastolic heart failure Current Visit: No Status: Acute Hx of diastolic CHF. Nuclear stress 09/23/16 showed EF>70%, negative for ischemia. Echo is pending. BNP= 207. Patient is on Lasix at home but due to low normal BP and no rales will hold Lasix for now. Echo showed preserve EF mild LV diastolic dysfunction. Qualifiers: Heart failure chronicity: acute on chronic Qualified Code(s): I50.33 - Acute on chronic diastolic (congestive) heart failure Subjective Principal diagnosis: acute respiratory failure with hypoxia Interval history: Ms. Scott is a 57-year-old female past medical history of COPD on 2 L, CAD status post CABG, and diastolic congestive heart failure found have acute respiratory failure secondary to COPD. 07/18, patient was extubated and is on BiPAP FiO2 35% and satting in the 90s. After extubation, patient had moderate respiratory distress with tachycardia and tachypnea on BiPAP FiO2 35%. Patient proceeded to go into SVT and was given Cardizem 5 mg. Patient had short run of V. tach and was given another 5 mg of Cardizem IVP. Patient's heart rate began to respond but patient continued increase work of breathing and decision was made to reintubate. Patient's HR returned to normal range. No acute events overnight Today, Patient has been intermittently tachycardic but responding to fluid boluses. Patient currently responding only to pain stimuli with opening eyes. Patient currently sedated on fentanyl and Versed. Objective PUL Vital signs: Last Vital Signs Temp 98.0 F 07/21/17 08:00 Pulse 106 07/21/17 08:00 Resp 10 07/21/17 08:00 BP 103/78 07/21/17 08:00 Pulse Ox 97 07/21/17 08:00 Constitutional: intubated, resting Head: Normocephalic, atraumatic Heart: tachycardic regular rate, no murmurs Lungs: worsening wheezing compared to yesterday,[facility] ventilator at 40%, Abdomen: Soft, mild distended, nontender, no guarding or rigidity. Extremities: soft restraints present, no edema, No clubbing, no cyanosis radial pulse +2/4, capillary refill <2sec. Skin: Skin warm and dry, no lesions, no rashes, no jaundice Neurologic: patient opening eyes to painful stimuli line: [place] [address] Ventilator Settings Ventilator Settings: Ventilator Settings, Last 8 Hours Ventilator Mode VC+ Ventilator Mode VC+ Ventilator Mode VC+ Ventilator Mode VC+ Ventilator Mode VC+ Ventilator Mode VC+ Ventilator Mode VC+ Ventilator Mode VC+ Ventilator Mode VC+ Ventilator Mode VC+ Ventilator Mode VC+ Ventilator Tidal Volume 450 Setting Ventilator Tidal Volume 450 Setting Ventilator Tidal Volume 450 Setting Ventilator Tidal Volume 450 Setting Ventilator Tidal Volume 450 Setting Ventilator Tidal Volume 450 Setting Ventilator Tidal Volume 450 Setting Ventilator Tidal Volume 450 Setting Ventilator Tidal Volume 450 Setting Ventilator Tidal Volume 450 Setting Ventilator Tidal Volume 450 Setting Ventilator Respiratory Rate 10 Setting Ventilator Respiratory Rate 10 Setting Ventilator Respiratory Rate 10 Setting Ventilator Respiratory Rate 10 Setting Ventilator Respiratory Rate 10 Setting Ventilator Respiratory Rate 10 Setting Ventilator Respiratory Rate 10 Setting Ventilator Respiratory Rate 10 Setting Ventilator Respiratory Rate 10 Setting Ventilator Respiratory Rate 10 Setting Ventilator Respiratory Rate 10 Setting Actual Respiratory Rate 10 Actual Respiratory Rate 10 Actual Respiratory Rate 10 Actual Respiratory Rate 10 Actual Respiratory Rate 10 Actual Respiratory Rate 10 Actual Respiratory Rate 10 Actual Respiratory Rate 10 Actual Respiratory Rate 10 Actual Respiratory Rate 10 Positive End Expiratory 5 Pressure Positive End Expiratory 5 Pressure Positive End Expiratory 5 Pressure Positive End Expiratory 5 Pressure Positive End Expiratory 5 Pressure Positive End Expiratory 5 Pressure Positive End Expiratory 5 Pressure Positive End Expiratory 5 Pressure Positive End Expiratory 5 Pressure Positive End Expiratory 5 Pressure Positive End Expiratory 5 Pressure Peak Inspiratory Airway 42 Pressure Peak Inspiratory Airway 42 Pressure Peak Inspiratory Airway 42 Pressure Peak Inspiratory Airway 41 Pressure Peak Inspiratory Airway 42 Pressure Peak Inspiratory Airway 42 Pressure Peak Inspiratory Airway 42 Pressure Peak Inspiratory Airway 43 Pressure Peak Inspiratory Airway 40 Pressure Peak Inspiratory Airway 43 Pressure Results - Laboratory Findings CBC and BMP: 07/21/17 03:40 07/21/17 03:40 ABG ABG pH 7.36 pH Units (7.32-7.45) 07/21/17 05:23 ABG pCO2 51 mmHg (35-45) H 07/21/17 05:23 ABG pO2 119 mmHg (85-104) H 07/21/17 05:23 ABG O2 Saturation 98 % (95-98) 07/21/17 05:23 PT/INR, D-dimer PT 11.9 Seconds (9.4-12.1) 07/17/17 03:46 D-Dimer 565 ng/mLFEU (0-500) H 07/17/17 03:46 Abnormal lab findings: Abnormal lab results RBC 3.22 M/mcL (3.82-4.97) L 07/21/17 03:40 Hgb 8.9 g/dL (11.5-15.4) L 07/21/17 03:40 Hct 29.2 % (35.3-44.9) L 07/21/17 03:40 MCH 27.6 pg (28.0-33.3) L 07/21/17 03:40 MCHC 30.5 g/dL (31.6-35.5) L 07/21/17 03:40 RDW 14.6 % (11.5-14.5) H 07/21/17 03:40 Plt Count 104 K/mcL (140-400) L 07/21/17 03:40 MPV 12.5 fL (9.4-12.4) H 07/21/17 03:40 Lymphocytes # 0.3 K/mcL (0.6-4.6) L 07/18/17 04:00 Nucleated RBCs/100 WBC 0.3 /100 WBC (0) H 07/18/17 04:00 Immature Plt Fraction 15.4 % (1.1-6.1) H 07/21/17 03:40 APTT 66.6 Seconds (26.0-36.0) H 07/20/17 03:41 D-Dimer 565 ng/mLFEU (0-500) H 07/17/17 03:46 Heparin Anti-Xa, Unfract 0.99 IU/mL (0.30-0.70) H 07/18/17 06:00 ABG pCO2 51 mmHg (35-45) H 07/21/17 05:23 ABG pO2 119 mmHg (85-104) H 07/21/17 05:23 ABG HCO3 29 mEq/L (21-27) H 07/21/17 05:23 ABG Total CO2 30 mEq/L (20-26) H 07/21/17 05:23 VBG pH 7.29 pH Units (7.32-7.42) L 07/18/17 06:29 VBG pCO2 54 mmHg (41-51) H 07/18/17 06:29 VBG pO2 164 mmHg (25-50) H 07/18/17 06:29 BUN 31 mg/dL (6-20) H 07/21/17 03:40 Est GFR (Non-Af Amer) 52 (> 60) L 07/21/17 03:40 BUN/Creatinine Ratio 29 (6-26) H 07/21/17 03:40 Glucose 116 mg/dL (70-105) H 07/21/17 03:40 POC Glucose 107 (58-89) H 07/21/17 08:13 Calculated Osmolality 306 (280-300) H 07/21/17 03:40 Venous Ioniz Calcium 1.09 mmol/L (1.15-1.35) L 07/21/17 04:04 Troponin I 0.69 ng/mL (< 0.04) H* 07/18/17 04:00 B-Natriuretic Peptide 207 pg/mL (Less than 100) H 07/17/17 15:27 Ur Specific [place] 1.029 (1.010-1.025) H 07/17/17 05:45 - Microbiology Findings Microbiology Findings: Microbiology, Last 48 Hours 07/19/17 16:12 Sputum Culture - Preliminary Sputum Staphylococcus aureus 07/17/17 15:27 Sputum Culture - Final Sputum - Clinical Findings Intake & Output: Intake & Output 07/20/17 07/21/17 07/21/17 23:59 07:59 15:59 Intake Total 200 / 200 200 / 200 0 / 0 Output Total 50 / 50 300 / 300 25 / 25 Balance 150 / 150 -100 / -100 -25 / -25 Weight 52.2 kg - VTE Documentation of Mechanical Device: Intermittent pneumatic compression device
[2017-07-21] MEDS ORDERED: Ringers Solution, Lactated 1,000 ML IV SCH (09:45)
--- NOTE | 2017-07-21 11:27 | Event Note ---
Date of Encounter: 07/21/17 Time of Encounter: 11:20 Patient remains on ventilator, quite sedated this am. Has not tolerated CPAP trials. I did touch base with son Kiet and ensured he knew she was here and updated on clinical status. I have had several discussion with Kiet over the past few years. He will be visiting later this am. Discussed briefly that if she is ultimately unable to wean from vent, we may need decision regarding tracheostomy. He believes she would not want that, and states that he thinks that in time, she will improve and be able to be extubated. Will continue to follow clinical course at a distance and assist as needed.
[2017-07-21] MEDS: Nicotine 14 MG PATCH.TD24 TD SCH (12:38)
[2017-07-21] MEDS: Dexmedetomidine HCl 400 MCG/100 ML MLS IVC SCH (12:38)
[2017-07-21] MEDS: Bisacodyl 10 MG RECTAL SUPPOSITORY RC SCH (18:15)
[2017-07-22] MEDS: MethylPREDNISolone 40 MG/ML VIAL IVP SCH ×4 (00:27→23:53)
[2017-07-22] MEDS: Insulin LISPRO 300 UNITS/3 ML VIAL SQ SCH ×7 (00:27→23:53)
[2017-07-22] MEDS: Lacri-Lube 3.5 GM TUBE BOTH EYES SCH ×7 (00:27→23:53)
[2017-07-22] MEDS: Dexmedetomidine HCl 400 MCG/100 ML MLS IVC SCH ×2 (01:32→16:19)
[2017-07-22] MEDS: Ipratropium/Albuterol Neb 3 ML IH SCH ×6 (03:54→23:37)
[2017-07-22 04:21] LABS: ABG Base Excess 1 mEq/L (-2 to 3); ABG HCO3 29 mEq/L (21-27); ABG Oxygen Saturation 81 % (95-98); ABG PCO2 65 mmHg (35-45); ABG PH 7.26 pH Units (7.32-7.45); ABG PO2 53 mmHg (85-104); ABG TCO2 31 mEq/L (20-26); Blood Gas Modality VC; Blood Gas PEEP 5 cm H2O; Blood Gas Respiration Rate 10; Blood Gas VT 450 cc
[2017-07-22 04:56] LABS: Hemoglobin 9.3 g/dL (11.5-15.4); Mean Corpuscular Hemoglobin 27.3 pg (28.0-33.3); Mean Corpuscular Volume 90.9 fL (83.0-100.0); Mean Platelet Volume 13.3 fL (9.4-12.4); Platelet Count 127 K/mcL (140-400); Red Blood Count 3.41 M/mcL (3.82-4.97); Red Cell Distribution Width 14.7 % (11.5-14.5)
[2017-07-22 05:17] LABS: BUN/Creatinine Ratio 38 (6-26); Blood Urea Nitrogen 35 mg/dL (6-20); Calcium 9.1 mg/dL (8.6-10.3); Carbon Dioxide 28 mEq/L (23-29); Chloride 108 mEq/L (98-107); Glucose 183 mg/dL (70-105); Osmolality,Calculated 309 (280-300); Potassium 4.7 mEq/L (3.5-5.1); Sodium 143 mEq/L (136-145); eGFR For African Americans > 60 (> 60); eGFR For Non-African Americans > 60 (> 60)
[2017-07-22 05:49] LABS: Magnesium 2.4 mg/dL (1.6-2.6); Phosphorous 3.2 mg/dL (2.7-4.5)
[2017-07-22] MEDS: *HR* Heparin 5,000 UNIT/ML VIAL SQ SCH ×2 (06:29→17:27)
[2017-07-22] MEDS: FentaNYL (PF) 1,000 MCG in 0.9 % Sodium Chloride 80 ML IVC SCH ×3 (06:32→21:12)
[2017-07-22] MEDS ORDERED: Ringers Solution, Lactated 500 ML IVC ONE (06:36)
--- NOTE | 2017-07-22 07:10 | Pulmonology Progress Note ---
<Herlinda Yee - Last Filed: 07/22/17 11:04> Date of Encounter: 07/22/17 Time of Encounter: 09:00 Assessment and Plan (1) Acute respiratory failure with hypoxia Current Visit: No Status: Acute Patient began satting in the 80s while in SVT. Patient intubated on 07/17/17 and sedated. CXR negative. CTA negative for PE but did show bronchial wall thickening and mucous plugging with severe emphysematous changes. Troponin negative x1 then increased to a max of 1.06 but now trending down to 0.69. Patient extubated 07/18 and was on BIPAP FiO2 35%. Patient reintubated later that morning as patient went into SVT and worsening respiratory failure. See event note for details. This morning patient was having hypotension and with less sedation had decreased responsiveness. Chest x-ray, head CT, lactic acid and blood cultures ordered. Started Levophed. Began Vecuronium for lung rest. Concern for her condition may not improve. She is still full code and may need tracheostomy. plan: -Head CT without contrast - Chest x-ray - Lactic acid - central line placed - Solumedrol 40mg IV Q8hrs - Albuterol alternating with DuoNeb's for the next 8 hours then Duonebs scheduled Q4hrs, prn Q2hrs - Symbicort - antibiotics: initate Zyvox ( day 1), adding Zosyn (day 1). s/p Levoquin (5 days), Vanco (2 days) - sedation: Precedex, Fentanyl - BNP= 207 - repeat BC drawn 07/22/17, BC 07/17/17 prelim no growth - sputum culture 07/19 growing MRSA, 07/17 normal resp shefali. Sputum culture 07/19 few gram + cocci, + rods - restarted tube feeds today (2) Acute exacerbation of chronic obstructive airways disease Current Visit: No Status: Acute Hx of COPD with home meds of Incruse Ellipta, Symbicort, albuterol. Patient initially did have fever of 101.4F upon arrival but temp wnl since. See plan above. Albuterol alternating with DuoNeb nebs every 2 hours for the next 8 hours. (3) Elevated troponin Current Visit: Yes Status: Acute Patient's initial troponin negative with an initial EKG showing ST depression in V3-V6. Patient went into SVT resolved with adenosine and lopressor. Patient' s repeat Troponin = 0.56. Repeat EKG showed inversion of T-waves in V2-V5. Cardiology was consulted, echo ordered, and low dose heparin drip started. Last nuclear stress test 2016, showed EF 70%, no ischemia. Echo 07/17/17: LVEF 60-65%, mild LV diastolic dysfunction, atypical septal motion consistent with post-op status. No valvular dysfunction. Plan: - Heparin drip stopped - cardiology consulted and believe due to demand ischemia no further cardiac work-up needed. signed off. (4) Hypotension Current Visit: Yes Status: Acute Pt has powerglider and femoral central line. Will begin Levophed. (5) Diastolic heart failure Current Visit: No Status: Acute Hx of diastolic CHF. Nuclear stress 09/23/16 showed EF>70%, negative for ischemia. Echo is pending. BNP= 207. Patient is on Lasix at home but due to low normal BP and no rales will hold Lasix for now. Echo showed preserve EF mild LV diastolic dysfunction. Subjective Principal diagnosis: acute respiratory failure with hypoxia Interval history: Ms. Scott is a 57-year-old female past medical history of COPD on 2 L, CAD status post CABG, and diastolic congestive heart failure found have acute respiratory failure secondary to COPD. 07/18, patient was extubated and is on BiPAP FiO2 35% and satting in the 90s. After extubation, patient had moderate respiratory distress with tachycardia and tachypnea on BiPAP FiO2 35%. Patient proceeded to go into SVT and was given Cardizem 5 mg. Patient had short run of V. tach and was given another 5 mg of Cardizem IVP. Patient's heart rate began to respond but patient continued increase work of breathing and decision was made to reintubate. Patient's HR returned to normal range. No acute events overnight. Today, Patient has been hypotensive and less responsive even on decrease sedation. Patient currently responding only to pain stimuli with opening eyes. Patient currently sedated on fentanyl and precedex. Planning to initiate Levophed. Central line was placed. Plan to start Vecoronium. Objective PUL Vital signs: Last Vital Signs Temp 99.3 F 07/22/17 04:00 Pulse 89 07/22/17 06:00 Resp 12 07/22/17 06:00 BP 87/74 03/20/18 06:00 Pulse Ox 98 07/22/17 06:00 Constitutional: intubated, resting Head: Normocephalic, atraumatic Heart: tachycardic regular rate, no murmurs Lungs: worsening wheezing compared to yesterday, [facility]%, Abdomen: Soft, mild distended, nontender, no guarding or rigidity. Extremities: soft restraints present, no edema, No clubbing, no cyanosis radial pulse +2/4, capillary refill <2sec. Skin: Skin warm and dry, no lesions, no rashes, no jaundice Neurologic: patient opening eyes to painful stimuli line: powerglider, central femoral line Ventilator Settings Ventilator Settings: Ventilator Settings, Last 8 Hours Ventilator Mode VC+ Ventilator Mode VC+ Ventilator Mode VC+ Ventilator Mode VC+ Ventilator Mode VC+ Ventilator Mode VC+ Ventilator Mode VC+ Ventilator Mode VC+ Ventilator Mode VC+ Ventilator Mode VC+ Ventilator Tidal Volume 450 Setting Ventilator Tidal Volume 450 Setting Ventilator Tidal Volume 450 Setting Ventilator Tidal Volume 450 Setting Ventilator Tidal Volume 450 Setting Ventilator Tidal Volume 450 Setting Ventilator Tidal Volume 450 Setting Ventilator Tidal Volume 450 Setting Ventilator Tidal Volume 450 Setting Ventilator Tidal Volume 450 Setting Ventilator Respiratory Rate 12 Setting Ventilator Respiratory Rate 12 Setting Ventilator Respiratory Rate 12 Setting Ventilator Respiratory Rate 10 Setting Ventilator Respiratory Rate 10 Setting Ventilator Respiratory Rate 10 Setting Ventilator Respiratory Rate 10 Setting Ventilator Respiratory Rate 10 Setting Ventilator Respiratory Rate 10 Setting Ventilator Respiratory Rate 10 Setting Actual Respiratory Rate 12 Actual Respiratory Rate 12 Actual Respiratory Rate 12 Actual Respiratory Rate 10 Actual Respiratory Rate 10 Actual Respiratory Rate 10 Actual Respiratory Rate 10 Actual Respiratory Rate 10 Actual Respiratory Rate 10 Positive End Expiratory 5 Pressure Positive End Expiratory 5 Pressure Positive End Expiratory 5 Pressure Positive End Expiratory 5 Pressure Positive End Expiratory 5 Pressure Positive End Expiratory 5 Pressure Positive End Expiratory 5 Pressure Positive End Expiratory 5 Pressure Positive End Expiratory 5 Pressure Positive End Expiratory 5 Pressure Peak Inspiratory Airway 51 Pressure Peak Inspiratory Airway 45 Pressure Peak Inspiratory Airway 49 Pressure Peak Inspiratory Airway 47 Pressure Peak Inspiratory Airway 53 Pressure Results - Laboratory Findings CBC and BMP: 07/22/17 04:00 07/22/17 04:00 ABG ABG pH 7.26 pH Units (7.32-7.45) L 07/22/17 04:16 ABG pCO2 65 mmHg (35-45) H 07/22/17 04:16 ABG pO2 53 mmHg (85-104) L 07/22/17 04:16 ABG O2 Saturation 81 % (95-98) L 07/22/17 04:16 PT/INR, D-dimer PT 11.9 Seconds (9.4-12.1) 07/17/17 03:46 D-Dimer 565 ng/mLFEU (0-500) H 07/17/17 03:46 Abnormal lab findings: Abnormal lab results RBC 3.41 M/mcL (3.82-4.97) L 07/22/17 04:00 Hgb 9.3 g/dL (11.5-15.4) L 07/22/17 04:00 Hct 31.0 % (35.3-44.9) L 07/22/17 04:00 MCH 27.3 pg (28.0-33.3) L 07/22/17 04:00 MCHC 30.0 g/dL (31.6-35.5) L 07/22/17 04:00 RDW 14.7 % (11.5-14.5) H 07/22/17 04:00 Plt Count 127 K/mcL (140-400) L 07/22/17 04:00 MPV 13.3 fL (9.4-12.4) H 07/22/17 04:00 Lymphocytes # 0.3 K/mcL (0.6-4.6) L 07/18/17 04:00 Nucleated RBCs/100 WBC 0.3 /100 WBC (0) H 07/18/17 04:00 Immature Plt Fraction 15.4 % (1.1-6.1) H 07/21/17 03:40 APTT 66.6 Seconds (26.0-36.0) H 07/20/17 03:41 D-Dimer 565 ng/mLFEU (0-500) H 07/17/17 03:46 Heparin Anti-Xa, Unfract 0.99 IU/mL (0.30-0.70) H 07/18/17 06:00 ABG pH 7.26 pH Units (7.32-7.45) L 07/22/17 04:16 ABG pCO2 65 mmHg (35-45) H 07/22/17 04:16 ABG pO2 53 mmHg (85-104) L 07/22/17 04:16 ABG HCO3 29 mEq/L (21-27) H 07/22/17 04:16 ABG Total CO2 31 mEq/L (20-26) H 07/22/17 04:16 ABG O2 Saturation 81 % (95-98) L 07/22/17 04:16 VBG pH 7.29 pH Units (7.32-7.42) L 07/18/17 06:29 VBG pCO2 54 mmHg (41-51) H 07/18/17 06:29 VBG pO2 164 mmHg (25-50) H 07/18/17 06:29 Chloride 108 mEq/L (98-107) H 07/22/17 04:00 BUN 35 mg/dL (6-20) H 07/22/17 04:00 BUN/Creatinine Ratio 38 (6-26) H 07/22/17 04:00 Glucose 183 mg/dL (70-105) H 07/22/17 04:00 POC Glucose 180 (58-89) H 07/22/17 04:23 Calculated Osmolality 309 (280-300) H 07/22/17 04:00 Venous Ioniz Calcium 1.09 mmol/L (1.15-1.35) L 07/21/17 04:04 Troponin I 0.69 ng/mL (< 0.04) H* 07/18/17 04:00 B-Natriuretic Peptide 207 pg/mL (Less than 100) H 07/17/17 15:27 Ur Specific [place] 1.029 (1.010-1.025) H 07/17/17 05:45 - Microbiology Findings Microbiology Findings: Microbiology, Last 48 Hours 07/19/17 16:12 Sputum Culture - Final Sputum Methicillin Resistant S.aureus 07/17/17 15:27 Sputum Culture - Final Sputum - Clinical Findings Intake & Output: Intake & Output 07/21/17 07/21/17 07/22/17 15:59 23:59 07:59 Intake Total 932 / 932 513 / 513 724 / 724 Output Total 175 / 175 225 / 225 225 / 225 Balance 757 / 757 288 / 288 499 / 499 - VTE Documentation of Mechanical Device: Intermittent pneumatic compression device Consult Discharge Plan - Plan Referrals: NONE,PCP [Primary Care Provider] - <Golden Solo W - Last Filed: 07/22/17 12:31> Date of Encounter: 07/22/17 Objective PUL Vital signs: Last Vital Signs Temp 97.8 F 07/22/17 08:00 Pulse 92 07/22/17 08:00 Resp 12 07/22/17 08:00 BP 97/77 07/22/17 08:00 Pulse Ox 98 07/22/17 08:00 Ventilator Settings Ventilator Settings: Ventilator Settings, Last 8 Hours Ventilator Mode VC+ Ventilator Mode VC+ Ventilator Mode VC+ Ventilator Mode VC+ Ventilator Mode VC+ Ventilator Mode VC+ Ventilator Mode VC+ Ventilator Mode VC+ Ventilator Mode VC+ Ventilator Mode VC+ Ventilator Tidal Volume 450 Setting Ventilator Tidal Volume 450 Setting Ventilator Tidal Volume 450 Setting Ventilator Tidal Volume 450 Setting Ventilator Tidal Volume 450 Setting Ventilator Tidal Volume 450 Setting Ventilator Tidal Volume 450 Setting Ventilator Tidal Volume 450 Setting Ventilator Tidal Volume 450 Setting Ventilator Tidal Volume 450 Setting Ventilator Respiratory Rate 12 Setting Ventilator Respiratory Rate 12 Setting Ventilator Respiratory Rate 12 Setting Ventilator Respiratory Rate 12 Setting Ventilator Respiratory Rate 12 Setting Ventilator Respiratory Rate 10 Setting Ventilator Respiratory Rate 10 Setting Ventilator Respiratory Rate 10 Setting Ventilator Respiratory Rate 10 Setting Ventilator Respiratory Rate 10 Setting Actual Respiratory Rate 12 Actual Respiratory Rate 12 Actual Respiratory Rate 12 Actual Respiratory Rate 12 Actual Respiratory Rate 12 Actual Respiratory Rate 10 Actual Respiratory Rate 10 Actual Respiratory Rate 10 Actual Respiratory Rate 10 Positive End Expiratory 5 Pressure Positive End Expiratory 5 Pressure Positive End Expiratory 5 Pressure Positive End Expiratory 5 Pressure Positive End Expiratory 5 Pressure Positive End Expiratory 5 Pressure Positive End Expiratory 5 Pressure Positive End Expiratory 5 Pressure Positive End Expiratory 5 Pressure Positive End Expiratory 5 Pressure Peak Inspiratory Airway 55 Pressure Peak Inspiratory Airway 48 Pressure Peak Inspiratory Airway 51 Pressure Peak Inspiratory Airway 45 Pressure Peak Inspiratory Airway 49 Pressure Peak Inspiratory Airway 47 Pressure Peak Inspiratory Airway 53 Pressure Results - Laboratory Findings CBC and BMP: 07/22/17 04:00 07/22/17 04:00 ABG ABG pH 7.26 pH Units (7.32-7.45) L 07/22/17 04:16 ABG pCO2 65 mmHg (35-45) H 07/22/17 04:16 ABG pO2 53 mmHg (85-104) L 07/22/17 04:16 ABG O2 Saturation 81 % (95-98) L 07/22/17 04:16 PT/INR, D-dimer PT 11.9 Seconds (9.4-12.1) 07/17/17 03:46 D-Dimer 565 ng/mLFEU (0-500) H 07/17/17 03:46 Abnormal lab findings: Abnormal lab results RBC 3.41 M/mcL (3.82-4.97) L 07/22/17 04:00 Hgb 9.3 g/dL (11.5-15.4) L 07/22/17 04:00 Hct 31.0 % (35.3-44.9) L 07/22/17 04:00 MCH 27.3 pg (28.0-33.3) L 07/22/17 04:00 MCHC 30.0 g/dL (31.6-35.5) L 07/22/17 04:00 RDW 14.7 % (11.5-14.5) H 07/22/17 04:00 Plt Count 127 K/mcL (140-400) L 07/22/17 04:00 MPV 13.3 fL (9.4-12.4) H 07/22/17 04:00 Lymphocytes # 0.3 K/mcL (0.6-4.6) L 07/18/17 04:00 Nucleated RBCs/100 WBC 0.3 /100 WBC (0) H 07/18/17 04:00 Immature Plt Fraction 15.4 % (1.1-6.1) H 07/21/17 03:40 APTT 66.6 Seconds (26.0-36.0) H 07/20/17 03:41 D-Dimer 565 ng/mLFEU (0-500) H 07/17/17 03:46 Heparin Anti-Xa, Unfract 0.99 IU/mL (0.30-0.70) H 07/18/17 06:00 ABG pH 7.26 pH Units (7.32-7.45) L 07/22/17 04:16 ABG pCO2 65 mmHg (35-45) H 07/22/17 04:16 ABG pO2 53 mmHg (85-104) L 07/22/17 04:16 ABG HCO3 29 mEq/L (21-27) H 07/22/17 04:16 ABG Total CO2 31 mEq/L (20-26) H 07/22/17 04:16 ABG O2 Saturation 81 % (95-98) L 07/22/17 04:16 VBG pH 7.29 pH Units (7.32-7.42) L 07/18/17 06:29 VBG pCO2 54 mmHg (41-51) H 07/18/17 06:29 VBG pO2 164 mmHg (25-50) H 07/18/17 06:29 Chloride 108 mEq/L (98-107) H 07/22/17 04:00 BUN 35 mg/dL (6-20) H 07/22/17 04:00 BUN/Creatinine Ratio 38 (6-26) H 07/22/17 04:00 Glucose 183 mg/dL (70-105) H 07/22/17 04:00 POC Glucose 152 (58-89) H 07/22/17 07:28 Calculated Osmolality 309 (280-300) H 07/22/17 04:00 Venous Ioniz Calcium 1.09 mmol/L (1.15-1.35) L 07/21/17 04:04 Troponin I 0.69 ng/mL (< 0.04) H* 07/18/17 04:00 B-Natriuretic Peptide 207 pg/mL (Less than 100) H 07/17/17 15:27 Ur Specific [place] 1.029 (1.010-1.025) H 07/17/17 05:45 - Microbiology Findings Microbiology Findings: Microbiology, Last 48 Hours 07/19/17 16:12 Sputum Culture - Final Sputum Methicillin Resistant S.aureus - Clinical Findings Intake & Output: Intake & Output 07/21/17 07/22/17 07/22/17 23:59 07:59 15:59 Intake Total 513 / 513 874 / 874 Output Total 225 / 225 225 / 225 75 / 75 Balance 288 / 288 649 / 649 -75 / -75 - Attending Attestation I examined this patient and my medical decision-making was reviewed with the Resident Physician. I agree with the documented findings, disposition and treatment plan as described except to the extent set forth below. We independently had [id number] contact with the patient I spent 35min of Critical Care time with this patient. It involved decision making of high complexity to assess, manipulate, and support vital organ system failure and/or to prevent further life threatening deterioration of the patient' s condition. The time involved in the performance of separately reportable procedures was not counted toward critical care time. Patient seen and examined at bedside Labs, radiology, chart personally reviewed. Management was reviewed during multidisciplinary critical care rounds. DERRICK ENGINEER: Much more encephalopathic today and was not responsive even off sedation head CT ordered to evaluate for acute stroke. Pulm: Worsening hypoxic hypercarbic respiratory failure complicated by end- stage emphysema patient remains with elevated peak pressures related to her airways disease requiring deep sedation and paralysis. This is allowed increase in respiratory rate while avoiding breath stacking and auto PEEP. Repeat ABG after these changes reassuring. We have also increase her frequency of her bronchodilator therapies and will continue steroids for COPD exacerbation. She has evidence of worsening pneumonia though that is secondary to MRSA infection Cards: Hypotensive today which is likely a manifestation of sepsis and vasodilatory shock. She has had volume resuscitation but requires vasopressor support lactate within normal limits. A central venous catheter was inserted on an emergent basis FEN-GI: Enteral nutrition. Dietary services recommendations which we appreciate. GI prophylaxis given Renal: No evidence of a cat continue to monitor urine output ID: MRSA pneumonia with worsening sepsis switching from vancomycin to linezolid we will also add Zosyn for broad-spectrum coverage with planned to de-escalate next 48 hours/stop if repeat cultures negative. She will need at least 7 days coverage for MRSA pneumonia Heme/Onc: DVT prophylaxis given Endo: Glucose Monitored Integ/MSK: Skin Care per routine ICU Nursing Protocol to prevent ulcers. Lines: All lines examined without evidence of infection : Dispo: Remain in ICU CODE: Full code overall prognosis extremely poor palliative care following
[2017-07-22] MEDS: Budesonide/Formoterol 160/4.5 MDI IH SCH ×2 (07:34→19:22)
[2017-07-22] MEDS: Bisacodyl 10 MG RECTAL SUPPOSITORY RC SCH (08:31)
[2017-07-22] MEDS: Pantoprazole 40 MG VIAL IVP SCH (08:31)
[2017-07-22] MEDS: Nicotine 14 MG PATCH.TD24 TD SCH (08:31)
[2017-07-22] MEDS: Chlorhexidine Rinse 15 ML MOUTHWASH MM SCH ×2 (08:31→20:17)
--- NOTE | 2017-07-22 08:36 | Electrocardiograph Report ---
[place] [address] Test Date: 2017-07-17 Pat Name: Amy Vaughn Department: 103 Room: 11 Gender: F Cardiopulmonary Supervisor: : 1960 Requested By: Flo Segura Order Number: [id number] Reading MD: Dunia Gomez Measurements Intervals [place] Rate: 122 P: 87 CA: 133 QRS: 64 QRSD: 98 T: 95 QT: 338 QTc: 410 Interpretive Statements SINUS TACHYCARDIA WITH OCCASIONAL VENTRICULAR PREMATURE COMPLEXES NONSPECIFIC ST & T-WAVE ABNORMALITY ABNORMAL RHYTHM ECG ARTIFACT Electronically Signed On 07-22-2017 8:34:20 EDT by Dunia Gomez
[2017-07-22] MEDS ORDERED: Ringers Solution, Lactated 1,000 ML IVC ONE (08:42)
--- NOTE | 2017-07-22 08:58 | Electrocardiograph Report ---
[address] [place], [place] [address] Test Date: 2017-07-17 Pat Name: Amy Vaughn Department: 103 Room: 11 Gender: F Visitor Services Assistant: ALEXANDRA : 1960 Requested By: Pasquale Garcia Order Number: [id number] Reading MD: Dunia Gomez Measurements Intervals [place] Rate: 157 P: NV: 0 QRS: 75 QRSD: 91 T: 75 QT: 246 QTc: 334 Interpretive Statements ATRIAL FLUTTER/TACHYCARDIA WITH RAPID VENTRICULAR RESPONSE NONSPECIFIC ST & T-WAVE ABNORMALITY ABNORMAL RHYTHM ECG Electronically Signed On 07-22-2017 8:51:30 EDT by Dunia Gomez
--- NOTE | 2017-07-22 08:59 | Electrocardiograph Report ---
[address] [address] Test Date: 2017-07-17 Pat Name: Amy Vaughn Department: 103 Room: 11 Gender: F [place] Redevelopment Specialist: : 1960 Requested By: Pasquale Garcia Order Number: [id number] Reading MD: Dunia Gomez Measurements Intervals [place] Rate: 111 P: 86 MI: 130 QRS: 69 QRSD: 93 T: 91 QT: 361 QTc: 427 Interpretive Statements SINUS TACHYCARDIA POSSIBLE LEFT ATRIAL ENLARGEMENT [-0.1mV P WAVE IN V1/V2] NONSPECIFIC ST-T ABNORMALITIES ABNORMAL RHYTHM ECG Electronically Signed On 07-22-2017 8:52:44 EDT by Dunia Gomez
[2017-07-22] MEDS ORDERED: Levofloxacin 750 MG/150 ML 750 MG/150 ML BAG IVPB SCH (09:00)
[2017-07-22] MEDS ORDERED: *HR* Vecuronium 10 MG VIAL ONE (09:14)
[2017-07-22] MEDS ORDERED: *HR* Vecuronium 10 MG VIAL IVP ONE (09:15)
[2017-07-22] MEDS ORDERED: Albuterol 2.5 MG/3 ML NEBULIZER ONE (09:16)
--- NOTE | 2017-07-22 09:29 | Procedure Note ---
Date of procedure: 07/22/17 Pre-op diagnosis: hypotension Post-op diagnosis: same Procedure: CVC placement under U/S guidance Surgeon: Golden Solo Was there an graduate research assistant present: No Estimated blood loss (cc): 1 Specimen: none Pathology: none sent Condition: critical Disposition: no change Procedures: Internal Med - Central Line Placement Right Femoral Consent Obtained: consent not possible/implied Time out performed: No (emergent) Patient placed on monitor/pulse ox: Yes MD prep: mask, gown, gloves, other Central line prep: Chlorhexidine scrub Ultrasound used for placement: Yes Central line lumen inserted: triple Post Procedure: sutured in place, good blood return, all ports aspirated, flushed, capped, sterile dressing applied, dark venous blood, biodisk applied Patient tolerated procedure: well Complications: none
[2017-07-22] MEDS: Vecuronium 50 MG in 0.9 % Sodium Chloride 150 ML IVC SCH (09:57)
[2017-07-22] MEDS: Norepinephrine 4 MG in D5% in Water 250 ML IVC SCH (09:58)
--- NOTE | 2017-07-22 11:06 | Palliative Progress Note ---
Date of Encounter: 07/22/17 Time of Encounter: 11:00 - Assessment and plan (1) Generalized pain Current Visit: Yes Status: Acute (2) Anxiety Current Visit: No Status: Chronic Assessment and plan: Paralytic started this am. (3) Goals of care, counseling/discussion Current Visit: Yes Status: Acute Assessment and plan: D/W titi Santa via telephone. Son Catarino is in [facility]. Updated Kiet on deterioration in clinical condition. He did state he would be off the next couple of days, and for staff to call him with any changes. States "I'm glad they paralyzed her, she needs to rest and let the medications work to get her better". Again reiterated that she is critically ill. Son expressed appreciation of information. (4) Acute exacerbation of chronic obstructive airways disease Current Visit: No Status: Acute (5) Acute and chronic respiratory failure with hypercapnia Current Visit: No Status: Resolved - Time Spent With Patient Total time spent is greater than 50% in coordination of care (as documented) at patient's floor/unit and/or counseling patient: - Subjective Interval history: Patient clinically worse this am - developed hypotension and required central line placement with addition of vasopressors. Decreased responsiveness. Thick lee secretions. Antibiotics have been adjusted this am. - Constitutional Vitals: Abnormal lab results RBC 3.41 M/mcL (3.82-4.97) L 07/22/17 04:00 Hgb 9.3 g/dL (11.5-15.4) L 07/22/17 04:00 Hct 31.0 % (35.3-44.9) L 07/22/17 04:00 MCH 27.3 pg (28.0-33.3) L 07/22/17 04:00 MCHC 30.0 g/dL (31.6-35.5) L 07/22/17 04:00 RDW 14.7 % (11.5-14.5) H 07/22/17 04:00 Plt Count 127 K/mcL (140-400) L 07/22/17 04:00 MPV 13.3 fL (9.4-12.4) H 07/22/17 04:00 Lymphocytes # 0.3 K/mcL (0.6-4.6) L 07/18/17 04:00 Nucleated RBCs/100 WBC 0.3 /100 WBC (0) H 07/18/17 04:00 Immature Plt Fraction 15.4 % (1.1-6.1) H 07/21/17 03:40 APTT 66.6 Seconds (26.0-36.0) H 07/20/17 03:41 D-Dimer 565 ng/mLFEU (0-500) H 07/17/17 03:46 Heparin Anti-Xa, Unfract 0.99 IU/mL (0.30-0.70) H 07/18/17 06:00 ABG pH 7.26 pH Units (7.32-7.45) L 07/22/17 04:16 ABG pCO2 65 mmHg (35-45) H 07/22/17 04:16 ABG pO2 53 mmHg (85-104) L 07/22/17 04:16 ABG HCO3 29 mEq/L (21-27) H 07/22/17 04:16 ABG Total CO2 31 mEq/L (20-26) H 07/22/17 04:16 ABG O2 Saturation 81 % (95-98) L 07/22/17 04:16 VBG pH 7.29 pH Units (7.32-7.42) L 07/18/17 06:29 VBG pCO2 54 mmHg (41-51) H 07/18/17 06:29 VBG pO2 164 mmHg (25-50) H 07/18/17 06:29 Chloride 108 mEq/L (98-107) H 07/22/17 04:00 BUN 35 mg/dL (6-20) H 07/22/17 04:00 BUN/Creatinine Ratio 38 (6-26) H 07/22/17 04:00 Glucose 183 mg/dL (70-105) H 07/22/17 04:00 POC Glucose 152 (58-89) H 07/22/17 07:28 Calculated Osmolality 309 (280-300) H 07/22/17 04:00 Venous Ioniz Calcium 1.09 mmol/L (1.15-1.35) L 07/21/17 04:04 Troponin I 0.69 ng/mL (< 0.04) H* 07/18/17 04:00 B-Natriuretic Peptide 207 pg/mL (Less than 100) H 07/17/17 15:27 Ur Specific [place] 1.029 (1.010-1.025) H 07/17/17 05:45 General appearance: Present: no acute distress - Respiratory Additional comments: Rhonchi noted throughout all lung [place]. Thick lee secretions. Vent settings 40% FIO2/PEEP 5. - Cardiovascular Cardiovascular exam: Present: tachycardia - GI/Abdominal GI/Abdominal exam: Present: diminished bowel sounds, distended - Extremities Exam Extremities exam: Present: normal capillary refill, normal inspection - Neurological Exam Additional comments: On paralytic - Skin Skin exam: Present: dry, pallor, warm Palliative Quality Palliative Quality: Screen for Code Status: Yes, Screen for Goals of Care: NA, Screen for Pain: Yes, If Pain Regimen Started, Initiate Bowel Regimen: NA, Screen for Nausea/Vomitting: NA Code Status: 07/17/17 11:52 FULL [Resuscitation Status: Active] [RES] Routine Comment: Resuscitation Status: Full Code - Labs CBC & Chem 7: 07/22/17 04:00 07/22/17 04:00 Labs: Laboratory Results - last 24 hr 07/21/17 07/21/17 07/21/17 12:46 16:27 19:33 WBC RBC Hgb Hct MCV MCH MCHC RDW Plt Count MPV Sample Site ABG pH ABG pCO2 ABG pO2 ABG HCO3 ABG Total CO2 ABG O2 Saturation ABG Base Excess David Test Respiration Rate O2 Delivery Device Blood Gas Modality Inspired O2 Tidal Volume PEEP Sodium Potassium Chloride Carbon Dioxide BUN Creatinine Est GFR ( Amer) Est GFR (Non-Af Amer) BUN/Creatinine Ratio Glucose POC Glucose 107 H 122 H 140 H Calculated Osmolality Calcium Phosphorus Magnesium 07/22/17 07/22/17 07/22/17 00:21 04:00 04:00 WBC 9.2 RBC 3.41 L Hgb 9.3 L Hct 31.0 L MCV 90.9 MCH 27.3 L MCHC 30.0 L RDW 14.7 H Plt Count 127 L MPV 13.3 H Sample Site ABG pH ABG pCO2 ABG pO2 ABG HCO3 ABG Total CO2 ABG O2 Saturation ABG Base Excess David Test Respiration Rate O2 Delivery Device Blood Gas Modality Inspired O2 Tidal Volume PEEP Sodium 143 Potassium 4.7 Chloride 108 H Carbon Dioxide 28 BUN 35 H Creatinine 0.93 Est GFR ( Amer) > 60 Est GFR (Non-Af Amer) > 60 BUN/Creatinine Ratio 38 H Glucose 183 H POC Glucose 154 H Calculated Osmolality 309 H Calcium 9.1 Phosphorus 3.2 Magnesium 2.4 07/22/17 07/22/17 07/22/17 04:16 04:23 07:28 WBC RBC Hgb Hct MCV MCH MCHC RDW Plt Count MPV Sample Site R Radial ABG pH 7.26 L ABG pCO2 65 H ABG pO2 53 L ABG HCO3 29 H ABG Total CO2 31 H ABG O2 Saturation 81 L ABG Base Excess 1 David Test N/A Respiration Rate 10 O2 Delivery Device Adult Vent Blood Gas Modality VC Inspired O2 40.0 Tidal Volume 450 PEEP 5 Sodium Potassium Chloride Carbon Dioxide BUN Creatinine Est GFR ( Amer) Est GFR (Non-Af Amer) BUN/Creatinine Ratio Glucose POC Glucose 180 H 152 H Calculated Osmolality Calcium Phosphorus Magnesium - Impressions Impressions Chest X-Ray 07/22/17 07:57 IMPRESSION: 1. Trace bilateral pleural effusions. 2. Developing left lower lobe consolidative changes which may represent pneumonia. D/ / 07/22/2017 09:05:19 John Phan MD / Laxmi Mattehws Interpreting Provider: John Phan MD - ABG Interpretation ABG results: ABG ABG pH 7.26 pH Units (7.32-7.45) L 07/22/17 04:16 ABG pCO2 65 mmHg (35-45) H 07/22/17 04:16 ABG pO2 53 mmHg (85-104) L 07/22/17 04:16 ABG O2 Saturation 81 % (95-98) L 07/22/17 04:16 PT/INR, D-dimer PT 11.9 Seconds (9.4-12.1) 07/17/17 03:46 D-Dimer 565 ng/mLFEU (0-500) H 07/17/17 03:46 Consult Discharge Plan - Plan Referrals: NONE,PCP [Primary Care Provider] -
[2017-07-22] MEDS ORDERED: Albuterol 2.5 MG/3 ML NEBULIZER IH PRN (11:13)
[2017-07-22 12:02] LABS: ABG Base Excess 1 mEq/L (-2 to 3); ABG HCO3 28 mEq/L (21-27); ABG Oxygen Saturation 98 % (95-98); ABG PCO2 56 mmHg (35-45); ABG PH 7.31 pH Units (7.32-7.45); ABG PO2 109 mmHg (85-104); ABG TCO2 30 mEq/L (20-26); Blood Gas Modality PRVC; Blood Gas PEEP 5 cm H2O; Blood Gas Respiration Rate 14; Blood Gas VT 440 cc
[2017-07-22] MEDS: Piperacillin/Tazobactam 3.375 GM in 0.9 % Sodium Chloride Mini Bag 100 ML IVPB SCH ×2 (12:07→20:02)
--- NOTE | 2017-07-22 12:43 | Sepsis Event Note ---
Sepsis Reassessment Note - Evaluation Sepsis Screen: No Definite Risk Current Stage of Sepsis: septic shock Possible Source of Sepsis: pulmonary - Focused Exam Date of Encounter: 07/22/17 Time of Encounter: 12:42 Vital Signs: Vital Signs Temp Pulse Resp BP Pulse Ox 07/22/17 10:00 129 14 96/79 99 07/22/17 09:00 101 12 143/93 97 07/22/17 08:00 97.8 F 92 12 97/77 98 07/22/17 07:44 84 07/22/17 07:00 84 12 113/90 98 07/22/17 06:00 89 12 87/74 98 07/22/17 05:08 12 98 07/22/17 05:00 94 12 84/65 98 07/22/17 04:00 99.3 F 86 10 91/65 96 07/22/17 03:55 10 97 07/22/17 03:00 85 10 99/74 98 07/22/17 02:00 92 10 106/80 98 07/22/17 01:00 98 10 108/80 97 Respiratory Exam: Present: wheezes, crackles Cardiovascular Exam: Present: tachycardia Capillary Refill: > 2 seconds Peripheral Pulse Strength: 2+ slightly diminished Peripheral Pulse Location: Pedal Skin Exam: pallor (Patient has undergone fluid resuscitation lactate within normal limits but she remains on vasopressor)
--- NOTE | 2017-07-22 16:18 | Electrocardiograph Report ---
[address] [place], [place] [address] Test Date: 2017-07-17 Pat Name: Amy Vaughn Department: 109 Room: 11 Gender: F Marketing Underwriter: : [id number] Requested By: Herlinda Yee Order Number: [id number] Reading MD: Dunia Gomez Measurements Intervals [place] Rate: 76 P: 83 NE: 152 QRS: 65 QRSD: 87 T: 105 QT: 421 QTc: 452 Interpretive Statements SINUS RHYTHM NONSPECIFIC ST-T ABNORMALITIES - CONSIDER ISCHEMIA Electronically Signed On 07-22-2017 15:49:40 EDT by Dunia Gomez
[2017-07-23] MEDS: Vecuronium 50 MG in 0.9 % Sodium Chloride 150 ML IVC SCH ×3 (01:07→19:30)
[2017-07-23] MEDS: Ipratropium/Albuterol Neb 3 ML IH SCH ×6 (03:34→23:09)
[2017-07-23 03:38] LABS: Basophils # 0.1 K/mcL (0.0-0.2); Basophils % 0.4 %; Hematocrit 31.5 % (35.3-44.9); Hemoglobin 9.6 g/dL (11.5-15.4); Immature Granulocytes % 4.9 % (0-4); Lymphocytes # 0.7 K/mcL (0.6-4.6); Lymphocytes % 4.1 %; Mean Corpuscular HGB Conc 30.5 g/dL (31.6-35.5); Mean Corpuscular Hemoglobin 27.4 pg (28.0-33.3); Mean Corpuscular Volume 89.7 fL (83.0-100.0); Monocytes # 0.8 K/mcL (0.0-1.3); Monocytes % 4.9 %; Nucleated Red Blood Cells 0.6 /100 WBC (0); Platelet Count 152 K/mcL (140-400); Red Blood Count 3.51 M/mcL (3.82-4.97); Red Cell Distribution Width 14.9 % (11.5-14.5); Segmented Neutrophils % 85.7 %
[2017-07-23 03:40] LABS: VBG Ionized Calcium 1.13 mmol/L (1.15-1.35)
[2017-07-23 03:42] LABS: Neutrophils # 13.9 K/mcL (1.6-8.9)
[2017-07-23 03:56] LABS: Calcium 8.2 mg/dL (8.6-10.3); Potassium 5.2 mEq/L (3.5-5.1)
[2017-07-23 03:57] LABS: Phosphorous 2.6 mg/dL (2.7-4.5)
[2017-07-23 04:00] LABS: Hypochromasia Present (Not Present); Platelet Estimate Normal (Normal)
[2017-07-23] MEDS: Lacri-Lube 3.5 GM TUBE BOTH EYES SCH ×6 (04:44→23:45)
[2017-07-23] MEDS: *HR* Heparin 5,000 UNIT/ML VIAL SQ SCH ×2 (04:44→16:51)
[2017-07-23] MEDS: Insulin LISPRO 300 UNITS/3 ML VIAL SQ SCH ×6 (04:44→20:00)
[2017-07-23] MEDS: Piperacillin/Tazobactam 3.375 GM in 0.9 % Sodium Chloride Mini Bag 100 ML IVPB SCH ×3 (04:45→19:59)
[2017-07-23 05:04] LABS: ABG Base Excess 1 mEq/L (-2 to 3); ABG HCO3 28 mEq/L (21-27); ABG Oxygen Saturation 98 % (95-98); ABG PCO2 54 mmHg (35-45); ABG PH 7.32 pH Units (7.32-7.45); ABG PO2 109 mmHg (85-104); ABG TCO2 29 mEq/L (20-26); Blood Gas Modality VC; Blood Gas PEEP 5 cm H2O; Blood Gas Respiration Rate 145; Blood Gas VT 440 cc
[2017-07-23] MEDS: Budesonide/Formoterol 160/4.5 MDI IH SCH ×2 (07:49→19:35)
[2017-07-23] MEDS: MethylPREDNISolone 40 MG/ML VIAL IVP SCH ×3 (08:34→23:44)
[2017-07-23] MEDS: Nicotine 14 MG PATCH.TD24 TD SCH (08:34)
[2017-07-23] MEDS: Chlorhexidine Rinse 15 ML MOUTHWASH MM SCH ×2 (08:35→20:00)
[2017-07-23] MEDS: Norepinephrine 4 MG in D5% in Water 250 ML IVC SCH (08:35)
[2017-07-23] MEDS: Bisacodyl 10 MG RECTAL SUPPOSITORY RC SCH (08:35)
[2017-07-23] MEDS: Pantoprazole 40 MG VIAL IVP SCH (08:35)
--- NOTE | 2017-07-23 08:56 | Palliative Progress Note ---
Date of Encounter: 07/23/17 Time of Encounter: 12:30 - Assessment and plan (1) Generalized pain Current Visit: Yes Status: Acute (2) Anxiety Current Visit: No Status: Chronic Assessment and plan: She remains on Vecuronium. (3) Goals of care, counseling/discussion Current Visit: Yes Status: Acute Assessment and plan: Spoke with Kiet, son via telephone. Updated on pt condition, and Kiet is aware that ID and ENT consults have been ordered on pt, and I notified him that ICU staff will likely get in touch with him to schedule meeting to further discuss goals of care. Kiet verbalized understanding, and states he will be available and can be contacted by phone number listed in pt room on board. D/W Dr. Solo and Dr. Herlinda Yee. (4) Acute exacerbation of chronic obstructive airways disease Current Visit: No Status: Acute (5) Acute and chronic respiratory failure with hypercapnia Current Visit: No Status: Resolved - Time Spent With Patient Total time spent is greater than 50% in coordination of care (as documented) at patient's floor/unit and/or counseling patient: - Subjective Interval history: Patient with temp spike 102.4 yesterday. Remains on paralytic. Increased WBC 16.2 this am. Sputum culture + MRSA. ID consult has been placed. - Constitutional Vitals: Abnormal lab results WBC 16.2 K/mcL (4.3-11.1) H D 07/23/17 03:27 RBC 3.51 M/mcL (3.82-4.97) L 07/23/17 03:27 Hgb 9.6 g/dL (11.5-15.4) L 07/23/17 03:27 Hct 31.5 % (35.3-44.9) L 07/23/17 03:27 MCH 27.4 pg (28.0-33.3) L 07/23/17 03:27 MCHC 30.5 g/dL (31.6-35.5) L 07/23/17 03:27 RDW 14.9 % (11.5-14.5) H 07/23/17 03:27 MPV 13.0 fL (9.4-12.4) H 07/23/17 03:27 Immature Gran % 4.9 % (0-4) H 07/23/17 03:27 Neutrophils # 13.9 K/mcL (1.6-8.9) H 07/23/17 03:27 Nucleated RBCs/100 WBC 0.6 /100 WBC (0) H 07/23/17 03:27 Immature Plt Fraction 15.4 % (1.1-6.1) H 07/21/17 03:40 Hypochromasia Present (Not Present) A 07/23/17 03:27 APTT 66.6 Seconds (26.0-36.0) H 07/20/17 03:41 D-Dimer 565 ng/mLFEU (0-500) H 07/17/17 03:46 Heparin Anti-Xa, Unfract 0.99 IU/mL (0.30-0.70) H 07/18/17 06:00 ABG pCO2 54 mmHg (35-45) H 07/23/17 04:59 ABG pO2 109 mmHg (85-104) H 07/23/17 04:59 ABG HCO3 28 mEq/L (21-27) H 07/23/17 04:59 ABG Total CO2 29 mEq/L (20-26) H 07/23/17 04:59 VBG pH 7.29 pH Units (7.32-7.42) L 07/18/17 06:29 VBG pCO2 54 mmHg (41-51) H 07/18/17 06:29 VBG pO2 164 mmHg (25-50) H 07/18/17 06:29 Potassium 5.2 mEq/L (3.5-5.1) H 07/23/17 03:27 BUN 40 mg/dL (6-20) H 07/23/17 03:27 Est GFR (Non-Af Amer) 49 (> 60) L 07/23/17 03:27 BUN/Creatinine Ratio 35 (6-26) H 07/23/17 03:27 Glucose 134 mg/dL (70-105) H 07/23/17 03:27 POC Glucose 233 (58-89) H 07/23/17 07:50 Calcium 8.2 mg/dL (8.6-10.3) L 07/23/17 03:27 Venous Ioniz Calcium 1.13 mmol/L (1.15-1.35) L 07/23/17 03:37 Phosphorus 2.6 mg/dL (2.7-4.5) L 07/23/17 03:27 Troponin I 0.69 ng/mL (< 0.04) H* 07/18/17 04:00 B-Natriuretic Peptide 207 pg/mL (Less than 100) H 07/17/17 15:27 Ur Specific [place] 1.029 (1.010-1.025) H 07/17/17 05:45 General appearance: Present: no acute distress - Respiratory Additional comments: Lungs with rhonchi throughout. Remain on paralytic/vent support/steroids/ bronchodilators. + MRSA sputum culture. ID has been consulted - Cardiovascular Cardiovascular exam: Present: +S1, +S2 - GI/Abdominal GI/Abdominal exam: Present: diminished bowel sounds, distended - Extremities Exam Additional comments: Generalized edema to all extremities. Feet cool to touch - Neurological Exam Additional comments: Sedated on vent - Skin Skin exam: Present: dry, pallor Palliative Quality Palliative Quality: Screen for Code Status: Yes, Screen for Goals of Care: NA, Screen for Pain: Yes, If Pain Regimen Started, Initiate Bowel Regimen: NA, Screen for Nausea/Vomitting: NA Code Status: 07/17/17 11:52 FULL [Resuscitation Status: Active] [RES] Routine Comment: Resuscitation Status: Full Code - Labs CBC & Chem 7: 07/23/17 03:27 07/23/17 03:27 Labs: Laboratory Results - last 24 hr 07/22/17 07/22/17 07/22/17 10:37 11:56 12:10 WBC RBC Hgb Hct MCV MCH MCHC RDW Plt Count MPV Immature Gran % Seg Neutrophils % Lymphocytes % Monocytes % Eosinophils % Basophils % Neutrophils # Lymphocytes # Monocytes # Eosinophils # Basophils # Nucleated RBCs/100 WBC Platelet Estimate Hypochromasia Sample Site ABG pH 7.31 L ABG pCO2 56 H ABG pO2 109 H ABG HCO3 28 H ABG Total CO2 30 H ABG O2 Saturation 98 ABG Base Excess 1 Respiration Rate 14 O2 Delivery Device Adult Vent Blood Gas Modality PRVC Inspired O2 50.0 Tidal Volume 440 PEEP 5 Sodium Potassium Chloride Carbon Dioxide BUN Creatinine Est GFR ( Amer) Est GFR (Non-Af Amer) BUN/Creatinine Ratio Glucose POC Glucose 200 H Calculated Osmolality Lactic Acid 1.5 Calcium Venous Ioniz Calcium Phosphorus Magnesium 07/22/17 07/22/17 07/22/17 16:27 20:08 23:36 WBC RBC Hgb Hct MCV MCH MCHC RDW Plt Count MPV Immature Gran % Seg Neutrophils % Lymphocytes % Monocytes % Eosinophils % Basophils % Neutrophils # Lymphocytes # Monocytes # Eosinophils # Basophils # Nucleated RBCs/100 WBC Platelet Estimate Hypochromasia Sample Site ABG pH ABG pCO2 ABG pO2 ABG HCO3 ABG Total CO2 ABG O2 Saturation ABG Base Excess Respiration Rate O2 Delivery Device Blood Gas Modality Inspired O2 Tidal Volume PEEP Sodium Potassium Chloride Carbon Dioxide BUN Creatinine Est GFR ( Amer) Est GFR (Non-Af Amer) BUN/Creatinine Ratio Glucose POC Glucose 197 H 217 H 202 H Calculated Osmolality Lactic Acid Calcium Venous Ioniz Calcium Phosphorus Magnesium 07/23/17 07/23/17 07/23/17 03:27 03:27 03:27 WBC 16.2 H D RBC 3.51 L Hgb 9.6 L Hct 31.5 L MCV 89.7 MCH 27.4 L MCHC 30.5 L RDW 14.9 H Plt Count 152 MPV 13.0 H Immature Gran % 4.9 H Seg Neutrophils % 85.7 Lymphocytes % 4.1 Monocytes % 4.9 Eosinophils % 0.0 Basophils % 0.4 Neutrophils # 13.9 H Lymphocytes # 0.7 Monocytes # 0.8 Eosinophils # 0.0 Basophils # 0.1 Nucleated RBCs/100 WBC 0.6 H Platelet Estimate Normal Hypochromasia Present A Sample Site ABG pH ABG pCO2 ABG pO2 ABG HCO3 ABG Total CO2 ABG O2 Saturation ABG Base Excess Respiration Rate O2 Delivery Device Blood Gas Modality Inspired O2 Tidal Volume PEEP Sodium 139 Potassium 5.2 H Chloride 107 Carbon Dioxide 29 BUN 40 H Creatinine 1.13 Est GFR ( Amer) 60 Est GFR (Non-Af Amer) 49 L BUN/Creatinine Ratio 35 H Glucose 134 H POC Glucose Calculated Osmolality 300 Lactic Acid Calcium 8.2 L Venous Ioniz Calcium Phosphorus 2.6 L Magnesium 2.0 07/23/17 07/23/17 07/23/17 03:37 03:50 04:59 WBC RBC Hgb Hct MCV MCH MCHC RDW Plt Count MPV Immature Gran % Seg Neutrophils % Lymphocytes % Monocytes % Eosinophils % Basophils % Neutrophils # Lymphocytes # Monocytes # Eosinophils # Basophils # Nucleated RBCs/100 WBC Platelet Estimate Hypochromasia Sample Site R Brach ABG pH 7.32 ABG pCO2 54 H ABG pO2 109 H ABG HCO3 28 H ABG Total CO2 29 H ABG O2 Saturation 98 ABG Base Excess 1 Respiration Rate 145 O2 Delivery Device Adult Vent Blood Gas Modality VC Inspired O2 40.0 Tidal Volume 440 PEEP 5 Sodium Potassium Chloride Carbon Dioxide BUN Creatinine Est GFR ( Amer) Est GFR (Non-Af Amer) BUN/Creatinine Ratio Glucose POC Glucose 133 H Calculated Osmolality Lactic Acid Calcium Venous Ioniz Calcium 1.13 L Phosphorus Magnesium 07/23/17 07:50 WBC RBC Hgb Hct MCV MCH MCHC RDW Plt Count MPV Immature Gran % Seg Neutrophils % Lymphocytes % Monocytes % Eosinophils % Basophils % Neutrophils # Lymphocytes # Monocytes # Eosinophils # Basophils # Nucleated RBCs/100 WBC Platelet Estimate Hypochromasia Sample Site ABG pH ABG pCO2 ABG pO2 ABG HCO3 ABG Total CO2 ABG O2 Saturation ABG Base Excess Respiration Rate O2 Delivery Device Blood Gas Modality Inspired O2 Tidal Volume PEEP Sodium Potassium Chloride Carbon Dioxide BUN Creatinine Est GFR ( Amer) Est GFR (Non-Af Amer) BUN/Creatinine Ratio Glucose POC Glucose 233 H Calculated Osmolality Lactic Acid Calcium Venous Ioniz Calcium Phosphorus Magnesium - Impressions Impressions Chest X-Ray 07/22/17 07:57 IMPRESSION: 1. Trace bilateral pleural effusions. 2. Developing left lower lobe consolidative changes which may represent pneumonia. D/ / 07/22/2017 09:05:19 John Phan MD / Laxmi Matthews Interpreting Provider: John Phan MD Head CT 07/22/17 15:30 IMPRESSION: No acute intracranial abnormality. Patient has atrophy and chronic microvascular changes. Patient has pansinusitis with air-fluid levels in the right maxillary sinus. There are also fluid levels in the mastoid air cells consistent with mastoiditis. D/ / 07/22/2017 16:03:17 Sophie Torrez MD / Laxmi Matthews Interpreting Provider: Sophie Torrez MD - ABG Interpretation ABG results: ABG ABG pH 7.32 pH Units (7.32-7.45) 07/23/17 04:59 ABG pCO2 54 mmHg (35-45) H 07/23/17 04:59 ABG pO2 109 mmHg (85-104) H 07/23/17 04:59 ABG O2 Saturation 98 % (95-98) 07/23/17 04:59 PT/INR, D-dimer PT 11.9 Seconds (9.4-12.1) 07/17/17 03:46 D-Dimer 565 ng/mLFEU (0-500) H 07/17/17 03:46 Consult Discharge Plan - Plan Referrals: NONE,PCP [Primary Care Provider] -
--- NOTE | 2017-07-23 09:01 | Pulmonology Progress Note ---
<Herlinda Yee - Last Filed: 07/23/17 11:13> Date of Encounter: 07/23/17 Time of Encounter: 08:00 Assessment and Plan (1) Acute respiratory failure with hypoxia Current Visit: No Status: Acute Patient began satting in the 80s while in SVT. Patient intubated on 07/17/17 and sedated. CXR negative. CTA negative for PE but did show bronchial wall thickening and mucous plugging with severe emphysematous changes. Troponin negative x1 then increased to a max of 1.06 but now trending down to 0.69. Patient extubated 07/18 and was on BIPAP FiO2 35%. Patient reintubated later that morning as patient went into SVT and worsening respiratory failure. See event note for details. 07/21: patient was having hypotension and with less sedation had decreased responsiveness. Chest x-ray, head CT, lactic acid and blood cultures ordered. Started Levophed. Began Vecuronium for lung rest. Concern for her condition may not improve. She is still full code and may need tracheostomy. Palliative care on board and discussed with family who said that she did not want a trach. 07/22: Head CT showed pansinusitis and mastoiditis. 07/23: Overnight, febrile max 102.4F. Increase WBC = 16.2 (9.2) and found to be in septic shock requiring Levophed. This morning patient is off of Levophed with normal BPs and is afebrile. Consult ID and ENT. Due to patient being unstable did not perform MRI. plan: - consult to ID and ENT - central line placed - Solumedrol 40mg IV Q8hrs - Duonebs scheduled Q4hrs, prn Q2hrs - Symbicort - antibiotics: Zyvox ( day 2) and Zosyn (day 2). s/p Levoquin (5 days), Vanco ( 2 days) - sedation: Precedex, Fentanyl, Versed - paralytic: Vecuronium - repeat BC drawn 07/22/17 pending , BC 07/17/17 prelim no growth - sputum culture 07/19 growing MRSA, 07/17 normal resp shefali. Sputum culture 07/19 few gram + cocci, + rods - restarted tube feeds 07/21/17 (2) Acute exacerbation of chronic obstructive airways disease Current Visit: No Status: Acute Hx of COPD with home meds of Incruse Ellipta, Symbicort, albuterol. Patient initially did have fever of 101.4F upon arrival but temp wnl since. See plan above. (3) Elevated troponin Current Visit: Yes Status: Acute Patient's initial troponin negative with an initial EKG showing ST depression in V3-V6. Patient went into SVT resolved with adenosine and lopressor. Patient' s repeat Troponin = 0.56. Repeat EKG showed inversion of T-waves in V2-V5. Cardiology was consulted, echo ordered, and low dose heparin drip started. Last nuclear stress test 2016, showed EF 70%, no ischemia. Echo 07/17/17: LVEF 60-65%, mild LV diastolic dysfunction, atypical septal motion consistent with post-op status. No valvular dysfunction. Plan: - Heparin drip stopped - cardiology consulted and believe due to demand ischemia no further cardiac work-up needed. signed off. (4) Hypotension Current Visit: Yes Status: Acute Pt has powerglider and femoral central line. Currently not on Levophed. Qualifiers: Hypotension type: unspecified hypotension type Qualified Code(s): I95.9 - Hypotension, unspecified (5) Diastolic heart failure Current Visit: No Status: Acute Hx of diastolic CHF. Nuclear stress 09/23/16 showed EF>70%, negative for ischemia. Echo is pending. BNP= 207. Patient is on Lasix at home but due to low normal BP and no rales will hold Lasix for now. Echo showed preserve EF mild LV diastolic dysfunction. On physical exam today, patient looks fluid overloaded as new onset pitting edema in all extremities. We will continue to monitor. Qualifiers: Heart failure chronicity: acute on chronic Qualified Code(s): I50.33 - Acute on chronic diastolic (congestive) heart failure Subjective Principal diagnosis: acute respiratory failure with hypoxia Interval history: Ms. Scott is a 57-year-old female past medical history of COPD on 2 L, CAD status post CABG, and diastolic congestive heart failure found have acute respiratory failure secondary to COPD. 07/18, patient was extubated and is on BiPAP FiO2 35% and satting in the 90s. After extubation, patient had moderate respiratory distress with tachycardia and tachypnea on BiPAP FiO2 35%. Patient proceeded to go into SVT and was given Cardizem 5 mg. Patient had short run of V. tach and was given another 5 mg of Cardizem IVP. Patient's heart rate began to respond but patient continued increase work of breathing and decision was made to reintubate. Patient's HR returned to normal range. Overnight patient was febrile with a maximum temperature 102.4F. patient's WBCs increased from 9.2 to 16.2 and was found to be in septic shock. Patient required Levophed. This morning patient has been afebrile. He has been weaned off Levophed. Patient is currently sedated on fentanyl, Versed, and Precedex. Patient is paralyzed on vecuronium. Central line was placed 07/22/17. Objective PUL Vital signs: Last Vital Signs Temp 98.8 F 07/23/17 03:49 Pulse 86 07/23/17 08:00 Resp 15 07/23/17 07:51 BP 119/77 07/23/17 07:51 Pulse Ox 98 07/23/17 07:51 Constitutional: intubated, resting Head: Normocephalic, atraumatic Heart: regular rhythm and rate, no murmurs Lungs: + wheezing , mech ventilator at FiO2 40%, Abdomen: Soft, mild distended, nontender, no guarding or rigidity. Extremities: + 1 pitting edema lower extremities and upper extremities, No clubbing, radial pulse +2/4, capillary refill <2sec. Skin: Skin warm and dry, no jaundice Neurologic: patient is on Vecoronium therefore is not responding to painful stimuli line: powerglider, central femoral line Ventilator Settings Ventilator Settings: Ventilator Settings, Last 8 Hours Ventilator Mode VC+ Ventilator Mode VC+ Ventilator Mode VC+ Ventilator Mode VC+ Ventilator Mode VC+ Ventilator Mode VC+ Ventilator Mode VC+ Ventilator Mode VC+ Ventilator Mode VC+ Ventilator Mode VC+ Ventilator Mode VC+ Ventilator Tidal Volume 440 Setting Ventilator Tidal Volume 440 Setting Ventilator Tidal Volume 440 Setting Ventilator Tidal Volume 440 Setting Ventilator Tidal Volume 440 Setting Ventilator Tidal Volume 440 Setting Ventilator Tidal Volume 440 Setting Ventilator Tidal Volume 440 Setting Ventilator Tidal Volume 440 Setting Ventilator Tidal Volume 440 Setting Ventilator Tidal Volume 440 Setting Ventilator Respiratory Rate 14 Setting Ventilator Respiratory Rate 14 Setting Ventilator Respiratory Rate 14 Setting Ventilator Respiratory Rate 14 Setting Ventilator Respiratory Rate 14 Setting Ventilator Respiratory Rate 14 Setting Ventilator Respiratory Rate 14 Setting Ventilator Respiratory Rate 14 Setting Ventilator Respiratory Rate 14 Setting Ventilator Respiratory Rate 14 Setting Ventilator Respiratory Rate 14 Setting Actual Respiratory Rate 14 Actual Respiratory Rate 14 Actual Respiratory Rate 14 Actual Respiratory Rate 14 Actual Respiratory Rate 14 Actual Respiratory Rate 14 Actual Respiratory Rate 14 Actual Respiratory Rate 14 Actual Respiratory Rate 14 Actual Respiratory Rate 14 Positive End Expiratory 5 Pressure Positive End Expiratory 5 Pressure Positive End Expiratory 5 Pressure Positive End Expiratory 5 Pressure Positive End Expiratory 5 Pressure Positive End Expiratory 5 Pressure Positive End Expiratory 5 Pressure Positive End Expiratory 5 Pressure Positive End Expiratory 5 Pressure Positive End Expiratory 5 Pressure Positive End Expiratory 5 Pressure Peak Inspiratory Airway 46 Pressure Peak Inspiratory Airway 49 Pressure Peak Inspiratory Airway 44 Pressure Peak Inspiratory Airway 44 Pressure Peak Inspiratory Airway 44 Pressure Peak Inspiratory Airway 44 Pressure Peak Inspiratory Airway 43 Pressure Results - Laboratory Findings CBC and BMP: 07/23/17 03:27 07/23/17 03:27 ABG ABG pH 7.32 pH Units (7.32-7.45) 07/23/17 04:59 ABG pCO2 54 mmHg (35-45) H 07/23/17 04:59 ABG pO2 109 mmHg (85-104) H 07/23/17 04:59 ABG O2 Saturation 98 % (95-98) 07/23/17 04:59 PT/INR, D-dimer PT 11.9 Seconds (9.4-12.1) 07/17/17 03:46 D-Dimer 565 ng/mLFEU (0-500) H 07/17/17 03:46 Abnormal lab findings: Abnormal lab results WBC 16.2 K/mcL (4.3-11.1) H D 07/23/17 03:27 RBC 3.51 M/mcL (3.82-4.97) L 07/23/17 03:27 Hgb 9.6 g/dL (11.5-15.4) L 07/23/17 03:27 Hct 31.5 % (35.3-44.9) L 07/23/17 03:27 MCH 27.4 pg (28.0-33.3) L 07/23/17 03:27 MCHC 30.5 g/dL (31.6-35.5) L 07/23/17 03:27 RDW 14.9 % (11.5-14.5) H 07/23/17 03:27 MPV 13.0 fL (9.4-12.4) H 07/23/17 03:27 Immature Gran % 4.9 % (0-4) H 07/23/17 03:27 Neutrophils # 13.9 K/mcL (1.6-8.9) H 07/23/17 03:27 Nucleated RBCs/100 WBC 0.6 /100 WBC (0) H 07/23/17 03:27 Immature Plt Fraction 15.4 % (1.1-6.1) H 07/21/17 03:40 Hypochromasia Present (Not Present) A 07/23/17 03:27 APTT 66.6 Seconds (26.0-36.0) H 07/20/17 03:41 D-Dimer 565 ng/mLFEU (0-500) H 07/17/17 03:46 Heparin Anti-Xa, Unfract 0.99 IU/mL (0.30-0.70) H 07/18/17 06:00 ABG pCO2 54 mmHg (35-45) H 07/23/17 04:59 ABG pO2 109 mmHg (85-104) H 07/23/17 04:59 ABG HCO3 28 mEq/L (21-27) H 07/23/17 04:59 ABG Total CO2 29 mEq/L (20-26) H 07/23/17 04:59 VBG pH 7.29 pH Units (7.32-7.42) L 07/18/17 06:29 VBG pCO2 54 mmHg (41-51) H 07/18/17 06:29 VBG pO2 164 mmHg (25-50) H 07/18/17 06:29 Potassium 5.2 mEq/L (3.5-5.1) H 07/23/17 03:27 BUN 40 mg/dL (6-20) H 07/23/17 03:27 Est GFR (Non-Af Amer) 49 (> 60) L 07/23/17 03:27 BUN/Creatinine Ratio 35 (6-26) H 07/23/17 03:27 Glucose 134 mg/dL (70-105) H 07/23/17 03:27 POC Glucose 233 (58-89) H 07/23/17 07:50 Calcium 8.2 mg/dL (8.6-10.3) L 07/23/17 03:27 Venous Ioniz Calcium 1.13 mmol/L (1.15-1.35) L 07/23/17 03:37 Phosphorus 2.6 mg/dL (2.7-4.5) L 07/23/17 03:27 Troponin I 0.69 ng/mL (< 0.04) H* 07/18/17 04:00 B-Natriuretic Peptide 207 pg/mL (Less than 100) H 07/17/17 15:27 Ur Specific [place] 1.029 (1.010-1.025) H 07/17/17 05:45 - Microbiology Findings Microbiology Findings: Microbiology, Last 48 Hours 07/22/17 20:44 Sputum Culture - Preliminary Sputum 07/19/17 16:12 Sputum Culture - Final Sputum Methicillin Resistant S.aureus - Clinical Findings Intake & Output: Intake & Output 07/22/17 07/23/17 07/23/17 23:59 07:59 15:59 Intake Total 1051 / 1051 989 / 989 150 / 150 Output Total 275 / 275 375 / 375 Balance 776 / 776 614 / 614 150 / 150 Weight 57.6 kg - VTE Documentation of Mechanical Device: Intermittent pneumatic compression device Consult Discharge Plan - Plan Referrals: NONE,PCP [Primary Care Provider] - <Golden Solo - Last Filed: 07/23/17 12:50> Date of Encounter: 07/23/17 Objective PUL Vital signs: Last Vital Signs Temp 98.8 F 07/23/17 03:49 Pulse 86 07/23/17 08:00 Resp 15 07/23/17 07:51 BP 119/77 07/23/17 07:51 Pulse Ox 98 07/23/17 07:51 Ventilator Settings Ventilator Settings: Ventilator Settings, Last 8 Hours Ventilator Mode VC+ Ventilator Mode VC+ Ventilator Mode VC+ Ventilator Mode VC+ Ventilator Mode VC+ Ventilator Mode VC+ Ventilator Mode VC+ Ventilator Mode VC+ Ventilator Mode VC+ Ventilator Mode VC+ Ventilator Tidal Volume 440 Setting Ventilator Tidal Volume 440 Setting Ventilator Tidal Volume 440 Setting Ventilator Tidal Volume 440 Setting Ventilator Tidal Volume 440 Setting Ventilator Tidal Volume 440 Setting Ventilator Tidal Volume 440 Setting Ventilator Tidal Volume 440 Setting Ventilator Tidal Volume 440 Setting Ventilator Tidal Volume 440 Setting Ventilator Respiratory Rate 14 Setting Ventilator Respiratory Rate 14 Setting Ventilator Respiratory Rate 14 Setting Ventilator Respiratory Rate 14 Setting Ventilator Respiratory Rate 14 Setting Ventilator Respiratory Rate 14 Setting Ventilator Respiratory Rate 14 Setting Ventilator Respiratory Rate 14 Setting Ventilator Respiratory Rate 14 Setting Ventilator Respiratory Rate 14 Setting Actual Respiratory Rate 14 Actual Respiratory Rate 14 Actual Respiratory Rate 14 Actual Respiratory Rate 14 Actual Respiratory Rate 14 Actual Respiratory Rate 14 Actual Respiratory Rate 14 Actual Respiratory Rate 14 Actual Respiratory Rate 14 Positive End Expiratory 5 Pressure Positive End Expiratory 5 Pressure Positive End Expiratory 5 Pressure Positive End Expiratory 5 Pressure Positive End Expiratory 5 Pressure Positive End Expiratory 5 Pressure Positive End Expiratory 5 Pressure Positive End Expiratory 5 Pressure Positive End Expiratory 5 Pressure Positive End Expiratory 5 Pressure Peak Inspiratory Airway 46 Pressure Peak Inspiratory Airway 49 Pressure Peak Inspiratory Airway 44 Pressure Peak Inspiratory Airway 44 Pressure Peak Inspiratory Airway 44 Pressure Peak Inspiratory Airway 44 Pressure Results - Laboratory Findings CBC and BMP: 07/23/17 03:27 07/23/17 03:27 ABG ABG pH 7.32 pH Units (7.32-7.45) 07/23/17 04:59 ABG pCO2 54 mmHg (35-45) H 07/23/17 04:59 ABG pO2 109 mmHg (85-104) H 07/23/17 04:59 ABG O2 Saturation 98 % (95-98) 07/23/17 04:59 PT/INR, D-dimer PT 11.9 Seconds (9.4-12.1) 07/17/17 03:46 D-Dimer 565 ng/mLFEU (0-500) H 07/17/17 03:46 Abnormal lab findings: Abnormal lab results WBC 16.2 K/mcL (4.3-11.1) H D 07/23/17 03:27 RBC 3.51 M/mcL (3.82-4.97) L 07/23/17 03:27 Hgb 9.6 g/dL (11.5-15.4) L 07/23/17 03:27 Hct 31.5 % (35.3-44.9) L 07/23/17 03:27 MCH 27.4 pg (28.0-33.3) L 07/23/17 03:27 MCHC 30.5 g/dL (31.6-35.5) L 07/23/17 03:27 RDW 14.9 % (11.5-14.5) H 07/23/17 03:27 MPV 13.0 fL (9.4-12.4) H 07/23/17 03:27 Immature Gran % 4.9 % (0-4) H 07/23/17 03:27 Neutrophils # 13.9 K/mcL (1.6-8.9) H 07/23/17 03:27 Nucleated RBCs/100 WBC 0.6 /100 WBC (0) H 07/23/17 03:27 Immature Plt Fraction 15.4 % (1.1-6.1) H 07/21/17 03:40 Hypochromasia Present (Not Present) A 07/23/17 03:27 APTT 66.6 Seconds (26.0-36.0) H 07/20/17 03:41 D-Dimer 565 ng/mLFEU (0-500) H 07/17/17 03:46 Heparin Anti-Xa, Unfract 0.99 IU/mL (0.30-0.70) H 07/18/17 06:00 ABG pCO2 54 mmHg (35-45) H 07/23/17 04:59 ABG pO2 109 mmHg (85-104) H 07/23/17 04:59 ABG HCO3 28 mEq/L (21-27) H 07/23/17 04:59 ABG Total CO2 29 mEq/L (20-26) H 07/23/17 04:59 VBG pH 7.29 pH Units (7.32-7.42) L 07/18/17 06:29 VBG pCO2 54 mmHg (41-51) H 07/18/17 06:29 VBG pO2 164 mmHg (25-50) H 07/18/17 06:29 Potassium 5.2 mEq/L (3.5-5.1) H 07/23/17 03:27 BUN 40 mg/dL (6-20) H 07/23/17 03:27 Est GFR (Non-Af Amer) 49 (> 60) L 07/23/17 03:27 BUN/Creatinine Ratio 35 (6-26) H 07/23/17 03:27 Glucose 134 mg/dL (70-105) H 07/23/17 03:27 POC Glucose 233 (58-89) H 07/23/17 07:50 Calcium 8.2 mg/dL (8.6-10.3) L 07/23/17 03:27 Venous Ioniz Calcium 1.13 mmol/L (1.15-1.35) L 07/23/17 03:37 Phosphorus 2.6 mg/dL (2.7-4.5) L 07/23/17 03:27 Troponin I 0.69 ng/mL (< 0.04) H* 07/18/17 04:00 B-Natriuretic Peptide 207 pg/mL (Less than 100) H 07/17/17 15:27 Ur Specific [place] 1.029 (1.010-1.025) H 07/17/17 05:45 - Microbiology Findings Microbiology Findings: Microbiology, Last 48 Hours 07/22/17 20:44 Sputum Culture - Preliminary Sputum 07/19/17 16:12 Sputum Culture - Final Sputum Methicillin Resistant S.aureus - Clinical Findings Intake & Output: Intake & Output 07/22/17 07/23/17 07/23/17 23:59 07:59 15:59 Intake Total 1051 / 1051 989 / 989 150 / 150 Output Total 275 / 275 375 / 375 Balance 776 / 776 614 / 614 150 / 150 Weight 57.6 kg - Attending Attestation I examined this patient and my medical decision-making was reviewed with the Resident Physician. I agree with the documented findings, disposition and treatment plan as described except to the extent set forth below. We independently had [id number] contact with the patient I spent 32min of Critical Care time with this patient. It involved decision making of high complexity to assess, manipulate, and support vital organ system failure and/or to prevent further life threatening deterioration of the patient' s condition. The time involved in the performance of separately reportable procedures was not counted toward critical care time. Patient seen and examined at bedside Labs, radiology, chart personally reviewed. Management was reviewed during multidisciplinary critical care rounds. [employer]: Sedated and paralyzed on vent eyes reactive to light head CT yesterday without evidence of stroke she does have evidence of everett sinusitis and mastoiditis consulting ENT as possibility of cavernous vein thrombosis or [employer] infection that may have led to alteration in mental status possibility. She is currently too unstable to send to MRI Pulm: Acute on chronic hypoxic hypercarbic respiratory failure with terminal COPD remains with elevated peak and plateau pressures with evidence of auto PEEP which is improved after initiation of paralysis this is complicated by underlying pneumonia we have increased frequency of bronchodilators continue steroids and antimicrobials. Cards: Vasodilatory shock secondary to sepsis on infusion of vasopressors but we are able to come down. FEN-GI: Continue enteral nutrition for dietary recommendations continue proton pump inhibitor for GI prophylaxis Renal: Urine output monitored ID: Treating for MRSA pneumonia and pansinusitis/mastoiditis adversely patient had spiking fevers overnight after adjustment of antimicrobials and repeat cultures we will consult infectious disease for further recommendations Heme/Onc: DVT prophylaxis given Endo: Glucose Monitored Integ/MSK: Skin Care per routine ICU Nursing Protocol to prevent ulcers. Lines: All lines examined without evidence of infection : Dispo: Remain in ICU CODE: Full code prognosis extremely poor palliative care is following
--- NOTE | 2017-07-23 09:13 | Infectious Disease Consult ---
Date of Encounter: 07/23/17 Time of Encounter: 09:09 Assessment and Plan (1) Septic shock due to methicillin resistant Staphylococcus aureus Status: Acute Assessment and plan: Patient has WBC 16.9, hypotension, increased oxygen requirements on mechanical ventilation Organism: MRSA in sputum - Blood cultures collected, sputum culture re-collected - Current antibiotics Zyvox and IV Zosyn Plan: Switch antibiotic coverage to IV vancomycin renally dose, per pharmacy duration 14 days, Continue IV Zosyn at this time. - Discontinue IV Zyvox with patient's thrombocytopenia and potential for bacteremia. Blood culture collected 07/22/17 pending (2) Ventilator-associated bacterial pneumonia Status: Acute Assessment and plan: Patient required mechanical ventilation since 07/17/17, initial sputum culture negative, sputum culture from 07/19 positive for MRSA - Complicated risk factors include severe COPD, mechanical ventilation - Blood cultures pending CrCl: 49 - Antibiotics as discussed above -Respiratory infectious panel -Urine strep pneumo, Legionella urine antigen, peripheral smear. (3) Acute and chronic respiratory failure with hypercapnia Status: Chronic Assessment and plan: Acute on chronic respiratory failure initially likely secondary to COPD exacerbation now with superimposed MRSA pneumonia. - Continue mechanical ventilation management per ICU team - Continue breathing treatments and IV steroids for management. (4) Pansinusitis Status: Acute Assessment and plan: Pansinusitis and mastoiditis identified on head CT performed 07/22/17 - Organism unknown - Primary team consult to ENT for further evaluation and management. - Antibiotic coverage for MRSA as discussed above. Qualifiers: Chronicity: chronic Qualified Code(s): J32.4 - Chronic pansinusitis (5) Thrombocytopenia Status: Acute Assessment and plan: Patient has thrombocytopenia, Zyvox not recommended as for further risk of worsening of thrombocytopenia in an acutely ill patient. (6) Leukocytosis Status: Acute Assessment and plan: WBC 16.9 - Significant elevation septic shock and decompensation since admission - Suspect secondary to MRSA pneumonia. Qualifiers: Leukocytosis type: unspecified Qualified Code(s): D72.829 - Elevated white blood cell count, unspecified (7) Persistent fever Status: Acute Assessment and plan: Patient continues to have a persistent fever which fluctuates since admission. -Possible pneumonia versus abdominal pathology. MRSA positive sputum culture. - We will continue current antibiotic therapy and monitor for improvement over the next few days. (8) Abdominal distention Status: Acute Assessment and plan: with hypoactive bowel sounds no BM since admission (9) Constipation Status: Acute Qualifiers: Constipation type: unspecified constipation type Qualified Code(s): K59.00 - Constipation, unspecified Infectious Disease HPI - Data of Consult Consult date: 07/23/17 Requesting Physician: Pasquale Garcia MD Primary Care Provider: PCP NONE - Consult Narrative Reason for consult: Antibiotic recommendations for MRSA PNA History of present illness: 57-year-old female presents via EMS 07/17/2017 from nursing facility due to chest pain, dyspnea. Infectious disease consult placed 07/23/2017 for antibiotic recommendations for MRSA pneumonia and septic shock. Patient currently intubated and sedated with no family at bedside, medical history obtained from medical records. 57 yo F with PMHX of terminal COPD, quadruple bypass., HTN. She had been having chest discomfort and increased work of breathing, increased O2 requirement in the 2 weeks prior to presenting to the emergency department. She usually wears 2 L NC but had increased recently to 4L NC. She also reported cough above baselines. She uses daily albuterol and steroid inhalers. She had been having centered chest discomfort, described as a dull ache, no radiation to extremities or jaw, comes and goes, worse with exertion. She Reported taking given nitroglycerin multiple times a day daily for the two weeks prior to presentation. Denies nausea, vomiting, diarrhea, abdominal pain, light headedness, dizziness, dysuria, hematuria. Upon evaluation in emergency department she had oxygen saturations the mid 90s on 4 L nasal cane oxygen she demonstrated increased work of breathing mild tripoding, auscultation demonstrated diminished breath sounds throughout. She received duo nebs 3, Solu-Medrol with mild improvement of wheezing and tachypnea after treatment. Initial EKG showed sinus tach with some acute ST depression in V4-V6. Blood cultures and sputum culture collected at the time of admission demonstrated no growth. CTA ordered and negative for PE, Bronchial wall thickening and mucus plugging, possibly related to bronchitis. Severe emphysema and scarring in the posterior aspect of the right upper lobe, unchanged. After returning from her CTA she decompensated with increased chest pain hypoxia tachycardia requiring intubation. Tachycardia was addressed with Adenosine 6mg and then 12mg was pushed with brief change and then return to 150s. After intubation, patient was given lopressor 5mg and HR dropped to 100s, blood pressure dropped to 70-80s systolic with a MAP of 65. Patient was given 2L NS bolus and pressures ana to 100s systolic. She was started empirically on levaquin 500mg. patient was transferred to the ICU for continued care. In the ICU she was continued on IV Solu-Medrol, breathing treatments and IV Levaquin. She is continued on IV heparin drip with NSTEMI. Patient demonstrated respiratory improvements and was extubated on 07/18/2017 placed on BiPAP with an FiO2 of 35% and shortly after was reintubated due to further respiratory decompensation. However she continued to demonstrate hypotension which initially was thought to be cardiogenic shock and she underwent echocardiogram demonstrating mild left ventricular diastolic dysfunction with preserved ejection fraction at 60-65%. Sputum culture was collected on 2017 that grew MRSA. Levaquin was discontinued on 07/21 and patient was placed on vancomycin which she received for 2 days, her temperature elevated to 102.4, hypotension and with less sedation had decreased responsiveness. Patient underwent chest x-ray which was started developing left lower lobe consolidation changes concerning for pneumonia and trace bilateral pleural effusions. Head CT demonstrated pansinusitis with air fluid levels in the right maxillary sinus air-fluid levels in the mastoid region concerning for mastoiditis. Vancomycin was discontinued and she was placed on Zyvox and IV Zosyn 07/22/2017. Lactic acid 1.5. 07/23/2017 she demonstrated sharp increase in her WBCs to 16.2, segmented neutrophils at 85.7%, neutrophils at 13.9%, hyperkalemia, slight increase in creatinine and decrease in GFR, increase in FiO2 requirements on mechanical ventilation. CC: Pasquale Garcia MD Past Med Surg Social Fam HX - Past Medical History Medical history: CHF (Diastolic), COPD (Oxygen dependent on 3 L continuously), coronary artery disease, hyperlipidemia, hypertension, myocardial infarction, other (Intubated in the past, depression, chronic respiratory failure) Psychiatric history: anxiety - Past Surgical History Surgical History: appendectomy, coronary bypass (CABG) - Social History Smoking Status: Former smoker Smokeless Tobacco Status: No Alcohol use: none Drug use: none - Family History Mother History Unknown: Yes Living Status: Still Living Father History Unknown: Yes Living Status: Hx Family Cardiac Disorders: Yes (Father of [place]) Infectious Disease-CN:Meds Aspirin Enteric Coated [Aspirin EC] 81 mg PO DAILY #0 12/13/14 [History] Nitroglycerin 0.4 mg SL Q5M PRN #0 12/13/14 [History] Omeprazole [PriLOSEC] 20 mg PO BID #0 12/13/14 [History] Thiamine (B-1) [Vitamin B-1] 100 mg PO DAILY #0 12/13/14 [History] Multivitamin/Iron/Folic Acid [Centrum Complete Multivit Tab] 1 tab PO DAILY [History] Cetirizine HCl [All Day Allergy] 10 mg PO DAILY PRN 09/15/16 [History] Sennosides/Docusate Sodium [Senna-S Tablet] 1 tab PO BID PRN 09/15/16 [History] Simvastatin [Zocor] 10 mg PO HS 09/15/16 [History] Magnesium Oxide [Mgo] 400 mg PO DAILY 09/16/16 [History] Albuterol Sulfate [Albuterol Inhaler] 1 puff IH Q4H PRN #3 inhaler 09/19/16 [Rx] Ferrous Sulfate 325 mg PO TIDWM tablet 09/28/16 [Rx] amLODIPine [Norvasc] 5 mg PO DAILY tablet 09/28/16 [Rx] Budesonide/Formoterol 160/4.5 [Symbicort 160/4.5] 1 puff IH BIDR 02/22/17 [ History] Umeclidinium [place] [Incruse Ellipta] 62.5 mcg IH DAILY 02/22/17 [History] Guaifenesin [Mucus Relief] 400 mg PO BID 03/08/17 [History] Metoprolol [Lopressor] 25 mg PO DAILY 03/08/17 [History] Albuterol Neb [Proventil Neb] 2.5 mg IH [id number] PRN #120 vial 03/11/17 [Rx] Acetaminophen [Non-Aspirin] 1 - 2 tab PO Q4H PRN 07/17/17 [History] Furosemide [Lasix] 20 mg PO DAILY 07/17/17 [History] Melatonin [Melatin] 3 mg PO HS 07/17/17 [History] PARoxetine HCl [Paroxetine HCl] 40 mg PO DAILY 07/17/17 [History] acetaZOLAMIDE [Diamox] 250 mg PO DAILY 07/17/17 [History] 3 Allergy/AdvReac Type Severity Reaction Status Date / Time No Known Allergies Allergy Verified 03/08/17 01:46 ROS unobtainable: due to endotracheal tube, due to mental status Exam - Constitutional Vitals: Temp Pulse Resp BP Pulse Ox 98.8 F 86 15 119/77 98 07/23/17 03:49 07/23/17 08:00 07/23/17 07:51 07/23/17 07:51 07/23/17 07:51 - Head Head exam: Present: atraumatic, normocephalic - Eye Additional comments: Periorbital edema, pupils fixed patient is on sedation - ENT ENT exam: Present: mucous membranes moist - Neck Neck exam: Present: normal inspection - Respiratory Respiratory exam: Present: rhonchi (Diffusely), wheezes - Cardiovascular Cardiovascular exam: Present: RRR, +S1, +S2 - GI/Abdominal GI/Abdominal exam: Present: distended, hypoactive bowel sounds - Extremities Exam Extremities exam: Present: pedal edema Infectious Disease CN: Results - Labs CBC & Chem 7: 07/23/17 03:27 07/23/17 03:27 Cultures: Cultures 07/22/17 20:44 Sputum Culture - Preliminary Sputum 07/19/17 16:12 Sputum Culture - Final Sputum Methicillin Resistant S.aureus 07/17/17 15:27 Sputum Culture - Final Sputum - VTE Documentation of Mechanical Device: Intermittent pneumatic compression device Consult Discharge Plan - Plan Referrals: NONE,PCP [Primary Care Provider] - - Attending Attestation I examined this patient and my medical decision-making was reviewed with the Resident Physician. I agree with the documented findings, disposition and treatment plan as described except to the extent set forth below. This is an addendum to original Report dictated by resident physician. Please refer to residents note for full details. Patient is a 57-year-old woman who has an extensive past medical history including severe COPD who has been on hospice requiring home oxygen on 2-4 L nasal cannula who is a resident of longterm also has coronary artery disease with history of CABG, hypertension, chronic kidney disease who apparently came in to [place] on July 17 for worsening shortness of breath, cough , chest pain and deconditioning. Patient apparently per records described the chest pain as dull and aching nonradiating. There is no mention if the cough was productive. Patient in the emergency department was noted to be tachypneic , febrile with a temperature of 11.4 Fahrenheit, tachycardic. Patient presenting WBC was 8.7 with 83% neutrophils. Other labs revealed normal kidney function, elevated d-dimer and a troponin leak with a troponin of 1.03. A UA was obtained and it was negative for pyuria or signs of infection. Blood cultures were obtained 2 and they revealed no growth. Patient had an EKG which showed ST depression in the lateral leads. Patient also had a CT chest on July 17 which revealed no pneumonia and thickening of the bronchial wall possibly secondary to bronchitis and severe emphysema. I reviewed the CT myself and I do question if there is some interstitial lung issues in the bilateral lungs. I will review again with radiology. Patient initially was started on levofloxacin and she decompensated and was intubated. Patient was extubated a day later after this she did well on the CPAP trial but then decompensated again and required reintubation. Sputum culture was eventually obtained on the patient and it grew MRSA. This was started on vancomycin. Patient continued to be symptomatic and have persistent fever. Her WBC even went up to 16,000 today. Patient had also worsening mentation so a CT head was done on July 22 which revealed mastoiditis and pansinusitis with air fluid levels in the right maxillary sinus. Zosyn was added. Patient continued to have a fever and leukocytosis so patient was switched to Zyvox, vancomycin was stopped and Zosyn was continued. We were asked to evaluate the patient and make further recommendations. On physical exam patient is sedated, intubated and paralyzed. O2 requirements are 40% FiO2 and PEEP of 5. Patient also is on tube feeding at 40 mL per hour. Nursing tells me that in the morning she had no residuals at 1 PM she had 110 mL of residual and the most recent one with no residual. Physical exam is remarkable for very distended with hypoactive bowel sounds in the abdomen. Patient has not had a bowel movement since admission. She also has significant copious mucopurulent secretions from the trach. Patient also has a right femoral line and two power glides. Femoral line is 24 hours old and clinically it does not appear infected. A/P: 1 - septic shock - improved (currently not requiring pressors 2 - Acute respiratory failure secondary to #3 and #4 3 - VAP causitive organism MRSA 4 - Severe COPD/emphysema 5 - abdominal distention (etiology not clear) previous KUB's negative on 07/17; concern for ileus vs intra abdominal infection vs other; 6 - sinusitis/mastoiditis 7 - persistent Fevers - likely secondary to #3 and #6 but need to rule out bacteremia, and intra abdominal process as well 8 - ACS 9 - Encephalopathy (metabolic vs other?) will check RIP, urine legionella and pneumococcal Ag. get blood cultures from peripheral and central lines get peripheral smear check KUB, LFT's and Amylase and lipase d/c zyvox continue zosyn start vancomycin with goal trough around 15 monitor labs and for drug toxicity
[2017-07-23] MEDS: Dexmedetomidine HCl 400 MCG/100 ML MLS IVC SCH (10:15)
[2017-07-23] MEDS: FentaNYL (PF) 1,000 MCG in 0.9 % Sodium Chloride 80 ML IVC SCH ×2 (11:11→17:25)
--- NOTE | 2017-07-23 13:24 | ENT - Consult Note ---
Date of Encounter: 07/23/17 Time of Encounter: 11:30 Assessment and Plan (1) Pansinusitis Current Visit: Yes Status: Acute Review of CT scan reveals findings consistent with chronic mucosal disease scant amount of air fluid levels which should be adequately treated with the antibiotics that she is presently on. No indication for surgical intervention at this time. Qualifiers: Qualified Code(s): J32.4 - Chronic pansinusitis (2) Respiratory failure Current Visit: Yes Status: Acute Qualifiers: Chronicity: acute Respiratory failure complication: hypercapnia Qualified Code(s): J96.02 - Acute respiratory failure with hypercapnia (3) Septic shock due to methicillin resistant Staphylococcus aureus Current Visit: Yes Status: Acute (4) Ventilator-associated bacterial pneumonia Current Visit: Yes Status: Acute Patient is presently ventilator dependent and has been adequately intubated. Hopefully with ongoing medical therapy she will be able to be weaned off the ventilator and extubated. Continuation of the present medical therapy is adequate. No indication for tracheostomy at this time. Surgical intervention in this high risk patient not indicated at this time. Please reconsult if tracheostomy is considered in the future. (5) Chronic mastoiditis of both sides Current Visit: Yes Status: Acute Patient has findings on CT scan consistent with chronic not acute mastoiditis and mild otitis media, bilateral. physical exam not consistent with acute infection, no surgical intervention recommended at this time recommend continuation of antibiotic therapy. History of Present Illness Reason for ENT Consult: airway complication, other (sinusitis, mastoiditis, sepsis,ventilator dependent, MRSA pneumonia) History of present illness: I was consulted on this 57-year-old female by Hospital intensivists and resident for evaluation relative to sinusitis and mastoiditis found on CT scan of head. Has history of presenting on July 17 with respiratory, exacerbation of chronic COPD requiring intubation on the . She was with fever and placed on Levaquin for presumed community acquired pneumonia she was extubated on the and had repeat Strattera failure requiring reintubation on the . Sputum cultures done on the revealed MRSA. Patient had antibiotics changed to vancomycin and Zosyn on 20 July and then changed per infectious disease recommendation to Zyvox and Zosyn she had spike in fever yesterday with elevated white count to point to repeat sputum cultures done on the are still pending. G changes evaluated by cardiology as well as SVT which are thought to be due to demand ischemia she is on low-dose heparin and a CT scan of head done yesterday the is reviewed. Results as follows by personal review: I lateral mild to moderate mucosal thickening of sphenoid sinuses ethmoid sinuses and small air-fluid level in the left sphenoid and right maxillary sinus normal appearing frontal sinuses. The mastoids show what appears to be chronic inflammatory changes in the left mastoid and small amount of fluid within the middle ear space bilateral no coalescent mastoiditis is seen no bony destruction or erosion is seen, cavernous sinuses look intact without pathology. Past Med Surg Social Fam HX - Past Medical History Medical history: CHF (Diastolic), COPD (Oxygen dependent on 3 L continuously), coronary artery disease, hyperlipidemia, hypertension, myocardial infarction, other (Intubated in the past, depression, chronic respiratory failure) Psychiatric history: anxiety - Past Surgical History Surgical History: appendectomy, coronary bypass (CABG) - Social History Smoking Status: Former smoker Smokeless Tobacco Status: No Alcohol use: none Drug use: none - Family History Mother History Unknown: Yes Living Status: Still Living Father History Unknown: Yes Living Status: Hx Family Cardiac Disorders: Yes (Father of [place]) Medications and Allergies Aspirin Enteric Coated [Aspirin EC] 81 mg PO DAILY #0 12/13/14 [History] Nitroglycerin 0.4 mg SL Q5M PRN #0 12/13/14 [History] Omeprazole [PriLOSEC] 20 mg PO BID #0 12/13/14 [History] Thiamine (B-1) [Vitamin B-1] 100 mg PO DAILY #0 12/13/14 [History] Multivitamin/Iron/Folic Acid [Centrum Complete Multivit Tab] 1 tab PO DAILY [History] Cetirizine HCl [All Day Allergy] 10 mg PO DAILY PRN 09/15/16 [History] Sennosides/Docusate Sodium [Senna-S Tablet] 1 tab PO BID PRN 09/15/16 [History] Simvastatin [Zocor] 10 mg PO HS 09/15/16 [History] Magnesium Oxide [Mgo] 400 mg PO DAILY 09/16/16 [History] Albuterol Sulfate [Albuterol Inhaler] 1 puff IH Q4H PRN #3 inhaler 09/19/16 [Rx] Ferrous Sulfate 325 mg PO TIDWM tablet 09/28/16 [Rx] amLODIPine [Norvasc] 5 mg PO DAILY tablet 09/28/16 [Rx] Budesonide/Formoterol 160/4.5 [Symbicort 160/4.5] 1 puff IH BIDR 02/22/17 [ History] Umeclidinium [place] [Incruse Ellipta] 62.5 mcg IH DAILY 02/22/17 [History] Guaifenesin [Mucus Relief] 400 mg PO BID 03/08/17 [History] Metoprolol [Lopressor] 25 mg PO DAILY 03/08/17 [History] Albuterol Neb [Proventil Neb] 2.5 mg IH [id number] PRN #120 vial 03/11/17 [Rx] Acetaminophen [Non-Aspirin] 1 - 2 tab PO Q4H PRN 07/17/17 [History] Furosemide [Lasix] 20 mg PO DAILY 07/17/17 [History] Melatonin [Melatin] 3 mg PO HS 07/17/17 [History] PARoxetine HCl [Paroxetine HCl] 40 mg PO DAILY 07/17/17 [History] acetaZOLAMIDE [Diamox] 250 mg PO DAILY 07/17/17 [History] 3 Allergy/AdvReac Type Severity Reaction Status Date / Time No Known Allergies Allergy Verified 03/08/17 01:46 ENT - ROS ROS unobtainable: due to endotracheal tube - EENT Nose, mouth and throat: as per HPI ENT Exam Initial Vital Signs Temp Pulse Resp BP Pulse Ox 101.4 F H 124 28 145/80 98 07/17/17 03:21 07/17/17 03:21 07/17/17 03:21 07/17/17 03:21 07/17/17 03:21 - General physical appearance other (Patient is intubated and on ventilator and is sedated and not responsive. ) - Eyes other (Patient is intubated and sedated and paralyzed. There is no periorbital erythema, no proptosis, no conjunctival erythema purulent drainage) - ENT normal nares, normal mucosa, deviated nasal septum, Other (Examination of ears do show normal pinna without mastoid erythema no deformity of the pinna and canals are normal TMs are sclerotic with scant amount of serous anjana-colored middle ear effusion or erythema or purulence seen. Nasal cavity she has large anterior septal perforation old mucus is clear to white, mucosa is pale and congested no purulence or mass or polyps seen. Oral cavity unable to visualize secondary to endotracheal tube and OG tube) - Neck no masses, trachea midline, no lymphadectomy, other (Patient is presently intubated and non-mobile / sedated) Exam Initial Vital Signs Temp Pulse Resp BP Pulse Ox 101.4 F H 124 28 145/80 98 07/17/17 03:21 07/17/17 03:21 07/17/17 03:21 07/17/17 03:21 07/17/17 03:21 Results - Labs 07/23/17 03:27 07/23/17 03:27 Abnormal lab results WBC 16.2 K/mcL (4.3-11.1) H D 07/23/17 03:27 RBC 3.51 M/mcL (3.82-4.97) L 07/23/17 03:27 Hgb 9.6 g/dL (11.5-15.4) L 07/23/17 03:27 Hct 31.5 % (35.3-44.9) L 07/23/17 03:27 MCH 27.4 pg (28.0-33.3) L 07/23/17 03:27 MCHC 30.5 g/dL (31.6-35.5) L 07/23/17 03:27 RDW 14.9 % (11.5-14.5) H 07/23/17 03:27 MPV 13.0 fL (9.4-12.4) H 07/23/17 03:27 Immature Gran % 4.9 % (0-4) H 07/23/17 03:27 Neutrophils # 13.9 K/mcL (1.6-8.9) H 07/23/17 03:27 Nucleated RBCs/100 WBC 0.6 /100 WBC (0) H 07/23/17 03:27 Immature Plt Fraction 15.4 % (1.1-6.1) H 07/21/17 03:40 Hypochromasia Present (Not Present) A 07/23/17 03:27 APTT 66.6 Seconds (26.0-36.0) H 07/20/17 03:41 D-Dimer 565 ng/mLFEU (0-500) H 07/17/17 03:46 Heparin Anti-Xa, Unfract 0.99 IU/mL (0.30-0.70) H 07/18/17 06:00 ABG pCO2 54 mmHg (35-45) H 07/23/17 04:59 ABG pO2 109 mmHg (85-104) H 07/23/17 04:59 ABG HCO3 28 mEq/L (21-27) H 07/23/17 04:59 ABG Total CO2 29 mEq/L (20-26) H 07/23/17 04:59 VBG pH 7.29 pH Units (7.32-7.42) L 07/18/17 06:29 VBG pCO2 54 mmHg (41-51) H 07/18/17 06:29 VBG pO2 164 mmHg (25-50) H 07/18/17 06:29 Potassium 5.2 mEq/L (3.5-5.1) H 07/23/17 03:27 BUN 40 mg/dL (6-20) H 07/23/17 03:27 Est GFR (Non-Af Amer) 49 (> 60) L 07/23/17 03:27 BUN/Creatinine Ratio 35 (6-26) H 07/23/17 03:27 Glucose 134 mg/dL (70-105) H 07/23/17 03:27 POC Glucose 200 (58-89) H 07/23/17 11:17 Calcium 8.2 mg/dL (8.6-10.3) L 07/23/17 03:27 Venous Ioniz Calcium 1.13 mmol/L (1.15-1.35) L 07/23/17 03:37 Phosphorus 2.6 mg/dL (2.7-4.5) L 07/23/17 03:27 Troponin I 0.69 ng/mL (< 0.04) H* 07/18/17 04:00 B-Natriuretic Peptide 207 pg/mL (Less than 100) H 07/17/17 15:27 Ur Specific [place] 1.029 (1.010-1.025) H 07/17/17 05:45 Diabetes panel 07/23/17 Range/Units 03:27 Sodium 139 (136-145) mEq/L Potassium 5.2 H (3.5-5.1) mEq/L Chloride 107 (98-107) mEq/L Carbon Dioxide 29 (23-29) mEq/L BUN 40 H (6-20) mg/dL Creatinine 1.13 (0.60-1.20) mg/dL Glucose 134 H (70-105) mg/dL Calcium 8.2 L (8.6-10.3) mg/dL Calcium panel 07/23/17 07/23/17 Range/Units 03:27 03:27 Calcium 8.2 L (8.6-10.3) mg/dL Phosphorus 2.6 L (2.7-4.5) mg/dL Pituitary panel 07/23/17 Range/Units 03:27 Sodium 139 (136-145) mEq/L Potassium 5.2 H (3.5-5.1) mEq/L Chloride 107 (98-107) mEq/L Carbon Dioxide 29 (23-29) mEq/L BUN 40 H (6-20) mg/dL Creatinine 1.13 (0.60-1.20) mg/dL Glucose 134 H (70-105) mg/dL Calcium 8.2 L (8.6-10.3) mg/dL Adrenal panel 07/23/17 Range/Units 03:27 Sodium 139 (136-145) mEq/L Potassium 5.2 H (3.5-5.1) mEq/L Chloride 107 (98-107) mEq/L Carbon Dioxide 29 (23-29) mEq/L BUN 40 H (6-20) mg/dL Creatinine 1.13 (0.60-1.20) mg/dL Glucose 134 H (70-105) mg/dL Calcium 8.2 L (8.6-10.3) mg/dL All other labs normal. Consult Discharge Plan - Plan Referrals: NONE,PCP [Primary Care Provider] -
[2017-07-23] MEDS: Nystatin SUSP 5 ML UD.LIQ PO SCH ×3 (14:16→20:00)
[2017-07-23 15:07] LABS: Albumin 2.4 g/dL (3.5-5.7); Albumin/Globulin Ratio 0.8 (1.1-2.2); Bilirubin,Direct 0.2 mg/dL (0.0-0.2); Bilirubin,Indirect 0.1 mg/dL (0.0-1.2); Bilirubin,Total 0.3 mg/dL (0.3-1.0); Total Protein 5.4 g/dL (6.4-8.9)
[2017-07-23 16:00] LABS: Adenovirus Not Detected (Not Detect); Bordetella Pertussis Not Detected (Not Detect); Chlamydophila pneumoniae Not Detected (Not Detect); Coronavirus 229E Not Detected (Not Detect); Coronavirus HKU1 Not Detected (Not Detect); Coronavirus NL63 Not Detected (Not Detect); Coronavirus OC43 Not Detected (Not Detect); Human Metapneumovirus Not Detected (Not Detect); Human Rhinovirus/Enterovirus Not Detected (Not Detect); Influenza A Subtype 2009 H1 Not Detected (Not Detect); Influenza A Untypeable Not Detected (Not Detect); Influenza B ***DETECTED*** (Not Detect); Mycoplasma pneumoniae Not Detected (Not Detect); Parainfluenza Virus 1 Not Detected (Not Detect); Parainfluenza Virus 2 Not Detected (Not Detect); Parainfluenza Virus 3 Not Detected (Not Detect); Parainfluenza Virus 4 Not Detected (Not Detect); Respiratory Syncytial Virus Not Detected (Not Detect)
[2017-07-23 16:08] LABS: Acinetobacter baumannii by PCR Not Detected (Not Detect); Candida albicans by PCR Not Detected (Not Detect); Enterococcus by PCR Not Detected (Not Detect); Escherichia coli by PCR Not Detected (Not Detect); Klebsiella oxytoca by PCR Not Detected (Not Detect); Klebsiella pneumoniae by PCR Not Detected (Not Detect); Pseudomonas aeruginosa by PCR Not Detected (Not Detect); Serratia marcescens by PCR Not Detected (Not Detect); Streptococcus agalactiae(B)PCR Not Detected (Not Detect); Streptococcus by PCR Not Detected (Not Detect); Streptococcus pneumoniae PCR Not Detected (Not Detect); Streptococcus pyogenes (A) PCR Not Detected (Not Detect)
[2017-07-23 16:09] LABS: Candida glabrata by PCR Not Detected (Not Detect); Candida krusei by PCR Not Detected (Not Detect); Candida parapsilosis by PCR Not Detected (Not Detect); Candida tropicalis by PCR Not Detected (Not Detect); Staphylococcus aureus by PCR ***DETECTED*** (Not Detect); mecA Methicillin-Resist Gene ***DETECTED*** (Not Detect)
[2017-07-24] MEDS: FentaNYL (PF) 1,000 MCG in 0.9 % Sodium Chloride 80 ML IVC SCH ×4 (00:06→23:51)
[2017-07-24] MEDS: Insulin LISPRO 300 UNITS/3 ML VIAL SQ SCH ×7 (00:13→23:38)
[2017-07-24] MEDS: Dexmedetomidine HCl 400 MCG/100 ML MLS IVC SCH ×2 (02:23→17:52)
[2017-07-24] MEDS: Ipratropium/Albuterol Neb 3 ML IH SCH ×6 (03:37→23:35)
[2017-07-24 03:52] LABS: Hematocrit 28.9 % (35.3-44.9); Hemoglobin 8.8 g/dL (11.5-15.4); Mean Corpuscular HGB Conc 30.4 g/dL (31.6-35.5); Mean Corpuscular Volume 88.7 fL (83.0-100.0); Mean Platelet Volume 12.9 fL (9.4-12.4); Nucleated Red Blood Cells 0.3 /100 WBC (0); Platelet Count 123 K/mcL (140-400); Red Blood Count 3.26 M/mcL (3.82-4.97); Red Cell Distribution Width 14.9 % (11.5-14.5)
[2017-07-24 03:53] LABS: VBG Ionized Calcium 1.06 mmol/L (1.15-1.35)
[2017-07-24 04:12] LABS: BUN/Creatinine Ratio 41 (6-26); Blood Urea Nitrogen 31 mg/dL (6-20); Calcium 7.7 mg/dL (8.6-10.3); Carbon Dioxide 29 mEq/L (23-29); Chloride 101 mEq/L (98-107); Glucose 156 mg/dL (70-105); Osmolality,Calculated 290 (280-300); Potassium 4.3 mEq/L (3.5-5.1); Sodium 135 mEq/L (136-145); eGFR For African Americans > 60 (> 60); eGFR For Non-African Americans > 60 (> 60)
[2017-07-24 04:13] LABS: Magnesium 1.7 mg/dL (1.6-2.6); Phosphorous 2.8 mg/dL (2.7-4.5)
[2017-07-24 04:23] LABS: Lymphocytes # 1.2 K/mcL (0.6-4.6); Monocytes # 2.1 K/mcL (0.0-1.3); Neutrophils # 11.8 K/mcL (1.6-8.9); Platelet Estimate Slight Decrease (Normal)
[2017-07-24] MEDS: Piperacillin/Tazobactam 3.375 GM in 0.9 % Sodium Chloride Mini Bag 100 ML IVPB SCH ×3 (04:36→20:20)
[2017-07-24] MEDS: Lacri-Lube 3.5 GM TUBE BOTH EYES SCH ×6 (04:37→23:38)
[2017-07-24 05:55] LABS: ABG Base Excess 4 mEq/L (-2 to 3); ABG HCO3 31 mEq/L (21-27); ABG Oxygen Saturation 88 % (95-98); ABG PCO2 59 mmHg (35-45); ABG PH 7.32 pH Units (7.32-7.45); ABG PO2 61 mmHg (85-104); ABG TCO2 32 mEq/L (20-26); Blood Gas Modality VC; Blood Gas PEEP 5 cm H2O; Blood Gas Respiration Rate 14; Blood Gas VT 440 cc
[2017-07-24] MEDS: *HR* Heparin 5,000 UNIT/ML VIAL SQ SCH ×2 (06:46→18:00)
[2017-07-24] MEDS: Budesonide/Formoterol 160/4.5 MDI IH SCH ×2 (07:56→19:44)
--- NOTE | 2017-07-24 08:27 | Pulmonology Progress Note ---
<Herlinda Yee - Last Filed: 07/24/17 11:18> Date of Encounter: 07/24/17 Time of Encounter: 08:00 Assessment and Plan (1) Acute respiratory failure with hypoxia Current Visit: No Status: Acute Acute on chronic respiratory failure with hypoxemia secondary to COPD and bacteremia with MRSA pneumonia, influenza B, chronic mastoiditis, and pansinusitis. Patient began satting in the 80s while in SVT. Patient intubated on 07/17/17 and sedated. CXR negative. CTA negative for PE but did show bronchial wall thickening and mucous plugging with severe emphysematous changes. Troponin negative x1 then increased to a max of 1.06 but now trending down to 0.69. Patient extubated 07/18 and was on BIPAP FiO2 35%. Patient reintubated later that morning as patient went into SVT and worsening respiratory failure. See event note for details. 07/21: patient was having hypotension and with less sedation had decreased responsiveness. Chest x-ray, head CT, lactic acid and blood cultures ordered. Started Levophed. Began Vecuronium for lung rest. Concern for her condition may not improve. She is still full code and may need tracheostomy. Palliative care on board and discussed with family who said that she did not want a trach. 07/22: Head CT showed pansinusitis and mastoiditis. 07/23: Overnight, febrile max 102.4F. Increase WBC = 16.2 (9.2) and found to be in septic shock requiring Levophed. Patient is found to be positive for MRSA and influenza B. Due to CT abdomen and pelvis showing colitis a GI panel was ordered. Physical exam showed worsening edema diffusely. plan: - Lasix 40mg IVP once, will reassess after, if vitals stable may repeat in the afternoon - paralytic: Vecuronium stopped today. - started Tamiflu ( day 15) - Solumedrol 40mg IV Q8hrs - Duonebs scheduled Q4hrs, prn Q2hrs - Symbicort - consult to ID recommend switching form Zyvox to Vanco and repeat blood cultures - antibiotics: Initiated Flagyl (day 1), continued Vancomycin ( day 2) and Zosyn (day 3). s/p Levoquin (5 days), Vanco (2 days) Zyvox ( 2 days) - sedation: Precedex, Fentanyl, Versed available, currently only on Fentanyl - repeat BC 07/24/17 drawn, BC 07/22/17 gram + cocci , BC 07/17/17 prelim no growth - sputum culture 07/19 growing MRSA, 07/17 normal resp shefali. Sputum culture 07/19 few gram + cocci, + rods - restarted tube feeds 07/21/17 - lines: powerglider x2, central R fem line (2) Acute exacerbation of chronic obstructive airways disease Current Visit: No Status: Acute Hx of COPD with home meds of Incruse Ellipta, Symbicort, albuterol. Patient initially did have fever of 101.4F upon arrival but temp wnl since. See plan above. (3) Elevated troponin Current Visit: Yes Status: Acute Patient's initial troponin negative with an initial EKG showing ST depression in V3-V6. Patient went into SVT resolved with adenosine and lopressor. Patient' s repeat Troponin = 0.56. Repeat EKG showed inversion of T-waves in V2-V5. Cardiology was consulted, echo ordered, and low dose heparin drip started. Last nuclear stress test 2016, showed EF 70%, no ischemia. Echo 07/17/17: LVEF 60-65%, mild LV diastolic dysfunction, atypical septal motion consistent with post-op status. No valvular dysfunction. Plan: - Heparin drip stopped - cardiology consulted and believe due to demand ischemia no further cardiac work-up needed. signed off. (4) Hypotension Current Visit: Yes Status: Resolved Pt has powerglider and femoral central line. Currently not on Levophed. Resolved. Qualifiers: Hypotension type: unspecified hypotension type Qualified Code(s): I95.9 - Hypotension, unspecified (5) Diastolic heart failure Current Visit: No Status: Acute Hx of diastolic CHF. Nuclear stress 09/23/16 showed EF>70%, negative for ischemia. Echo is pending. BNP= 207. Patient is on Lasix at home but due to low normal BP and no rales will hold Lasix for now. Echo showed preserve EF mild LV diastolic dysfunction. On physical exam today, patient has worsening fluid overload. Lasix 40 mg IVP once ordered. Qualifiers: Heart failure chronicity: acute on chronic Qualified Code(s): I50.33 - Acute on chronic diastolic (congestive) heart failure (6) Bacteremia due to Gram-positive bacteria Current Visit: Yes Status: Acute See plan above. Will continue vancomycin and Zosyn. ID following. (7) Influenza B Current Visit: Yes Status: Acute Initiated Tamiflu. (8) Colitis Current Visit: Yes Status: Acute CT of abdomen and pelvis showed colitis of the descending colon. Patient did have a copious liquid bowel movement. Flagyl initiated. GI panel and C. difficile PCR was obtained. Awaiting results. Plan: - started flagyl - GI panel pending - C. diff PCR pending Subjective Principal diagnosis: acute respiratory failure with hypoxia Interval history: Ms. Scott is a 57-year-old female past medical history of COPD on 2 L, CAD status post CABG, and diastolic congestive heart failure found have acute respiratory failure secondary to COPD. 07/18, patient was extubated and is on BiPAP FiO2 35% and satting in the 90s. After extubation, patient had moderate respiratory distress with tachycardia and tachypnea on BiPAP FiO2 35%. Patient proceeded to go into SVT and was given Cardizem 5 mg. Patient had short run of V. tach and was given another 5 mg of Cardizem IVP. Patient's heart rate began to respond but patient continued increase work of breathing and decision was made to reintubate. Patient's HR returned to normal range. 07/23, patient was febrile with a maximum temperature 102.4F, patient's WBCs increased from 9.2 to 16.2 and was found to be in septic shock. Patient required Levophed. No acute events overnight. Patient was on a paralytic this morning which was stopped today. Objective PUL Vital signs: Last Vital Signs Temp 97.5 F L 07/24/17 04:00 Pulse 84 07/24/17 06:00 Resp 14 07/24/17 07:56 BP 129/81 07/24/17 07:56 Pulse Ox 97 07/24/17 07:56 Constitutional: intubated, resting Head: Normocephalic, atraumatic Heart: regular rhythm and rate, no murmurs Lungs: + wheezing , mech ventilator at FiO2 40% Abdomen: Soft, worsening distension, nontender, no guarding or rigidity. Extremities: worsening edema lower extremities, upper extremities and face, No clubbing, radial pulse +2/4, capillary refill <2sec. Skin: Skin warm and dry, no jaundice Neurologic: patient is on Vecoronium therefore is not responding to painful stimuli line: powerglider, central femoral line Ventilator Settings Ventilator Settings: Ventilator Settings, Last 8 Hours Ventilator Mode VC+ Ventilator Mode VC+ Ventilator Mode VC+ Ventilator Mode VC+ Ventilator Mode VC+ Ventilator Mode VC+ Ventilator Mode VC+ Ventilator Mode VC+ Ventilator Mode VC+ Ventilator Mode VC+ Ventilator Mode VC+ Ventilator Tidal Volume 440 Setting Ventilator Tidal Volume 440 Setting Ventilator Tidal Volume 440 Setting Ventilator Tidal Volume 440 Setting Ventilator Tidal Volume 440 Setting Ventilator Tidal Volume 440 Setting Ventilator Tidal Volume 440 Setting Ventilator Tidal Volume 440 Setting Ventilator Tidal Volume 440 Setting Ventilator Tidal Volume 440 Setting Ventilator Tidal Volume 440 Setting Ventilator Respiratory Rate 14 Setting Ventilator Respiratory Rate 14 Setting Ventilator Respiratory Rate 14 Setting Ventilator Respiratory Rate 14 Setting Ventilator Respiratory Rate 14 Setting Ventilator Respiratory Rate 14 Setting Ventilator Respiratory Rate 14 Setting Ventilator Respiratory Rate 14 Setting Ventilator Respiratory Rate 14 Setting Ventilator Respiratory Rate 14 Setting Ventilator Respiratory Rate 14 Setting Actual Respiratory Rate 14 Actual Respiratory Rate 14 Actual Respiratory Rate 14 Actual Respiratory Rate 14 Actual Respiratory Rate 14 Actual Respiratory Rate 14 Actual Respiratory Rate 14 Actual Respiratory Rate 14 Actual Respiratory Rate 14 Actual Respiratory Rate 14 Positive End Expiratory 5 Pressure Positive End Expiratory 5 Pressure Positive End Expiratory 5 Pressure Positive End Expiratory 5 Pressure Positive End Expiratory 5 Pressure Positive End Expiratory 5 Pressure Positive End Expiratory 5 Pressure Positive End Expiratory 5 Pressure Positive End Expiratory 5 Pressure Positive End Expiratory 5 Pressure Positive End Expiratory 5 Pressure Peak Inspiratory Airway 39 Pressure Peak Inspiratory Airway 38 Pressure Peak Inspiratory Airway 37 Pressure Peak Inspiratory Airway 38 Pressure Peak Inspiratory Airway 38 Pressure Peak Inspiratory Airway 41 Pressure Peak Inspiratory Airway 39 Pressure Peak Inspiratory Airway 38 Pressure Results - Laboratory Findings CBC and BMP: 07/24/17 03:37 07/24/17 03:37 ABG ABG pH 7.32 pH Units (7.32-7.45) 07/24/17 05:52 ABG pCO2 59 mmHg (35-45) H 07/24/17 05:52 ABG pO2 61 mmHg (85-104) L 07/24/17 05:52 ABG O2 Saturation 88 % (95-98) L 07/24/17 05:52 PT/INR, D-dimer PT 11.9 Seconds (9.4-12.1) 07/17/17 03:46 D-Dimer 565 ng/mLFEU (0-500) H 07/17/17 03:46 Abnormal lab findings: Abnormal lab results WBC 15.1 K/mcL (4.3-11.1) H 07/24/17 03:37 RBC 3.26 M/mcL (3.82-4.97) L 07/24/17 03:37 Hgb 8.8 g/dL (11.5-15.4) L 07/24/17 03:37 Hct 28.9 % (35.3-44.9) L 07/24/17 03:37 MCH 27.0 pg (28.0-33.3) L 07/24/17 03:37 MCHC 30.4 g/dL (31.6-35.5) L 07/24/17 03:37 RDW 14.9 % (11.5-14.5) H 07/24/17 03:37 Plt Count 123 K/mcL (140-400) L 07/24/17 03:37 MPV 12.9 fL (9.4-12.4) H 07/24/17 03:37 Immature Gran % 4.9 % (0-4) H 07/23/17 03:27 Neutrophils # 11.8 K/mcL (1.6-8.9) H 07/24/17 03:37 Monocytes # 2.1 K/mcL (0.0-1.3) H 07/24/17 03:37 Nucleated RBCs/100 WBC 0.3 /100 WBC (0) H 07/24/17 03:37 Platelet Estimate Slight Decrease (Normal) L 07/24/17 03:37 Immature Plt Fraction 15.4 % (1.1-6.1) H 07/21/17 03:40 Hypochromasia Present (Not Present) A 07/23/17 03:27 APTT 66.6 Seconds (26.0-36.0) H 07/20/17 03:41 D-Dimer 565 ng/mLFEU (0-500) H 07/17/17 03:46 Heparin Anti-Xa, Unfract 0.99 IU/mL (0.30-0.70) H 07/18/17 06:00 ABG pCO2 59 mmHg (35-45) H 07/24/17 05:52 ABG pO2 61 mmHg (85-104) L 07/24/17 05:52 ABG HCO3 31 mEq/L (21-27) H 07/24/17 05:52 ABG Total CO2 32 mEq/L (20-26) H 07/24/17 05:52 ABG O2 Saturation 88 % (95-98) L 07/24/17 05:52 ABG Base Excess 4 mEq/L (-2 to 3) H 07/24/17 05:52 VBG pH 7.29 pH Units (7.32-7.42) L 07/18/17 06:29 VBG pCO2 54 mmHg (41-51) H 07/18/17 06:29 VBG pO2 164 mmHg (25-50) H 07/18/17 06:29 Sodium 135 mEq/L (136-145) L 07/24/17 03:37 BUN 31 mg/dL (6-20) H 07/24/17 03:37 BUN/Creatinine Ratio 41 (6-26) H 07/24/17 03:37 Glucose 156 mg/dL (70-105) H 07/24/17 03:37 POC Glucose 183 (58-89) H 07/24/17 08:07 Calcium 7.7 mg/dL (8.6-10.3) L 07/24/17 03:37 Venous Ioniz Calcium 1.06 mmol/L (1.15-1.35) L 07/24/17 03:49 AST 161 Units/L (13-39) H 07/23/17 14:30 ALT 332 Units/L (7-52) H 07/23/17 14:30 Troponin I 0.69 ng/mL (< 0.04) H* 07/18/17 04:00 B-Natriuretic Peptide 207 pg/mL (Less than 100) H 07/17/17 15:27 Serum Total Protein 5.4 g/dL (6.4-8.9) L 07/23/17 14:30 Albumin 2.4 g/dL (3.5-5.7) L 07/23/17 14:30 Albumin/Globulin Ratio 0.8 (1.1-2.2) L 07/23/17 14:30 Ur Specific Pillager 1.029 (1.010-1.025) H 07/17/17 05:45 Influenza Type B (PCR) DETECTED (Not Detect) A 07/23/17 14:30 Staphylococcus sp PCR DETECTED (Not Detect) A 07/22/17 11:05 Staph aureus (PCR) DETECTED (Not Detect) A 07/22/17 11:05 mecA-Methicil Res Gene DETECTED (Not Detect) A 07/22/17 11:05 - Microbiology Findings Microbiology Findings: Microbiology, Last 48 Hours 07/22/17 11:00 Blood Culture - Preliminary Peripheral Venipuncture No growth. 07/22/17 20:44 Sputum Culture - Preliminary Sputum Staphylococcus aureus 07/22/17 11:05 Blood Culture - Preliminary Peripheral Venipuncture Gram Positive Cocci 07/23/17 14:30 Legionella Antigen - Final Urine,Catheterized Streptococcus pneumoniae Antigen (M - Final 07/19/17 16:12 Sputum Culture - Final Sputum Methicillin Resistant S.aureus - Clinical Findings Intake & Output: Intake & Output 07/23/17 07/24/17 07/24/17 23:59 07:59 15:59 Intake Total 678 / 678 1005 / 1005 Output Total 200 / 200 600 / 600 Balance 478 / 478 405 / 405 - VTE Documentation of Mechanical Device: Intermittent pneumatic compression device Consult Discharge Plan - Plan Referrals: NONE,PCP [Primary Care Provider] - <Golden Solo W - Last Filed: 07/24/17 13:31> Date of Encounter: 07/24/17 Objective PUL Vital signs: Last Vital Signs Temp 97.7 F 07/24/17 08:00 Pulse 84 07/24/17 06:00 Resp 14 07/24/17 07:56 BP 129/81 07/24/17 07:56 Pulse Ox 97 07/24/17 07:56 Ventilator Settings Ventilator Settings: Ventilator Settings, Last 8 Hours Ventilator Mode VC+ Ventilator Mode VC+ Ventilator Mode VC+ Ventilator Mode VC+ Ventilator Mode VC+ Ventilator Mode VC+ Ventilator Mode VC+ Ventilator Mode VC+ Ventilator Mode VC+ Ventilator Tidal Volume 440 Setting Ventilator Tidal Volume 440 Setting Ventilator Tidal Volume 440 Setting Ventilator Tidal Volume 440 Setting Ventilator Tidal Volume 440 Setting Ventilator Tidal Volume 440 Setting Ventilator Tidal Volume 440 Setting Ventilator Tidal Volume 440 Setting Ventilator Tidal Volume 440 Setting Ventilator Respiratory Rate 14 Setting Ventilator Respiratory Rate 14 Setting Ventilator Respiratory Rate 14 Setting Ventilator Respiratory Rate 14 Setting Ventilator Respiratory Rate 14 Setting Ventilator Respiratory Rate 14 Setting Ventilator Respiratory Rate 14 Setting Ventilator Respiratory Rate 14 Setting Ventilator Respiratory Rate 14 Setting Actual Respiratory Rate 14 Actual Respiratory Rate 14 Actual Respiratory Rate 14 Actual Respiratory Rate 14 Actual Respiratory Rate 14 Actual Respiratory Rate 14 Actual Respiratory Rate 14 Actual Respiratory Rate 14 Positive End Expiratory 5 Pressure Positive End Expiratory 5 Pressure Positive End Expiratory 5 Pressure Positive End Expiratory 5 Pressure Positive End Expiratory 5 Pressure Positive End Expiratory 5 Pressure Positive End Expiratory 5 Pressure Positive End Expiratory 5 Pressure Positive End Expiratory 5 Pressure Peak Inspiratory Airway 39 Pressure Peak Inspiratory Airway 38 Pressure Peak Inspiratory Airway 37 Pressure Peak Inspiratory Airway 38 Pressure Peak Inspiratory Airway 38 Pressure Peak Inspiratory Airway 41 Pressure Results - Laboratory Findings CBC and BMP: 07/24/17 03:37 07/24/17 03:37 ABG ABG pH 7.32 pH Units (7.32-7.45) 07/24/17 05:52 ABG pCO2 59 mmHg (35-45) H 07/24/17 05:52 ABG pO2 61 mmHg (85-104) L 07/24/17 05:52 ABG O2 Saturation 88 % (95-98) L 07/24/17 05:52 PT/INR, D-dimer PT 11.9 Seconds (9.4-12.1) 07/17/17 03:46 D-Dimer 565 ng/mLFEU (0-500) H 07/17/17 03:46 Abnormal lab findings: Abnormal lab results WBC 15.1 K/mcL (4.3-11.1) H 07/24/17 03:37 RBC 3.26 M/mcL (3.82-4.97) L 07/24/17 03:37 Hgb 8.8 g/dL (11.5-15.4) L 07/24/17 03:37 Hct 28.9 % (35.3-44.9) L 07/24/17 03:37 MCH 27.0 pg (28.0-33.3) L 07/24/17 03:37 MCHC 30.4 g/dL (31.6-35.5) L 07/24/17 03:37 RDW 14.9 % (11.5-14.5) H 07/24/17 03:37 Plt Count 123 K/mcL (140-400) L 07/24/17 03:37 MPV 12.9 fL (9.4-12.4) H 07/24/17 03:37 Immature Gran % 4.9 % (0-4) H 07/23/17 03:27 Neutrophils # 11.8 K/mcL (1.6-8.9) H 07/24/17 03:37 Monocytes # 2.1 K/mcL (0.0-1.3) H 07/24/17 03:37 Nucleated RBCs/100 WBC 0.3 /100 WBC (0) H 07/24/17 03:37 Platelet Estimate Slight Decrease (Normal) L 07/24/17 03:37 Immature Plt Fraction 15.4 % (1.1-6.1) H 07/21/17 03:40 Hypochromasia Present (Not Present) A 07/23/17 03:27 APTT 66.6 Seconds (26.0-36.0) H 07/20/17 03:41 D-Dimer 565 ng/mLFEU (0-500) H 07/17/17 03:46 Heparin Anti-Xa, Unfract 0.99 IU/mL (0.30-0.70) H 07/18/17 06:00 ABG pCO2 59 mmHg (35-45) H 07/24/17 05:52 ABG pO2 61 mmHg (85-104) L 07/24/17 05:52 ABG HCO3 31 mEq/L (21-27) H 07/24/17 05:52 ABG Total CO2 32 mEq/L (20-26) H 07/24/17 05:52 ABG O2 Saturation 88 % (95-98) L 07/24/17 05:52 ABG Base Excess 4 mEq/L (-2 to 3) H 07/24/17 05:52 VBG pH 7.30 pH Units (7.32-7.42) L 07/24/17 08:37 VBG pCO2 61 mmHg (41-51) H 07/24/17 08:37 VBG pO2 132 mmHg (25-50) H 07/24/17 08:37 VBG HCO3 30 mEq/L (21-27) H 07/24/17 08:37 Sodium 135 mEq/L (136-145) L 07/24/17 03:37 BUN 31 mg/dL (6-20) H 07/24/17 03:37 BUN/Creatinine Ratio 41 (6-26) H 07/24/17 03:37 Glucose 156 mg/dL (70-105) H 07/24/17 03:37 POC Glucose 183 (58-89) H 07/24/17 08:07 Calcium 7.7 mg/dL (8.6-10.3) L 07/24/17 03:37 Venous Ioniz Calcium 1.05 mmol/L (1.15-1.35) L 07/24/17 08:37 AST 161 Units/L (13-39) H 07/23/17 14:30 ALT 332 Units/L (7-52) H 07/23/17 14:30 Troponin I 0.69 ng/mL (< 0.04) H* 07/18/17 04:00 B-Natriuretic Peptide 207 pg/mL (Less than 100) H 07/17/17 15:27 Serum Total Protein 5.4 g/dL (6.4-8.9) L 07/23/17 14:30 Albumin 2.4 g/dL (3.5-5.7) L 07/23/17 14:30 Albumin/Globulin Ratio 0.8 (1.1-2.2) L 07/23/17 14:30 Ur Specific Pillager 1.029 (1.010-1.025) H 07/17/17 05:45 Influenza Type B (PCR) DETECTED (Not Detect) A 07/23/17 14:30 Staphylococcus sp PCR DETECTED (Not Detect) A 07/22/17 11:05 Staph aureus (PCR) DETECTED (Not Detect) A 07/22/17 11:05 mecA-Methicil Res Gene DETECTED (Not Detect) A 07/22/17 11:05 - Microbiology Findings Microbiology Findings: Microbiology, Last 48 Hours 07/22/17 11:00 Blood Culture - Preliminary Peripheral Venipuncture No growth. 07/22/17 20:44 Sputum Culture - Preliminary Sputum Staphylococcus aureus 07/22/17 11:05 Blood Culture - Preliminary Peripheral Venipuncture Gram Positive Cocci 07/23/17 14:30 Legionella Antigen - Final Urine,Catheterized Streptococcus pneumoniae Antigen (M - Final 07/19/17 16:12 Sputum Culture - Final Sputum Methicillin Resistant S.aureus - Clinical Findings Intake & Output: Intake & Output 07/23/17 07/24/17 07/24/17 23:59 07:59 15:59 Intake Total 678 / 678 1415 / 1415 250 / 250 Output Total 200 / 200 600 / 600 400 / 400 Balance 478 / 478 815 / 815 -150 / -150 - Attending Attestation I examined this patient and my medical decision-making was reviewed with the Resident Physician. I agree with the documented findings, disposition and treatment plan as described except to the extent set forth below. We independently had [id number] contact with the patient I spent 33min of Critical Care time with this patient. It involved decision making of high complexity to assess, manipulate, and support vital organ system failure and/or to prevent further life threatening deterioration of the patient' s condition. The time involved in the performance of separately reportable procedures was not counted toward critical care time. Patient seen and examined at bedside Labs, radiology, chart personally reviewed. Management was reviewed during multidisciplinary critical care rounds. 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 Pulm: Acute on chronic hypoxic hypercarbic respiratory failure secondary to pneumonia and COPD exacerbation acceptable gas exchange today on vent peak pressures stable but high this is secondary to her advanced COPD which is terminal stage Cards: Vasodilatory shock has resolved she is off vasopressor currently this is secondary to sepsis lactate has normalized; she has evidence of anasarca starting diuresis FEN-GI: Continue enteral nutrition GI prophylaxis given Renal: No evidence of AK I urine output monitored electrolytes monitored ID: MRSA pneumonia with bacteremia influenza B positive evidence of colitis on CT scan. Send GI panel including C. difficile start Flagyl continue vancomycin and Zosyn and Tamiflu repeat blood cultures. Possible echocardiogram to evaluate for endocarditis. Infectious disease following Heme/Onc: DVT prophylaxis given Endo: Glucose Monitored Integ/MSK: Skin Care per routine ICU Nursing Protocol to prevent ulcers. Lines: All lines examined without evidence of infection : Dispo: Remain in ICU for critical illness CODE: Full
--- NOTE | 2017-07-24 08:35 | Infectious Disease Progress No ---
Date of Encounter: 07/24/17 Time of Encounter: 08:33 - Assessment and Plan (1) Septic shock due to methicillin resistant Staphylococcus aureus Current Visit: Yes Status: Acute Patient had WBC 16.9, hypotension, increased oxygen requirements on mechanical ventilation Organism: MRSA in sputum Sputum culture 07/19/2017 positive for MRSA Blood culture 07/22/2017 gram-positive cocci - PCR positive for staph aureus gene,MecA gene Sputum culture 07/22/2017 Streptococcus aureus Respiratory infectious panel positive for influenza B Plan: - Continue vancomycin pharmacy to dose, discontinue Zosyn, start Tamiflu - Recommend TYE when patient stable - Blood culture pending for central venous line (2) Ventilator-associated bacterial pneumonia Current Visit: Yes Status: Acute Patient required mechanical ventilation since 07/17/17, initial sputum culture negative, sputum culture from 07/19 positive for MRSA - Complicated risk factors include severe COPD, mechanical ventilation - CXR 07/22 concerning for Left lower lobe infiltrate, CT ABD/Pelvis- Bilateral lower lobe infiltrates, left greater than right. Trace left pleural effusion is suggested. CrCl: 72 - Respiratory infectious panel- positive for influenza B, MecA gene and staph aureus, Staphylococcus sp - Legionella urine antigen- NEGATIVE - peripheral smear- pending - Urine strep pneumo- pending Plan: - IV Vancomycin pharmacy to dose (Trough 15) for 4wks - Tamiflu 75mg BID total 5 days (3) Acute and chronic respiratory failure with hypercapnia Current Visit: No Status: Chronic Acute on chronic respiratory failure in a patient with known Severe COPD on hospice care. Respiratory infectious panel positive for influenza B, Sputum culture- MRSA growth. CXR and CT abd/pelvis demonstrate Bilateral lobe infiltrates. - Continue mechanical ventilation management per ICU team - Continue breathing treatments and IV steroids for management. - Continue Antibiotic choice as discussed above. (4) Pansinusitis Current Visit: Yes Status: Acute Pansinusitis and mastoiditis identified on head CT performed 07/22/17 - Organism unknown - Primary team consult to ENT for further evaluation and management. - Antibiotic coverage for MRSA as discussed above. Qualifiers: Chronicity: chronic Qualified Code(s): J32.4 - Chronic pansinusitis (5) Thrombocytopenia Current Visit: Yes Status: Acute Persistent stable thrombocytopenia, in the setting of acute illness. - Continue to monitor daily. - Continue to avoid Zyvox as it may worsen thrombocytopenia. (6) Leukocytosis Current Visit: Yes Status: Acute WBC 15.1, small decreased from yesterday. - Elevation in the setting of IV steroids, influenza B, MRSA pneumonia, gram- positive bacteremia and colitis - Continue to monitor daily. Qualifiers: Leukocytosis type: unspecified Qualified Code(s): D72.829 - Elevated white blood cell count, unspecified (7) Persistent fever Current Visit: Yes Status: Acute Persistent fever likely secondary to underlying respiratory infection and bacteremia. - Afebrile for 24 hours - Continue treatment for influenza B, MRSA pneumonia, gram-positive bacteremia and colitis (8) Influenza B Current Visit: Yes Status: Acute RIP positive for Influenza B - Unsure if this was the cause for initial decompensation followed by superimposed MRSA pneumonia as no influenza swab or RIP collected at the time of admission. Plan: Tamiflu 75mg twice a day total 5 days- Day 1 (9) Gram-positive bacteremia Current Visit: Yes Status: Acute Acutely ill 57-year-old female intubated sedated, on mechanical ventilation. - Blood culture 1 positive for gram-positive cocci - PCR + MecA gene, staph species - Blood culture from Central line ordered Plan: - Vancomycin pharmacy to dose (trough 15) total 4wks ( anticipated stop date August 18) - Day# 4 (10) Colitis Current Visit: Yes Status: Acute Patient intubated, sedated with distended abdomen now with liquid stool with rectal tube. - CT abdomen/pelvis demonstrates findings suggestive of mild focal colitis involving the distal descending colon. - Continue IV Zosyn Q8hrs total 7 days ( Day# 4) - Subjective Interval history: Patient continues to be intubated and sedated, remains stable overnight. No acute changes per nursing. Infect Dis PN-Objective Data - Labs CBC & Chem 7: 07/24/17 03:37 07/24/17 03:37 Labs: Laboratory Results - last 24 hr 07/22/17 07/23/17 07/23/17 11:05 11:17 14:30 WBC RBC Hgb Hct MCV MCH MCHC RDW Plt Count MPV Seg Neutrophils % Lymphocytes % Monocytes % Neutrophils # Lymphocytes # Monocytes # Nucleated RBCs/100 WBC Platelet Estimate Smear Path Review See Below Sample Site ABG pH ABG pCO2 ABG pO2 ABG HCO3 ABG Total CO2 ABG O2 Saturation ABG Base Excess Respiration Rate O2 Delivery Device Blood Gas Modality Inspired O2 Tidal Volume PEEP Sodium Potassium Chloride Carbon Dioxide BUN Creatinine Est GFR ( Amer) Est GFR (Non-Af Amer) BUN/Creatinine Ratio Glucose POC Glucose 200 H Calculated Osmolality Calcium Venous Ioniz Calcium Phosphorus Magnesium Total Bilirubin Direct Bilirubin Indirect Bilirubin AST ALT Alkaline Phosphatase Serum Total Protein Albumin Globulin Albumin/Globulin Ratio Amylase Lipase A. baumannii (PCR) Not Detected Chlamy pneumoniae PCR Adenovirus (PCR) B. pertussis DNA (PCR) B.parapertussis DNA PCR Nayely albicans (PCR) Not Detected C. glabrata (PCR) Not Detected C. krusei (PCR) Not Detected C. parapsilosis (PCR) Not Detected C. tropicalis (PCR) Not Detected Coronavirus OC43 (PCR) Coronavirus HKU1 (PCR) Coronavirus 229E (PCR) Coronavirus NL63 (PCR) Enterobacteriac sp PCR Not Detected E. cloacae complex PCR Not Detected Enterococcus sp PCR Not Detected E. coli (PCR) Not Detected H. influenzae (PCR) Not Detected Human Metapneumovir PCR Influenza A (H1) PCR Influ A (H1N1/09) PCR Influenza A (H3) PCR Influenza A Untype (PCR) Influenza Type B (PCR) Klebsiella oxytoca PCR Not Detected Klebsiella pneumoniae Not Detected List. monocytogenes PCR Not Detected M.pneumoniae DNA (PCR) N. meningitidis (PCR) Not Detected Parainfluenza 1 (PCR) Parainfluenza 2 (PCR) Parainfluenza 3 (PCR) Parainfluenza 4 (PCR) Proteus species (PCR) Not Detected RSV (PCR) Entero/Rhino (PCR) Serratia marcescens PCR Not Detected Staphylococcus sp PCR DETECTED A Staph aureus (PCR) DETECTED A mecA-Methicil Res Gene DETECTED A Streptococcus sp PCR Not Detected Group A Strep DNA Not Detected Group B Strep (PCR) Not Detected Strep pneumoniae (PCR) Not Detected P. aeruginosa (PCR) Not Detected Tristian/B-Vanco Res Genes N/A KPC (blaKPC) Detect PCR N/A 07/23/17 07/23/17 07/23/17 14:30 14:30 14:30 WBC RBC Hgb Hct MCV MCH MCHC RDW Plt Count MPV Seg Neutrophils % Lymphocytes % Monocytes % Neutrophils # Lymphocytes # Monocytes # Nucleated RBCs/100 WBC Platelet Estimate Smear Path Review Sample Site ABG pH ABG pCO2 ABG pO2 ABG HCO3 ABG Total CO2 ABG O2 Saturation ABG Base Excess Respiration Rate O2 Delivery Device Blood Gas Modality Inspired O2 Tidal Volume PEEP Sodium Potassium Chloride Carbon Dioxide BUN Creatinine Est GFR ( Amer) Est GFR (Non-Af Amer) BUN/Creatinine Ratio Glucose POC Glucose Calculated Osmolality Calcium Venous Ioniz Calcium Phosphorus 3.0 Magnesium Total Bilirubin 0.3 Direct Bilirubin 0.2 Indirect Bilirubin 0.1 AST 161 H ALT 332 H Alkaline Phosphatase 55 Serum Total Protein 5.4 L Albumin 2.4 L Globulin 3.0 Albumin/Globulin Ratio 0.8 L Amylase 31 Lipase 15 A. baumannii (PCR) Chlamy pneumoniae PCR Not Detected Adenovirus (PCR) Not Detected B. pertussis DNA (PCR) Not Detected B.parapertussis DNA PCR Not Detected Nayely albicans (PCR) C. glabrata (PCR) C. krusei (PCR) C. parapsilosis (PCR) C. tropicalis (PCR) Coronavirus OC43 (PCR) Not Detected Coronavirus HKU1 (PCR) Not Detected Coronavirus 229E (PCR) Not Detected Coronavirus NL63 (PCR) Not Detected Enterobacteriac sp PCR E. cloacae complex PCR Enterococcus sp PCR E. coli (PCR) H. influenzae (PCR) Human Metapneumovir PCR Not Detected Influenza A (H1) PCR Not Detected Influ A (H1N1/09) PCR Not Detected Influenza A (H3) PCR Not Detected Influenza A Untype (PCR) Not Detected Influenza Type B (PCR) DETECTED A Klebsiella oxytoca PCR Klebsiella pneumoniae List. monocytogenes PCR M.pneumoniae DNA (PCR) Not Detected N. meningitidis (PCR) Parainfluenza 1 (PCR) Not Detected Parainfluenza 2 (PCR) Not Detected Parainfluenza 3 (PCR) Not Detected Parainfluenza 4 (PCR) Not Detected Proteus species (PCR) RSV (PCR) Not Detected Entero/Rhino (PCR) Not Detected Serratia marcescens PCR Staphylococcus sp PCR Staph aureus (PCR) mecA-Methicil Res Gene Streptococcus sp PCR Group A Strep DNA Group B Strep (PCR) Strep pneumoniae (PCR) P. aeruginosa (PCR) Tristian/B-Vanco Res Genes KPC (blaKPC) Detect PCR 07/23/17 07/23/17 07/24/17 15:22 19:56 00:10 WBC RBC Hgb Hct MCV MCH MCHC RDW Plt Count MPV Seg Neutrophils % Lymphocytes % Monocytes % Neutrophils # Lymphocytes # Monocytes # Nucleated RBCs/100 WBC Platelet Estimate Smear Path Review Sample Site ABG pH ABG pCO2 ABG pO2 ABG HCO3 ABG Total CO2 ABG O2 Saturation ABG Base Excess Respiration Rate O2 Delivery Device Blood Gas Modality Inspired O2 Tidal Volume PEEP Sodium Potassium Chloride Carbon Dioxide BUN Creatinine Est GFR ( Amer) Est GFR (Non-Af Amer) BUN/Creatinine Ratio Glucose POC Glucose 190 H 140 H 146 H Calculated Osmolality Calcium Venous Ioniz Calcium Phosphorus Magnesium Total Bilirubin Direct Bilirubin Indirect Bilirubin AST ALT Alkaline Phosphatase Serum Total Protein Albumin Globulin Albumin/Globulin Ratio Amylase Lipase A. baumannii (PCR) Chlamy pneumoniae PCR Adenovirus (PCR) B. pertussis DNA (PCR) B.parapertussis DNA PCR Nayely albicans (PCR) C. glabrata (PCR) C. krusei (PCR) C. parapsilosis (PCR) C. tropicalis (PCR) Coronavirus OC43 (PCR) Coronavirus HKU1 (PCR) Coronavirus 229E (PCR) Coronavirus NL63 (PCR) Enterobacteriac sp PCR E. cloacae complex PCR Enterococcus sp PCR E. coli (PCR) H. influenzae (PCR) Human Metapneumovir PCR Influenza A (H1) PCR Influ A (H1N1/09) PCR Influenza A (H3) PCR Influenza A Untype (PCR) Influenza Type B (PCR) Klebsiella oxytoca PCR Klebsiella pneumoniae List. monocytogenes PCR M.pneumoniae DNA (PCR) N. meningitidis (PCR) Parainfluenza 1 (PCR) Parainfluenza 2 (PCR) Parainfluenza 3 (PCR) Parainfluenza 4 (PCR) Proteus species (PCR) RSV (PCR) Entero/Rhino (PCR) Serratia marcescens PCR Staphylococcus sp PCR Staph aureus (PCR) mecA-Methicil Res Gene Streptococcus sp PCR Group A Strep DNA Group B Strep (PCR) Strep pneumoniae (PCR) P. aeruginosa (PCR) Tristian/B-Vanco Res Genes KPC (blaKPC) Detect PCR 07/24/17 07/24/17 07/24/17 03:37 03:37 03:37 WBC 15.1 H RBC 3.26 L Hgb 8.8 L Hct 28.9 L MCV 88.7 MCH 27.0 L MCHC 30.4 L RDW 14.9 H Plt Count 123 L MPV 12.9 H Seg Neutrophils % 78.0 Lymphocytes % 8.0 Monocytes % 14.0 Neutrophils # 11.8 H Lymphocytes # 1.2 Monocytes # 2.1 H Nucleated RBCs/100 WBC 0.3 H Platelet Estimate Slight Decrease L Smear Path Review Sample Site ABG pH ABG pCO2 ABG pO2 ABG HCO3 ABG Total CO2 ABG O2 Saturation ABG Base Excess Respiration Rate O2 Delivery Device Blood Gas Modality Inspired O2 Tidal Volume PEEP Sodium 135 L Potassium 4.3 Chloride 101 Carbon Dioxide 29 BUN 31 H Creatinine 0.76 Est GFR ( Amer) > 60 Est GFR (Non-Af Amer) > 60 BUN/Creatinine Ratio 41 H Glucose 156 H POC Glucose Calculated Osmolality 290 Calcium 7.7 L Venous Ioniz Calcium Phosphorus 2.8 Magnesium 1.7 Total Bilirubin Direct Bilirubin Indirect Bilirubin AST ALT Alkaline Phosphatase Serum Total Protein Albumin Globulin Albumin/Globulin Ratio Amylase Lipase A. baumannii (PCR) Chlamy pneumoniae PCR Adenovirus (PCR) B. pertussis DNA (PCR) B.parapertussis DNA PCR Nayely albicans (PCR) C. glabrata (PCR) C. krusei (PCR) C. parapsilosis (PCR) C. tropicalis (PCR) Coronavirus OC43 (PCR) Coronavirus HKU1 (PCR) Coronavirus 229E (PCR) Coronavirus NL63 (PCR) Enterobacteriac sp PCR E. cloacae complex PCR Enterococcus sp PCR E. coli (PCR) H. influenzae (PCR) Human Metapneumovir PCR Influenza A (H1) PCR Influ A (H1N1/09) PCR Influenza A (H3) PCR Influenza A Untype (PCR) Influenza Type B (PCR) Klebsiella oxytoca PCR Klebsiella pneumoniae List. monocytogenes PCR M.pneumoniae DNA (PCR) N. meningitidis (PCR) Parainfluenza 1 (PCR) Parainfluenza 2 (PCR) Parainfluenza 3 (PCR) Parainfluenza 4 (PCR) Proteus species (PCR) RSV (PCR) Entero/Rhino (PCR) Serratia marcescens PCR Staphylococcus sp PCR Staph aureus (PCR) mecA-Methicil Res Gene Streptococcus sp PCR Group A Strep DNA Group B Strep (PCR) Strep pneumoniae (PCR) P. aeruginosa (PCR) Tristian/B-Vanco Res Genes KPC (blaKPC) Detect PCR 07/24/17 07/24/17 07/24/17 03:49 04:23 05:52 WBC RBC Hgb Hct MCV MCH MCHC RDW Plt Count MPV Seg Neutrophils % Lymphocytes % Monocytes % Neutrophils # Lymphocytes # Monocytes # Nucleated RBCs/100 WBC Platelet Estimate Smear Path Review Sample Site R Brach ABG pH 7.32 ABG pCO2 59 H ABG pO2 61 L ABG HCO3 31 H ABG Total CO2 32 H ABG O2 Saturation 88 L ABG Base Excess 4 H Respiration Rate 14 O2 Delivery Device Adult Vent Blood Gas Modality VC Inspired O2 40.0 Tidal Volume 440 PEEP 5 Sodium Potassium Chloride Carbon Dioxide BUN Creatinine Est GFR ( Amer) Est GFR (Non-Af Amer) BUN/Creatinine Ratio Glucose POC Glucose 170 H Calculated Osmolality Calcium Venous Ioniz Calcium 1.06 L Phosphorus Magnesium Total Bilirubin Direct Bilirubin Indirect Bilirubin AST ALT Alkaline Phosphatase Serum Total Protein Albumin Globulin Albumin/Globulin Ratio Amylase Lipase A. baumannii (PCR) Chlamy pneumoniae PCR Adenovirus (PCR) B. pertussis DNA (PCR) B.parapertussis DNA PCR Nayely albicans (PCR) C. glabrata (PCR) C. krusei (PCR) C. parapsilosis (PCR) C. tropicalis (PCR) Coronavirus OC43 (PCR) Coronavirus HKU1 (PCR) Coronavirus 229E (PCR) Coronavirus NL63 (PCR) Enterobacteriac sp PCR E. cloacae complex PCR Enterococcus sp PCR E. coli (PCR) H. influenzae (PCR) Human Metapneumovir PCR Influenza A (H1) PCR Influ A (H1N1/09) PCR Influenza A (H3) PCR Influenza A Untype (PCR) Influenza Type B (PCR) Klebsiella oxytoca PCR Klebsiella pneumoniae List. monocytogenes PCR M.pneumoniae DNA (PCR) N. meningitidis (PCR) Parainfluenza 1 (PCR) Parainfluenza 2 (PCR) Parainfluenza 3 (PCR) Parainfluenza 4 (PCR) Proteus species (PCR) RSV (PCR) Entero/Rhino (PCR) Serratia marcescens PCR Staphylococcus sp PCR Staph aureus (PCR) mecA-Methicil Res Gene Streptococcus sp PCR Group A Strep DNA Group B Strep (PCR) Strep pneumoniae (PCR) P. aeruginosa (PCR) Tristian/B-Vanco Res Genes KPC (blaKPC) Detect PCR 07/24/17 08:07 WBC RBC Hgb Hct MCV MCH MCHC RDW Plt Count MPV Seg Neutrophils % Lymphocytes % Monocytes % Neutrophils # Lymphocytes # Monocytes # Nucleated RBCs/100 WBC Platelet Estimate Smear Path Review Sample Site ABG pH ABG pCO2 ABG pO2 ABG HCO3 ABG Total CO2 ABG O2 Saturation ABG Base Excess Respiration Rate O2 Delivery Device Blood Gas Modality Inspired O2 Tidal Volume PEEP Sodium Potassium Chloride Carbon Dioxide BUN Creatinine Est GFR ( Amer) Est GFR (Non-Af Amer) BUN/Creatinine Ratio Glucose POC Glucose 183 H Calculated Osmolality Calcium Venous Ioniz Calcium Phosphorus Magnesium Total Bilirubin Direct Bilirubin Indirect Bilirubin AST ALT Alkaline Phosphatase Serum Total Protein Albumin Globulin Albumin/Globulin Ratio Amylase Lipase A. baumannii (PCR) Chlamy pneumoniae PCR Adenovirus (PCR) B. pertussis DNA (PCR) B.parapertussis DNA PCR Naeyly albicans (PCR) C. glabrata (PCR) C. krusei (PCR) C. parapsilosis (PCR) C. tropicalis (PCR) Coronavirus OC43 (PCR) Coronavirus HKU1 (PCR) Coronavirus 229E (PCR) Coronavirus NL63 (PCR) Enterobacteriac sp PCR E. cloacae complex PCR Enterococcus sp PCR E. coli (PCR) H. influenzae (PCR) Human Metapneumovir PCR Influenza A (H1) PCR Influ A (H1N1/09) PCR Influenza A (H3) PCR Influenza A Untype (PCR) Influenza Type B (PCR) Klebsiella oxytoca PCR Klebsiella pneumoniae List. monocytogenes PCR M.pneumoniae DNA (PCR) N. meningitidis (PCR) Parainfluenza 1 (PCR) Parainfluenza 2 (PCR) Parainfluenza 3 (PCR) Parainfluenza 4 (PCR) Proteus species (PCR) RSV (PCR) Entero/Rhino (PCR) Serratia marcescens PCR Staphylococcus sp PCR Staph aureus (PCR) mecA-Methicil Res Gene Streptococcus sp PCR Group A Strep DNA Group B Strep (PCR) Strep pneumoniae (PCR) P. aeruginosa (PCR) Tristian/B-Vanco Res Genes KPC (blaKPC) Detect PCR Cultures: Cultures 07/22/17 11:00 Blood Culture - Preliminary Peripheral Venipuncture No growth. 07/22/17 20:44 Sputum Culture - Preliminary Sputum Staphylococcus aureus 07/22/17 11:05 Blood Culture - Preliminary Peripheral Venipuncture Gram Positive Cocci 07/23/17 14:30 Legionella Antigen - Final Urine,Catheterized Streptococcus pneumoniae Antigen (M - Final 07/19/17 16:12 Sputum Culture - Final Sputum Methicillin Resistant S.aureus 07/17/17 15:27 Sputum Culture - Final Sputum Serology 07/23/17 07/22/17 Range/Units 14:30 11:05 A. baumannii (PCR) Not Detected (Not Detect) Chlamy pneumoniae PCR Not Detected (Not Detect) Adenovirus (PCR) Not Detected (Not Detect) B. pertussis DNA (PCR) Not Detected (Not Detect) B.parapertussis DNA PCR Not Detected (Not Detect) Nayely albicans (PCR) Not Detected (Not Detect) C. glabrata (PCR) Not Detected (Not Detect) C. krusei (PCR) Not Detected (Not Detect) C. parapsilosis (PCR) Not Detected (Not Detect) C. tropicalis (PCR) Not Detected (Not Detect) Coronavirus OC43 (PCR) Not Detected (Not Detect) Coronavirus HKU1 (PCR) Not Detected (Not Detect) Coronavirus 229E (PCR) Not Detected (Not Detect) Coronavirus NL63 (PCR) Not Detected (Not Detect) Enterobacteriac sp PCR Not Detected (Not Detect) E. cloacae complex PCR Not Detected (Not Detect) Enterococcus sp PCR Not Detected (Not Detect) E. coli (PCR) Not Detected (Not Detect) H. influenzae (PCR) Not Detected (Not Detect) Human Metapneumovir PCR Not Detected (Not Detect) Influenza A (H1) PCR Not Detected (Not Detect) Influ A (H1N1/09) PCR Not Detected (Not Detect) Influenza A (H3) PCR Not Detected (Not Detect) Influenza A Untype (PCR) Not Detected (Not Detect) Influenza Type B (PCR) DETECTED A (Not Detect) Klebsiella oxytoca PCR Not Detected (Not Detect) Klebsiella pneumoniae Not Detected (Not Detect) List. monocytogenes PCR Not Detected (Not Detect) M.pneumoniae DNA (PCR) Not Detected (Not Detect) N. meningitidis (PCR) Not Detected (Not Detect) Parainfluenza 1 (PCR) Not Detected (Not Detect) Parainfluenza 2 (PCR) Not Detected (Not Detect) Parainfluenza 3 (PCR) Not Detected (Not Detect) Parainfluenza 4 (PCR) Not Detected (Not Detect) Proteus species (PCR) Not Detected (Not Detect) RSV (PCR) Not Detected (Not Detect) Entero/Rhino (PCR) Not Detected (Not Detect) Serratia marcescens PCR Not Detected (Not Detect) Staphylococcus sp PCR DETECTED A (Not Detect) Staph aureus (PCR) DETECTED A (Not Detect) mecA-Methicil Res Gene DETECTED A (Not Detect) Streptococcus sp PCR Not Detected (Not Detect) Group A Strep DNA Not Detected (Not Detect) Group B Strep (PCR) Not Detected (Not Detect) Strep pneumoniae (PCR) Not Detected (Not Detect) P. aeruginosa (PCR) Not Detected (Not Detect) Tristian/B-Vanco Res Genes N/A (Not Detect) KPC (blaKPC) Detect PCR N/A (Not Detect) - Impressions Impressions Abdomen/Pelvis CT 07/23/17 18:45 IMPRESSION: 1. Bilateral lower lobe infiltrates, left greater than right. Trace left pleural effusion is suggested. 2. Findings suggestive of a mild focal colitis involving the distal descending colon. 3. Small to moderate amount of ascites. 4. Advanced aortoiliac atherosclerotic disease. Multifocal stenoses are suggested within the iliac circulation bilaterally, right greater than left, as well as in the distal aorta. D/ / 07/23/2017 19:40:51 Danielito Jeffery MD / zora Interpreting Provider: Danielito Jeffery MD Exam - Constitutional Vitals: Temp Pulse Resp BP Pulse Ox 97.7 F 84 14 129/81 97 07/24/17 08:00 07/24/17 06:00 07/24/17 07:56 07/24/17 07:56 07/24/17 07:56 Exam: General: Patient intubated and sedated requiring mechanical ventilation. HEENT: Patient has periorbital edema, oral edema with endotracheal tube, OG tube in place. Chest: Symmetric bilateral correlating with mechanical ventilation. Cardiac: Regular rate and rhythm, positive S1 and S2. no bruits appreciated bilateral carotids, Radial pulses 2+ bilateral, posterior tibial and dorsal pedal pulses 2+ bilateral. Respiratory: Diffusely diminished breath sounds with rhonchi and wheezing throughout. Abdomen: Distended, tympanic, hypoactive bowel sounds. Extremities: Symmetric bilateral, bilateral upper and lower extremities demonstrate anasarca - VTE Documentation of Mechanical Device: Intermittent pneumatic compression device Consult Discharge Plan - Plan Referrals: NONE,PCP [Primary Care Provider] - - Attending Attestation I examined this patient and my medical decision-making was reviewed with the Resident Physician. I agree with the documented findings, disposition and treatment plan as described except to the extent set forth below. PT requiring FiO2 of 40% with PEEP of 5. NO pressors, no longer paralyzed. some residual on tube feeding. less sputum production per suctioning had a large BM yesterday (likely due to the oral contrast) pt's stool sent for C diff and GI panel since now she has diarrhea and CT findings of focal colitis pt started empirically on flagyl, current guidelines recommend oral vancomycin as first line agent, if C diff is positive, start oral vancomying per NG tube. start tamiflu 75 bid (based on CrCl) continue vancomycin and zosyn goal vancomycin trough around 15-20 pt will need a TYE prior to discharge if clinically possible
[2017-07-24 08:45] LABS: VBG HCO3 30 mEq/L (21-27); VBG Ionized Calcium 1.05 mmol/L (1.15-1.35); VBG PCO2 61 mmHg (41-51); VBG PO2 132 mmHg (25-50)
[2017-07-24 08:55] LABS: Magnesium 2.1 mg/dL (1.6-2.6); Phosphorous 2.7 mg/dL (2.7-4.5)
[2017-07-24] MEDS: Nystatin SUSP 5 ML UD.LIQ PO SCH ×4 (09:10→20:20)
[2017-07-24] MEDS: MethylPREDNISolone 40 MG/ML VIAL IVP SCH ×3 (09:10→23:28)
[2017-07-24] MEDS: Chlorhexidine Rinse 15 ML MOUTHWASH MM SCH ×2 (09:10→20:19)
[2017-07-24] MEDS: Nicotine 14 MG PATCH.TD24 TD SCH (09:10)
[2017-07-24] MEDS: Pantoprazole 40 MG VIAL IVP SCH (09:10)
[2017-07-24] MEDS: Norepinephrine 4 MG in D5% in Water 250 ML IVC SCH (09:28)
[2017-07-24] MEDS: Bisacodyl 10 MG RECTAL SUPPOSITORY RC SCH (09:28)
[2017-07-24] MEDS ORDERED: metroNIDAZOLE 500 MG TABLET PO SCH (11:00)
[2017-07-24] MEDS ORDERED: Furosemide 40 MG/4 ML VIAL IVP ONE (11:14)
--- NOTE | 2017-07-24 12:30 | Palliative Progress Note ---
Date of Encounter: 07/24/17 Time of Encounter: 08:00 - Assessment and plan (1) Acute and chronic respiratory failure with hypercapnia Current Visit: No Status: Resolved Assessment and plan: Patient on ventilator. Lytic was stopped today. Be on Solu-Medrol doing nebs. Antibiotics are being adjusted by the pulmonary team. (2) Encephalopathy Current Visit: No Status: Resolved Assessment and plan: Multifactorial in nature, however at this time it is primarily due to medications patient is being given she is able to be weaned off these medications encephalopathy may improve to some degree. Patient is sedated on vent. (3) Goals of care, counseling/discussion Current Visit: Yes Status: Acute Assessment and plan: Patient is still full code, nurse practitioner has been in contact with patient' s son Kiet. Awaiting results of ID and ENT consults. (4) Gram-positive bacteremia Current Visit: Yes Status: Acute Assessment and plan: On antibiotics for this as well as Tamiflu for flu plan per hospitalist/ [employer]ille and talking books clerk team. - Time Spent With Patient Total time spent is greater than 50% in coordination of care (as documented) at patient's floor/unit and/or counseling patient: - Subjective Interval history: No acute events noted last night. Night before did have a fever to 102.4. Increased white count found to be in septic shock requiring levo fed. Morning the patient's paralytic was stopped. She continues to be sedated on vent. - Constitutional Vitals: Abnormal lab results WBC 15.1 K/mcL (4.3-11.1) H 07/24/17 03:37 RBC 3.26 M/mcL (3.82-4.97) L 07/24/17 03:37 Hgb 8.8 g/dL (11.5-15.4) L 07/24/17 03:37 Hct 28.9 % (35.3-44.9) L 07/24/17 03:37 MCH 27.0 pg (28.0-33.3) L 07/24/17 03:37 MCHC 30.4 g/dL (31.6-35.5) L 07/24/17 03:37 RDW 14.9 % (11.5-14.5) H 07/24/17 03:37 Plt Count 123 K/mcL (140-400) L 07/24/17 03:37 MPV 12.9 fL (9.4-12.4) H 07/24/17 03:37 Immature Gran % 4.9 % (0-4) H 07/23/17 03:27 Neutrophils # 11.8 K/mcL (1.6-8.9) H 07/24/17 03:37 Monocytes # 2.1 K/mcL (0.0-1.3) H 07/24/17 03:37 Nucleated RBCs/100 WBC 0.3 /100 WBC (0) H 07/24/17 03:37 Platelet Estimate Slight Decrease (Normal) L 07/24/17 03:37 Immature Plt Fraction 15.4 % (1.1-6.1) H 07/21/17 03:40 Hypochromasia Present (Not Present) A 07/23/17 03:27 APTT 66.6 Seconds (26.0-36.0) H 07/20/17 03:41 D-Dimer 565 ng/mLFEU (0-500) H 07/17/17 03:46 Heparin Anti-Xa, Unfract 0.99 IU/mL (0.30-0.70) H 07/18/17 06:00 ABG pCO2 59 mmHg (35-45) H 07/24/17 05:52 ABG pO2 61 mmHg (85-104) L 07/24/17 05:52 ABG HCO3 31 mEq/L (21-27) H 07/24/17 05:52 ABG Total CO2 32 mEq/L (20-26) H 07/24/17 05:52 ABG O2 Saturation 88 % (95-98) L 07/24/17 05:52 ABG Base Excess 4 mEq/L (-2 to 3) H 07/24/17 05:52 VBG pH 7.30 pH Units (7.32-7.42) L 07/24/17 08:37 VBG pCO2 61 mmHg (41-51) H 07/24/17 08:37 VBG pO2 132 mmHg (25-50) H 07/24/17 08:37 VBG HCO3 30 mEq/L (21-27) H 07/24/17 08:37 Sodium 135 mEq/L (136-145) L 07/24/17 03:37 BUN 31 mg/dL (6-20) H 07/24/17 03:37 BUN/Creatinine Ratio 41 (6-26) H 07/24/17 03:37 Glucose 156 mg/dL (70-105) H 07/24/17 03:37 POC Glucose 185 (58-89) H 07/24/17 11:49 Calcium 7.7 mg/dL (8.6-10.3) L 07/24/17 03:37 Venous Ioniz Calcium 1.05 mmol/L (1.15-1.35) L 07/24/17 08:37 AST 161 Units/L (13-39) H 07/23/17 14:30 ALT 332 Units/L (7-52) H 07/23/17 14:30 Troponin I 0.69 ng/mL (< 0.04) H* 07/18/17 04:00 B-Natriuretic Peptide 207 pg/mL (Less than 100) H 07/17/17 15:27 Serum Total Protein 5.4 g/dL (6.4-8.9) L 07/23/17 14:30 Albumin 2.4 g/dL (3.5-5.7) L 07/23/17 14:30 Albumin/Globulin Ratio 0.8 (1.1-2.2) L 07/23/17 14:30 Ur Specific Lackey 1.029 (1.010-1.025) H 07/17/17 05:45 Influenza Type B (PCR) DETECTED (Not Detect) A 07/23/17 14:30 Staphylococcus sp PCR DETECTED (Not Detect) A 07/22/17 11:05 Staph aureus (PCR) DETECTED (Not Detect) A 07/22/17 11:05 mecA-Methicil Res Gene DETECTED (Not Detect) A 07/22/17 11:05 General appearance: Present: no acute distress - Eye Eye exam: Present: normal appearance - Respiratory Respiratory exam: Present: decreased breath sounds (Dated on vent), wheezes - Cardiovascular Cardiovascular exam: Present: RRR - GI/Abdominal GI/Abdominal exam: Present: hypoactive bowel sounds - Extremities Exam Extremities exam: Absent: tenderness - Neurological Exam Neurological exam: Present: altered (Sedated on vent and paralyzed) - Psychiatric Psychiatric exam: Absent: agitated, anxious - Skin Skin exam: Present: dry, warm Palliative Quality Palliative Quality: Screen for Code Status: Yes, Screen for Goals of Care: NA, Screen for Pain: Yes, If Pain Regimen Started, Initiate Bowel Regimen: NA, Screen for Nausea/Vomitting: NA Code Status: 07/17/17 11:52 FULL [Resuscitation Status: Active] [RES] Routine Comment: Resuscitation Status: Full Code - Labs CBC & Chem 7: 07/24/17 03:37 07/24/17 03:37 Labs: Laboratory Results - last 24 hr 07/22/17 07/23/17 07/23/17 11:05 14:30 14:30 WBC RBC Hgb Hct MCV MCH MCHC RDW Plt Count MPV Seg Neutrophils % Lymphocytes % Monocytes % Neutrophils # Lymphocytes # Monocytes # Nucleated RBCs/100 WBC Platelet Estimate Smear Path Review See Below Sample Site ABG pH ABG pCO2 ABG pO2 ABG HCO3 ABG Total CO2 ABG O2 Saturation ABG Base Excess VBG pH VBG pCO2 VBG pO2 VBG HCO3 Respiration Rate O2 Delivery Device Blood Gas Modality Inspired O2 Tidal Volume PEEP Sodium Potassium Chloride Carbon Dioxide BUN Creatinine Est GFR ( Amer) Est GFR (Non-Af Amer) BUN/Creatinine Ratio Glucose POC Glucose Calculated Osmolality Calcium Venous Ioniz Calcium Phosphorus Magnesium Total Bilirubin 0.3 Direct Bilirubin 0.2 Indirect Bilirubin 0.1 AST 161 H ALT 332 H Alkaline Phosphatase 55 Serum Total Protein 5.4 L Albumin 2.4 L Globulin 3.0 Albumin/Globulin Ratio 0.8 L Amylase 31 Lipase 15 A. baumannii (PCR) Not Detected Chlamy pneumoniae PCR Adenovirus (PCR) B. pertussis DNA (PCR) B.parapertussis DNA PCR Nayely albicans (PCR) Not Detected C. glabrata (PCR) Not Detected C. krusei (PCR) Not Detected C. parapsilosis (PCR) Not Detected C. tropicalis (PCR) Not Detected Coronavirus OC43 (PCR) Coronavirus HKU1 (PCR) Coronavirus 229E (PCR) Coronavirus NL63 (PCR) Enterobacteriac sp PCR Not Detected E. cloacae complex PCR Not Detected Enterococcus sp PCR Not Detected E. coli (PCR) Not Detected H. influenzae (PCR) Not Detected Human Metapneumovir PCR Influenza A (H1) PCR Influ A (H1N1/09) PCR Influenza A (H3) PCR Influenza A Untype (PCR) Influenza Type B (PCR) Klebsiella oxytoca PCR Not Detected Klebsiella pneumoniae Not Detected List. monocytogenes PCR Not Detected M.pneumoniae DNA (PCR) N. meningitidis (PCR) Not Detected Parainfluenza 1 (PCR) Parainfluenza 2 (PCR) Parainfluenza 3 (PCR) Parainfluenza 4 (PCR) Proteus species (PCR) Not Detected RSV (PCR) Entero/Rhino (PCR) Serratia marcescens PCR Not Detected Staphylococcus sp PCR DETECTED A Staph aureus (PCR) DETECTED A mecA-Methicil Res Gene DETECTED A Streptococcus sp PCR Not Detected Group A Strep DNA Not Detected Group B Strep (PCR) Not Detected Strep pneumoniae (PCR) Not Detected P. aeruginosa (PCR) Not Detected Tristian/B-Vanco Res Genes N/A KPC (blaKPC) Detect PCR N/A 07/23/17 07/23/17 07/23/17 14:30 14:30 15:22 WBC RBC Hgb Hct MCV MCH MCHC RDW Plt Count MPV Seg Neutrophils % Lymphocytes % Monocytes % Neutrophils # Lymphocytes # Monocytes # Nucleated RBCs/100 WBC Platelet Estimate Smear Path Review Sample Site ABG pH ABG pCO2 ABG pO2 ABG HCO3 ABG Total CO2 ABG O2 Saturation ABG Base Excess VBG pH VBG pCO2 VBG pO2 VBG HCO3 Respiration Rate O2 Delivery Device Blood Gas Modality Inspired O2 Tidal Volume PEEP Sodium Potassium Chloride Carbon Dioxide BUN Creatinine Est GFR ( Amer) Est GFR (Non-Af Amer) BUN/Creatinine Ratio Glucose POC Glucose 190 H Calculated Osmolality Calcium Venous Ioniz Calcium Phosphorus 3.0 Magnesium Total Bilirubin Direct Bilirubin Indirect Bilirubin AST ALT Alkaline Phosphatase Serum Total Protein Albumin Globulin Albumin/Globulin Ratio Amylase Lipase A. baumannii (PCR) Chlamy pneumoniae PCR Not Detected Adenovirus (PCR) Not Detected B. pertussis DNA (PCR) Not Detected B.parapertussis DNA PCR Not Detected Nayely albicans (PCR) C. glabrata (PCR) C. krusei (PCR) C. parapsilosis (PCR) C. tropicalis (PCR) Coronavirus OC43 (PCR) Not Detected Coronavirus HKU1 (PCR) Not Detected Coronavirus 229E (PCR) Not Detected Coronavirus NL63 (PCR) Not Detected Enterobacteriac sp PCR E. cloacae complex PCR Enterococcus sp PCR E. coli (PCR) H. influenzae (PCR) Human Metapneumovir PCR Not Detected Influenza A (H1) PCR Not Detected Influ A (H1N1/09) PCR Not Detected Influenza A (H3) PCR Not Detected Influenza A Untype (PCR) Not Detected Influenza Type B (PCR) DETECTED A Klebsiella oxytoca PCR Klebsiella pneumoniae List. monocytogenes PCR M.pneumoniae DNA (PCR) Not Detected N. meningitidis (PCR) Parainfluenza 1 (PCR) Not Detected Parainfluenza 2 (PCR) Not Detected Parainfluenza 3 (PCR) Not Detected Parainfluenza 4 (PCR) Not Detected Proteus species (PCR) RSV (PCR) Not Detected Entero/Rhino (PCR) Not Detected Serratia marcescens PCR Staphylococcus sp PCR Staph aureus (PCR) mecA-Methicil Res Gene Streptococcus sp PCR Group A Strep DNA Group B Strep (PCR) Strep pneumoniae (PCR) P. aeruginosa (PCR) Tristian/B-Vanco Res Genes KPC (blaKPC) Detect PCR 07/23/17 07/24/17 07/24/17 19:56 00:10 03:37 WBC RBC Hgb Hct MCV MCH MCHC RDW Plt Count MPV Seg Neutrophils % Lymphocytes % Monocytes % Neutrophils # Lymphocytes # Monocytes # Nucleated RBCs/100 WBC Platelet Estimate Smear Path Review Sample Site ABG pH ABG pCO2 ABG pO2 ABG HCO3 ABG Total CO2 ABG O2 Saturation ABG Base Excess VBG pH VBG pCO2 VBG pO2 VBG HCO3 Respiration Rate O2 Delivery Device Blood Gas Modality Inspired O2 Tidal Volume PEEP Sodium Potassium Chloride Carbon Dioxide BUN Creatinine Est GFR ( Amer) Est GFR (Non-Af Amer) BUN/Creatinine Ratio Glucose POC Glucose 140 H 146 H Calculated Osmolality Calcium Venous Ioniz Calcium Phosphorus 2.8 Magnesium 1.7 Total Bilirubin Direct Bilirubin Indirect Bilirubin AST ALT Alkaline Phosphatase Serum Total Protein Albumin Globulin Albumin/Globulin Ratio Amylase Lipase A. baumannii (PCR) Chlamy pneumoniae PCR Adenovirus (PCR) B. pertussis DNA (PCR) B.parapertussis DNA PCR Nayely albicans (PCR) C. glabrata (PCR) C. krusei (PCR) C. parapsilosis (PCR) C. tropicalis (PCR) Coronavirus OC43 (PCR) Coronavirus HKU1 (PCR) Coronavirus 229E (PCR) Coronavirus NL63 (PCR) Enterobacteriac sp PCR E. cloacae complex PCR Enterococcus sp PCR E. coli (PCR) H. influenzae (PCR) Human Metapneumovir PCR Influenza A (H1) PCR Influ A (H1N1/09) PCR Influenza A (H3) PCR Influenza A Untype (PCR) Influenza Type B (PCR) Klebsiella oxytoca PCR Klebsiella pneumoniae List. monocytogenes PCR M.pneumoniae DNA (PCR) N. meningitidis (PCR) Parainfluenza 1 (PCR) Parainfluenza 2 (PCR) Parainfluenza 3 (PCR) Parainfluenza 4 (PCR) Proteus species (PCR) RSV (PCR) Entero/Rhino (PCR) Serratia marcescens PCR Staphylococcus sp PCR Staph aureus (PCR) mecA-Methicil Res Gene Streptococcus sp PCR Group A Strep DNA Group B Strep (PCR) Strep pneumoniae (PCR) P. aeruginosa (PCR) Tristian/B-Vanco Res Genes KPC (blaKPC) Detect PCR 07/24/17 07/24/17 07/24/17 03:37 03:37 03:49 WBC 15.1 H RBC 3.26 L Hgb 8.8 L Hct 28.9 L MCV 88.7 MCH 27.0 L MCHC 30.4 L RDW 14.9 H Plt Count 123 L MPV 12.9 H Seg Neutrophils % 78.0 Lymphocytes % 8.0 Monocytes % 14.0 Neutrophils # 11.8 H Lymphocytes # 1.2 Monocytes # 2.1 H Nucleated RBCs/100 WBC 0.3 H Platelet Estimate Slight Decrease L Smear Path Review Sample Site ABG pH ABG pCO2 ABG pO2 ABG HCO3 ABG Total CO2 ABG O2 Saturation ABG Base Excess VBG pH VBG pCO2 VBG pO2 VBG HCO3 Respiration Rate O2 Delivery Device Blood Gas Modality Inspired O2 Tidal Volume PEEP Sodium 135 L Potassium 4.3 Chloride 101 Carbon Dioxide 29 BUN 31 H Creatinine 0.76 Est GFR ( Amer) > 60 Est GFR (Non-Af Amer) > 60 BUN/Creatinine Ratio 41 H Glucose 156 H POC Glucose Calculated Osmolality 290 Calcium 7.7 L Venous Ioniz Calcium 1.06 L Phosphorus Magnesium Total Bilirubin Direct Bilirubin Indirect Bilirubin AST ALT Alkaline Phosphatase Serum Total Protein Albumin Globulin Albumin/Globulin Ratio Amylase Lipase A. baumannii (PCR) Chlamy pneumoniae PCR Adenovirus (PCR) B. pertussis DNA (PCR) B.parapertussis DNA PCR Nayely albicans (PCR) C. glabrata (PCR) C. krusei (PCR) C. parapsilosis (PCR) C. tropicalis (PCR) Coronavirus OC43 (PCR) Coronavirus HKU1 (PCR) Coronavirus 229E (PCR) Coronavirus NL63 (PCR) Enterobacteriac sp PCR E. cloacae complex PCR Enterococcus sp PCR E. coli (PCR) H. influenzae (PCR) Human Metapneumovir PCR Influenza A (H1) PCR Influ A (H1N1/09) PCR Influenza A (H3) PCR Influenza A Untype (PCR) Influenza Type B (PCR) Klebsiella oxytoca PCR Klebsiella pneumoniae List. monocytogenes PCR M.pneumoniae DNA (PCR) N. meningitidis (PCR) Parainfluenza 1 (PCR) Parainfluenza 2 (PCR) Parainfluenza 3 (PCR) Parainfluenza 4 (PCR) Proteus species (PCR) RSV (PCR) Entero/Rhino (PCR) Serratia marcescens PCR Staphylococcus sp PCR Staph aureus (PCR) mecA-Methicil Res Gene Streptococcus sp PCR Group A Strep DNA Group B Strep (PCR) Strep pneumoniae (PCR) P. aeruginosa (PCR) Tristian/B-Vanco Res Genes KPC (blaKPC) Detect PCR 07/24/17 07/24/17 07/24/17 04:23 05:52 08:00 WBC RBC Hgb Hct MCV MCH MCHC RDW Plt Count MPV Seg Neutrophils % Lymphocytes % Monocytes % Neutrophils # Lymphocytes # Monocytes # Nucleated RBCs/100 WBC Platelet Estimate Smear Path Review Sample Site R Brach ABG pH 7.32 ABG pCO2 59 H ABG pO2 61 L ABG HCO3 31 H ABG Total CO2 32 H ABG O2 Saturation 88 L ABG Base Excess 4 H VBG pH VBG pCO2 VBG pO2 VBG HCO3 Respiration Rate 14 O2 Delivery Device Adult Vent Blood Gas Modality VC Inspired O2 40.0 Tidal Volume 440 PEEP 5 Sodium Potassium Chloride Carbon Dioxide BUN Creatinine Est GFR ( Amer) Est GFR (Non-Af Amer) BUN/Creatinine Ratio Glucose POC Glucose 170 H Calculated Osmolality Calcium Venous Ioniz Calcium Phosphorus 2.7 Magnesium 2.1 Total Bilirubin Direct Bilirubin Indirect Bilirubin AST ALT Alkaline Phosphatase Serum Total Protein Albumin Globulin Albumin/Globulin Ratio Amylase Lipase A. baumannii (PCR) Chlamy pneumoniae PCR Adenovirus (PCR) B. pertussis DNA (PCR) B.parapertussis DNA PCR Nayely albicans (PCR) C. glabrata (PCR) C. krusei (PCR) C. parapsilosis (PCR) C. tropicalis (PCR) Coronavirus OC43 (PCR) Coronavirus HKU1 (PCR) Coronavirus 229E (PCR) Coronavirus NL63 (PCR) Enterobacteriac sp PCR E. cloacae complex PCR Enterococcus sp PCR E. coli (PCR) H. influenzae (PCR) Human Metapneumovir PCR Influenza A (H1) PCR Influ A (H1N1/09) PCR Influenza A (H3) PCR Influenza A Untype (PCR) Influenza Type B (PCR) Klebsiella oxytoca PCR Klebsiella pneumoniae List. monocytogenes PCR M.pneumoniae DNA (PCR) N. meningitidis (PCR) Parainfluenza 1 (PCR) Parainfluenza 2 (PCR) Parainfluenza 3 (PCR) Parainfluenza 4 (PCR) Proteus species (PCR) RSV (PCR) Entero/Rhino (PCR) Serratia marcescens PCR Staphylococcus sp PCR Staph aureus (PCR) mecA-Methicil Res Gene Streptococcus sp PCR Group A Strep DNA Group B Strep (PCR) Strep pneumoniae (PCR) P. aeruginosa (PCR) Tristian/B-Vanco Res Genes KPC (blaKPC) Detect PCR 07/24/17 07/24/17 07/24/17 08:07 08:37 11:49 WBC RBC Hgb Hct MCV MCH MCHC RDW Plt Count MPV Seg Neutrophils % Lymphocytes % Monocytes % Neutrophils # Lymphocytes # Monocytes # Nucleated RBCs/100 WBC Platelet Estimate Smear Path Review Sample Site ABG pH ABG pCO2 ABG pO2 ABG HCO3 ABG Total CO2 ABG O2 Saturation ABG Base Excess VBG pH 7.30 L VBG pCO2 61 H VBG pO2 132 H VBG HCO3 30 H Respiration Rate O2 Delivery Device Blood Gas Modality Inspired O2 Tidal Volume PEEP Sodium Potassium Chloride Carbon Dioxide BUN Creatinine Est GFR ( Amer) Est GFR (Non-Af Amer) BUN/Creatinine Ratio Glucose POC Glucose 183 H 185 H Calculated Osmolality Calcium Venous Ioniz Calcium 1.05 L Phosphorus Magnesium Total Bilirubin Direct Bilirubin Indirect Bilirubin AST ALT Alkaline Phosphatase Serum Total Protein Albumin Globulin Albumin/Globulin Ratio Amylase Lipase A. baumannii (PCR) Chlamy pneumoniae PCR Adenovirus (PCR) B. pertussis DNA (PCR) B.parapertussis DNA PCR Nayely albicans (PCR) C. glabrata (PCR) C. krusei (PCR) C. parapsilosis (PCR) C. tropicalis (PCR) Coronavirus OC43 (PCR) Coronavirus HKU1 (PCR) Coronavirus 229E (PCR) Coronavirus NL63 (PCR) Enterobacteriac sp PCR E. cloacae complex PCR Enterococcus sp PCR E. coli (PCR) H. influenzae (PCR) Human Metapneumovir PCR Influenza A (H1) PCR Influ A (H1N1/09) PCR Influenza A (H3) PCR Influenza A Untype (PCR) Influenza Type B (PCR) Klebsiella oxytoca PCR Klebsiella pneumoniae List. monocytogenes PCR M.pneumoniae DNA (PCR) N. meningitidis (PCR) Parainfluenza 1 (PCR) Parainfluenza 2 (PCR) Parainfluenza 3 (PCR) Parainfluenza 4 (PCR) Proteus species (PCR) RSV (PCR) Entero/Rhino (PCR) Serratia marcescens PCR Staphylococcus sp PCR Staph aureus (PCR) mecA-Methicil Res Gene Streptococcus sp PCR Group A Strep DNA Group B Strep (PCR) Strep pneumoniae (PCR) P. aeruginosa (PCR) Tristian/B-Vanco Res Genes KPC (blaKPC) Detect PCR - Impressions Impressions Abdomen/Pelvis CT 07/23/17 18:45 IMPRESSION: 1. Bilateral lower lobe infiltrates, left greater than right. Trace left pleural effusion is suggested. 2. Findings suggestive of a mild focal colitis involving the distal descending colon. 3. Small to moderate amount of ascites. 4. Advanced aortoiliac atherosclerotic disease. Multifocal stenoses are suggested within the iliac circulation bilaterally, right greater than left, as well as in the distal aorta. D/ / 07/23/2017 19:40:51 Danielito Jeffery MD / zora Interpreting Provider: Danielito Jeffery MD - ABG Interpretation ABG results: ABG ABG pH 7.32 pH Units (7.32-7.45) 07/24/17 05:52 ABG pCO2 59 mmHg (35-45) H 07/24/17 05:52 ABG pO2 61 mmHg (85-104) L 07/24/17 05:52 ABG O2 Saturation 88 % (95-98) L 07/24/17 05:52 PT/INR, D-dimer PT 11.9 Seconds (9.4-12.1) 07/17/17 03:46 D-Dimer 565 ng/mLFEU (0-500) H 07/17/17 03:46 Consult Discharge Plan - Plan Referrals: NONE,PCP [Primary Care Provider] -
[2017-07-24 14:19] LABS: Adenovirus F 40/41 PCR Not detected (Not detect); Astrovirus PCR Not detected (Not detect); C.difficile Toxin A/B by PCR Not detected (Not detect); Campylobacter by PCR Not detected (Not detect); Cryptosporidium by PCR Not detected (Not detect); Cyclospora cayetanensis PCR Not detected (Not detect); E. coli O157 by PCR Not detected (Not detect); Entamoeba histolytica PCR Not detected (Not detect); Enteroaggregative E.coli(EAEC) Not detected (Not detect); Enteropathogenic E.coli(EPEC) Not detected (Not detect); Enterotoxigenic E.coli (ETEC) Not detected (Not detect); Giardia lamblia PCR Not detected (Not detect); Norovirus GI/GII PCR Not detected (Not detect); Plesiomonas shigelloides PCR Not detected (Not detect); Rotavirus A PCR Not detected (Not detect); Salmonella PCR Not detected (Not detect); Sapovirus PCR Not detected (Not detect); Shig/EnteroinvasiveE coli EIEC Not detected (Not detect); Shigalike tox-prod E coli STEC Not detected (Not detect); Vibrio PCR Not detected (Not detect); Vibrio cholerae PCR Not detected (Not detect); Yersinia enterocolitica PCR Not detected (Not detect)
[2017-07-24 18:32] LABS: BUN/Creatinine Ratio 39 (6-26); Blood Urea Nitrogen 26 mg/dL (6-20); Calcium 6.9 mg/dL (8.6-10.3); Carbon Dioxide 29 mEq/L (23-29); Chloride 105 mEq/L (98-107); Glucose 164 mg/dL (70-105); Osmolality,Calculated 298 (280-300); Sodium 140 mEq/L (136-145); eGFR For African Americans > 60 (> 60); eGFR For Non-African Americans > 60 (> 60)
[2017-07-24] MEDS: Potassium Chloride 10 MEQ in 0.9 % Sodium Chloride 100 ML IVPB PRN ×4 (20:22→22:10)
[2017-07-24] MEDS: Vancomycin 500 MG in 0.9 % Sodium Chloride Mini Bag 100 ML IVPB SCH (23:28)
[2017-07-25] MEDS: Ipratropium/Albuterol Neb 3 ML IH SCH ×6 (03:23→23:27)
[2017-07-25 04:28] LABS: Hematocrit 29.5 % (35.3-44.9); Hemoglobin 8.8 g/dL (11.5-15.4); Lymphocytes # 0.4 K/mcL (0.6-4.6); Mean Corpuscular HGB Conc 29.8 g/dL (31.6-35.5); Mean Corpuscular Hemoglobin 26.7 pg (28.0-33.3); Mean Corpuscular Volume 89.7 fL (83.0-100.0); Mean Platelet Volume 12.9 fL (9.4-12.4); Nucleated Red Blood Cells 0.2 /100 WBC (0); Platelet Count 134 K/mcL (140-400); Red Blood Count 3.29 M/mcL (3.82-4.97)
[2017-07-25 04:30] LABS: VBG Ionized Calcium 1.03 mmol/L (1.15-1.35)
[2017-07-25 04:38] LABS: BUN/Creatinine Ratio 38 (6-26); Blood Urea Nitrogen 29 mg/dL (6-20); Calcium 7.8 mg/dL (8.6-10.3); Carbon Dioxide 34 mEq/L (23-29); Chloride 101 mEq/L (98-107); Glucose 169 mg/dL (70-105); Magnesium 1.6 mg/dL (1.6-2.6); Osmolality,Calculated 300 (280-300); Phosphorous 3.2 mg/dL (2.7-4.5); Potassium 3.5 mEq/L (3.5-5.1); Sodium 140 mEq/L (136-145); eGFR For African Americans > 60 (> 60); eGFR For Non-African Americans > 60 (> 60)
[2017-07-25] MEDS: Lacri-Lube 3.5 GM TUBE BOTH EYES SCH ×5 (04:38→20:52)
[2017-07-25] MEDS: Piperacillin/Tazobactam 3.375 GM in 0.9 % Sodium Chloride Mini Bag 100 ML IVPB SCH ×3 (04:39→20:49)
[2017-07-25] MEDS: Insulin LISPRO 300 UNITS/3 ML VIAL SQ SCH ×5 (04:40→20:52)
[2017-07-25 04:58] LABS: ABG Base Excess 9 mEq/L (-2 to 3); ABG HCO3 36 mEq/L (21-27); ABG Oxygen Saturation 97 % (95-98); ABG PCO2 68 mmHg (35-45); ABG PH 7.33 pH Units (7.32-7.45); ABG PO2 99 mmHg (85-104); ABG TCO2 38 mEq/L (20-26); Blood Gas Modality VC; Blood Gas PEEP 5 cm H2O; Blood Gas Respiration Rate 14; Blood Gas VT 440 cc
[2017-07-25] MEDS: *HR* Heparin 5,000 UNIT/ML VIAL SQ SCH ×2 (05:03→17:55)
[2017-07-25 05:10] LABS: Monocytes # 0.4 K/mcL (0.0-1.3); Neutrophils # 17.3 K/mcL (1.6-8.9); Platelet Estimate Slight Decrease (Normal); Toxic Granulation Present (Not Present)
[2017-07-25] MEDS: Potassium Chloride 10 MEQ in 0.9 % Sodium Chloride 100 ML IVPB PRN ×4 (05:41→07:22)
[2017-07-25] MEDS: Dexmedetomidine HCl 400 MCG/100 ML MLS IVC SCH ×2 (06:19→21:25)
[2017-07-25] MEDS: Budesonide/Formoterol 160/4.5 MDI IH SCH ×2 (07:25→19:28)
--- NOTE | 2017-07-25 07:36 | Palliative Progress Note ---
Date of Encounter: 07/25/17 Time of Encounter: 07:10 - Assessment and plan (1) Acute and chronic respiratory failure with hypercapnia Current Visit: No Status: Resolved Assessment and plan: Patient on ventilator. Paralytics, now been stopped. Patient is still sedated on vent plans were weaning per ICU team. (2) Encephalopathy Current Visit: No Status: Resolved Assessment and plan: We will need to evaluate after the patient is off sedation for the ventilator. Plan per intensive care team (3) Goals of care, counseling/discussion Current Visit: Yes Status: Acute Assessment and plan: Patient is still full code, nurse practitioner has been in contact with patient' s son Kiet. Spoke with infectious disease yesterday, they feel that the patient will require 24-48 hours from then she is doing. Clear path will hopefully be apparent over the course of the weekend. Patient has rallied from many episodes like this in the past, and the family therefore has expectations of the same. There will be no palliative coverage over the course the weekend palliative we will follow up on Friday. (4) Gram-positive bacteremia Current Visit: Yes Status: Acute Assessment and plan: On antibiotics for this as well as Tamiflu for flu plan per hospitalist/ market analyst team. Infectious disease is also on board, they feel the patient will require another 24-48 hours to see how she is doing. - Time Spent With Patient Total time spent is greater than 50% in coordination of care (as documented) at patient's floor/unit and/or counseling patient: - Subjective Interval history: No acute events noted last night. The patient is off pressors and has had the paralytics stopped. Patient is still sedated on vent and appears comfortable - Constitutional Vitals: Abnormal lab results WBC 18.0 K/mcL (4.3-11.1) H 07/25/17 03:50 RBC 3.29 M/mcL (3.82-4.97) L 07/25/17 03:50 Hgb 8.8 g/dL (11.5-15.4) L 07/25/17 03:50 Hct 29.5 % (35.3-44.9) L 07/25/17 03:50 MCH 26.7 pg (28.0-33.3) L 07/25/17 03:50 MCHC 29.8 g/dL (31.6-35.5) L 07/25/17 03:50 RDW 15.0 % (11.5-14.5) H 07/25/17 03:50 Plt Count 134 K/mcL (140-400) L 07/25/17 03:50 MPV 12.9 fL (9.4-12.4) H 07/25/17 03:50 Immature Gran % 4.9 % (0-4) H 07/23/17 03:27 Band Neutrophils % 16.0 % (0-4) H 07/25/17 03:50 Neutrophils # 17.3 K/mcL (1.6-8.9) H 07/25/17 03:50 Lymphocytes # 0.4 K/mcL (0.6-4.6) L 07/25/17 03:50 Nucleated RBCs/100 WBC 0.2 /100 WBC (0) H 07/25/17 03:50 Toxic Granulation Present (Not Present) A 07/25/17 03:50 Platelet Estimate Slight Decrease (Normal) L 07/25/17 03:50 Immature Plt Fraction 15.4 % (1.1-6.1) H 07/21/17 03:40 Hypochromasia Present (Not Present) A 07/23/17 03:27 APTT 66.6 Seconds (26.0-36.0) H 07/20/17 03:41 D-Dimer 565 ng/mLFEU (0-500) H 07/17/17 03:46 Heparin Anti-Xa, Unfract 0.99 IU/mL (0.30-0.70) H 07/18/17 06:00 ABG pCO2 68 mmHg (35-45) H 07/25/17 04:54 ABG HCO3 36 mEq/L (21-27) H 07/25/17 04:54 ABG Total CO2 38 mEq/L (20-26) H 07/25/17 04:54 ABG Base Excess 9 mEq/L (-2 to 3) H 07/25/17 04:54 VBG pH 7.30 pH Units (7.32-7.42) L 07/24/17 08:37 VBG pCO2 61 mmHg (41-51) H 07/24/17 08:37 VBG pO2 132 mmHg (25-50) H 07/24/17 08:37 VBG HCO3 30 mEq/L (21-27) H 07/24/17 08:37 Carbon Dioxide 34 mEq/L (23-29) H 07/25/17 03:50 BUN 29 mg/dL (6-20) H 07/25/17 03:50 BUN/Creatinine Ratio 38 (6-26) H 07/25/17 03:50 Glucose 169 mg/dL (70-105) H 07/25/17 03:50 POC Glucose 167 (58-89) H 07/25/17 03:49 Calcium 7.8 mg/dL (8.6-10.3) L 07/25/17 03:50 Venous Ioniz Calcium 1.03 mmol/L (1.15-1.35) L 07/25/17 04:27 AST 161 Units/L (13-39) H 07/23/17 14:30 ALT 332 Units/L (7-52) H 07/23/17 14:30 Troponin I 0.69 ng/mL (< 0.04) H* 07/18/17 04:00 B-Natriuretic Peptide 207 pg/mL (Less than 100) H 07/17/17 15:27 Serum Total Protein 5.4 g/dL (6.4-8.9) L 07/23/17 14:30 Albumin 2.4 g/dL (3.5-5.7) L 07/23/17 14:30 Albumin/Globulin Ratio 0.8 (1.1-2.2) L 07/23/17 14:30 Ur Specific [place] 1.029 (1.010-1.025) H 07/17/17 05:45 Influenza Type B (PCR) DETECTED (Not Detect) A 07/23/17 14:30 Staphylococcus sp PCR DETECTED (Not Detect) A 07/22/17 11:05 Staph aureus (PCR) DETECTED (Not Detect) A 07/22/17 11:05 mecA-Methicil Res Gene DETECTED (Not Detect) A 07/22/17 11:05 General appearance: Present: no acute distress - Head Head exam: Present: atraumatic, normal inspection - Eye Eye exam: Present: normal appearance - Respiratory Respiratory exam: Present: wheezes - Cardiovascular Cardiovascular exam: Present: RRR - GI/Abdominal GI/Abdominal exam: Present: hypoactive bowel sounds, soft. Absent: tenderness - Extremities Exam Extremities exam: Absent: tenderness - Neurological Exam Neurological exam: Present: altered. Absent: alert - Psychiatric Psychiatric exam: Absent: agitated, anxious - Skin Skin exam: Present: dry, warm Palliative Quality Palliative Quality: Screen for Code Status: Yes, Screen for Goals of Care: NA, Screen for Pain: Yes, If Pain Regimen Started, Initiate Bowel Regimen: NA, Screen for Nausea/Vomitting: NA Code Status: 07/17/17 11:52 FULL [Resuscitation Status: Active] [RES] Routine Comment: Resuscitation Status: Full Code - Labs CBC & Chem 7: 07/25/17 03:50 07/25/17 03:50 Labs: Laboratory Results - last 24 hr 07/24/17 07/24/17 07/24/17 08:00 08:07 08:37 WBC RBC Hgb Hct MCV MCH MCHC RDW Plt Count MPV Seg Neutrophils % Band Neutrophils % Lymphocytes % Monocytes % Neutrophils # Lymphocytes # Monocytes # Nucleated RBCs/100 WBC Toxic Granulation Platelet Estimate Sample Site ABG pH ABG pCO2 ABG pO2 ABG HCO3 ABG Total CO2 ABG O2 Saturation ABG Base Excess David Test VBG pH 7.30 L VBG pCO2 61 H VBG pO2 132 H VBG HCO3 30 H Respiration Rate O2 Delivery Device Blood Gas Modality Inspired O2 Tidal Volume PEEP Sodium Potassium Chloride Carbon Dioxide BUN Creatinine Est GFR ( Amer) Est GFR (Non-Af Amer) BUN/Creatinine Ratio Glucose POC Glucose 183 H Calculated Osmolality Calcium Venous Ioniz Calcium 1.05 L Phosphorus 2.7 Magnesium 2.1 Stl C. cayetanensis PCR Stool Rotavirus A PCR Stl Adenov F 40/41 PCR Stool Astrovirus (PCR) Stool Campylobacter PCR Stl C. diff Tox A/B PCR Stool Cryptosporidium PCR Stl Sh Tox Pr E STEC PCR Stool E coli O157 PCR Stl Enterotoxigenic E PCR Stool EPEC (PCR) Stool EAEC (PCR) Stl E. histolytica PCR Stool Giardia Lamblia PCR Stool Salmonella PCR Stool Sapovirus (PCR) Stl P. shigelloides PCR Stl Shigella/EIEC PCR St Y.enterocolitica PCR Stool Vibrio (PCR) Stl Vibrio cholerae PCR Stl Norovirus GI/GII PCR Stl GI Panel (PCR) Com Random Vancomycin 07/24/17 07/24/17 07/24/17 11:45 11:49 13:50 WBC RBC Hgb Hct MCV MCH MCHC RDW Plt Count MPV Seg Neutrophils % Band Neutrophils % Lymphocytes % Monocytes % Neutrophils # Lymphocytes # Monocytes # Nucleated RBCs/100 WBC Toxic Granulation Platelet Estimate Sample Site ABG pH ABG pCO2 ABG pO2 ABG HCO3 ABG Total CO2 ABG O2 Saturation ABG Base Excess David Test VBG pH VBG pCO2 VBG pO2 VBG HCO3 Respiration Rate O2 Delivery Device Blood Gas Modality Inspired O2 Tidal Volume PEEP Sodium Potassium Chloride Carbon Dioxide BUN Creatinine Est GFR ( Amer) Est GFR (Non-Af Amer) BUN/Creatinine Ratio Glucose POC Glucose 185 H Calculated Osmolality Calcium Venous Ioniz Calcium Phosphorus Magnesium Stl C. cayetanensis PCR Not detected Stool Rotavirus A PCR Not detected Stl Adenov F 40/41 PCR Not detected Stool Astrovirus (PCR) Not detected Stool Campylobacter PCR Not detected Stl C. diff Tox A/B PCR Not detected Stool Cryptosporidium PCR Not detected Stl Sh Tox Pr E STEC PCR Not detected Stool E coli O157 PCR Not detected Stl Enterotoxigenic E PCR Not detected Stool EPEC (PCR) Not detected Stool EAEC (PCR) Not detected Stl E. histolytica PCR Not detected Stool Giardia Lamblia PCR Not detected Stool Salmonella PCR Not detected Stool Sapovirus (PCR) Not detected Stl P. shigelloides PCR Not detected Stl Shigella/EIEC PCR Not detected St Y.enterocolitica PCR Not detected Stool Vibrio (PCR) Not detected Stl Vibrio cholerae PCR Not detected Stl Norovirus GI/GII PCR Not detected Stl GI Panel (PCR) Com See below Random Vancomycin 21.4 07/24/17 07/24/17 07/24/17 15:09 17:30 19:51 WBC RBC Hgb Hct MCV MCH MCHC RDW Plt Count MPV Seg Neutrophils % Band Neutrophils % Lymphocytes % Monocytes % Neutrophils # Lymphocytes # Monocytes # Nucleated RBCs/100 WBC Toxic Granulation Platelet Estimate Sample Site ABG pH ABG pCO2 ABG pO2 ABG HCO3 ABG Total CO2 ABG O2 Saturation ABG Base Excess David Test VBG pH VBG pCO2 VBG pO2 VBG HCO3 Respiration Rate O2 Delivery Device Blood Gas Modality Inspired O2 Tidal Volume PEEP Sodium 140 Potassium 3.0 L D Chloride 105 Carbon Dioxide 29 BUN 26 H Creatinine 0.67 Est GFR ( Amer) > 60 Est GFR (Non-Af Amer) > 60 BUN/Creatinine Ratio 39 H Glucose 164 H POC Glucose 185 H 178 H Calculated Osmolality 298 Calcium 6.9 L Venous Ioniz Calcium Phosphorus Magnesium Stl C. cayetanensis PCR Stool Rotavirus A PCR Stl Adenov F 40/41 PCR Stool Astrovirus (PCR) Stool Campylobacter PCR Stl C. diff Tox A/B PCR Stool Cryptosporidium PCR Stl Sh Tox Pr E STEC PCR Stool E coli O157 PCR Stl Enterotoxigenic E PCR Stool EPEC (PCR) Stool EAEC (PCR) Stl E. histolytica PCR Stool Giardia Lamblia PCR Stool Salmonella PCR Stool Sapovirus (PCR) Stl P. shigelloides PCR Stl Shigella/EIEC PCR St Y.enterocolitica PCR Stool Vibrio (PCR) Stl Vibrio cholerae PCR Stl Norovirus GI/GII PCR Stl GI Panel (PCR) Com Random Vancomycin 07/24/17 07/25/17 07/25/17 23:36 03:49 03:50 WBC RBC Hgb Hct MCV MCH MCHC RDW Plt Count MPV Seg Neutrophils % Band Neutrophils % Lymphocytes % Monocytes % Neutrophils # Lymphocytes # Monocytes # Nucleated RBCs/100 WBC Toxic Granulation Platelet Estimate Sample Site ABG pH ABG pCO2 ABG pO2 ABG HCO3 ABG Total CO2 ABG O2 Saturation ABG Base Excess David Test VBG pH VBG pCO2 VBG pO2 VBG HCO3 Respiration Rate O2 Delivery Device Blood Gas Modality Inspired O2 Tidal Volume PEEP Sodium Potassium Chloride Carbon Dioxide BUN Creatinine Est GFR ( Amer) Est GFR (Non-Af Amer) BUN/Creatinine Ratio Glucose POC Glucose 183 H 167 H Calculated Osmolality Calcium Venous Ioniz Calcium Phosphorus 3.2 Magnesium 1.6 Stl C. cayetanensis PCR Stool Rotavirus A PCR Stl Adenov F PCR Stool Astrovirus (PCR) Stool Campylobacter PCR Stl C. diff Tox A/B PCR Stool Cryptosporidium PCR Stl Sh Tox Pr E STEC PCR Stool E coli O157 PCR Stl Enterotoxigenic E PCR Stool EPEC (PCR) Stool EAEC (PCR) Stl E. histolytica PCR Stool Giardia Lamblia PCR Stool Salmonella PCR Stool Sapovirus (PCR) Stl P. shigelloides PCR Stl Shigella/EIEC PCR St Y.enterocolitica PCR Stool Vibrio (PCR) Stl Vibrio cholerae PCR Stl Norovirus GI/GII PCR Stl GI Panel (PCR) Com Random Vancomycin 07/25/17 07/25/17 07/25/17 03:50 03:50 04:27 WBC 18.0 H RBC 3.29 L Hgb 8.8 L Hct 29.5 L MCV 89.7 MCH 26.7 L MCHC 29.8 L RDW 15.0 H Plt Count 134 L MPV 12.9 H Seg Neutrophils % 80.0 Band Neutrophils % 16.0 H Lymphocytes % 2.0 Monocytes % 2.0 Neutrophils # 17.3 H Lymphocytes # 0.4 L Monocytes # 0.4 Nucleated RBCs/100 WBC 0.2 H Toxic Granulation Present A Platelet Estimate Slight Decrease L Sample Site ABG pH ABG pCO2 ABG pO2 ABG HCO3 ABG Total CO2 ABG O2 Saturation ABG Base Excess David Test VBG pH VBG pCO2 VBG pO2 VBG HCO3 Respiration Rate O2 Delivery Device Blood Gas Modality Inspired O2 Tidal Volume PEEP Sodium 140 Potassium 3.5 Chloride 101 Carbon Dioxide 34 H BUN 29 H Creatinine 0.77 Est GFR ( Amer) > 60 Est GFR (Non-Af Amer) > 60 BUN/Creatinine Ratio 38 H Glucose 169 H POC Glucose Calculated Osmolality 300 Calcium 7.8 L Venous Ioniz Calcium 1.03 L Phosphorus Magnesium Stl C. cayetanensis PCR Stool Rotavirus A PCR Stl Adenov F 40/41 PCR Stool Astrovirus (PCR) Stool Campylobacter PCR Stl C. diff Tox A/B PCR Stool Cryptosporidium PCR Stl Sh Tox Pr E STEC PCR Stool E coli O157 PCR Stl Enterotoxigenic E PCR Stool EPEC (PCR) Stool EAEC (PCR) Stl E. histolytica PCR Stool Giardia Lamblia PCR Stool Salmonella PCR Stool Sapovirus (PCR) Stl P. shigelloides PCR Stl Shigella/EIEC PCR St Y.enterocolitica PCR Stool Vibrio (PCR) Stl Vibrio cholerae PCR Stl Norovirus GI/GII PCR Stl GI Panel (PCR) Com Random Vancomycin 07/25/17 04:54 WBC RBC Hgb Hct MCV MCH MCHC RDW Plt Count MPV Seg Neutrophils % Band Neutrophils % Lymphocytes % Monocytes % Neutrophils # Lymphocytes # Monocytes # Nucleated RBCs/100 WBC Toxic Granulation Platelet Estimate Sample Site R Radial ABG pH 7.33 ABG pCO2 68 H ABG pO2 99 ABG HCO3 36 H ABG Total CO2 38 H ABG O2 Saturation 97 ABG Base Excess 9 H David Test N/A VBG pH VBG pCO2 VBG pO2 VBG HCO3 Respiration Rate 14 O2 Delivery Device Adult Vent Blood Gas Modality VC Inspired O2 40.0 Tidal Volume 440 PEEP 5 Sodium Potassium Chloride Carbon Dioxide BUN Creatinine Est GFR ( Amer) Est GFR (Non-Af Amer) BUN/Creatinine Ratio Glucose POC Glucose Calculated Osmolality Calcium Venous Ioniz Calcium Phosphorus Magnesium Stl C. cayetanensis PCR Stool Rotavirus A PCR Stl Adenov F 40 PCR Stool Astrovirus (PCR) Stool Campylobacter PCR Stl C. diff Tox A/B PCR Stool Cryptosporidium PCR Stl Sh Tox Pr E STEC PCR Stool E coli O157 PCR Stl Enterotoxigenic E PCR Stool EPEC (PCR) Stool EAEC (PCR) Stl E. histolytica PCR Stool Giardia Lamblia PCR Stool Salmonella PCR Stool Sapovirus (PCR) Stl P. shigelloides PCR Stl Shigella/EIEC PCR St Y.enterocolitica PCR Stool Vibrio (PCR) Stl Vibrio cholerae PCR Stl Norovirus GI/GII PCR Stl GI Panel (PCR) Com Random Vancomycin - Impressions Impressions Abdomen/Pelvis CT 07/23/17 18:45 IMPRESSION: 1. Bilateral lower lobe infiltrates, left greater than right. Trace left pleural effusion is suggested. 2. Findings suggestive of a mild focal colitis involving the distal descending colon. 3. Small to moderate amount of ascites. 4. Advanced aortoiliac atherosclerotic disease. Multifocal stenoses are suggested within the iliac circulation bilaterally, right greater than left, as well as in the distal aorta. D/ / 07/23/2017 19:40:51 Danielito Jeffery MD / [email or web address] Interpreting Provider: Danielito Jeffery MD - ABG Interpretation ABG results: ABG ABG pH 7.33 pH Units (7.32-7.45) 07/25/17 04:54 ABG pCO2 68 mmHg (35-45) H 07/25/17 04:54 ABG pO2 99 mmHg (85-104) 07/25/17 04:54 ABG O2 Saturation 97 % (95-98) 07/25/17 04:54 PT/INR, D-dimer PT 11.9 Seconds (9.4-12.1) 07/17/17 03:46 D-Dimer 565 ng/mLFEU (0-500) H 07/17/17 03:46 Consult Discharge Plan - Plan Referrals: NONE,PCP [Primary Care Provider] -
[2017-07-25] MEDS: FentaNYL (PF) 1,000 MCG in 0.9 % Sodium Chloride 80 ML IVC SCH ×3 (07:45→22:00)
[2017-07-25] MEDS: Bisacodyl 10 MG RECTAL SUPPOSITORY RC SCH (08:30)
[2017-07-25] MEDS: MethylPREDNISolone 40 MG/ML VIAL IVP SCH ×3 (08:36→23:41)
[2017-07-25] MEDS: Nicotine 14 MG PATCH.TD24 TD SCH (08:37)
[2017-07-25] MEDS: Nystatin SUSP 5 ML UD.LIQ PO SCH ×4 (08:37→20:50)
[2017-07-25] MEDS: Chlorhexidine Rinse 15 ML MOUTHWASH MM SCH ×2 (08:37→20:50)
--- NOTE | 2017-07-25 08:42 | Infectious Disease Progress No ---
Date of Encounter: 07/25/17 Time of Encounter: 08:42 - Assessment and Plan (1) Septic shock due to methicillin resistant Staphylococcus aureus Current Visit: Yes Status: Acute Patient had WBC 16.9, hypotension, increased oxygen requirements on mechanical ventilation Organism: MRSA in sputum 07/25: WBC elevated to 18, patients respiratory status more diminished compared to the last few days with increased work effort. Continues to clinically meet sepsis criteria. Sputum culture 07/19/2017 positive for MRSA Blood culture 07/22/2017 positive for MRSA Sputum culture 07/22/2017 positive for MRSA Respiratory infectious panel positive for influenza B -TYE recommended with MRSA bacteremia Plan: - Continue vancomycin pharmacy to dose total 4 weeks, continue Zosyn, continue Tamiflu - Blood culture pending for central venous line (2) Ventilator-associated bacterial pneumonia Current Visit: Yes Status: Acute Patient required mechanical ventilation since 07/17/17, initial sputum culture negative, sputum culture from 07/19 and 07/22 positive for MRSA - Complicated risk factors include severe COPD, mechanical ventilation - CXR 07/22 concerning for Left lower lobe infiltrate, CT ABD/Pelvis- Bilateral lower lobe infiltrates, left greater than right. Trace left pleural effusion is suggested. CrCl: 72 - Respiratory infectious panel- positive for influenza B, MecA gene and staph aureus, Staphylococcus sp - Legionella urine antigen- NEGATIVE - peripheral smear- pending - Urine strep pneumo- pending Plan: - IV Vancomycin pharmacy to dose (Goal Trough 15) for 4wks (Through August 11) ( Day#5) - Tamiflu 75mg BID total 5 days- Day 2 (3) Acute and chronic respiratory failure with hypercapnia Current Visit: No Status: Chronic Acute on chronic respiratory failure in a patient with known Severe COPD on hospice care. Respiratory infectious panel positive for influenza B, Sputum culture- MRSA growth. CXR and CT abd/pelvis demonstrate Bilateral lobe infiltrates. - Continue mechanical ventilation management per ICU team - Continue breathing treatments and IV steroids for management. - Continue Antibiotic choice as discussed above. (4) Pansinusitis Current Visit: Yes Status: Acute Pansinusitis and mastoiditis identified on head CT performed 07/22/17 - Organism unknown - Primary team consult to ENT for further evaluation and management. - Antibiotic coverage for MRSA as discussed above. - Continue IV Zosyn per ENT ( Currently day 5) Qualifiers: Chronicity: chronic Qualified Code(s): J32.4 - Chronic pansinusitis (5) Thrombocytopenia Current Visit: Yes Status: Acute Persistent stable thrombocytopenia, in the setting of acute illness. - Continue to monitor daily. - Continue to avoid Zyvox as it may worsen thrombocytopenia. (6) Leukocytosis Current Visit: Yes Status: Acute WBC 18, elevated during treatment for MRSA pneumonia, bacteremia. Clinically not much improvement in patient's condition. Suspect likely secondary to acute illness and stress. - Elevation in the setting of IV steroids, influenza B, MRSA pneumonia, gram- positive bacteremia and colitis - Continue to monitor daily. Qualifiers: Leukocytosis type: unspecified Qualified Code(s): D72.829 - Elevated white blood cell count, unspecified (7) MRSA bacteremia Current Visit: Yes Status: Acute Acutely ill 57-year-old female intubated sedated, on mechanical ventilation. - Blood culture 1 positive for MRSA - Sputum cultures positive for MRSA - PCR + MecA gene, staph species - Blood culture from Central line ordered Plan: - Vancomycin pharmacy to dose (trough 15) total 4wks ( anticipated stop date August 18) - Day# 5 (8) Persistent fever Current Visit: Yes Status: Acute Persistent fever likely secondary to underlying respiratory infection and bacteremia. - Afebrile for 48 hours - Continue treatment for influenza B, MRSA pneumonia, gram-positive bacteremia and colitis (9) Influenza B Current Visit: Yes Status: Acute RIP positive for Influenza B - Unsure if this was the cause for initial decompensation followed by superimposed MRSA pneumonia as no influenza swab or RIP collected at the time of admission. Plan: Tamiflu 75mg twice a day total 5 days- Day 2 (10) Colitis Current Visit: Yes Status: Acute Patient intubated, sedated with distended abdomen now with liquid stool with rectal tube. - CT abdomen/pelvis demonstrates findings suggestive of mild focal colitis involving the distal descending colon. - Continue IV Zosyn Q8hrs total 7 days ( Day# 5) - Metronidazole added (day 2) - Subjective Interval history: Patient continues to be intubated and sedated, remains stable overnight. No acute changes per nursing. She is responsive to vocal commands and moves her fingers and her toes and nods her head. Patient had difficulty with CPAP trial this morning, continues on mechanical ventilation assist control. Infect Dis PN-Objective Data - Labs CBC & Chem 7: 07/25/17 03:50 07/25/17 03:50 Labs: Laboratory Results - last 24 hr 07/24/17 07/24/17 07/24/17 08:00 08:37 11:45 WBC RBC Hgb Hct MCV MCH MCHC RDW Plt Count MPV Seg Neutrophils % Band Neutrophils % Lymphocytes % Monocytes % Neutrophils # Lymphocytes # Monocytes # Nucleated RBCs/100 WBC Toxic Granulation Platelet Estimate Sample Site ABG pH ABG pCO2 ABG pO2 ABG HCO3 ABG Total CO2 ABG O2 Saturation ABG Base Excess David Test VBG pH 7.30 L VBG pCO2 61 H VBG pO2 132 H VBG HCO3 30 H Respiration Rate O2 Delivery Device Blood Gas Modality Inspired O2 Tidal Volume PEEP Sodium Potassium Chloride Carbon Dioxide BUN Creatinine Est GFR ( Amer) Est GFR (Non-Af Amer) BUN/Creatinine Ratio Glucose POC Glucose Calculated Osmolality Calcium Venous Ioniz Calcium 1.05 L Phosphorus 2.7 Magnesium 2.1 Stl C. cayetanensis PCR Not detected Stool Rotavirus A PCR Not detected Stl Adenov F 40/41 PCR Not detected Stool Astrovirus (PCR) Not detected Stool Campylobacter PCR Not detected Stl C. diff Tox A/B PCR Not detected Stool Cryptosporidium PCR Not detected Stl Sh Tox Pr E STEC PCR Not detected Stool E coli O157 PCR Not detected Stl Enterotoxigenic E PCR Not detected Stool EPEC (PCR) Not detected Stool EAEC (PCR) Not detected Stl E. histolytica PCR Not detected Stool Giardia Lamblia PCR Not detected Stool Salmonella PCR Not detected Stool Sapovirus (PCR) Not detected Stl P. shigelloides PCR Not detected Stl Shigella/EIEC PCR Not detected St Y.enterocolitica PCR Not detected Stool Vibrio (PCR) Not detected Stl Vibrio cholerae PCR Not detected Stl Norovirus GI/GII PCR Not detected Stl GI Panel (PCR) Com See below Random Vancomycin 07/24/17 07/24/17 07/24/17 11:49 13:50 15:09 WBC RBC Hgb Hct MCV MCH MCHC RDW Plt Count MPV Seg Neutrophils % Band Neutrophils % Lymphocytes % Monocytes % Neutrophils # Lymphocytes # Monocytes # Nucleated RBCs/100 WBC Toxic Granulation Platelet Estimate Sample Site ABG pH ABG pCO2 ABG pO2 ABG HCO3 ABG Total CO2 ABG O2 Saturation ABG Base Excess David Test VBG pH VBG pCO2 VBG pO2 VBG HCO3 Respiration Rate O2 Delivery Device Blood Gas Modality Inspired O2 Tidal Volume PEEP Sodium Potassium Chloride Carbon Dioxide BUN Creatinine Est GFR ( Amer) Est GFR (Non-Af Amer) BUN/Creatinine Ratio Glucose POC Glucose 185 H 185 H Calculated Osmolality Calcium Venous Ioniz Calcium Phosphorus Magnesium Stl C. cayetanensis PCR Stool Rotavirus A PCR Stl Adenov F 40/41 PCR Stool Astrovirus (PCR) Stool Campylobacter PCR Stl C. diff Tox A/B PCR Stool Cryptosporidium PCR Stl Sh Tox Pr E STEC PCR Stool E coli O157 PCR Stl Enterotoxigenic E PCR Stool EPEC (PCR) Stool EAEC (PCR) Stl E. histolytica PCR Stool Giardia Lamblia PCR Stool Salmonella PCR Stool Sapovirus (PCR) Stl P. shigelloides PCR Stl Shigella/EIEC PCR St Y.enterocolitica PCR Stool Vibrio (PCR) Stl Vibrio cholerae PCR Stl Norovirus GI/GII PCR Stl GI Panel (PCR) Com Random Vancomycin 21.4 07/24/17 07/24/17 07/24/17 17:30 19:51 23:36 WBC RBC Hgb Hct MCV MCH MCHC RDW Plt Count MPV Seg Neutrophils % Band Neutrophils % Lymphocytes % Monocytes % Neutrophils # Lymphocytes # Monocytes # Nucleated RBCs/100 WBC Toxic Granulation Platelet Estimate Sample Site ABG pH ABG pCO2 ABG pO2 ABG HCO3 ABG Total CO2 ABG O2 Saturation ABG Base Excess David Test VBG pH VBG pCO2 VBG pO2 VBG HCO3 Respiration Rate O2 Delivery Device Blood Gas Modality Inspired O2 Tidal Volume PEEP Sodium 140 Potassium 3.0 L D Chloride 105 Carbon Dioxide 29 BUN 26 H Creatinine 0.67 Est GFR ( Amer) > 60 Est GFR (Non-Af Amer) > 60 BUN/Creatinine Ratio 39 H Glucose 164 H POC Glucose 178 H 183 H Calculated Osmolality 298 Calcium 6.9 L Venous Ioniz Calcium Phosphorus Magnesium Stl C. cayetanensis PCR Stool Rotavirus A PCR Stl Adenov F 40 PCR Stool Astrovirus (PCR) Stool Campylobacter PCR Stl C. diff Tox A/B PCR Stool Cryptosporidium PCR Stl Sh Tox Pr E STEC PCR Stool E coli O157 PCR Stl Enterotoxigenic E PCR Stool EPEC (PCR) Stool EAEC (PCR) Stl E. histolytica PCR Stool Giardia Lamblia PCR Stool Salmonella PCR Stool Sapovirus (PCR) Stl P. shigelloides PCR Stl Shigella/EIEC PCR St Y.enterocolitica PCR Stool Vibrio (PCR) Stl Vibrio cholerae PCR Stl Norovirus GI/GII PCR Stl GI Panel (PCR) Com Random Vancomycin 07/25/17 07/25/17 07/25/17 03:49 03:50 03:50 WBC 18.0 H RBC 3.29 L Hgb 8.8 L Hct 29.5 L MCV 89.7 MCH 26.7 L MCHC 29.8 L RDW 15.0 H Plt Count 134 L MPV 12.9 H Seg Neutrophils % 80.0 Band Neutrophils % 16.0 H Lymphocytes % 2.0 Monocytes % 2.0 Neutrophils # 17.3 H Lymphocytes # 0.4 L Monocytes # 0.4 Nucleated RBCs/100 WBC 0.2 H Toxic Granulation Present A Platelet Estimate Slight Decrease L Sample Site ABG pH ABG pCO2 ABG pO2 ABG HCO3 ABG Total CO2 ABG O2 Saturation ABG Base Excess David Test VBG pH VBG pCO2 VBG pO2 VBG HCO3 Respiration Rate O2 Delivery Device Blood Gas Modality Inspired O2 Tidal Volume PEEP Sodium Potassium Chloride Carbon Dioxide BUN Creatinine Est GFR ( Amer) Est GFR (Non-Af Amer) BUN/Creatinine Ratio Glucose POC Glucose 167 H Calculated Osmolality Calcium Venous Ioniz Calcium Phosphorus 3.2 Magnesium 1.6 Stl C. cayetanensis PCR Stool Rotavirus A PCR Stl Adenov F 40/41 PCR Stool Astrovirus (PCR) Stool Campylobacter PCR Stl C. diff Tox A/B PCR Stool Cryptosporidium PCR Stl Sh Tox Pr E STEC PCR Stool E coli O157 PCR Stl Enterotoxigenic E PCR Stool EPEC (PCR) Stool EAEC (PCR) Stl E. histolytica PCR Stool Giardia Lamblia PCR Stool Salmonella PCR Stool Sapovirus (PCR) Stl P. shigelloides PCR Stl Shigella/EIEC PCR St Y.enterocolitica PCR Stool Vibrio (PCR) Stl Vibrio cholerae PCR Stl Norovirus GI/GII PCR Stl GI Panel (PCR) Com Random Vancomycin 07/25/17 07/25/17 07/25/17 03:50 04:27 04:54 WBC RBC Hgb Hct MCV MCH MCHC RDW Plt Count MPV Seg Neutrophils % Band Neutrophils % Lymphocytes % Monocytes % Neutrophils # Lymphocytes # Monocytes # Nucleated RBCs/100 WBC Toxic Granulation Platelet Estimate Sample Site R Radial ABG pH 7.33 ABG pCO2 68 H ABG pO2 99 ABG HCO3 36 H ABG Total CO2 38 H ABG O2 Saturation 97 ABG Base Excess 9 H David Test N/A VBG pH VBG pCO2 VBG pO2 VBG HCO3 Respiration Rate 14 O2 Delivery Device Adult Vent Blood Gas Modality VC Inspired O2 40.0 Tidal Volume 440 PEEP 5 Sodium 140 Potassium 3.5 Chloride 101 Carbon Dioxide 34 H BUN 29 H Creatinine 0.77 Est GFR ( Amer) > 60 Est GFR (Non-Af Amer) > 60 BUN/Creatinine Ratio 38 H Glucose 169 H POC Glucose Calculated Osmolality 300 Calcium 7.8 L Venous Ioniz Calcium 1.03 L Phosphorus Magnesium Stl C. cayetanensis PCR Stool Rotavirus A PCR Stl Adenov F PCR Stool Astrovirus (PCR) Stool Campylobacter PCR Stl C. diff Tox A/B PCR Stool Cryptosporidium PCR Stl Sh Tox Pr E STEC PCR Stool E coli O157 PCR Stl Enterotoxigenic E PCR Stool EPEC (PCR) Stool EAEC (PCR) Stl E. histolytica PCR Stool Giardia Lamblia PCR Stool Salmonella PCR Stool Sapovirus (PCR) Stl P. shigelloides PCR Stl Shigella/EIEC PCR St Y.enterocolitica PCR Stool Vibrio (PCR) Stl Vibrio cholerae PCR Stl Norovirus GI/GII PCR Stl GI Panel (PCR) Com Random Vancomycin 07/25/17 08:19 WBC RBC Hgb Hct MCV MCH MCHC RDW Plt Count MPV Seg Neutrophils % Band Neutrophils % Lymphocytes % Monocytes % Neutrophils # Lymphocytes # Monocytes # Nucleated RBCs/100 WBC Toxic Granulation Platelet Estimate Sample Site ABG pH ABG pCO2 ABG pO2 ABG HCO3 ABG Total CO2 ABG O2 Saturation ABG Base Excess David Test VBG pH VBG pCO2 VBG pO2 VBG HCO3 Respiration Rate O2 Delivery Device Blood Gas Modality Inspired O2 Tidal Volume PEEP Sodium Potassium Chloride Carbon Dioxide BUN Creatinine Est GFR ( Amer) Est GFR (Non-Af Amer) BUN/Creatinine Ratio Glucose POC Glucose 142 H Calculated Osmolality Calcium Venous Ioniz Calcium Phosphorus Magnesium Stl C. cayetanensis PCR Stool Rotavirus A PCR Stl Adenov F PCR Stool Astrovirus (PCR) Stool Campylobacter PCR Stl C. diff Tox A/B PCR Stool Cryptosporidium PCR Stl Sh Tox Pr E STEC PCR Stool E coli O157 PCR Stl Enterotoxigenic E PCR Stool EPEC (PCR) Stool EAEC (PCR) Stl E. histolytica PCR Stool Giardia Lamblia PCR Stool Salmonella PCR Stool Sapovirus (PCR) Stl P. shigelloides PCR Stl Shigella/EIEC PCR St Y.enterocolitica PCR Stool Vibrio (PCR) Stl Vibrio cholerae PCR Stl Norovirus GI/GII PCR Stl GI Panel (PCR) Com Random Vancomycin Cultures: Cultures 07/22/17 20:44 Sputum Culture - Final Sputum Methicillin Resistant S.aureus 07/22/17 11:05 Blood Culture - Final Peripheral Venipuncture Methicillin Resistant S.aureus 07/22/17 11:00 Blood Culture - Preliminary Peripheral Venipuncture No growth. 07/23/17 14:30 Legionella Antigen - Final Urine,Catheterized Streptococcus pneumoniae Antigen (M - Final 07/19/17 16:12 Sputum Culture - Final Sputum Methicillin Resistant S.aureus 07/17/17 15:27 Sputum Culture - Final Sputum Serology 07/24/17 07/23/17 07/22/17 Range/Units 11:45 14:30 11:05 Stl C. cayetanensis PCR Not detected (Not detect) Stool Rotavirus A PCR Not detected (Not detect) Stl Adenov F 40/41 PCR Not detected (Not detect) Stool Astrovirus (PCR) Not detected (Not detect) Stool Campylobacter PCR Not detected (Not detect) Stl C. diff Tox A/B PCR Not detected (Not detect) Stool Cryptosporidium PCR Not detected (Not detect) Stl Sh Tox Pr E STEC PCR Not detected (Not detect) Stool E coli O157 PCR Not detected (Not detect) Stl Enterotoxigenic E PCR Not detected (Not detect) Stool EPEC (PCR) Not detected (Not detect) Stool EAEC (PCR) Not detected (Not detect) Stl E. histolytica PCR Not detected (Not detect) Stool Giardia Lamblia PCR Not detected (Not detect) Stool Salmonella PCR Not detected (Not detect) Stool Sapovirus (PCR) Not detected (Not detect) Stl P. shigelloides PCR Not detected (Not detect) Stl Shigella/EIEC PCR Not detected (Not detect) St Y.enterocolitica PCR Not detected (Not detect) Stool Vibrio (PCR) Not detected (Not detect) Stl Vibrio cholerae PCR Not detected (Not detect) Stl Norovirus GI/GII PCR Not detected (Not detect) Stl GI Panel (PCR) Com See below A. baumannii (PCR) Not Detected (Not Detect) Chlamy pneumoniae PCR Not Detected (Not Detect) Adenovirus (PCR) Not Detected (Not Detect) B. pertussis DNA (PCR) Not Detected (Not Detect) B.parapertussis DNA PCR Not Detected (Not Detect) Nayely albicans (PCR) Not Detected (Not Detect) C. glabrata (PCR) Not Detected (Not Detect) C. krusei (PCR) Not Detected (Not Detect) C. parapsilosis (PCR) Not Detected (Not Detect) C. tropicalis (PCR) Not Detected (Not Detect) Coronavirus OC43 (PCR) Not Detected (Not Detect) Coronavirus HKU1 (PCR) Not Detected (Not Detect) Coronavirus 229E (PCR) Not Detected (Not Detect) Coronavirus NL63 (PCR) Not Detected (Not Detect) Enterobacteriac sp PCR Not Detected (Not Detect) E. cloacae complex PCR Not Detected (Not Detect) Enterococcus sp PCR Not Detected (Not Detect) E. coli (PCR) Not Detected (Not Detect) H. influenzae (PCR) Not Detected (Not Detect) Human Metapneumovir PCR Not Detected (Not Detect) Influenza A (H1) PCR Not Detected (Not Detect) Influ A (H1N1/09) PCR Not Detected (Not Detect) Influenza A (H3) PCR Not Detected (Not Detect) Influenza A Untype (PCR) Not Detected (Not Detect) Influenza Type B (PCR) DETECTED A (Not Detect) Klebsiella oxytoca PCR Not Detected (Not Detect) Klebsiella pneumoniae Not Detected (Not Detect) List. monocytogenes PCR Not Detected (Not Detect) M.pneumoniae DNA (PCR) Not Detected (Not Detect) N. meningitidis (PCR) Not Detected (Not Detect) Parainfluenza 1 (PCR) Not Detected (Not Detect) Parainfluenza 2 (PCR) Not Detected (Not Detect) Parainfluenza 3 (PCR) Not Detected (Not Detect) Parainfluenza 4 (PCR) Not Detected (Not Detect) Proteus species (PCR) Not Detected (Not Detect) RSV (PCR) Not Detected (Not Detect) Entero/Rhino (PCR) Not Detected (Not Detect) Serratia marcescens PCR Not Detected (Not Detect) Staphylococcus sp PCR DETECTED A (Not Detect) Staph aureus (PCR) DETECTED A (Not Detect) mecA-Methicil Res Gene DETECTED A (Not Detect) Streptococcus sp PCR Not Detected (Not Detect) Group A Strep DNA Not Detected (Not Detect) Group B Strep (PCR) Not Detected (Not Detect) Strep pneumoniae (PCR) Not Detected (Not Detect) P. aeruginosa (PCR) Not Detected (Not Detect) Tristian/B-Vanco Res Genes N/A (Not Detect) KPC (blaKPC) Detect PCR N/A (Not Detect) - Impressions Impressions Abdomen/Pelvis CT 07/23/17 18:45 IMPRESSION: 1. Bilateral lower lobe infiltrates, left greater than right. Trace left pleural effusion is suggested. 2. Findings suggestive of a mild focal colitis involving the distal descending colon. 3. Small to moderate amount of ascites. 4. Advanced aortoiliac atherosclerotic disease. Multifocal stenoses are suggested within the iliac circulation bilaterally, right greater than left, as well as in the distal aorta. D/ / 07/23/2017 19:40:51 Danielito Jeffery MD / zora Interpreting Provider: Danielito Jeffery MD Exam - Constitutional Vitals: Temp Pulse Resp BP Pulse Ox 98.1 F 82 14 129/87 97 07/25/17 04:00 07/25/17 06:00 07/25/17 07:25 07/25/17 07:25 07/25/17 07:25 Exam: General: Patient intubated and sedated requiring mechanical ventilation. HEENT: Patient has periorbital edema, oral edema with endotracheal tube, OG tube in place. Chest: Symmetric bilateral correlating with mechanical ventilation. Cardiac: Regular rate and rhythm, positive S1 and S2. no bruits appreciated bilateral carotids, Radial pulses 2+ bilateral, posterior tibial and dorsal pedal pulses 2+ bilateral. Respiratory: Diffusely diminished breath sounds with rhonchi and wheezing throughout. Abdomen: Distended, tympanic, hypoactive bowel sounds. Extremities: Symmetric bilateral, bilateral upper and lower extremities demonstrate anasarca - VTE Documentation of Mechanical Device: Intermittent pneumatic compression device Consult Discharge Plan - Plan Referrals: NONE,PCP [Primary Care Provider] - - Attending Attestation I examined this patient and my medical decision-making was reviewed with the Resident Physician. I agree with the documented findings, disposition and treatment plan as described except to the extent set forth below. d/c flagyl continue vancomycin/zosyn and tamiflu prognosis guarded
--- NOTE | 2017-07-25 09:30 | Pulmonology Progress Note ---
Date of Encounter: 07/25/17 Time of Encounter: 09:30 Assessment and Plan (1) Acute exacerbation of chronic obstructive airways disease Current Visit: No Status: Acute Patient seen and examined at bedside Labs, radiology, chart personally reviewed. Management was reviewed during multidisciplinary critical care rounds. 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 She does have appears to be preserved neurological function but exam is limited by amount of sedation with lifting of sedation this impairs gas exchange. Pulm: Acute on chronic hypoxic hypercarbic respiratory failure remains on ventilator this is complicated by terminal COPD today acceptable gas exchange peak pressures have improved over the last 24 hours and I suspect this is related to improving pneumonia continue management of COPD with steroids and bronchodilators and antimicrobials. Cards: She was in septic shock from MRSA bacteremia this is resolved. Current A. fib with RVR may need Cardizem infusion. She also has evidence of hydrostatic pulmonary edema for which we will institute diuresis as tolerated FEN-GI: She is receiving enteral nutrition for dietary recommendations she was also on proton pump inhibitor for GI prophylaxis Renal: Urine output monitored; renal function appears stable continue to monitor electrolytes ID: MRSA bacteremia on vancomycin will need TYE prior to discharge; influenza B on Tamiflu complete 5 days; acute colitis but GI panel negative; pansinusitis treated with Zosyn; appreciate infectious disease recommendations Heme/Onc: DVT prophylaxis given Endo: Glucose Monitored Integ/MSK: Skin Care per routine ICU Nursing Protocol to prevent ulcers. Lines: All lines examined without evidence of infection : Dispo: Remain in ICU for ventilator management CODE: Full code (2) CHF (congestive heart failure) Current Visit: No Status: Acute Qualifiers: Qualified Code(s): I50.33 - Acute on chronic diastolic (congestive) heart failure (3) Acute and chronic respiratory failure with hypercapnia Current Visit: No Status: Chronic (4) Goals of care, counseling/discussion Current Visit: Yes Status: Acute (5) Septic shock due to methicillin resistant Staphylococcus aureus Current Visit: Yes Status: Acute (6) Pansinusitis Current Visit: Yes Status: Acute Qualifiers: Chronicity: chronic Qualified Code(s): J32.4 - Chronic pansinusitis (7) Influenza B Current Visit: Yes Status: Acute (8) Colitis Current Visit: Yes Status: Acute (9) MRSA bacteremia Current Visit: Yes Status: Acute Subjective Principal diagnosis: acute respiratory failure with hypoxia Interval history: Paralytic stopped yesterday. Stable respiratory mechanics overnight and otherwise hemodynamically stable off vasopressor. This morning had episode of atrial fibrillation with rapid ventricular response which responded to IV administration of calcium channel braulio. Both nursing staff and my exam were able to elicit spontaneous movement and actually following simple commands although with lessening of sedation this and led to increased agitation and impaired respiratory mechanics temporarily. Otherwise she remains afebrile. She has had several bowel movements although the GI infectious panel was negative. Objective PUL Vital signs: Last Vital Signs Temp 98.3 F 07/25/17 08:00 Pulse 93 07/25/17 09:00 Resp 14 07/25/17 09:00 BP 136/93 07/25/17 09:00 Pulse Ox 97 07/25/17 09:00 General appearance: other (When I examined the patient she was comfortable able to open her eyes to my voice she was able to squeeze both hands to my prodding. Her pupils are otherwise equal round and reactive to light. ) Eyes: nonicteric Auscultation: bilateral: diminished breath sounds, wheezes (Faint wheeze bilaterally which overall appears improved), rhonchi Integumentary: other (She does have mottling which appears slightly worse in the lower extremities than previous days examination) Extremities: anasarca other (See general) Ventilator Settings Ventilator Settings: Ventilator Settings, Last 8 Hours Ventilator Mode VC+ Ventilator Mode VC+ Ventilator Mode VC+ Ventilator Mode VC+ Ventilator Mode VC+ Ventilator Mode VC+ Ventilator Mode VC+ Ventilator Mode VC+ Ventilator Mode VC+ Ventilator Mode VC+ Ventilator Mode VC+ Ventilator Mode VC+ Ventilator Tidal Volume 440 Setting Ventilator Tidal Volume 440 Setting Ventilator Tidal Volume 440 Setting Ventilator Tidal Volume 440 Setting Ventilator Tidal Volume 440 Setting Ventilator Tidal Volume 440 Setting Ventilator Tidal Volume 440 Setting Ventilator Tidal Volume 440 Setting Ventilator Tidal Volume 440 Setting Ventilator Tidal Volume 440 Setting Ventilator Tidal Volume 440 Setting Ventilator Tidal Volume 440 Setting Ventilator Respiratory Rate 12 Setting Ventilator Respiratory Rate 12 Setting Ventilator Respiratory Rate 14 Setting Ventilator Respiratory Rate 12 Setting Ventilator Respiratory Rate 14 Setting Ventilator Respiratory Rate 14 Setting Ventilator Respiratory Rate 14 Setting Ventilator Respiratory Rate 14 Setting Ventilator Respiratory Rate 14 Setting Ventilator Respiratory Rate 14 Setting Ventilator Respiratory Rate 14 Setting Ventilator Respiratory Rate 14 Setting Actual Respiratory Rate 14 Actual Respiratory Rate 12 Actual Respiratory Rate 14 Actual Respiratory Rate 14 Actual Respiratory Rate 14 Actual Respiratory Rate 14 Actual Respiratory Rate 14 Actual Respiratory Rate 14 Actual Respiratory Rate 14 Actual Respiratory Rate 14 Actual Respiratory Rate 14 Positive End Expiratory 5 Pressure Positive End Expiratory 5 Pressure Positive End Expiratory 5 Pressure Positive End Expiratory 5 Pressure Positive End Expiratory 5 Pressure Positive End Expiratory 5 Pressure Positive End Expiratory 5 Pressure Positive End Expiratory 5 Pressure Positive End Expiratory 5 Pressure Positive End Expiratory 5 Pressure Positive End Expiratory 5 Pressure Positive End Expiratory 5 Pressure Peak Inspiratory Airway 41 Pressure Peak Inspiratory Airway 39 Pressure Peak Inspiratory Airway 41 Pressure Peak Inspiratory Airway 37 Pressure Peak Inspiratory Airway 37 Pressure Peak Inspiratory Airway 37 Pressure Peak Inspiratory Airway 37 Pressure Peak Inspiratory Airway 37 Pressure Peak Inspiratory Airway 37 Pressure Peak Inspiratory Airway 37 Pressure Peak Inspiratory Airway 39 Pressure Results - Laboratory Findings CBC and BMP: 07/25/17 03:50 07/25/17 03:50 ABG ABG pH 7.33 pH Units (7.32-7.45) 07/25/17 04:54 ABG pCO2 68 mmHg (35-45) H 07/25/17 04:54 ABG pO2 99 mmHg (85-104) 07/25/17 04:54 ABG O2 Saturation 97 % (95-98) 07/25/17 04:54 PT/INR, D-dimer PT 11.9 Seconds (9.4-12.1) 07/17/17 03:46 D-Dimer 565 ng/mLFEU (0-500) H 07/17/17 03:46 Abnormal lab findings: Abnormal lab results WBC 18.0 K/mcL (4.3-11.1) H 07/25/17 03:50 RBC 3.29 M/mcL (3.82-4.97) L 07/25/17 03:50 Hgb 8.8 g/dL (11.5-15.4) L 07/25/17 03:50 Hct 29.5 % (35.3-44.9) L 07/25/17 03:50 MCH 26.7 pg (28.0-33.3) L 07/25/17 03:50 MCHC 29.8 g/dL (31.6-35.5) L 07/25/17 03:50 RDW 15.0 % (11.5-14.5) H 07/25/17 03:50 Plt Count 134 K/mcL (140-400) L 07/25/17 03:50 MPV 12.9 fL (9.4-12.4) H 07/25/17 03:50 Immature Gran % 4.9 % (0-4) H 07/23/17 03:27 Band Neutrophils % 16.0 % (0-4) H 07/25/17 03:50 Neutrophils # 17.3 K/mcL (1.6-8.9) H 07/25/17 03:50 Lymphocytes # 0.4 K/mcL (0.6-4.6) L 07/25/17 03:50 Nucleated RBCs/100 WBC 0.2 /100 WBC (0) H 07/25/17 03:50 Toxic Granulation Present (Not Present) A 07/25/17 03:50 Platelet Estimate Slight Decrease (Normal) L 07/25/17 03:50 Immature Plt Fraction 15.4 % (1.1-6.1) H 07/21/17 03:40 Hypochromasia Present (Not Present) A 07/23/17 03:27 APTT 66.6 Seconds (26.0-36.0) H 07/20/17 03:41 D-Dimer 565 ng/mLFEU (0-500) H 07/17/17 03:46 Heparin Anti-Xa, Unfract 0.99 IU/mL (0.30-0.70) H 07/18/17 06:00 ABG pCO2 68 mmHg (35-45) H 07/25/17 04:54 ABG HCO3 36 mEq/L (21-27) H 07/25/17 04:54 ABG Total CO2 38 mEq/L (20-26) H 07/25/17 04:54 ABG Base Excess 9 mEq/L (-2 to 3) H 07/25/17 04:54 VBG pH 7.30 pH Units (7.32-7.42) L 07/24/17 08:37 VBG pCO2 61 mmHg (41-51) H 07/24/17 08:37 VBG pO2 132 mmHg (25-50) H 07/24/17 08:37 VBG HCO3 30 mEq/L (21-27) H 07/24/17 08:37 Carbon Dioxide 34 mEq/L (23-29) H 07/25/17 03:50 BUN 29 mg/dL (6-20) H 07/25/17 03:50 BUN/Creatinine Ratio 38 (6-26) H 07/25/17 03:50 Glucose 169 mg/dL (70-105) H 07/25/17 03:50 POC Glucose 142 (58-89) H 07/25/17 08:19 Calcium 7.8 mg/dL (8.6-10.3) L 07/25/17 03:50 Venous Ioniz Calcium 1.03 mmol/L (1.15-1.35) L 07/25/17 04:27 AST 161 Units/L (13-39) H 07/23/17 14:30 ALT 332 Units/L (7-52) H 07/23/17 14:30 Troponin I 0.69 ng/mL (< 0.04) H* 07/18/17 04:00 B-Natriuretic Peptide 207 pg/mL (Less than 100) H 07/17/17 15:27 Serum Total Protein 5.4 g/dL (6.4-8.9) L 07/23/17 14:30 Albumin 2.4 g/dL (3.5-5.7) L 07/23/17 14:30 Albumin/Globulin Ratio 0.8 (1.1-2.2) L 07/23/17 14:30 Ur Specific [place] 1.029 (1.010-1.025) H 07/17/17 05:45 Influenza Type B (PCR) DETECTED (Not Detect) A 07/23/17 14:30 Staphylococcus sp PCR DETECTED (Not Detect) A 07/22/17 11:05 Staph aureus (PCR) DETECTED (Not Detect) A 07/22/17 11:05 mecA-Methicil Res Gene DETECTED (Not Detect) A 07/22/17 11:05 - Microbiology Findings Microbiology Findings: Microbiology, Last 48 Hours 07/22/17 20:44 Sputum Culture - Final Sputum Methicillin Resistant S.aureus 07/22/17 11:05 Blood Culture - Final Peripheral Venipuncture Methicillin Resistant S.aureus 07/22/17 11:00 Blood Culture - Preliminary Peripheral Venipuncture No growth. 07/23/17 14:30 Legionella Antigen - Final Urine,Catheterized Streptococcus pneumoniae Antigen (M - Final - Clinical Findings Intake & Output: Intake & Output 07/24/17 07/25/17 07/25/17 23:59 07:59 15:59 Intake Total 1332 / 1332 1095 / 1095 246 / 246 Output Total 1300 / 1300 400 / 400 275 / 275 Balance 32 / 32 695 / 695 -29 / -29 Weight 61.4 kg - VTE Documentation of Mechanical Device: Intermittent pneumatic compression device Consult Discharge Plan - Plan Referrals: NONE,PCP [Primary Care Provider] -
[2017-07-25] MEDS: Vecuronium 50 MG in 0.9 % Sodium Chloride 150 ML IVC SCH (10:45)
[2017-07-25] MEDS: Pantoprazole 40 MG VIAL IVP SCH (10:48)
[2017-07-25] MEDS ORDERED: Bisacodyl 10 MG RECTAL SUPPOSITORY RC PRN (11:00)
[2017-07-25] MEDS: Vancomycin 500 MG in 0.9 % Sodium Chloride Mini Bag 100 ML IVPB SCH ×2 (11:25→23:41)
[2017-07-25] MEDS: Norepinephrine 4 MG in D5% in Water 250 ML IVC SCH (13:16)
[2017-07-25 14:41] LABS: VBG Ionized Calcium 1.04 mmol/L (1.15-1.35)
[2017-07-25 15:22] LABS: Magnesium 2.1 mg/dL (1.6-2.6); Potassium 4.1 mEq/L (3.5-5.1)
[2017-07-26] MEDS: Lacri-Lube 3.5 GM TUBE BOTH EYES SCH ×6 (00:30→21:28)
[2017-07-26] MEDS: Insulin LISPRO 300 UNITS/3 ML VIAL SQ SCH ×6 (00:30→21:28)
[2017-07-26] MEDS: Ipratropium/Albuterol Neb 3 ML IH SCH ×6 (03:34→23:27)
[2017-07-26 04:29] LABS: VBG Ionized Calcium 1.09 mmol/L (1.15-1.35)
[2017-07-26 04:47] LABS: BUN/Creatinine Ratio 40 (6-26); Blood Urea Nitrogen 27 mg/dL (6-20); Calcium 8.1 mg/dL (8.6-10.3); Carbon Dioxide 36 mEq/L (23-29); Chloride 105 mEq/L (98-107); Glucose 148 mg/dL (70-105); Osmolality,Calculated 304 (280-300); Phosphorous 2.7 mg/dL (2.7-4.5); Potassium 4.2 mEq/L (3.5-5.1); Sodium 143 mEq/L (136-145); eGFR For African Americans > 60 (> 60); eGFR For Non-African Americans > 60 (> 60)
[2017-07-26 04:49] LABS: Hematocrit 28.6 % (35.3-44.9); Hemoglobin 8.6 g/dL (11.5-15.4); Mean Corpuscular HGB Conc 30.1 g/dL (31.6-35.5); Mean Corpuscular Hemoglobin 27.4 pg (28.0-33.3); Mean Corpuscular Volume 91.1 fL (83.0-100.0); Mean Platelet Volume 12.9 fL (9.4-12.4); Nucleated Red Blood Cells 0.3 /100 WBC (0); Platelet Count 158 K/mcL (140-400); Red Blood Count 3.14 M/mcL (3.82-4.97); Red Cell Distribution Width 15.1 % (11.5-14.5)
[2017-07-26] MEDS: *HR* Heparin 5,000 UNIT/ML VIAL SQ SCH ×2 (05:02→18:26)
[2017-07-26] MEDS: Piperacillin/Tazobactam 3.375 GM in 0.9 % Sodium Chloride Mini Bag 100 ML IVPB SCH ×3 (05:02→19:46)
[2017-07-26 05:12] LABS: ABG Base Excess 11 mEq/L (-2 to 3); ABG HCO3 39 mEq/L (21-27); ABG Oxygen Saturation 97 % (95-98); ABG PCO2 71 mmHg (35-45); ABG PH 7.35 pH Units (7.32-7.45); ABG PO2 98 mmHg (85-104); ABG TCO2 41 mEq/L (20-26); Blood Gas Modality ASSIST CONTROL; Blood Gas PEEP 5 cm H2O; Blood Gas Respiration Rate 12; Blood Gas VT 440 cc
[2017-07-26 05:39] LABS: Lymphocytes # 1.8 K/mcL (0.6-4.6); Monocytes # 1.8 K/mcL (0.0-1.3); Neutrophils # 18.9 K/mcL (1.6-8.9); Platelet Estimate Normal (Normal); Poikilocytosis 1+ (Not Present)
[2017-07-26] MEDS: FentaNYL (PF) 1,000 MCG in 0.9 % Sodium Chloride 80 ML IVC SCH ×3 (06:40→23:49)
[2017-07-26] MEDS: Budesonide/Formoterol 160/4.5 MDI IH SCH ×2 (07:30→19:36)
[2017-07-26] MEDS ORDERED: Furosemide 20 MG/2 ML VIAL IVP ONE (08:36)
--- NOTE | 2017-07-26 08:36 | Pulmonology Progress Note ---
Date of Encounter: 07/26/17 Time of Encounter: 08:36 Assessment and Plan (1) Acute exacerbation of chronic obstructive airways disease Current Visit: No Status: Acute Patient seen and examined at bedside Labs, radiology, chart personally reviewed. Management was reviewed during multidisciplinary critical care rounds. 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 Failed spontaneous awakening trial today we have lessened sedation slightly and we will reattempt tomorrow Pulm: Acute on chronic hypoxic hypercarbic respiratory failure remains on ventilator this is complicated by terminal COPD today a minute ventilation increased by slight increase in respiratory rate for trend towards worsening hypercarbia. Diuresis for hydrostatic pulmonary edema. Pressure stable secondary to improving pneumonia continue management of COPD with steroids and bronchodilators and antimicrobials. She is not a candidate for spontaneous breathing trial today. We will need to discuss tracheostomy placement early next week Cards: She was in septic shock from MRSA bacteremia this is resolved. Had episodic A. fib with RVR which is responded to calcium channel braulio FEN-GI: She is receiving enteral nutrition for dietary recommendations she was also on proton pump inhibitor for GI prophylaxis Renal: Urine output monitored; renal function appears stable continue to monitor electrolytes ID: MRSA bacteremia on vancomycin will need TYE prior to discharge; influenza B on Tamiflu complete 5 days; acute colitis but GI panel negative; pansinusitis treated with Zosyn; appreciate infectious disease recommendations Heme/Onc: DVT prophylaxis given Endo: Glucose Monitored Integ/MSK: Skin Care per routine ICU Nursing Protocol to prevent ulcers. Lines: All lines examined without evidence of infection : Dispo: Remain in ICU for ventilator management CODE: Full code (2) Acute and chronic respiratory failure with hypercapnia Current Visit: No Status: Chronic (3) Goals of care, counseling/discussion Current Visit: Yes Status: Acute (4) Septic shock due to methicillin resistant Staphylococcus aureus Current Visit: Yes Status: Acute (5) Pansinusitis Current Visit: Yes Status: Acute Qualifiers: Chronicity: chronic Qualified Code(s): J32.4 - Chronic pansinusitis (6) Influenza B Current Visit: Yes Status: Acute (7) Colitis Current Visit: Yes Status: Acute (8) MRSA bacteremia Current Visit: Yes Status: Acute Subjective Principal diagnosis: acute respiratory failure with hypoxia Interval history: Spontaneous awakening trial attempted a day with increasing heart rate and respiratory rate with worsening saturation. Blood pressure and heart rate have been otherwise stable with stable oxygenation. Objective PUL Vital signs: Last Vital Signs Temp 98.9 F 07/26/17 07:00 Pulse 130 07/26/17 06:00 Resp 15 07/26/17 07:30 BP 127/104 07/26/17 07:30 Pulse Ox 97 07/26/17 07:30 General appearance: other (Sedated on vent) Auscultation: bilateral: rales, rhonchi Cardiovascular: regular rate and rhythm Gastrointestinal: normoactive bowel sounds Integumentary: other (Femoral central venous catheter evaluated and does not show any evidence of infection/erythema) Extremities: anasarca pupils equal and round Ventilator Settings Ventilator Settings: Ventilator Settings, Last 8 Hours Ventilator Mode VC+ Ventilator Mode VC+ Ventilator Mode VC+ Ventilator Mode VC+ Ventilator Mode VC+ Ventilator Mode VC+ Ventilator Mode VC+ Ventilator Mode VC+ Ventilator Mode VC+ Ventilator Mode VC+ Ventilator Tidal Volume 440 Setting Ventilator Tidal Volume 440 Setting Ventilator Tidal Volume 440 Setting Ventilator Tidal Volume 440 Setting Ventilator Tidal Volume 440 Setting Ventilator Tidal Volume 440 Setting Ventilator Tidal Volume 440 Setting Ventilator Tidal Volume 440 Setting Ventilator Tidal Volume 440 Setting Ventilator Tidal Volume 440 Setting Ventilator Respiratory Rate 14 Setting Ventilator Respiratory Rate 12 Setting Ventilator Respiratory Rate 12 Setting Ventilator Respiratory Rate 12 Setting Ventilator Respiratory Rate 12 Setting Ventilator Respiratory Rate 12 Setting Ventilator Respiratory Rate 12 Setting Ventilator Respiratory Rate 12 Setting Ventilator Respiratory Rate 12 Setting Ventilator Respiratory Rate 12 Setting Actual Respiratory Rate 14 Actual Respiratory Rate 13 Actual Respiratory Rate 13 Actual Respiratory Rate 12 Actual Respiratory Rate 12 Actual Respiratory Rate 13 Actual Respiratory Rate 12 Actual Respiratory Rate 14 Actual Respiratory Rate 14 Positive End Expiratory 5 Pressure Positive End Expiratory 5 Pressure Positive End Expiratory 5 Pressure Positive End Expiratory 5 Pressure Positive End Expiratory 5 Pressure Positive End Expiratory 5 Pressure Positive End Expiratory 5 Pressure Positive End Expiratory 5 Pressure Positive End Expiratory 5 Pressure Positive End Expiratory 5 Pressure Peak Inspiratory Airway 43 Pressure Peak Inspiratory Airway 32 Pressure Peak Inspiratory Airway 35 Pressure Peak Inspiratory Airway 32 Pressure Peak Inspiratory Airway 33 Pressure Peak Inspiratory Airway 30 Pressure Peak Inspiratory Airway 30 Pressure Peak Inspiratory Airway 35 Pressure Peak Inspiratory Airway 34 Pressure Results - Laboratory Findings CBC and BMP: 07/26/17 04:08 07/26/17 04:00 ABG ABG pH 7.35 pH Units (7.32-7.45) 07/26/17 05:00 ABG pCO2 71 mmHg (35-45) H* 07/26/17 05:00 ABG pO2 98 mmHg (85-104) 07/26/17 05:00 ABG O2 Saturation 97 % (95-98) 07/26/17 05:00 PT/INR, D-dimer PT 11.9 Seconds (9.4-12.1) 07/17/17 03:46 D-Dimer 565 ng/mLFEU (0-500) H 07/17/17 03:46 Abnormal lab findings: Abnormal lab results WBC 22.5 K/mcL (4.3-11.1) H 07/26/17 04:08 RBC 3.14 M/mcL (3.82-4.97) L 07/26/17 04:08 Hgb 8.6 g/dL (11.5-15.4) L 07/26/17 04:08 Hct 28.6 % (35.3-44.9) L 07/26/17 04:08 MCH 27.4 pg (28.0-33.3) L 07/26/17 04:08 MCHC 30.1 g/dL (31.6-35.5) L 07/26/17 04:08 RDW 15.1 % (11.5-14.5) H 07/26/17 04:08 MPV 12.9 fL (9.4-12.4) H 07/26/17 04:08 Immature Gran % 4.9 % (0-4) H 07/23/17 03:27 Neutrophils # 18.9 K/mcL (1.6-8.9) H 07/26/17 04:08 Monocytes # 1.8 K/mcL (0.0-1.3) H 07/26/17 04:08 Nucleated RBCs/100 WBC 0.3 /100 WBC (0) H 07/26/17 04:08 Toxic Granulation Present (Not Present) A 07/25/17 03:50 Immature Plt Fraction 15.4 % (1.1-6.1) H 07/21/17 03:40 Hypochromasia Present (Not Present) A 07/23/17 03:27 Poikilocytosis 1+ (Not Present) A 07/26/17 04:08 APTT 66.6 Seconds (26.0-36.0) H 07/20/17 03:41 D-Dimer 565 ng/mLFEU (0-500) H 07/17/17 03:46 Heparin Anti-Xa, Unfract 0.99 IU/mL (0.30-0.70) H 07/18/17 06:00 ABG pCO2 71 mmHg (35-45) H* 07/26/17 05:00 ABG HCO3 39 mEq/L (21-27) H 07/26/17 05:00 ABG Total CO2 41 mEq/L (20-26) H 07/26/17 05:00 ABG Base Excess 11 mEq/L (-2 to 3) H 07/26/17 05:00 VBG pH 7.30 pH Units (7.32-7.42) L 07/24/17 08:37 VBG pCO2 61 mmHg (41-51) H 07/24/17 08:37 VBG pO2 132 mmHg (25-50) H 07/24/17 08:37 VBG HCO3 30 mEq/L (21-27) H 07/24/17 08:37 Carbon Dioxide 36 mEq/L (23-29) H 07/26/17 04:00 BUN 27 mg/dL (6-20) H 07/26/17 04:00 BUN/Creatinine Ratio 40 (6-26) H 07/26/17 04:00 Glucose 148 mg/dL (70-105) H 07/26/17 04:00 POC Glucose 157 (58-89) H 07/26/17 07:40 Calculated Osmolality 304 (280-300) H 07/26/17 04:00 Calcium 8.1 mg/dL (8.6-10.3) L 07/26/17 04:00 Venous Ioniz Calcium 1.09 mmol/L (1.15-1.35) L 07/26/17 04:27 AST 161 Units/L (13-39) H 07/23/17 14:30 ALT 332 Units/L (7-52) H 07/23/17 14:30 Troponin I 0.69 ng/mL (< 0.04) H* 07/18/17 04:00 B-Natriuretic Peptide 207 pg/mL (Less than 100) H 07/17/17 15:27 Serum Total Protein 5.4 g/dL (6.4-8.9) L 07/23/17 14:30 Albumin 2.4 g/dL (3.5-5.7) L 07/23/17 14:30 Albumin/Globulin Ratio 0.8 (1.1-2.2) L 07/23/17 14:30 Ur Specific [place] 1.029 (1.010-1.025) H 07/17/17 05:45 Influenza Type B (PCR) DETECTED (Not Detect) A 07/23/17 14:30 Staphylococcus sp PCR DETECTED (Not Detect) A 07/22/17 11:05 Staph aureus (PCR) DETECTED (Not Detect) A 07/22/17 11:05 mecA-Methicil Res Gene DETECTED (Not Detect) A 07/22/17 11:05 - Microbiology Findings Microbiology Findings: Microbiology, Last 48 Hours 07/24/17 11:45 Blood Culture - Preliminary Central Venous Catheter No growth. 07/22/17 20:44 Sputum Culture - Final Sputum Methicillin Resistant S.aureus 07/22/17 11:05 Blood Culture - Final Peripheral Venipuncture Methicillin Resistant S.aureus 07/22/17 11:00 Blood Culture - Preliminary Peripheral Venipuncture No growth. - Clinical Findings Intake & Output: Intake & Output 07/25/17 07/26/17 07/26/17 23:59 07:59 15:59 Intake Total 732 / 732 1156 / 1156 Output Total 350 / 350 1000 / 1000 Balance 382 / 382 156 / 156 Weight 61.3 kg - VTE Documentation of Mechanical Device: Intermittent pneumatic compression device Consult Discharge Plan - Plan Referrals: NONE,PCP [Primary Care Provider] -
[2017-07-26] MEDS: Nicotine 14 MG PATCH.TD24 TD SCH (08:52)
[2017-07-26] MEDS: MethylPREDNISolone 40 MG/ML VIAL IVP SCH ×3 (08:52→23:49)
[2017-07-26] MEDS: Chlorhexidine Rinse 15 ML MOUTHWASH MM SCH ×2 (08:52→19:47)
[2017-07-26] MEDS: Nystatin SUSP 5 ML UD.LIQ PO SCH ×4 (08:52→19:47)
[2017-07-26] MEDS: Pantoprazole 40 MG VIAL IVP SCH (08:52)
[2017-07-26] MEDS: Dexmedetomidine HCl 400 MCG/100 ML MLS IVC SCH (10:21)
[2017-07-26] MEDS: Vancomycin 500 MG in 0.9 % Sodium Chloride Mini Bag 100 ML IVPB SCH ×2 (11:33→23:49)
[2017-07-26] MEDS: Norepinephrine 4 MG in D5% in Water 250 ML IVC SCH (19:22)
--- NOTE | 2017-07-26 19:42 | Electrocardiograph Report ---
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
[2017-07-27] MEDS: Lacri-Lube 3.5 GM TUBE BOTH EYES SCH ×6 (00:07→19:55)
[2017-07-27] MEDS: Insulin LISPRO 300 UNITS/3 ML VIAL SQ SCH ×6 (00:07→19:55)
[2017-07-27] MEDS: Dexmedetomidine HCl 400 MCG/100 ML MLS IVC SCH ×3 (00:09→22:05)
[2017-07-27] MEDS: Ipratropium/Albuterol Neb 3 ML IH SCH ×5 (03:24→19:44)
[2017-07-27 04:07] LABS: Basophils # 0.1 K/mcL (0.0-0.2); Basophils % 0.4 %; Hematocrit 27.7 % (35.3-44.9); Hemoglobin 8.4 g/dL (11.5-15.4); Immature Granulocytes % 11.2 % (0-4); Lymphocytes # 0.7 K/mcL (0.6-4.6); Lymphocytes % 3.3 %; Mean Corpuscular HGB Conc 30.3 g/dL (31.6-35.5); Mean Corpuscular Hemoglobin 26.8 pg (28.0-33.3); Mean Corpuscular Volume 88.5 fL (83.0-100.0); Mean Platelet Volume 12.9 fL (9.4-12.4); Monocytes # 0.9 K/mcL (0.0-1.3); Monocytes % 4.1 %; Neutrophils # 16.9 K/mcL (1.6-8.9); Nucleated Red Blood Cells 0.1 /100 WBC (0); Platelet Count 156 K/mcL (140-400); Red Blood Count 3.13 M/mcL (3.82-4.97); Red Cell Distribution Width 14.6 % (11.5-14.5)
[2017-07-27 04:59] LABS: BUN/Creatinine Ratio 33 (6-26); Blood Urea Nitrogen 23 mg/dL (6-20); Calcium 7.8 mg/dL (8.6-10.3); Carbon Dioxide 40 mEq/L (23-29); Chloride 96 mEq/L (98-107); Glucose 137 mg/dL (70-105); Osmolality,Calculated 300 (280-300); Potassium 2.9 mEq/L (3.5-5.1); Sodium 142 mEq/L (136-145); eGFR For African Americans > 60 (> 60); eGFR For Non-African Americans > 60 (> 60)
[2017-07-27 05:13] LABS: Platelet Estimate Normal (Normal); Toxic Granulation Present (Not Present)
[2017-07-27] MEDS: Piperacillin/Tazobactam 3.375 GM in 0.9 % Sodium Chloride Mini Bag 100 ML IVPB SCH ×3 (05:14→20:06)
[2017-07-27] MEDS: *HR* Heparin 5,000 UNIT/ML VIAL SQ SCH ×2 (05:25→17:59)
[2017-07-27] MEDS: Potassium Chloride 10 MEQ in 0.9 % Sodium Chloride 100 ML IVPB PRN ×8 (05:35→21:50)
[2017-07-27 05:37] LABS: ABG Base Excess 19 mEq/L (-2 to 3); ABG HCO3 46 mEq/L (21-27); ABG Oxygen Saturation 98 % (95-98); ABG PCO2 70 mmHg (35-45); ABG PH 7.42 pH Units (7.32-7.45); ABG PO2 107 mmHg (85-104); ABG TCO2 48 mEq/L (20-26); Blood Gas Modality ASSIST CONTROL; Blood Gas PEEP 5 cm H2O; Blood Gas Respiration Rate 14; Blood Gas VT 440 cc
--- NOTE | 2017-07-27 07:16 | Pulmonology Progress Note ---
Date of Encounter: 07/27/17 Time of Encounter: 07:16 Assessment and Plan (1) Acute exacerbation of chronic obstructive airways disease Current Visit: No Status: Acute Patient seen and examined at bedside Labs, radiology, chart personally reviewed. Management was reviewed during multidisciplinary critical care rounds. 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 Did better today with spontaneous awake trial. Currently level of sedation is appropriate she is about a [place] 3. Pulm: Acute on chronic hypoxic hypercarbic respiratory failure remains on ventilator this is complicated by terminal COPD. Failed spontaneous breathing trial today because of tachycardia we will try again tomorrow. She remains on event with acceptable gas exchange very minimal intrinsic PEEP. Continue steroids and bronchodilators for COPD exacerbation. Continue antimicrobials for MRSA pneumonia. We will likely need tracheostomy placement for prolonged intubation Cards: She was in septic shock from MRSA bacteremia this is resolved. Had episodic A. fib with RVR which is responded to calcium channel braulio. She has underlying hydrostatic pulmonary edema which I suspect is also complicating her respiratory status FEN-GI: She is receiving enteral nutrition for dietary recommendations she was also on proton pump inhibitor for GI prophylaxis Renal: Urine output monitored; renal function appears stable continue to monitor electrolytes ID: MRSA bacteremia on vancomycin will need TYE prior to discharge; influenza B on Tamiflu complete 5 days; acute colitis but GI panel negative; pansinusitis treated with Zosyn; White count remains elevated. Infectious disease following Heme/Onc: DVT prophylaxis given Endo: Glucose Monitored Integ/MSK: Skin Care per routine ICU Nursing Protocol to prevent ulcers. Lines: All lines examined without evidence of infection : Dispo: Remain in ICU for ventilator management CODE: Full code (2) Acute and chronic respiratory failure with hypercapnia Current Visit: No Status: Chronic (3) Goals of care, counseling/discussion Current Visit: Yes Status: Acute (4) Septic shock due to methicillin resistant Staphylococcus aureus Current Visit: Yes Status: Acute (5) Pansinusitis Current Visit: Yes Status: Acute Qualifiers: Chronicity: chronic Qualified Code(s): J32.4 - Chronic pansinusitis (6) Influenza B Current Visit: Yes Status: Acute (7) Colitis Current Visit: Yes Status: Acute (8) MRSA bacteremia Current Visit: Yes Status: Acute Subjective Principal diagnosis: acute respiratory failure with hypoxia Interval history: Was able to complete about 10 minutes of spontaneous breathing trial a day at which point became extremely tachycardic and trial was terminated. Generally hemodynamically stable with borderline hypotension over the last couple of hours. Objective PUL Vital signs: Last Vital Signs Temp 97.3 F L 07/27/17 04:43 Pulse 137 07/27/17 06:00 Resp 19 07/27/17 06:00 BP 154/99 07/27/17 06:00 Pulse Ox 99 07/27/17 06:00 The patient is sedated on the vent. To my voice she is able to open her eyes squeeze my fingers with a bilateral equally strong machine plug shaper. She is able to move her feet to my commands. She looks grossly edematous. She has breath sounds bilaterally which are generally decreased with scattered rhonchi and prolonged expiratory phase and faint expiratory wheeze overall this appears generally improved from earlier in the week. Her heart rate is regular rate and rhythm there is no murmur that I can auscultate. Her abdomen is distended but soft there is no grimace to deep palpation. She has 1+. Edema in the lower extremities her distal pulses are palpable but faint Ventilator Settings Ventilator Settings: Ventilator Settings, Last 8 Hours Ventilator Mode VC+ Ventilator Mode VC+ Ventilator Mode VC+ Ventilator Mode VC+ Ventilator Mode VC+ Ventilator Mode VC+ Ventilator Mode VC+ Ventilator Mode VC+ Ventilator Mode VC+ Ventilator Mode VC+ Ventilator Mode VC+ Ventilator Mode VC+ Ventilator Tidal Volume 440 Setting Ventilator Tidal Volume 440 Setting Ventilator Tidal Volume 440 Setting Ventilator Tidal Volume 440 Setting Ventilator Tidal Volume 440 Setting Ventilator Tidal Volume 440 Setting Ventilator Tidal Volume 440 Setting Ventilator Tidal Volume 440 Setting Ventilator Tidal Volume 440 Setting Ventilator Tidal Volume 440 Setting Ventilator Tidal Volume 440 Setting Ventilator Tidal Volume 440 Setting Ventilator Respiratory Rate 14 Setting Ventilator Respiratory Rate 14 Setting Ventilator Respiratory Rate 14 Setting Ventilator Respiratory Rate 14 Setting Ventilator Respiratory Rate 14 Setting Ventilator Respiratory Rate 14 Setting Ventilator Respiratory Rate 14 Setting Ventilator Respiratory Rate 14 Setting Ventilator Respiratory Rate 14 Setting Ventilator Respiratory Rate 14 Setting Ventilator Respiratory Rate 14 Setting Ventilator Respiratory Rate 16 Setting Actual Respiratory Rate 19 Actual Respiratory Rate 15 Actual Respiratory Rate 16 Actual Respiratory Rate 14 Actual Respiratory Rate 14 Actual Respiratory Rate 14 Actual Respiratory Rate 14 Actual Respiratory Rate 14 Actual Respiratory Rate 14 Actual Respiratory Rate 15 Actual Respiratory Rate 14 Positive End Expiratory 5 Pressure Positive End Expiratory 5 Pressure Positive End Expiratory 5 Pressure Positive End Expiratory 5 Pressure Positive End Expiratory 5 Pressure Positive End Expiratory 5 Pressure Positive End Expiratory 5 Pressure Positive End Expiratory 5 Pressure Positive End Expiratory 5 Pressure Positive End Expiratory 5 Pressure Positive End Expiratory 5 Pressure Positive End Expiratory 5 Pressure Peak Inspiratory Airway 30 Pressure Peak Inspiratory Airway 28 Pressure Peak Inspiratory Airway 30 Pressure Peak Inspiratory Airway 35 Pressure Peak Inspiratory Airway 37 Pressure Peak Inspiratory Airway 40 Pressure Peak Inspiratory Airway 37 Pressure Peak Inspiratory Airway 35 Pressure Peak Inspiratory Airway 35 Pressure Peak Inspiratory Airway 34 Pressure Peak Inspiratory Airway 35 Pressure Results - Laboratory Findings CBC and BMP: 07/27/17 03:23 07/27/17 03:23 ABG ABG pH 7.42 pH Units (7.32-7.45) 07/27/17 05:33 ABG pCO2 70 mmHg (35-45) H* 07/27/17 05:33 ABG pO2 107 mmHg (85-104) H 07/27/17 05:33 ABG O2 Saturation 98 % (95-98) 07/27/17 05:33 PT/INR, D-dimer PT 11.9 Seconds (9.4-12.1) 07/17/17 03:46 D-Dimer 565 ng/mLFEU (0-500) H 07/17/17 03:46 Abnormal lab findings: Abnormal lab results WBC 20.8 K/mcL (4.3-11.1) H 07/27/17 03:23 RBC 3.13 M/mcL (3.82-4.97) L 07/27/17 03:23 Hgb 8.4 g/dL (11.5-15.4) L 07/27/17 03:23 Hct 27.7 % (35.3-44.9) L 07/27/17 03:23 MCH 26.8 pg (28.0-33.3) L 07/27/17 03:23 MCHC 30.3 g/dL (31.6-35.5) L 07/27/17 03:23 RDW 14.6 % (11.5-14.5) H 07/27/17 03:23 MPV 12.9 fL (9.4-12.4) H 07/27/17 03:23 Immature Gran % 11.2 % (0-4) H 07/27/17 03:23 Neutrophils # 16.9 K/mcL (1.6-8.9) H 07/27/17 03:23 Nucleated RBCs/100 WBC 0.1 /100 WBC (0) H 07/27/17 03:23 Toxic Granulation Present (Not Present) A 07/27/17 03:23 Immature Plt Fraction 15.4 % (1.1-6.1) H 07/21/17 03:40 Hypochromasia Present (Not Present) A 07/23/17 03:27 Poikilocytosis 1+ (Not Present) A 07/26/17 04:08 APTT 66.6 Seconds (26.0-36.0) H 07/20/17 03:41 D-Dimer 565 ng/mLFEU (0-500) H 07/17/17 03:46 Heparin Anti-Xa, Unfract 0.99 IU/mL (0.30-0.70) H 07/18/17 06:00 ABG pCO2 70 mmHg (35-45) H* 07/27/17 05:33 ABG pO2 107 mmHg (85-104) H 07/27/17 05:33 ABG HCO3 46 mEq/L (21-27) H 07/27/17 05:33 ABG Total CO2 48 mEq/L (20-26) H 07/27/17 05:33 ABG Base Excess 19 mEq/L (-2 to 3) H 07/27/17 05:33 VBG pH 7.30 pH Units (7.32-7.42) L 07/24/17 08:37 VBG pCO2 61 mmHg (41-51) H 07/24/17 08:37 VBG pO2 132 mmHg (25-50) H 07/24/17 08:37 VBG HCO3 30 mEq/L (21-27) H 07/24/17 08:37 Potassium 2.9 mEq/L (3.5-5.1) L D 07/27/17 03:23 Chloride 96 mEq/L (98-107) L 07/27/17 03:23 Carbon Dioxide 40 mEq/L (23-29) H* 07/27/17 03:23 BUN 23 mg/dL (6-20) H 07/27/17 03:23 BUN/Creatinine Ratio 33 (6-26) H 07/27/17 03:23 Glucose 137 mg/dL (70-105) H 07/27/17 03:23 POC Glucose 133 (58-89) H 07/27/17 04:26 Calcium 7.8 mg/dL (8.6-10.3) L 07/27/17 03:23 Venous Ioniz Calcium 1.09 mmol/L (1.15-1.35) L 07/26/17 04:27 AST 161 Units/L (13-39) H 07/23/17 14:30 ALT 332 Units/L (7-52) H 07/23/17 14:30 Troponin I 0.69 ng/mL (< 0.04) H* 07/18/17 04:00 B-Natriuretic Peptide 207 pg/mL (Less than 100) H 07/17/17 15:27 Serum Total Protein 5.4 g/dL (6.4-8.9) L 07/23/17 14:30 Albumin 2.4 g/dL (3.5-5.7) L 07/23/17 14:30 Albumin/Globulin Ratio 0.8 (1.1-2.2) L 07/23/17 14:30 Ur Specific [place] 1.029 (1.010-1.025) H 07/17/17 05:45 Influenza Type B (PCR) DETECTED (Not Detect) A 07/23/17 14:30 Staphylococcus sp PCR DETECTED (Not Detect) A 07/22/17 11:05 Staph aureus (PCR) DETECTED (Not Detect) A 07/22/17 11:05 mecA-Methicil Res Gene DETECTED (Not Detect) A 07/22/17 11:05 - Microbiology Findings Microbiology Findings: Microbiology, Last 48 Hours 07/24/17 11:45 Blood Culture - Preliminary Central Venous Catheter No growth. 07/22/17 20:44 Sputum Culture - Final Sputum Methicillin Resistant S.aureus 07/22/17 11:05 Blood Culture - Final Peripheral Venipuncture Methicillin Resistant S.aureus - Clinical Findings Intake & Output: Intake & Output 07/26/17 07/26/17 07/27/17 15:59 23:59 07:59 Intake Total 880 / 880 1053 / 1053 1528.4 / 1528.4 Output Total 2500 / 2500 925 / 925 200 / 200 Balance -1620 / -1620 128 / 128 1328.4 / 1328.4 Weight 63.7 kg - VTE Documentation of Mechanical Device: Intermittent pneumatic compression device Consult Discharge Plan - Plan Referrals: NONE,PCP [Primary Care Provider] -
[2017-07-27] MEDS: Budesonide/Formoterol 160/4.5 MDI IH SCH ×2 (07:38→19:45)
[2017-07-27] MEDS: FentaNYL (PF) 1,000 MCG in 0.9 % Sodium Chloride 80 ML IVC SCH ×3 (08:36→19:54)
[2017-07-27] MEDS: Pantoprazole 40 MG VIAL IVP SCH (08:50)
[2017-07-27] MEDS: Nicotine 14 MG PATCH.TD24 TD SCH (08:50)
[2017-07-27] MEDS: MethylPREDNISolone 40 MG/ML VIAL IVP SCH ×2 (08:50→15:48)
[2017-07-27] MEDS: Chlorhexidine Rinse 15 ML MOUTHWASH MM SCH ×2 (08:50→20:06)
[2017-07-27] MEDS: Nystatin SUSP 5 ML UD.LIQ PO SCH ×4 (08:50→20:06)
[2017-07-27 11:06] LABS: Magnesium 1.7 mg/dL (1.6-2.6)
[2017-07-27] MEDS: Vancomycin 500 MG in 0.9 % Sodium Chloride Mini Bag 100 ML IVPB SCH (12:16)
[2017-07-27 16:38] LABS: BUN/Creatinine Ratio 33 (6-26); Blood Urea Nitrogen 19 mg/dL (6-20); Calcium 7.5 mg/dL (8.6-10.3); Carbon Dioxide 43 mEq/L (23-29); Chloride 94 mEq/L (98-107); Glucose 153 mg/dL (70-105); Osmolality,Calculated 299 (280-300); Potassium 3.1 mEq/L (3.5-5.1); Sodium 142 mEq/L (136-145); eGFR For African Americans > 60 (> 60); eGFR For Non-African Americans > 60 (> 60)
[2017-07-27] MEDS: Norepinephrine 4 MG in D5% in Water 250 ML IVC SCH (19:55)
[2017-07-28] MEDS: MethylPREDNISolone 40 MG/ML VIAL IVP SCH ×4 (00:14→23:17)
[2017-07-28] MEDS: Vancomycin 500 MG in 0.9 % Sodium Chloride Mini Bag 100 ML IVPB SCH ×3 (00:14→23:17)
[2017-07-28] MEDS: Lacri-Lube 3.5 GM TUBE BOTH EYES SCH ×7 (00:15→23:20)
[2017-07-28] MEDS: Insulin LISPRO 300 UNITS/3 ML VIAL SQ SCH ×7 (00:16→23:20)
[2017-07-28] MEDS: Ipratropium/Albuterol Neb 3 ML IH SCH ×7 (00:44→23:54)
[2017-07-28] MEDS: FentaNYL (PF) 1,000 MCG in 0.9 % Sodium Chloride 80 ML IVC SCH ×4 (01:50→21:53)
[2017-07-28 03:44] LABS: Hematocrit 26.3 % (35.3-44.9); Mean Corpuscular HGB Conc 30.4 g/dL (31.6-35.5); Mean Corpuscular Volume 88.9 fL (83.0-100.0); Mean Platelet Volume 12.5 fL (9.4-12.4); Nucleated Red Blood Cells 0.1 /100 WBC (0); Platelet Count 142 K/mcL (140-400); Red Blood Count 2.96 M/mcL (3.82-4.97); Red Cell Distribution Width 14.5 % (11.5-14.5)
[2017-07-28] MEDS: Piperacillin/Tazobactam 3.375 GM in 0.9 % Sodium Chloride Mini Bag 100 ML IVPB SCH ×3 (03:55→19:53)
[2017-07-28 04:03] LABS: Lymphocytes # 2.3 K/mcL (0.6-4.6); Monocytes # 0.4 K/mcL (0.0-1.3); Neutrophils # 15.1 K/mcL (1.6-8.9); Platelet Estimate Decreased (Normal)
[2017-07-28 04:14] LABS: BUN/Creatinine Ratio 35 (6-26); Blood Urea Nitrogen 20 mg/dL (6-20); Calcium 7.6 mg/dL (8.6-10.3); Carbon Dioxide 44 mEq/L (23-29); Chloride 95 mEq/L (98-107); Glucose 172 mg/dL (70-105); Osmolality,Calculated 297 (280-300); Potassium 3.5 mEq/L (3.5-5.1); Sodium 140 mEq/L (136-145); eGFR For African Americans > 60 (> 60); eGFR For Non-African Americans > 60 (> 60)
[2017-07-28] MEDS ORDERED: Potassium Chloride Elixir 20 MEQ/15 ML UDC GTUBE ONE (04:55)
[2017-07-28] MEDS: *HR* Heparin 5,000 UNIT/ML VIAL SQ SCH ×2 (05:01→05:02)
[2017-07-28 06:37] LABS: ABG Base Excess 15 mEq/L (-2 to 3); ABG HCO3 41 mEq/L (21-27); ABG Oxygen Saturation 99 % (95-98); ABG PCO2 55 mmHg (35-45); ABG PH 7.48 pH Units (7.32-7.45); ABG PO2 119 mmHg (85-104); ABG TCO2 42 mEq/L (20-26); Blood Gas Modality VC; Blood Gas PEEP 5 cm H2O; Blood Gas Respiration Rate 14; Blood Gas VT 440 cc
[2017-07-28] MEDS: Budesonide/Formoterol 160/4.5 MDI IH SCH ×2 (07:22→20:18)
[2017-07-28] MEDS: Chlorhexidine Rinse 15 ML MOUTHWASH MM SCH ×2 (07:49→19:53)
[2017-07-28] MEDS: Nystatin SUSP 5 ML UD.LIQ PO SCH ×4 (07:49→19:53)
[2017-07-28] MEDS: Nicotine 14 MG PATCH.TD24 TD SCH (07:49)
[2017-07-28] MEDS: Pantoprazole 40 MG VIAL IVP SCH (07:49)
[2017-07-28] MEDS: Norepinephrine 4 MG in D5% in Water 250 ML IVC SCH (07:50)
[2017-07-28] MEDS ORDERED: Furosemide 40 MG/4 ML VIAL IVP ONE (09:28)
--- NOTE | 2017-07-28 09:45 | Pulmonology Progress Note ---
<Herlinda Yee - Last Filed: 07/28/17 15:45> Date of Encounter: 07/28/17 Time of Encounter: 08:00 Assessment and Plan (1) Acute respiratory failure with hypoxia Current Visit: No Status: Acute Acute on chronic respiratory failure with hypoxemia secondary to COPD and bacteremia with MRSA pneumonia, influenza B, chronic mastoiditis, and pansinusitis. Patient began satting in the 80s while in SVT. Patient intubated on 07/17/17 and sedated. CXR negative. CTA negative for PE but did show bronchial wall thickening and mucous plugging with severe emphysematous changes. Troponin negative x1 then increased to a max of 1.06 but now trending down to 0.69. Patient extubated 07/18 and was on BIPAP FiO2 35%. Patient reintubated later that morning as patient went into SVT and worsening respiratory failure. See event note for details. 07/21: patient was having hypotension and with less sedation had decreased responsiveness. Chest x-ray, head CT, lactic acid and blood cultures ordered. Started Levophed. Began Vecuronium for lung rest. Concern for her condition may not improve. She is still full code and may need tracheostomy. Palliative care on board and discussed with family who said that she did not want a trach. 07/22: Head CT showed pansinusitis and mastoiditis. 07/23: Overnight, febrile max 102.4F. Increase WBC = 16.2 (9.2) and found to be in septic shock requiring Levophed. 07/24: Patient is found to be positive for MRSA and influenza B. Due to CT abdomen and pelvis showing colitis a GI panel was negative. Today patient following commands. Will try and diuresis today before CPAP trial plan: - Lasix 40mg IVP once, will reassess after, if vitals stable may repeat in the afternoon - competed Tamiflu ( day /4) - Solumedrol 40mg IV Q8hrs - Duonebs scheduled Q4hrs, prn Q2hrs - Symbicort - will complete course of Zosysn 6 days for colitis, ID following - antibiotics: continued Vancomycin ( day 6) and Zosyn (day 6). s/p Levoquin ( 5 days), Vanco (2 days) Zyvox ( 2 days), flagyl (1 day) - sedation: Precedex, Fentanyl - repeat BC peripheral, BC 07/24/17 MRSA central venous , BC 07/22/17 gram + cocci , BC 07/17/17 prelim no growth - sputum culture 07/19 growing MRSA, 07/17 normal resp shefali. Sputum culture 07/19 few gram + cocci, + rods - restarted tube feeds 07/21/17 - lines: powerglider x2, central R fem line (2) Acute exacerbation of chronic obstructive airways disease Current Visit: No Status: Acute Hx of COPD with home meds of Incruse Ellipta, Symbicort, albuterol. See plan above. (3) Elevated troponin Current Visit: Yes Status: Ruled-out Patient's initial troponin negative with an initial EKG showing ST depression in V3-V6. Patient went into SVT resolved with adenosine and lopressor. Patient' s repeat Troponin = 0.56. Repeat EKG showed inversion of T-waves in V2-V5. Cardiology was consulted, echo ordered, and low dose heparin drip started. Last nuclear stress test 2016, showed EF 70%, no ischemia. Echo 07/17/17: LVEF 60-65%, mild LV diastolic dysfunction, atypical septal motion consistent with post-op status. No valvular dysfunction. Plan: - Heparin drip stopped - cardiology consulted and believe due to demand ischemia no further cardiac work-up needed. signed off. (4) Hypotension Current Visit: Yes Status: Resolved Pt has powerglider and femoral central line. Currently not on Levophed. Resolved. Patient currently having tachycardia and hypertension. - increased Cardizem to 60mg Q6hrs Qualifiers: Hypotension type: unspecified hypotension type Qualified Code(s): I95.9 - Hypotension, unspecified (5) Diastolic heart failure Current Visit: No Status: Acute Hx of diastolic CHF. Nuclear stress 09/23/16 showed EF>70%, negative for ischemia. Echo is pending. BNP= 207. Patient is on Lasix at home but due to low normal BP and no rales will hold Lasix for now. Echo showed preserve EF mild LV diastolic dysfunction. On physical exam today, patient has worsening fluid overload in upper extremitites. Lasix 40 mg IVP once ordered. Will try and diureses before CPAP trial. Qualifiers: Heart failure chronicity: acute on chronic Qualified Code(s): I50.33 - Acute on chronic diastolic (congestive) heart failure (6) Bacteremia due to Gram-positive bacteria Current Visit: Yes Status: Acute See plan above. ID following. Continue VAncomycin for 4 weeks total (6 days). Stopping Zosyn after today. (7) Influenza B Current Visit: Yes Status: Acute Tamiflu completed course. (8) Colitis Current Visit: Yes Status: Acute CT of abdomen and pelvis showed colitis of the descending colon. Patient did have a copious liquid bowel movement. GI panel and C. difficile PCR was negative. Plan: - Zosyn 6/6 days completed today, will stop Zosyn tomorrow. - GI panel negative (9) Goals of care, counseling/discussion Current Visit: Yes Status: Acute Discussed with POA and he said that if need for reintubation or tracheostomy and that she would desire both of these. See history of present illness for details. Palliative care following. Subjective Principal diagnosis: acute respiratory failure with hypoxia Interval history: Ms. Scott is a 57-year-old female past medical history of COPD on 2 L, CAD status post CABG, and diastolic congestive heart failure found have acute respiratory failure secondary to COPD. 07/18, patient was extubated and is on BiPAP FiO2 35% and satting in the 90s. After extubation, patient had moderate respiratory distress with tachycardia and tachypnea on BiPAP FiO2 35%. Patient proceeded to go into SVT and was given Cardizem 5 mg. Patient had short run of V. tach and was given another 5 mg of Cardizem IVP. Patient's heart rate began to respond but patient continued increase work of breathing and decision was made to reintubate. Patient's HR returned to normal range. 07/23, patient was febrile with a maximum temperature 102.4F, patient's WBCs increased from 9.2 to 16.2 and was found to be in septic shock. Patient required Levophed. No acute events overnight. Patient is currently able to follow commands and opening her eyes to verbal stimuli. GOALS OF CARE conversation: POA was present today. I discussed with POA about the possibility of patient not being able to come off the vent and if he desired to continue treatment might need tracheostomy. I discussed the risks and benefits and asked if he had discussed life goals with her. Patient's son stated that they had discussed this and if the choice came down to tracheostomy or , patient was willing to live with a tracheostomy. Discussed with POA the quality of life would involve being in a half-way and on a ventilator constantly. He repeated that she would still desires tracheostomy if absolutely needed. Discussed with son the possibility of reintubation if extubation was attempted and he stated that he believes that is something she would want also. He stated that he understood that her lungs will eventually fail but that he wanted to continue further life supportive care. We discussed that he should reaffirm this if she was extubated because goals can change. His phone is currently not working, so we will not be able to get a hold of him but he will try and stop by daily. Objective PUL Vital signs: Last Vital Signs Temp 97.4 F L 07/28/17 08:00 Pulse 96 07/28/17 08:00 Resp 19 07/28/17 08:00 BP 123/80 07/28/17 08:00 Pulse Ox 99 07/28/17 08:00 Constitutional: intubated, resting Head: Normocephalic, atraumatic Heart: regular rhythm and rate, no murmurs Lungs: + wheezing , mech ventilator at FiO2 40% Abdomen: Soft, distended, nontender, no guarding or rigidity. Extremities: worsening edema lower extremities, upper extremities bilaterally and facial edema , No clubbing, radial pulse +2/4, capillary refill <2sec. Skin: Skin warm and dry, no jaundice Neurologic: patient is following commands, opening eyes to verbal stimuli line: powerglider, central femoral line without signs of infection Ventilator Settings Ventilator Settings: Ventilator Settings, Last 8 Hours Ventilator Mode VC+ Ventilator Mode VC+ Ventilator Mode VC+ Ventilator Mode VC+ Ventilator Mode VC+ Ventilator Mode VC+ Ventilator Mode VC+ Ventilator Mode VC+ Ventilator Mode VC+ Ventilator Mode VC+ Ventilator Mode VC+ Ventilator Tidal Volume 440 Setting Ventilator Tidal Volume 440 Setting Ventilator Tidal Volume 440 Setting Ventilator Tidal Volume 440 Setting Ventilator Tidal Volume 440 Setting Ventilator Tidal Volume 440 Setting Ventilator Tidal Volume 440 Setting Ventilator Tidal Volume 440 Setting Ventilator Tidal Volume 440 Setting Ventilator Tidal Volume 440 Setting Ventilator Tidal Volume 440 Setting Ventilator Respiratory Rate 14 Setting Ventilator Respiratory Rate 14 Setting Ventilator Respiratory Rate 14 Setting Ventilator Respiratory Rate 12 Setting Ventilator Respiratory Rate 14 Setting Ventilator Respiratory Rate 14 Setting Ventilator Respiratory Rate 14 Setting Ventilator Respiratory Rate 14 Setting Ventilator Respiratory Rate 14 Setting Ventilator Respiratory Rate 14 Setting Ventilator Respiratory Rate 14 Setting Actual Respiratory Rate 19 Actual Respiratory Rate 17 Actual Respiratory Rate 17 Actual Respiratory Rate 14 Actual Respiratory Rate 16 Actual Respiratory Rate 14 Actual Respiratory Rate 14 Actual Respiratory Rate 14 Actual Respiratory Rate 14 Actual Respiratory Rate 14 Positive End Expiratory 5 Pressure Positive End Expiratory 5 Pressure Positive End Expiratory 5 Pressure Positive End Expiratory 5 Pressure Positive End Expiratory 5 Pressure Positive End Expiratory 5 Pressure Positive End Expiratory 5 Pressure Positive End Expiratory 5 Pressure Positive End Expiratory 5 Pressure Positive End Expiratory 5 Pressure Positive End Expiratory 5 Pressure Peak Inspiratory Airway 34 Pressure Peak Inspiratory Airway 34 Pressure Peak Inspiratory Airway 34 Pressure Peak Inspiratory Airway 34 Pressure Peak Inspiratory Airway 33 Pressure Peak Inspiratory Airway 33 Pressure Peak Inspiratory Airway 32 Pressure Peak Inspiratory Airway 36 Pressure Peak Inspiratory Airway 36 Pressure Peak Inspiratory Airway 27 Pressure Results - Laboratory Findings CBC and BMP: 07/28/17 03:32 07/28/17 03:32 ABG ABG pH 7.48 pH Units (7.32-7.45) H 07/28/17 06:33 ABG pCO2 55 mmHg (35-45) H 07/28/17 06:33 ABG pO2 119 mmHg (85-104) H 07/28/17 06:33 ABG O2 Saturation 99 % (95-98) H 07/28/17 06:33 PT/INR, D-dimer PT 11.9 Seconds (9.4-12.1) 07/17/17 03:46 D-Dimer 565 ng/mLFEU (0-500) H 07/17/17 03:46 Abnormal lab findings: Abnormal lab results WBC 18.9 K/mcL (4.3-11.1) H 07/28/17 03:32 RBC 2.96 M/mcL (3.82-4.97) L 07/28/17 03:32 Hgb 8.0 g/dL (11.5-15.4) L 07/28/17 03:32 Hct 26.3 % (35.3-44.9) L 07/28/17 03:32 MCH 27.0 pg (28.0-33.3) L 07/28/17 03:32 MCHC 30.4 g/dL (31.6-35.5) L 07/28/17 03:32 MPV 12.5 fL (9.4-12.4) H 07/28/17 03:32 Immature Gran % 11.2 % (0-4) H 07/27/17 03:23 Myelocytes % 6.0 % (0) H 07/28/17 03:32 Neutrophils # 15.1 K/mcL (1.6-8.9) H 07/28/17 03:32 Nucleated RBCs/100 WBC 0.1 /100 WBC (0) H 07/28/17 03:32 Toxic Granulation Present (Not Present) A 07/27/17 03:23 Platelet Estimate Decreased (Normal) L 07/28/17 03:32 Immature Plt Fraction 15.4 % (1.1-6.1) H 07/21/17 03:40 Hypochromasia Present (Not Present) A 07/23/17 03:27 Poikilocytosis 1+ (Not Present) A 07/26/17 04:08 APTT 66.6 Seconds (26.0-36.0) H 07/20/17 03:41 D-Dimer 565 ng/mLFEU (0-500) H 07/17/17 03:46 Heparin Anti-Xa, Unfract 0.99 IU/mL (0.30-0.70) H 07/18/17 06:00 ABG pH 7.48 pH Units (7.32-7.45) H 07/28/17 06:33 ABG pCO2 55 mmHg (35-45) H 07/28/17 06:33 ABG pO2 119 mmHg (85-104) H 07/28/17 06:33 ABG HCO3 41 mEq/L (21-27) H 07/28/17 06:33 ABG Total CO2 42 mEq/L (20-26) H 07/28/17 06:33 ABG O2 Saturation 99 % (95-98) H 07/28/17 06:33 ABG Base Excess 15 mEq/L (-2 to 3) H 07/28/17 06:33 VBG pH 7.30 pH Units (7.32-7.42) L 07/24/17 08:37 VBG pCO2 61 mmHg (41-51) H 07/24/17 08:37 VBG pO2 132 mmHg (25-50) H 07/24/17 08:37 VBG HCO3 30 mEq/L (21-27) H 07/24/17 08:37 Chloride 95 mEq/L (98-107) L 07/28/17 03:32 Carbon Dioxide 44 mEq/L (23-29) H* 07/28/17 03:32 Creatinine 0.57 mg/dL (0.60-1.20) L 07/28/17 03:32 BUN/Creatinine Ratio 35 (6-26) H 07/28/17 03:32 Glucose 172 mg/dL (70-105) H 07/28/17 03:32 POC Glucose 146 (58-89) H 07/28/17 08:47 Calcium 7.6 mg/dL (8.6-10.3) L 07/28/17 03:32 Venous Ioniz Calcium 1.09 mmol/L (1.15-1.35) L 07/26/17 04:27 AST 161 Units/L (13-39) H 07/23/17 14:30 ALT 332 Units/L (7-52) H 07/23/17 14:30 Troponin I 0.69 ng/mL (< 0.04) H* 07/18/17 04:00 B-Natriuretic Peptide 207 pg/mL (Less than 100) H 07/17/17 15:27 Serum Total Protein 5.4 g/dL (6.4-8.9) L 07/23/17 14:30 Albumin 2.4 g/dL (3.5-5.7) L 07/23/17 14:30 Albumin/Globulin Ratio 0.8 (1.1-2.2) L 07/23/17 14:30 Ur Specific [place] 1.029 (1.010-1.025) H 07/17/17 05:45 Influenza Type B (PCR) DETECTED (Not Detect) A 07/23/17 14:30 Staphylococcus sp PCR DETECTED (Not Detect) A 07/22/17 11:05 Staph aureus (PCR) DETECTED (Not Detect) A 07/22/17 11:05 mecA-Methicil Res Gene DETECTED (Not Detect) A 07/22/17 11:05 - Microbiology Findings Microbiology Findings: Microbiology, Last 48 Hours 07/22/17 11:00 Blood Culture - Final Peripheral Venipuncture No growth. 07/24/17 11:45 Blood Culture - Preliminary Central Venous Catheter No growth. - Clinical Findings Intake & Output: Intake & Output 07/27/17 07/28/17 07/28/17 23:59 07:59 15:59 Intake Total 1243 / 1243 1169.3 / 1169.3 Output Total 800 / 800 1075 / 1075 650 / 650 Balance 443 / 443 94.3 / 94.3 -650 / -650 Weight 63.2 kg - VTE Documentation of Mechanical Device: Intermittent pneumatic compression device Consult Discharge Plan - Plan Referrals: NONE,PCP [Primary Care Provider] - <Yahir Sharma - Last Filed: 07/28/17 16:39> Date of Encounter: 07/28/17 Objective PUL Vital signs: Last Vital Signs Temp 98.7 F 07/28/17 12:00 Pulse 67 07/28/17 15:00 Resp 14 07/28/17 15:09 BP 94/61 07/28/17 15:00 Pulse Ox 99 07/28/17 15:09 Ventilator Settings Ventilator Settings: Ventilator Settings, Last 8 Hours Ventilator Mode VC+ Ventilator Mode VC+ Ventilator Mode VC+ Ventilator Mode VC+ Ventilator Mode VC+ Ventilator Mode VC+ Ventilator Mode VC+ Ventilator Mode VC+ Ventilator Mode VC+ Ventilator Mode VC+ Ventilator Mode VC+ Ventilator Tidal Volume 380 Setting Ventilator Tidal Volume 380 Setting Ventilator Tidal Volume 380 Setting Ventilator Tidal Volume 380 Setting Ventilator Tidal Volume 380 Setting Ventilator Tidal Volume 380 Setting Ventilator Tidal Volume 380 Setting Ventilator Tidal Volume 380 Setting Ventilator Tidal Volume 380 Setting Ventilator Tidal Volume 380 Setting Ventilator Tidal Volume 380 Setting Ventilator Respiratory Rate 14 Setting Ventilator Respiratory Rate 14 Setting Ventilator Respiratory Rate 14 Setting Ventilator Respiratory Rate 14 Setting Ventilator Respiratory Rate 14 Setting Ventilator Respiratory Rate 14 Setting Ventilator Respiratory Rate 14 Setting Ventilator Respiratory Rate 14 Setting Ventilator Respiratory Rate 14 Setting Ventilator Respiratory Rate 14 Setting Ventilator Respiratory Rate 14 Setting Actual Respiratory Rate 14 Actual Respiratory Rate 14 Actual Respiratory Rate 15 Actual Respiratory Rate 15 Actual Respiratory Rate 15 Actual Respiratory Rate 15 Actual Respiratory Rate 15 Actual Respiratory Rate 15 Actual Respiratory Rate 23 Actual Respiratory Rate 23 Actual Respiratory Rate 23 Positive End Expiratory 5 Pressure Positive End Expiratory 5 Pressure Positive End Expiratory 5 Pressure Positive End Expiratory 5 Pressure Positive End Expiratory 5 Pressure Positive End Expiratory 5 Pressure Positive End Expiratory 5 Pressure Positive End Expiratory 5 Pressure Positive End Expiratory 5 Pressure Positive End Expiratory 5 Pressure Positive End Expiratory 5 Pressure Peak Inspiratory Airway 29 Pressure Peak Inspiratory Airway 29 Pressure Peak Inspiratory Airway 23 Pressure Peak Inspiratory Airway 23 Pressure Peak Inspiratory Airway 23 Pressure Peak Inspiratory Airway 18 Pressure Peak Inspiratory Airway 18 Pressure Peak Inspiratory Airway 18 Pressure Peak Inspiratory Airway 27 Pressure Peak Inspiratory Airway 27 Pressure Peak Inspiratory Airway 27 Pressure Results - Laboratory Findings CBC and BMP: 07/28/17 03:32 07/28/17 03:32 ABG ABG pH 7.48 pH Units (7.32-7.45) H 07/28/17 06:33 ABG pCO2 55 mmHg (35-45) H 07/28/17 06:33 ABG pO2 119 mmHg (85-104) H 07/28/17 06:33 ABG O2 Saturation 99 % (95-98) H 07/28/17 06:33 PT/INR, D-dimer PT 11.9 Seconds (9.4-12.1) 07/17/17 03:46 D-Dimer 565 ng/mLFEU (0-500) H 07/17/17 03:46 Abnormal lab findings: Abnormal lab results WBC 18.9 K/mcL (4.3-11.1) H 07/28/17 03:32 RBC 2.96 M/mcL (3.82-4.97) L 07/28/17 03:32 Hgb 8.0 g/dL (11.5-15.4) L 07/28/17 03:32 Hct 26.3 % (35.3-44.9) L 07/28/17 03:32 MCH 27.0 pg (28.0-33.3) L 07/28/17 03:32 MCHC 30.4 g/dL (31.6-35.5) L 07/28/17 03:32 MPV 12.5 fL (9.4-12.4) H 07/28/17 03:32 Immature Gran % 11.2 % (0-4) H 07/27/17 03:23 Myelocytes % 6.0 % (0) H 07/28/17 03:32 Neutrophils # 15.1 K/mcL (1.6-8.9) H 07/28/17 03:32 Nucleated RBCs/100 WBC 0.1 /100 WBC (0) H 07/28/17 03:32 Toxic Granulation Present (Not Present) A 07/27/17 03:23 Platelet Estimate Decreased (Normal) L 07/28/17 03:32 Immature Plt Fraction 15.4 % (1.1-6.1) H 07/21/17 03:40 Hypochromasia Present (Not Present) A 07/23/17 03:27 Poikilocytosis 1+ (Not Present) A 07/26/17 04:08 APTT 66.6 Seconds (26.0-36.0) H 07/20/17 03:41 D-Dimer 565 ng/mLFEU (0-500) H 07/17/17 03:46 Heparin Anti-Xa, Unfract 0.99 IU/mL (0.30-0.70) H 07/18/17 06:00 ABG pH 7.48 pH Units (7.32-7.45) H 07/28/17 06:33 ABG pCO2 55 mmHg (35-45) H 07/28/17 06:33 ABG pO2 119 mmHg (85-104) H 07/28/17 06:33 ABG HCO3 41 mEq/L (21-27) H 07/28/17 06:33 ABG Total CO2 42 mEq/L (20-26) H 07/28/17 06:33 ABG O2 Saturation 99 % (95-98) H 07/28/17 06:33 ABG Base Excess 15 mEq/L (-2 to 3) H 07/28/17 06:33 VBG pH 7.30 pH Units (7.32-7.42) L 07/24/17 08:37 VBG pCO2 61 mmHg (41-51) H 07/24/17 08:37 VBG pO2 132 mmHg (25-50) H 07/24/17 08:37 VBG HCO3 30 mEq/L (21-27) H 07/24/17 08:37 Chloride 95 mEq/L (98-107) L 07/28/17 03:32 Carbon Dioxide 44 mEq/L (23-29) H* 07/28/17 03:32 Creatinine 0.57 mg/dL (0.60-1.20) L 07/28/17 03:32 BUN/Creatinine Ratio 35 (6-26) H 07/28/17 03:32 Glucose 172 mg/dL (70-105) H 07/28/17 03:32 POC Glucose 137 (58-89) H 07/28/17 12:26 Calcium 7.6 mg/dL (8.6-10.3) L 07/28/17 03:32 Venous Ioniz Calcium 1.09 mmol/L (1.15-1.35) L 07/26/17 04:27 AST 161 Units/L (13-39) H 07/23/17 14:30 ALT 332 Units/L (7-52) H 07/23/17 14:30 Troponin I 0.69 ng/mL (< 0.04) H* 07/18/17 04:00 B-Natriuretic Peptide 207 pg/mL (Less than 100) H 07/17/17 15:27 Serum Total Protein 5.4 g/dL (6.4-8.9) L 07/23/17 14:30 Albumin 2.4 g/dL (3.5-5.7) L 07/23/17 14:30 Albumin/Globulin Ratio 0.8 (1.1-2.2) L 07/23/17 14:30 Ur Specific [place] 1.029 (1.010-1.025) H 07/17/17 05:45 Vancomycin Trough 16 mcg/mL (5-10) H 07/28/17 10:25 Influenza Type B (PCR) DETECTED (Not Detect) A 07/23/17 14:30 Staphylococcus sp PCR DETECTED (Not Detect) A 07/22/17 11:05 Staph aureus (PCR) DETECTED (Not Detect) A 07/22/17 11:05 mecA-Methicil Res Gene DETECTED (Not Detect) A 07/22/17 11:05 - Microbiology Findings Microbiology Findings: Microbiology, Last 48 Hours 07/22/17 11:00 Blood Culture - Final Peripheral Venipuncture No growth. - Clinical Findings Intake & Output: Intake & Output 07/28/17 07/28/17 07/28/17 07:59 15:59 23:59 Intake Total 1269.3 / 1269.3 123.2 / 123.2 Output Total 1075 / 1075 2950 / 2950 Balance 194.3 / 194.3 -2826.8 / -2826.8 Weight 63.2 kg - Attending Attestation I saw and evaluated this patient and my medical decision-making was reviewed with the Resident Physician. I agree with the documented findings, disposition and treatment plan as described except to the extent set forth below. We independently had [id number] contact with the patient I spent 33 minutes of Critical Care time with this patient. It involved decision making of high complexity to assess, manipulate, and support vital organ system failure and/or to prevent further life threatening deterioration of the patient's condition. The time involved in the performance of separately reportable procedures was not counted toward critical care time. Patient seen and examined at bedside Labs, radiology, chart personally reviewed [employer]: Patient is conscious following commands intubated following commands. Pulm: Patient has most likely MRSA pneumonia Vs Sinusitis Vs Mastoiditis MRSA bactremia responded well to antibiotics now blood cultures are negative , patient is failing CPAP because of agitation with some V/Q mismatch due to hydrostatic pulmonary edema will continue diuresis . Cards: Hemodynamically stable for now patient is off Vasopressors FEN-GI:Feeding according to Nutrition recs Renal: Labs and output reviewed to continue diuresis ID: MRSA bactremia now resolved repeat blood culture if it is positive patient will need TYE . Heme/Onc: Labs reviewed Endo: Glucose Monitored Integ/MSK: Skin Care per routine ICU Nursing Protocol to prevent ulcers. Lines: All lines examined without evidence of infection : Dispo: critically ill CODE: Full Code . Spoke with POA looks like patients wants re intubated if she gets reintubated will need tracheostomy
--- NOTE | 2017-07-28 10:05 | Palliative Progress Note ---
Date of Encounter: 07/28/17 Time of Encounter: 07:15 - Assessment and plan (1) Acute and chronic respiratory failure with hypercapnia Current Visit: No Status: Resolved Assessment and plan: Patient on ventilator. Attempts to wean her ongoing by the hospitalist team. We will check today find where the heart stop is for tracheostomy. (2) Encephalopathy Current Visit: No Status: Resolved Assessment and plan: This may very well be improving. Continue to follow see what we can do after we get the patient off the vent. (3) Goals of care, counseling/discussion Current Visit: Yes Status: Acute Assessment and plan: Patient is still full code, nurse practitioner has been in contact with patient' s son Kiet. Plan on trying to call Kiet today. I note the hard stop is for tracheotomy. (4) Gram-positive bacteremia Current Visit: Yes Status: Acute Assessment and plan: On antibiotics for this as well as Tamiflu for flu plan per hospitalist/ wheel truer team. Infectious disease is also on board plan per hospitalist and infectious disease team. - Time Spent With Patient Total time spent is greater than 50% in coordination of care (as documented) at patient's floor/unit and/or counseling patient: - Subjective Interval history: No acute events noted last night. The patient was able to make it for 10 minutes EPAP on Friday, not able to be CPAP at all yesterday. Morning the patient is on sedation vacation appears to be tolerating it. Yesterday she did not. Again no events noted overnight. It is in no distress. - Constitutional Vitals: Abnormal lab results WBC 18.9 K/mcL (4.3-11.1) H 07/28/17 03:32 RBC 2.96 M/mcL (3.82-4.97) L 07/28/17 03:32 Hgb 8.0 g/dL (11.5-15.4) L 07/28/17 03:32 Hct 26.3 % (35.3-44.9) L 07/28/17 03:32 MCH 27.0 pg (28.0-33.3) L 07/28/17 03:32 MCHC 30.4 g/dL (31.6-35.5) L 07/28/17 03:32 MPV 12.5 fL (9.4-12.4) H 07/28/17 03:32 Immature Gran % 11.2 % (0-4) H 07/27/17 03:23 Myelocytes % 6.0 % (0) H 07/28/17 03:32 Neutrophils # 15.1 K/mcL (1.6-8.9) H 07/28/17 03:32 Nucleated RBCs/100 WBC 0.1 /100 WBC (0) H 07/28/17 03:32 Toxic Granulation Present (Not Present) A 07/27/17 03:23 Platelet Estimate Decreased (Normal) L 07/28/17 03:32 Immature Plt Fraction 15.4 % (1.1-6.1) H 07/21/17 03:40 Hypochromasia Present (Not Present) A 07/23/17 03:27 Poikilocytosis 1+ (Not Present) A 07/26/17 04:08 APTT 66.6 Seconds (26.0-36.0) H 07/20/17 03:41 D-Dimer 565 ng/mLFEU (0-500) H 07/17/17 03:46 Heparin Anti-Xa, Unfract 0.99 IU/mL (0.30-0.70) H 07/18/17 06:00 ABG pH 7.48 pH Units (7.32-7.45) H 07/28/17 06:33 ABG pCO2 55 mmHg (35-45) H 07/28/17 06:33 ABG pO2 119 mmHg (85-104) H 07/28/17 06:33 ABG HCO3 41 mEq/L (21-27) H 07/28/17 06:33 ABG Total CO2 42 mEq/L (20-26) H 07/28/17 06:33 ABG O2 Saturation 99 % (95-98) H 07/28/17 06:33 ABG Base Excess 15 mEq/L (-2 to 3) H 07/28/17 06:33 VBG pH 7.30 pH Units (7.32-7.42) L 07/24/17 08:37 VBG pCO2 61 mmHg (41-51) H 07/24/17 08:37 VBG pO2 132 mmHg (25-50) H 07/24/17 08:37 VBG HCO3 30 mEq/L (21-27) H 07/24/17 08:37 Chloride 95 mEq/L (98-107) L 07/28/17 03:32 Carbon Dioxide 44 mEq/L (23-29) H* 07/28/17 03:32 Creatinine 0.57 mg/dL (0.60-1.20) L 07/28/17 03:32 BUN/Creatinine Ratio 35 (6-26) H 07/28/17 03:32 Glucose 172 mg/dL (70-105) H 07/28/17 03:32 POC Glucose 146 (58-89) H 07/28/17 08:47 Calcium 7.6 mg/dL (8.6-10.3) L 07/28/17 03:32 Venous Ioniz Calcium 1.09 mmol/L (1.15-1.35) L 07/26/17 04:27 AST 161 Units/L (13-39) H 07/23/17 14:30 ALT 332 Units/L (7-52) H 07/23/17 14:30 Troponin I 0.69 ng/mL (< 0.04) H* 07/18/17 04:00 B-Natriuretic Peptide 207 pg/mL (Less than 100) H 07/17/17 15:27 Serum Total Protein 5.4 g/dL (6.4-8.9) L 07/23/17 14:30 Albumin 2.4 g/dL (3.5-5.7) L 07/23/17 14:30 Albumin/Globulin Ratio 0.8 (1.1-2.2) L 07/23/17 14:30 Ur Specific [place] 1.029 (1.010-1.025) H 07/17/17 05:45 Influenza Type B (PCR) DETECTED (Not Detect) A 07/23/17 14:30 Staphylococcus sp PCR DETECTED (Not Detect) A 07/22/17 11:05 Staph aureus (PCR) DETECTED (Not Detect) A 07/22/17 11:05 mecA-Methicil Res Gene DETECTED (Not Detect) A 07/22/17 11:05 General appearance: Present: no acute distress - Respiratory Respiratory exam: Present: decreased breath sounds (Sedated on vent) - Cardiovascular Cardiovascular exam: Present: RRR - GI/Abdominal GI/Abdominal exam: Present: hypoactive bowel sounds, soft. Absent: tenderness - Extremities Exam Extremities exam: Present: pedal edema. Absent: tenderness - Neurological Exam Neurological exam: Present: altered (Does respond to voice.) - Psychiatric Psychiatric exam: Absent: agitated, anxious (Currently on sedation vacation is not anxious or agitated appearing.) - Skin Skin exam: Present: dry, warm Palliative Quality Palliative Quality: Screen for Code Status: Yes, Screen for Goals of Care: NA, Screen for Pain: Yes, If Pain Regimen Started, Initiate Bowel Regimen: NA, Screen for Nausea/Vomitting: NA Code Status: 07/17/17 11:52 FULL [Resuscitation Status: Active] [RES] Routine Comment: Resuscitation Status: Full Code - Labs CBC & Chem 7: 07/28/17 03:32 07/28/17 03:32 Labs: Laboratory Results - last 24 hr 07/27/17 07/27/17 07/27/17 03:23 12:12 15:13 WBC RBC Hgb Hct MCV MCH MCHC RDW Plt Count MPV Seg Neutrophils % Lymphocytes % Monocytes % Myelocytes % Neutrophils # Lymphocytes # Monocytes # Nucleated RBCs/100 WBC Platelet Estimate Sample Site ABG pH ABG pCO2 ABG pO2 ABG HCO3 ABG Total CO2 ABG O2 Saturation ABG Base Excess Respiration Rate O2 Delivery Device Blood Gas Modality Inspired O2 Tidal Volume PEEP Sodium Potassium Chloride Carbon Dioxide BUN Creatinine Est GFR ( Amer) Est GFR (Non-Af Amer) BUN/Creatinine Ratio Glucose POC Glucose 210 H 163 H Calculated Osmolality Calcium Magnesium 1.7 07/27/17 07/27/17 07/27/17 16:00 19:43 23:55 WBC RBC Hgb Hct MCV MCH MCHC RDW Plt Count MPV Seg Neutrophils % Lymphocytes % Monocytes % Myelocytes % Neutrophils # Lymphocytes # Monocytes # Nucleated RBCs/100 WBC Platelet Estimate Sample Site ABG pH ABG pCO2 ABG pO2 ABG HCO3 ABG Total CO2 ABG O2 Saturation ABG Base Excess Respiration Rate O2 Delivery Device Blood Gas Modality Inspired O2 Tidal Volume PEEP Sodium 142 Potassium 3.1 L Chloride 94 L Carbon Dioxide 43 H* BUN 19 Creatinine 0.58 L Est GFR ( Amer) > 60 Est GFR (Non-Af Amer) > 60 BUN/Creatinine Ratio 33 H Glucose 153 H POC Glucose 136 H 165 H Calculated Osmolality 299 Calcium 7.5 L Magnesium 07/28/17 07/28/17 07/28/17 03:32 03:32 04:42 WBC 18.9 H RBC 2.96 L Hgb 8.0 L Hct 26.3 L MCV 88.9 MCH 27.0 L MCHC 30.4 L RDW 14.5 Plt Count 142 MPV 12.5 H Seg Neutrophils % 80.0 Lymphocytes % 12.0 Monocytes % 2.0 Myelocytes % 6.0 H Neutrophils # 15.1 H Lymphocytes # 2.3 Monocytes # 0.4 Nucleated RBCs/100 WBC 0.1 H Platelet Estimate Decreased L Sample Site ABG pH ABG pCO2 ABG pO2 ABG HCO3 ABG Total CO2 ABG O2 Saturation ABG Base Excess Respiration Rate O2 Delivery Device Blood Gas Modality Inspired O2 Tidal Volume PEEP Sodium 140 Potassium 3.5 Chloride 95 L Carbon Dioxide 44 H* BUN 20 Creatinine 0.57 L Est GFR ( Amer) > 60 Est GFR (Non-Af Amer) > 60 BUN/Creatinine Ratio 35 H Glucose 172 H POC Glucose 162 H Calculated Osmolality 297 Calcium 7.6 L Magnesium 2.0 07/28/17 07/28/17 06:33 08:47 WBC RBC Hgb Hct MCV MCH MCHC RDW Plt Count MPV Seg Neutrophils % Lymphocytes % Monocytes % Myelocytes % Neutrophils # Lymphocytes # Monocytes # Nucleated RBCs/100 WBC Platelet Estimate Sample Site R Radial ABG pH 7.48 H ABG pCO2 55 H ABG pO2 119 H ABG HCO3 41 H ABG Total CO2 42 H ABG O2 Saturation 99 H ABG Base Excess 15 H Respiration Rate 14 O2 Delivery Device Adult Vent Blood Gas Modality VC Inspired O2 40.0 Tidal Volume 440 PEEP 5 Sodium Potassium Chloride Carbon Dioxide BUN Creatinine Est GFR ( Amer) Est GFR (Non-Af Amer) BUN/Creatinine Ratio Glucose POC Glucose 146 H Calculated Osmolality Calcium Magnesium - ABG Interpretation ABG results: ABG ABG pH 7.48 pH Units (7.32-7.45) H 07/28/17 06:33 ABG pCO2 55 mmHg (35-45) H 07/28/17 06:33 ABG pO2 119 mmHg (85-104) H 07/28/17 06:33 ABG O2 Saturation 99 % (95-98) H 07/28/17 06:33 PT/INR, D-dimer PT 11.9 Seconds (9.4-12.1) 07/17/17 03:46 D-Dimer 565 ng/mLFEU (0-500) H 07/17/17 03:46 Consult Discharge Plan - Plan Referrals: NONE,PCP [Primary Care Provider] -
--- NOTE | 2017-07-28 10:27 | Infectious Disease Progress No ---
Date of Encounter: 07/28/17 Time of Encounter: 08:30 - Assessment and Plan (1) Septic shock due to methicillin resistant Staphylococcus aureus Current Visit: Yes Status: Acute Patient had WBC 16.9, hypotension, increased oxygen requirements on mechanical ventilation Organism: MRSA in sputum 07/28: WBC elevated to 18, patients respiratory status more diminished compared to the last few days with increased work effort. Continues to clinically meet sepsis criteria. Sputum culture 07/19/2017 positive for MRSA Blood culture 07/22/2017 positive for MRSA Sputum culture 07/22/2017 positive for MRSA Respiratory infectious panel positive for influenza B Legionella urine Antigen negative Blood culture (central line) Preliminary negative for growth. 07/28: WBC 18.9, patients respiratory status clinically improved, Continues to require mechanical ventilation. Plan: - Continue vancomycin pharmacy to dose total 4 weeks -TYE recommended with MRSA bacteremia (2) Ventilator-associated bacterial pneumonia Current Visit: Yes Status: Acute Patient required mechanical ventilation since 07/17/17, initial sputum culture negative, sputum culture from 07/19 and 07/22 positive for MRSA - Complicated risk factors include severe COPD, mechanical ventilation - CXR 07/22 concerning for Left lower lobe infiltrate, CT ABD/Pelvis- Bilateral lower lobe infiltrates, left greater than right. Trace left pleural effusion is suggested. CrCl: 72 - Respiratory infectious panel- positive for influenza B, MecA gene and staph aureus, Staphylococcus sp - Legionella urine antigen- NEGATIVE - peripheral smear- pending - Urine strep pneumo- pending Plan: - IV Vancomycin pharmacy to dose (Goal Trough 15) for 4wks (Through August 11) ( Day#8) - Tamiflu 75mg BID total 5 days- Day 5 (3) Acute and chronic respiratory failure with hypercapnia Current Visit: No Status: Chronic Acute on chronic respiratory failure in a patient with known Severe COPD on hospice care. Respiratory infectious panel positive for influenza B, Sputum culture- MRSA growth. CXR and CT abd/pelvis demonstrate Bilateral lobe infiltrates. - Continue mechanical ventilation management per ICU team - Continue breathing treatments and IV steroids for management. - Continue Antibiotic choice as discussed above. (4) Pansinusitis Current Visit: Yes Status: Acute Pansinusitis and mastoiditis identified on head CT performed 07/22/17 - Organism unknown - Primary team consult to ENT for further evaluation and management. - Antibiotic coverage for MRSA as discussed above. - Continue IV Zosyn per ENT ( Currently day 8) Qualifiers: Chronicity: chronic Qualified Code(s): J32.4 - Chronic pansinusitis (5) Thrombocytopenia Current Visit: Yes Status: Acute Persistent stable thrombocytopenia, in the setting of acute illness. - Continue to monitor daily. - Continue to avoid Zyvox as it may worsen thrombocytopenia. (6) Leukocytosis Current Visit: Yes Status: Acute WBC 18.9, elevated during treatment for MRSA pneumonia, bacteremia. Clinically not much improvement in patient's condition. Suspect likely secondary to acute illness and stress. - Elevation in the setting of IV steroids, influenza B, MRSA pneumonia, gram- positive bacteremia and colitis - Continue to monitor daily. Qualifiers: Leukocytosis type: unspecified Qualified Code(s): D72.829 - Elevated white blood cell count, unspecified (7) MRSA bacteremia Current Visit: Yes Status: Acute Acutely ill 57-year-old female intubated sedated, on mechanical ventilation. - Blood culture 1 positive for MRSA - Sputum cultures positive for MRSA - PCR + MecA gene, staph species - Blood culture from Central line ordered Plan: - Vancomycin pharmacy to dose (trough 15) total 4wks ( anticipated stop date August 18) - Day# 5 (8) Persistent fever Current Visit: Yes Status: Acute Resolved - Continue treatment for influenza B, MRSA pneumonia, gram-positive bacteremia and colitis (9) Influenza B Current Visit: Yes Status: Acute RIP positive for Influenza B - Unsure if this was the cause for initial decompensation followed by superimposed MRSA pneumonia as no influenza swab or RIP collected at the time of admission. Plan: Tamiflu 75mg twice a day total 5 days- Day 5 (10) Colitis Current Visit: Yes Status: Acute Patient intubated, sedated with distended abdomen now with liquid stool with rectal tube. - CT abdomen/pelvis demonstrates findings suggestive of mild focal colitis involving the distal descending colon. - Discontinue IV Zosyn - Subjective Interval history: Patient continues to be intubated and sedated, remains stable overnight. No acute changes per nursing. She is responsive to vocal commands and moves her fingers and her toes and nods her head. Patient continues to have difficulty with CPAP trials, continues on mechanical ventilation assist control. Infect Dis PN-Objective Data - Labs CBC & Chem 7: 07/28/17 03:32 07/28/17 03:32 Labs: Laboratory Results - last 24 hr 07/27/17 07/27/17 07/27/17 03:23 12:12 15:13 WBC RBC Hgb Hct MCV MCH MCHC RDW Plt Count MPV Seg Neutrophils % Lymphocytes % Monocytes % Myelocytes % Neutrophils # Lymphocytes # Monocytes # Nucleated RBCs/100 WBC Platelet Estimate Sample Site ABG pH ABG pCO2 ABG pO2 ABG HCO3 ABG Total CO2 ABG O2 Saturation ABG Base Excess Respiration Rate O2 Delivery Device Blood Gas Modality Inspired O2 Tidal Volume PEEP Sodium Potassium Chloride Carbon Dioxide BUN Creatinine Est GFR ( Amer) Est GFR (Non-Af Amer) BUN/Creatinine Ratio Glucose POC Glucose 210 H 163 H Calculated Osmolality Calcium Magnesium 1.7 07/27/17 07/27/17 07/27/17 16:00 19:43 23:55 WBC RBC Hgb Hct MCV MCH MCHC RDW Plt Count MPV Seg Neutrophils % Lymphocytes % Monocytes % Myelocytes % Neutrophils # Lymphocytes # Monocytes # Nucleated RBCs/100 WBC Platelet Estimate Sample Site ABG pH ABG pCO2 ABG pO2 ABG HCO3 ABG Total CO2 ABG O2 Saturation ABG Base Excess Respiration Rate O2 Delivery Device Blood Gas Modality Inspired O2 Tidal Volume PEEP Sodium 142 Potassium 3.1 L Chloride 94 L Carbon Dioxide 43 H* BUN 19 Creatinine 0.58 L Est GFR ( Amer) > 60 Est GFR (Non-Af Amer) > 60 BUN/Creatinine Ratio 33 H Glucose 153 H POC Glucose 136 H 165 H Calculated Osmolality 299 Calcium 7.5 L Magnesium 07/28/17 07/28/17 07/28/17 03:32 03:32 04:42 WBC 18.9 H RBC 2.96 L Hgb 8.0 L Hct 26.3 L MCV 88.9 MCH 27.0 L MCHC 30.4 L RDW 14.5 Plt Count 142 MPV 12.5 H Seg Neutrophils % 80.0 Lymphocytes % 12.0 Monocytes % 2.0 Myelocytes % 6.0 H Neutrophils # 15.1 H Lymphocytes # 2.3 Monocytes # 0.4 Nucleated RBCs/100 WBC 0.1 H Platelet Estimate Decreased L Sample Site ABG pH ABG pCO2 ABG pO2 ABG HCO3 ABG Total CO2 ABG O2 Saturation ABG Base Excess Respiration Rate O2 Delivery Device Blood Gas Modality Inspired O2 Tidal Volume PEEP Sodium 140 Potassium 3.5 Chloride 95 L Carbon Dioxide 44 H* BUN 20 Creatinine 0.57 L Est GFR ( Amer) > 60 Est GFR (Non-Af Amer) > 60 BUN/Creatinine Ratio 35 H Glucose 172 H POC Glucose 162 H Calculated Osmolality 297 Calcium 7.6 L Magnesium 2.0 07/28/17 07/28/17 06:33 08:47 WBC RBC Hgb Hct MCV MCH MCHC RDW Plt Count MPV Seg Neutrophils % Lymphocytes % Monocytes % Myelocytes % Neutrophils # Lymphocytes # Monocytes # Nucleated RBCs/100 WBC Platelet Estimate Sample Site R Radial ABG pH 7.48 H ABG pCO2 55 H ABG pO2 119 H ABG HCO3 41 H ABG Total CO2 42 H ABG O2 Saturation 99 H ABG Base Excess 15 H Respiration Rate 14 O2 Delivery Device Adult Vent Blood Gas Modality VC Inspired O2 40.0 Tidal Volume 440 PEEP 5 Sodium Potassium Chloride Carbon Dioxide BUN Creatinine Est GFR ( Amer) Est GFR (Non-Af Amer) BUN/Creatinine Ratio Glucose POC Glucose 146 H Calculated Osmolality Calcium Magnesium Cultures: Cultures 07/22/17 11:00 Blood Culture - Final Peripheral Venipuncture No growth. 07/24/17 11:45 Blood Culture - Preliminary Central Venous Catheter No growth. 07/22/17 20:44 Sputum Culture - Final Sputum Methicillin Resistant S.aureus 07/22/17 11:05 Blood Culture - Final Peripheral Venipuncture Methicillin Resistant S.aureus 07/23/17 14:30 Legionella Antigen - Final Urine,Catheterized Streptococcus pneumoniae Antigen (M - Final 07/19/17 16:12 Sputum Culture - Final Sputum Methicillin Resistant S.aureus 07/17/17 15:27 Sputum Culture - Final Sputum Serology 07/24/17 07/23/17 07/22/17 Range/Units 11:45 14:30 11:05 Stl C. cayetanensis PCR Not detected (Not detect) Stool Rotavirus A PCR Not detected (Not detect) Stl Adenov F 40/41 PCR Not detected (Not detect) Stool Astrovirus (PCR) Not detected (Not detect) Stool Campylobacter PCR Not detected (Not detect) Stl C. diff Tox A/B PCR Not detected (Not detect) Stool Cryptosporidium PCR Not detected (Not detect) Stl Sh Tox Pr E STEC PCR Not detected (Not detect) Stool E coli O157 PCR Not detected (Not detect) Stl Enterotoxigenic E PCR Not detected (Not detect) Stool EPEC (PCR) Not detected (Not detect) Stool EAEC (PCR) Not detected (Not detect) Stl E. histolytica PCR Not detected (Not detect) Stool Giardia Lamblia PCR Not detected (Not detect) Stool Salmonella PCR Not detected (Not detect) Stool Sapovirus (PCR) Not detected (Not detect) Stl P. shigelloides PCR Not detected (Not detect) Stl Shigella/EIEC PCR Not detected (Not detect) St Y.enterocolitica PCR Not detected (Not detect) Stool Vibrio (PCR) Not detected (Not detect) Stl Vibrio cholerae PCR Not detected (Not detect) Stl Norovirus GI/GII PCR Not detected (Not detect) Stl GI Panel (PCR) Com See below A. baumannii (PCR) Not Detected (Not Detect) Chlamy pneumoniae PCR Not Detected (Not Detect) Adenovirus (PCR) Not Detected (Not Detect) B. pertussis DNA (PCR) Not Detected (Not Detect) B.parapertussis DNA PCR Not Detected (Not Detect) Nayely albicans (PCR) Not Detected (Not Detect) C. glabrata (PCR) Not Detected (Not Detect) C. krusei (PCR) Not Detected (Not Detect) C. parapsilosis (PCR) Not Detected (Not Detect) C. tropicalis (PCR) Not Detected (Not Detect) Coronavirus OC43 (PCR) Not Detected (Not Detect) Coronavirus HKU1 (PCR) Not Detected (Not Detect) Coronavirus 229E (PCR) Not Detected (Not Detect) Coronavirus NL63 (PCR) Not Detected (Not Detect) Enterobacteriac sp PCR Not Detected (Not Detect) E. cloacae complex PCR Not Detected (Not Detect) Enterococcus sp PCR Not Detected (Not Detect) E. coli (PCR) Not Detected (Not Detect) H. influenzae (PCR) Not Detected (Not Detect) Human Metapneumovir PCR Not Detected (Not Detect) Influenza A (H1) PCR Not Detected (Not Detect) Influ A (H1N1/09) PCR Not Detected (Not Detect) Influenza A (H3) PCR Not Detected (Not Detect) Influenza A Untype (PCR) Not Detected (Not Detect) Influenza Type B (PCR) DETECTED A (Not Detect) Klebsiella oxytoca PCR Not Detected (Not Detect) Klebsiella pneumoniae Not Detected (Not Detect) List. monocytogenes PCR Not Detected (Not Detect) M.pneumoniae DNA (PCR) Not Detected (Not Detect) N. meningitidis (PCR) Not Detected (Not Detect) Parainfluenza 1 (PCR) Not Detected (Not Detect) Parainfluenza 2 (PCR) Not Detected (Not Detect) Parainfluenza 3 (PCR) Not Detected (Not Detect) Parainfluenza 4 (PCR) Not Detected (Not Detect) Proteus species (PCR) Not Detected (Not Detect) RSV (PCR) Not Detected (Not Detect) Entero/Rhino (PCR) Not Detected (Not Detect) Serratia marcescens PCR Not Detected (Not Detect) Staphylococcus sp PCR DETECTED A (Not Detect) Staph aureus (PCR) DETECTED A (Not Detect) mecA-Methicil Res Gene DETECTED A (Not Detect) Streptococcus sp PCR Not Detected (Not Detect) Group A Strep DNA Not Detected (Not Detect) Group B Strep (PCR) Not Detected (Not Detect) Strep pneumoniae (PCR) Not Detected (Not Detect) P. aeruginosa (PCR) Not Detected (Not Detect) Tristian/B-Vanco Res Genes N/A (Not Detect) KPC (blaKPC) Detect PCR N/A (Not Detect) Exam - Constitutional Vitals: Temp Pulse Resp BP Pulse Ox 98.6 F 105 19 145/90 99 07/28/17 08:00 07/28/17 10:00 07/28/17 10:00 07/28/17 10:07/28/17 10:00 - Head Additional comments: General: Patient intubated and sedated requiring mechanical ventilation. HEENT: Patient has periorbital edema, oral edema with endotracheal tube, OG tube in place. Chest: Symmetric bilateral correlating with mechanical ventilation. Cardiac: Regular rate and rhythm, positive S1 and S2. no bruits appreciated bilateral carotids, Radial pulses 2+ bilateral, posterior tibial and dorsal pedal pulses 2+ bilateral. Respiratory:Diffuse rhonchi Abdomen: Distended, tympanic, hypoactive bowel sounds. Extremities: Symmetric bilateral, bilateral upper and lower extremities demonstrate anasarca - VTE Documentation of Mechanical Device: Intermittent pneumatic compression device Consult Discharge Plan - Plan Referrals: NONE,PCP [Primary Care Provider] - - Attending Attestation I examined this patient and my medical decision-making was reviewed with the Resident Physician. I agree with the documented findings, disposition and treatment plan as described except to the extent set forth below. Patient clinically is doing better. She still requiring FiO2 of 40 and PEEP of 5. They could not do a weaning trial CPAP today because as soon as his sedation was off patient became very anxious tachycardic and blood pressure went up. 2. Was on hold because he would not try CPAP trial She is off pressors Patient has no output fair rectal tube Good urine output after Lasix Not requiring any pressors At this point continue vancomycin Repeat blood cultures to make sure the bacteremia has resolved Get a chest x-ray if clinically patient doing okay we will consider the seeing the [place] Discussed with the ICU team
[2017-07-28] MEDS: Dexmedetomidine HCl 400 MCG/100 ML MLS IVC SCH ×2 (11:32→21:57)
[2017-07-28] MEDS: Potassium Chloride 10 MEQ in 0.9 % Sodium Chloride 100 ML IVPB PRN ×4 (21:10→23:33)
[2017-07-29] MEDS: Ipratropium/Albuterol Neb 3 ML IH SCH ×6 (03:42→23:34)
[2017-07-29] MEDS: Piperacillin/Tazobactam 3.375 GM in 0.9 % Sodium Chloride Mini Bag 100 ML IVPB SCH (03:52)
[2017-07-29] MEDS: Lacri-Lube 3.5 GM TUBE BOTH EYES SCH ×6 (03:52→23:43)
[2017-07-29] MEDS ORDERED: Furosemide 40 MG/4 ML VIAL IVP ONE ×2 (04:00→22:59)
[2017-07-29 04:03] LABS: Hematocrit 29.1 % (35.3-44.9); Hemoglobin 8.9 g/dL (11.5-15.4); Mean Corpuscular HGB Conc 30.6 g/dL (31.6-35.5); Mean Corpuscular Hemoglobin 27.1 pg (28.0-33.3); Mean Corpuscular Volume 88.7 fL (83.0-100.0); Mean Platelet Volume 12.4 fL (9.4-12.4); Nucleated Red Blood Cells 0.2 /100 WBC (0); Platelet Count 219 K/mcL (140-400); Red Blood Count 3.28 M/mcL (3.82-4.97); Red Cell Distribution Width 14.5 % (11.5-14.5)
[2017-07-29 04:05] LABS: VBG HCO3 47 mEq/L (21-27); VBG PCO2 64 mmHg (41-51); VBG PH 7.47 pH Units (7.32-7.42); VBG PO2 100 mmHg (25-50)
[2017-07-29 04:26] LABS: BUN/Creatinine Ratio 40 (6-26); Blood Urea Nitrogen 25 mg/dL (6-20); Calcium 7.9 mg/dL (8.6-10.3); Carbon Dioxide 43 mEq/L (23-29); Chloride 92 mEq/L (98-107); Glucose 139 mg/dL (70-105); Osmolality,Calculated 297 (280-300); Potassium 3.9 mEq/L (3.5-5.1); Sodium 140 mEq/L (136-145); eGFR For African Americans > 60 (> 60); eGFR For Non-African Americans > 60 (> 60)
[2017-07-29 04:29] LABS: Magnesium 1.9 mg/dL (1.6-2.6); Phosphorous 2.8 mg/dL (2.7-4.5)
[2017-07-29] MEDS: Insulin LISPRO 300 UNITS/3 ML VIAL SQ SCH ×5 (04:33→21:29)
[2017-07-29 04:41] LABS: Neutrophils # 20.9 K/mcL (1.6-8.9); Platelet Estimate Normal (Normal)
[2017-07-29] MEDS: *HR* Heparin 5,000 UNIT/ML VIAL SQ SCH ×2 (04:54→17:49)
[2017-07-29] MEDS: Potassium Chloride 10 MEQ in 0.9 % Sodium Chloride 100 ML IVPB PRN ×4 (05:11→09:00)
[2017-07-29] MEDS: Chlorhexidine Rinse 15 ML MOUTHWASH MM SCH ×2 (07:41→21:30)
[2017-07-29] MEDS: Nicotine 14 MG PATCH.TD24 TD SCH (07:41)
[2017-07-29] MEDS: Nystatin SUSP 5 ML UD.LIQ PO SCH (07:41)
[2017-07-29] MEDS: Pantoprazole 40 MG VIAL IVP SCH (07:41)
[2017-07-29] MEDS: MethylPREDNISolone 40 MG/ML VIAL IVP SCH ×2 (07:41→17:49)
[2017-07-29] MEDS: Norepinephrine 4 MG in D5% in Water 250 ML IVC SCH (07:42)
[2017-07-29] MEDS: Budesonide/Formoterol 160/4.5 MDI IH SCH ×2 (07:55→19:39)
--- NOTE | 2017-07-29 08:43 | Infectious Disease Progress No ---
Date of Encounter: 07/29/17 Time of Encounter: 08:43 - Assessment and Plan (1) Septic shock due to methicillin resistant Staphylococcus aureus Current Visit: Yes Status: Acute Patient had WBC 16.9, hypotension, increased oxygen requirements on mechanical ventilation Organism: MRSA in sputum. Sputum culture 07/19/2017 positive for MRSA Blood culture 07/22/2017 positive for MRSA Sputum culture 07/22/2017 positive for MRSA Respiratory infectious panel positive for influenza B Legionella urine Antigen negative Blood culture (central line) Preliminary negative for growth. 07/28: WBC 18.9, patients respiratory status clinically improved, Continues to require mechanical ventilation. 07/29: WBC elevated to 24.9, clinically patient appears to have improved. Elevation may be secondary to steroids. Plan: - Continue vancomycin pharmacy to dose total 4 weeks -TYE continues to be recommended with MRSA bacteremia (2) Ventilator-associated bacterial pneumonia Current Visit: Yes Status: Acute Patient required mechanical ventilation since 07/17/17, initial sputum culture negative, sputum culture from 07/19 and 07/22 positive for MRSA - Complicated risk factors include severe COPD, mechanical ventilation - CXR 07/22 concerning for Left lower lobe infiltrate, CT ABD/Pelvis- Bilateral lower lobe infiltrates, left greater than right. Trace left pleural effusion is suggested. CrCl: 72 - Respiratory infectious panel- positive for influenza B, MecA gene and staph aureus, Staphylococcus sp - Legionella urine antigen- NEGATIVE - peripheral smear- pending - Urine strep pneumo- pending Plan: - IV Vancomycin pharmacy to dose (Goal Trough 15) for 4wks (Through August 11) ( Day#9) - Tamiflu Discontinued 07/28 (3) Acute and chronic respiratory failure with hypercapnia Current Visit: No Status: Chronic Acute on chronic respiratory failure in a patient with known Severe COPD on hospice care. Respiratory infectious panel positive for influenza B, Sputum culture- MRSA growth. CXR and CT abd/pelvis demonstrate Bilateral lobe infiltrates. - Continue mechanical ventilation management per ICU team - Continue breathing treatments and IV steroids for management. - Continue Antibiotic choice as discussed above. (4) Pansinusitis Current Visit: Yes Status: Acute Pansinusitis and mastoiditis identified on head CT performed 07/22/17 - Organism unknown - Primary team consult to ENT for further evaluation and management. - Antibiotic coverage for MRSA as discussed above. - Discontinue IV Zosyn ( Currently day 9) Qualifiers: Chronicity: chronic Qualified Code(s): J32.4 - Chronic pansinusitis (5) Thrombocytopenia Current Visit: Yes Status: Acute Persistent stable thrombocytopenia, in the setting of acute illness. - Continue to monitor daily. - Continue to avoid Zyvox as it may worsen thrombocytopenia. (6) Leukocytosis Current Visit: Yes Status: Acute WBC 24.9, Clinical picture has improved. Suspect likely secondary to acute illness/ steroids and stress. - Elevation in the setting of IV steroids, influenza B, MRSA pneumonia, gram- positive bacteremia and colitis - Continue to monitor daily. Qualifiers: Leukocytosis type: unspecified Qualified Code(s): D72.829 - Elevated white blood cell count, unspecified (7) MRSA bacteremia Current Visit: Yes Status: Acute Acutely ill 57-year-old female intubated on mechanical ventilation. - Blood culture 1 positive for MRSA - Sputum cultures positive for MRSA - PCR + MecA gene, staph species - Blood culture from Central line no growth Plan: - Vancomycin as discussed above. (8) Persistent fever Current Visit: Yes Status: Acute Resolved - Continue treatment for influenza B, MRSA pneumonia, gram-positive bacteremia and colitis (9) Influenza B Current Visit: Yes Status: Resolved RIP positive for Influenza B - Unsure if this was the cause for initial decompensation followed by superimposed MRSA pneumonia as no influenza swab or RIP collected at the time of admission. Completed 5 days of Tamiflu. (10) Colitis Current Visit: Yes Status: Resolved Patient intubated, sedated with distended abdomen now with liquid stool with rectal tube. - CT abdomen/pelvis demonstrates findings suggestive of mild focal colitis involving the distal descending colon. - Discontinue IV Zosyn - Subjective Interval history: Patient continues to be intubated and currently on spontaneous breathing trial tolerating well. She is alert and responds to vocal commands. Does not appear to be in distress. ICU team plans for possible extubation today. No acute events overnight. Infect Dis PN-Objective Data - Labs CBC & Chem 7: 07/29/17 03:45 07/29/17 03:45 Labs: Laboratory Results - last 24 hr 07/28/17 07/28/17 07/28/17 08:47 10:25 12:26 WBC RBC Hgb Hct MCV MCH MCHC RDW Plt Count MPV Immature Gran % Seg Neutrophils % Lymphocytes % Monocytes % Eosinophils % Basophils % Metamyelocytes % Myelocytes % Neutrophils # Lymphocytes # Monocytes # Eosinophils # Basophils # Nucleated RBCs/100 WBC Platelet Estimate VBG pH VBG pCO2 VBG pO2 VBG HCO3 Sodium Potassium Chloride Carbon Dioxide BUN Creatinine Est GFR ( Amer) Est GFR (Non-Af Amer) BUN/Creatinine Ratio Glucose POC Glucose 146 H 137 H Calculated Osmolality Calcium Phosphorus Magnesium Vancomycin Trough 16 H 07/28/17 07/28/17 07/28/17 16:53 17:20 19:52 WBC RBC Hgb Hct MCV MCH MCHC RDW Plt Count MPV Immature Gran % Seg Neutrophils % Lymphocytes % Monocytes % Eosinophils % Basophils % Metamyelocytes % Myelocytes % Neutrophils # Lymphocytes # Monocytes # Eosinophils # Basophils # Nucleated RBCs/100 WBC Platelet Estimate VBG pH VBG pCO2 VBG pO2 VBG HCO3 Sodium Potassium 3.7 Chloride Carbon Dioxide BUN Creatinine Est GFR ( Amer) Est GFR (Non-Af Amer) BUN/Creatinine Ratio Glucose POC Glucose 132 H 177 H Calculated Osmolality Calcium Phosphorus Magnesium Vancomycin Trough 07/28/17 07/29/17 07/29/17 23:02 03:45 03:45 WBC 24.9 H RBC 3.28 L Hgb 8.9 L Hct 29.1 L MCV 88.7 MCH 27.1 L MCHC 30.6 L RDW 14.5 Plt Count 219 D MPV 12.4 Immature Gran % Test Not Performed Seg Neutrophils % 84.0 Lymphocytes % 8.0 Monocytes % Test Not Performed Eosinophils % Test Not Performed Basophils % Test Not Performed Metamyelocytes % 2.0 H Myelocytes % 6.0 H Neutrophils # 20.9 H Lymphocytes # 2.0 Monocytes # Test Not Performed Eosinophils # Test Not Performed Basophils # Test Not Performed Nucleated RBCs/100 WBC 0.2 H Platelet Estimate Normal VBG pH VBG pCO2 VBG pO2 VBG HCO3 Sodium 140 Potassium 3.9 Chloride 92 L Carbon Dioxide 43 H* BUN 25 H Creatinine 0.63 Est GFR ( Amer) > 60 Est GFR (Non-Af Amer) > 60 BUN/Creatinine Ratio 40 H Glucose 139 H POC Glucose 190 H Calculated Osmolality 297 Calcium 7.9 L Phosphorus 2.8 Magnesium 1.9 Vancomycin Trough 07/29/17 07/29/17 04:02 07:56 WBC RBC Hgb Hct MCV MCH MCHC RDW Plt Count MPV Immature Gran % Seg Neutrophils % Lymphocytes % Monocytes % Eosinophils % Basophils % Metamyelocytes % Myelocytes % Neutrophils # Lymphocytes # Monocytes # Eosinophils # Basophils # Nucleated RBCs/100 WBC Platelet Estimate VBG pH 7.47 H VBG pCO2 64 H VBG pO2 100 H VBG HCO3 47 H Sodium Potassium Chloride Carbon Dioxide BUN Creatinine Est GFR ( Amer) Est GFR (Non-Af Amer) BUN/Creatinine Ratio Glucose POC Glucose 131 H Calculated Osmolality Calcium Phosphorus Magnesium Vancomycin Trough Cultures: Cultures 07/22/17 11:00 Blood Culture - Final Peripheral Venipuncture No growth. 07/24/17 11:45 Blood Culture - Preliminary Central Venous Catheter No growth. 07/22/17 20:44 Sputum Culture - Final Sputum Methicillin Resistant S.aureus 07/22/17 11:05 Blood Culture - Final Peripheral Venipuncture Methicillin Resistant S.aureus 07/23/17 14:30 Legionella Antigen - Final Urine,Catheterized Streptococcus pneumoniae Antigen (M - Final 07/19/17 16:12 Sputum Culture - Final Sputum Methicillin Resistant S.aureus 07/17/17 15:27 Sputum Culture - Final Sputum Serology 07/24/17 07/23/17 07/22/17 Range/Units 11:45 14:30 11:05 Stl C. cayetanensis PCR Not detected (Not detect) Stool Rotavirus A PCR Not detected (Not detect) Stl Adenov F 40/41 PCR Not detected (Not detect) Stool Astrovirus (PCR) Not detected (Not detect) Stool Campylobacter PCR Not detected (Not detect) Stl C. diff Tox A/B PCR Not detected (Not detect) Stool Cryptosporidium PCR Not detected (Not detect) Stl Sh Tox Pr E STEC PCR Not detected (Not detect) Stool E coli O157 PCR Not detected (Not detect) Stl Enterotoxigenic E PCR Not detected (Not detect) Stool EPEC (PCR) Not detected (Not detect) Stool EAEC (PCR) Not detected (Not detect) Stl E. histolytica PCR Not detected (Not detect) Stool Giardia Lamblia PCR Not detected (Not detect) Stool Salmonella PCR Not detected (Not detect) Stool Sapovirus (PCR) Not detected (Not detect) Stl P. shigelloides PCR Not detected (Not detect) Stl Shigella/EIEC PCR Not detected (Not detect) St Y.enterocolitica PCR Not detected (Not detect) Stool Vibrio (PCR) Not detected (Not detect) Stl Vibrio cholerae PCR Not detected (Not detect) Stl Norovirus GI/GII PCR Not detected (Not detect) Stl GI Panel (PCR) Com See below A. baumannii (PCR) Not Detected (Not Detect) Chlamy pneumoniae PCR Not Detected (Not Detect) Adenovirus (PCR) Not Detected (Not Detect) B. pertussis DNA (PCR) Not Detected (Not Detect) B.parapertussis DNA PCR Not Detected (Not Detect) Nayely albicans (PCR) Not Detected (Not Detect) C. glabrata (PCR) Not Detected (Not Detect) C. krusei (PCR) Not Detected (Not Detect) C. parapsilosis (PCR) Not Detected (Not Detect) C. tropicalis (PCR) Not Detected (Not Detect) Coronavirus OC43 (PCR) Not Detected (Not Detect) Coronavirus HKU1 (PCR) Not Detected (Not Detect) Coronavirus 229E (PCR) Not Detected (Not Detect) Coronavirus NL63 (PCR) Not Detected (Not Detect) Enterobacteriac sp PCR Not Detected (Not Detect) E. cloacae complex PCR Not Detected (Not Detect) Enterococcus sp PCR Not Detected (Not Detect) E. coli (PCR) Not Detected (Not Detect) H. influenzae (PCR) Not Detected (Not Detect) Human Metapneumovir PCR Not Detected (Not Detect) Influenza A (H1) PCR Not Detected (Not Detect) Influ A (H1N1/09) PCR Not Detected (Not Detect) Influenza A (H3) PCR Not Detected (Not Detect) Influenza A Untype (PCR) Not Detected (Not Detect) Influenza Type B (PCR) DETECTED A (Not Detect) Klebsiella oxytoca PCR Not Detected (Not Detect) Klebsiella pneumoniae Not Detected (Not Detect) List. monocytogenes PCR Not Detected (Not Detect) M.pneumoniae DNA (PCR) Not Detected (Not Detect) N. meningitidis (PCR) Not Detected (Not Detect) Parainfluenza 1 (PCR) Not Detected (Not Detect) Parainfluenza 2 (PCR) Not Detected (Not Detect) Parainfluenza 3 (PCR) Not Detected (Not Detect) Parainfluenza 4 (PCR) Not Detected (Not Detect) Proteus species (PCR) Not Detected (Not Detect) RSV (PCR) Not Detected (Not Detect) Entero/Rhino (PCR) Not Detected (Not Detect) Serratia marcescens PCR Not Detected (Not Detect) Staphylococcus sp PCR DETECTED A (Not Detect) Staph aureus (PCR) DETECTED A (Not Detect) mecA-Methicil Res Gene DETECTED A (Not Detect) Streptococcus sp PCR Not Detected (Not Detect) Group A Strep DNA Not Detected (Not Detect) Group B Strep (PCR) Not Detected (Not Detect) Strep pneumoniae (PCR) Not Detected (Not Detect) P. aeruginosa (PCR) Not Detected (Not Detect) Tristian/B-Vanco Res Genes N/A (Not Detect) KPC (blaKPC) Detect PCR N/A (Not Detect) Exam - Constitutional Vitals: Temp Pulse Resp BP Pulse Ox 98.7 F 87 19 94/67 97 07/29/17 08:36 07/29/17 08:00 07/29/17 08:00 07/29/17 08:00 07/29/17 08:00 Exam: General: Patient intubated, awake and following verbal commands appropriately. HEENT: Patient has periorbital edema, oral edema with endotracheal tube, OG tube in place. Chest: Symmetric bilateral correlating with mechanical ventilation. Cardiac: Regular rate and rhythm, positive S1 and S2. no bruits appreciated bilateral carotids, Radial pulses 2+ bilateral, posterior tibial and dorsal pedal pulses 2+ bilateral. Respiratory:Bronchial congestion, lung troncoso clear to auscultation. Abdomen: Soft, nontender, hypoactive bowel sounds. Extremities: Symmetric bilateral, bilateral upper and lower extremities demonstrate anasarca - VTE Documentation of Mechanical Device: Intermittent pneumatic compression device Consult Discharge Plan - Plan Referrals: NONE,PCP [Primary Care Provider] - - Attending Attestation I examined this patient and my medical decision-making was reviewed with the Resident Physician. I agree with the documented findings, disposition and treatment plan as described except to the extent set forth below. Patient seen and examined. She is off sedation. She has been on CPAP since 6 AM. Doing great clinically. She answers questions by responding yes or no Patient's rectal tube has been removed and has not had a bowel movement. Good urine output Continue current treatment We will DC the Zosyn Continue vancomycin Awaiting repeat blood cultures Might benefit from a chest x-ray
[2017-07-29] MEDS: Dexmedetomidine HCl 400 MCG/100 ML MLS IVC SCH ×2 (10:06→23:28)
--- NOTE | 2017-07-29 11:27 | Pulmonology Progress Note ---
<Herlinda Yee - Last Filed: 07/29/17 11:25> Date of Encounter: 07/29/17 Time of Encounter: 07:40 Assessment and Plan (1) Acute respiratory failure with hypoxia Current Visit: No Status: Acute Acute on chronic respiratory failure with hypoxemia secondary to COPD and bacteremia with MRSA pneumonia, influenza B, chronic mastoiditis, and pansinusitis. Patient began satting in the 80s while in SVT. Patient intubated on 07/17/17 and sedated. CXR negative. CTA negative for PE but did show bronchial wall thickening and mucous plugging with severe emphysematous changes. Troponin negative x1 then increased to a max of 1.06 but now trending down to 0.69. Patient extubated 07/18 and was on BIPAP FiO2 35%. Patient reintubated later that morning as patient went into SVT and worsening respiratory failure. See event note for details. 07/21: patient was having hypotension and with less sedation had decreased responsiveness. Chest x-ray, head CT, lactic acid and blood cultures ordered. Started Levophed. Began Vecuronium for lung rest. Concern for her condition may not improve. She is still full code and may need tracheostomy. Palliative care on board and discussed with family who said that she did not want a trach. 07/22: Head CT showed pansinusitis and mastoiditis. 07/23: Overnight, febrile max 102.4F. Increase WBC = 16.2 (9.2) and found to be in septic shock requiring Levophed. 07/24: Patient is found to be positive for MRSA and influenza B. Due to CT abdomen and pelvis showing colitis a GI panel was negative. CPAP trial tolerated well. Son stated that he would be back sometime today in the afternoon. Considering extubation. plan: - plan to try to extubate later today - competed Tamiflu ( day 08/06) - decrease Solumedrol 40mg IV Q12hrs for 3 days then begin to taper (30 Q24 for 3 days then Predisone taper) - Duonebs scheduled Q4hrs, prn Q2hrs - Symbicort - completed course of Zosyn 6 days for colitis/initial concern for asp pneumonia , ID following -Nystatin oral stopped, Nystatin powder started for skin canadiasis groin region - antibiotics: continued Vancomycin ( day 6) and Zosyn (day 6). s/p Levoquin ( 5 days), Vanco (2 days) Zyvox ( 2 days), flagyl (1 day) - sedation: Precedex, Fentanyl - repeat BC pending, BC 07/24/17 MRSA central venous , BC 07/22/17 gram + cocci , BC 07/17/17 prelim no growth - sputum culture 07/19 growing MRSA, 07/17 normal resp shefali. Sputum culture 07/19 few gram + cocci, + rods - restarted tube feeds 07/21/17 - lines: powerglider x2, central R fem line (2) Acute exacerbation of chronic obstructive airways disease Current Visit: No Status: Acute Hx of COPD with home meds of Incruse Ellipta, Symbicort, albuterol. See plan above. Will begin to decrease steroids. (3) Elevated troponin Current Visit: Yes Status: Ruled-out Patient's initial troponin negative with an initial EKG showing ST depression in V3-V6. Patient went into SVT resolved with adenosine and lopressor. Patient' s repeat Troponin = 0.56. Repeat EKG showed inversion of T-waves in V2-V5. Cardiology was consulted, echo ordered, and low dose heparin drip started. Last nuclear stress test 2016, showed EF 70%, no ischemia. Echo 07/17/17: LVEF 60-65%, mild LV diastolic dysfunction, atypical septal motion consistent with post-op status. No valvular dysfunction. Plan: - Heparin drip stopped - cardiology consulted and believe due to demand ischemia no further cardiac work-up needed. signed off. (4) Hypotension Current Visit: Yes Status: Resolved Pt has powerglider and femoral central line. Currently not on Levophed. Resolved. Patient currently having tachycardia and hypertension. - Cardizem to 60mg Q6hrs, tolerating well Qualifiers: Hypotension type: unspecified hypotension type Qualified Code(s): I95.9 - Hypotension, unspecified (5) Diastolic heart failure Current Visit: No Status: Acute Hx of diastolic CHF. Nuclear stress 09/23/16 showed EF>70%, negative for ischemia. Echo is pending. BNP= 207. Patient is on Lasix at home but due to low normal BP and no rales will hold Lasix for now. Echo showed preserve EF mild LV diastolic dysfunction. On physical exam today, patient is less fluid overlloaded. Diuresis 6 L yesterday after giving Lasix 40 mg IVP once. He tolerated CPAP trial and plan for possible extubation today. Qualifiers: Heart failure chronicity: acute on chronic Qualified Code(s): I50.33 - Acute on chronic diastolic (congestive) heart failure (6) Bacteremia due to Gram-positive bacteria Current Visit: Yes Status: Acute See plan above. ID following. Continue Vancomycin for 4 weeks total (8 days). Stopping Zosyn. Repeat blood cultures pending. (7) Influenza B Current Visit: Yes Status: Resolved Tamiflu completed course. (8) Colitis Current Visit: Yes Status: Resolved CT of abdomen and pelvis showed colitis of the descending colon. Patient did have a copious liquid bowel movement. GI panel and C. difficile PCR was negative. Plan: - Zosyn 6/6 days completed today, will stop Zosyn tomorrow. - GI panel negative (9) Goals of care, counseling/discussion Current Visit: Yes Status: Acute Discussed with POA and he said that if need for reintubation or tracheostomy and that she would desire both of these. See history of present illness for details. Palliative care following. Subjective Principal diagnosis: acute respiratory failure with hypoxia Interval history: Ms. Scott is a 57-year-old female past medical history of COPD on 2 L, CAD status post CABG, and diastolic congestive heart failure found have acute respiratory failure secondary to COPD. 07/18, patient was extubated and is on BiPAP FiO2 35% and satting in the 90s. After extubation, patient had moderate respiratory distress with tachycardia and tachypnea on BiPAP FiO2 35%. Patient proceeded to go into SVT and was given Cardizem 5 mg. Patient had short run of V. tach and was given another 5 mg of Cardizem IVP. Patient's heart rate began to respond but patient continued increase work of breathing and decision was made to reintubate. Patient's HR returned to normal range. 07/23, patient was febrile with a maximum temperature 102.4F, patient's WBCs increased from 9.2 to 16.2 and was found to be in septic shock. Patient required Levophed. 07/28/17: GOALS OF CARE conversation: POA was present 07/28/17. I discussed with POA about the possibility of patient not being able to come off the vent and if he desired to continue treatment might need tracheostomy. I discussed the risks and benefits and asked if he had discussed life goals with her. Patient's son stated that they had discussed this and if the choice came down to tracheostomy or , patient was willing to live with a tracheostomy. Discussed with POA the quality of life would involve being in a jail and on a ventilator constantly. He repeated that she would still desires tracheostomy if absolutely needed. Discussed with son the possibility of reintubation if extubation was attempted and he stated that he believes that is something she would want also. He stated that he understood that her lungs will eventually fail but that he wanted to continue further life supportive care. We discussed that he should reaffirm this if she was extubated because goals can change. His phone is currently not working, so we will not be able to get a hold of him but he will try and stop by daily. Today patient was tolerating CPAP well. Patient nodding to questions and able to follow commands. Objective PUL Vital signs: Last Vital Signs Temp 98.7 F 07/29/17 08:36 Pulse 101 07/29/17 10:00 Resp 23 07/29/17 10:00 BP 145/89 07/29/17 10:00 Pulse Ox 96 07/29/17 10:00 Constitutional: intubated, resting Head: Normocephalic, atraumatic Heart: regular rhythm and rate, no murmurs Lungs: wheezing less than yesterday , [facility] ventilator at FiO2 40% Abdomen: Soft, distended, nontender, no guarding or rigidity. Extremities: slightly improvement of edema compared to yesterday in lower extremities, upper extremities bilaterally and facial edema , No clubbing, radial pulse +2/4, capillary refill <2sec. Skin: Skin warm and dry, no jaundice Neurologic: patient is following commands, opening eyes to verbal stimuli, nodding to questions line: powerglider x2 Ventilator Settings Ventilator Settings: Ventilator Settings, Last 8 Hours Ventilator Mode CPAP Ventilator Mode CPAP Ventilator Mode CPAP Ventilator Mode CPAP Ventilator Mode CPAP Ventilator Mode CPAP Ventilator Mode CPAP Ventilator Mode VC+ Ventilator Mode VC+ Ventilator Mode VC+ Ventilator Mode VC+ Ventilator Mode VC+ Ventilator Tidal Volume 380 Setting Ventilator Tidal Volume 380 Setting Ventilator Tidal Volume 380 Setting Ventilator Tidal Volume 380 Setting Ventilator Tidal Volume 380 Setting Ventilator Respiratory Rate 14 Setting Ventilator Respiratory Rate 14 Setting Ventilator Respiratory Rate 14 Setting Ventilator Respiratory Rate 14 Setting Ventilator Respiratory Rate 14 Setting Ventilator Respiratory Rate 14 Setting Ventilator Respiratory Rate 14 Setting Actual Respiratory Rate 22 Actual Respiratory Rate 22 Actual Respiratory Rate 22 Actual Respiratory Rate 21 Actual Respiratory Rate 21 Actual Respiratory Rate 17 Actual Respiratory Rate 17 Actual Respiratory Rate 15 Actual Respiratory Rate 18 Actual Respiratory Rate 16 Actual Respiratory Rate 20 Actual Respiratory Rate 14 Positive End Expiratory 5 Pressure Positive End Expiratory 5 Pressure Positive End Expiratory 5 Pressure Positive End Expiratory 5 Pressure Positive End Expiratory 5 Pressure Positive End Expiratory 5 Pressure Positive End Expiratory 5 Pressure Positive End Expiratory 5 Pressure Positive End Expiratory 5 Pressure Positive End Expiratory 5 Pressure Positive End Expiratory 5 Pressure Positive End Expiratory 5 Pressure Peak Inspiratory Airway 16 Pressure Peak Inspiratory Airway 16 Pressure Peak Inspiratory Airway 16 Pressure Peak Inspiratory Airway 16 Pressure Peak Inspiratory Airway 16 Pressure Peak Inspiratory Airway 16 Pressure Peak Inspiratory Airway 16 Pressure Peak Inspiratory Airway 23 Pressure Peak Inspiratory Airway 23 Pressure Peak Inspiratory Airway 22 Pressure Peak Inspiratory Airway 22 Pressure Peak Inspiratory Airway 19 Pressure Results - Laboratory Findings CBC and BMP: 07/29/17 03:45 07/29/17 03:45 ABG ABG pH 7.48 pH Units (7.32-7.45) H 07/28/17 06:33 ABG pCO2 55 mmHg (35-45) H 07/28/17 06:33 ABG pO2 119 mmHg (85-104) H 07/28/17 06:33 ABG O2 Saturation 99 % (95-98) H 07/28/17 06:33 PT/INR, D-dimer PT 11.9 Seconds (9.4-12.1) 07/17/17 03:46 D-Dimer 565 ng/mLFEU (0-500) H 07/17/17 03:46 Abnormal lab findings: Abnormal lab results WBC 24.9 K/mcL (4.3-11.1) H 07/29/17 03:45 RBC 3.28 M/mcL (3.82-4.97) L 07/29/17 03:45 Hgb 8.9 g/dL (11.5-15.4) L 07/29/17 03:45 Hct 29.1 % (35.3-44.9) L 07/29/17 03:45 MCH 27.1 pg (28.0-33.3) L 07/29/17 03:45 MCHC 30.6 g/dL (31.6-35.5) L 07/29/17 03:45 Metamyelocytes % 2.0 % (0) H 07/29/17 03:45 Myelocytes % 6.0 % (0) H 07/29/17 03:45 Neutrophils # 20.9 K/mcL (1.6-8.9) H 07/29/17 03:45 Nucleated RBCs/100 WBC 0.2 /100 WBC (0) H 07/29/17 03:45 Toxic Granulation Present (Not Present) A 07/27/17 03:23 Immature Plt Fraction 15.4 % (1.1-6.1) H 07/21/17 03:40 Hypochromasia Present (Not Present) A 07/23/17 03:27 Poikilocytosis 1+ (Not Present) A 07/26/17 04:08 APTT 66.6 Seconds (26.0-36.0) H 07/20/17 03:41 D-Dimer 565 ng/mLFEU (0-500) H 07/17/17 03:46 Heparin Anti-Xa, Unfract 0.99 IU/mL (0.30-0.70) H 07/18/17 06:00 ABG pH 7.48 pH Units (7.32-7.45) H 07/28/17 06:33 ABG pCO2 55 mmHg (35-45) H 07/28/17 06:33 ABG pO2 119 mmHg (85-104) H 07/28/17 06:33 ABG HCO3 41 mEq/L (21-27) H 07/28/17 06:33 ABG Total CO2 42 mEq/L (20-26) H 07/28/17 06:33 ABG O2 Saturation 99 % (95-98) H 07/28/17 06:33 ABG Base Excess 15 mEq/L (-2 to 3) H 07/28/17 06:33 VBG pH 7.47 pH Units (7.32-7.42) H 07/29/17 04:02 VBG pCO2 64 mmHg (41-51) H 07/29/17 04:02 VBG pO2 100 mmHg (25-50) H 07/29/17 04:02 VBG HCO3 47 mEq/L (21-27) H 07/29/17 04:02 Chloride 92 mEq/L (98-107) L 07/29/17 03:45 Carbon Dioxide 43 mEq/L (23-29) H* 07/29/17 03:45 BUN 25 mg/dL (6-20) H 07/29/17 03:45 BUN/Creatinine Ratio 40 (6-26) H 07/29/17 03:45 Glucose 139 mg/dL (70-105) H 07/29/17 03:45 POC Glucose 155 (58-89) H 07/29/17 11:07 Calcium 7.9 mg/dL (8.6-10.3) L 07/29/17 03:45 Venous Ioniz Calcium 1.09 mmol/L (1.15-1.35) L 07/26/17 04:27 AST 161 Units/L (13-39) H 07/23/17 14:30 ALT 332 Units/L (7-52) H 07/23/17 14:30 Troponin I 0.69 ng/mL (< 0.04) H* 07/18/17 04:00 B-Natriuretic Peptide 207 pg/mL (Less than 100) H 07/17/17 15:27 Serum Total Protein 5.4 g/dL (6.4-8.9) L 07/23/17 14:30 Albumin 2.4 g/dL (3.5-5.7) L 07/23/17 14:30 Albumin/Globulin Ratio 0.8 (1.1-2.2) L 07/23/17 14:30 Ur Specific [place] 1.029 (1.010-1.025) H 07/17/17 05:45 Vancomycin Trough 16 mcg/mL (5-10) H 07/28/17 10:25 Influenza Type B (PCR) DETECTED (Not Detect) A 07/23/17 14:30 Staphylococcus sp PCR DETECTED (Not Detect) A 07/22/17 11:05 Staph aureus (PCR) DETECTED (Not Detect) A 07/22/17 11:05 mecA-Methicil Res Gene DETECTED (Not Detect) A 07/22/17 11:05 - Microbiology Findings Microbiology Findings: Microbiology, Last 48 Hours 07/22/17 11:00 Blood Culture - Final Peripheral Venipuncture No growth. - Clinical Findings Intake & Output: Intake & Output 07/28/17 07/29/17 07/29/17 23:59 07:59 15:59 Intake Total 1112 / 1112 744 / 744 200 / 200 Output Total 1900 / 1900 2300 / 2300 800 / 800 Balance -788 / -788 -1556 / -1556 -600 / -600 Weight 58.6 kg - VTE Documentation of Mechanical Device: Intermittent pneumatic compression device Consult Discharge Plan - Plan Referrals: NONE,PCP [Primary Care Provider] - <Yahir Sharma - Last Filed: 07/29/17 22:54> Date of Encounter: 07/29/17 Objective PUL Vital signs: Last Vital Signs Temp 98 F 07/29/17 20:51 Pulse 73 07/29/17 21:00 Resp 27 07/29/17 21:00 BP 128/82 07/29/17 21:00 Pulse Ox 100 07/29/17 21:00 Results - Laboratory Findings CBC and BMP: 07/29/17 03:45 07/29/17 03:45 ABG ABG pH 7.53 pH Units (7.32-7.45) H 07/29/17 12:35 ABG pCO2 53 mmHg (35-45) H 07/29/17 12:35 ABG pO2 80 mmHg (85-104) L 07/29/17 12:35 ABG O2 Saturation 97 % (95-98) 07/29/17 12:35 PT/INR, D-dimer PT 11.9 Seconds (9.4-12.1) 07/17/17 03:46 D-Dimer 565 ng/mLFEU (0-500) H 07/17/17 03:46 Abnormal lab findings: Abnormal lab results WBC 24.9 K/mcL (4.3-11.1) H 07/29/17 03:45 RBC 3.28 M/mcL (3.82-4.97) L 07/29/17 03:45 Hgb 8.9 g/dL (11.5-15.4) L 07/29/17 03:45 Hct 29.1 % (35.3-44.9) L 07/29/17 03:45 MCH 27.1 pg (28.0-33.3) L 07/29/17 03:45 MCHC 30.6 g/dL (31.6-35.5) L 07/29/17 03:45 Metamyelocytes % 2.0 % (0) H 07/29/17 03:45 Myelocytes % 6.0 % (0) H 07/29/17 03:45 Neutrophils # 20.9 K/mcL (1.6-8.9) H 07/29/17 03:45 Nucleated RBCs/100 WBC 0.2 /100 WBC (0) H 07/29/17 03:45 Toxic Granulation Present (Not Present) A 07/27/17 03:23 Immature Plt Fraction 15.4 % (1.1-6.1) H 07/21/17 03:40 Hypochromasia Present (Not Present) A 07/23/17 03:27 Poikilocytosis 1+ (Not Present) A 07/26/17 04:08 APTT 66.6 Seconds (26.0-36.0) H 07/20/17 03:41 D-Dimer 565 ng/mLFEU (0-500) H 07/17/17 03:46 Heparin Anti-Xa, Unfract 0.99 IU/mL (0.30-0.70) H 07/18/17 06:00 ABG pH 7.53 pH Units (7.32-7.45) H 07/29/17 12:35 ABG pCO2 53 mmHg (35-45) H 07/29/17 12:35 ABG pO2 80 mmHg (85-104) L 07/29/17 12:35 ABG HCO3 44 mEq/L (21-27) H 07/29/17 12:35 ABG Total CO2 46 mEq/L (20-26) H 07/29/17 12:35 ABG Base Excess 19 mEq/L (-2 to 3) H 07/29/17 12:35 VBG pH 7.47 pH Units (7.32-7.42) H 07/29/17 04:02 VBG pCO2 64 mmHg (41-51) H 07/29/17 04:02 VBG pO2 100 mmHg (25-50) H 07/29/17 04:02 VBG HCO3 47 mEq/L (21-27) H 07/29/17 04:02 Chloride 92 mEq/L (98-107) L 07/29/17 03:45 Carbon Dioxide 43 mEq/L (23-29) H* 07/29/17 03:45 BUN 25 mg/dL (6-20) H 07/29/17 03:45 BUN/Creatinine Ratio 40 (6-26) H 07/29/17 03:45 Glucose 139 mg/dL (70-105) H 07/29/17 03:45 POC Glucose 123 (58-89) H 07/29/17 20:04 Calcium 7.9 mg/dL (8.6-10.3) L 07/29/17 03:45 Venous Ioniz Calcium 1.09 mmol/L (1.15-1.35) L 07/26/17 04:27 AST 161 Units/L (13-39) H 07/23/17 14:30 ALT 332 Units/L (7-52) H 07/23/17 14:30 Troponin I 0.69 ng/mL (< 0.04) H* 07/18/17 04:00 B-Natriuretic Peptide 207 pg/mL (Less than 100) H 07/17/17 15:27 Serum Total Protein 5.4 g/dL (6.4-8.9) L 07/23/17 14:30 Albumin 2.4 g/dL (3.5-5.7) L 07/23/17 14:30 Albumin/Globulin Ratio 0.8 (1.1-2.2) L 07/23/17 14:30 Ur Specific [place] 1.029 (1.010-1.025) H 07/17/17 05:45 Vancomycin Trough 16 mcg/mL (5-10) H 07/28/17 10:25 Influenza Type B (PCR) DETECTED (Not Detect) A 07/23/17 14:30 Staphylococcus sp PCR DETECTED (Not Detect) A 07/22/17 11:05 Staph aureus (PCR) DETECTED (Not Detect) A 07/22/17 11:05 mecA-Methicil Res Gene DETECTED (Not Detect) A 07/22/17 11:05 - Microbiology Findings Microbiology Findings: Microbiology, Last 48 Hours 07/22/17 11:00 Blood Culture - Final Peripheral Venipuncture No growth. - Clinical Findings Intake & Output: Intake & Output 07/29/17 07/29/17 07/29/17 07:59 15:59 23:59 Intake Total 744 / 744 300 / 300 Output Total 2300 / 2300 1800 / 1800 1550 / 1550 Balance -1556 / -1556 -1500 / -1500 -1550 / -1550 - Attending Attestation - Attending Attestation I saw and evaluated this patient and my medical decision-making was reviewed with the Resident Physician. I agree with the documented findings, disposition and treatment plan as described except to the extent set forth below. We independently had [id number] contact with the patient I spent 31 minutes of Critical Care time with this patient. It involved decision making of high complexity to assess, manipulate, and support vital organ system failure and/or to prevent further life threatening deterioration of the patient's condition. The time involved in the performance of separately reportable procedures was not counted toward critical care time. Patient seen and examined at bedside Labs, radiology, chart personally reviewed IRRIGATOR GRAVITY FLOW: Patient is conscious following commands intubated following commands. Pulm: Patient has most likely MRSA pneumonia Vs Sinusitis Vs Mastoiditis MRSA bactremia responded well to antibiotics now blood cultures are negative , after aggressive diuresis patient did well on CPAP , gas exchange was adequate after 5 hrs of SBT extubated patient to BIPAP will closely monitor for next 24 hrs. Cards: Hemodynamically stable FEN-GI: On BIPAP to attempt clear liquid diet later Renal: Labs and output reviewed to continue diuresis ID: MRSA bactremia now resolved repeat blood culture if it is positive patient will need TYE .To continue total course of 4 weeks of Vancomycin Heme/Onc: Labs reviewed Endo: Glucose Monitored Integ/MSK: Skin Care per routine ICU Nursing Protocol to prevent ulcers. Lines: All lines examined without evidence of infection : Dispo: critically ill High chance of respiratory failure after extubation CODE: Full Code . Spoke with POA looks like patients wants re intubated if she gets reintubated will need tracheostomy
[2017-07-29] MEDS: Vancomycin 500 MG in 0.9 % Sodium Chloride Mini Bag 100 ML IVPB SCH ×2 (11:32→21:30)
--- NOTE | 2017-07-29 12:36 | Palliative Progress Note ---
Date of Encounter: 07/29/17 Time of Encounter: 09:30 - Assessment and plan (1) Acute and chronic respiratory failure with hypercapnia Current Visit: No Status: Resolved Assessment and plan: Patient on ventilator. Plan is for extubation today. Required for reintubation the patient will then proceed to trach please see the goals of care down below. (2) Encephalopathy Current Visit: No Status: Resolved Assessment and plan: This seems to be resolving. She is awake and alert and able to answer some questions. Fully into the extubation today. (3) Goals of care, counseling/discussion Current Visit: Yes Status: Acute Assessment and plan: Patient is still full code, I was able to reach the patient's son Kiet who is her medical power of council on aging director today. He has had discussions with his mother multiple times in the past. And although he does not agree with that, leaves she wishes to be a full code. Was kind enough to let me go through everything with him, and I believe that he understands what he is asking for. More the point he was able to tell me that he has tried to convince her otherwise he truly believes that this is what she has wanted in the past he continues to desire. Also wishes for the patient to be reintubated if necessary and proceed with trach and PEG if needed. I did indicate to him that the patient had shook her head no when I asked if she wanted to have a tube put back. She had given him just the opposite or spots yesterday when he asked her essentially the same question. Therefore it was his judgment that the tube should be replaced if needed and then proceed with trach at that point in time. He did tell me that he would make sure that he woke to her about this when he came in either much later today or tomorrow morning. Have informed the intensive care unit of family's desire for reintubation should that become necessary and no change in CODE STATUS. (4) Gram-positive bacteremia Current Visit: Yes Status: Acute Assessment and plan: On antibiotics for this as well as Tamiflu for flu plan per hospitalist/ computer forensic specialist team. Infectious disease is also on board plan per hospitalist and infectious disease team. White count has increased, plan is still as above. - Time Spent With Patient Total time spent is greater than 50% in coordination of care (as documented) at patient's floor/unit and/or counseling patient: - Subjective Interval history: No acute events noted last night. The patient has been tolerating CPAP well this morning. He is doing much better than yesterday, anticipated the patient will be abated today. Has no complaints of at this time does seem to be anxious to be extubated. - Constitutional Vitals: Abnormal lab results WBC 24.9 K/mcL (4.3-11.1) H 07/29/17 03:45 RBC 3.28 M/mcL (3.82-4.97) L 07/29/17 03:45 Hgb 8.9 g/dL (11.5-15.4) L 07/29/17 03:45 Hct 29.1 % (35.3-44.9) L 07/29/17 03:45 MCH 27.1 pg (28.0-33.3) L 07/29/17 03:45 MCHC 30.6 g/dL (31.6-35.5) L 07/29/17 03:45 Metamyelocytes % 2.0 % (0) H 07/29/17 03:45 Myelocytes % 6.0 % (0) H 07/29/17 03:45 Neutrophils # 20.9 K/mcL (1.6-8.9) H 07/29/17 03:45 Nucleated RBCs/100 WBC 0.2 /100 WBC (0) H 07/29/17 03:45 Toxic Granulation Present (Not Present) A 07/27/17 03:23 Immature Plt Fraction 15.4 % (1.1-6.1) H 07/21/17 03:40 Hypochromasia Present (Not Present) A 07/23/17 03:27 Poikilocytosis 1+ (Not Present) A 07/26/17 04:08 APTT 66.6 Seconds (26.0-36.0) H 07/20/17 03:41 D-Dimer 565 ng/mLFEU (0-500) H 07/17/17 03:46 Heparin Anti-Xa, Unfract 0.99 IU/mL (0.30-0.70) H 07/18/17 06:00 ABG pH 7.48 pH Units (7.32-7.45) H 07/28/17 06:33 ABG pCO2 55 mmHg (35-45) H 07/28/17 06:33 ABG pO2 119 mmHg (85-104) H 07/28/17 06:33 ABG HCO3 41 mEq/L (21-27) H 07/28/17 06:33 ABG Total CO2 42 mEq/L (20-26) H 07/28/17 06:33 ABG O2 Saturation 99 % (95-98) H 07/28/17 06:33 ABG Base Excess 15 mEq/L (-2 to 3) H 07/28/17 06:33 VBG pH 7.47 pH Units (7.32-7.42) H 07/29/17 04:02 VBG pCO2 64 mmHg (41-51) H 07/29/17 04:02 VBG pO2 100 mmHg (25-50) H 07/29/17 04:02 VBG HCO3 47 mEq/L (21-27) H 07/29/17 04:02 Chloride 92 mEq/L (98-107) L 07/29/17 03:45 Carbon Dioxide 43 mEq/L (23-29) H* 07/29/17 03:45 BUN 25 mg/dL (6-20) H 07/29/17 03:45 BUN/Creatinine Ratio 40 (6-26) H 07/29/17 03:45 Glucose 139 mg/dL (70-105) H 07/29/17 03:45 POC Glucose 155 (58-89) H 07/29/17 11:07 Calcium 7.9 mg/dL (8.6-10.3) L 07/29/17 03:45 Venous Ioniz Calcium 1.09 mmol/L (1.15-1.35) L 07/26/17 04:27 AST 161 Units/L (13-39) H 07/23/17 14:30 ALT 332 Units/L (7-52) H 07/23/17 14:30 Troponin I 0.69 ng/mL (< 0.04) H* 07/18/17 04:00 B-Natriuretic Peptide 207 pg/mL (Less than 100) H 07/17/17 15:27 Serum Total Protein 5.4 g/dL (6.4-8.9) L 07/23/17 14:30 Albumin 2.4 g/dL (3.5-5.7) L 07/23/17 14:30 Albumin/Globulin Ratio 0.8 (1.1-2.2) L 07/23/17 14:30 Ur Specific [place] 1.029 (1.010-1.025) H 07/17/17 05:45 Vancomycin Trough 16 mcg/mL (5-10) H 07/28/17 10:25 Influenza Type B (PCR) DETECTED (Not Detect) A 07/23/17 14:30 Staphylococcus sp PCR DETECTED (Not Detect) A 07/22/17 11:05 Staph aureus (PCR) DETECTED (Not Detect) A 07/22/17 11:05 mecA-Methicil Res Gene DETECTED (Not Detect) A 07/22/17 11:05 General appearance: Present: no acute distress - Respiratory Respiratory exam: Present: decreased breath sounds - Cardiovascular Cardiovascular exam: Present: RRR - GI/Abdominal GI/Abdominal exam: Present: hypoactive bowel sounds, soft. Absent: tenderness - Extremities Exam Extremities exam: Present: pedal edema. Absent: tenderness - Neurological Exam Neurological exam: Present: alert (Not able to speak due to being on the ventilator.) - Psychiatric Psychiatric exam: Absent: agitated, anxious - Skin Skin exam: Present: dry, warm Palliative Quality Palliative Quality: Screen for Code Status: Yes, Screen for Goals of Care: NA, Screen for Pain: Yes, If Pain Regimen Started, Initiate Bowel Regimen: NA, Screen for Nausea/Vomitting: NA Code Status: 07/17/17 11:52 FULL [Resuscitation Status: Active] [RES] Routine Comment: Resuscitation Status: Full Code - Labs CBC & Chem 7: 07/29/17 03:45 07/29/17 03:45 Labs: Laboratory Results - last 24 hr 07/28/17 07/28/17 07/28/17 16:53 17:20 19:52 WBC RBC Hgb Hct MCV MCH MCHC RDW Plt Count MPV Immature Gran % Seg Neutrophils % Lymphocytes % Monocytes % Eosinophils % Basophils % Metamyelocytes % Myelocytes % Neutrophils # Lymphocytes # Monocytes # Eosinophils # Basophils # Nucleated RBCs/100 WBC Platelet Estimate VBG pH VBG pCO2 VBG pO2 VBG HCO3 Sodium Potassium 3.7 Chloride Carbon Dioxide BUN Creatinine Est GFR ( Amer) Est GFR (Non-Af Amer) BUN/Creatinine Ratio Glucose POC Glucose 132 H 177 H Calculated Osmolality Calcium Phosphorus Magnesium 07/28/17 07/29/17 07/29/17 23:02 03:45 03:45 WBC 24.9 H RBC 3.28 L Hgb 8.9 L Hct 29.1 L MCV 88.7 MCH 27.1 L MCHC 30.6 L RDW 14.5 Plt Count 219 D MPV 12.4 Immature Gran % Test Not Performed Seg Neutrophils % 84.0 Lymphocytes % 8.0 Monocytes % Test Not Performed Eosinophils % Test Not Performed Basophils % Test Not Performed Metamyelocytes % 2.0 H Myelocytes % 6.0 H Neutrophils # 20.9 H Lymphocytes # 2.0 Monocytes # Test Not Performed Eosinophils # Test Not Performed Basophils # Test Not Performed Nucleated RBCs/100 WBC 0.2 H Platelet Estimate Normal VBG pH VBG pCO2 VBG pO2 VBG HCO3 Sodium 140 Potassium 3.9 Chloride 92 L Carbon Dioxide 43 H* BUN 25 H Creatinine 0.63 Est GFR ( Amer) > 60 Est GFR (Non-Af Amer) > 60 BUN/Creatinine Ratio 40 H Glucose 139 H POC Glucose 190 H Calculated Osmolality 297 Calcium 7.9 L Phosphorus 2.8 Magnesium 1.9 07/29/17 07/29/17 07/29/17 04:02 07:56 11:07 WBC RBC Hgb Hct MCV MCH MCHC RDW Plt Count MPV Immature Gran % Seg Neutrophils % Lymphocytes % Monocytes % Eosinophils % Basophils % Metamyelocytes % Myelocytes % Neutrophils # Lymphocytes # Monocytes # Eosinophils # Basophils # Nucleated RBCs/100 WBC Platelet Estimate VBG pH 7.47 H VBG pCO2 64 H VBG pO2 100 H VBG HCO3 47 H Sodium Potassium Chloride Carbon Dioxide BUN Creatinine Est GFR ( Amer) Est GFR (Non-Af Amer) BUN/Creatinine Ratio Glucose POC Glucose 131 H 155 H Calculated Osmolality Calcium Phosphorus Magnesium - ABG Interpretation ABG results: ABG ABG pH 7.48 pH Units (7.32-7.45) H 07/28/17 06:33 ABG pCO2 55 mmHg (35-45) H 07/28/17 06:33 ABG pO2 119 mmHg (85-104) H 07/28/17 06:33 ABG O2 Saturation 99 % (95-98) H 07/28/17 06:33 PT/INR, D-dimer PT 11.9 Seconds (9.4-12.1) 07/17/17 03:46 D-Dimer 565 ng/mLFEU (0-500) H 07/17/17 03:46 Consult Discharge Plan - Plan Referrals: NONE,PCP [Primary Care Provider] -
[2017-07-29 12:37] LABS: ABG Base Excess 19 mEq/L (-2 to 3); ABG HCO3 44 mEq/L (21-27); ABG Oxygen Saturation 97 % (95-98); ABG PCO2 53 mmHg (35-45); ABG PH 7.53 pH Units (7.32-7.45); ABG PO2 80 mmHg (85-104); ABG TCO2 46 mEq/L (20-26); Blood Gas Modality CPAP/PS; Blood Gas PEEP 5 cm H2O; Blood Gas Pressure Support 10 cm H2O
[2017-07-29] MEDS: Nystatin POWDER 30 GM BOTTLE TP SCH ×2 (13:17→21:30)
[2017-07-30] MEDS: Insulin LISPRO 300 UNITS/3 ML VIAL SQ SCH ×5 (00:33→23:13)
[2017-07-30] MEDS: Lacri-Lube 3.5 GM TUBE BOTH EYES SCH ×6 (03:32→23:19)
[2017-07-30] MEDS: Ipratropium/Albuterol Neb 3 ML IH SCH ×5 (04:18→20:47)
[2017-07-30] MEDS: *HR* Heparin 5,000 UNIT/ML VIAL SQ SCH ×2 (05:30→17:09)
[2017-07-30] MEDS: MethylPREDNISolone 40 MG/ML VIAL IVP SCH ×2 (05:30→17:09)
[2017-07-30 05:58] LABS: Hematocrit 34.2 % (35.3-44.9); Mean Corpuscular Hemoglobin 27.2 pg (28.0-33.3); Mean Corpuscular Volume 87.7 fL (83.0-100.0); Mean Platelet Volume 12.2 fL (9.4-12.4); Nucleated Red Blood Cells 0.2 /100 WBC (0); Platelet Count 230 K/mcL (140-400); Red Cell Distribution Width 14.3 % (11.5-14.5)
[2017-07-30 06:14] LABS: Hemoglobin 10.6 g/dL (11.5-15.4)
[2017-07-30 06:31] LABS: BUN/Creatinine Ratio 43 (6-26); Blood Urea Nitrogen 27 mg/dL (6-20); Calcium 8.5 mg/dL (8.6-10.3); Carbon Dioxide 42 mEq/L (23-29); Chloride 89 mEq/L (98-107); Glucose 124 mg/dL (70-105); Osmolality,Calculated 297 (280-300); Potassium 3.1 mEq/L (3.5-5.1); Sodium 140 mEq/L (136-145); eGFR For African Americans > 60 (> 60); eGFR For Non-African Americans > 60 (> 60)
[2017-07-30] MEDS: Budesonide/Formoterol 160/4.5 MDI IH SCH ×2 (07:48→20:48)
[2017-07-30 08:08] LABS: Lymphocytes # 1.1 K/mcL (0.6-4.6); Monocytes # 0.7 K/mcL (0.0-1.3); Neutrophils # 14.8 K/mcL (1.6-8.9); Platelet Estimate Normal (Normal)
--- NOTE | 2017-07-30 08:12 | Pulmonology Progress Note ---
<Herlinda Yee - Last Filed: 07/30/17 17:01> Date of Encounter: 07/30/17 Time of Encounter: 08:00 Assessment and Plan (1) Acute respiratory failure with hypoxia Current Visit: No Status: Acute Acute on chronic respiratory failure with hypoxemia secondary to COPD and bacteremia with MRSA pneumonia, influenza B, chronic mastoiditis, and pansinusitis. Patient began satting in the 80s while in SVT. Patient intubated on 07/17/17 and sedated. CXR negative. CTA negative for PE but did show bronchial wall thickening and mucous plugging with severe emphysematous changes. Troponin negative x1 then increased to a max of 1.06 but now trending down to 0.69. Patient extubated 07/18 and was on BIPAP FiO2 35%. Patient reintubated later that morning as patient went into SVT and worsening respiratory failure. See event note for details. 07/21: patient was having hypotension and with less sedation had decreased responsiveness. Chest x-ray, head CT, lactic acid and blood cultures ordered. Started Levophed. Began Vecuronium for lung rest. Concern for her condition may not improve. She is still full code and may need tracheostomy. Palliative care on board and discussed with family who said that she did not want a trach. 07/22: Head CT showed pansinusitis and mastoiditis. 07/23: Overnight, febrile max 102.4F. Increase WBC = 16.2 (9.2) and found to be in septic shock requiring Levophed. 07/24: Patient is found to be positive for MRSA and influenza B. Due to CT abdomen and pelvis showing colitis a GI panel was negative. 07/29: Patient extubated. Today patient is doing well. Her vitals are stable and she is oriented and responding appropriately to questions. plan: - competed Tamiflu ( day 44) - Solumedrol 40mg IV Q12hrs day 2/3, then begin to taper (30mg Q24 for 3 days then Predisone taper) - Duonebs scheduled Q4hrs, prn Q2hrs - Symbicort -Nystatin oral stopped, Nystatin powder started for skin canadiasis groin region - ID following, antibiotics: continued Vancomycin ( day 10, continue through August 11). s/p Zosyn (day 6)Levoquin (5 days), Vanco (2 days) Zyvox ( 2 days), flagyl (1 day) - repeat BC no growth prelim, BC 07/24/17 MRSA central venous , BC 07/22/17 gram + cocci , BC 07/17/17 prelim no growth - sputum culture 07/19 growing MRSA, 07/17 normal resp shefali. Sputum culture 07/19 few gram + cocci, + rods - restarted tube feeds 07/21/17 - lines: powerglider x2 - when clinically stable ID would like TTE (2) Acute exacerbation of chronic obstructive airways disease Current Visit: No Status: Acute Hx of COPD with home meds of Incruse Ellipta, Symbicort, albuterol. See plan above. Decrease steroids. (3) Elevated troponin Current Visit: Yes Status: Ruled-out Patient's initial troponin negative with an initial EKG showing ST depression in V3-V6. Patient went into SVT resolved with adenosine and lopressor. Patient' s repeat Troponin = 0.56. Repeat EKG showed inversion of T-waves in V2-V5. Cardiology was consulted, echo ordered, and low dose heparin drip started. Last nuclear stress test 2016, showed EF 70%, no ischemia. Echo 07/17/17: LVEF 60-65%, mild LV diastolic dysfunction, atypical septal motion consistent with post-op status. No valvular dysfunction. Plan: - Heparin drip stopped - cardiology consulted and believe due to demand ischemia no further cardiac work-up needed. signed off. (4) Hypotension Current Visit: Yes Status: Resolved Pt has powerglider and femoral central line. Currently not on Levophed. Resolved. Patient currently having tachycardia and hypertension. - Cardizem to 60mg Q6hrs, tolerating well Qualifiers: Hypotension type: unspecified hypotension type Qualified Code(s): I95.9 - Hypotension, unspecified (5) Diastolic heart failure Current Visit: No Status: Acute Hx of diastolic CHF. Nuclear stress 09/23/16 showed EF>70%, negative for ischemia. Echo is pending. BNP= 207. Patient is on Lasix at home but due to low normal BP and no rales will hold Lasix for now. Echo showed preserve EF mild LV diastolic dysfunction. On physical exam today, patient is less fluid overloaded. Diuresis 6 L again in the last 24 hrs. Qualifiers: Heart failure chronicity: acute on chronic Qualified Code(s): I50.33 - Acute on chronic diastolic (congestive) heart failure (6) Bacteremia due to Gram-positive bacteria Current Visit: Yes Status: Acute See plan above. ID following. Continue Vancomycin until August 11. Repeat blood cultures prelim no growth. (7) Influenza B Current Visit: Yes Status: Resolved Tamiflu completed course. (8) Colitis Current Visit: Yes Status: Resolved CT of abdomen and pelvis showed colitis of the descending colon. Patient did have a copious liquid bowel movement. GI panel and C. difficile PCR was negative. Plan: - Zosyn 6/6 days completed - GI panel negative (9) Goals of care, counseling/discussion Current Visit: Yes Status: Acute Patient stated today that she would like her code status changed to DNR -CCA- DNI. Patient signed forms with palliative care. Subjective Principal diagnosis: acute respiratory failure with hypoxia Interval history: Ms. Scott is a 57-year-old female past medical history of COPD on 2 L, CAD status post CABG, and diastolic congestive heart failure found have acute respiratory failure secondary to COPD. 07/18, patient was extubated and is on BiPAP FiO2 35% and satting in the 90s. After extubation, patient had moderate respiratory distress with tachycardia and tachypnea on BiPAP FiO2 35%. Patient proceeded to go into SVT and was given Cardizem 5 mg. Patient had short run of V. tach and was given another 5 mg of Cardizem IVP. Patient's heart rate began to respond but patient continued increase work of breathing and decision was made to reintubate. Patient's HR returned to normal range. 07/23, patient was febrile with a maximum temperature 102.4F, patient's WBCs increased from 9.2 to 16.2 and was found to be in septic shock. Patient required Levophed. 07/30/17: GOALS OF CARE conversation: Discussed with patient this morning about code status and she clearly stated that she does not want to be intubated, does not want CPR, and if the decision was made for tracheostomy she does not desire it. This conversation was confirmed by Dr. Sharma and Rosalba with palliative care where they both received the same answers from the patient. Code status was changed to DNR-CCA- DNI. Today patient is doing well on NC 6L. She stated her only new complaint was thirst. She denied JOSEPH, dizziness, abd pain, CP. A 10 point review of systems was obtained and negative except was is stated above. Objective PUL Vital signs: Last Vital Signs Temp 97.7 F 07/30/17 07:00 Pulse 73 07/30/17 07:37 Resp 18 07/30/17 07:48 BP 117/81 07/30/17 07:00 Pulse Ox 100 07/30/17 07:48 Constitutional: alert, oriented, awake, resting calmly in bed Head: Normocephalic, atraumatic Heart: regular rhythm and rate, no murmurs Lungs: wheezing, no resp distress on 6L NC Abdomen: Soft, mild distension, nontender, no guarding or rigidity. Extremities: improvement of edema compared to yesterday still +2 pitting edema in lower extremities, upper extremities bilaterally and facial edema , No clubbing, radial pulse +2/4, capillary refill <2sec. Skin: Skin warm and dry, no jaundice Neurologic: strength generally decreased in all extremities, answering questions appropriately line: powerglider x2 Results - Laboratory Findings CBC and BMP: 07/30/17 03:00 07/30/17 03:00 ABG ABG pH 7.53 pH Units (7.32-7.45) H 07/29/17 12:35 ABG pCO2 53 mmHg (35-45) H 07/29/17 12:35 ABG pO2 80 mmHg (85-104) L 07/29/17 12:35 ABG O2 Saturation 97 % (95-98) 07/29/17 12:35 PT/INR, D-dimer PT 11.9 Seconds (9.4-12.1) 07/17/17 03:46 D-Dimer 565 ng/mLFEU (0-500) H 07/17/17 03:46 Abnormal lab findings: Abnormal lab results WBC 18.1 K/mcL (4.3-11.1) H 07/30/17 03:00 Hgb 10.6 g/dL (11.5-15.4) L D 07/30/17 03:00 Hct 34.2 % (35.3-44.9) L 07/30/17 03:00 MCH 27.2 pg (28.0-33.3) L 07/30/17 03:00 MCHC 31.0 g/dL (31.6-35.5) L 07/30/17 03:00 Metamyelocytes % 2.0 % (0) H 07/30/17 03:00 Myelocytes % 6.0 % (0) H 07/30/17 03:00 Neutrophils # 14.8 K/mcL (1.6-8.9) H 07/30/17 03:00 Nucleated RBCs/100 WBC 0.2 /100 WBC (0) H 07/30/17 03:00 Toxic Granulation Present (Not Present) A 07/27/17 03:23 Immature Plt Fraction 15.4 % (1.1-6.1) H 07/21/17 03:40 Hypochromasia Present (Not Present) A 07/23/17 03:27 Poikilocytosis 1+ (Not Present) A 07/26/17 04:08 APTT 66.6 Seconds (26.0-36.0) H 07/20/17 03:41 D-Dimer 565 ng/mLFEU (0-500) H 07/17/17 03:46 Heparin Anti-Xa, Unfract 0.99 IU/mL (0.30-0.70) H 07/18/17 06:00 ABG pH 7.53 pH Units (7.32-7.45) H 07/29/17 12:35 ABG pCO2 53 mmHg (35-45) H 07/29/17 12:35 ABG pO2 80 mmHg (85-104) L 07/29/17 12:35 ABG HCO3 44 mEq/L (21-27) H 07/29/17 12:35 ABG Total CO2 46 mEq/L (20-26) H 07/29/17 12:35 ABG Base Excess 19 mEq/L (-2 to 3) H 07/29/17 12:35 VBG pH 7.47 pH Units (7.32-7.42) H 07/29/17 04:02 VBG pCO2 64 mmHg (41-51) H 07/29/17 04:02 VBG pO2 100 mmHg (25-50) H 07/29/17 04:02 VBG HCO3 47 mEq/L (21-27) H 07/29/17 04:02 Potassium 3.1 mEq/L (3.5-5.1) L 07/30/17 03:00 Chloride 89 mEq/L (98-107) L 07/30/17 03:00 Carbon Dioxide 42 mEq/L (23-29) H* 07/30/17 03:00 BUN 27 mg/dL (6-20) H 07/30/17 03:00 BUN/Creatinine Ratio 43 (6-26) H 07/30/17 03:00 Glucose 124 mg/dL (70-105) H 07/30/17 03:00 POC Glucose 127 (58-89) H 07/30/17 07:37 Calcium 8.5 mg/dL (8.6-10.3) L 07/30/17 03:00 Venous Ioniz Calcium 1.09 mmol/L (1.15-1.35) L 07/26/17 04:27 AST 161 Units/L (13-39) H 07/23/17 14:30 ALT 332 Units/L (7-52) H 07/23/17 14:30 Troponin I 0.69 ng/mL (< 0.04) H* 07/18/17 04:00 B-Natriuretic Peptide 207 pg/mL (Less than 100) H 07/17/17 15:27 Serum Total Protein 5.4 g/dL (6.4-8.9) L 07/23/17 14:30 Albumin 2.4 g/dL (3.5-5.7) L 07/23/17 14:30 Albumin/Globulin Ratio 0.8 (1.1-2.2) L 07/23/17 14:30 Ur Specific Meta 1.029 (1.010-1.025) H 07/17/17 05:45 Vancomycin Trough 16 mcg/mL (5-10) H 07/28/17 10:25 Influenza Type B (PCR) DETECTED (Not Detect) A 07/23/17 14:30 Staphylococcus sp PCR DETECTED (Not Detect) A 07/22/17 11:05 Staph aureus (PCR) DETECTED (Not Detect) A 07/22/17 11:05 mecA-Methicil Res Gene DETECTED (Not Detect) A 07/22/17 11:05 - Microbiology Findings Microbiology Findings: Microbiology, Last 48 Hours 07/24/17 11:45 Blood Culture - Final Central Venous Catheter No growth. 07/28/17 15:22 Blood Culture - Preliminary Central Venous Catheter No growth. 07/28/17 15:22 Blood Culture - Preliminary Central Venous Catheter No growth. 07/28/17 16:20 Blood Culture - Preliminary Peripheral Venipuncture No growth. 07/22/17 11:00 Blood Culture - Final Peripheral Venipuncture No growth. - Clinical Findings Intake & Output: Intake & Output 07/29/17 07/30/17 07/30/17 23:59 07:59 15:59 Intake Total 100 / 100 Output Total 1950 / 1950 1600 / 1600 Balance -1850 / -1850 -1600 / -1600 Weight 58.1 kg - VTE Documentation of Mechanical Device: Intermittent pneumatic compression device Consult Discharge Plan - Plan Referrals: NONE,PCP [Primary Care Provider] - <Yahir Sharma - Last Filed: 07/31/17 00:27> Date of Encounter: 07/31/17 Objective PUL Vital signs: Last Vital Signs Temp 97.1 F L 07/31/17 00:21 Pulse 95 07/30/17 23:00 Resp 26 07/30/17 23:00 BP 136/86 07/30/17 23:00 Pulse Ox 98 07/30/17 23:00 Results - Laboratory Findings CBC and BMP: 07/30/17 03:00 07/30/17 03:00 ABG ABG pH 7.53 pH Units (7.32-7.45) H 07/29/17 12:35 ABG pCO2 53 mmHg (35-45) H 07/29/17 12:35 ABG pO2 80 mmHg (85-104) L 07/29/17 12:35 ABG O2 Saturation 97 % (95-98) 07/29/17 12:35 PT/INR, D-dimer PT 11.9 Seconds (9.4-12.1) 07/17/17 03:46 D-Dimer 565 ng/mLFEU (0-500) H 07/17/17 03:46 Abnormal lab findings: Abnormal lab results WBC 18.1 K/mcL (4.3-11.1) H 07/30/17 03:00 Hgb 10.6 g/dL (11.5-15.4) L D 07/30/17 03:00 Hct 34.2 % (35.3-44.9) L 07/30/17 03:00 MCH 27.2 pg (28.0-33.3) L 07/30/17 03:00 MCHC 31.0 g/dL (31.6-35.5) L 07/30/17 03:00 Metamyelocytes % 2.0 % (0) H 07/30/17 03:00 Myelocytes % 6.0 % (0) H 07/30/17 03:00 Neutrophils # 14.8 K/mcL (1.6-8.9) H 07/30/17 03:00 Nucleated RBCs/100 WBC 0.2 /100 WBC (0) H 07/30/17 03:00 Toxic Granulation Present (Not Present) A 07/27/17 03:23 Immature Plt Fraction 15.4 % (1.1-6.1) H 07/21/17 03:40 Hypochromasia Present (Not Present) A 07/23/17 03:27 Poikilocytosis 1+ (Not Present) A 07/26/17 04:08 APTT 66.6 Seconds (26.0-36.0) H 07/20/17 03:41 D-Dimer 565 ng/mLFEU (0-500) H 07/17/17 03:46 Heparin Anti-Xa, Unfract 0.99 IU/mL (0.30-0.70) H 07/18/17 06:00 ABG pH 7.53 pH Units (7.32-7.45) H 07/29/17 12:35 ABG pCO2 53 mmHg (35-45) H 07/29/17 12:35 ABG pO2 80 mmHg (85-104) L 07/29/17 12:35 ABG HCO3 44 mEq/L (21-27) H 07/29/17 12:35 ABG Total CO2 46 mEq/L (20-26) H 07/29/17 12:35 ABG Base Excess 19 mEq/L (-2 to 3) H 07/29/17 12:35 VBG pH 7.47 pH Units (7.32-7.42) H 07/29/17 04:02 VBG pCO2 64 mmHg (41-51) H 07/29/17 04:02 VBG pO2 100 mmHg (25-50) H 07/29/17 04:02 VBG HCO3 47 mEq/L (21-27) H 07/29/17 04:02 Potassium 3.1 mEq/L (3.5-5.1) L 07/30/17 03:00 Chloride 89 mEq/L (98-107) L 07/30/17 03:00 Carbon Dioxide 42 mEq/L (23-29) H* 07/30/17 03:00 BUN 27 mg/dL (6-20) H 07/30/17 03:00 BUN/Creatinine Ratio 43 (6-26) H 07/30/17 03:00 Glucose 124 mg/dL (70-105) H 07/30/17 03:00 POC Glucose 131 (58-89) H 07/31/17 00:03 Calcium 8.5 mg/dL (8.6-10.3) L 07/30/17 03:00 Venous Ioniz Calcium 1.09 mmol/L (1.15-1.35) L 07/26/17 04:27 AST 161 Units/L (13-39) H 07/23/17 14:30 ALT 332 Units/L (7-52) H 07/23/17 14:30 Troponin I 0.69 ng/mL (< 0.04) H* 07/18/17 04:00 B-Natriuretic Peptide 207 pg/mL (Less than 100) H 07/17/17 15:27 Serum Total Protein 5.4 g/dL (6.4-8.9) L 07/23/17 14:30 Albumin 2.4 g/dL (3.5-5.7) L 07/23/17 14:30 Albumin/Globulin Ratio 0.8 (1.1-2.2) L 07/23/17 14:30 Ur Specific Meta 1.029 (1.010-1.025) H 07/17/17 05:45 Vancomycin Trough 16 mcg/mL (5-10) H 07/28/17 10:25 Influenza Type B (PCR) DETECTED (Not Detect) A 07/23/17 14:30 Staphylococcus sp PCR DETECTED (Not Detect) A 07/22/17 11:05 Staph aureus (PCR) DETECTED (Not Detect) A 07/22/17 11:05 mecA-Methicil Res Gene DETECTED (Not Detect) A 07/22/17 11:05 - Microbiology Findings Microbiology Findings: Microbiology, Last 48 Hours 07/24/17 11:45 Blood Culture - Final Central Venous Catheter No growth. 07/28/17 15:22 Blood Culture - Preliminary Central Venous Catheter No growth. 07/28/17 15:22 Blood Culture - Preliminary Central Venous Catheter No growth. 07/28/17 16:20 Blood Culture - Preliminary Peripheral Venipuncture No growth. - Clinical Findings Intake & Output: Intake & Output 07/30/17 07/30/17 07/31/17 15:59 23:59 07:59 Intake Total 400 / 400 200 / 200 Output Total 725 / 725 300 / 300 225 / 225 Balance -325 / -325 -100 / -100 -225 / -225 Weight 59.8 kg - Attending Attestation - Attending Attestation I saw and evaluated this patient and my medical decision-making was reviewed with the Resident Physician. I agree with the documented findings, disposition and treatment plan as described except to the extent set forth below. We independently had [id number] contact with the patient I spent 31 minutes of Critical Care time with this patient. It involved decision making of high complexity to assess, manipulate, and support vital organ system failure and/or to prevent further life threatening deterioration of the patient's condition. The time involved in the performance of separately reportable procedures was not counted toward critical care time. Patient seen and examined at bedside Labs, radiology, chart personally reviewed MANAGER ELECTRONIC: Patient is conscious following commands extubated yesterday she is doing lot better Pulm: Patient has most likely MRSA pneumonia Vs Sinusitis Vs Mastoiditis MRSA bactremia responded well to antibiotics now blood cultures are negative , after aggressive diuresis patient did well on CPAP , gas exchange was adequate after 5 hrs of SBT extubated patient to BIPAP will closely monitor for next 24 hrs. Cards: Hemodynamically stable FEN-GI: On BIPAP to attempt clear liquid diet later Renal: Labs and output reviewed to continue diuresis to keep 500 ml to liter negative ID: MRSA bactremia now resolved repeat blood culture if it is positive patient will need TYE .To continue total course of 4 weeks of Vancomycin Heme/Onc: Labs reviewed Endo: Glucose Monitored Integ/MSK: Skin Care per routine ICU Nursing Protocol to prevent ulcers. Lines: All lines examined without evidence of infection : Dispo: critically ill High chance of respiratory failure after extubation CODE: Full Code . Spoke with Patient she deosnt want to be reintubated
[2017-07-30] MEDS: Pantoprazole 40 MG VIAL IVP SCH (08:49)
[2017-07-30] MEDS: Nicotine 14 MG PATCH.TD24 TD SCH (08:49)
[2017-07-30] MEDS: Chlorhexidine Rinse 15 ML MOUTHWASH MM SCH ×2 (08:49→19:48)
--- NOTE | 2017-07-30 09:00 | Infectious Disease Progress No ---
Date of Encounter: 07/30/17 Time of Encounter: 08:10 - Assessment and Plan (1) Septic shock due to methicillin resistant Staphylococcus aureus Current Visit: Yes Status: Acute Patient had WBC 16.9, hypotension, increased oxygen requirements on mechanical ventilation Organism: MRSA in sputum. Sputum culture 07/19/2017 positive for MRSA Blood culture 07/22/2017 positive for MRSA Sputum culture 07/22/2017 positive for MRSA Respiratory infectious panel positive for influenza B Legionella urine Antigen negative Blood culture (central line) Preliminary negative for growth. 07/28: WBC 18.9, patients respiratory status clinically improved, Continues to require mechanical ventilation. 07/29: WBC elevated to 24.9, clinically patient appears to have improved. Elevation may be secondary to steroids. 07/30: WBC improved to 18.1, segmented neutrophils 78%, 4% banded cells. patient extubated 07/29 and in no acute distress. Continues to be afebrile, BP stable. Respiratory effort improved since extubation. Plan: - Continue vancomycin pharmacy to dose total 4 weeks - TYE continues to be recommended with MRSA bacteremia when patient is clinically stable. (2) Ventilator-associated bacterial pneumonia Current Visit: Yes Status: Acute Patient required mechanical ventilation since 07/17/17, initial sputum culture negative, sputum culture from 07/19 and 07/22 positive for MRSA - Complicated risk factors include severe COPD, mechanical ventilation - CXR 07/22 concerning for Left lower lobe infiltrate, CT ABD/Pelvis- Bilateral lower lobe infiltrates, left greater than right. Trace left pleural effusion is suggested. CrCl: 72 - Respiratory infectious panel- positive for influenza B, MecA gene and staph aureus, Staphylococcus sp - Legionella urine antigen- NEGATIVE - Blood cultures 07/28: Preliminary no growth. Plan: - IV Vancomycin pharmacy to dose (Goal Trough 15) for 4wks (Through August 11) ( Day#9) - Tamiflu Discontinued 07/28 (3) Acute and chronic respiratory failure with hypercapnia Current Visit: No Status: Chronic Acute on chronic respiratory failure in a patient with known Severe COPD on hospice care. Respiratory infectious panel positive for influenza B, Sputum culture- MRSA growth. CXR and CT abd/pelvis demonstrate Bilateral lobe infiltrates. - Endotracheal tube removed 07/29, patient has tolerated. Palliative care involved. - Continue breathing treatments and IV steroids for management. - Continue Antibiotic choice as discussed above. (4) Pansinusitis Current Visit: Yes Status: Acute Pansinusitis and mastoiditis identified on head CT performed 07/22/17 - Organism unknown - Primary team consult to ENT for further evaluation and management. - Antibiotic coverage for MRSA as discussed above. Qualifiers: Chronicity: chronic Qualified Code(s): J32.4 - Chronic pansinusitis (5) Thrombocytopenia Current Visit: Yes Status: Acute Persistent stable thrombocytopenia, in the setting of acute illness. - Continue to monitor daily. - Continue to avoid Zyvox as it may worsen thrombocytopenia. (6) Leukocytosis Current Visit: Yes Status: Acute WBC 18.1, Clinical picture has improved. Suspect likely secondary to acute illness/ steroids and stress. - (Improving) Elevation in the setting of IV steroids, influenza B, MRSA pneumonia, gram-positive bacteremia and colitis - Continue to monitor daily. Qualifiers: Leukocytosis type: unspecified Qualified Code(s): D72.829 - Elevated white blood cell count, unspecified (7) MRSA bacteremia Current Visit: Yes Status: Acute Acutely ill 57-year-old female intubated on mechanical ventilation. - Blood culture 1 positive for MRSA - Sputum cultures positive for MRSA - PCR + MecA gene, staph species - Blood culture from Central line no growth 07/30: Blood cultures (07/28)x2 prelim NO GROWTH Plan: - Vancomycin as discussed above. (8) Persistent fever Current Visit: Yes Status: Acute Resolved - Continue treatment for influenza B, MRSA pneumonia, gram-positive bacteremia and colitis (9) Influenza B Current Visit: Yes Status: Resolved RIP positive for Influenza B - Unsure if this was the cause for initial decompensation followed by superimposed MRSA pneumonia as no influenza swab or RIP collected at the time of admission. Completed 5 days of Tamiflu. (10) Colitis Current Visit: Yes Status: Resolved Patient intubated, sedated with distended abdomen now with liquid stool with rectal tube. - CT abdomen/pelvis demonstrates findings suggestive of mild focal colitis involving the distal descending colon. 07/30: Clinical picture demonstrates improvement, patient denies abdominal pain , WBC improving and no current diarrhea. (11) Oral thrush Current Visit: Yes Status: Acute Patient has findings of oral thrush, post intubation - Nystatin swish and swallow. - Subjective Interval history: Ms. Vaughn has been seen and evaluated at bedside this am. She is alert, awake and interactive without appearing in distress. She has demonstrated improvement and respiratory stability post extubation. She denies any concerns this am. She denies Fevers, chills, sweating, headache, change in vision, shortness of breath outside her baseline, cough, sputum production, chest pain, abdominal pain, N/V/D/C. She has an appetite and says she is hungry but has not eaten yet. Infect Dis PN-Objective Data - Labs CBC & Chem 7: 07/30/17 03:00 07/30/17 03:00 Labs: Laboratory Results - last 24 hr 07/29/17 07/29/17 07/29/17 11:07 12:35 15:54 WBC RBC Hgb Hct MCV MCH MCHC RDW Plt Count MPV Seg Neutrophils % Band Neutrophils % Lymphocytes % Monocytes % Metamyelocytes % Myelocytes % Neutrophils # Lymphocytes # Monocytes # Nucleated RBCs/100 WBC Platelet Estimate Sample Site R Radial ABG pH 7.53 H ABG pCO2 53 H ABG pO2 80 L ABG HCO3 44 H ABG Total CO2 46 H ABG O2 Saturation 97 ABG Base Excess 19 H David Test Positive O2 Delivery Device Adult Vent Blood Gas Modality CPAP/PS Inspired O2 35.0 PEEP 5 Pressure Support 10 Sodium Potassium Chloride Carbon Dioxide BUN Creatinine Est GFR ( Amer) Est GFR (Non-Af Amer) BUN/Creatinine Ratio Glucose POC Glucose 155 H 101 H Calculated Osmolality Calcium 07/29/17 07/29/17 07/30/17 20:04 23:52 03:00 WBC 18.1 H RBC 3.90 Hgb 10.6 L D Hct 34.2 L MCV 87.7 MCH 27.2 L MCHC 31.0 L RDW 14.3 Plt Count 230 MPV 12.2 Seg Neutrophils % 78.0 Band Neutrophils % 4.0 Lymphocytes % 6.0 Monocytes % 4.0 Metamyelocytes % 2.0 H Myelocytes % 6.0 H Neutrophils # 14.8 H Lymphocytes # 1.1 Monocytes # 0.7 Nucleated RBCs/100 WBC 0.2 H Platelet Estimate Normal Sample Site ABG pH ABG pCO2 ABG pO2 ABG HCO3 ABG Total CO2 ABG O2 Saturation ABG Base Excess David Test O2 Delivery Device Blood Gas Modality Inspired O2 PEEP Pressure Support Sodium Potassium Chloride Carbon Dioxide BUN Creatinine Est GFR ( Amer) Est GFR (Non-Af Amer) BUN/Creatinine Ratio Glucose POC Glucose 123 H 158 H Calculated Osmolality Calcium 07/30/17 07/30/17 07/30/17 03:00 04:18 07:37 WBC RBC Hgb Hct MCV MCH MCHC RDW Plt Count MPV Seg Neutrophils % Band Neutrophils % Lymphocytes % Monocytes % Metamyelocytes % Myelocytes % Neutrophils # Lymphocytes # Monocytes # Nucleated RBCs/100 WBC Platelet Estimate Sample Site ABG pH ABG pCO2 ABG pO2 ABG HCO3 ABG Total CO2 ABG O2 Saturation ABG Base Excess David Test O2 Delivery Device Blood Gas Modality Inspired O2 PEEP Pressure Support Sodium 140 Potassium 3.1 L Chloride 89 L Carbon Dioxide 42 H* BUN 27 H Creatinine 0.63 Est GFR ( Amer) > 60 Est GFR (Non-Af Amer) > 60 BUN/Creatinine Ratio 43 H Glucose 124 H POC Glucose 123 H 127 H Calculated Osmolality 297 Calcium 8.5 L Cultures: Cultures 07/24/17 11:45 Blood Culture - Final Central Venous Catheter No growth. 07/28/17 15:22 Blood Culture - Preliminary Central Venous Catheter No growth. 07/28/17 15:22 Blood Culture - Preliminary Central Venous Catheter No growth. 07/28/17 16:20 Blood Culture - Preliminary Peripheral Venipuncture No growth. 07/22/17 11:00 Blood Culture - Final Peripheral Venipuncture No growth. 07/22/17 20:44 Sputum Culture - Final Sputum Methicillin Resistant S.aureus 07/22/17 11:05 Blood Culture - Final Peripheral Venipuncture Methicillin Resistant S.aureus 07/23/17 14:30 Legionella Antigen - Final Urine,Catheterized Streptococcus pneumoniae Antigen (M - Final 07/19/17 16:12 Sputum Culture - Final Sputum Methicillin Resistant S.aureus 07/17/17 15:27 Sputum Culture - Final Sputum Serology 07/24/17 07/23/17 07/22/17 Range/Units 11:45 14:30 11:05 Stl C. cayetanensis PCR Not detected (Not detect) Stool Rotavirus A PCR Not detected (Not detect) Stl Adenov F 40/41 PCR Not detected (Not detect) Stool Astrovirus (PCR) Not detected (Not detect) Stool Campylobacter PCR Not detected (Not detect) Stl C. diff Tox A/B PCR Not detected (Not detect) Stool Cryptosporidium PCR Not detected (Not detect) Stl Sh Tox Pr E STEC PCR Not detected (Not detect) Stool E coli O157 PCR Not detected (Not detect) Stl Enterotoxigenic E PCR Not detected (Not detect) Stool EPEC (PCR) Not detected (Not detect) Stool EAEC (PCR) Not detected (Not detect) Stl E. histolytica PCR Not detected (Not detect) Stool Giardia Lamblia PCR Not detected (Not detect) Stool Salmonella PCR Not detected (Not detect) Stool Sapovirus (PCR) Not detected (Not detect) Stl P. shigelloides PCR Not detected (Not detect) Stl Shigella/EIEC PCR Not detected (Not detect) St Y.enterocolitica PCR Not detected (Not detect) Stool Vibrio (PCR) Not detected (Not detect) Stl Vibrio cholerae PCR Not detected (Not detect) Stl Norovirus GI/GII PCR Not detected (Not detect) Stl GI Panel (PCR) Com See below A. baumannii (PCR) Not Detected (Not Detect) Chlamy pneumoniae PCR Not Detected (Not Detect) Adenovirus (PCR) Not Detected (Not Detect) B. pertussis DNA (PCR) Not Detected (Not Detect) B.parapertussis DNA PCR Not Detected (Not Detect) Nayely albicans (PCR) Not Detected (Not Detect) C. glabrata (PCR) Not Detected (Not Detect) C. krusei (PCR) Not Detected (Not Detect) C. parapsilosis (PCR) Not Detected (Not Detect) C. tropicalis (PCR) Not Detected (Not Detect) Coronavirus OC43 (PCR) Not Detected (Not Detect) Coronavirus HKU1 (PCR) Not Detected (Not Detect) Coronavirus 229E (PCR) Not Detected (Not Detect) Coronavirus NL63 (PCR) Not Detected (Not Detect) Enterobacteriac sp PCR Not Detected (Not Detect) E. cloacae complex PCR Not Detected (Not Detect) Enterococcus sp PCR Not Detected (Not Detect) E. coli (PCR) Not Detected (Not Detect) H. influenzae (PCR) Not Detected (Not Detect) Human Metapneumovir PCR Not Detected (Not Detect) Influenza A (H1) PCR Not Detected (Not Detect) Influ A (H1N1/09) PCR Not Detected (Not Detect) Influenza A (H3) PCR Not Detected (Not Detect) Influenza A Untype (PCR) Not Detected (Not Detect) Influenza Type B (PCR) DETECTED A (Not Detect) Klebsiella oxytoca PCR Not Detected (Not Detect) Klebsiella pneumoniae Not Detected (Not Detect) List. monocytogenes PCR Not Detected (Not Detect) M.pneumoniae DNA (PCR) Not Detected (Not Detect) N. meningitidis (PCR) Not Detected (Not Detect) Parainfluenza 1 (PCR) Not Detected (Not Detect) Parainfluenza 2 (PCR) Not Detected (Not Detect) Parainfluenza 3 (PCR) Not Detected (Not Detect) Parainfluenza 4 (PCR) Not Detected (Not Detect) Proteus species (PCR) Not Detected (Not Detect) RSV (PCR) Not Detected (Not Detect) Entero/Rhino (PCR) Not Detected (Not Detect) Serratia marcescens PCR Not Detected (Not Detect) Staphylococcus sp PCR DETECTED A (Not Detect) Staph aureus (PCR) DETECTED A (Not Detect) mecA-Methicil Res Gene DETECTED A (Not Detect) Streptococcus sp PCR Not Detected (Not Detect) Group A Strep DNA Not Detected (Not Detect) Group B Strep (PCR) Not Detected (Not Detect) Strep pneumoniae (PCR) Not Detected (Not Detect) P. aeruginosa (PCR) Not Detected (Not Detect) Tristian/B-Vanco Res Genes N/A (Not Detect) KPC (blaKPC) Detect PCR N/A (Not Detect) Exam - Constitutional Vitals: Temp Pulse Resp BP Pulse Ox 97.7 F 74 20 117/77 100 07/30/17 07:00 07/30/17 08:00 07/30/17 08:00 07/30/17 08:00 07/30/17 08:00 Exam: General: Awake, alert and interactive in no acute distress. HEENT: Nc/AT, PERRLA, oral thrush seen with dry lips, neck supple, trachea midline Chest: Symmetric bilaterally correlating with respiratory effort which is non- labored Cardiac: Regular rate and rhythm, positive S1 and S2. no bruits appreciated bilateral carotids, Radial pulses 2+ bilateral, posterior tibial and dorsal pedal pulses 2+ bilateral. Respiratory:diffuse expiratory wheezing Abdomen: Soft, nontender, hypoactive bowel sounds. Extremities: Symmetric bilateral, bilateral upper and lower extremities demonstrate anasarca - VTE Documentation of Mechanical Device: Intermittent pneumatic compression device Consult Discharge Plan - Plan Referrals: NONE,PCP [Primary Care Provider] - - Attending Attestation I examined this patient and my medical decision-making was reviewed with the Resident Physician. I agree with the documented findings, disposition and treatment plan as described except to the extent set forth below. Patient seen and examined. Agree with above findings and review of system and physical exam. Clinically patient doing much better she is extubated. No acute distress. Past to swallow eval. Patient will be started did when feeding. Continue vancomycin for now. Will need a TYE once stable No endocarditis stigmata on physical exam Duration of treatment depends on the clinical picture.
[2017-07-30] MEDS: Norepinephrine 4 MG in D5% in Water 250 ML IVC SCH (09:46)
--- NOTE | 2017-07-30 10:42 | Palliative Progress Note ---
Date of Encounter: 07/30/17 Time of Encounter: 10:30 - Assessment and plan (1) Generalized pain Current Visit: Yes Status: Acute Assessment and plan: Transition acetaminophen to PO if needed. (2) Anxiety Current Visit: No Status: Chronic Assessment and plan: Remains on Precedex per ICU protocol (3) Goals of care, counseling/discussion Current Visit: Yes Status: Acute Assessment and plan: Patient has been extubated since yesterday and is alert and oriented. Taking po fluids. She has discussed with ICU team that she does not want intubated again and does not want CPR. I discussed with her again and she does still state that she is "done with ventilator", and does not desire to be reintubated. Discussed heroic measures as well and she does not want CPR or resuscitation for cardiac arrest. She does continue to desire supportive care and to come back to the hospital for treatment as needed, and is ok with IV therapy or Bipap as needed. Completed state form but pt was unable to sign r/t weakness and unable to grasp pen. D/W primary nurse Markus, pt had also had the same conversation with him as well as resident, Dr. Leyda Howard. Informed pt that she needs to discuss her decision with her son Kiet when he arrives, also asked Markus to notify me if he arrives and I will d/w him as well. (4) Acute exacerbation of chronic obstructive airways disease Current Visit: No Status: Acute (5) Acute and chronic respiratory failure with hypercapnia Current Visit: No Status: Resolved - Time Spent With Patient Total time spent is greater than 50% in coordination of care (as documented) at patient's floor/unit and/or counseling patient: 25 - 35 minutes - Subjective Interval history: Patient extubated yesterday, awake and alert and oriented. Follows commands. Speaks in a whisper. Taking sips of water well. Denies pain or discomfort. Appears weak. - Constitutional Vitals: Abnormal lab results WBC 18.1 K/mcL (4.3-11.1) H 07/30/17 03:00 Hgb 10.6 g/dL (11.5-15.4) L D 07/30/17 03:00 Hct 34.2 % (35.3-44.9) L 07/30/17 03:00 MCH 27.2 pg (28.0-33.3) L 07/30/17 03:00 MCHC 31.0 g/dL (31.6-35.5) L 07/30/17 03:00 Metamyelocytes % 2.0 % (0) H 07/30/17 03:00 Myelocytes % 6.0 % (0) H 07/30/17 03:00 Neutrophils # 14.8 K/mcL (1.6-8.9) H 07/30/17 03:00 Nucleated RBCs/100 WBC 0.2 /100 WBC (0) H 07/30/17 03:00 Toxic Granulation Present (Not Present) A 07/27/17 03:23 Immature Plt Fraction 15.4 % (1.1-6.1) H 07/21/17 03:40 Hypochromasia Present (Not Present) A 07/23/17 03:27 Poikilocytosis 1+ (Not Present) A 07/26/17 04:08 APTT 66.6 Seconds (26.0-36.0) H 07/20/17 03:41 D-Dimer 565 ng/mLFEU (0-500) H 07/17/17 03:46 Heparin Anti-Xa, Unfract 0.99 IU/mL (0.30-0.70) H 07/18/17 06:00 ABG pH 7.53 pH Units (7.32-7.45) H 07/29/17 12:35 ABG pCO2 53 mmHg (35-45) H 07/29/17 12:35 ABG pO2 80 mmHg (85-104) L 07/29/17 12:35 ABG HCO3 44 mEq/L (21-27) H 07/29/17 12:35 ABG Total CO2 46 mEq/L (20-26) H 07/29/17 12:35 ABG Base Excess 19 mEq/L (-2 to 3) H 07/29/17 12:35 VBG pH 7.47 pH Units (7.32-7.42) H 07/29/17 04:02 VBG pCO2 64 mmHg (41-51) H 07/29/17 04:02 VBG pO2 100 mmHg (25-50) H 07/29/17 04:02 VBG HCO3 47 mEq/L (21-27) H 07/29/17 04:02 Potassium 3.1 mEq/L (3.5-5.1) L 07/30/17 03:00 Chloride 89 mEq/L (98-107) L 07/30/17 03:00 Carbon Dioxide 42 mEq/L (23-29) H* 07/30/17 03:00 BUN 27 mg/dL (6-20) H 07/30/17 03:00 BUN/Creatinine Ratio 43 (6-26) H 07/30/17 03:00 Glucose 124 mg/dL (70-105) H 07/30/17 03:00 POC Glucose 127 (58-89) H 07/30/17 07:37 Calcium 8.5 mg/dL (8.6-10.3) L 07/30/17 03:00 Venous Ioniz Calcium 1.09 mmol/L (1.15-1.35) L 07/26/17 04:27 AST 161 Units/L (13-39) H 07/23/17 14:30 ALT 332 Units/L (7-52) H 07/23/17 14:30 Troponin I 0.69 ng/mL (< 0.04) H* 07/18/17 04:00 B-Natriuretic Peptide 207 pg/mL (Less than 100) H 07/17/17 15:27 Serum Total Protein 5.4 g/dL (6.4-8.9) L 07/23/17 14:30 Albumin 2.4 g/dL (3.5-5.7) L 07/23/17 14:30 Albumin/Globulin Ratio 0.8 (1.1-2.2) L 07/23/17 14:30 Ur Specific [place] 1.029 (1.010-1.025) H 07/17/17 05:45 Vancomycin Trough 16 mcg/mL (5-10) H 07/28/17 10:25 Influenza Type B (PCR) DETECTED (Not Detect) A 07/23/17 14:30 Staphylococcus sp PCR DETECTED (Not Detect) A 07/22/17 11:05 Staph aureus (PCR) DETECTED (Not Detect) A 07/22/17 11:05 mecA-Methicil Res Gene DETECTED (Not Detect) A 07/22/17 11:05 General appearance: Present: no acute distress - Respiratory Additional comments: Breath sounds diminished throughout with faint expiratory wheezed - Cardiovascular Cardiovascular exam: Present: +S1, +S2 - GI/Abdominal GI/Abdominal exam: Present: distended, normal bowel sounds, soft - Additional comments: Navarro with light anjana urine - Extremities Exam Additional comments: Bilateral hands puffy - generalized edema to upper extremities 1-2+ - Neurological Exam Neurological exam: Present: alert, oriented X3 Additional comments: Generalized weakness. FIGUEROA but Unable to lift arms and hold off of bed for more than a couple of seconds. - Skin Skin exam: Present: dry, pallor, warm Palliative Quality Palliative Quality: Screen for Code Status: Yes, Screen for Goals of Care: NA, Screen for Pain: Yes, If Pain Regimen Started, Initiate Bowel Regimen: NA, Screen for Nausea/Vomitting: NA Code Status: 07/17/17 11:52 FULL [Resuscitation Status: Active] [RES] Routine Comment: Resuscitation Status: Full Code - Labs CBC & Chem 7: 07/30/17 03:00 07/30/17 03:00 Labs: Laboratory Results - last 24 hr 07/29/17 07/29/17 07/29/17 11:07 12:35 15:54 WBC RBC Hgb Hct MCV MCH MCHC RDW Plt Count MPV Seg Neutrophils % Band Neutrophils % Lymphocytes % Monocytes % Metamyelocytes % Myelocytes % Neutrophils # Lymphocytes # Monocytes # Nucleated RBCs/100 WBC Platelet Estimate Sample Site R Radial ABG pH 7.53 H ABG pCO2 53 H ABG pO2 80 L ABG HCO3 44 H ABG Total CO2 46 H ABG O2 Saturation 97 ABG Base Excess 19 H David Test Positive O2 Delivery Device Adult Vent Blood Gas Modality CPAP/PS Inspired O2 35.0 PEEP 5 Pressure Support 10 Sodium Potassium Chloride Carbon Dioxide BUN Creatinine Est GFR ( Amer) Est GFR (Non-Af Amer) BUN/Creatinine Ratio Glucose POC Glucose 155 H 101 H Calculated Osmolality Calcium 07/29/17 07/29/17 07/30/17 20:04 23:52 03:00 WBC 18.1 H RBC 3.90 Hgb 10.6 L D Hct 34.2 L MCV 87.7 MCH 27.2 L MCHC 31.0 L RDW 14.3 Plt Count 230 MPV 12.2 Seg Neutrophils % 78.0 Band Neutrophils % 4.0 Lymphocytes % 6.0 Monocytes % 4.0 Metamyelocytes % 2.0 H Myelocytes % 6.0 H Neutrophils # 14.8 H Lymphocytes # 1.1 Monocytes # 0.7 Nucleated RBCs/100 WBC 0.2 H Platelet Estimate Normal Sample Site ABG pH ABG pCO2 ABG pO2 ABG HCO3 ABG Total CO2 ABG O2 Saturation ABG Base Excess David Test O2 Delivery Device Blood Gas Modality Inspired O2 PEEP Pressure Support Sodium Potassium Chloride Carbon Dioxide BUN Creatinine Est GFR ( Amer) Est GFR (Non-Af Amer) BUN/Creatinine Ratio Glucose POC Glucose 123 H 158 H Calculated Osmolality Calcium 07/30/17 07/30/17 07/30/17 03:00 04:18 07:37 WBC RBC Hgb Hct MCV MCH MCHC RDW Plt Count MPV Seg Neutrophils % Band Neutrophils % Lymphocytes % Monocytes % Metamyelocytes % Myelocytes % Neutrophils # Lymphocytes # Monocytes # Nucleated RBCs/100 WBC Platelet Estimate Sample Site ABG pH ABG pCO2 ABG pO2 ABG HCO3 ABG Total CO2 ABG O2 Saturation ABG Base Excess David Test O2 Delivery Device Blood Gas Modality Inspired O2 PEEP Pressure Support Sodium 140 Potassium 3.1 L Chloride 89 L Carbon Dioxide 42 H* BUN 27 H Creatinine 0.63 Est GFR ( Amer) > 60 Est GFR (Non-Af Amer) > 60 BUN/Creatinine Ratio 43 H Glucose 124 H POC Glucose 123 H 127 H Calculated Osmolality 297 Calcium 8.5 L - ABG Interpretation ABG results: ABG ABG pH 7.53 pH Units (7.32-7.45) H 07/29/17 12:35 ABG pCO2 53 mmHg (35-45) H 07/29/17 12:35 ABG pO2 80 mmHg (85-104) L 07/29/17 12:35 ABG O2 Saturation 97 % (95-98) 07/29/17 12:35 PT/INR, D-dimer PT 11.9 Seconds (9.4-12.1) 07/17/17 03:46 D-Dimer 565 ng/mLFEU (0-500) H 07/17/17 03:46 Consult Discharge Plan - Plan Referrals: NONE,PCP [Primary Care Provider] -
[2017-07-30] MEDS: Vancomycin 500 MG in 0.9 % Sodium Chloride Mini Bag 100 ML IVPB SCH ×2 (12:11→23:19)
[2017-07-30] MEDS: Nystatin POWDER 30 GM BOTTLE TP SCH ×2 (12:11→19:49)
[2017-07-31] MEDS: Ipratropium/Albuterol Neb 3 ML IH SCH ×7 (00:42→23:48)
[2017-07-31] MEDS: Dexmedetomidine HCl 400 MCG/100 ML MLS IVC SCH (01:08)
[2017-07-31 03:22] LABS: Hematocrit 34.5 % (35.3-44.9); Hemoglobin 10.8 g/dL (11.5-15.4); Mean Corpuscular HGB Conc 31.3 g/dL (31.6-35.5); Mean Corpuscular Hemoglobin 27.5 pg (28.0-33.3); Mean Corpuscular Volume 87.8 fL (83.0-100.0); Mean Platelet Volume 12.1 fL (9.4-12.4); Nucleated Red Blood Cells 0.1 /100 WBC (0); Platelet Count 239 K/mcL (140-400); Red Blood Count 3.93 M/mcL (3.82-4.97); Red Cell Distribution Width 14.6 % (11.5-14.5)
[2017-07-31 03:38] LABS: BUN/Creatinine Ratio 39 (6-26); Blood Urea Nitrogen 24 mg/dL (6-20); Calcium 8.8 mg/dL (8.6-10.3); Carbon Dioxide 39 mEq/L (23-29); Chloride 89 mEq/L (98-107); Glucose 153 mg/dL (70-105); Osmolality,Calculated 293 (280-300); Potassium 3.1 mEq/L (3.5-5.1); Sodium 138 mEq/L (136-145); eGFR For African Americans > 60 (> 60); eGFR For Non-African Americans > 60 (> 60)
[2017-07-31 03:50] LABS: Lymphocytes # 1.9 K/mcL (0.6-4.6); Neutrophils # 17.2 K/mcL (1.6-8.9)
[2017-07-31 03:51] LABS: Platelet Estimate Normal (Normal); Reactive Lymphocytes Present (Not Present)
[2017-07-31] MEDS: Lacri-Lube 3.5 GM TUBE BOTH EYES SCH ×2 (04:09→08:47)
[2017-07-31] MEDS: Potassium Chloride 10 MEQ in 0.9 % Sodium Chloride 100 ML IVPB PRN ×2 (05:13→06:36)
[2017-07-31] MEDS: *HR* Heparin 5,000 UNIT/ML VIAL SQ SCH ×2 (07:02→17:22)
[2017-07-31] MEDS: MethylPREDNISolone 40 MG/ML VIAL IVP SCH ×2 (07:03→17:22)
[2017-07-31] MEDS: Budesonide/Formoterol 160/4.5 MDI IH SCH ×2 (08:01→19:46)
[2017-07-31] MEDS: Norepinephrine 4 MG in D5% in Water 250 ML IVC SCH (08:47)
[2017-07-31] MEDS ORDERED: Potassium Chloride Elixir 20 MEQ/15 ML UDC PO ONE (08:54)
[2017-07-31] MEDS: Pantoprazole 40 MG VIAL IVP SCH (09:07)
[2017-07-31] MEDS: Chlorhexidine Rinse 15 ML MOUTHWASH MM SCH (09:07)
[2017-07-31] MEDS: Nicotine 14 MG PATCH.TD24 TD SCH (09:08)
[2017-07-31] MEDS: Insulin LISPRO 300 UNITS/3 ML VIAL SQ SCH ×4 (09:17→21:14)
--- NOTE | 2017-07-31 09:17 | Infectious Disease Progress No ---
Date of Encounter: 07/31/17 Time of Encounter: 09:14 - Assessment and Plan (1) Septic shock due to methicillin resistant Staphylococcus aureus Current Visit: Yes Status: Acute Patient had WBC 16.9, hypotension, increased oxygen requirements on mechanical ventilation Organism: MRSA in sputum. Sputum culture 07/19/2017 positive for MRSA Blood culture 07/22/2017 positive for MRSA Sputum culture 07/22/2017 positive for MRSA Respiratory infectious panel positive for influenza B Legionella urine Antigen negative Blood culture (central line) Preliminary negative for growth. 07/28: WBC 18.9, patients respiratory status clinically improved, Continues to require mechanical ventilation. 07/29: WBC elevated to 24.9, clinically patient appears to have improved. Elevation may be secondary to steroids. 07/30: WBC improved to 18.1, segmented neutrophils 78%, 4% banded cells. patient extubated 07/29 and in no acute distress. Continues to be afebrile, BP stable. Respiratory effort improved since extubation. 07/31: Labile WBC (19.1), segmented neutrophils 90%, Continues to present stable. Plan: - Continue vancomycin pharmacy to dose total 4 weeks - TYE continues to be recommended with MRSA bacteremia when patient is clinically stable. (2) Ventilator-associated bacterial pneumonia Current Visit: Yes Status: Acute Patient required mechanical ventilation since 07/17/17, initial sputum culture negative, sputum culture from 07/19 and 07/22 positive for MRSA - Complicated risk factors include severe COPD, mechanical ventilation - CXR 07/22 concerning for Left lower lobe infiltrate, CT ABD/Pelvis- Bilateral lower lobe infiltrates, left greater than right. Trace left pleural effusion is suggested. CrCl: 72 - Respiratory infectious panel- positive for influenza B, MecA gene and staph aureus, Staphylococcus sp - Legionella urine antigen- NEGATIVE - Blood cultures 07/28: Preliminary no growth. Plan: - IV Vancomycin pharmacy to dose (Goal Trough 15) for 4wks (Through August 11) ( Day#10) - Tamiflu Discontinued 07/28 (3) Acute and chronic respiratory failure with hypercapnia Current Visit: No Status: Chronic Acute on chronic respiratory failure in a patient with known Severe COPD on hospice care. Respiratory infectious panel positive for influenza B, Sputum culture- MRSA growth. CXR and CT abd/pelvis demonstrate Bilateral lobe infiltrates. - Endotracheal tube removed 07/29, patient has tolerated. Palliative care involved. - Continue breathing treatments and IV steroids for management. - Continue Antibiotic choice as discussed above. (4) Pansinusitis Current Visit: Yes Status: Acute Pansinusitis and mastoiditis identified on head CT performed 07/22/17 - Organism unknown - Primary team consult to ENT for further evaluation and management. - Antibiotic coverage for MRSA as discussed above. Qualifiers: Chronicity: chronic Qualified Code(s): J32.4 - Chronic pansinusitis (5) Thrombocytopenia Current Visit: Yes Status: Acute Thrombocytopenia resolving with increase in platelet count currently 236, likely reduction in the setting of severe acute illness. - Continue to monitor daily. - Continue to avoid Zyvox as it may worsen thrombocytopenia. (6) Leukocytosis Current Visit: Yes Status: Acute WBC 19.1 mild elevation compared to yesterday but clinical picture unchanged. Suspect likely secondary to acute illness/ steroids and stress. - (Improving) Elevation in the setting of IV steroids, influenza B, MRSA pneumonia, gram-positive bacteremia and colitis - Continue to monitor daily. Qualifiers: Leukocytosis type: unspecified Qualified Code(s): D72.829 - Elevated white blood cell count, unspecified (7) MRSA bacteremia Current Visit: Yes Status: Acute Acutely ill 57-year-old female intubated on mechanical ventilation. - Blood culture 1 positive for MRSA - Sputum cultures positive for MRSA - PCR + MecA gene, staph species - Blood culture from Central line no growth 07/30: Blood cultures (07/28)x2 prelim NO GROWTH Plan: - Vancomycin as discussed above. (8) Persistent fever Current Visit: Yes Status: Acute Resolved - Continue treatment for influenza B, MRSA pneumonia, gram-positive bacteremia and colitis (9) Influenza B Current Visit: Yes Status: Resolved RIP positive for Influenza B - Unsure if this was the cause for initial decompensation followed by superimposed MRSA pneumonia as no influenza swab or RIP collected at the time of admission. Completed 5 days of Tamiflu. (10) Colitis Current Visit: Yes Status: Resolved Patient was intubated, sedated with distended abdomen now with liquid stool with rectal tube. - CT abdomen/pelvis demonstrates findings suggestive of mild focal colitis involving the distal descending colon. 07/31: Clinical picture demonstrates improvement, patient denies abdominal pain , no current diarrhea. (11) Oral thrush Current Visit: Yes Status: Acute Patient has findings of oral thrush, post intubation - Nystatin swish and swallow. - Subjective Interval history: Ms. Vaughn has been seen and evaluated at bedside this am. She is alert, awake and interactive without appearing in distress. She tolerated sitting on the edge of the bed with physical therapy today. She denies any concerns overnight. She denies any fevers, chills, diaphoresis, chest pain, SOB, productive cough, abdominal discomfort, or pain in her extremities. She feels her breathing is appropriate and has no other concerns for Infectious Disease service. Infect Dis PN-Objective Data - Labs CBC & Chem 7: 07/31/17 03:03 07/31/17 03:03 Labs: Laboratory Results - last 24 hr 07/30/17 07/30/17 07/31/17 12:05 21:04 00:03 WBC RBC Hgb Hct MCV MCH MCHC RDW Plt Count MPV Seg Neutrophils % Lymphocytes % Neutrophils # Lymphocytes # Nucleated RBCs/100 WBC Reactive Lymphocytes Platelet Estimate Sodium Potassium Chloride Carbon Dioxide BUN Creatinine Est GFR ( Amer) Est GFR (Non-Af Amer) BUN/Creatinine Ratio Glucose POC Glucose 258 H 119 H 131 H Calculated Osmolality Calcium Magnesium 07/31/17 07/31/17 07/31/17 03:03 03:03 04:39 WBC 19.1 H RBC 3.93 Hgb 10.8 L Hct 34.5 L MCV 87.8 MCH 27.5 L MCHC 31.3 L RDW 14.6 H Plt Count 239 MPV 12.1 Seg Neutrophils % 90.0 Lymphocytes % 10.0 Neutrophils # 17.2 H Lymphocytes # 1.9 Nucleated RBCs/100 WBC 0.1 H Reactive Lymphocytes Present A Platelet Estimate Normal Sodium 138 Potassium 3.1 L Chloride 89 L Carbon Dioxide 39 H BUN 24 H Creatinine 0.62 Est GFR ( Amer) > 60 Est GFR (Non-Af Amer) > 60 BUN/Creatinine Ratio 39 H Glucose 153 H POC Glucose 151 H Calculated Osmolality 293 Calcium 8.8 Magnesium 2.0 07/31/17 07:55 WBC RBC Hgb Hct MCV MCH MCHC RDW Plt Count MPV Seg Neutrophils % Lymphocytes % Neutrophils # Lymphocytes # Nucleated RBCs/100 WBC Reactive Lymphocytes Platelet Estimate Sodium Potassium Chloride Carbon Dioxide BUN Creatinine Est GFR ( Amer) Est GFR (Non-Af Amer) BUN/Creatinine Ratio Glucose POC Glucose 151 H Calculated Osmolality Calcium Magnesium Cultures: Cultures 07/24/17 11:45 Blood Culture - Final Central Venous Catheter No growth. 07/28/17 15:22 Blood Culture - Preliminary Central Venous Catheter No growth. 07/28/17 15:22 Blood Culture - Preliminary Central Venous Catheter No growth. 07/28/17 16:20 Blood Culture - Preliminary Peripheral Venipuncture No growth. 07/22/17 11:00 Blood Culture - Final Peripheral Venipuncture No growth. 07/22/17 20:44 Sputum Culture - Final Sputum Methicillin Resistant S.aureus 07/22/17 11:05 Blood Culture - Final Peripheral Venipuncture Methicillin Resistant S.aureus 07/23/17 14:30 Legionella Antigen - Final Urine,Catheterized Streptococcus pneumoniae Antigen (M - Final 07/19/17 16:12 Sputum Culture - Final Sputum Methicillin Resistant S.aureus 07/17/17 15:27 Sputum Culture - Final Sputum Serology 07/24/17 07/23/17 07/22/17 Range/Units 11:45 14:30 11:05 Stl C. cayetanensis PCR Not detected (Not detect) Stool Rotavirus A PCR Not detected (Not detect) Stl Adenov F 40/41 PCR Not detected (Not detect) Stool Astrovirus (PCR) Not detected (Not detect) Stool Campylobacter PCR Not detected (Not detect) Stl C. diff Tox A/B PCR Not detected (Not detect) Stool Cryptosporidium PCR Not detected (Not detect) Stl Sh Tox Pr E STEC PCR Not detected (Not detect) Stool E coli O157 PCR Not detected (Not detect) Stl Enterotoxigenic E PCR Not detected (Not detect) Stool EPEC (PCR) Not detected (Not detect) Stool EAEC (PCR) Not detected (Not detect) Stl E. histolytica PCR Not detected (Not detect) Stool Giardia Lamblia PCR Not detected (Not detect) Stool Salmonella PCR Not detected (Not detect) Stool Sapovirus (PCR) Not detected (Not detect) Stl P. shigelloides PCR Not detected (Not detect) Stl Shigella/EIEC PCR Not detected (Not detect) St Y.enterocolitica PCR Not detected (Not detect) Stool Vibrio (PCR) Not detected (Not detect) Stl Vibrio cholerae PCR Not detected (Not detect) Stl Norovirus GI/GII PCR Not detected (Not detect) Stl GI Panel (PCR) Com See below A. baumannii (PCR) Not Detected (Not Detect) Chlamy pneumoniae PCR Not Detected (Not Detect) Adenovirus (PCR) Not Detected (Not Detect) B. pertussis DNA (PCR) Not Detected (Not Detect) B.parapertussis DNA PCR Not Detected (Not Detect) Nayely albicans (PCR) Not Detected (Not Detect) C. glabrata (PCR) Not Detected (Not Detect) C. krusei (PCR) Not Detected (Not Detect) C. parapsilosis (PCR) Not Detected (Not Detect) C. tropicalis (PCR) Not Detected (Not Detect) Coronavirus OC43 (PCR) Not Detected (Not Detect) Coronavirus HKU1 (PCR) Not Detected (Not Detect) Coronavirus 229E (PCR) Not Detected (Not Detect) Coronavirus NL63 (PCR) Not Detected (Not Detect) Enterobacteriac sp PCR Not Detected (Not Detect) E. cloacae complex PCR Not Detected (Not Detect) Enterococcus sp PCR Not Detected (Not Detect) E. coli (PCR) Not Detected (Not Detect) H. influenzae (PCR) Not Detected (Not Detect) Human Metapneumovir PCR Not Detected (Not Detect) Influenza A (H1) PCR Not Detected (Not Detect) Influ A (H1N1/09) PCR Not Detected (Not Detect) Influenza A (H3) PCR Not Detected (Not Detect) Influenza A Untype (PCR) Not Detected (Not Detect) Influenza Type B (PCR) DETECTED A (Not Detect) Klebsiella oxytoca PCR Not Detected (Not Detect) Klebsiella pneumoniae Not Detected (Not Detect) List. monocytogenes PCR Not Detected (Not Detect) M.pneumoniae DNA (PCR) Not Detected (Not Detect) N. meningitidis (PCR) Not Detected (Not Detect) Parainfluenza 1 (PCR) Not Detected (Not Detect) Parainfluenza 2 (PCR) Not Detected (Not Detect) Parainfluenza 3 (PCR) Not Detected (Not Detect) Parainfluenza 4 (PCR) Not Detected (Not Detect) Proteus species (PCR) Not Detected (Not Detect) RSV (PCR) Not Detected (Not Detect) Entero/Rhino (PCR) Not Detected (Not Detect) Serratia marcescens PCR Not Detected (Not Detect) Staphylococcus sp PCR DETECTED A (Not Detect) Staph aureus (PCR) DETECTED A (Not Detect) mecA-Methicil Res Gene DETECTED A (Not Detect) Streptococcus sp PCR Not Detected (Not Detect) Group A Strep DNA Not Detected (Not Detect) Group B Strep (PCR) Not Detected (Not Detect) Strep pneumoniae (PCR) Not Detected (Not Detect) P. aeruginosa (PCR) Not Detected (Not Detect) Tristian/B-Vanco Res Genes N/A (Not Detect) KPC (blaKPC) Detect PCR N/A (Not Detect) Exam - Constitutional Vitals: Temp Pulse Resp BP Pulse Ox 98.2 F 81 23 116/85 99 07/31/17 08:43 07/31/17 08:02 07/31/17 08:03 07/31/17 08:00 07/31/17 08:03 Exam: General: Awake, alert and interactive in no acute distress. HEENT: NC/AT, PERRLA, oral thrush seen with dry lips, neck supple, trachea midline Chest: Symmetric bilaterally correlating with respiratory effort, Tachypnea Cardiac: Regular rate and rhythm, positive S1 and S2. no bruits appreciated bilateral carotids, Radial pulses 2+ bilateral, posterior tibial and dorsal pedal pulses 2+ bilateral. Respiratory:diffuse expiratory wheezing Abdomen: Soft, nontender, hypoactive bowel sounds. Extremities: Symmetric bilateral, bilateral upper and lower extremities demonstrate anasarca - VTE Documentation of Mechanical Device: Intermittent pneumatic compression device Consult Discharge Plan - Plan Referrals: NONE,PCP [Primary Care Provider] - - Attending Attestation I examined this patient and my medical decision-making was reviewed with the Resident Physician. I agree with the documented findings, disposition and treatment plan as described except to the extent set forth below.
--- NOTE | 2017-07-31 09:45 | Palliative Progress Note ---
Date of Encounter: 07/31/17 Time of Encounter: 09:40 - Assessment and plan (1) Debility Current Visit: Yes Status: Acute Assessment and plan: PT/OT has been ordered. She is very weak - will need therapy when returning to rehab. (2) Generalized pain Current Visit: Yes Status: Acute Assessment and plan: Has Acetaminophen ordered PRN - has not utilized. (3) Anxiety Current Visit: No Status: Chronic (4) Goals of care, counseling/discussion Current Visit: Yes Status: Acute Assessment and plan: Son has not visited over last 24 hours. Will try and reach by phone today to update him on code status discussion. D/W patient who understands why he needs this information. Palliative will follow at a distance (5) Acute exacerbation of chronic obstructive airways disease Current Visit: No Status: Acute (6) Acute and chronic respiratory failure with hypercapnia Current Visit: No Status: Resolved - Time Spent With Patient Total time spent is greater than 50% in coordination of care (as documented) at patient's floor/unit and/or counseling patient: less than 15 minutes - Subjective Interval history: Patient awake and alert, remains hoarse and speaks with a whisper. Very weak. Denies pain. Harsh cough - unable to expectorate. No visitors present. - Constitutional Vitals: Abnormal lab results WBC 19.1 K/mcL (4.3-11.1) H 07/31/17 03:03 Hgb 10.8 g/dL (11.5-15.4) L 07/31/17 03:03 Hct 34.5 % (35.3-44.9) L 07/31/17 03:03 MCH 27.5 pg (28.0-33.3) L 07/31/17 03:03 MCHC 31.3 g/dL (31.6-35.5) L 07/31/17 03:03 RDW 14.6 % (11.5-14.5) H 07/31/17 03:03 Metamyelocytes % 2.0 % (0) H 07/30/17 03:00 Myelocytes % 6.0 % (0) H 07/30/17 03:00 Neutrophils # 17.2 K/mcL (1.6-8.9) H 07/31/17 03:03 Nucleated RBCs/100 WBC 0.1 /100 WBC (0) H 07/31/17 03:03 Reactive Lymphocytes Present (Not Present) A 07/31/17 03:03 Toxic Granulation Present (Not Present) A 07/27/17 03:23 Immature Plt Fraction 15.4 % (1.1-6.1) H 07/21/17 03:40 Hypochromasia Present (Not Present) A 07/23/17 03:27 Poikilocytosis 1+ (Not Present) A 07/26/17 04:08 APTT 66.6 Seconds (26.0-36.0) H 07/20/17 03:41 D-Dimer 565 ng/mLFEU (0-500) H 07/17/17 03:46 Heparin Anti-Xa, Unfract 0.99 IU/mL (0.30-0.70) H 07/18/17 06:00 ABG pH 7.53 pH Units (7.32-7.45) H 07/29/17 12:35 ABG pCO2 53 mmHg (35-45) H 07/29/17 12:35 ABG pO2 80 mmHg (85-104) L 07/29/17 12:35 ABG HCO3 44 mEq/L (21-27) H 07/29/17 12:35 ABG Total CO2 46 mEq/L (20-26) H 07/29/17 12:35 ABG Base Excess 19 mEq/L (-2 to 3) H 07/29/17 12:35 VBG pH 7.47 pH Units (7.32-7.42) H 07/29/17 04:02 VBG pCO2 64 mmHg (41-51) H 07/29/17 04:02 VBG pO2 100 mmHg (25-50) H 07/29/17 04:02 VBG HCO3 47 mEq/L (21-27) H 07/29/17 04:02 Potassium 3.1 mEq/L (3.5-5.1) L 07/31/17 03:03 Chloride 89 mEq/L (98-107) L 07/31/17 03:03 Carbon Dioxide 39 mEq/L (23-29) H 07/31/17 03:03 BUN 24 mg/dL (6-20) H 07/31/17 03:03 BUN/Creatinine Ratio 39 (6-26) H 07/31/17 03:03 Glucose 153 mg/dL (70-105) H 07/31/17 03:03 POC Glucose 151 (58-89) H 07/31/17 07:55 Venous Ioniz Calcium 1.09 mmol/L (1.15-1.35) L 07/26/17 04:27 AST 161 Units/L (13-39) H 07/23/17 14:30 ALT 332 Units/L (7-52) H 07/23/17 14:30 Troponin I 0.69 ng/mL (< 0.04) H* 07/18/17 04:00 B-Natriuretic Peptide 207 pg/mL (Less than 100) H 07/17/17 15:27 Serum Total Protein 5.4 g/dL (6.4-8.9) L 07/23/17 14:30 Albumin 2.4 g/dL (3.5-5.7) L 07/23/17 14:30 Albumin/Globulin Ratio 0.8 (1.1-2.2) L 07/23/17 14:30 Ur Specific [place] 1.029 (1.010-1.025) H 07/17/17 05:45 Vancomycin Trough 16 mcg/mL (5-10) H 07/28/17 10:25 Influenza Type B (PCR) DETECTED (Not Detect) A 07/23/17 14:30 Staphylococcus sp PCR DETECTED (Not Detect) A 07/22/17 11:05 Staph aureus (PCR) DETECTED (Not Detect) A 07/22/17 11:05 mecA-Methicil Res Gene DETECTED (Not Detect) A 07/22/17 11:05 General appearance: Present: no acute distress - Respiratory Respiratory exam: Present: decreased breath sounds Additional comments: Faint expiratory wheeze bilateral upper lobes - Cardiovascular Cardiovascular exam: Present: +S1, +S2 - GI/Abdominal GI/Abdominal exam: Present: distended, normal bowel sounds, soft - Extremities Exam Additional comments: Bilateral hands remain puffy - Neurological Exam Neurological exam: Present: alert Additional comments: FIGUEROA, generalized weakness - Skin Skin exam: Present: dry, pallor, warm Palliative Quality Palliative Quality: Screen for Code Status: Yes, Screen for Goals of Care: NA, Screen for Pain: Yes, If Pain Regimen Started, Initiate Bowel Regimen: NA, Screen for Nausea/Vomitting: NA Code Status: 07/17/17 11:52 FULL [Resuscitation Status: Active] [RES] Routine Comment: Resuscitation Status: Full Code 07/30/17 10:38 DNR [Resuscitation Status: Active] [RES] Routine Comment: Resuscitation Status: [id number] - Labs CBC & Chem 7: 07/31/17 03:03 07/31/17 03:03 Labs: Laboratory Results - last 24 hr 07/30/17 07/30/17 07/31/17 12:05 21:04 00:03 WBC RBC Hgb Hct MCV MCH MCHC RDW Plt Count MPV Seg Neutrophils % Lymphocytes % Neutrophils # Lymphocytes # Nucleated RBCs/100 WBC Reactive Lymphocytes Platelet Estimate Sodium Potassium Chloride Carbon Dioxide BUN Creatinine Est GFR ( Amer) Est GFR (Non-Af Amer) BUN/Creatinine Ratio Glucose POC Glucose 258 H 119 H 131 H Calculated Osmolality Calcium Magnesium 07/31/17 07/31/17 07/31/17 03:03 03:03 04:39 WBC 19.1 H RBC 3.93 Hgb 10.8 L Hct 34.5 L MCV 87.8 MCH 27.5 L MCHC 31.3 L RDW 14.6 H Plt Count 239 MPV 12.1 Seg Neutrophils % 90.0 Lymphocytes % 10.0 Neutrophils # 17.2 H Lymphocytes # 1.9 Nucleated RBCs/100 WBC 0.1 H Reactive Lymphocytes Present A Platelet Estimate Normal Sodium 138 Potassium 3.1 L Chloride 89 L Carbon Dioxide 39 H BUN 24 H Creatinine 0.62 Est GFR ( Amer) > 60 Est GFR (Non-Af Amer) > 60 BUN/Creatinine Ratio 39 H Glucose 153 H POC Glucose 151 H Calculated Osmolality 293 Calcium 8.8 Magnesium 2.0 07/31/17 07:55 WBC RBC Hgb Hct MCV MCH MCHC RDW Plt Count MPV Seg Neutrophils % Lymphocytes % Neutrophils # Lymphocytes # Nucleated RBCs/100 WBC Reactive Lymphocytes Platelet Estimate Sodium Potassium Chloride Carbon Dioxide BUN Creatinine Est GFR ( Amer) Est GFR (Non-Af Amer) BUN/Creatinine Ratio Glucose POC Glucose 151 H Calculated Osmolality Calcium Magnesium - ABG Interpretation ABG results: ABG ABG pH 7.53 pH Units (7.32-7.45) H 07/29/17 12:35 ABG pCO2 53 mmHg (35-45) H 07/29/17 12:35 ABG pO2 80 mmHg (85-104) L 07/29/17 12:35 ABG O2 Saturation 97 % (95-98) 07/29/17 12:35 PT/INR, D-dimer PT 11.9 Seconds (9.4-12.1) 07/17/17 03:46 D-Dimer 565 ng/mLFEU (0-500) H 07/17/17 03:46 Consult Discharge Plan - Plan Referrals: NONE,PCP [Primary Care Provider] -
[2017-07-31] MEDS: Nystatin POWDER 30 GM BOTTLE TP SCH ×2 (10:07→21:14)
[2017-07-31] MEDS: Vancomycin 500 MG in 0.9 % Sodium Chloride Mini Bag 100 ML IVPB SCH ×2 (12:31→23:15)
--- NOTE | 2017-07-31 14:43 | Pulmonology Progress Note ---
<Herlinda Yee - Last Filed: 07/31/17 14:41> Date of Encounter: 07/31/17 Time of Encounter: 08:45 Assessment and Plan (1) Acute respiratory failure with hypoxia Current Visit: No Status: Acute Acute on chronic respiratory failure with hypoxemia secondary to COPD and bacteremia with MRSA pneumonia, influenza B, chronic mastoiditis, and pansinusitis. Patient began satting in the 80s while in SVT. Patient intubated on 07/17/17 and sedated. CXR negative. CTA negative for PE but did show bronchial wall thickening and mucous plugging with severe emphysematous changes. Troponin negative x1 then increased to a max of 1.06 but now trending down to 0.69. Patient extubated 07/18 and was on BIPAP FiO2 35%. Patient reintubated later that morning as patient went into SVT and worsening respiratory failure. See event note for details. 07/21: patient was having hypotension and with less sedation had decreased responsiveness. Chest x-ray, head CT, lactic acid and blood cultures ordered. Started Levophed. Began Vecuronium for lung rest. Concern for her condition may not improve. She is still full code and may need tracheostomy. Palliative care on board and discussed with family who said that she did not want a trach. 07/22: Head CT showed pansinusitis and mastoiditis. 07/23: Overnight, febrile max 102.4F. Increase WBC = 16.2 (9.2) and found to be in septic shock requiring Levophed. 07/24: Patient is found to be positive for MRSA and influenza B. Due to CT abdomen and pelvis showing colitis a GI panel was negative. 07/29: Patient extubated. Her vitals are stable and she is oriented and responding appropriately to questions. plan: - completed Tamiflu ( day 4) - Solumedrol 40mg IV Q12hrs day 3/3, switched to start Prednisone 40mg PO daily tomorrow - Duonebs scheduled Q4hrs, prn Q2hrs - Symbicort -Nystatin oral stopped, Nystatin powder started for skin canadiasis groin region - ID following, antibiotics: continued Vancomycin ( day 11, continue through August 11). s/p Zosyn (day 6)Levoquin (5 days), Vanco (2 days) Zyvox ( 2 days), flagyl (1 day) - repeat BC no growth prelim, BC 07/24/17 MRSA central venous , BC 07/22/17 gram + cocci , BC 07/17/17 prelim no growth - sputum culture 07/19 growing MRSA, 07/17 normal resp shefali. Sputum culture 07/19 few gram + cocci, + rods - restarted tube feeds 07/21/17 - lines: powerglider x2 - when clinically stable ID would like TTE - diet: full liquids (2) Acute exacerbation of chronic obstructive airways disease Current Visit: No Status: Acute Hx of COPD with home meds of Incruse Ellipta, Symbicort, albuterol. See plan above. Decrease steroids. (3) Elevated troponin Current Visit: Yes Status: Ruled-out Patient's initial troponin negative with an initial EKG showing ST depression in V3-V6. Patient went into SVT resolved with adenosine and lopressor. Patient' s repeat Troponin = 0.56. Repeat EKG showed inversion of T-waves in V2-V5. Cardiology was consulted, echo ordered, and low dose heparin drip started. Last nuclear stress test 2016, showed EF 70%, no ischemia. Echo 07/17/17: LVEF 60-65%, mild LV diastolic dysfunction, atypical septal motion consistent with post-op status. No valvular dysfunction. Plan: - Heparin drip stopped - cardiology consulted and believe due to demand ischemia no further cardiac work-up needed. signed off. (4) Diastolic heart failure Current Visit: No Status: Acute Hx of diastolic CHF. Nuclear stress 09/23/16 showed EF>70%, negative for ischemia. Echo is pending. BNP= 207. Patient is on Lasix at home but due to low normal BP and no rales will hold Lasix for now. Echo showed preserve EF mild LV diastolic dysfunction. On physical exam today, patient is less fluid overloaded. Diuresis 2.5 L in the last 24 hrs. Qualifiers: Heart failure chronicity: acute on chronic Qualified Code(s): I50.33 - Acute on chronic diastolic (congestive) heart failure (5) Bacteremia due to Gram-positive bacteria Current Visit: Yes Status: Acute See plan above. ID following. Continue Vancomycin until August 11. Repeat blood cultures prelim no growth. (6) Influenza B Current Visit: Yes Status: Resolved Tamiflu completed course. (7) Colitis Current Visit: Yes Status: Resolved CT of abdomen and pelvis showed colitis of the descending colon. Patient did have a copious liquid bowel movement. GI panel and C. difficile PCR was negative. Plan: - Zosyn 6/6 days completed - GI panel negative (8) Anxiety Current Visit: No Status: Chronic Will restart paroxetine. (9) Goals of care, counseling/discussion Current Visit: Yes Status: Acute Patient stated today that she would like her code status changed to DNR -CCA- DNI. Patient signed forms with palliative care. Subjective Principal diagnosis: acute respiratory failure with hypoxia Interval history: Ms. Scott is a 57-year-old female past medical history of COPD on 2 L, CAD status post CABG, and diastolic congestive heart failure found have acute respiratory failure secondary to COPD. 07/18, patient was extubated and is on BiPAP FiO2 35% and satting in the 90s. After extubation, patient had moderate respiratory distress with tachycardia and tachypnea on BiPAP FiO2 35%. Patient proceeded to go into SVT and was given Cardizem 5 mg. Patient had short run of V. tach and was given another 5 mg of Cardizem IVP. Patient's heart rate began to respond but patient continued increase work of breathing and decision was made to reintubate. Patient's HR returned to normal range. 07/23, patient was febrile with a maximum temperature 102.4F, patient's WBCs increased from 9.2 to 16.2 and was found to be in septic shock. Patient required Levophed. 07/30/17: GOALS OF CARE conversation: Discussed with patient this morning about code status and she clearly stated that she does not want to be intubated, does not want CPR, and if the decision was made for tracheostomy she does not desire it. This conversation was confirmed by Dr. Sharma and Rosalba with palliative care where they both received the same answers from the patient. Code status was changed to DNR-CCA- DNI. Patient is not tolerating BIPAP well as she gets anxious. She is satting well on on NC 4L. She worked with PT/OT today and they recommended SNF. She denied JOSEPH , dizziness, abd pain, CP. A 10 point review of systems was obtained and negative except was is stated above. Objective PUL Vital signs: Last Vital Signs Temp 99.0 F 07/31/17 12:27 Pulse 101 07/31/17 14:00 Resp 22 07/31/17 14:00 BP 131/87 07/31/17 14:00 Pulse Ox 96 07/31/17 14:00 Constitutional: alert, oriented, awake, resting calmly in bed Head: Normocephalic, atraumatic Heart: regular rhythm and rate, no murmurs Lungs: wheezing, with mild resp distress on 4L NC using accessory muscles Abdomen: Soft, mild distension, nontender, no guarding or rigidity. Extremities: improvement of edema compared to yesterday still +2 pitting edema in lower extremities, upper extremities bilaterally, No clubbing, capillary refill <2sec. Skin: Skin warm and dry, no jaundice Neurologic: strength generally decreased in all extremities, answering questions appropriately line: powerglider x2 Results - Laboratory Findings CBC and BMP: 07/31/17 03:03 07/31/17 03:03 ABG ABG pH 7.53 pH Units (7.32-7.45) H 07/29/17 12:35 ABG pCO2 53 mmHg (35-45) H 07/29/17 12:35 ABG pO2 80 mmHg (85-104) L 07/29/17 12:35 ABG O2 Saturation 97 % (95-98) 07/29/17 12:35 PT/INR, D-dimer PT 11.9 Seconds (9.4-12.1) 07/17/17 03:46 D-Dimer 565 ng/mLFEU (0-500) H 07/17/17 03:46 Abnormal lab findings: Abnormal lab results WBC 19.1 K/mcL (4.3-11.1) H 07/31/17 03:03 Hgb 10.8 g/dL (11.5-15.4) L 07/31/17 03:03 Hct 34.5 % (35.3-44.9) L 07/31/17 03:03 MCH 27.5 pg (28.0-33.3) L 07/31/17 03:03 MCHC 31.3 g/dL (31.6-35.5) L 07/31/17 03:03 RDW 14.6 % (11.5-14.5) H 07/31/17 03:03 Metamyelocytes % 2.0 % (0) H 07/30/17 03:00 Myelocytes % 6.0 % (0) H 07/30/17 03:00 Neutrophils # 17.2 K/mcL (1.6-8.9) H 07/31/17 03:03 Nucleated RBCs/100 WBC 0.1 /100 WBC (0) H 07/31/17 03:03 Reactive Lymphocytes Present (Not Present) A 07/31/17 03:03 Toxic Granulation Present (Not Present) A 07/27/17 03:23 Immature Plt Fraction 15.4 % (1.1-6.1) H 07/21/17 03:40 Hypochromasia Present (Not Present) A 07/23/17 03:27 Poikilocytosis 1+ (Not Present) A 07/26/17 04:08 APTT 66.6 Seconds (26.0-36.0) H 07/20/17 03:41 D-Dimer 565 ng/mLFEU (0-500) H 07/17/17 03:46 Heparin Anti-Xa, Unfract 0.99 IU/mL (0.30-0.70) H 07/18/17 06:00 ABG pH 7.53 pH Units (7.32-7.45) H 07/29/17 12:35 ABG pCO2 53 mmHg (35-45) H 07/29/17 12:35 ABG pO2 80 mmHg (85-104) L 07/29/17 12:35 ABG HCO3 44 mEq/L (21-27) H 07/29/17 12:35 ABG Total CO2 46 mEq/L (20-26) H 07/29/17 12:35 ABG Base Excess 19 mEq/L (-2 to 3) H 07/29/17 12:35 VBG pH 7.47 pH Units (7.32-7.42) H 07/29/17 04:02 VBG pCO2 64 mmHg (41-51) H 07/29/17 04:02 VBG pO2 100 mmHg (25-50) H 07/29/17 04:02 VBG HCO3 47 mEq/L (21-27) H 07/29/17 04:02 Potassium 3.1 mEq/L (3.5-5.1) L 07/31/17 03:03 Chloride 89 mEq/L (98-107) L 07/31/17 03:03 Carbon Dioxide 39 mEq/L (23-29) H 07/31/17 03:03 BUN 24 mg/dL (6-20) H 07/31/17 03:03 BUN/Creatinine Ratio 39 (6-26) H 07/31/17 03:03 Glucose 153 mg/dL (70-105) H 07/31/17 03:03 POC Glucose 207 mg/dL (58-89) H 07/31/17 12:03 Venous Ioniz Calcium 1.09 mmol/L (1.15-1.35) L 07/26/17 04:27 AST 161 Units/L (13-39) H 07/23/17 14:30 ALT 332 Units/L (7-52) H 07/23/17 14:30 Troponin I 0.69 ng/mL (< 0.04) H* 07/18/17 04:00 B-Natriuretic Peptide 207 pg/mL (Less than 100) H 07/17/17 15:27 Serum Total Protein 5.4 g/dL (6.4-8.9) L 07/23/17 14:30 Albumin 2.4 g/dL (3.5-5.7) L 07/23/17 14:30 Albumin/Globulin Ratio 0.8 (1.1-2.2) L 07/23/17 14:30 Ur Specific [place] 1.029 (1.010-1.025) H 07/17/17 05:45 Vancomycin Trough 16 mcg/mL (5-10) H 07/28/17 10:25 Influenza Type B (PCR) DETECTED (Not Detect) A 07/23/17 14:30 Staphylococcus sp PCR DETECTED (Not Detect) A 07/22/17 11:05 Staph aureus (PCR) DETECTED (Not Detect) A 07/22/17 11:05 mecA-Methicil Res Gene DETECTED (Not Detect) A 07/22/17 11:05 - Microbiology Findings Microbiology Findings: Microbiology, Last 48 Hours 07/24/17 11:45 Blood Culture - Final Central Venous Catheter No growth. 07/28/17 15:22 Blood Culture - Preliminary Central Venous Catheter No growth. 07/28/17 15:22 Blood Culture - Preliminary Central Venous Catheter No growth. 07/28/17 16:20 Blood Culture - Preliminary Peripheral Venipuncture No growth. - Clinical Findings Intake & Output: Intake & Output 07/30/17 07/31/17 07/31/17 23:59 07:59 15:59 Intake Total 200 / 200 260 / 260 Output Total 300 / 300 525 / 525 1307 / 1307 Balance -100 / -100 -265 / -265 -1307 / -1307 Weight 59.8 kg - VTE Documentation of Mechanical Device: Intermittent pneumatic compression device Consult Discharge Plan - Plan Referrals: NONE,PCP [Primary Care Provider] - <Yahir Sharma - Last Filed: 08/01/17 02:07> Date of Encounter: 08/01/17 Objective PUL Vital signs: Last Vital Signs Temp 97.2 F L 08/01/17 00:00 Pulse 87 08/01/17 01:00 Resp 28 08/01/17 01:00 BP 134/87 08/01/17 01:00 Pulse Ox 97 08/01/17 01:00 Results - Laboratory Findings CBC and BMP: 07/31/17 03:03 07/31/17 16:19 ABG ABG pH 7.53 pH Units (7.32-7.45) H 07/29/17 12:35 ABG pCO2 53 mmHg (35-45) H 07/29/17 12:35 ABG pO2 80 mmHg (85-104) L 07/29/17 12:35 ABG O2 Saturation 97 % (95-98) 07/29/17 12:35 PT/INR, D-dimer PT 11.9 Seconds (9.4-12.1) 07/17/17 03:46 D-Dimer 565 ng/mLFEU (0-500) H 07/17/17 03:46 Abnormal lab findings: Abnormal lab results WBC 19.1 K/mcL (4.3-11.1) H 07/31/17 03:03 Hgb 10.8 g/dL (11.5-15.4) L 07/31/17 03:03 Hct 34.5 % (35.3-44.9) L 07/31/17 03:03 MCH 27.5 pg (28.0-33.3) L 07/31/17 03:03 MCHC 31.3 g/dL (31.6-35.5) L 07/31/17 03:03 RDW 14.6 % (11.5-14.5) H 07/31/17 03:03 Metamyelocytes % 2.0 % (0) H 07/30/17 03:00 Myelocytes % 6.0 % (0) H 07/30/17 03:00 Neutrophils # 17.2 K/mcL (1.6-8.9) H 07/31/17 03:03 Nucleated RBCs/100 WBC 0.1 /100 WBC (0) H 07/31/17 03:03 Reactive Lymphocytes Present (Not Present) A 07/31/17 03:03 Toxic Granulation Present (Not Present) A 07/27/17 03:23 Immature Plt Fraction 15.4 % (1.1-6.1) H 07/21/17 03:40 Hypochromasia Present (Not Present) A 07/23/17 03:27 Poikilocytosis 1+ (Not Present) A 07/26/17 04:08 APTT 66.6 Seconds (26.0-36.0) H 07/20/17 03:41 D-Dimer 565 ng/mLFEU (0-500) H 07/17/17 03:46 Heparin Anti-Xa, Unfract 0.99 IU/mL (0.30-0.70) H 07/18/17 06:00 ABG pH 7.53 pH Units (7.32-7.45) H 07/29/17 12:35 ABG pCO2 53 mmHg (35-45) H 07/29/17 12:35 ABG pO2 80 mmHg (85-104) L 07/29/17 12:35 ABG HCO3 44 mEq/L (21-27) H 07/29/17 12:35 ABG Total CO2 46 mEq/L (20-26) H 07/29/17 12:35 ABG Base Excess 19 mEq/L (-2 to 3) H 07/29/17 12:35 VBG pH 7.47 pH Units (7.32-7.42) H 07/29/17 04:02 VBG pCO2 64 mmHg (41-51) H 07/29/17 04:02 VBG pO2 100 mmHg (25-50) H 07/29/17 04:02 VBG HCO3 47 mEq/L (21-27) H 07/29/17 04:02 Chloride 89 mEq/L (98-107) L 07/31/17 03:03 Carbon Dioxide 39 mEq/L (23-29) H 07/31/17 03:03 BUN 24 mg/dL (6-20) H 07/31/17 03:03 BUN/Creatinine Ratio 39 (6-26) H 07/31/17 03:03 Glucose 153 mg/dL (70-105) H 07/31/17 03:03 POC Glucose 165 mg/dL (58-89) H 07/31/17 19:51 Venous Ioniz Calcium 1.09 mmol/L (1.15-1.35) L 07/26/17 04:27 AST 161 Units/L (13-39) H 07/23/17 14:30 ALT 332 Units/L (7-52) H 07/23/17 14:30 Troponin I 0.69 ng/mL (< 0.04) H* 07/18/17 04:00 B-Natriuretic Peptide 207 pg/mL (Less than 100) H 07/17/17 15:27 Serum Total Protein 5.4 g/dL (6.4-8.9) L 07/23/17 14:30 Albumin 2.4 g/dL (3.5-5.7) L 07/23/17 14:30 Albumin/Globulin Ratio 0.8 (1.1-2.2) L 07/23/17 14:30 Ur Specific [place] 1.029 (1.010-1.025) H 07/17/17 05:45 Vancomycin Trough 16 mcg/mL (5-10) H 07/28/17 10:25 Influenza Type B (PCR) DETECTED (Not Detect) A 07/23/17 14:30 Staphylococcus sp PCR DETECTED (Not Detect) A 07/22/17 11:05 Staph aureus (PCR) DETECTED (Not Detect) A 07/22/17 11:05 mecA-Methicil Res Gene DETECTED (Not Detect) A 07/22/17 11:05 - Microbiology Findings Microbiology Findings: Microbiology, Last 48 Hours 07/24/17 11:45 Blood Culture - Final Central Venous Catheter No growth. 07/28/17 15:22 Blood Culture - Preliminary Central Venous Catheter No growth. 07/28/17 15:22 Blood Culture - Preliminary Central Venous Catheter No growth. 07/28/17 16:20 Blood Culture - Preliminary Peripheral Venipuncture No growth. - Clinical Findings Intake & Output: Intake & Output 07/31/17 07/31/17 08/01/17 15:59 23:59 07:59 Intake Total 200 / 200 Output Total 1307 / 1307 400 / 400 300 / 300 Balance -1307 / -1307 -200 / -200 -300 / -300 Weight 59 kg - Attending Attestation - Attending Attestation I saw and evaluated this patient and my medical decision-making was reviewed with the Resident Physician. I agree with the documented findings, disposition and treatment plan as described except to the extent set forth below. We independently had [id number] contact with the patient Patient seen and examined at bedside Labs, radiology, chart personally reviewed PAPER COUNTER: Patient is conscious following commands Pulm: Patient has most likely MRSA pneumonia with MRSA bactremia responded well to antibiotics now blood cultures are negative , after aggressive diuresis gas exchange was adequate will continue with BIPAP Cards: Hemodynamically stable FEN-GI: Adance diet as tolerated Renal: Labs and output reviewed to continue diuresis to keep 1 liter negative ID: MRSA bactremia now resolved repeat blood culture if it is positive patient will need TYE .To continue total course of 4 weeks of Vancomycin Heme/Onc: Labs reviewed Endo: Glucose Monitored Integ/MSK: Skin Care per routine ICU Nursing Protocol to prevent ulcers. Lines: All lines examined without evidence of infection : Dispo: critically ill High chance of respiratory failure after extubation CODE: [id number]
[2017-07-31] MEDS ORDERED: Potassium Effervescent 25 MEQ TABLET.EFF PO ONE (17:05)
[2017-07-31] MEDS ORDERED: *HR* LORazepam 2 MG/ML VIAL IVP ONE (17:21)
[2017-08-01] MEDS: Ipratropium/Albuterol Neb 3 ML IH SCH ×5 (03:52→19:34)
[2017-08-01 04:59] LABS: VBG Ionized Calcium 0.94 mmol/L (1.15-1.35)
[2017-08-01 05:11] LABS: Basophils # 0.1 K/mcL (0.0-0.2); Basophils % 0.4 %; Hematocrit 34.1 % (35.3-44.9); Hemoglobin 10.8 g/dL (11.5-15.4); Immature Granulocytes % 4.5 % (0-4); Lymphocytes # 0.6 K/mcL (0.6-4.6); Lymphocytes % 2.4 %; Mean Corpuscular HGB Conc 31.7 g/dL (31.6-35.5); Mean Corpuscular Volume 88.3 fL (83.0-100.0); Mean Platelet Volume 12.7 fL (9.4-12.4); Monocytes % 4.6 %; Neutrophils # 20.1 K/mcL (1.6-8.9); Platelet Count 268 K/mcL (140-400); Red Blood Count 3.86 M/mcL (3.82-4.97); Red Cell Distribution Width 14.9 % (11.5-14.5); Segmented Neutrophils % 88.1 %
[2017-08-01 05:12] LABS: Monocytes # 1.1 K/mcL (0.0-1.3)
[2017-08-01 05:45] LABS: Hypochromasia Present (Not Present); Platelet Estimate Normal (Normal)
[2017-08-01] MEDS: *HR* Heparin 5,000 UNIT/ML VIAL SQ SCH ×2 (06:43→17:59)
[2017-08-01 07:03] LABS: BUN/Creatinine Ratio 34 (6-26); Blood Urea Nitrogen 20 mg/dL (6-20); Calcium 8.8 mg/dL (8.6-10.3); Carbon Dioxide 32 mEq/L (23-29); Chloride 93 mEq/L (98-107); Glucose 139 mg/dL (70-105); Magnesium 2.1 mg/dL (1.6-2.6); Osmolality,Calculated 289 (280-300); Phosphorous 3.2 mg/dL (2.7-4.5); Potassium 3.8 mEq/L (3.5-5.1); Sodium 137 mEq/L (136-145); eGFR For African Americans > 60 (> 60); eGFR For Non-African Americans > 60 (> 60)
[2017-08-01] MEDS: Budesonide/Formoterol 160/4.5 MDI IH SCH ×2 (07:52→19:34)
[2017-08-01] MEDS: Insulin LISPRO 300 UNITS/3 ML VIAL SQ SCH ×4 (08:02→21:02)
[2017-08-01] MEDS: Nicotine 14 MG PATCH.TD24 TD SCH (08:13)
[2017-08-01] MEDS: predniSONE 20 MG TABLET PO SCH (08:14)
[2017-08-01] MEDS ORDERED: Furosemide 40 MG/4 ML VIAL IVP ONE (08:14)
--- NOTE | 2017-08-01 09:53 | Event Note ---
Date of Encounter: 08/01/17 Time of Encounter: 09:40 Patient awake and alert, currently on bipap. She denies pain or discomfort, assisted to remove bipap long enough to give a drink of water. Patient communicates she is feeling a little stronger, was able to work some with therapy yesterday. Appears hemodynamically stable. WBC has increased from yesterday. Remains in ICU - DNR/DNI. Palliative will follow up on clinical status on Friday.
[2017-08-01] MEDS: amLODIPine 5 MG TABLET PO SCH (10:08)
[2017-08-01] MEDS: Nystatin POWDER 30 GM BOTTLE TP SCH ×2 (10:09→21:01)
[2017-08-01] MEDS: Vancomycin 500 MG in 0.9 % Sodium Chloride Mini Bag 100 ML IVPB SCH (11:18)
--- NOTE | 2017-08-01 11:49 | Pulmonology Progress Note ---
<Herlinda Yee - Last Filed: 08/01/17 14:01> Date of Encounter: 08/01/17 Time of Encounter: 08:25 Assessment and Plan (1) Acute respiratory failure with hypoxia Current Visit: No Status: Acute Acute on chronic respiratory failure with hypoxemia secondary to COPD and bacteremia with MRSA pneumonia, influenza B, chronic mastoiditis, and pansinusitis. Patient began satting in the 80s while in SVT. Patient intubated on 07/17/17 and sedated. CXR negative. CTA negative for PE but did show bronchial wall thickening and mucous plugging with severe emphysematous changes. Troponin negative x1 then increased to a max of 1.06 but now trending down to 0.69. Patient extubated 07/18 and was on BIPAP FiO2 35%. Patient reintubated later that morning as patient went into SVT and worsening respiratory failure. See event note for details. 07/21: patient was having hypotension and with less sedation had decreased responsiveness. Chest x-ray, head CT, lactic acid and blood cultures ordered. Started Levophed. Began Vecuronium for lung rest. Concern for her condition may not improve. She is still full code and may need tracheostomy. Palliative care on board and discussed with family who said that she did not want a trach. 07/22: Head CT showed pansinusitis and mastoiditis. 07/23: Overnight, febrile max 102.4F. Increase WBC = 16.2 (9.2) and found to be in septic shock requiring Levophed. 07/24: Patient is found to be positive for MRSA and influenza B. Due to CT abdomen and pelvis showing colitis a GI panel was negative. 07/29: Patient extubated. Her vitals are stable and she is oriented and responding appropriately to questions. Plan: - lasix 40mg IV once - Prednisone 40mg PO daily, day 1/3 - Duonebs scheduled Q4hrs, Proventil q2h prn - Symbicort - ID following, antibiotics: continued Vancomycin ( day 12, continue through August 11 per ID). s/p Zosyn (day 6)Levoquin (5 days), Vanco (2 days) Zyvox ( 2 days), flagyl (1 day) - repeat BC 07/28/17 no growth prelim, BC 07/24/17 MRSA central venous , BC gram + cocci , BC 07/17/17 prelim no growth - sputum culture 07/19 growing MRSA, 07/17 normal resp shefali. Sputum culture 07/19 few gram + cocci, + rods - Encourage Incentive spirometry - completed Tamiflu ( day 08/06) - lines: powerglider x2 - diet: full liquids (2) Acute exacerbation of chronic obstructive airways disease Current Visit: No Status: Acute Hx of COPD with home meds of Incruse Ellipta, Symbicort, albuterol. See plan above. Decrease steroids. (3) Elevated troponin Current Visit: Yes Status: Ruled-out Patient's initial troponin negative with an initial EKG showing ST depression in V3-V6. Patient went into SVT resolved with adenosine and lopressor. Patient' s repeat Troponin = 0.56. Repeat EKG showed inversion of T-waves in V2-V5. Cardiology was consulted, echo ordered, and low dose heparin drip started. Last nuclear stress test 2016, showed EF 70%, no ischemia. Echo 07/17/17: LVEF 60-65%, mild LV diastolic dysfunction, atypical septal motion consistent with post-op status. No valvular dysfunction. Plan: - Heparin drip stopped - cardiology consulted and believe due to demand ischemia no further cardiac work-up needed. signed off. (4) Diastolic heart failure Current Visit: No Status: Acute Hx of diastolic CHF. Nuclear stress 09/23/16 showed EF>70%, negative for ischemia. Echo is pending. BNP= 207. Patient is on Lasix at home but due to low normal BP and no rales will hold Lasix for now. Echo showed preserve EF mild LV diastolic dysfunction. On physical exam today, patient is less fluid overloaded. Will give Lasix 40mg once. Qualifiers: Heart failure chronicity: acute on chronic Qualified Code(s): I50.33 - Acute on chronic diastolic (congestive) heart failure (5) HTN (hypertension) Current Visit: No Status: Chronic Essential HTN. Added home amlodipine. Increased home cardziem to 60mg Q6hr. Added Lisonopril 5mg daily. Continuing dieresis. Qualifiers: Hypertension type: essential hypertension Qualified Code(s): I10 - Essential (primary) hypertension (6) Bacteremia due to Gram-positive bacteria Current Visit: Yes Status: Acute See plan above. ID following. Continue Vancomycin until August 11. Repeat blood cultures prelim no growth. (7) Influenza B Current Visit: Yes Status: Resolved Tamiflu completed course. (8) Colitis Current Visit: Yes Status: Resolved CT of abdomen and pelvis showed colitis of the descending colon. Patient did have a copious liquid bowel movement. GI panel and C. difficile PCR was negative. Plan: - Zosyn 6/6 days completed - GI panel negative (9) Anxiety Current Visit: No Status: Chronic Will restart home paroxetine. (10) Goals of care, counseling/discussion Current Visit: Yes Status: Acute Patient stated today that she would like her code status changed to DNR -CCA- DNI. Patient signed forms with palliative care. Subjective Principal diagnosis: acute respiratory failure with hypoxia Interval history: Ms. Scott is a 57-year-old female past medical history of COPD on 2 L, CAD status post CABG, and diastolic congestive heart failure found have acute respiratory failure secondary to COPD. 07/18, patient was extubated and is on BiPAP FiO2 35% and satting in the 90s. After extubation, patient had moderate respiratory distress with tachycardia and tachypnea on BiPAP FiO2 35%. Patient proceeded to go into SVT and was given Cardizem 5 mg. Patient had short run of V. tach and was given another 5 mg of Cardizem IVP. Patient's heart rate began to respond but patient continued increase work of breathing and decision was made to reintubate. Patient's HR returned to normal range. 07/23, patient was febrile with a maximum temperature 102.4F, patient's WBCs increased from 9.2 to 16.2 and was found to be in septic shock. Patient required Levophed. 07/30/17: GOALS OF CARE conversation: Discussed with patient this morning about code status and she clearly stated that she does not want to be intubated, does not want CPR, and if the decision was made for tracheostomy she does not desire it. This conversation was confirmed by Dr. Sharma and Rosalba with palliative care where they both received the same answers from the patient. Code status was changed to DNR-CCA- DNI. Patient is not tolerating BIPAP well as she gets anxious. She is satting well on on NC 4L. She worked with PT/OT today and they recommended SNF. She denied JOSEPH , dizziness, abd pain, CP. A 10 point review of systems was obtained and negative except was is stated above. Objective PUL Vital signs: Last Vital Signs Temp 97.9 F 08/01/17 08:00 Pulse 101 08/01/17 10:00 Resp 32 08/01/17 11:33 BP 164/101 08/01/17 11:33 Pulse Ox 98 08/01/17 11:33 Results - Laboratory Findings CBC and BMP: 08/01/17 04:30 08/01/17 05:35 ABG ABG pH 7.53 pH Units (7.32-7.45) H 07/29/17 12:35 ABG pCO2 53 mmHg (35-45) H 07/29/17 12:35 ABG pO2 80 mmHg (85-104) L 07/29/17 12:35 ABG O2 Saturation 97 % (95-98) 07/29/17 12:35 PT/INR, D-dimer PT 11.9 Seconds (9.4-12.1) 07/17/17 03:46 D-Dimer 565 ng/mLFEU (0-500) H 07/17/17 03:46 Abnormal lab findings: Abnormal lab results WBC 22.8 K/mcL (4.3-11.1) H 08/01/17 04:30 Hgb 10.8 g/dL (11.5-15.4) L 08/01/17 04:30 Hct 34.1 % (35.3-44.9) L 08/01/17 04:30 RDW 14.9 % (11.5-14.5) H 08/01/17 04:30 MPV 12.7 fL (9.4-12.4) H 08/01/17 04:30 Immature Gran % 4.5 % (0-4) H 08/01/17 04:30 Metamyelocytes % 2.0 % (0) H 07/30/17 03:00 Myelocytes % 6.0 % (0) H 07/30/17 03:00 Neutrophils # 20.1 K/mcL (1.6-8.9) H 08/01/17 04:30 Nucleated RBCs/100 WBC 0.1 /100 WBC (0) H 07/31/17 03:03 Reactive Lymphocytes Present (Not Present) A 07/31/17 03:03 Toxic Granulation Present (Not Present) A 07/27/17 03:23 Immature Plt Fraction 15.4 % (1.1-6.1) H 07/21/17 03:40 Hypochromasia Present (Not Present) A 08/01/17 04:30 Poikilocytosis 1+ (Not Present) A 07/26/17 04:08 APTT 66.6 Seconds (26.0-36.0) H 07/20/17 03:41 D-Dimer 565 ng/mLFEU (0-500) H 07/17/17 03:46 Heparin Anti-Xa, Unfract 0.99 IU/mL (0.30-0.70) H 07/18/17 06:00 ABG pH 7.53 pH Units (7.32-7.45) H 07/29/17 12:35 ABG pCO2 53 mmHg (35-45) H 07/29/17 12:35 ABG pO2 80 mmHg (85-104) L 07/29/17 12:35 ABG HCO3 44 mEq/L (21-27) H 07/29/17 12:35 ABG Total CO2 46 mEq/L (20-26) H 07/29/17 12:35 ABG Base Excess 19 mEq/L (-2 to 3) H 07/29/17 12:35 VBG pH 7.47 pH Units (7.32-7.42) H 07/29/17 04:02 VBG pCO2 64 mmHg (41-51) H 07/29/17 04:02 VBG pO2 100 mmHg (25-50) H 07/29/17 04:02 VBG HCO3 47 mEq/L (21-27) H 07/29/17 04:02 Chloride 93 mEq/L (98-107) L 08/01/17 05:35 Carbon Dioxide 32 mEq/L (23-29) H 08/01/17 05:35 Creatinine 0.59 mg/dL (0.60-1.20) L 08/01/17 05:35 BUN/Creatinine Ratio 34 (6-26) H 08/01/17 05:35 Glucose 139 mg/dL (70-105) H 08/01/17 05:35 POC Glucose 129 mg/dL (58-89) H 08/01/17 07:44 Venous Ioniz Calcium 0.94 mmol/L (1.15-1.35) L 08/01/17 04:55 AST 161 Units/L (13-39) H 07/23/17 14:30 ALT 332 Units/L (7-52) H 07/23/17 14:30 Troponin I 0.69 ng/mL (< 0.04) H* 07/18/17 04:00 B-Natriuretic Peptide 207 pg/mL (Less than 100) H 07/17/17 15:27 Serum Total Protein 5.4 g/dL (6.4-8.9) L 07/23/17 14:30 Albumin 2.4 g/dL (3.5-5.7) L 07/23/17 14:30 Albumin/Globulin Ratio 0.8 (1.1-2.2) L 07/23/17 14:30 Ur Specific [place] 1.029 (1.010-1.025) H 07/17/17 05:45 Vancomycin Trough 14 mcg/mL (5-10) H 08/01/17 10:40 Influenza Type B (PCR) DETECTED (Not Detect) A 07/23/17 14:30 Staphylococcus sp PCR DETECTED (Not Detect) A 07/22/17 11:05 Staph aureus (PCR) DETECTED (Not Detect) A 07/22/17 11:05 mecA-Methicil Res Gene DETECTED (Not Detect) A 07/22/17 11:05 - Clinical Findings Intake & Output: Intake & Output 07/31/17 08/01/17 08/01/17 23:59 07:59 15:59 Intake Total 200 / 200 100 / 100 Output Total 400 / 400 700 / 700 275 / 275 Balance -200 / -200 -600 / -600 -275 / -275 Weight 59 kg - VTE Documentation of Mechanical Device: Intermittent pneumatic compression device Consult Discharge Plan - Plan Referrals: NONE,PCP [Primary Care Provider] - <Yahir Sharma - Last Filed: 08/02/17 00:06> Date of Encounter: 08/02/17 Objective PUL Vital signs: Last Vital Signs Temp 97.4 F L 08/01/17 21:03 Pulse 77 08/01/17 23:33 Resp 28 08/02/17 00:01 BP 130/81 08/01/17 23:00 Pulse Ox 99 08/02/17 00:01 Results - Laboratory Findings CBC and BMP: 08/01/17 04:30 08/01/17 05:35 ABG ABG pH 7.53 pH Units (7.32-7.45) H 07/29/17 12:35 ABG pCO2 53 mmHg (35-45) H 07/29/17 12:35 ABG pO2 80 mmHg (85-104) L 07/29/17 12:35 ABG O2 Saturation 97 % (95-98) 07/29/17 12:35 PT/INR, D-dimer PT 11.9 Seconds (9.4-12.1) 07/17/17 03:46 D-Dimer 565 ng/mLFEU (0-500) H 07/17/17 03:46 Abnormal lab findings: Abnormal lab results WBC 22.8 K/mcL (4.3-11.1) H 08/01/17 04:30 Hgb 10.8 g/dL (11.5-15.4) L 08/01/17 04:30 Hct 34.1 % (35.3-44.9) L 08/01/17 04:30 RDW 14.9 % (11.5-14.5) H 08/01/17 04:30 MPV 12.7 fL (9.4-12.4) H 08/01/17 04:30 Immature Gran % 4.5 % (0-4) H 08/01/17 04:30 Metamyelocytes % 2.0 % (0) H 07/30/17 03:00 Myelocytes % 6.0 % (0) H 07/30/17 03:00 Neutrophils # 20.1 K/mcL (1.6-8.9) H 08/01/17 04:30 Nucleated RBCs/100 WBC 0.1 /100 WBC (0) H 07/31/17 03:03 Reactive Lymphocytes Present (Not Present) A 07/31/17 03:03 Toxic Granulation Present (Not Present) A 07/27/17 03:23 Immature Plt Fraction 15.4 % (1.1-6.1) H 07/21/17 03:40 Hypochromasia Present (Not Present) A 08/01/17 04:30 Poikilocytosis 1+ (Not Present) A 07/26/17 04:08 APTT 66.6 Seconds (26.0-36.0) H 07/20/17 03:41 D-Dimer 565 ng/mLFEU (0-500) H 07/17/17 03:46 Heparin Anti-Xa, Unfract 0.99 IU/mL (0.30-0.70) H 07/18/17 06:00 ABG pH 7.53 pH Units (7.32-7.45) H 07/29/17 12:35 ABG pCO2 53 mmHg (35-45) H 07/29/17 12:35 ABG pO2 80 mmHg (85-104) L 07/29/17 12:35 ABG HCO3 44 mEq/L (21-27) H 07/29/17 12:35 ABG Total CO2 46 mEq/L (20-26) H 07/29/17 12:35 ABG Base Excess 19 mEq/L (-2 to 3) H 07/29/17 12:35 VBG pH 7.47 pH Units (7.32-7.42) H 07/29/17 04:02 VBG pCO2 64 mmHg (41-51) H 07/29/17 04:02 VBG pO2 100 mmHg (25-50) H 07/29/17 04:02 VBG HCO3 47 mEq/L (21-27) H 07/29/17 04:02 Chloride 93 mEq/L (98-107) L 08/01/17 05:35 Carbon Dioxide 32 mEq/L (23-29) H 08/01/17 05:35 Creatinine 0.59 mg/dL (0.60-1.20) L 08/01/17 05:35 BUN/Creatinine Ratio 34 (6-26) H 08/01/17 05:35 Glucose 139 mg/dL (70-105) H 08/01/17 05:35 POC Glucose 161 mg/dL (58-89) H 08/01/17 21:00 Venous Ioniz Calcium 0.94 mmol/L (1.15-1.35) L 08/01/17 04:55 AST 161 Units/L (13-39) H 07/23/17 14:30 ALT 332 Units/L (7-52) H 07/23/17 14:30 Troponin I 0.69 ng/mL (< 0.04) H* 07/18/17 04:00 B-Natriuretic Peptide 207 pg/mL (Less than 100) H 07/17/17 15:27 Serum Total Protein 5.4 g/dL (6.4-8.9) L 07/23/17 14:30 Albumin 2.4 g/dL (3.5-5.7) L 07/23/17 14:30 Albumin/Globulin Ratio 0.8 (1.1-2.2) L 07/23/17 14:30 Ur Specific [place] 1.029 (1.010-1.025) H 07/17/17 05:45 Vancomycin Trough 14 mcg/mL (5-10) H 08/01/17 10:40 Influenza Type B (PCR) DETECTED (Not Detect) A 07/23/17 14:30 Staphylococcus sp PCR DETECTED (Not Detect) A 07/22/17 11:05 Staph aureus (PCR) DETECTED (Not Detect) A 07/22/17 11:05 mecA-Methicil Res Gene DETECTED (Not Detect) A 07/22/17 11:05 - Clinical Findings Intake & Output: Intake & Output 08/01/17 08/01/17 08/02/17 15:59 23:59 07:59 Intake Total 0 / 0 Output Total 925 / 925 500 / 500 Balance -925 / -925 -500 / -500 - Attending Attestation - Attending Attestation I saw and evaluated this patient and my medical decision-making was reviewed with the Resident Physician. I agree with the documented findings, disposition and treatment plan as described except to the extent set forth below. We independently had [id number] contact with the patient Patient seen and examined at bedside Labs, radiology, chart personally reviewed GENERAL OPHTHALMOLOGIST: Patient is conscious following commands Pulm: Patient has most likely MRSA pneumonia with MRSA bactremia responded well to antibiotics now blood cultures are negative , after aggressive diuresis gas exchange was adequate will continue with BIPAP prn during day and BIPAP at night Cards: Hemodynamically stable FEN-GI: Advance diet as tolerated Renal: Labs and output reviewed to continue diuresis to keep 1 liter negative ID: MRSA bactremia now resolved repeat blood culture if it is positive patient will need TYE .To continue total course of 2 weeks of Vancomycin since it is not a complicated by bactremia Heme/Onc: Labs reviewed Endo: Glucose Monitored Integ/MSK: Skin Care per routine ICU Nursing Protocol to prevent ulcers. Lines: All lines examined without evidence of infection : Dispo: critically ill High chance of respiratory failure after extubation CODE: [id number]
--- NOTE | 2017-08-01 13:35 | Infectious Disease Progress No ---
Date of Encounter: 08/01/17 Time of Encounter: 13:33 - Assessment and Plan (1) Septic shock due to methicillin resistant Staphylococcus aureus Current Visit: Yes Status: Acute The patient had four SIRS criteria plus hypotension requiring vasopressors and acute respiratory failure requiring mechanical ventilation. Likely secondary to MRSA bacteremia and PNA. Improved. WBC still elevated, but tachycardia has improved. She continues to have tachypnea. Hypotension has resolved. She is no longer on the vent. Blood cultures drawn 07/22/17 were positive 2/2 sets for MRSA. Repeat blood cultures drawn 07/24 x 1 set, 07/28/17 x 3 sets are NGTD. (2) Leukocytosis Current Visit: Yes Status: Acute WBC remains elevated despite clinical improvement. Likely secondary to steroids, which are being weaned. Continue to trend. Qualifiers: Leukocytosis type: unspecified Qualified Code(s): D72.829 - Elevated white blood cell count, unspecified (3) MRSA bacteremia Current Visit: Yes Status: Acute Causative organism: MRSA. Blood cultures drawn 07/22/17 1/2 sets for MRSA. Repeat blood cultures drawn 07/24 x 1 set and 07/28/17 x 3 sets are negative. Source unclear: PNA vs. other with seeding of the lungs. Uncomplicated. No endocarditis stigmata noted on exam. She has one major and one minor modified Vidal's Criteria. TTE negative for vegetations. Low index of suspicion for IE. Will hold off on TYE for now. Continue Vancomycin IV. Pharmacy to dose. Goal trough ~15. VT this morning 14. Duration of treatment depends on the clinical picture, but likely 2 weeks from the first set of negative blood cultures. Treat through 08/11/17. Monitor renal function and for drug toxicity and dose-adjust antibiotics. (4) Ventilator-associated bacterial pneumonia Current Visit: Yes Status: Acute Causative organism: MRSA + Influenza B. Sputum culture positive for MRSA. FLu PCR + B. CXR 07/22/[address] abdomen and pelvis showed bilateral lower lobe infiltrates, left>right. No repeat imaging has been done, but the patient is no longer requiring mechanical ventilation and is improved clinically. Consider repeating CXR. Continue Vancomycin as above. (5) Colitis Current Visit: Yes Status: Resolved CT abdomen/pelvis demonstrated findings suggestive of mild focal colitis involving the distal descending colon. Clinical picture demonstrates improvement, patient denies abdominal pain, no current diarrhea. (6) Influenza B Current Visit: Yes Status: Resolved RIP positive for Influenza B - Unsure if this was the cause for initial decompensation followed by superimposed MRSA pneumonia as no influenza swab or RIP collected at the time of admission. Completed 5 days of Tamiflu. (7) Oral thrush Current Visit: Yes Status: Acute Patient has findings of oral thrush, post intubation Improved. Continue Nystatin swish and swallow. (8) Pansinusitis Current Visit: Yes Status: Acute Pansinusitis and mastoiditis identified on head CT performed 07/22/17. Causative organism unknown. ENT consulted. Completed 7 days of Zosyn. Patient still complaining of headache, which could be from the sinusitis. Start Augmentin 875mg PO BID x 7 more days. Qualifiers: Chronicity: chronic Qualified Code(s): J32.4 - Chronic pansinusitis (9) Headache Current Visit: Yes Status: Acute Etiology unclear: Sinusitis vs. other. Will re-start treatment for sinusitis and see if this improves symptoms. Continue to monitor closely. Pain management per the primary team. Qualifiers: Headache type: unspecified Headache chronicity pattern: acute headache Intractability: not intractable Qualified Code(s): R51 - Headache - Subjective Interval history: Patient seen and examined. No acute events noted overnight. Patient sitting up in bed on BIPAP. States she has been on BIPAP for about three hours this morning because she was short of breath this morning. Denies fevers, chills, or rigors. Denies chest pain. States she no longer feels short of breath. She reports a nonproductive cough. Denies nausea, vomiting, or diarrhea. Denies abdominal pain and states she ate breakfast this morning. Had a BM on Friday per the patient. Navarro catheter is patent. Denies oral thrush or new skin lesions. She does complain of a headache. Infect Dis PN-Objective Data - Labs CBC & Chem 7: 08/01/17 04:30 08/01/17 05:35 Labs: Laboratory Results - last 24 hr 07/30/17 07/31/17 07/31/17 17:39 16:19 17:14 WBC RBC Hgb Hct MCV MCH MCHC RDW Plt Count MPV Immature Gran % Seg Neutrophils % Lymphocytes % Monocytes % Eosinophils % Basophils % Neutrophils # Lymphocytes # Monocytes # Eosinophils # Basophils # Platelet Estimate Hypochromasia Sodium Potassium 3.7 Chloride Carbon Dioxide BUN Creatinine Est GFR ( Amer) Est GFR (Non-Af Amer) BUN/Creatinine Ratio Glucose POC Glucose 144 H 218 H Calculated Osmolality Calcium Venous Ioniz Calcium Phosphorus Magnesium Vancomycin Trough Specimen Rejected 07/31/17 08/01/17 08/01/17 19:51 04:30 04:30 WBC 22.8 H RBC 3.86 Hgb 10.8 L Hct 34.1 L MCV 88.3 MCH 28.0 MCHC 31.7 RDW 14.9 H Plt Count 268 MPV 12.7 H Immature Gran % 4.5 H Seg Neutrophils % 88.1 Lymphocytes % 2.4 Monocytes % 4.6 Eosinophils % 0.0 Basophils % 0.4 Neutrophils # 20.1 H Lymphocytes # 0.6 Monocytes # 1.1 Eosinophils # 0.0 Basophils # 0.1 Platelet Estimate Normal Hypochromasia Present A Sodium Potassium Chloride Carbon Dioxide BUN Creatinine Est GFR ( Amer) Est GFR (Non-Af Amer) BUN/Creatinine Ratio Glucose POC Glucose 165 H Calculated Osmolality Calcium Venous Ioniz Calcium Phosphorus Magnesium Vancomycin Trough Specimen Rejected Hemolyzed 08/01/17 08/01/17 08/01/17 04:55 05:35 07:44 WBC RBC Hgb Hct MCV MCH MCHC RDW Plt Count MPV Immature Gran % Seg Neutrophils % Lymphocytes % Monocytes % Eosinophils % Basophils % Neutrophils # Lymphocytes # Monocytes # Eosinophils # Basophils # Platelet Estimate Hypochromasia Sodium 137 Potassium 3.8 Chloride 93 L Carbon Dioxide 32 H BUN 20 Creatinine 0.59 L Est GFR ( Amer) > 60 Est GFR (Non-Af Amer) > 60 BUN/Creatinine Ratio 34 H Glucose 139 H POC Glucose 129 H Calculated Osmolality 289 Calcium 8.8 Venous Ioniz Calcium 0.94 L Phosphorus 3.2 Magnesium 2.1 Vancomycin Trough Specimen Rejected 08/01/17 08/01/17 10:40 12:07 WBC RBC Hgb Hct MCV MCH MCHC RDW Plt Count MPV Immature Gran % Seg Neutrophils % Lymphocytes % Monocytes % Eosinophils % Basophils % Neutrophils # Lymphocytes # Monocytes # Eosinophils # Basophils # Platelet Estimate Hypochromasia Sodium Potassium Chloride Carbon Dioxide BUN Creatinine Est GFR ( Amer) Est GFR (Non-Af Amer) BUN/Creatinine Ratio Glucose POC Glucose 149 H Calculated Osmolality Calcium Venous Ioniz Calcium Phosphorus Magnesium Vancomycin Trough 14 H Specimen Rejected Cultures: Cultures 07/24/17 11:45 Blood Culture - Final Central Venous Catheter No growth. 07/28/17 15:22 Blood Culture - Preliminary Central Venous Catheter No growth. 07/28/17 15:22 Blood Culture - Preliminary Central Venous Catheter No growth. 07/28/17 16:20 Blood Culture - Preliminary Peripheral Venipuncture No growth. 07/22/17 11:00 Blood Culture - Final Peripheral Venipuncture No growth. 07/22/17 20:44 Sputum Culture - Final Sputum Methicillin Resistant S.aureus 07/22/17 11:05 Blood Culture - Final Peripheral Venipuncture Methicillin Resistant S.aureus 07/23/17 14:30 Legionella Antigen - Final Urine,Catheterized Streptococcus pneumoniae Antigen (M - Final 07/19/17 16:12 Sputum Culture - Final Sputum Methicillin Resistant S.aureus 07/17/17 15:27 Sputum Culture - Final Sputum Serology 07/24/17 07/23/17 07/22/17 Range/Units 11:45 14:30 11:05 Stl C. cayetanensis PCR Not detected (Not detect) Stool Rotavirus A PCR Not detected (Not detect) Stl Adenov F 40/41 PCR Not detected (Not detect) Stool Astrovirus (PCR) Not detected (Not detect) Stool Campylobacter PCR Not detected (Not detect) Stl C. diff Tox A/B PCR Not detected (Not detect) Stool Cryptosporidium PCR Not detected (Not detect) Stl Sh Tox Pr E STEC PCR Not detected (Not detect) Stool E coli O157 PCR Not detected (Not detect) Stl Enterotoxigenic E PCR Not detected (Not detect) Stool EPEC (PCR) Not detected (Not detect) Stool EAEC (PCR) Not detected (Not detect) Stl E. histolytica PCR Not detected (Not detect) Stool Giardia Lamblia PCR Not detected (Not detect) Stool Salmonella PCR Not detected (Not detect) Stool Sapovirus (PCR) Not detected (Not detect) Stl P. shigelloides PCR Not detected (Not detect) Stl Shigella/EIEC PCR Not detected (Not detect) St Y.enterocolitica PCR Not detected (Not detect) Stool Vibrio (PCR) Not detected (Not detect) Stl Vibrio cholerae PCR Not detected (Not detect) Stl Norovirus GI/GII PCR Not detected (Not detect) Stl GI Panel (PCR) Com See below A. baumannii (PCR) Not Detected (Not Detect) Chlamy pneumoniae PCR Not Detected (Not Detect) Adenovirus (PCR) Not Detected (Not Detect) B. pertussis DNA (PCR) Not Detected (Not Detect) B.parapertussis DNA PCR Not Detected (Not Detect) Nayely albicans (PCR) Not Detected (Not Detect) C. glabrata (PCR) Not Detected (Not Detect) C. krusei (PCR) Not Detected (Not Detect) C. parapsilosis (PCR) Not Detected (Not Detect) C. tropicalis (PCR) Not Detected (Not Detect) Coronavirus OC43 (PCR) Not Detected (Not Detect) Coronavirus HKU1 (PCR) Not Detected (Not Detect) Coronavirus 229E (PCR) Not Detected (Not Detect) Coronavirus NL63 (PCR) Not Detected (Not Detect) Enterobacteriac sp PCR Not Detected (Not Detect) E. cloacae complex PCR Not Detected (Not Detect) Enterococcus sp PCR Not Detected (Not Detect) E. coli (PCR) Not Detected (Not Detect) H. influenzae (PCR) Not Detected (Not Detect) Human Metapneumovir PCR Not Detected (Not Detect) Influenza A (H1) PCR Not Detected (Not Detect) Influ A (H1N1/09) PCR Not Detected (Not Detect) Influenza A (H3) PCR Not Detected (Not Detect) Influenza A Untype (PCR) Not Detected (Not Detect) Influenza Type B (PCR) DETECTED A (Not Detect) Klebsiella oxytoca PCR Not Detected (Not Detect) Klebsiella pneumoniae Not Detected (Not Detect) List. monocytogenes PCR Not Detected (Not Detect) M.pneumoniae DNA (PCR) Not Detected (Not Detect) N. meningitidis (PCR) Not Detected (Not Detect) Parainfluenza 1 (PCR) Not Detected (Not Detect) Parainfluenza 2 (PCR) Not Detected (Not Detect) Parainfluenza 3 (PCR) Not Detected (Not Detect) Parainfluenza 4 (PCR) Not Detected (Not Detect) Proteus species (PCR) Not Detected (Not Detect) RSV (PCR) Not Detected (Not Detect) Entero/Rhino (PCR) Not Detected (Not Detect) Serratia marcescens PCR Not Detected (Not Detect) Staphylococcus sp PCR DETECTED A (Not Detect) Staph aureus (PCR) DETECTED A (Not Detect) mecA-Methicil Res Gene DETECTED A (Not Detect) Streptococcus sp PCR Not Detected (Not Detect) Group A Strep DNA Not Detected (Not Detect) Group B Strep (PCR) Not Detected (Not Detect) Strep pneumoniae (PCR) Not Detected (Not Detect) P. aeruginosa (PCR) Not Detected (Not Detect) Tristian/B-Vanco Res Genes N/A (Not Detect) KPC (blaKPC) Detect PCR N/A (Not Detect) Exam - Constitutional Vitals: Temp Pulse Resp BP Pulse Ox 97.9 F 99 27 167/112 98 08/01/17 12:00 08/01/17 12:00 08/01/17 12:00 08/01/17 12:08/01/17 12:00 General appearance: average body habitus, cooperative, no acute distress - Head Head exam: Present: atraumatic, normal inspection, normocephalic - Eye Eye exam: Present: EOMI, normal appearance, PERRL Pupils: Present: normal accommodation Additional comments: No subconjunctival hemorrhage noted. - ENT ENT exam: Present: mucous membranes dry - Neck Neck exam: Present: normal inspection - Respiratory Respiratory exam: Present: CTAB. Absent: rales, respiratory distress, rhonchi, wheezes - Cardiovascular Cardiovascular exam: Present: RRR, +S1, +S2 - GI/Abdominal GI/Abdominal exam: Present: normal bowel sounds, soft. Absent: distended, tenderness - Extremities Exam Extremities exam: Present: normal inspection. Absent: joint swelling, pedal edema, tenderness - Neurological Exam Neurological exam: Present: alert, oriented X3, no focal deficits - Psychiatric Psychiatric exam: Present: normal affect, normal mood - Skin Skin exam: Present: dry, intact, normal color, warm Additional comments: No endocarditis stigmata noted. - VTE Documentation of Mechanical Device: Intermittent pneumatic compression device Consult Discharge Plan - Plan Referrals: NONE,PCP [Primary Care Provider] - - Attending Attestation I examined this patient and my medical decision-making was reviewed with the Resident Physician. I agree with the documented findings, disposition and treatment plan as described except to the extent set forth below.
[2017-08-01] MEDS ORDERED: *HR* Metoprolol 5 MG/5 ML VIAL IVP ONE (16:54)
[2017-08-02] MEDS: Ipratropium/Albuterol Neb 3 ML IH SCH ×6 (00:01→20:16)
[2017-08-02] MEDS ORDERED: *HR* LORazepam 2 MG/ML VIAL IVP ONE (01:02)
[2017-08-02] MEDS ORDERED: *HR* LORazepam 2 MG/ML VIAL ONE (01:06)
[2017-08-02] MEDS: *HR* Heparin 5,000 UNIT/ML VIAL SQ SCH ×3 (05:08→20:25)
--- NOTE | 2017-08-02 08:26 | Pulmonology Progress Note ---
<Yousuf Raza - Last Filed: 08/02/17 15:04> Date of Encounter: 08/02/17 Time of Encounter: 08:26 Assessment and Plan (1) Septic shock due to methicillin resistant Staphylococcus aureus Current Visit: Yes Status: Acute septic shock secondary to MRSA pneumonia and bacteremia, resolved no vasopressor requirement afebrile MRSA positive sputum (3/) and blood culture x1 (07/22) negative blood culture x3 (07/28) responding well to Vancomycin Infectious Disease on board, agree with 2 week course of Vancomycin from last negative blood culture, treat through August 11 - consideration of TYE but patient is DNI and she has responded well with Vancomycin (2) Acute and chronic respiratory failure with hypercapnia Current Visit: Yes Status: Resolved secondary to COPD exacerbation, MRSA pneumonia and FLU B, improving extubated 07/29 to BiPAP currently tolerating 4L NC BiPAP at night and PRN daytime (3) COPD exacerbation Current Visit: Yes Status: Acute continue bronchodilators Duonebs , Proventil, and Symbicort tapering Prednisone 40mg PO daily, currently DAY 2/ encourage incentive spirometry (4) MRSA bacteremia Current Visit: Yes Status: Resolved resolved, uncomplicated bacteremia MRSA positive sputum (3/) and blood culture x1 (07/22) negative blood culture x3 (07/28) (5) Pneumonia Current Visit: Yes Status: Acute completed 6 day course of Zosyn and 5 days of Levaquin prior to MRSA positive sputum currently on Vancomycin, treat through August 11 Qualifiers: Pneumonia type: due to unspecified organism Laterality: right Lung location: lower lobe of lung Qualified Code(s): J18.1 - Lobar pneumonia, unspecified organism (6) Influenza B Current Visit: Yes Status: Resolved completed Tamiflu regimen (7) Tachycardia Current Visit: Yes Status: Acute currently on Cardizem 60mg q6h add Lopressor 12.5mg TID (8) Diastolic heart failure Current Visit: Yes Status: Chronic Hx of diastolic CHF Nuclear stress 09/23/16 showed EF>70%, negative for ischemia ECHO 07/17 - EF 60-65%, normal LV, mild LV diastolic dysfunction, atypical septal motion improving peripheral edema - continues to tolerate diuresis, will give IV Lasix Qualifiers: Heart failure chronicity: acute on chronic Qualified Code(s): I50.33 - Acute on chronic diastolic (congestive) heart failure (9) Pansinusitis Current Visit: Yes Status: Acute CT Head performed for AMS, showed pansinusitis currently on course of Augmentin BID for 7 days Qualifiers: Chronicity: chronic Qualified Code(s): J32.4 - Chronic pansinusitis (10) Anxiety Current Visit: Yes Status: Chronic continue home medications (11) Elevated troponin Current Visit: Yes Status: Ruled-out cardiology was consulted and signed off (12) DVT prophylaxis Current Visit: Yes Status: Acute heparin (13) Goals of care, counseling/discussion Current Visit: Yes Status: Acute DNR [id number]-EGD Subjective Principal diagnosis: acute respiratory failure with hypoxia Interval history: Patient seen and examined at bedside. No acute events overnight. Patient was on BiPAP overnight. She is currently a nasal cannula with good oxygen saturations. Continues to be soft-spoken and more somnolent today. She will awaken to voice and answers questions appropriately. She denies any dyspnea, chest pain, abdominal pain, nausea or vomiting. She has no complaints at this time. Objective PUL Vital signs: Last Vital Signs Temp 98.0 F 08/02/17 04:06 Pulse 87 08/02/17 06:00 Resp 27 08/02/17 06:00 BP 131/86 08/02/17 06:00 Pulse Ox 93 08/02/17 06:00 General appearance: no acute distress, alert, other (somnolent, answers questions appropriately) Eyes: nonicteric ENT: oropharynx dry Neck: supple Effort: mildly labored Auscultation: bilateral: diminished breath sounds, rales Cardiovascular: irregular rhythm Gastrointestinal: normoactive bowel sounds, soft, non-tender, other (mild distention) Integumentary: normal Extremities: no cyanosis, no clubbing, pink and warm, no ischemia or petechiae, edema (pitting edema in all 4 extremities) Musculoskeletal: no deformities, ROM normal normal mental status, non-focal exam, motor strength normal and symmetric affect normal, anxious Results - Laboratory Findings CBC and BMP: 08/01/17 04:30 08/01/17 05:35 ABG ABG pH 7.53 pH Units (7.32-7.45) H 07/29/17 12:35 ABG pCO2 53 mmHg (35-45) H 07/29/17 12:35 ABG pO2 80 mmHg (85-104) L 07/29/17 12:35 ABG O2 Saturation 97 % (95-98) 07/29/17 12:35 PT/INR, D-dimer PT 11.9 Seconds (9.4-12.1) 07/17/17 03:46 D-Dimer 565 ng/mLFEU (0-500) H 07/17/17 03:46 Abnormal lab findings: Abnormal lab results WBC 22.8 K/mcL (4.3-11.1) H 08/01/17 04:30 Hgb 10.8 g/dL (11.5-15.4) L 08/01/17 04:30 Hct 34.1 % (35.3-44.9) L 08/01/17 04:30 RDW 14.9 % (11.5-14.5) H 08/01/17 04:30 MPV 12.7 fL (9.4-12.4) H 08/01/17 04:30 Immature Gran % 4.5 % (0-4) H 08/01/17 04:30 Metamyelocytes % 2.0 % (0) H 07/30/17 03:00 Myelocytes % 6.0 % (0) H 07/30/17 03:00 Neutrophils # 20.1 K/mcL (1.6-8.9) H 08/01/17 04:30 Nucleated RBCs/100 WBC 0.1 /100 WBC (0) H 07/31/17 03:03 Reactive Lymphocytes Present (Not Present) A 07/31/17 03:03 Toxic Granulation Present (Not Present) A 07/27/17 03:23 Immature Plt Fraction 15.4 % (1.1-6.1) H 07/21/17 03:40 Hypochromasia Present (Not Present) A 08/01/17 04:30 Poikilocytosis 1+ (Not Present) A 07/26/17 04:08 APTT 66.6 Seconds (26.0-36.0) H 07/20/17 03:41 D-Dimer 565 ng/mLFEU (0-500) H 07/17/17 03:46 Heparin Anti-Xa, Unfract 0.99 IU/mL (0.30-0.70) H 07/18/17 06:00 ABG pH 7.53 pH Units (7.32-7.45) H 07/29/17 12:35 ABG pCO2 53 mmHg (35-45) H 07/29/17 12:35 ABG pO2 80 mmHg (85-104) L 07/29/17 12:35 ABG HCO3 44 mEq/L (21-27) H 07/29/17 12:35 ABG Total CO2 46 mEq/L (20-26) H 07/29/17 12:35 ABG Base Excess 19 mEq/L (-2 to 3) H 07/29/17 12:35 VBG pH 7.47 pH Units (7.32-7.42) H 07/29/17 04:02 VBG pCO2 64 mmHg (41-51) H 07/29/17 04:02 VBG pO2 100 mmHg (25-50) H 07/29/17 04:02 VBG HCO3 47 mEq/L (21-27) H 07/29/17 04:02 Chloride 93 mEq/L (98-107) L 08/01/17 05:35 Carbon Dioxide 32 mEq/L (23-29) H 08/01/17 05:35 Creatinine 0.59 mg/dL (0.60-1.20) L 08/01/17 05:35 BUN/Creatinine Ratio 34 (6-26) H 08/01/17 05:35 Glucose 139 mg/dL (70-105) H 08/01/17 05:35 POC Glucose 115 mg/dL (58-89) H 08/02/17 07:41 Venous Ioniz Calcium 0.94 mmol/L (1.15-1.35) L 08/01/17 04:55 AST 161 Units/L (13-39) H 07/23/17 14:30 ALT 332 Units/L (7-52) H 07/23/17 14:30 Troponin I 0.69 ng/mL (< 0.04) H* 07/18/17 04:00 B-Natriuretic Peptide 207 pg/mL (Less than 100) H 07/17/17 15:27 Serum Total Protein 5.4 g/dL (6.4-8.9) L 07/23/17 14:30 Albumin 2.4 g/dL (3.5-5.7) L 07/23/17 14:30 Albumin/Globulin Ratio 0.8 (1.1-2.2) L 07/23/17 14:30 Ur Specific [place] 1.029 (1.010-1.025) H 07/17/17 05:45 Vancomycin Trough 14 mcg/mL (5-10) H 08/01/17 10:40 Influenza Type B (PCR) DETECTED (Not Detect) A 07/23/17 14:30 Staphylococcus sp PCR DETECTED (Not Detect) A 07/22/17 11:05 Staph aureus (PCR) DETECTED (Not Detect) A 07/22/17 11:05 mecA-Methicil Res Gene DETECTED (Not Detect) A 07/22/17 11:05 - Clinical Findings Intake & Output: Intake & Output 08/01/17 08/02/17 08/02/17 23:59 07:59 15:59 Intake Total 250 / 250 Output Total 500 / 500 325 / 325 Balance -500 / -500 -75 / -75 Weight 53.9 kg - VTE Documentation of Mechanical Device: Intermittent pneumatic compression device Consult Discharge Plan - Plan Referrals: NONE,PCP [Primary Care Provider] - <Yahir Sharma - Last Filed: 08/03/17 00:53> Date of Encounter: 08/03/17 Objective PUL Vital signs: Last Vital Signs Temp 99.0 F 08/02/17 23:00 Pulse 81 08/03/17 00:46 Resp 24 08/03/17 00:46 BP 126/74 08/03/17 00:00 Pulse Ox 98 08/03/17 00:46 Results - Laboratory Findings CBC and BMP: 08/01/17 04:30 08/01/17 05:35 ABG ABG pH 7.53 pH Units (7.32-7.45) H 07/29/17 12:35 ABG pCO2 53 mmHg (35-45) H 07/29/17 12:35 ABG pO2 80 mmHg (85-104) L 07/29/17 12:35 ABG O2 Saturation 97 % (95-98) 07/29/17 12:35 PT/INR, D-dimer PT 11.9 Seconds (9.4-12.1) 07/17/17 03:46 D-Dimer 565 ng/mLFEU (0-500) H 07/17/17 03:46 Abnormal lab findings: Abnormal lab results WBC 22.8 K/mcL (4.3-11.1) H 08/01/17 04:30 Hgb 10.8 g/dL (11.5-15.4) L 08/01/17 04:30 Hct 34.1 % (35.3-44.9) L 08/01/17 04:30 RDW 14.9 % (11.5-14.5) H 08/01/17 04:30 MPV 12.7 fL (9.4-12.4) H 08/01/17 04:30 Immature Gran % 4.5 % (0-4) H 08/01/17 04:30 Metamyelocytes % 2.0 % (0) H 07/30/17 03:00 Myelocytes % 6.0 % (0) H 07/30/17 03:00 Neutrophils # 20.1 K/mcL (1.6-8.9) H 08/01/17 04:30 Nucleated RBCs/100 WBC 0.1 /100 WBC (0) H 07/31/17 03:03 Reactive Lymphocytes Present (Not Present) A 07/31/17 03:03 Toxic Granulation Present (Not Present) A 07/27/17 03:23 Immature Plt Fraction 15.4 % (1.1-6.1) H 07/21/17 03:40 Hypochromasia Present (Not Present) A 08/01/17 04:30 Poikilocytosis 1+ (Not Present) A 07/26/17 04:08 APTT 66.6 Seconds (26.0-36.0) H 07/20/17 03:41 D-Dimer 565 ng/mLFEU (0-500) H 07/17/17 03:46 Heparin Anti-Xa, Unfract 0.99 IU/mL (0.30-0.70) H 07/18/17 06:00 ABG pH 7.53 pH Units (7.32-7.45) H 07/29/17 12:35 ABG pCO2 53 mmHg (35-45) H 07/29/17 12:35 ABG pO2 80 mmHg (85-104) L 07/29/17 12:35 ABG HCO3 44 mEq/L (21-27) H 07/29/17 12:35 ABG Total CO2 46 mEq/L (20-26) H 07/29/17 12:35 ABG Base Excess 19 mEq/L (-2 to 3) H 07/29/17 12:35 VBG pH 7.47 pH Units (7.32-7.42) H 07/29/17 04:02 VBG pCO2 64 mmHg (41-51) H 07/29/17 04:02 VBG pO2 100 mmHg (25-50) H 07/29/17 04:02 VBG HCO3 47 mEq/L (21-27) H 07/29/17 04:02 Chloride 93 mEq/L (98-107) L 08/01/17 05:35 Carbon Dioxide 32 mEq/L (23-29) H 08/01/17 05:35 Creatinine 0.59 mg/dL (0.60-1.20) L 08/01/17 05:35 BUN/Creatinine Ratio 34 (6-26) H 08/01/17 05:35 Glucose 139 mg/dL (70-105) H 08/01/17 05:35 Venous Ioniz Calcium 0.94 mmol/L (1.15-1.35) L 08/01/17 04:55 AST 161 Units/L (13-39) H 07/23/17 14:30 ALT 332 Units/L (7-52) H 07/23/17 14:30 Troponin I 0.69 ng/mL (< 0.04) H* 07/18/17 04:00 B-Natriuretic Peptide 207 pg/mL (Less than 100) H 07/17/17 15:27 Serum Total Protein 5.4 g/dL (6.4-8.9) L 07/23/17 14:30 Albumin 2.4 g/dL (3.5-5.7) L 07/23/17 14:30 Albumin/Globulin Ratio 0.8 (1.1-2.2) L 07/23/17 14:30 Ur Specific [place] 1.029 (1.010-1.025) H 07/17/17 05:45 Vancomycin Trough 14 mcg/mL (5-10) H 08/01/17 10:40 Influenza Type B (PCR) DETECTED (Not Detect) A 07/23/17 14:30 Staphylococcus sp PCR DETECTED (Not Detect) A 07/22/17 11:05 Staph aureus (PCR) DETECTED (Not Detect) A 07/22/17 11:05 mecA-Methicil Res Gene DETECTED (Not Detect) A 07/22/17 11:05 - Clinical Findings Intake & Output: Intake & Output 08/02/17 08/02/17 08/03/17 15:59 23:59 07:59 Intake Total 270 / 270 Output Total 825 / 825 Balance -555 / -555 - Attending Attestation - Attending Attestation I saw and evaluated this patient and my medical decision-making was reviewed with the Resident Physician. I agree with the documented findings, disposition and treatment plan as described except to the extent set forth below. 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 Pulm: Patient had ly MRSA pneumonia with MRSA bactremia responded well to antibiotics now blood cultures are negative , after aggressive diuresis gas exchange was adequate will continue with BIPAP prn during day and BIPAP at night Cards: Hemodynamically stable To continue diuresis as tolerated FEN-GI: Advance diet as tolerated Renal: Labs and output reviewed to continue diuresis as tolerated ID: MRSA bactremia now resolved repeat blood culture if it is positive patient will need TYE .To continue total course of 2 weeks of Vancomycin since it is not a complicated by bactremia Heme/Onc: Labs reviewed Endo: Glucose Monitored Integ/MSK: Skin Care per routine ICU Nursing Protocol to prevent ulcers. Lines: All lines examined without evidence of infection : Dispo: critically ill High chance of respiratory failure after extubation CODE: [id number]
[2017-08-02] MEDS: Budesonide/Formoterol 160/4.5 MDI IH SCH ×2 (08:30→20:16)
[2017-08-02] MEDS: amLODIPine 5 MG TABLET PO SCH (09:09)
[2017-08-02] MEDS: Nicotine 14 MG PATCH.TD24 TD SCH (09:10)
[2017-08-02] MEDS: Dexmedetomidine HCl 400 MCG/100 ML MLS IVC SCH ×3 (09:10→17:07)
[2017-08-02] MEDS: Insulin LISPRO 300 UNITS/3 ML VIAL SQ SCH ×4 (09:12→21:09)
[2017-08-02] MEDS: Nystatin POWDER 30 GM BOTTLE TP SCH ×2 (09:13→20:26)
[2017-08-02] MEDS: predniSONE 20 MG TABLET PO SCH (09:57)
[2017-08-02] MEDS ORDERED: Furosemide 40 MG/4 ML VIAL IVP ONE (11:52)
[2017-08-02] MEDS ORDERED: Bisacodyl 10 MG RECTAL SUPPOSITORY RC PRN (17:25)
[2017-08-02] MEDS ORDERED: Naloxone 0.4 MG/ML INJ IVP PRN (17:25)
[2017-08-02] MEDS ORDERED: Dextrose Gel 15 GM/37.5 ML TUBE PO PRN ×2 (17:25)
[2017-08-02] MEDS ORDERED: Albuterol 2.5 MG/3 ML NEBULIZER IH PRN (17:25)
[2017-08-02] MEDS ORDERED: D5% in Water 1,000 ML IVC PRN (17:25)
[2017-08-02] MEDS ORDERED: *HR* Dextrose 50 % in Water (Syg) 50 ML SYRINGE IVP PRN (17:25)
[2017-08-03] MEDS: Ipratropium/Albuterol Neb 3 ML IH SCH ×6 (00:19→21:29)
[2017-08-03 03:33] LABS: Monocytes % 4.1 %
[2017-08-03 03:35] LABS: Basophils # 0.1 K/mcL (0.0-0.2); Basophils % 0.2 %; Hematocrit 34.4 % (35.3-44.9); Hemoglobin 10.4 g/dL (11.5-15.4); Immature Granulocytes % 1.5 % (0-4); Lymphocytes # 0.4 K/mcL (0.6-4.6); Lymphocytes % 1.4 %; Mean Corpuscular HGB Conc 30.2 g/dL (31.6-35.5); Mean Corpuscular Hemoglobin 27.3 pg (28.0-33.3); Mean Corpuscular Volume 90.3 fL (83.0-100.0); Mean Platelet Volume 12.5 fL (9.4-12.4); Monocytes # 1.1 K/mcL (0.0-1.3); Neutrophils # 24.7 K/mcL (1.6-8.9); Platelet Count 223 K/mcL (140-400); Red Blood Count 3.81 M/mcL (3.82-4.97); Red Cell Distribution Width 15.2 % (11.5-14.5); Segmented Neutrophils % 92.8 %
[2017-08-03 03:56] LABS: Platelet Estimate Normal (Normal)
[2017-08-03 04:10] LABS: BUN/Creatinine Ratio 37 (6-26); Blood Urea Nitrogen 32 mg/dL (6-20); Calcium 9.5 mg/dL (8.6-10.3); Carbon Dioxide 42 mEq/L (23-29); Chloride 93 mEq/L (98-107); Glucose 124 mg/dL (70-105); Osmolality,Calculated 302 (280-300); Potassium 3.7 mEq/L (3.5-5.1); Sodium 142 mEq/L (136-145); eGFR For African Americans > 60 (> 60); eGFR For Non-African Americans > 60 (> 60)
[2017-08-03] MEDS: *HR* Heparin 5,000 UNIT/ML VIAL SQ SCH ×2 (04:54→17:48)
--- NOTE | 2017-08-03 06:53 | Event Note ---
Date of Encounter: 08/03/17 Time of Encounter: 17:00 Patient was accepted to Dr. Khalil, hospitalist, for transfer to step down unit 2N. Hospitalist made aware of patient's current status and DNR CC-Arrest DNI. No further orders at this time.
[2017-08-03] MEDS: Budesonide/Formoterol 160/4.5 MDI IH SCH ×2 (07:52→21:30)
[2017-08-03] MEDS: amLODIPine 5 MG TABLET PO SCH (08:15)
[2017-08-03] MEDS: predniSONE 20 MG TABLET PO SCH (08:15)
[2017-08-03] MEDS: Nystatin POWDER 30 GM BOTTLE TP SCH ×2 (08:30→21:49)
[2017-08-03] MEDS: Insulin LISPRO 300 UNITS/3 ML VIAL SQ SCH ×4 (08:30→21:50)
[2017-08-03] MEDS ORDERED: Nicotine 14 MG PATCH.TD24 TD SCH (09:00)
[2017-08-03] MEDS ORDERED: Aminoglycoside Consult 1 EACH MC ONE (11:21)
--- NOTE | 2017-08-03 14:04 | Internal Med Progress Note ---
Date of Encounter: 08/03/17 Time of Encounter: 09:00 - Assessment and plan (1) DVT prophylaxis Current Visit: Yes Status: Acute Assessment and plan: Subcutaneous heparin. She is at high risk due to infection, immobility and lower extremity edema. (2) Pneumonia Current Visit: Yes Status: Acute Assessment and plan: MRSA positive sputum culture on July 22. Continue treatment with iv vancomycin. Dose by levels. Last trough was 14 2 days ago. She is at very high risk for morbidity mortality and complications due to septic shock, respiratory failure and treatment with vancomycin which requires blood level monitoring for toxicity. Qualifiers: Pneumonia type: due to methicillin-resistant Staphylococcus aureus (MRSA) Laterality: right Lung location: lower lobe of lung Qualified Code(s): J15.212 - Pneumonia due to Methicillin resistant Staphylococcus aureus (3) Septic shock due to methicillin resistant Staphylococcus aureus Current Visit: Yes Status: Acute Assessment and plan: On vancomycin. Dosing by levels. Appreciate ID recommendation. Total course of 14 days. Treat through August 11. TYE was considered however the ICU team decided to not pursue it. (4) Acute exacerbation of chronic obstructive airways disease Current Visit: No Status: Acute Assessment and plan: Continue with inhaled bronchodilators. Continue with prednisone 40 mg daily. BiPAP alternating with nasal cannula. (5) Acute respiratory failure with hypoxia and hypercapnia Current Visit: No Status: Resolved Assessment and plan: Patient currently on BiPAP. FiO2 70%. Her oxygen saturation is 99%. We will start titrating down FiO2 to maintain saturation above 92%. Wean off BiPAP as tolerated. Per ICU team the patient has been more BiPAP dependent. Prognosis appears to be poor due to decreased baseline lung function, MRSA pneumonia and septic shock. Palliative care service following. Appreciate recommendations. - Subjective Interval history: Patient was admitted to the intensive care unit and had been receiving treatment for pneumonia, respiratory failure. She was intubated on 07/17/2017. She was extubated 5 days ago. She has been tolerating BiPAP. Per ICU resident patient has been more BiPAP dependent over the last 24 hours. Patient cannot provide history due to lethargy, currently on BiPAP. - Constitutional Vitals: Temp Pulse Resp BP Pulse Ox 98 F 89 28 116/54 94 08/03/17 12:00 08/03/17 12:00 08/03/17 12:00 08/03/17 12:08/03/17 12:00 General appearance: Present: A&O X 1 (Lethargic, ill-appearing) - Eye Eye exam: Present: PERRL, conjuntiva pink, sclera anicteric Pupils: Present: PERRL - Respiratory Respiratory exam: Present: decreased breath sounds, CTAB, tachypnea. Absent: accessory muscle use, rales, rhonchi, wheezes - Cardiovascular Cardiovascular exam: Present: RRR, +S1, +S2. Absent: diastolic murmur, gallop, rubs, systolic murmur - GI/Abdominal GI/Abdominal exam: Present: normal bowel sounds, soft, no peritoneal signs. Absent: distended, tenderness - Extremities Exam Extremities exam: Present: pedal edema, warm, radial pulses palpable and symmetrical. Absent: calf tenderness, cyanotic - Skin Skin exam: Present: dry, intact Internal Medicine: Result - Labs CBC & Chem 7: 08/03/17 02:41 08/03/17 02:41 Labs: Short CBC 08/03/17 Range/Units 02:41 WBC 26.6 H (4.3-11.1) K/mcL Hgb 10.4 L (11.5-15.4) g/dL Hct 34.4 L (35.3-44.9) % Plt Count 223 (140-400) K/mcL Neutrophils # 24.7 H (1.6-8.9) K/mcL BMP 08/03/17 02:41 Sodium 142 Potassium 3.7 Chloride 93 L Carbon Dioxide 42 H* BUN 32 H Creatinine 0.87 Glucose 124 H Calcium 9.5 - ABG Interpretation ABG results: ABG ABG pH 7.53 pH Units (7.32-7.45) H 07/29/17 12:35 ABG pCO2 53 mmHg (35-45) H 07/29/17 12:35 ABG pO2 80 mmHg (85-104) L 07/29/17 12:35 ABG O2 Saturation 97 % (95-98) 07/29/17 12:35 PT/INR, D-dimer PT 11.9 Seconds (9.4-12.1) 07/17/17 03:46 D-Dimer 565 ng/mLFEU (0-500) H 07/17/17 03:46 - VTE Documentation of Mechanical Device: Intermittent pneumatic compression device Consult Discharge Plan - Plan Referrals: NONE,PCP [Primary Care Provider] -
[2017-08-04] MEDS: Ipratropium/Albuterol Neb 3 ML IH SCH ×3 (01:07→07:28)
[2017-08-04] MEDS ORDERED: *HR* LORazepam 2 MG/ML VIAL IVP ONE ×2 (04:08→08:36)
[2017-08-04] MEDS ORDERED: *HR* LORazepam 2 MG/ML VIAL ONE (04:13)
[2017-08-04] MEDS: Budesonide/Formoterol 160/4.5 MDI IH SCH (07:28)
[2017-08-04 07:35] VITALS: BP 101/62
[2017-08-04] MEDS ORDERED: *HR* Morphine 2 MG/ML SYRINGE IVP ONE (07:37)
[2017-08-04] MEDS ORDERED: Furosemide 40 MG/4 ML VIAL IVP ONE (07:41)
[2017-08-04] MEDS: amLODIPine 5 MG TABLET PO SCH (07:58)
[2017-08-04] MEDS: predniSONE 20 MG TABLET PO SCH (09:17)
--- NOTE | 2017-08-04 11:18 | Palliative Progress Note ---
Date of Encounter: 08/04/17 Time of Encounter: 11:15 - Assessment and plan (1) Debility Current Visit: Yes Status: Acute (2) Generalized pain Current Visit: Yes Status: Acute Assessment and plan: Low dose MOrphine PRN - if family arrives and we discuss, may begin Morphine drip. (3) Anxiety Current Visit: Yes Status: Chronic Assessment and plan: Has had few doses of lorazepam ordered, but these were one time doses. Will d/ w family and adjust - most likely will order once they arrive. (4) Goals of care, counseling/discussion Current Visit: Yes Status: Acute Assessment and plan: Patient appears to be actively dying. I notified son Kiet by phone - he will be calling family and plans on being here the next few hours. Notified primary nurse Jorgito to call me when he arrives. Anticipating they will desire to transition care only. (5) Acute exacerbation of chronic obstructive airways disease Current Visit: No Status: Acute (6) Acute and chronic respiratory failure with hypercapnia Current Visit: Yes Status: Resolved - Time Spent With Patient Total time spent is greater than 50% in coordination of care (as documented) at patient's floor/unit and/or counseling patient: 25 - 35 minutes - Subjective Interval history: Patient is unresponsive and on bipap. Appears she has not been able to come off bipap over the weekend, and is breathing shallow with bipap. Lower extremities are mottled. No family is present - Constitutional Vitals: Abnormal lab results WBC 26.6 K/mcL (4.3-11.1) H 08/03/17 02:41 RBC 3.81 M/mcL (3.82-4.97) L 08/03/17 02:41 Hgb 10.4 g/dL (11.5-15.4) L 08/03/17 02:41 Hct 34.4 % (35.3-44.9) L 08/03/17 02:41 MCH 27.3 pg (28.0-33.3) L 08/03/17 02:41 MCHC 30.2 g/dL (31.6-35.5) L 08/03/17 02:41 RDW 15.2 % (11.5-14.5) H 08/03/17 02:41 MPV 12.5 fL (9.4-12.4) H 08/03/17 02:41 Metamyelocytes % 2.0 % (0) H 07/30/17 03:00 Myelocytes % 6.0 % (0) H 07/30/17 03:00 Neutrophils # 24.7 K/mcL (1.6-8.9) H 08/03/17 02:41 Lymphocytes # 0.4 K/mcL (0.6-4.6) L 08/03/17 02:41 Nucleated RBCs/100 WBC 0.1 /100 WBC (0) H 07/31/17 03:03 Reactive Lymphocytes Present (Not Present) A 07/31/17 03:03 Toxic Granulation Present (Not Present) A 07/27/17 03:23 Immature Plt Fraction 15.4 % (1.1-6.1) H 07/21/17 03:40 Hypochromasia Present (Not Present) A 08/01/17 04:30 Poikilocytosis 1+ (Not Present) A 07/26/17 04:08 APTT 66.6 Seconds (26.0-36.0) H 07/20/17 03:41 D-Dimer 565 ng/mLFEU (0-500) H 07/17/17 03:46 Heparin Anti-Xa, Unfract 0.99 IU/mL (0.30-0.70) H 07/18/17 06:00 ABG pH 7.53 pH Units (7.32-7.45) H 07/29/17 12:35 ABG pCO2 53 mmHg (35-45) H 07/29/17 12:35 ABG pO2 80 mmHg (85-104) L 07/29/17 12:35 ABG HCO3 44 mEq/L (21-27) H 07/29/17 12:35 ABG Total CO2 46 mEq/L (20-26) H 07/29/17 12:35 ABG Base Excess 19 mEq/L (-2 to 3) H 07/29/17 12:35 VBG pH 7.47 pH Units (7.32-7.42) H 07/29/17 04:02 VBG pCO2 64 mmHg (41-51) H 07/29/17 04:02 VBG pO2 100 mmHg (25-50) H 07/29/17 04:02 VBG HCO3 47 mEq/L (21-27) H 07/29/17 04:02 Chloride 93 mEq/L (98-107) L 08/03/17 02:41 Carbon Dioxide 42 mEq/L (23-29) H* 08/03/17 02:41 BUN 32 mg/dL (6-20) H 08/03/17 02:41 BUN/Creatinine Ratio 37 (6-26) H 08/03/17 02:41 Glucose 124 mg/dL (70-105) H 08/03/17 02:41 POC Glucose 129 mg/dL (58-89) H 08/03/17 16:26 Calculated Osmolality 302 (280-300) H 08/03/17 02:41 Venous Ioniz Calcium 0.94 mmol/L (1.15-1.35) L 08/01/17 04:55 AST 161 Units/L (13-39) H 07/23/17 14:30 ALT 332 Units/L (7-52) H 07/23/17 14:30 Troponin I 0.69 ng/mL (< 0.04) H* 07/18/17 04:00 B-Natriuretic Peptide 207 pg/mL (Less than 100) H 07/17/17 15:27 Serum Total Protein 5.4 g/dL (6.4-8.9) L 07/23/17 14:30 Albumin 2.4 g/dL (3.5-5.7) L 07/23/17 14:30 Albumin/Globulin Ratio 0.8 (1.1-2.2) L 07/23/17 14:30 Ur Specific [place] 1.029 (1.010-1.025) H 07/17/17 05:45 Vancomycin Trough 27 mcg/mL (5-10) H 08/03/17 22:07 Influenza Type B (PCR) DETECTED (Not Detect) A 07/23/17 14:30 Staphylococcus sp PCR DETECTED (Not Detect) A 07/22/17 11:05 Staph aureus (PCR) DETECTED (Not Detect) A 07/22/17 11:05 mecA-Methicil Res Gene DETECTED (Not Detect) A 07/22/17 11:05 General appearance: Present: mild distress - Respiratory Respiratory exam: Present: decreased breath sounds, CTAB - Cardiovascular Cardiovascular exam: Present: +S1, +S2 - GI/Abdominal GI/Abdominal exam: Present: diminished bowel sounds, soft - Extremities Exam Additional comments: Lower extremities mottled - Neurological Exam Additional comments: Unresponsive to verbal and tactile stimuli. - Skin Skin exam: Present: dry, pallor, warm Palliative Quality Palliative Quality: Screen for Code Status: Yes, Screen for Goals of Care: NA, Screen for Pain: Yes, If Pain Regimen Started, Initiate Bowel Regimen: NA, Screen for Nausea/Vomitting: NA Code Status: 07/17/17 11:52 FULL [Resuscitation Status: Active] [RES] Routine Comment: Resuscitation Status: Full Code 07/30/17 10:38 DNR [Resuscitation Status: Active] [RES] Routine Comment: Resuscitation Status: CBP-[id number]-GkavsyIOV 08/04/17 08:37 CODE [Resuscitation Status: Active] [RES] Routine Comment: Resuscitation Status: DNR-Comfort Care 08/04/17 08:50 CODE [Resuscitation Status: Active] [RES] Routine Comment: Resuscitation Status: DXD-[id number]-LeauzuOUV - Labs CBC & Chem 7: 08/03/17 02:41 08/03/17 02:41 Labs: Laboratory Results - last 24 hr 08/03/17 08/03/17 08/03/17 11:51 16:26 22:07 POC Glucose 81 129 H Vancomycin Trough 27 H - Impressions Impressions Chest X-Ray 08/04/17 06:14 IMPRESSION: Increasing bilateral airspace disease, likely pneumonia. D/ / Markus Chavez MD / Markus Chavez MD Interpreting Provider: Markus Chavez MD - ABG Interpretation ABG results: ABG ABG pH 7.53 pH Units (7.32-7.45) H 07/29/17 12:35 ABG pCO2 53 mmHg (35-45) H 07/29/17 12:35 ABG pO2 80 mmHg (85-104) L 07/29/17 12:35 ABG O2 Saturation 97 % (95-98) 07/29/17 12:35 PT/INR, D-dimer PT 11.9 Seconds (9.4-12.1) 07/17/17 03:46 D-Dimer 565 ng/mLFEU (0-500) H 07/17/17 03:46 Consult Discharge Plan - Plan Referrals: Nicholas Sandoval MD [Non-Partnered Physician] - (this patient is from an [facility] no PCP appointment needed) Golden Solo MD [Partnered Physician] - 09/02/17 11:15 am
--- NOTE | 2017-08-04 12:24 | Electrocardiograph Report ---
[address] [place], [place] [address] Test Date: 2017-08-01 Pat Name: Amy Vaughn Department: 109 Room: 2N08 Gender: F [employer] Supervisor: JANEY : 1960 Requested By: Herlinda Yee Order Number: [id number] Reading MD: Rohan Zimmerman Measurements Intervals [place] Rate: 123 P: [place]: 0 QRS: 77 QRSD: 81 T: 206 QT: 311 QTc: 384 Interpretive Statements MULTIFOCAL ATRIAL TACHYCARDIA ANTEROLATERAL ISCHEMIA Electronically Signed On 08-04-2017 12:22:34 EDT by Rohan Zimmerman
--- NOTE | 2017-08-04 17:28 | Death Note ---
Discharge Sum: Summary - Date and Time Date of admission: 07/17/17 07:02 Date of : 08/04/17 Time of : 11:22 - Summary Details: 57-year-old female with history of COPD, coronary artery disease status post CABG, hypertension presented from [facility] on 07/17/17 with chest pain and shortness of breath patient was intubated in the emergency department due to hypoxia. Patient also had EKG changes showed ST depressions in V4 to V6. CTA was negative for PE. Cardiology was consulted. And patient underwent echocardiogram which showed EF of 60-65%. Thereafter cardiology signed off saying Patient deciding any further intervention. Patient was extubated on 07/18 and reintubated within hours as she went into V. tach. Patient was found to be in septic shock secondary to MRSA pneumonia and bacteremia and started on vancomycin. She required vasopressors as well. She also tested positive for influenza type B and was started on Tamiflu. Patient had CT of the abdomen and pelvis which showed colitis of the descending colon and patient was started on IV Zosyn. GI panel was negative. Palliative was following the patient and initially patient was full code. Patient had a long course on the ventilator. She was extubated on 07/29/17. At that time patient change her CODE STATUS to DNR CCA DNI. After being weaned off vasopressors, she was transferred out of the ICU. After transfer patient still BiPAP dependent and became more lethargic and altered. This morning patient was BiPAP dependent, lethargic, not awakening to sternal rub. She had mottling of her lower extremities and her lips were blue. Family was contacted by Dr. Gonzalez however he were not able to be reached. Patient had acute drop in her blood pressure and at 1122 went into asystole she did not have a heart beat or pulse. Family was eventually notified by palliative care team. - Additional Data Confirmation of as documented by pronouncing clinician: no pulse, no heart sounds Family: contacted (son contacted by Palliative care team and told of patients ), attempt made (intially could not reach son) Attending/PCP notified?: Yes Attending physician: Jerrod Pena MD Was code activated?: No Autopsy requested?: No Hospice patient?: No Discharge Sum: Diag - PCOD Probable Cause of : Cardiac arrest Discharge Sum: Prov - Provider Primary care physician: PCP NONE Attending physician on admission: Ajith Hanna Consults: 07/17/17 10:47 Consult to Nutrition [CONS] Routine Comment: Consulting Provider: NUTRITION Reason for Dietary Consult: Tube Feed Start & Manage Consult to Palliative Care [CONS] Routine Comment: Consulting Provider: Palliative Care [facility] Reason for Consult: code status and goals of care Time Notified: 10:49 Call Completed: Yes 07/23/17 08:33 Consult to Infectious Diseases [CONS] Routine Consulting Provider: Infectious Disease [facility] Reason for Consult: antibiotics recommendations for septic shock 2/2 MRSA pneumonia, pansinusitis, and mastoiditis on Zyvox and Zosyn Time Notified: 08:35 Call Completed: Yes 07/23/17 09:10 Consult to ENT [CONS] Routine Consulting Provider: ENT [facility] Reason for Consult: head CT showed pansinusitis and mastoiditis Time Notified: 09:15 Call Completed: Yes 07/30/17 11:55 Consult to Occupational Therapy [CONS] Routine Comment: Evaluate, develop and implement POC Reason for Consult: generalized weakness Does patient have active BEDREST order?: No Is patient medically & hemodynamically stable?: Yes Patient assessed for mobility or mobilized this visit?: No Consult to Physical Therapy [CONS] Routine Comment: Evaluate, develop and implement POC Reason for Consult: generalized weakness Does patient have active BEDREST order?: No Is patient medically & hemodynamically stable?: Yes Patient assessed for mobility or mobilized this visit?: No Pronouncing clinician: Sumanth Gonzalez
== END 2017-08-04 11:22 | disposition expired | DRG 207 ==
LOC: EMEROO 03:19 → ICNU 07:02 → SUATTDRO 07:02 → ICNU 08:15 → 2NNU 08-03 17:21
PROVIDERS: ADMIT Internal Medicine; ATTEND Internal Medicine